=== PATIENT | male | born 1960 | race Caucasian/White ===

== ENCOUNTER → 2020-03-20 08:06 | Outpatient (CLI) | payer OTHER, SELFPAY ==
[2020-03-18 08:47] VITALS: BMI 35.3
--- NOTE | 2020-03-20 08:21 | RAD_ITS ---
STUDY: X-RAY - LEFT TIBIA AND FIBULA REASON FOR EXAM: Male, 59 years old. BRUISING AND SWELLING ON DISTAL LATERAL LEFT LEG TECHNIQUE: 2 view(s) of the tibia and fibula were obtained. COMPARISON: None. FINDINGS: Normal visualized tibia. Normal visualized fibula. There is no demonstrated destructive osseous lesion. Probable soft tissue wound along the lateral lower leg. Correlate with clinical exam. RAD/Tibia & Fibula 2 Views IMPRESSION: Normal x-ray examination of the tibia and fibula. Electronically Signed: Sandip Merritt MD at 17:21 EDT , Service support ,
[2020-03-20 09:13] LABS: Hematocrit 44.7 % (40-54); Hemoglobin 14.4 g/dL (13.0-16.5); Mean Corp Hgb Conc 32.2 g/dL (32-36); Mean Corpuscular Hgb 29.6 pg (27.0-32.0); Mean Corpuscular Volume 91.8 fL (80-94); Mean Platelet Vol. 10.3 fl (6.2-12.0); Platelet Count 247 K/mm3 (150-450); RBC Distribution Width CV 15.1 % (11.6-14.6); RBC Distribution Width SD 49.8 fl (35.1-43.9); Red Blood Count 4.87 M/mm3 (4.6-6.2)
[2020-03-20 09:40] LABS: ALB/GLOB Ratio 1.2 RATIO (0.9-2.4); AST(SGOT) 14 U/L (15-37); Alanine Aminotransfer ALT/SGPT 31 U/L (16-61); Albumin, Serum 4.1 g/dL (3.2-5.0); Alkaline Phosphatase 57 U/L (45-117); Anion Gap 9 (5-15); BUN 20 mg/dL (7-18); BUN/Creat Ratio 26.1 RATIO (10-20); Calcium,Total 9.1 mg/dL (8.5-10.1); Chloride 104 mmol/L (98-107); Creatinine, Serum 0.76 mg/dL (0.70-1.30); EST Glomerular Filtration Rate 110 mL/min (>60); Est Glom Filt Rate - Afr Amer 133 mL/min (>60); Globulin 3.5 g/dL (2.2-4.2); Glucose 127 mg/dL (74-106); Potassium 4.1 mmol/L (3.5-5.1); Prealbumin 29.2 mg/dL (20.0-40.0); Protein, Total 7.6 g/dL (6.4-8.2); Sodium Level 137 mmol/L (136-145)
== END ==
PROVIDERS: PCP Family Medicine; Referring Provider Surgery; Visit Provider Surgery
DX: R60.9 Edema, unspecified (principal)
CPT/HCPCS: 36415; 73590; 80053; 84134; 85027

== ENCOUNTER 2020-04-01 08:30 | Outpatient (RCR) | payer OTHER, SELFPAY ==
[2020-03-18 08:47] VITALS: BP 140/76; PULSE 80; RESP 16; TEMP 36.7; BMI 35.3
--- NOTE | 2020-03-18 13:19 | HP.PCM_ITS ---
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 Current Visit: Yes Code(s): I87.093 - Postthrombotic syndrome with other complications of bilateral lower extremity (7) Hyperpigmentation of skin Status: Chronic Current Visit: Yes Code(s): L81.9 - Disorder of pigmentation, unspecified (8) Lipodermatosclerosis of both lower extremities Status: Chronic Current Visit: Yes Code(s): I83.11 - Varicose veins of right lower extremity with inflammation; I83.12 - Varicose veins of left lower extremity with inflammation (9) Diallo phlebectatica Status: Chronic Current Visit: Yes (10) Wound of left leg Status: Chronic Current Visit: Yes Qualifiers: Encounter type: initial encounter Qualified Code(s): S81.802A - Unspecified open wound, left lower leg, initial encounter Code(s): S81.802A - Unspecified open wound, left lower leg, initial encounter (11) Necrosis Status: Chronic Current Visit: Yes Code(s): I96 - Gangrene, not elsewhere classified (12) Obesity (BMI 35.0-39.9 without comorbidity) Status: Chronic Current Visit: No Code(s): E66.9 - Obesity, unspecified (13) Personal history of thrombophlebitis Status: Chronic Current Visit: Yes Code(s): Z86.72 - Personal history of thrombophlebitis History of Present Illness Date of Service: 03/18/20 Chief Complaint: Open wound of the left lateral calf, status-post incision and drainage of abscess History of Wound: This is a 59-year-old male who was admitted to [facility] approximately 1 month ago with a large abscess on the left lateral calf. On February 11, 2020, he underwent incision and drainage of the abscess. He spent approximately 5 days in the hospital, and was subsequently discharged on Augmentin. The patient claims to sleep on a flat mattress at night. However, he suffers from chronic swelling and edema in both lower extremities. Additionally, he has a history of superficial thrombophlebitis in the left lower extremity, and has undergone a prior left lower extremity vein stripping procedure in the remote past. Patient has developed chronic skin changes in his lower extremities, which include hyperpigmentation and lipodermatosclerosis in the gaiter areas bilaterally. Patient is also noted to have diallo phlebectatica at ankle level bilaterally. The patient claims to be relatively active. Current management includes the use of a wet-to-dry gauze packing daily. It is noted that patient underwent a venous duplex examination during his hospitalization recently, that was negative for any evidence of thrombosis, but indicated valvular incompetence of the deep and superficial venous systems bilaterally. 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 The patient is morbidly obese. He also suffers from hyperlipidemia. Surgical History: - - Patient has previously undergone a left lower extremity vein stripping procedure in the remote past. Home Medications: Ambulatory Orders Medication Instructions Recorded Augmentin 875-125 Tablet 875 mg PO BID 03/18/20 Rosuvastatin Calcium [Crestor] 20 mg PO DAILY 03/18/20 - Family History Paternal - - Patient's father at the age of 72 with a history of cerebrovascular accident and venous disease. Patient's mother at the age of 90, of old age. 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 He uses tobacco products rarely. He consumes alcoholic beverages rarely. He is . Lives: Spouse/ Significant Other Smoking Status: Light Smoker (<10/day) Tobacco Use: Cigarettes Alcohol: Rare Drugs: None Review of Systems Constitutional: Denies: Chills, Fever, Weight Change Eyes: Denies: Pain, Vision Change HEENT: Denies: Difficulty Hearing, Difficulty Swallowing, Sinus Congestion Cardiovascular: Denies: Chest Pain, Palpitations Respiratory: Denies: Cough, Shortness of Breath Gastrointestinal: Denies: Diarrhea, Nausea, Vomiting Genitourinary: Denies: Dysuria, Hematuria Endocrine: Denies: Heat/ Cold Intolerance, Polydipsia, Polyuria Hematologic/ Lymphatic: Denies: Easy Bruising, Easy Bleeding - Physical Exam Vital Signs Temp Pulse Resp BP 98.0 F 80 16 140/76 H 03/18/20 08:47 03/18/20 08:47 03/18/20 08:47 03/18/20 08:47 General: Alert, Oriented x3, Cooperative, No apparent distress, Well developed, Well nourished, - - The patient is morbidly obese HEENT: Atraumatic, PERRLA, EOMI, Normocephalic Oral: Moist Mucosa Neck: No JVD Lungs: Clear to auscultation, Normal air movement, No rhonchi, No wheeze, No rales Cardiovascular: Regular Rhythm, Normal S1, Normal S2 Abdomen: Soft, Non Tender, Non-Distended, Obese Extremities: No clubbing, No cyanosis, No Calf Tenderness, - - Moderate bilateral swelling and edema is noted in the lower extremities. Chronic changes are noted in the lower extremities as well. The skin changes include hyperpigmentation and lipodermatosclerosis in the gaiter areas bilaterally. Diallo phlebectatica is noted at ankle level bilaterally. There is a large open wound noted on the left lateral supramalleolar area. Upon initial inspection, there was noted to be a large amount of frankly nonviable necrotic tissue. Wound dimensions are documented elsewhere. There is no sign of infection or cellulitis. There is noted to be an area of tunneling as well, measurements of which are documented elsewhere. Wound Measurements and Assessment WC - Nurse 1 - General Ulcer Measurement Start: 03/18/20 08:47 Freq: Status: Active Protocol: Activity Type Activity Date Activity User E-Sign Co-Sign Detail Recorded Client Recorded Date Recorded By Document 03/18/20 08:47 [place] [id number] 03/18/20 09:04 [place] 03/18/20 08:47 Wound Center Nurse 1 [Ulcer Assessment] #1 Lateral LLE -Combined with other wound No -Current Size (cm) - Length 5 -Current Size (cm) - Width 5.5 -Current Size (cm) - Depth 0.8 -Total Square Cm 27.5 -Date of Last Picture (Recall this 03/18/20 field) -Photo Taken Yes -Tunneling Yes -Tunneling Position (O'clock) 1 -Tunneling Distance (cm) 3.5 -Circular Undermining No -Classification - Thickness Full Thickness with Exposed Support Structure -Exudate Amt Large -Exudate Type Serosanguineous -Wound Margin Thickened & Rolled Under -Granulation Amt Small (1-33%) -Granulation Quality Loda,Red -Slough/Fibrin Yes -Necrosis Amt Large (67-100%) -Texture (Lois-wound Skin Appearance) Induration -Moisture (Lois-wound Skin Appearance No Abnormality ) -Color (Lois-wound Skin Appearance) Hemosiderin Staining -Temperature (Lois-wound Skin Hot Appearance) -Tenderness on Palpation (Lois-wound Yes Skin Appearance) -Ulcer Cleansing Rinsed/ Irrigated with Saline -Foul Odor after Cleansing No -Anesthetic Used 4% Lidocaine Solution [Edema Assessment] -Left Calf (cm) 45 -Point of measurement (cm from the 35 medial instep) -Left Ankle (cm) 30 -Point of Measurement (cm from the 15 medial instep) WC - Nurse 2 - General Ulcer CM Notes Start: 03/18/20 08:47 Freq: Status: Active Protocol: Activity Type Activity Date Activity User E-Sign Co-Sign Detail Recorded Client Recorded Date Recorded By Document 03/18/20 09:14 DV [id number] 03/18/20 09:31 DV 03/18/20 09:14 Wound Center Nurse 2 [Procedure/Treatment] #1 Lateral LLE -Time 09:15 -Correct Patient Yes -Correct Side, Site, Position Yes -Correct Procedure Yes -Procedure Performed Yes -Type of Procedure Debridement -Clinical Debridement Subcutaneous -Post Debridement Size (cm) - Length 6.0 -Post Debridement Size (cm) - Width 5.5 -Post Debridement Size (cm) - Depth 0.4 -Total Square Cm 33.00 -Wound/Ulcer Outcome Not Healed -Ulcer Cleansing Rinsed/ Irrigated with Saline -Foul Odor after Cleansing No -Bioengineered Tissue No -Bleeding Controlled with Pressure -Offloading No -Treatment Response Procedure Tolerated Well [See Physician Procedure note for Specifics] Pain Scale: 0-10 Numeric [Pain] -Is Patient Pain Free? Yes Musculoskeletal: No Muscle Wasting Neurological: Cranial nerves II-XII grossly intact, Neuro grossly intact Psych/Mental Status: Normal Affect, Appropriate, Alert and oriented to time, place, person, mood and affect Debridement Note Post-Debridement Measurements/Treatment WC - Nurse 2 - General Ulcer CM Notes Start: 03/18/20 08:47 Freq: Status: Active Protocol: Activity Type Activity Date Activity User E-Sign Co-Sign Detail Recorded Client Recorded Date Recorded By Document 03/18/20 09:14 DV [id number] 03/18/20 09:31 DV 03/18/20 09:14 Wound Center Nurse 2 #1 Lateral LLE -Time 09:15 -Correct Patient Yes -Correct Side, Site, Position Yes -Correct Procedure Yes -Procedure Performed Yes -Type of Procedure Debridement -Clinical Debridement Subcutaneous -Post Debridement Size (cm) - Length 6.0 -Post Debridement Size (cm) - Width 5.5 -Post Debridement Size (cm) - Depth 0.4 -Total Square Cm 33.00 -Wound/Ulcer Outcome Not Healed -Ulcer Cleansing Rinsed/ Irrigated with Saline -Foul Odor after Cleansing No -Bioengineered Tissue No -Bleeding Controlled with Pressure -Offloading No -Treatment Response Procedure Tolerated Well Pain Scale: 0-10 Numeric Is Patient Pain Free? Yes Laterality: Left - Lateral supramalleolar area Anesthesia Used: 5% Lidocaine Gel Depth: Down to and including healthy tissue, in the subcutaneous layer Percentage of wound debrided: 100 Instrument Used: 5mm curette Tissue Removed: Frankly necrotic and nonviable tissue Severity: Fat Layer Exposed Amount of bleeding with debridement: Mild Bleeding Controlled with: Compression and gauze Patient tolerated procedure well Assessment/Plan Active Problems Leg swelling (Chronic) Leg edema (Chronic) Abscess of left leg (Chronic) Surgical wound present (Chronic) Chronic venous insufficiency (Chronic) 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 He was hospitalized for approximately 5 days, and underwent incision and drainage of an abscess. He presents now for definitive management. At the time of his initial presentation, patient is noted to have a large amount of frankly necrotic and nonviable tissue present at the site of his former abscess, with some tunneling as well. The patient also suffers from longstanding swelling and edema of his lower extremities, and is known to have a history of superficial thrombophlebitis in the left lower extremity previously. Physical findings suggest longstanding chronic venous insufficiency.. Plan: The patient has been advised to implement conservative treatment measures. These are to include leg elevation. He is to continue sleeping on a flat mattress at night. His legs are to be elevated to heart level, or higher, even during daytime hours. This is to be implemented as much as possible. The patient has been advised to refrain from prolonged, idle standing and sitting. Activity has been encouraged. Implementation of the calf and foot muscle pumps has been explained. Weight loss is also been recommended. We are to continue compression by means of Tayo wraps to both lower extremities, though enhanced compression will be implemented following performance of the patient's no ninvasive lower extremity arterial study. The bulk of the nonviable and necrotic tissue has been removed from the patient's wound by means of excisional debridement today. We are to implement the use of collagenase Santyl topically, which will be applied on a daily basis. The patient has been instructed in the appropriate means of application. 1/4 inch Nu Gauze will be used to pack the area of tunneling daily basis. We are to arrange for the patient to undergo a battery of diagnostic studies, including a CBC, comprehensive metabolic profile, and a serum prealbumin. An x-ray of the involved area will also be obtained. The patient will also be scheduled for a venous duplex examination and a noninvasive lower extremity arterial study. Patient is to return in 1 week for reassessment. Patient smokes rarely, but has been advised to refrain from his smoking habit. Influenza vaccine was not administered today. Patient stands 5 feet 10 inches tall. He weighs 246 pounds. His BMI is 35.3, which places him in a class II obesity category. Weight loss has been recommended, in collaboration with the patient's primary care physician has been advised.
--- NOTE | 2020-03-19 15:50 | WC ---
No precert need per [facility] insurance Call Ref# [id number]
[2020-03-25 08:09] VITALS: BP 142/80; PULSE 90; RESP 20; TEMP 36.8; BMI 35.3
--- NOTE | 2020-03-25 08:43 | PCM.WC.HP ---
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 Current Visit: Yes Code(s): I87.093 - Postthrombotic syndrome with other complications of bilateral lower extremity (7) Hyperpigmentation of skin Status: Chronic Current Visit: Yes Code(s): L81.9 - Disorder of pigmentation, unspecified (8) Lipodermatosclerosis of both lower extremities Status: Chronic Current Visit: Yes Code(s): I83.11 - Varicose veins of right lower extremity with inflammation; I83.12 - Varicose veins of left lower extremity with inflammation (9) Diallo phlebectatica Status: Chronic Current Visit: Yes (10) Wound of left leg Status: Chronic Current Visit: Yes Qualifiers: Encounter type: initial encounter Qualified Code(s): S81.802A - Unspecified open wound, left lower leg, initial encounter Code(s): S81.802A - Unspecified open wound, left lower leg, initial encounter (11) Necrosis Status: Chronic Current Visit: Yes Code(s): I96 - Gangrene, not elsewhere classified (12) Obesity (BMI 35.0-39.9 without comorbidity) Status: Chronic Current Visit: No Code(s): E66.9 - Obesity, unspecified (13) Personal history of thrombophlebitis Status: Chronic Current Visit: Yes Code(s): Z86.72 - Personal history of thrombophlebitis History of Present Illness Date of Service: 03/25/20 Chief Complaint: Open wound of the left lateral calf, status-post incision and drainage of abscess History of Wound: This is a 59-year-old male who was admitted to [facility] approximately 1 month ago with a large abscess on the left lateral calf. On February 11, 2020, he underwent incision and drainage of the abscess. He spent approximately 5 days in the hospital, and was subsequently discharged on Augmentin. The patient claims to sleep on a flat mattress at night. However, he suffers from chronic swelling and edema in both lower extremities. Additionally, he has a history of superficial thrombophlebitis in the left lower extremity, and has undergone a prior left lower extremity vein stripping procedure in the remote past. Patient has developed chronic skin changes in his lower extremities, which include hyperpigmentation and lipodermatosclerosis in the gaiter areas bilaterally. Patient is also noted to have diallo phlebectatica at ankle level bilaterally. The patient claims to be relatively active. Current management includes the use of a wet-to-dry gauze packing daily. It is noted that patient underwent a venous duplex examination during his hospitalization recently, that was negative for any evidence of thrombosis, but indicated valvular incompetence of the deep and superficial venous systems bilaterally. 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 Home Medications: Ambulatory Orders Medication Instructions Recorded Augmentin 875-125 Tablet 875 mg PO BID 03/18/20 Rosuvastatin Calcium [Crestor] 20 mg PO DAILY 03/18/20 - Family History Paternal - - Patient's father at the age of 72 with a history of cerebrovascular accident and venous disease. Patient's mother at the age of 90, of old age. Lives: Spouse/ Significant Other Smoking Status: Light Smoker (<10/day) Tobacco Use: Cigarettes Alcohol: Rare Drugs: None Review of Systems Constitutional: Denies: Chills, Fever, Weight Change Eyes: Denies: Pain, Vision Change HEENT: Denies: Difficulty Hearing, Difficulty Swallowing, Sinus Congestion Cardiovascular: Denies: Chest Pain, Palpitations Respiratory: Denies: Cough, Shortness of Breath Gastrointestinal: Denies: Diarrhea, Nausea, Vomiting Genitourinary: Denies: Dysuria, Hematuria Endocrine: Denies: Heat/ Cold Intolerance, Polydipsia, Polyuria Hematologic/ Lymphatic: Denies: Easy Bruising, Easy Bleeding - Physical Exam Vital Signs Temp Pulse Resp BP 98.3 F 90 20 H 142/80 H 03/25/20 08:09 03/25/20 08:09 03/25/20 08:09 03/25/20 08:09 General: Alert, Oriented x3, Cooperative, No apparent distress, Well developed, Well nourished HEENT: Atraumatic, PERRLA, EOMI, Normocephalic Oral: Moist Mucosa Neck: No JVD Lungs: Normal air movement Abdomen: Non-Distended Extremities: No clubbing, No cyanosis, No Calf Tenderness, - - Only minimal swelling and edema are noted in the patient's lower extremities. The wound on the left lateral calf persists. There is a moderate amount of bioburden and nonviable tissue. However, it appears improved over that at his initial visit 1 week ago. Tunneling is noted at the superior edge. There is no sign of infection or cellulitis. Dimensions are documented elsewhere. Skin: No rashes Wound Measurements and Assessment WC - Nurse 1 - General Ulcer Measurement Start: 03/18/20 08:47 Freq: Status: Active Protocol: Activity Type Activity Date Activity User E-Sign Co-Sign Detail Recorded Client Recorded Date Recorded By Document 03/25/20 08:09 HENRY [id number] 03/25/20 08:20 DL 03/25/20 08:09 Wound Center Nurse 1 [Ulcer Assessment] #1 Lateral LLE -Current Size (cm) - Length 5 -Current Size (cm) - Width 5.5 -Current Size (cm) - Depth 0.5 -Total Square Cm 27.5 -Photo Taken No -Tunneling Position (O'clock) 1 -Tunneling Distance (cm) 2.8 -Exudate Amt Small -Exudate Type Serosanguineous -Wound Margin Thickened & Rolled Under -Granulation Amt Medium (34-66%) -Granulation Quality Red -Necrosis Amt Medium (34-66%) -Necrotic Tissue Type Adherent Slough -Structure Exposed N/A -Texture (Lois-wound Skin Appearance) Scarring -Moisture (Lois-wound Skin Appearance No Abnormality ) -Color (Lois-wound Skin Appearance) Hemosiderin Staining -Temperature (Lois-wound Skin No Abnormality Appearance) (Pt Warm) -Tenderness on Palpation (Lois-wound No Skin Appearance) -Ulcer Cleansing Wound Cleanser -Foul Odor after Cleansing No -Anesthetic Used 4% Lidocaine Solution,5% Lidocaine Gel [Edema Assessment] -Left Calf (cm) 45.5 -Left Ankle (cm) 27.3 Musculoskeletal: No Muscle Wasting Neurological: Cranial nerves II-XII grossly intact, Neuro grossly intact Psych/Mental Status: Normal Affect, Appropriate, Alert and oriented to time, place, person, mood and affect Debridement Note Post-Debridement Measurements/Treatment WC - Nurse 2 - General Ulcer CM Notes Start: 03/18/20 08:47 Freq: Status: Active Protocol: Activity Type Activity Date Activity User E-Sign Co-Sign Detail Recorded Client Recorded Date Recorded By Document 03/18/20 09:14 DV [id number] 03/18/20 09:31 DV 03/18/20 09:14 Wound Center Nurse 2 #1 Lateral LLE -Time 09:15 -Correct Patient Yes -Correct Side, Site, Position Yes -Correct Procedure Yes -Procedure Performed Yes -Type of Procedure Debridement -Clinical Debridement Subcutaneous -Post Debridement Size (cm) - Length 6.0 -Post Debridement Size (cm) - Width 5.5 -Post Debridement Size (cm) - Depth 0.4 -Total Square Cm 33.00 -Wound/Ulcer Outcome Not Healed -Ulcer Cleansing Rinsed/ Irrigated with Saline -Foul Odor after Cleansing No -Bioengineered Tissue No -Bleeding Controlled with Pressure -Offloading No -Treatment Response Procedure Tolerated Well Pain Scale: 0-10 Numeric Is Patient Pain Free? Yes Laterality: Left - Lateral calf Type of Debridement: Excisional debridement Anesthesia Used: 5% Lidocaine Gel Depth: Down to and including healthy tissue, in the subcutaneous layer Percentage of wound debrided: 100 Instrument Used: 5mm curette, Forceps, - - Scissors Tissue Removed: Bioburden and nonviable tissue Severity: Fat Layer Exposed Amount of bleeding with debridement: Mild Bleeding Controlled with: Compression and gauze Patient tolerated procedure well Assessment/Plan Active Problems Leg swelling (Chronic) Leg edema (Chronic) Abscess of left leg (Chronic) Surgical wound present (Chronic) Chronic venous insufficiency (Chronic) 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 He was hospitalized for approximately 5 days, and underwent incision and drainage of an abscess. He presented here for definitive management. At the time of his initial presentation, patient was noted to have a large amount of frankly necrotic and nonviable tissue present at the site of his former abscess, with some tunneling as well. The patient also suffers from longstanding swelling and edema of his lower extremities, and is known to have a history of superficial thrombophlebitis in the left lower extremity previously. Physical findings suggest longstanding chronic venous insufficiency. The patient has undergone a battery of diagnostic testing. An x-ray of the left tibia/fibula shows soft tissue changes, but no other abnormalities. Laboratory results from 03/20/2020 are as follows: White blood count 6.0, hemoglobin 14.4, hematocrit 44.7, platelets 247,000, sodium 137, potassium 4.1, chloride 104, BUN 20, creatinine 0.76, glucose 127, calcium 9.1, total bilirubin 0.60, AST 14, ALT 31, alkaline phosphatase 57, total protein 7.6, albumin 4.1, prealbumin 29.2. Plan: The patient has been advised to continue conservative treatment measures. These are to include leg elevation. He is to continue sleeping on a flat mattress at night. His legs are to be elevated to heart level, or higher, even during daytime hours. This is to be implemented as much as possible. The patient has been advised to refrain from prolonged, idle standing and sitting. Activity has been encouraged. Implementation of the calf and foot muscle pumps has been explained. Weight loss is also been recommended. We are to continue compression by means of Tayo wraps to both lower extremities, though enhanced compression will be implemented following performance of the patient's noninvasive lower extremity arterial study. The bulk of the nonviable and necrotic tissue has been removed from the patient's wound by means of excisional debridement today. We are to continue the use of collagenase Santyl topically, which will be applied on a daily basis. The patient has been instructed in the appropriate means of application. 1/4 inch Nu Gauze will be used to pack the area of tunneling daily basis. The patient has been scheduled for a venous duplex examination and a noninvasive lower extremity arterial study. Patient is to return in 1 week for reassessment. Patient smokes rarely, but has been advised to refrain from his smoking habit. Influenza vaccine was not administered today. Patient stands 5 feet 10 inches tall. He weighs 246 pounds. His BMI is 35.3, which places him in a class II obesity category. Weight loss has been recommended, in collaboration with the patient's primary care physician has been advised.
--- NOTE | 2020-03-31 09:00 | VDLE_ITS ---
Reason For Study: swelling, pain RIGHT LEFT CFV is compressible, spontaneous, phasic, CFV is compressible, spontaneous, phasic, competent and demonstrates normal competent, and demonstrates normal augmentation. augmentation. FV is compressible, spontaneous, phasic, FV is compressible, spontaneous, phasic, competent and demonstrates normal competent and demonstrates normal augmentation. augmentation. POP V is compressible, spontaneous, phasic, POP V is compressible, spontaneous, phasic, competent and demonstrates normal competent and demonstrates normal augmentation. augmentation. T/P Trunk is compressible. T/P Trunk is compressible. PTV is compressible. PTV is compressible. RT PerV is compressible. LT PerV is compressible. SFJ is INCOMPETENT and measures 0.74 x 0.89 SFJ is INCOMPETENT and measures 1.38 x 1.40 cm. cm. GSV proximal thigh measures 0.50 x 0.52 cm. GSV proximal thigh measures 0.95 x 0.97 cm. GSV at knee measures 0.55 x 0.55 cm. GSV at knee measures 0.88 x 0.88 cm. GSV INCOMPETENT throughout for greater than GSV INCOMPETENT throughout for greater than 0.5 seconds. 0.5 seconds. SSV proximal calf is competent and measures SSV at junction is competent and measures 0.37 x 0.37 cm. 0.41 x 0.40 cm. Proximal calf varocosities are compressible. Proximal calf varocosities are compressible. Procedure Exam performed in department. The exam was diagnostic. A preliminary report was called and/or faxed to . Interpretation Summary Deep veins of the lower extremities are bilaterally patent and compressible segmentally. There is no evidence of deep vein thrombosis on either side. Valvular competence appears intact within the proximal deep venous systems bilaterally. The great saphenous veins appear bilaterally patent and compressible segmentally. Sapheno-femoral junctions are bilaterally incompetent . Segmental valvular incompetence is noted within the great saphenous veins bilaterally. Small saphenous veins are patent and competent bilaterally. Compressible varicosities are noted in the proximal calves bilaterally. Ordering Physician: Juan Alberto Muñoz Referring Physician: Tal Felix Performed By: Lucy Foley, DEDRA, RVT
--- NOTE | 2020-03-31 09:01 | ART_ITS ---
Reason For Study: PAIN/SWELLING Procedure A bilateral lower extremity continuous wave Doppler with analog waveform analysis and ankle brachial indexes. Left Segmental Pressures Left brachial= 140mmHg. Left dorsalis pedis artery = 178mmHg. Left posterior tibial artery = 172mmHg. The left dorsalis pedis waveforms are biphasic. The left posterior tibial artery waveforms are triphasic. Right Segmental Pressures Right brachial= 140mmHg. Right dorsalis pedis artery = 178mmHg. Right posterior tibial artery = 183mmHg. Right digit = 113 mmHg. The right dorsalis pedis waveforms are triphasic. The right posterior tibial artery waveforms are triphasic. Indices The right resting ankle brachial index is 1.31. The right ankle brachial index by the dorsalis pedis is 1.27. The right ankle brachial index by the posterior tibial artery is 1.31. ABIs were done at calf level. The left resting ankle brachial index is 1.27. The left ankle brachial index by the dorsalis pedis is 1.22. The left ankle brachial index by the posterior tibial artery is 1.27. ABIs were done at calf level due to LLE wound at ankle level. Interpretation Summary Triphasic Doppler waveforms are noted at ankle level on the right. Triphasic and biphasic Doppler waveforms are noted at ankle level on the left. Pulse-volume recordings appear satisfactory at calf and digital levels bilaterally. Resting ankle-brachial indices were not determined due to the presence of a wound. Calf-brachial indices and digital-brachial indices are normal bilaterally. There is no evidence of significant arterial occlusive disease in the lower extremities bilaterally. Ordering Physician: Juan Alberto Muñoz Referring Physician: Juan Alberto Muñoz Performed By: Lucy Foley RVT, RDCS
[2020-04-01 08:21] VITALS: TEMP 36.7; BMI 35.3
--- NOTE | 2020-04-01 08:52 | HP.PCM_ITS ---
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 Current Visit: Yes Code(s): I87.093 - Postthrombotic syndrome with other complications of bilateral lower extremity (7) Hyperpigmentation of skin Status: Chronic Current Visit: Yes Code(s): L81.9 - Disorder of pigmentation, unspecified (8) Lipodermatosclerosis of both lower extremities Status: Chronic Current Visit: Yes Code(s): I83.11 - Varicose veins of right lower extremity with inflammation; I83.12 - Varicose veins of left lower extremity with inflammation (9) Diallo phlebectatica Status: Chronic Current Visit: Yes (10) Wound of left leg Status: Chronic Current Visit: Yes Qualifiers: Encounter type: initial encounter Qualified Code(s): S81.802A - Unspecified open wound, left lower leg, initial encounter Code(s): S81.802A - Unspecified open wound, left lower leg, initial encounter (11) Necrosis Status: Chronic Current Visit: Yes Code(s): I96 - Gangrene, not elsewhere classified (12) Obesity (BMI 35.0-39.9 without comorbidity) Status: Chronic Current Visit: No Code(s): E66.9 - Obesity, unspecified (13) Personal history of thrombophlebitis Status: Chronic Current Visit: Yes Code(s): Z86.72 - Personal history of thrombophlebitis History of Present Illness Date of Service: 04/01/20 Chief Complaint: Open wound of the left lateral calf, status-post incision and drainage of abscess History of Wound: This is a 59-year-old male who was admitted to [facility] approximately 1 month ago with a large abscess on the left lateral calf. On February 11, 2020, he underwent incision and drainage of the abscess. He spent approximately 5 days in the hospital, and was subsequently discharged on Augmentin. The patient claims to sleep on a flat mattress at night. However, he suffers from chronic swelling and edema in both lower extremities. Additionally, he has a history of superficial thrombophlebitis in the left lower extremity, and has undergone a prior left lower extremity vein stripping procedure in the remote past. Patient has developed chronic skin changes in his lower extremities, which include hyperpigmentation and lipodermatosclerosis in the gaiter areas bilaterally. Patient is also noted to have diallo phlebectatica at ankle level bilaterally. The patient claims to be relatively active. Current management includes the use of a wet-to-dry gauze packing daily. It is noted that patient underwent a venous duplex examination during his hospitalization recently, that was negative for any evidence of thrombosis, but indicated valvular incompetence of the deep and superficial venous systems bilaterally. 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 Home Medications: Ambulatory Orders Medication Instructions Recorded Augmentin 875-125 Tablet 875 mg PO BID 03/18/20 Rosuvastatin Calcium [Crestor] 20 mg PO DAILY 03/18/20 - Family History Paternal - - Patient's father at the age of 72 with a history of cerebrovascular accident and venous disease. Patient's mother at the age of 90, of old age. Lives: Spouse/ Significant Other Smoking Status: Light Smoker (<10/day) Tobacco Use: Cigarettes Alcohol: Rare Drugs: None Review of Systems Constitutional: Denies: Chills, Fever, Weight Change Eyes: Denies: Pain, Vision Change HEENT: Denies: Difficulty Hearing, Difficulty Swallowing, Sinus Congestion Cardiovascular: Denies: Chest Pain, Palpitations Respiratory: Denies: Cough, Shortness of Breath Gastrointestinal: Denies: Diarrhea, Nausea, Vomiting Genitourinary: Denies: Dysuria, Hematuria Endocrine: Denies: Heat/ Cold Intolerance, Polydipsia, Polyuria Hematologic/ Lymphatic: Denies: Easy Bruising, Easy Bleeding - Physical Exam Vital Signs Temp Pulse Resp BP 98.0 F 90 20 H 142/80 H 04/01/20 08:21 03/25/20 08:09 03/25/20 08:09 03/25/20 08:09 General: Alert, Oriented x3, Cooperative, No apparent distress, Well developed, Well nourished HEENT: Atraumatic, PERRLA, EOMI, Normocephalic Oral: Moist Mucosa Neck: No JVD Lungs: Normal air movement Abdomen: Non-Distended, Obese Extremities: No clubbing, No cyanosis, No Calf Tenderness, - - Moderate swelling and edema persist in the patient's lower extremities bilaterally. The surgical wound persists on the left lateral calf. There is no sign of infection or cellulitis. There is a moderate amount of bioburden and nonviable tissue. Dimensions are documented elsewhere. Tunneling persists at the superior pole. In general, there appears to be slight improvement, with less nonviable tissue present within the wound bed. Skin: No rashes Wound Measurements and Assessment WC - Nurse 1 - General Ulcer Measurement Start: 03/18/20 08:47 Freq: Status: Active Protocol: Activity Type Activity Date Activity User E-Sign Co-Sign Detail Recorded Client Recorded Date Recorded By Document 04/01/20 08:21 DV [id number] 04/01/20 08:26 DV 04/01/20 08:21 Wound Center Nurse 1 [Ulcer Assessment] #1 Lateral LLE -Combined with other wound No -Current Size (cm) - Length 5.1 -Current Size (cm) - Width 5.0 -Current Size (cm) - Depth 1.1 -Total Square Cm 25.50 -Photo Taken No -Epithelialization None Present -Tunneling Yes -Tunneling Position (O'clock) 1 -Tunneling Distance (cm) 2.6 -Undermining/Tunneling No -Circular Undermining No -Classification - Thickness Full Thickness without Exposed Support Structure -Exudate Amt Large -Exudate Type Serosanguineous -Wound Margin Indistinct, Non -Visible -Granulation Amt Small (1-33%) -Granulation Quality Pale,[place] -Slough/Fibrin Yes -Necrosis Amt Medium (34-66%) -Necrotic Tissue Type Adherent Slough -Structure Exposed None/Limited to Skin Breakdown -Texture (Lois-wound Skin Appearance) Assessed, Localized Edema -Moisture (Lois-wound Skin Appearance Assessed, ) Weeping -Color (Lois-wound Skin Appearance) Assessed -Tenderness on Palpation (Lois-wound Yes Skin Appearance) -Ulcer Cleansing Rinsed/ Irrigated with Saline -Foul Odor after Cleansing No -Anesthetic Used 4% Lidocaine Solution [Edema Assessment] -Lower Limb Edema Present No WC - Nurse 2 - General Ulcer CM Notes Start: 03/18/20 08:47 Freq: Status: Active Protocol: Activity Type Activity Date Activity User E-Sign Co-Sign Detail Recorded Client Recorded Date Recorded By Document 04/01/20 08:45 DV [id number] 04/01/20 08:50 DV 04/01/20 08:45 Wound Center Nurse 2 [Procedure/Treatment] #1 Lateral LLE -Time 08:46 -Correct Patient Yes -Correct Side, Site, Position Yes -Correct Procedure Yes -Procedure Performed Yes -Type of Procedure Debridement -Clinical Debridement Subcutaneous -Post Debridement Size (cm) - Length 5.3 -Post Debridement Size (cm) - Width 5.0 -Post Debridement Size (cm) - Depth 1.2 -Total Square Cm 26.50 -Wound/Ulcer Outcome Healed- Epithelialized -Ulcer Cleansing Rinsed/ Irrigated with Saline -Foul Odor after Cleansing No -Bioengineered Tissue No -Bleeding Controlled with Pressure -Offloading No -Treatment Response Procedure Tolerated Well [See Physician Procedure note for Specifics] Pain Scale: 0-10 Numeric [Pain] -Is Patient Pain Free? Yes Musculoskeletal: No Muscle Wasting Neurological: Cranial nerves II-XII grossly intact, Neuro grossly intact Psych/Mental Status: Normal Affect, Appropriate, Alert and oriented to time, place, person, mood and affect Debridement Note Post-Debridement Measurements/Treatment WC - Nurse 2 - General Ulcer CM Notes Start: 03/18/20 08:47 Freq: Status: Active Protocol: Activity Type Activity Date Activity User E-Sign Co-Sign Detail Recorded Client Recorded Date Recorded By Document 03/18/20 09:14 DV [id number] 03/18/20 09:31 DV Document 03/25/20 08:41 DV [id number] 03/25/20 08:43 DV Document 04/01/20 08:45 DV [id number] 04/01/20 08:50 DV 03/18/20 03/25/20 04/01/20 09:14 08:41 08:45 Wound Center Nurse 2 #1 Lateral LLE -Time 09:15 08:42 08:46 -Correct Patient Yes Yes Yes -Correct Side, Site, Position Yes Yes Yes -Correct Procedure Yes Yes Yes -Procedure Performed Yes Yes Yes -Type of Procedure Debridement Debridement Debridement -Clinical Debridement Subcutaneous Subcutaneous Subcutaneous -Post Debridement Size (cm) - Length 6.0 5.4 5.3 -Post Debridement Size (cm) - Width 5.5 5.0 5.0 -Post Debridement Size (cm) - Depth 0.4 1.4 1.2 -Total Square Cm 33.00 27.00 26.50 -Wound/Ulcer Outcome Not Healed Not Healed Healed- Epithelialized -Ulcer Cleansing Rinsed/ Rinsed/ Rinsed/ Irrigated with Irrigated with Irrigated with Saline Saline Saline -Foul Odor after Cleansing No No No -Bioengineered Tissue No No No -Bleeding Controlled with Pressure Pressure Pressure -Offloading No No No -Treatment Response Procedure Procedure Procedure Tolerated Well Tolerated Well Tolerated Well Pain Scale: 0-10 Numeric Is Patient Pain Free? Yes Yes Yes Laterality: Left - Lateral calf Type of Debridement: Excisional debridement Anesthesia Used: 5% Lidocaine Gel Depth: Down to and including healthy tissue, in the subcutaneous layer Percentage of wound debrided: 100 Instrument Used: 5mm curette Tissue Removed: Bioburden and nonviable tissue Severity: Fat Layer Exposed Amount of bleeding with debridement: Mild Bleeding Controlled with: Compression and gauze Patient tolerated procedure well Assessment/Plan Active Problems Leg swelling (Chronic) Leg edema (Chronic) Abscess of left leg (Chronic) Surgical wound present (Chronic) Chronic venous insufficiency (Chronic) 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 He was hospitalized for approximately 5 days, and underwent incision and drainage of the abscess. He presented here for definitive management. At the time of his initial presentation, patient was noted to have a large amount of frankly necrotic and nonviable tissue present at the site of his former abscess, with some tunneling as well. The patient also suffers from longstanding swelling and edema of his lower extremities, and is known to have a history of superficial thrombophlebitis in the left lower extremity previously. Physical findings suggest longstanding chronic venous insufficiency. The patient has undergone a battery of diagnostic testing. An x-ray of the left tibia/fibula shows soft tissue changes, but no other abnormalities. Laboratory results from 03/20/2020 are as follows: White blood count 6.0, hemoglobin 14.4, hematocrit 44.7, platelets 247,000, sodium 137, potassium 4.1, chloride 104, BUN 20, creatinine 0.76, glucose 127, calcium 9.1, total bilirubin 0.60, AST 14, ALT 31, alkaline phosphatase 57, total protein 7.6, albumin 4.1, prealbumin 29.2. Recently, a noninvasive lower extremity arterial study revealed no evidence of significant arterial occlusive disease in the lower extremities. A venous duplex examination revealed incompetence of the great saphenous veins bilaterally. Plan: The patient has been advised to continue conservative treatment measures. These are to include leg elevation. He is to continue sleeping on a flat mattress at night. His legs are to be elevated to heart level, or higher, even during daytime hours. This is to be implemented as much as possible. The patient has been advised to refrain from prolonged, idle standing and sitting. Activity has been encouraged. Implementation of the calf and foot muscle pumps has been explained. Weight loss is also been recommended. We are to continue compression by means of SurePress wraps to both lower extremities. The bulk of the nonviable and necrotic tissue has been removed from the patient's wound by means of excisional debridements. We are to continue the use of collagenase Santyl topically, which will be applied on a daily basis. The patient has been instructed in the appropriate means of application. 1/4 inch Nu Gauze will be used to pack the area of tunneling on a daily basis. The patient is to return in 1 week for reassessment. We will consider transitioning to the use of negative pressure wound therapy in the near future, perhaps next week, depending upon the patient's perceived progress at his next visit. Patient smokes rarely, but has been advised to refrain from his smoking habit. Influenza vaccine was not administered today. Patient stands 5 feet 10 inches tall. He weighs 246 pounds. His BMI is 35.3, which places him in a class II obesity category. Weight loss has been recommended, in collaboration with the patient's primary care physician has been advised.
[2020-04-01 12:28] VITALS: BMI 35.3
== END 2020-04-01 23:59 ==
LOC: WC 08:30
PROVIDERS: PCP Family Medicine; Referring Provider Surgery; Visit Provider Surgery
DX: I83.12 Varicose veins of left lower extremity with inflammation (principal); I83.11 Varicose veins of right lower extremity with inflammation; M79.89 Other specified soft tissue disorders; R60.0 Localized edema; L02.416 Cutaneous abscess of left lower limb; T14.8XXA Other injury of unspecified body region, initial encounter; Y83.8 Other surgical procedures as the cause of abnormal reaction of the patient, or of later complication, without mention of misadventure at the time of the procedure; E66.01 Morbid (severe) obesity due to excess calories; Z68.35 Body mass index [BMI] 35.0-35.9, adult; E78.5 Hyperlipidemia, unspecified; Z79.899 Other long term (current) drug therapy; F17.210 Nicotine dependence, cigarettes, uncomplicated; I96 Gangrene, not elsewhere classified
CPT/HCPCS: 11042; 11045; 93922; 93970; 99203; G0463

== ENCOUNTER 2020-04-29 08:00 | Outpatient (RCR) | payer OTHER, SELFPAY ==
[2020-04-02 00:36] VITALS: BP 142/80; PULSE 90; RESP 20; TEMP 36.7
--- NOTE | 2020-04-03 11:52 | WC ---
There is notification from [facility] that the use [facility] will be covered by the patients insurance. Insurance contact is Giovani and Ref# [id number]
[2020-04-08 08:28] VITALS: BP 145/86; PULSE 91; RESP 16; TEMP 36.4; BMI 35.3
--- NOTE | 2020-04-08 08:50 | PCM.WC.HP ---
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 Current Visit: Yes Code(s): I87.093 - Postthrombotic syndrome with other complications of bilateral lower extremity (7) Hyperpigmentation of skin Status: Chronic Current Visit: Yes Code(s): L81.9 - Disorder of pigmentation, unspecified (8) Lipodermatosclerosis of both lower extremities Status: Chronic Current Visit: Yes Code(s): I83.11 - Varicose veins of right lower extremity with inflammation; I83.12 - Varicose veins of left lower extremity with inflammation (9) Diallo phlebectatica Status: Chronic Current Visit: Yes (10) Wound of left leg Status: Chronic Current Visit: Yes Qualifiers: Encounter type: subsequent encounter Qualified Code(s): S81.802D - Unspecified open wound, left lower leg, subsequent encounter Code(s): S81.802A - Unspecified open wound, left lower leg, initial encounter (11) Necrosis Status: Chronic Current Visit: No Code(s): I96 - Gangrene, not elsewhere classified (12) Obesity (BMI 35.0-39.9 without comorbidity) Status: Chronic Current Visit: No Code(s): E66.9 - Obesity, unspecified (13) Personal history of thrombophlebitis Status: Chronic Current Visit: No Code(s): Z86.72 - Personal history of thrombophlebitis History of Present Illness Date of Service: 04/08/20 Chief Complaint: Open wound of the left lateral calf, status-post incision and drainage of abscess History of Wound: This is a 59-year-old male who was admitted to [facility] approximately 1 month ago with a large abscess on the left lateral calf. On February 11, 2020, he underwent incision and drainage of the abscess. He spent approximately 5 days in the hospital, and was subsequently discharged on Augmentin. The patient claims to sleep on a flat mattress at night. However, he suffers from chronic swelling and edema in both lower extremities. Additionally, he has a history of superficial thrombophlebitis in the left lower extremity, and has undergone a prior left lower extremity vein stripping procedure in the remote past. Patient has developed chronic skin changes in his lower extremities, which include hyperpigmentation and lipodermatosclerosis in the gaiter areas bilaterally. Patient is also noted to have diallo phlebectatica at ankle level bilaterally. The patient claims to be relatively active. Current management includes the use of a wet-to-dry gauze packing daily. It is noted that patient underwent a venous duplex examination during his hospitalization recently, that was negative for any evidence of thrombosis, but indicated valvular incompetence of the deep and superficial venous systems bilaterally. 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 Home Medications: Ambulatory Orders Medication Instructions Recorded Augmentin 875-125 Tablet 875 mg PO BID 03/18/20 Rosuvastatin Calcium [Crestor] 20 mg PO DAILY 03/18/20 - Family History Paternal - - Patient's father at the age of 72 with a history of cerebrovascular accident and venous disease. Patient's mother at the age of 90, of old age. Smoking Status: Light Smoker (<10/day) Tobacco Use: Cigarettes Review of Systems Constitutional: Denies: Chills, Fever, Weight Change Eyes: Denies: Pain, Vision Change HEENT: Denies: Difficulty Hearing, Difficulty Swallowing, Sinus Congestion Cardiovascular: Denies: Chest Pain, Palpitations Respiratory: Denies: Cough, Shortness of Breath Gastrointestinal: Denies: Diarrhea, Nausea, Vomiting Genitourinary: Denies: Dysuria, Hematuria Endocrine: Denies: Heat/ Cold Intolerance, Polydipsia, Polyuria Hematologic/ Lymphatic: Denies: Easy Bruising, Easy Bleeding - Physical Exam Vital Signs Temp Pulse Resp BP 97.5 F L 91 16 145/86 H 04/08/20 08:28 04/08/20 08:28 04/08/20 08:28 04/08/20 08:28 General: Alert, Oriented x3, Cooperative, No apparent distress, Well developed, Well nourished HEENT: Atraumatic, PERRLA, EOMI, Normocephalic Oral: Moist Mucosa Neck: No JVD Lungs: Normal air movement Abdomen: Non-Distended Extremities: No clubbing, No cyanosis, No Calf Tenderness, - - Mild swelling and edema persist in the left lower extremity, though continuing to improve. Chronic skin changes are noted bilaterally, namely hyperpigmentation and lipodermatosclerosis in the gaiter areas. Scattered varicosities are also noted. The ulceration on the left lateral calf persists. There is a moderate amount of bioburden. The base of the wound is generally pink and healthy in appearance, and the wound appears to be reasonably well vascularized. There is no sign of infection or cellulitis. Dimensions are documented elsewhere. The undermined area superiorly appears to be diminishing in size. Skin: No rashes Wound Measurements and Assessment WC - Nurse 1 - General Ulcer Measurement Start: 04/08/20 08:27 Freq: Status: Active Protocol: Activity Type Activity Date Activity User E-Sign Co-Sign Detail Recorded Client Recorded Date Recorded By Document 04/08/20 08:28 MW [id number] 04/08/20 08:38 MW 04/08/20 08:28 Wound Center Nurse 1 [Ulcer Assessment] #1 Lateral LLE -Combined with other wound No -Current Size (cm) - Length 5.4 -Current Size (cm) - Width 4.5 -Current Size (cm) - Depth 0.4 -Total Square Cm 24.30 -Date of Last Picture (Recall this 04/08/20 field) -Photo Taken Yes -Epithelialization None Present -Tunneling Yes -Tunneling Position (O'clock) 12 -Tunneling Distance (cm) 1.5 -Undermining/Tunneling No -Circular Undermining No -Exudate Amt Medium -Exudate Type Serosanguineous -Wound Margin Distinct, Outline Attached -Granulation Amt Medium (34-66%) -Granulation Quality [place] -Slough/Fibrin Yes -Necrosis Amt Medium (34-66%) -Necrotic Tissue Type Adherent Slough -Structure Exposed N/A -Texture (Lois-wound Skin Appearance) Assessed, Localized Edema ,Scarring -Moisture (Lois-wound Skin Appearance No Abnormality, ) Assessed -Color (Lois-wound Skin Appearance) Assessed, Hemosiderin Staining -Temperature (Lois-wound Skin No Abnormality Appearance) (Pt Warm) -Tenderness on Palpation (Lois-wound Yes Skin Appearance) -Ulcer Cleansing soap and water -Foul Odor after Cleansing No -Anesthetic Used 4% Lidocaine Solution [Edema Assessment] -Lower Limb Edema Present Yes -Left Calf (cm) 45.4 -Left Ankle (cm) 28.0 WC - Nurse 2 - General Ulcer CM Notes Start: 04/08/20 08:27 Freq: Status: Active Protocol: Activity Type Activity Date Activity User E-Sign Co-Sign Detail Recorded Client Recorded Date Recorded By Document 04/08/20 08:44 DV [id number] 04/08/20 08:47 DV 04/08/20 08:44 Wound Center Nurse 2 [Procedure/Treatment] #1 Lateral LLE -Time 08:45 -Correct Patient Yes -Correct Side, Site, Position Yes -Correct Procedure Yes -Procedure Performed Yes -Type of Procedure Debridement -Clinical Debridement Subcutaneous -Post Debridement Size (cm) - Length 5.0 -Post Debridement Size (cm) - Width 4.8 -Post Debridement Size (cm) - Depth 1.0 -Total Square Cm 24.00 -Wound/Ulcer Outcome Not Healed -Ulcer Cleansing Rinsed/ Irrigated with Saline -Foul Odor after Cleansing No -Bioengineered Tissue No -Bleeding Controlled with Pressure -Offloading No -Treatment Response Procedure Tolerated Well [See Physician Procedure note for Specifics] Pain Scale: 0-10 Numeric [Pain] -Is Patient Pain Free? Yes Musculoskeletal: No Muscle Wasting Neurological: Cranial nerves II-XII grossly intact, Neuro grossly intact Psych/Mental Status: Normal Affect, Appropriate, Alert and oriented to time, place, person, mood and affect Debridement Note Post-Debridement Measurements/Treatment WC - Nurse 2 - General Ulcer CM Notes Start: 04/08/20 08:27 Freq: Status: Active Protocol: Activity Type Activity Date Activity User E-Sign Co-Sign Detail Recorded Client Recorded Date Recorded By Document 04/08/20 08:44 DV [id number] 04/08/20 08:47 DV 04/08/20 08:44 Wound Center Nurse 2 #1 Lateral LLE -Time 08:45 -Correct Patient Yes -Correct Side, Site, Position Yes -Correct Procedure Yes -Procedure Performed Yes -Type of Procedure Debridement -Clinical Debridement Subcutaneous -Post Debridement Size (cm) - Length 5.0 -Post Debridement Size (cm) - Width 4.8 -Post Debridement Size (cm) - Depth 1.0 -Total Square Cm 24.00 -Wound/Ulcer Outcome Not Healed -Ulcer Cleansing Rinsed/ Irrigated with Saline -Foul Odor after Cleansing No -Bioengineered Tissue No -Bleeding Controlled with Pressure -Offloading No -Treatment Response Procedure Tolerated Well Pain Scale: 0-10 Numeric Is Patient Pain Free? 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 He was hospitalized for approximately 5 days, and underwent incision and drainage of the abscess. He presented here for definitive management. At the time of his initial presentation, patient was noted to have a large amount of frankly necrotic and nonviable tissue present at the site of his former abscess, with some tunneling as well. The patient also suffers from longstanding swelling and edema of his lower extremities, and is known to have a history of superficial thrombophlebitis in the left lower extremity previously. Physical findings suggest longstanding chronic venous insufficiency. The patient has undergone a battery of diagnostic testing. An x-ray of the left tibia/fibula shows soft tissue changes, but no other abnormalities. Laboratory results from 03/20/2020 are as follows: White blood count 6.0, hemoglobin 14.4, hematocrit 44.7, platelets 247,000, sodium 137, potassium 4.1, chloride 104, BUN 20, creatinine 0.76, glucose 127, calcium 9.1, total bilirubin 0.60, AST 14, ALT 31, alkaline phosphatase 57, total protein 7.6, albumin 4.1, prealbumin 29.2. Recently, a noninvasive lower extremity arterial study revealed no evidence of significant arterial occlusive disease in the lower extremities. A venous duplex examination revealed incompetence of the great saphenous veins bilaterally. Plan: The patient has been advised to continue conservative treatment measures. These are to include leg elevation. He is to continue sleeping on a flat mattress at night. His legs are to be elevated to heart level, or higher, even during daytime hours. This is to be implemented as much as possible. The patient has been advised to refrain from prolonged, idle standing and sitting. Activity has been encouraged. Implementation of the calf and foot muscle pumps has been explained. Weight loss is also been recommended. We are to continue compression by means of SurePress wraps to both lower extremities. The bulk of the nonviable and necrotic tissue has been removed from the patient's wound by means of excisional and enzymatic debridements. We are to continue the use of collagenase Santyl topically, which will be applied on a daily basis. The patient has been instructed in the appropriate means of application. 1/4 inch Nu Gauze will be used to pack the area of tunneling on a daily basis. This tunneled/undermined area superiorly appears to be diminishing in size. The patient is to return in 1 week for reassessment. We will consider transitioning to the use of negative pressure wound therapy in the near future, perhaps next week, depending upon the patient's perceived progress at his next visit. Patient smokes rarely, but has been advised to refrain from his smoking habit. Influenza vaccine was not administered today. Patient stands 5 feet 10 inches tall. He weighs 246 pounds. His BMI is 35.3, which places him in a class II obesity category. Weight loss has been recommended, in collaboration with the patient's primary care physician has been advised.
[2020-04-11 14:16] VITALS: BP 145/86; PULSE 91; RESP 18; TEMP 36.6; BMI 35.3
--- NOTE | 2020-04-14 09:59 | WC ---
Spoke to the patient and he informed me that the suction canister was full. I informed the patient to remove the SnapVac and to apply a wet to dry dressing till his appointment on 04/15/20. I also asked the patient to bring in the canister to make sure he was seeing fluid in the chamber and that it had not gone red due to a leak, even though the patient stated he had tried to push the plunger down. Patient was agreeable to coming in twice a week if needed to address the drainage.
[2020-04-15 08:06] VITALS: BP 145/88; PULSE 93; RESP 18; TEMP 36.8; BMI 35.3
--- NOTE | 2020-04-15 08:58 | HP.PCM_ITS ---
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 Current Visit: Yes Code(s): I87.093 - Postthrombotic syndrome with other complications of bilateral lower extremity (7) Hyperpigmentation of skin Status: Chronic Current Visit: Yes Code(s): L81.9 - Disorder of pigmentation, unspecified (8) Lipodermatosclerosis of both lower extremities Status: Chronic Current Visit: Yes Code(s): I83.11 - Varicose veins of right lower extremity with inflammation; I83.12 - Varicose veins of left lower extremity with inflammation (9) Diallo phlebectatica Status: Chronic Current Visit: Yes (10) Wound of left leg Status: Chronic Current Visit: Yes Qualifiers: Encounter type: subsequent encounter Qualified Code(s): S81.802D - Unspecified open wound, left lower leg, subsequent encounter Code(s): S81.802A - Unspecified open wound, left lower leg, initial encounter (11) Necrosis Status: Chronic Current Visit: No Code(s): I96 - Gangrene, not elsewhere classified (12) Obesity (BMI 35.0-39.9 without comorbidity) Status: Chronic Current Visit: No Code(s): E66.9 - Obesity, unspecified (13) Personal history of thrombophlebitis Status: Chronic Current Visit: No Code(s): Z86.72 - Personal history of thrombophlebitis History of Present Illness Date of Service: 04/15/20 Chief Complaint: Open wound of the left lateral calf, status-post incision and drainage of abscess History of Wound: This is a 59-year-old male who was admitted to [facility] approximately 1 month ago with a large abscess on the left lateral calf. On February 11, 2020, he underwent incision and drainage of the abscess. He spent approximately 5 days in the hospital, and was subsequently discharged on Augmentin. The patient claims to sleep on a flat mattress at night. However, he suffers from chronic swelling and edema in both lower extremities. Additionally, he has a history of superficial thrombophlebitis in the left lower extremity, and has undergone a prior left lower extremity vein stripping procedure in the remote past. Patient has developed chronic skin changes in his lower extremities, which include hyperpigmentation and lipodermatosclerosis in the gaiter areas bilaterally. Patient is also noted to have diallo phlebectatica at ankle level bilaterally. The patient claims to be relatively active. Current management includes the use of a wet-to-dry gauze packing daily. It is noted that patient underwent a venous duplex examination during his hospitalization recently, that was negative for any evidence of thrombosis, but indicated valvular incompetence of the deep and superficial venous systems bilaterally. 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 Home Medications: Ambulatory Orders Medication Instructions Recorded Augmentin 875-125 Tablet 875 mg PO BID 03/18/20 Rosuvastatin Calcium [Crestor] 20 mg PO DAILY 03/18/20 - Family History Paternal - - Patient's father at the age of 72 with a history of cerebrovascular accident and venous disease. Patient's mother at the age of 90, of old age. Smoking Status: Light Smoker (<10/day) Tobacco Use: Cigarettes Review of Systems Constitutional: Denies: Chills, Fever, Weight Change Eyes: Denies: Pain, Vision Change HEENT: Denies: Difficulty Hearing, Difficulty Swallowing, Sinus Congestion Cardiovascular: Denies: Chest Pain, Palpitations Respiratory: Denies: Cough, Shortness of Breath Gastrointestinal: Denies: Diarrhea, Nausea, Vomiting Genitourinary: Denies: Dysuria, Hematuria Endocrine: Denies: Heat/ Cold Intolerance, Polydipsia, Polyuria Hematologic/ Lymphatic: Denies: Easy Bruising, Easy Bleeding - Physical Exam Vital Signs Temp Pulse Resp BP 98.2 F 93 18 145/88 H 04/15/20 08:06 04/15/20 08:06 04/15/20 08:06 04/15/20 08:06 General: Alert, Oriented x3, Cooperative, No apparent distress, Well developed, Well nourished HEENT: Atraumatic, PERRLA, EOMI, Normocephalic Oral: Moist Mucosa Neck: No JVD Lungs: Normal air movement Abdomen: Non-Distended Extremities: No clubbing, No cyanosis, No Calf Tenderness, - - Mild swelling and edema persists in the left lower extremity. The wound on the left lateral calf persists. There is no sign of infection or cellulitis. Dimensions are documented elsewhere. The base of the wound is generally pink and healthy in appearance, with a moderate amount of bioburden. There is a slight amount of undermining posteriorly and superiorly. Once again, chronic changes are noted in the left lower extremity, namely lipodermatosclerosis and hyperpigmentation. Skin: No rashes Wound Measurements and Assessment WC - Nurse 1 - General Ulcer Measurement Start: 04/08/20 08:27 Freq: Status: Active Protocol: Activity Type Activity Date Activity User E-Sign Co-Sign Detail Recorded Client Recorded Date Recorded By Document 04/15/20 08:06 [place] [id number] 04/15/20 08:20 [place] 04/15/20 08:06 Wound Center Nurse 1 [Ulcer Assessment] #1 Lateral LLE -Combined with other wound No -Current Size (cm) - Length 5.0 -Current Size (cm) - Width 4.4 -Current Size (cm) - Depth 0.7 -Total Square Cm 22.00 -Tunneling Yes -Tunneling Position (O'clock) 1 -Tunneling Distance (cm) 1.0 -Exudate Amt Large -Exudate Type Serosanguineous -Granulation Amt Large (67-100%) -Granulation Quality [place],Red -Slough/Fibrin Yes -Necrosis Amt Small (1-33%) -Necrotic Tissue Type Adherent Slough -Texture (Lois-wound Skin Appearance) No Abnormality -Moisture (Lois-wound Skin Appearance No Abnormality ) -Color (Lois-wound Skin Appearance) No Abnormality -Temperature (Lois-wound Skin No Abnormality Appearance) (Pt Warm) -Ulcer Cleansing Rinsed/ Irrigated with Saline -Foul Odor after Cleansing No -Anesthetic Used 4% Lidocaine Solution [Edema Assessment] -Left Calf (cm) 44.5 -Point of measurement (cm from the 34 medial instep) -Left Ankle (cm) 28.5 -Point of Measurement (cm from the 16 medial instep) WC - Nurse 2 - General Ulcer CM Notes Start: 04/08/20 08:27 Freq: Status: Active Protocol: Activity Type Activity Date Activity User E-Sign Co-Sign Detail Recorded Client Recorded Date Recorded By Document 04/15/20 08:55 DV [id number] 04/15/20 08:58 DV 04/15/20 08:55 Wound Center Nurse 2 [Procedure/Treatment] #1 Lateral LLE -Time 08:56 -Correct Patient Yes -Correct Side, Site, Position Yes -Correct Procedure Yes -Procedure Performed Yes -Type of Procedure Debridement -Clinical Debridement Subcutaneous -Post Debridement Size (cm) - Length 4.6 -Post Debridement Size (cm) - Width 4.0 -Post Debridement Size (cm) - Depth 0.4 -Total Square Cm 18.40 -Wound/Ulcer Outcome Not Healed -Ulcer Cleansing Rinsed/ Irrigated with Saline -Foul Odor after Cleansing No -Bioengineered Tissue No -Bleeding Controlled with Pressure -Offloading No -Treatment Response Procedure Tolerated Well [See Physician Procedure note for Specifics] Pain Scale: 0-10 Numeric [Pain] -Is Patient Pain Free? Yes Musculoskeletal: No Muscle Wasting Neurological: Cranial nerves II-XII grossly intact, Neuro grossly intact Psych/Mental Status: Normal Affect, Appropriate, Alert and oriented to time, place, person, mood and affect Debridement Note Post-Debridement Measurements/Treatment WC - Nurse 2 - General Ulcer CM Notes Start: 04/08/20 08:27 Freq: Status: Active Protocol: Activity Type Activity Date Activity User E-Sign Co-Sign Detail Recorded Client Recorded Date Recorded By Document 04/08/20 08:44 DV [id number] 04/08/20 08:47 DV Document 04/15/20 08:55 DV [id number] 04/15/20 08:58 DV 04/08/20 04/15/20 08:44 08:55 Wound Center Nurse 2 #1 Lateral LLE -Time 08:45 08:56 -Correct Patient Yes Yes -Correct Side, Site, Position Yes Yes -Correct Procedure Yes Yes -Procedure Performed Yes Yes -Type of Procedure Debridement Debridement -Clinical Debridement Subcutaneous Subcutaneous -Post Debridement Size (cm) - Length 5.0 4.6 -Post Debridement Size (cm) - Width 4.8 4.0 -Post Debridement Size (cm) - Depth 1.0 0.4 -Total Square Cm 24.00 18.40 -Wound/Ulcer Outcome Not Healed Not Healed -Ulcer Cleansing Rinsed/ Rinsed/ Irrigated with Irrigated with Saline Saline -Foul Odor after Cleansing No No -Bioengineered Tissue No No -Bleeding Controlled with Pressure Pressure -Offloading No No -Treatment Response Procedure Procedure Tolerated Well Tolerated Well Pain Scale: 0-10 Numeric Is Patient Pain Free? Yes Yes Laterality: Left - Lateral calf Type of Debridement: Excisional debridement Anesthesia Used: 5% Lidocaine Gel Depth: Down to and including healthy tissue, in the subcutaneous layer Percentage of wound debrided: 100 Instrument Used: 5mm curette Tissue Removed: Bioburden and nonviable tissue Severity: Fat Layer Exposed Amount of bleeding with debridement: Mild Bleeding Controlled with: Compression and gauze Patient tolerated procedure well Assessment/Plan Active Problems Leg swelling (Chronic) Leg edema (Chronic) Abscess of left leg (Chronic) Surgical wound present (Chronic) Chronic venous insufficiency (Chronic) 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 He was hospitalized for approximately 5 days, and underwent incision and drainage of the abscess. He presented here for definitive management. At the time of his initial presentation, patient was noted to have a large amount of frankly necrotic and nonviable tissue present at the site of his former abscess, with some tunneling as well. The patient also suffers from longstanding swelling and edema of his lower extremities, and is known to have a history of superficial thrombophlebitis in the left lower extremity previously. Physical findings suggest longstanding chronic venous insufficiency. The patient has undergone a battery of diagnostic testing. An x-ray of the left tibia/fibula shows soft tissue changes, but no other abnormalities. Laboratory results from 03/20/2020 are as follows: White blood count 6.0, hemoglobin 14.4, hematocrit 44.7, platelets 247,000, sodium 137, potassium 4.1, chloride 104, BUN 20, creatinine 0.76, glucose 127, calcium 9.1, total bilirubin 0.60, AST 14, ALT 31, alkaline phosphatase 57, total protein 7.6, albumin 4.1, prealbumin 29.2. Recently, a noninvasive lower extremity a rterial study revealed no evidence of significant arterial occlusive disease in the lower extremities. A venous duplex examination revealed incompetence of the great saphenous veins bilaterally. Plan: The patient has been advised to continue conservative treatment measures. These are to include leg elevation. He is to continue sleeping on a flat mattress at night. His legs are to be elevated to heart level, or higher, even during daytime hours. This is to be implemented as much as possible. The patient has been advised to refrain from prolonged, idle standing and sitting. Activity has been encouraged. Implementation of the calf and foot muscle pumps has been explained. Weight loss is also been recommended. We are to continue compression by means of SurePress wraps to both lower extremities. The bulk of the nonviable and necrotic tissue has been removed from the patient's wound by means of excisional and enzymatic debridements. We have initiated the use of a wound VAC, which the patient appears to be tolerating well in the short time that it has been implemented. We are to continue the use of the wound VAC. We are to arrange for twice weekly visits for the wound VAC change. The patient is to return in 1 week for reassessment. Patient smokes rarely, but has been advised to refrain from his smoking habit. Influenza vaccine was not administer ed today. Patient stands 5 feet 10 inches tall. He weighs 246 pounds. His BMI is 35.3, which places him in a class II obesity category. Weight loss has been recommended, in collaboration with the patient's primary care physician has been advised.
[2020-04-18 08:02] VITALS: BP 154/84; PULSE 104; RESP 16; TEMP 36.9; BMI 35.3
[2020-04-22 08:02] VITALS: BP 128/86; PULSE 103; RESP 18; TEMP 36.2; BMI 35.3
[2020-04-22 08:13] VITALS: BMI 35.3
--- NOTE | 2020-04-22 09:00 | HP.PCM_ITS ---
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 Current Visit: Yes Code(s): I87.093 - Postthrombotic syndrome with other complications of bilateral lower extremity (7) Hyperpigmentation of skin Status: Chronic Current Visit: Yes Code(s): L81.9 - Disorder of pigmentation, unspecified (8) Lipodermatosclerosis of both lower extremities Status: Chronic Current Visit: Yes Code(s): I83.11 - Varicose veins of right lower extremity with inflammation; I83.12 - Varicose veins of left lower extremity with inflammation (9) Diallo phlebectatica Status: Chronic Current Visit: Yes (10) Wound of left leg Status: Chronic Current Visit: Yes Qualifiers: Encounter type: subsequent encounter Qualified Code(s): S81.802D - Unspecified open wound, left lower leg, subsequent encounter Code(s): S81.802A - Unspecified open wound, left lower leg, initial encounter (11) Necrosis Status: Chronic Current Visit: No Code(s): I96 - Gangrene, not elsewhere classified (12) Obesity (BMI 35.0-39.9 without comorbidity) Status: Chronic Current Visit: No Code(s): E66.9 - Obesity, unspecified (13) Personal history of thrombophlebitis Status: Chronic Current Visit: No Code(s): Z86.72 - Personal history of thrombophlebitis History of Present Illness Date of Service: 04/22/20 Chief Complaint: Open wound of the left lateral calf, status-post incision and drainage of abscess History of Wound: This is a 59-year-old male who was admitted to [facility] approximately 1 month ago with a large abscess on the left lateral calf. On February 11, 2020, he underwent incision and drainage of the abscess. He spent approximately 5 days in the hospital, and was subsequently discharged on Augmentin. The patient claims to sleep on a flat mattress at night. However, he suffers from chronic swelling and edema in both lower extremities. Additionally, he has a history of superficial thrombophlebitis in the left lower extremity, and has undergone a prior left lower extremity vein stripping procedure in the remote past. Patient has developed chronic skin changes in his lower extremities, which include hyperpigmentation and lipodermatosclerosis in the gaiter areas bilaterally. Patient is also noted to have diallo phlebectatica at ankle level bilaterally. The patient claims to be relatively active. Current management includes the use of a wet-to-dry gauze packing daily. It is noted that patient underwent a venous duplex examination during his hospitalization recently, that was negative for any evidence of thrombosis, but indicated valvular incompetence of the deep and superficial venous systems bilaterally. 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 Home Medications: Ambulatory Orders Medication Instructions Recorded Augmentin 875-125 Tablet 875 mg PO BID 03/18/20 Rosuvastatin Calcium [Crestor] 20 mg PO DAILY 03/18/20 - Family History Paternal - - Patient's father at the age of 72 with a history of cerebrovascular accident and venous disease. Patient's mother at the age of 90, of old age. Smoking Status: Light Smoker (<10/day) Tobacco Use: Cigarettes Review of Systems Constitutional: Denies: Chills, Fever, Weight Change Eyes: Denies: Pain, Vision Change HEENT: Denies: Difficulty Hearing, Difficulty Swallowing, Sinus Congestion Cardiovascular: Denies: Chest Pain, Palpitations Respiratory: Denies: Cough, Shortness of Breath Gastrointestinal: Denies: Diarrhea, Nausea, Vomiting Genitourinary: Denies: Dysuria, Hematuria Endocrine: Denies: Heat/ Cold Intolerance, Polydipsia, Polyuria Hematologic/ Lymphatic: Denies: Easy Bruising, Easy Bleeding - Physical Exam Vital Signs Temp Pulse Resp BP 97.2 F L 103 H 18 128/86 H 04/22/20 08:02 04/22/20 08:02 04/22/20 08:02 04/22/20 08:02 General: Alert, Oriented x3, Cooperative, No apparent distress, Well developed, Well nourished HEENT: Atraumatic, PERRLA, EOMI, Normocephalic Oral: Moist Mucosa Neck: No JVD Lungs: Normal air movement Abdomen: Non-Distended Extremities: No clubbing, No cyanosis, No edema, No Calf Tenderness, - - The wound on the left lateral calf persists. It appears to be improving. It is slightly smaller in size. There is a small amount of bioburden. In general, however, there appears to be active granulation tissue, and evidence of ongoing healing. There remains a small amount of undermining, particularly posteriorly and superiorly. There is odor from the drainage contained within the wound VAC, but only minor odor emanating from the wound itself. There is no sign of infection or cellulitis. Dimensions are documented elsewhere. Skin: No rashes Wound Measurements and Assessment WC - Nurse 1 - General Ulcer Measurement Start: 04/08/20 08:27 Freq: Status: Active Protocol: Activity Type Activity Date Activity User E-Sign Co-Sign Detail Recorded Client Recorded Date Recorded By Document 04/22/20 08:02 PL [id number] 04/22/20 08:10 PL Document 04/22/20 08:13 PL [id number] 04/22/20 08:14 PL 04/22/20 04/22/20 08:02 08:13 Wound Center Nurse 1 [Ulcer Assessment] #1 Lateral LLE -Combined with other wound No -Current Size (cm) - Length 4.5 -Current Size (cm) - Width 4.0 -Current Size (cm) - Depth 0.7 -Total Square Cm 18.00 -Undermining/Tunneling Yes -Undermining/Tunneling Starts (O' 12 clock) -Undermining/Tunneling Ends (O'clock) 1 -Maximum Distance (cm) 0.7 -Undermining/Tunneling Starts #2 (O' 2 clock) -Undermining/Tunneling Ends #2 (O' 3 clock) -Maximum Distance #2 (cm) 0.7 -Exudate Amt Large -Exudate Type Yellow/Green -Wound Margin Thickened & Rolled Under -Granulation Amt Large (67-100%) -Granulation Quality [place],Red -Slough/Fibrin Yes -Necrosis Amt Small (1-33%) -Necrotic Tissue Type Adherent Slough -Texture (Lois-wound Skin Appearance) No Abnormality -Moisture (Lois-wound Skin Appearance No Abnormality ) -Color (Lois-wound Skin Appearance) No Abnormality -Temperature (Lois-wound Skin No Abnormality Appearance) (Pt Warm) -Ulcer Cleansing Rinsed/ Irrigated with Saline -Foul Odor after Cleansing No -Anesthetic Used 4% Lidocaine Solution [Edema Assessment] -Left Calf (cm) 41 -Point of measurement (cm from the 33 medial instep) -Left Ankle (cm) 30 -Point of Measurement (cm from the 14 medial instep) WC - Nurse 2 - General Ulcer CM Notes Start: 04/08/20 08:27 Freq: Status: Active Protocol: Activity Type Activity Date Activity User E-Sign Co-Sign Detail Recorded Client Recorded Date Recorded By Document 04/22/20 08:45 DV [id number] 04/22/20 08:48 DV 04/22/20 08:45 Wound Center Nurse 2 [Procedure/Treatment] #1 Lateral LLE -Time 08:46 -Correct Patient Yes -Correct Side, Site, Position Yes -Correct Procedure Yes -Procedure Performed Yes -Type of Procedure Debridement -Clinical Debridement Subcutaneous -Post Debridement Size (cm) - Length 5.0 -Post Debridement Size (cm) - Width 4.7 -Post Debridement Size (cm) - Depth 0.3 -Total Square Cm 23.50 -Wound/Ulcer Outcome Not Healed -Ulcer Cleansing Rinsed/ Irrigated with Saline -Foul Odor after Cleansing No -Bioengineered Tissue No -Bleeding Controlled with Pressure -Offloading No -Treatment Response Procedure Tolerated Well [See Physician Procedure note for Specifics] Pain Scale: 0-10 Numeric [Pain] -Is Patient Pain Free? Yes Musculoskeletal: No Muscle Wasting Neurological: Cranial nerves II-XII grossly intact, Neuro grossly intact Psych/Mental Status: Normal Affect, Appropriate, Alert and oriented to time, place, person, mood and affect Debridement Note Post-Debridement Measurements/Treatment WC - Nurse 2 - General Ulcer CM Notes Start: 04/08/20 08:27 Freq: Status: Active Protocol: Activity Type Activity Date Activity User E-Sign Co-Sign Detail Recorded Client Recorded Date Recorded By Document 04/08/20 08:44 DV [id number] 04/08/20 08:47 DV Document 04/15/20 08:55 DV [id number] 04/15/20 08:58 DV Document 04/22/20 08:45 DV [id number] 04/22/20 08:48 DV 04/08/20 04/15/20 04/22/20 08:44 08:55 08:45 Wound Center Nurse 2 #1 Lateral LLE -Time 08:45 08:56 08:46 -Correct Patient Yes Yes Yes -Correct Side, Site, Position Yes Yes Yes -Correct Procedure Yes Yes Yes -Procedure Performed Yes Yes Yes -Type of Procedure Debridement Debridement Debridement -Clinical Debridement Subcutaneous Subcutaneous Subcutaneous -Post Debridement Size (cm) - Length 5.0 4.6 5.0 -Post Debridement Size (cm) - Width 4.8 4.0 4.7 -Post Debridement Size (cm) - Depth 1.0 0.4 0.3 -Total Square Cm 24.00 18.40 23.50 -Wound/Ulcer Outcome Not Healed Not Healed Not Healed -Ulcer Cleansing Rinsed/ Rinsed/ Rinsed/ Irrigated with Irrigated with Irrigated with Saline Saline Saline -Foul Odor after Cleansing No No No -Bioengineered Tissue No No No -Bleeding Controlled with Pressure Pressure Pressure -Offloading No No No -Treatment Response Procedure Procedure Procedure Tolerated Well Tolerated Well Tolerated Well Pain Scale: 0-10 Numeric Is Patient Pain Free? Yes Yes Yes Laterality: Left - Lateral calf Type of Debridement: Excisional debridement Anesthesia Used: 5% Lidocaine Gel Depth: Down to and including healthy tissue, in the subcutaneous layer Percentage of wound debrided: 100 Instrument Used: 5mm curette Tissue Removed: Bioburden and nonviable tissue Severity: Fat Layer Exposed Amount of bleeding with debridement: Mild Bleeding Controlled with: Compression and gauze Patient tolerated procedure well Assessment/Plan Active Problems Leg swelling (Chronic) Leg edema (Chronic) Abscess of left leg (Chronic) Surgical wound present (Chronic) Chronic venous insufficiency (Chronic) 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 He was hospitalized for approximately 5 days, and underwent incision and drainage of the abscess. He presented here for definitive management. At the time of his initial presentation, patient was noted to have a large amount of frankly necrotic and nonviable tissue present at the site of his former abscess, with some tunneling as well. The patient also suffers from longstanding swelling and edema of his lower extremities, and is known to have a history of superficial thrombophlebitis in the left lower extremity previously. Physical findings suggest longstanding chronic venous insufficiency. The patient has undergone a battery of diagnostic testing. An x-ray of the left tibia/fibula shows soft tissue changes, but no other abnormalities. Laboratory results from 03/20/2020 are as follows: White blood count 6.0, hemoglobin 14.4, hematocrit 44.7, platelets 247,000, sodium 137, potassium 4.1, chloride 104, BUN 20, creatinine 0.76, glucose 127, calcium 9.1, total bilirubin 0.60, AST 14, ALT 31, alkaline phosphatase 57, total protein 7.6, albumin 4.1, prealbumin 29.2. Recently, a noninvasive lower extremity arterial study revealed no evidence of significant arterial occlusive disease in the lower extremities. A venous duplex examination revealed incompetence of the great saphenous veins bilaterally. Plan: The patient has been advised to continue conservative treatment measures. These are to include leg elevation. He is to continue sleeping on a flat mattress at night. His legs are to be elevated to heart level, or higher, even during daytime hours. This is to be implemented as much as possible. The patient has been advised to refrain from prolonged, idle standing and sitting. Activity has been encouraged. Implementation of the calf and foot muscle pumps has been explained. Weight loss is also been recommended. We are to continue compression by means of SurePress wraps to both lower extremities. The bulk of the nonviable and necrotic tissue has been removed from the patient's wound by means of excisional and enzymatic debridements. We have initiated the use of a wound VAC, which the patient appears to be tolerating well in the short time that it has been implemented. We are to continue the use of the wound VAC. The patient is to return in 1 week for reassessment. Patient smokes rarely, but has been advised to refrain from his smoking habit. Influenza vaccine was not administered today. Patient stands 5 feet 10 inches tall. He weighs 246 pounds. His BMI is 35.3, which places him in a class II obesity category. Weight loss has been recommended, in collaboration with the patient's primary care physician has been advised.
[2020-04-29 08:03] VITALS: BP 147/83; PULSE 92; RESP 16; TEMP 36.3; BMI 35.3
--- NOTE | 2020-04-29 08:33 | HP.PCM_ITS ---
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 Current Visit: Yes Code(s): I87.093 - Postthrombotic syndrome with other complications of bilateral lower extremity (7) Hyperpigmentation of skin Status: Chronic Current Visit: Yes Code(s): L81.9 - Disorder of pigmentation, unspecified (8) Lipodermatosclerosis of both lower extremities Status: Chronic Current Visit: Yes Code(s): I83.11 - Varicose veins of right lower extremity with inflammation; I83.12 - Varicose veins of left lower extremity with inflammation (9) Diallo phlebectatica Status: Chronic Current Visit: Yes (10) Wound of left leg Status: Chronic Current Visit: Yes Qualifiers: Encounter type: subsequent encounter Qualified Code(s): S81.802D - Unspecified open wound, left lower leg, subsequent encounter Code(s): S81.802A - Unspecified open wound, left lower leg, initial encounter (11) Necrosis Status: Chronic Current Visit: No Code(s): I96 - Gangrene, not elsewhere classified (12) Obesity (BMI 35.0-39.9 without comorbidity) Status: Chronic Current Visit: No Code(s): E66.9 - Obesity, unspecified (13) Personal history of thrombophlebitis Status: Chronic Current Visit: No Code(s): Z86.72 - Personal history of thrombophlebitis History of Present Illness Date of Service: 04/29/20 Chief Complaint: Open wound of the left lateral calf, status-post incision and drainage of abscess History of Wound: This is a 59-year-old male who was admitted to [facility] approximately 1 month ago with a large abscess on the left lateral calf. On February 11, 2020, he underwent incision and drainage of the abscess. He spent approximately 5 days in the hospital, and was subsequently discharged on Augmentin. The patient claims to sleep on a flat mattress at night. However, he suffers from chronic swelling and edema in both lower extremities. Additionally, he has a history of superficial thrombophlebitis in the left lower extremity, and has undergone a prior left lower extremity vein stripping procedure in the remote past. Patient has developed chronic skin changes in his lower extremities, which include hyperpigmentation and lipodermatosclerosis in the gaiter areas bilaterally. Patient is also noted to have diallo phlebectatica at ankle level bilaterally. The patient claims to be relatively active. Current management includes the use of a wet-to-dry gauze packing daily. It is noted that patient underwent a venous duplex examination during his hospitalization recently, that was negative for any evidence of thrombosis, but indicated valvular incompetence of the deep and superficial venous systems bilaterally. 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 Home Medications: Ambulatory Orders Medication Instructions Recorded Augmentin 875-125 Tablet 875 mg PO BID 03/18/20 Rosuvastatin Calcium [Crestor] 20 mg PO DAILY 03/18/20 - Family History Paternal - - Patient's father at the age of 72 with a history of cerebrovascular accident and venous disease. Patient's mother at the age of 90, of old age. Smoking Status: Light Smoker (<10/day) Tobacco Use: Cigarettes Review of Systems Constitutional: Denies: Chills, Fever, Weight Change Eyes: Denies: Pain, Vision Change HEENT: Denies: Difficulty Hearing, Difficulty Swallowing, Sinus Congestion Cardiovascular: Denies: Chest Pain, Palpitations Respiratory: Denies: Cough, Shortness of Breath Gastrointestinal: Denies: Diarrhea, Nausea, Vomiting Genitourinary: Denies: Dysuria, Hematuria Endocrine: Denies: Heat/ Cold Intolerance, Polydipsia, Polyuria Hematologic/ Lymphatic: Denies: Easy Bruising, Easy Bleeding - Physical Exam Vital Signs Temp Pulse Resp BP 97.4 F L 92 16 147/83 H 04/29/20 08:03 04/29/20 08:03 04/29/20 08:03 04/29/20 08:03 General: Alert, Oriented x3, Cooperative, No apparent distress, Well developed, Well nourished HEENT: Atraumatic, PERRLA, EOMI, Normocephalic Oral: Moist Mucosa Neck: No JVD Lungs: Normal air movement Abdomen: Non-Distended Extremities: No clubbing, No cyanosis, No Calf Tenderness, - - Slight swelling and edema is noted in the lower extremities bilaterally. There are also chronic skin changes, mainly hyperpigmentation and mild lipodermatosclerosis in the gaiter areas. The wound on the left lateral calf persists, but appears significantly improved. There is less depth. There is evidence of progressive healing. The base of the wound is generally pink and healthy in appearance, with active granulation tissue. Undermining persists posteriorly. There is no sign of infection or cellulitis. There is a mild amount of bioburden. Wound dimensions are documented elsewhere. Skin: No rashes Wound Measurements and Assessment WC - Nurse 1 - General Ulcer Measurement Start: 04/08/20 08:27 Freq: Status: Active Protocol: Activity Type Activity Date Activity User E-Sign Co-Sign Detail Recorded Client Recorded Date Recorded By Document 04/29/20 08:03 [facility] [id number] 04/29/20 08:15 [facility] 04/29/20 08:03 Wound Center Nurse 1 [Ulcer Assessment] #1 Lateral LLE -Combined with other wound No -Current Size (cm) - Length 4.5 -Current Size (cm) - Width 4.1 -Current Size (cm) - Depth 0.8 -Total Square Cm 18.45 -Photo Taken No -Epithelialization None Present -Tunneling No -Undermining/Tunneling Yes -Undermining/Tunneling Starts (O' 2 clock) -Undermining/Tunneling Ends (O'clock) 4 -Maximum Distance (cm) 2.1 -Circular Undermining No -Exudate Amt Large -Exudate Type Serosanguineous -Wound Margin Thickened & Rolled Under -Granulation Amt Large (67-100%) -Granulation Quality Red -Slough/Fibrin Yes -Necrosis Amt Small (1-33%) -Necrotic Tissue Type Adherent Slough -Texture (Lios-wound Skin Appearance) Assessed, Scarring -Moisture (Lois-wound Skin Appearance Assessed,Dry/ ) Scaly -Color (Lois-wound Skin Appearance) Assessed -Temperature (Lois-wound Skin No Abnormality Appearance) (Pt Warm) -Tenderness on Palpation (Lois-wound No Skin Appearance) -Ulcer Cleansing soapy water -Foul Odor after Cleansing Yes -Anesthetic Used 4% Lidocaine Solution [Edema Assessment] -Lower Limb Edema Present Yes -Left Calf (cm) 44.2 -Left Ankle (cm) 26.6 WC - Nurse 2 - General Ulcer CM Notes Start: 04/08/20 08:27 Freq: Status: Active Protocol: Activity Type Activity Date Activity User E-Sign Co-Sign Detail Recorded Client Recorded Date Recorded By Document 04/29/20 08:27 DV [id number] 04/29/20 08:30 DV 04/29/20 08:27 Wound Center Nurse 2 [Procedure/Treatment] #1 Lateral LLE -Time 08:28 -Correct Patient Yes -Correct Side, Site, Position Yes -Correct Procedure Yes -Procedure Performed Yes -Type of Procedure Debridement -Clinical Debridement Subcutaneous -Post Debridement Size (cm) - Length 5.0 -Post Debridement Size (cm) - Width 4.2 -Post Debridement Size (cm) - Depth 1.5 -Total Square (cm) 21.00 -Wound/Ulcer Outcome Not Healed -Ulcer Cleansing Rinsed/ Irrigated with Saline -Foul Odor after Cleansing No -Bioengineered Tissue No -Bleeding Controlled with Pressure -Offloading No -Treatment Response Procedure Tolerated Well [See Physician Procedure note for Specifics] Pain Scale: 0-10 Numeric [Pain] -Is Patient Pain Free? Yes Musculoskeletal: No Muscle Wasting Neurological: Cranial nerves II-XII grossly intact, Neuro grossly intact Psych/Mental Status: Normal Affect, Appropriate, Alert and oriented to time, place, person, mood and affect Debridement Note Post-Debridement Measurements/Treatment - Nurse 2 - General Ulcer CM Notes Start: 04/08/20 08:27 Freq: Status: Active Protocol: Activity Type Activity Date Activity User E-Sign Co-Sign Detail Recorded Client Recorded Date Recorded By Document 04/08/20 08:44 DV [id number] 04/08/20 08:47 DV Document 04/15/20 08:55 DV [id number] 04/15/20 08:58 DV Document 04/22/20 08:45 DV [id number] 04/22/20 08:48 DV Document 04/29/20 08:27 DV [id number] 04/29/20 08:30 DV 04/08/20 04/15/20 04/22/20 08:44 08:55 08:45 Wound Center Nurse 2 #1 Lateral LLE -Time 08:45 08:56 08:46 -Correct Patient Yes Yes Yes -Correct Side, Site, Position Yes Yes Yes -Correct Procedure Yes Yes Yes -Procedure Performed Yes Yes Yes -Type of Procedure Debridement Debridement Debridement -Clinical Debridement Subcutaneous Subcutaneous Subcutaneous -Post Debridement Size (cm) - Length 5.0 4.6 5.0 -Post Debridement Size (cm) - Width 4.8 4.0 4.7 -Post Debridement Size (cm) - Depth 1.0 0.4 0.3 -Total Square (cm) 24.00 18.40 23.50 -Wound/Ulcer Outcome Not Healed Not Healed Not Healed -Ulcer Cleansing Rinsed/ Rinsed/ Rinsed/ Irrigated with Irrigated with Irrigated with Saline Saline Saline -Foul Odor after Cleansing No No No -Bioengineered Tissue No No No -Bleeding Controlled with Pressure Pressure Pressure -Offloading No No No -Treatment Response Procedure Procedure Procedure Tolerated Well Tolerated Well Tolerated Well Pain Scale: 0-10 Numeric Is Patient Pain Free? Yes Yes Yes 04/29/20 08:27 Wound Center Nurse 2 #1 Lateral LLE -Time 08:28 -Correct Patient Yes -Correct Side, Site, Position Yes -Correct Procedure Yes -Procedure Performed Yes -Type of Procedure Debridement -Clinical Debridement Subcutaneous -Post Debridement Size (cm) - Length 5.0 -Post Debridement Size (cm) - Width 4.2 -Post Debridement Size (cm) - Depth 1.5 -Total Square (cm) 21.00 -Wound/Ulcer Outcome Not Healed -Ulcer Cleansing Rinsed/ Irrigated with Saline -Foul Odor after Cleansing No -Bioengineered Tissue No -Bleeding Controlled with Pressure -Offloading No -Treatment Response Procedure Tolerated Well Pain Scale: 0-10 Numeric Is Patient Pain Free? Yes Laterality: Left - Lateral calf Type of Debridement: Excisional debridement Anesthesia Used: 5% Lidocaine Gel Depth: Down to and including healthy tissue, in the subcutaneous layer Percentage of wound debrided: 100 Instrument Used: 5mm curette Tissue Removed: Bioburden Severity: Fat Layer Exposed Amount of bleeding with debridement: Mild Bleeding Controlled with: Compression and gauze Patient tolerated procedure well Assessment/Plan Active Problems Leg swelling (Chronic) Leg edema (Chronic) Abscess of left leg (Chronic) Surgical wound present (Chronic) Chronic venous insufficiency (Chronic) 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 He was hospitalized for approximately 5 days, and underwent incision and drainage of the abscess. He presented here for definitive management. At the time of his initial presentation, patient was noted to have a large amount of frankly necrotic and nonviable tissue present at the site of his former abscess, with some tunneling as well. The patient also suffers from longstanding swelling and edema of his lower extremities, and is known to have a history of superficial thrombophlebitis in the left lower extremity previously. Physical findings suggest longstanding chronic venous insufficiency. The patient has undergone a battery of diagnostic testing. An x-ray of the left tibia/fibula shows soft tissue changes, but no other abnormalities. Laboratory results from 03/20/2020 are as follows: White blood count 6.0, hemoglobin 14.4, hematocrit 44.7, platelets 247,000, sodium 137, potassium 4.1, chloride 104, BUN 20, creatinine 0.76, glucose 127, calcium 9.1, total bilirubin 0.60, AST 14, ALT 31, alkaline phosphatase 57, total protein 7.6, albumin 4.1, prealbumin 29.2. Recently, a noninvasive lower extremity arterial study revealed no evidence of significant arterial occlusive disease in the lower extremities. A venous duplex examination revealed incompetence of the great saphenous veins bilaterally. At this juncture, the patient appears to be progressing well, with a progressive decrease in the size and depth of his wound. Undermining posteriorly persists, and may be problematic in terms of ultimate wound healing. Plan: The patient has been advised to continue conservative treatment measures. These are to include leg elevation. He is to continue sleeping on a flat mattress at night. His legs are to be elevated to heart level, or higher, even during daytime hours. This is to be implemented as much as possible. The patient has been advised to refrain from prolonged, idle standing and sitting. Activity has been encouraged. Implementation of the calf and foot muscle pumps has been explained. Weight loss is also been recommended. We are to continue compression by means of SurePress wraps to both lower extremities. The bulk of the nonviable and necrotic tissue has been removed from the patient's wound by means of excisional and enzymatic debridements. We have initiated the use of a wound VAC, which the patient appears to be tolerating well. We are to continue the use of the wound VAC. The patient is unable to appear next week for his routine visit, as he will shortly be returning to his employment. Therefore, a nurse visit will be scheduled for 1 week from today. The patient will return for his routine physician assessment in 2 weeks. 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 Once again, we have reinforced the need for compression, elevation, avoidance of prolonged, idle sitting, etc. Patient smokes rarely, but has been advised to refrain from his smoking habit. Influenza vaccine was not administered today. Patient stands 5 feet 10 inches tall. He weighs 246 pounds. His BMI is 35.3, which places him in a class II obesity category. Weight loss has been recommended, in collaboration with the patient's primary care physician has been advised.
== END 2020-05-02 23:59 ==
LOC: WC 08:00
PROVIDERS: PCP Family Medicine; Referring Provider Surgery; Visit Provider Surgery
DX: M79.89 Other specified soft tissue disorders (principal); R60.0 Localized edema; L02.416 Cutaneous abscess of left lower limb; I87.093 Postthrombotic syndrome with other complications of bilateral lower extremity; L81.9 Disorder of pigmentation, unspecified; I83.11 Varicose veins of right lower extremity with inflammation; I83.12 Varicose veins of left lower extremity with inflammation; S81.802D Unspecified open wound, left lower leg, subsequent encounter; E66.9 Obesity, unspecified; Z86.72 Personal history of thrombophlebitis; Z68.35 Body mass index [BMI] 35.0-35.9, adult; F17.210 Nicotine dependence, cigarettes, uncomplicated; Z98.890 Other specified postprocedural states
CPT/HCPCS: 11042; 11045; 97605; 97607

== ENCOUNTER 2020-05-27 08:15 | Outpatient (RCR) | payer OTHER, SELFPAY ==
[2020-05-03 00:34] VITALS: BP 147/83; PULSE 92; RESP 16; TEMP 36.3
[2020-05-06 13:59] VITALS: BP 150/87; PULSE 99; RESP 20; TEMP 36.1; BMI 35.3
--- NOTE | 2020-05-06 14:33 | HP.PCM_ITS ---
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 Current Visit: Yes Code(s): I87.093 - Postthrombotic syndrome with other complications of bilateral lower extremity (7) Hyperpigmentation of skin Status: Chronic Current Visit: Yes Code(s): L81.9 - Disorder of pigmentation, unspecified (8) Lipodermatosclerosis of both lower extremities Status: Chronic Current Visit: Yes Code(s): I83.11 - Varicose veins of right lower extremity with inflammation; I83.12 - Varicose veins of left lower extremity with inflammation (9) Diallo phlebectatica Status: Chronic Current Visit: Yes (10) Wound of left leg Status: Chronic Current Visit: Yes Qualifiers: Encounter type: subsequent encounter Code(s): S81.802A - Unspecified open wound, left lower leg, initial encounter (11) Necrosis Status: Chronic Current Visit: Yes Code(s): I96 - Gangrene, not elsewhere classified (12) Obesity (BMI 35.0-39.9 without comorbidity) Status: Chronic Current Visit: No Code(s): E66.9 - Obesity, unspecified (13) Personal history of thrombophlebitis Status: Chronic Current Visit: No Code(s): Z86.72 - Personal history of thrombophlebitis History of Present Illness Date of Service: 05/06/20 Chief Complaint: Open wound of the left lateral calf, status-post incision and drainage of abscess History of Wound: This is a 59-year-old male who was admitted to [facility] approximately 1 month prior to presentation with a large abscess on the left lateral calf. On February 11, 2020, he underwent incision and drainage of the abscess. He spent approximately 5 days in the hospital, and was subsequently discharged on Augmentin. The patient claims to sleep on a flat ma ttress at night. However, he suffers from chronic swelling and edema in both lower extremities. Additionally, he has a history of superficial thrombophlebitis in the left lower extremity, and has undergone a prior left lower extremity vein stripping procedure in the remote past. Patient has developed chronic skin changes in his lower extremities, which include hyperpigmentation and lipodermatosclerosis in the gaiter areas bilaterally. Patient is also noted to have diallo phlebectatica at ankle level bilaterally. The patient claims to be relatively active. Management the time of presentation included the use of a wet-to-dry gauze packing daily. It is noted that patient underwent a venous duplex examination during his hospitalization recently, that was negative for any evidence of thrombosis, but indicated valvular incompetence of the deep and superficial venous systems bilaterally. 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 Home Medications: Ambulatory Orders Medication Instructions Recorded Augmentin 875-125 Tablet 875 mg PO BID 03/18/20 Rosuvastatin Calcium [Crestor] 20 mg PO DAILY 03/18/20 - Family History Paternal - - Patient's father at the age of 72 with a history of cerebrovascular accident and venous disease. Patient's mother at the age of 90, of old age. Smoking Status: Light Smoker (<10/day) Tobacco Use: Cigarettes Review of Systems Constitutional: Denies: Chills, Fever, Weight Change Eyes: Denies: Pain, Vision Change HEENT: Denies: Difficulty Hearing, Difficulty Swallowing, Sinus Congestion Cardiovascular: Denies: Chest Pain, Palpitations Respiratory: Denies: Cough, Shortness of Breath Gastrointestinal: Denies: Diarrhea, Nausea, Vomiting Genitourinary: Denies: Dysuria, Hematuria Endocrine: Denies: Heat/ Cold Intolerance, Polydipsia, Polyuria Hematologic/ Lymphatic: Denies: Easy Bruising, Easy Bleeding - Physical Exam Vital Signs Temp Pulse Resp BP 96.9 F L 99 20 H 150/87 H 05/06/20 13:59 05/06/20 13:59 05/06/20 13:59 05/06/20 13:59 General: Alert, Oriented x3, Cooperative, No apparent distress, Well developed, Well nourished HEENT: Atraumatic, PERRLA, EOMI, Normocephalic Oral: Moist Mucosa Neck: No JVD Lungs: Normal air movement Abdomen: Non-Distended Extremities: No clubbing, No cyanosis, No Calf Tenderness, - - Only slight swelling and edema is noted in the left lower extremity. Chronic skin changes of hyperpigmentation and lipodermatosclerosis are noted in the gaiter area. Ulceration on the left lateral calf persists. It is decreasing in depth. Dimensions are also decreasing, and are documented elsewhere. There is undermining posteriorly. There is no sign of infection or cellulitis. There is some disagreeable odor, though thought to be emanating from the drainage canister, rather than the wound itself. There is a small excoriation posterior to the ulceration itself, likely due to the negative pressure dressing. Wound Measurements and Assessment WC - Nurse 1 - General Ulcer Measurement Start: 05/06/20 13:59 Freq: Status: Active Protocol: Activity Type Activity Date Activity User E-Sign Co-Sign Detail Recorded Client Recorded Date Recorded By Document 05/06/20 13:59 DL [id number] 05/06/20 14:10 DL 05/06/20 13:59 Wound Center Nurse 1 [Ulcer Assessment] #1 Lateral LLE -Current Size (cm) - Length 4.4 -Current Size (cm) - Width 4 -Current Size (cm) - Depth 0.5 -Total Square Cm 17.6 -Undermining/Tunneling Starts (O' 2 clock) -Undermining/Tunneling Ends (O'clock) 4 -Maximum Distance (cm) 2 -Exudate Amt Large -Exudate Type Serosanguineous -Wound Margin Distinct, Outline Attached -Granulation Amt Large (67-100%) -Granulation Quality Red -Necrosis Amt Small (1-33%) -Necrotic Tissue Type Adherent Slough -Structure Exposed N/A -Texture (Lois-wound Skin Appearance) Scarring -Moisture (Lois-wound Skin Appearance No Abnormality ) -Color (Lois-wound Skin Appearance) Hemosiderin Staining -Temperature (Lois-wound Skin No Abnormality Appearance) (Pt Warm) -Tenderness on Palpation (Lois-wound No Skin Appearance) -Ulcer Cleansing Wound Cleanser -Anesthetic Used 4% Lidocaine Solution [Edema Assessment] -Left Calf (cm) 49.7 -Left Ankle (cm) 27.8 Musculoskeletal: No Muscle Wasting Neurological: Cranial nerves II-XII grossly intact, Neuro grossly intact Psych/Mental Status: Normal Affect, Appropriate, Alert and oriented to time, place, person, mood and affect Debridement Note Laterality: Left - Lateral calf Type of Debridement: Excisional debridement Anesthesia Used: 5% Lidocaine Gel Depth: Down to and including healthy tissue, in the subcutaneous layer Percentage of wound debrided: 100 Instrument Used: 5mm curette Tissue Removed: Bioburden Severity: Fat Layer Exposed Amount of bleeding with debridement: Mild Bleeding Controlled with: Compression and gauze Patient tolerated procedure well Assessment/Plan Active Problems Leg swelling (Chronic) Leg edema (Chronic) Abscess of left leg (Chronic) Surgical wound present (Chronic) Chronic venous insufficiency (Chronic) 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 He was hospitalized for approximately 5 days, and underwent incision and drainage of the abscess. He presented here for definitive management. At the time of his initial presentation, patient was noted to have a large amount of frankly necrotic and nonviable tissue present at the site of his former abscess, with some tunneling as well. The patient also suffers from longstanding swelling and edema of his lower extremities, and is known to have a history of superficial thrombophlebitis in the left lower extremity previously. Physical findings suggest longstanding chronic venous insufficiency. The patient has undergone a battery of diagnostic testing. An x-ray of the left tibia/fibula shows soft tissue changes, but no other abnormalities. Laboratory results from 03/20/2020 are as follows: White blood count 6.0, hemoglobin 14.4, hematocrit 44.7, platelets 247,000, sodium 137, potassium 4.1, chloride 104, BUN 20, creatinine 0.76, glucose 127, calcium 9.1, total bilirubin 0.60, AST 14, ALT 31, alkaline phosphatase 57, total protein 7.6, albumin 4.1, prealbumin 29.2. Recently, a noninvasive lower extremity arterial study revealed no evidence of significant arterial occlusive disease in the lower extremities. A venous duplex examination revealed incompetence of the great saphenous veins bilaterally. At this juncture, the patient appears to be progressing well, with a progressive decrease in the size and depth of his wound. Undermining posteriorly persists, and may be problematic in terms of ultimate wound healing. Plan: The patient has been advised to continue conservative treatment measures. These are to include leg elevation. He is to continue sleeping on a flat mattress at night. His legs are to be elevated to heart level, or higher, even during daytime hours. This is to be implemented as much as possible. The patient has been advised to refrain from prolonged, idle standing and sitting. Activity has been encouraged. Implementation of the calf and foot muscle pumps has been explained. Weight loss is also been recommended. We are to continue compression by means of SurePress wraps to both lower extremities. The bulk of the nonviable and necrotic tissue has been removed from the patient's wound by means of excisional and enzymatic debridements. We have initiated the use of a wound VAC, which the patient appears to be tolerating well. We are to continue the use of the wound VAC. The patient will return for his routine physician assessment in 1 week, though will reappear for a change of his negative pressure wound therapy device later this week. 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 Once again, we have reinforced the need for compression, elevation, avoidance of prolonged, idle sitting, etc. Patient smokes rarely, but has been advised to refrain from his smoking habit. Influenza vaccine was not administered today. Patient stands 5 feet 10 inches tall. He weighs 246 pounds. His BMI is 35.3, which places him in a class II obesity category. Weight loss has been recommended, in collaboration with the patient's primary care physician has been advised.
[2020-05-09 14:56] VITALS: BP 155/88; PULSE 95; RESP 18; TEMP 36.2; BMI 35.3
[2020-05-13 08:08] VITALS: BP 146/96; PULSE 96; RESP 20; TEMP 36.9; BMI 35.3
--- NOTE | 2020-05-13 08:29 | PCM.WC.HP ---
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 Current Visit: Yes Code(s): I87.093 - Postthrombotic syndrome with other complications of bilateral lower extremity (7) Hyperpigmentation of skin Status: Chronic Current Visit: Yes Code(s): L81.9 - Disorder of pigmentation, unspecified (8) Lipodermatosclerosis of both lower extremities Status: Chronic Current Visit: Yes Code(s): I83.11 - Varicose veins of right lower extremity with inflammation; I83.12 - Varicose veins of left lower extremity with inflammation (9) Diallo phlebectatica Status: Chronic Current Visit: Yes (10) Wound of left leg Status: Chronic Current Visit: Yes Qualifiers: Encounter type: subsequent encounter Code(s): S81.802A - Unspecified open wound, left lower leg, initial encounter (11) Necrosis Status: Chronic Current Visit: Yes Code(s): I96 - Gangrene, not elsewhere classified (12) Obesity (BMI 35.0-39.9 without comorbidity) Status: Chronic Current Visit: No Code(s): E66.9 - Obesity, unspecified (13) Personal history of thrombophlebitis Status: Chronic Current Visit: No Code(s): Z86.72 - Personal history of thrombophlebitis History of Present Illness Date of Service: 05/13/20 Chief Complaint: Open wound of the left lateral calf, status-post incision and drainage of abscess History of Wound: This is a 59-year-old male who was admitted to [facility] approximately 1 month prior to presentation with a large abscess on the left lateral calf. On February 11, 2020, he underwent incision and drainage of the abscess. He spent approximately 5 days in the hospital, and was subsequently discharged on Augmentin. The patient claims to sleep on a flat mattress at night. However, he suffers from chronic swelling and edema in both lower extremities. Additionally, he has a history of superficial thrombophlebitis in the left lower extremity, and has undergone a prior left lower extremity vein stripping procedure in the remote past. Patient has developed chronic skin changes in his lower extremities, which include hyperpigmentation and lipodermatosclerosis in the gaiter areas bilaterally. Patient is also noted to have diallo phlebectatica at ankle level bilaterally. The patient claims to be relatively active. Management the time of presentation included the use of a wet-to-dry gauze packing daily. It is noted that patient underwent a venous duplex examination during his hospitalization recently, that was negative for any evidence of thrombosis, but indicated valvular incompetence of the deep and superficial venous systems bilaterally. 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 Home Medications: Ambulatory Orders Medication Instructions Recorded Augmentin 875-125 Tablet 875 mg PO BID 03/18/20 Rosuvastatin Calcium [Crestor] 20 mg PO DAILY 03/18/20 - Family History Paternal - - Patient's father at the age of 72 with a history of cerebrovascular accident and venous disease. Patient's mother at the age of 90, of old age. Smoking Status: Light Smoker (<10/day) Tobacco Use: Cigarettes Review of Systems Constitutional: Denies: Chills, Fever, Weight Change Eyes: Denies: Pain, Vision Change HEENT: Denies: Difficulty Hearing, Difficulty Swallowing, Sinus Congestion Cardiovascular: Denies: Chest Pain, Palpitations Respiratory: Denies: Cough, Shortness of Breath Gastrointestinal: Denies: Diarrhea, Nausea, Vomiting Genitourinary: Denies: Dysuria, Hematuria Endocrine: Denies: Heat/ Cold Intolerance, Polydipsia, Polyuria Hematologic/ Lymphatic: Denies: Easy Bruising, Easy Bleeding - Physical Exam Vital Signs Temp Pulse Resp BP 98.4 F 96 20 H 146/96 H 05/13/20 08:08 05/13/20 08:08 05/13/20 08:08 05/13/20 08:08 General: Alert, Oriented x3, Cooperative, No apparent distress, Well developed, Well nourished HEENT: Atraumatic, PERRLA, EOMI, Normocephalic Oral: Moist Mucosa Neck: No JVD Lungs: Normal air movement Abdomen: Non-Distended Extremities: No clubbing, No cyanosis, No Calf Tenderness, - - Mild swelling and edema is noted in the patient's lower extremities bilaterally. The wound on the left lateral calf persists, though it appears smaller in size. Dimensions are documented elsewhere. The base of the wound is pink and healthy in appearance, with active granulation tissue. There is no sign of infection or cellulitis. There is a moderate amount of bioburden. Undermining persists posteriorly. Skin: No rashes Wound Measurements and Assessment WC - Nurse 1 - General Ulcer Measurement Start: 05/06/20 13:59 Freq: Status: Active Protocol: Activity Type Activity Date Activity User E-Sign Co-Sign Detail Recorded Client Recorded Date Recorded By Document 05/13/20 08:08 HENRY [id number] 05/13/20 08:18 DL 05/13/20 08:08 Wound Center Nurse 1 [Ulcer Assessment] #1 Lateral LLE -Current Size (cm) - Length 4 -Current Size (cm) - Width 3.3 -Current Size (cm) - Depth 0.2 -Total Square Cm 13.2 -Photo Taken No -Undermining/Tunneling Starts (O' 2 clock) -Undermining/Tunneling Ends (O'clock) 4 -Maximum Distance (cm) 1.1 -Exudate Amt Medium -Exudate Type Serosanguineous -Wound Margin Thickened & Rolled Under -Granulation Amt Large (67-100%) -Granulation Quality Red -Necrosis Amt Small (1-33%) -Necrotic Tissue Type Adherent Slough -Structure Exposed N/A -Texture (Lois-wound Skin Appearance) Localized Edema ,Scarring,Rash -Moisture (Lois-wound Skin Appearance No Abnormality ) -Color (Lois-wound Skin Appearance) Hemosiderin Staining -Temperature (Lois-wound Skin No Abnormality Appearance) (Pt Warm) -Tenderness on Palpation (Lois-wound No Skin Appearance) -Ulcer Cleansing Wound Cleanser -Foul Odor after Cleansing Yes -Anesthetic Used 4% Lidocaine Solution [Edema Assessment] -Left Calf (cm) 42 -Left Ankle (cm) 26.8 - Nurse 2 - General Ulcer CM Notes Start: 05/06/20 13:59 Freq: Status: Active Protocol: Activity Type Activity Date Activity User E-Sign Co-Sign Detail Recorded Client Recorded Date Recorded By Document 05/13/20 08:26 PL [id number] 05/13/20 08:29 PL 05/13/20 08:26 Wound Center Nurse 2 [Procedure/Treatment] #1 Lateral LLE -Time 08:23 -Correct Patient Yes -Correct Side, Site, Position Yes -Correct Procedure Yes -Procedure Performed Yes -Type of Procedure Debridement -Clinical Debridement Subcutaneous -Post Debridement Size (cm) - Length 4 -Post Debridement Size (cm) - Width 3 -Post Debridement Size (cm) - Depth 0.9 -Total Square (cm) 12 -Wound/Ulcer Outcome Not Healed -Ulcer Cleansing Rinsed/ Irrigated with Saline -Foul Odor after Cleansing No -Treatment Response Procedure Tolerated Well [See Physician Procedure note for Specifics] Pain Scale: 0-10 Numeric [Pain] -Is Patient Pain Free? Yes Musculoskeletal: No Muscle Wasting Neurological: Cranial nerves II-XII grossly intact, Neuro grossly intact Psych/Mental Status: Normal Affect, Appropriate, Alert and oriented to time, place, person, mood and affect Debridement Note Post-Debridement Measurements/Treatment - Nurse 2 - General Ulcer CM Notes Start: 05/06/20 13:59 Freq: Status: Active Protocol: Activity Type Activity Date Activity User E-Sign Co-Sign Detail Recorded Client Recorded Date Recorded By Document 05/09/20 14:56 PL [id number] 05/09/20 14:59 PL Document 05/13/20 08:26 PL [id number] 05/13/20 08:29 PL 05/09/20 05/13/20 14:56 08:26 Pain Scale: 0-10 Numeric Is Patient Pain Free? Yes Yes Wound Center Nurse 2 #1 Lateral LLE -Time 08:23 -Correct Patient Yes -Correct Side, Site, Position Yes -Correct Procedure Yes -Procedure Performed Yes -Type of Procedure Debridement -Clinical Debridement Subcutaneous -Post Debridement Size (cm) - Length 4 -Post Debridement Size (cm) - Width 3 -Post Debridement Size (cm) - Depth 0.9 -Total Square (cm) 12 -Wound/Ulcer Outcome Not Healed -Ulcer Cleansing Rinsed/ Irrigated with Saline -Foul Odor after Cleansing No -Treatment Response Procedure Tolerated Well Laterality: Left - Lateral calf Type of Debridement: Excisional debridement Anesthesia Used: 5% Lidocaine Gel Depth: Down to and including healthy tissue, in the subcutaneous layer Percentage of wound debrided: 100 Instrument Used: 5mm curette Tissue Removed: Bioburden Severity: Fat Layer Exposed Amount of bleeding with debridement: Mild Bleeding Controlled with: Compression and gauze Patient tolerated procedure well Assessment/Plan Active Problems Leg swelling (Chronic) Leg edema (Chronic) Abscess of left leg (Chronic) Surgical wound present (Chronic) Chronic venous insufficiency (Chronic) 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 He was hospitalized for approximately 5 days, and underwent incision and drainage of the abscess. He presented here for definitive management. At the time of his initial presentation, patient was noted to have a large amount of frankly necrotic and nonviable tissue present at the site of his former abscess, with some tunneling as well. The patient also suffers from longstanding swelling and edema of his lower extremities, and is known to have a history of superficial thrombophlebitis in the left lower extremity previously. Physical findings suggest longstanding chronic venous insufficiency. The patient has undergone a battery of diagnostic testing. An x-ray of the left tibia/fibula shows soft tissue changes, but no other abnormalities. Laboratory results from 03/20/2020 are as follows: White blood count 6.0, hemoglobin 14.4, hematocrit 44.7, platelets 247,000, sodium 137, potassium 4.1, chloride 104, BUN 20, creatinine 0.76, glucose 127, calcium 9.1, total bilirubin 0.60, AST 14, ALT 31, alkaline phosphatase 57, total protein 7.6, albumin 4.1, prealbumin 29.2. Recently, a noninvasive lower extremity arterial study revealed no evidence of significant arterial occlusive disease in the lower extremities. A venous duplex examination revealed incompetence of the great saphenous veins bilaterally. At this juncture, the patient appears to be progressing well, with a progressive decrease in the size and depth of his wound. Undermining posteriorly persists, and may be problematic in terms of ultimate wound healing. Plan: The patient has been advised to continue conservative treatment measures. These are to include leg elevation. He is to continue sleeping on a flat mattress at night. His legs are to be elevated to heart level, or higher, even during daytime hours. This is to be implemented as much as possible. The patient has been advised to refrain from prolonged, idle standing and sitting. Activity has been encouraged. Implementation of the calf and foot muscle pumps has been explained. Weight loss is also been recommended. We are to continue compression by means of SurePress wraps to both lower extremities. The bulk of the nonviable and necrotic tissue has been removed from the patient's wound by means of excisional and enzymatic debridements. We have initiated the use of a Snap VAC, which the patient appears to be tolerating well. We are to continue the use of the Snap VAC. The patient will return for his routine physician assessment in 1 week, though will reappear for a change of his negative pressure wound therapy device later this week. 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 Once again, we have reinforced the need for compression, elevation, avoidance of prolonged, idle sitting, etc. Patient smokes rarely, but has been advised to refrain from his smoking habit. Influenza vaccine was not administered today. Patient stands 5 feet 10 inches tall. He weighs 246 pounds. His BMI is 35.3, which places him in a class II obesity category. Weight loss has been recommended, in collaboration with the patient's primary care physician has been advised.
[2020-05-16 08:14] VITALS: BP 150/71; PULSE 91; RESP 18; TEMP 36.3; BMI 35.3
[2020-05-20 08:23] VITALS: BP 152/80; PULSE 86; RESP 18; TEMP 36.6; BMI 35.3
--- NOTE | 2020-05-20 09:06 | HP.PCM_ITS ---
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 Current Visit: Yes Code(s): I87.093 - Postthrombotic syndrome with other complications of bilateral lower extremity (7) Hyperpigmentation of skin Status: Chronic Current Visit: Yes Code(s): L81.9 - Disorder of pigmentation, unspecified (8) Lipodermatosclerosis of both lower extremities Status: Chronic Current Visit: Yes Code(s): I83.11 - Varicose veins of right lower extremity with inflammation; I83.12 - Varicose veins of left lower extremity with inflammation (9) Diallo phlebectatica Status: Chronic Current Visit: Yes (10) Wound of left leg Status: Chronic Current Visit: Yes Qualifiers: Encounter type: subsequent encounter Code(s): S81.802A - Unspecified open wound, left lower leg, initial encounter (11) Necrosis Status: Chronic Current Visit: Yes Code(s): I96 - Gangrene, not elsewhere classified (12) Obesity (BMI 35.0-39.9 without comorbidity) Status: Chronic Current Visit: No Code(s): E66.9 - Obesity, unspecified (13) Personal history of thrombophlebitis Status: Chronic Current Visit: No Code(s): Z86.72 - Personal history of thrombophlebitis History of Present Illness Date of Service: 05/20/20 Chief Complaint: Open wound of the left lateral calf, status-post incision and drainage of abscess History of Wound: This is a 59-year-old male who was admitted to [facility] approximately 1 month prior to presentation with a large abscess on the left lateral calf. On February 11, 2020, he underwent incision and drainage of the abscess. He spent approximately 5 days in the hospital, and was subsequently discharged on Augmentin. The patient claims to sleep on a flat ma ttress at night. However, he suffers from chronic swelling and edema in both lower extremities. Additionally, he has a history of superficial thrombophlebitis in the left lower extremity, and has undergone a prior left lower extremity vein stripping procedure in the remote past. Patient has developed chronic skin changes in his lower extremities, which include hyperpigmentation and lipodermatosclerosis in the gaiter areas bilaterally. Patient is also noted to have diallo phlebectatica at ankle level bilaterally. The patient claims to be relatively active. Management the time of presentation included the use of a wet-to-dry gauze packing daily. It is noted that patient underwent a venous duplex examination during his hospitalization recently, that was negative for any evidence of thrombosis, but indicated valvular incompetence of the deep and superficial venous systems bilaterally. 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 Home Medications: Ambulatory Orders Medication Instructions Recorded Augmentin 875-125 Tablet 875 mg PO BID 03/18/20 Rosuvastatin Calcium [Crestor] 20 mg PO DAILY 03/18/20 - Family History Paternal - - Patient's father at the age of 72 with a history of cerebrovascular accident and venous disease. Patient's mother at the age of 90, of old age. Smoking Status: Light Smoker (<10/day) Tobacco Use: Cigarettes Review of Systems Constitutional: Denies: Chills, Fever, Weight Change Eyes: Denies: Pain, Vision Change HEENT: Denies: Difficulty Hearing, Difficulty Swallowing, Sinus Congestion Cardiovascular: Denies: Chest Pain, Palpitations Respiratory: Denies: Cough, Shortness of Breath Gastrointestinal: Denies: Diarrhea, Nausea, Vomiting Genitourinary: Denies: Dysuria, Hematuria Endocrine: Denies: Heat/ Cold Intolerance, Polydipsia, Polyuria Hematologic/ Lymphatic: Denies: Easy Bruising, Easy Bleeding - Physical Exam Vital Signs Temp Pulse Resp BP 97.8 F 86 18 152/80 H 05/20/20 08:23 05/20/20 08:23 05/20/20 08:23 05/20/20 08:23 General: Alert, Oriented x3, Cooperative, No apparent distress, Well developed, Well nourished HEENT: Atraumatic, PERRLA, EOMI, Normocephalic Oral: Moist Mucosa Neck: No JVD Lungs: Normal air movement Abdomen: Non-Distended Extremities: No clubbing, No cyanosis, No Calf Tenderness, - - Minimal swelling and edema are noted in the patient's left lower extremity. The open wound on the left lateral calf persists. However, it appears to be smaller in size. Dimensions are documented elsewhere. There is no sign of infection or cellulitis. The base of the wound demonstrates active, healthy granulation tissue. There is a moderate amount of bioburden. Unlike recent prior visits, there is no odor. There is a small amount of undermining posteriorly. This has been chronic in nature. Skin: No rashes Wound Measurements and Assessment WC - Nurse 1 - General Ulcer Measurement Start: 05/06/20 13:59 Freq: Status: Active Protocol: Activity Type Activity Date Activity User E-Sign Co-Sign Detail Recorded Client Recorded Date Recorded By Document 05/20/20 08:23 [place] [id number] 05/20/20 08:31 PL 05/20/20 08:23 Wound Center Nurse 1 [Ulcer Assessment] #1 Lateral LLE -Combined with other wound No -Current Size (cm) - Length 3.7 -Current Size (cm) - Width 3.5 -Current Size (cm) - Depth 0.4 -Total Square Cm 12.95 -Photo Taken No -Epithelialization None Present -Tunneling Yes -Tunneling Position (O'clock) 3 -Tunneling Distance (cm) 0.9 -Exudate Amt Medium -Exudate Type Serosanguineous -Granulation Amt Large (67-100%) -Granulation Quality [place] -Slough/Fibrin Yes -Necrosis Amt Small (1-33%) -Necrotic Tissue Type Adherent Slough -Texture (Lois-wound Skin Appearance) No Abnormality -Moisture (Lois-wound Skin Appearance No Abnormality ) -Color (Lois-wound Skin Appearance) No Abnormality -Temperature (Lois-wound Skin No Abnormality Appearance) (Pt Warm) -Ulcer Cleansing Rinsed/ Irrigated with Saline -Foul Odor after Cleansing No -Anesthetic Used 4% Lidocaine Solution - Nurse 2 - General Ulcer CM Notes Start: 05/19/20 10:59 Freq: Status: Active Protocol: Activity Type Activity Date Activity User E-Sign Co-Sign Detail Recorded Client Recorded Date Recorded By Document 05/20/20 08:46 PL [id number] 05/20/20 08:52 PL 05/20/20 08:46 Wound Center Nurse 2 [Procedure/Treatment] -Time 08:46 -Correct Patient Yes -Correct Side, Site, Position Yes -Correct Procedure Yes -Procedure Performed Yes -Type of Procedure Debridement -Clinical Debridement Subcutaneous -Tissue Removed Subcutaneous -Post Debridement (cm) - Length 4 -Post Debridement (cm) - Width 3.5 -Post Debridement (cm) - Depth 0.2 -Total Square (Post) (cm) 14.0 -Area of Debridement (cm) - Length 7 -Area of Debridement (cm) - Width 3.5 -Total Square (Area) (cm) 24.5 -Tunneling No -Undermining/Tunneling No -Circular Undermining No -Wound/Ulcer Outcome Not Healed -Bioengineered Tissue No -Debridement - Subq, 1st 20sq cm Yes -Debridement, SubQ, ea addt'l 20sq cm 1 or part thereof [See Physician Procedure note for Specifics] Pain Scale: 0-10 Numeric [Pain] -Is Patient Pain Free? Yes Musculoskeletal: No Muscle Wasting Neurological: Cranial nerves II-XII grossly intact, Neuro grossly intact Psych/Mental Status: Normal Affect, Appropriate, Alert and oriented to time, place, person, mood and affect Debridement Note Post-Debridement Measurements/Treatment - Nurse 2 - General Ulcer CM Notes Start: 05/19/20 10:59 Freq: Status: Active Protocol: Activity Type Activity Date Activity User E-Sign Co-Sign Detail Recorded Client Recorded Date Recorded By Document 05/20/20 08:46 PL [id number] 05/20/20 08:52 PL 05/20/20 08:46 Wound Center Nurse 2 #1 Lateral LLE -Time 08:46 -Correct Patient Yes -Correct Side, Site, Position Yes -Correct Procedure Yes -Procedure Performed Yes -Type of Procedure Debridement -Clinical Debridement Subcutaneous -Tissue Removed Subcutaneous -Post Debridement (cm) - Length 4 -Post Debridement (cm) - Width 3.5 -Post Debridement (cm) - Depth 0.2 -Total Square (Post) (cm) 14.0 -Area of Debridement (cm) - Length 7 -Area of Debridement (cm) - Width 3.5 -Total Square (Area) (cm) 24.5 -Tunneling No -Undermining/Tunneling No -Circular Undermining No -Wound/Ulcer Outcome Not Healed -Bioengineered Tissue No -Debridement - Subq, 1st 20sq cm Yes -Debridement, SubQ, ea addt'l 20sq cm 1 or part thereof Pain Scale: 0-10 Numeric Is Patient Pain Free? Yes Laterality: Left - Lateral calf Type of Debridement: Excisional debridement Anesthesia Used: 5% Lidocaine Gel Depth: Down to and including healthy tissue, in the subcutaneous layer Percentage of wound debrided: 100 Instrument Used: 5mm curette Tissue Removed: Bioburden Severity: Fat Layer Exposed Amount of bleeding with debridement: Mild Bleeding Controlled with: Compression and gauze Patient tolerated procedure well Assessment/Plan Active Problems Leg swelling (Chronic) Leg edema (Chronic) Abscess of left leg (Chronic) Surgical wound present (Chronic) Chronic venous insufficiency (Chronic) 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 He was hospitalized for approximately 5 days, and underwent incision and drainage of the abscess. He presented here for definitive management. At the time of his initial presentation, patient was noted to have a large amount of frankly necrotic and nonviable tissue present at the site of his former abscess, with some tunneling as well. The patient also suffers from longstanding swelling and edema of his lower extremities, and is known to have a history of superficial thrombophlebitis in the left lower extremity previously. Physical findings suggest longstanding chronic venous insufficiency. The patient has undergone a battery of diagnostic testing. An x-ray of the left tibia/fibula shows soft tissue changes, but no other abnormalities. Laboratory results from 03/20/2020 are as follows: White blood count 6.0, hemoglobin 14.4, hematocrit 44.7, platelets 247,000, sodium 137, potassium 4.1, chloride 104, BUN 20, creatinine 0.76, glucose 127, calcium 9.1, total bilirubin 0.60, AST 14, ALT 31, alkaline phosphatase 57, total protein 7.6, albumin 4.1, prealbumin 29.2. Recently, a noninvasive lower extremity arterial study revealed no evidence of significant arterial occlusive disease in the lower extremities. A venous duplex examination revealed incompetence of the great saphenous veins bilaterally. At this juncture, the patient appears to be progressing well, with a progressive decrease in the size and depth of his wound. Undermining posteriorly persists, and may be problematic in terms of ultimate wound healing. Plan: The patient has been advised to continue conservative treatment measures. These are to include leg elevation. He is to continue sleeping on a flat mattress at night. His legs are to be elevated to heart level, or higher, even during daytime hours. This is to be implemented as much as possible. The patient has been advised to refrain from prolonged, idle standing and sitting. Activity has been encouraged. Implementation of the calf and foot muscle pumps has been explained. Weight loss is also been recommended. We are to continue compression by means of SurePress wraps to both lower extremities. The bulk of the nonviable and necrotic tissue has been removed from the patient's wound by means of excisional and enzymatic debridements. We have initiated the use of a Snap VAC, which the patient appears to be tolerating well. We are to continue the use of the Snap VAC. The patient will return for his routine physician assessment in 1 week, though will reappear for a change of his negative pressure wound therapy device later this week. 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 Once again, we have reinforced the need for compression, elevation, avoidance of prolonged, idle sitting, etc. Patient smokes rarely, but has been advised to refrain from his smoking habit. Influenza vaccine was not administered today. Patient stands 5 feet 10 inches tall. He weighs 246 pounds. His BMI is 35.3, which places him in a class II obesity category. Weight loss has been recommended, in collaboration with the patient's primary care physician has been advised.
[2020-05-23 07:46] VITALS: BP 150/82; PULSE 85; RESP 18; TEMP 36.4; BMI 35.3
[2020-05-27 08:14] VITALS: BP 131/83; PULSE 114; RESP 18; TEMP 36.4; BMI 35.3
--- NOTE | 2020-05-27 08:48 | HP.PCM_ITS ---
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 Current Visit: Yes Code(s): I87.093 - Postthrombotic syndrome with other complications of bilateral lower extremity (7) Hyperpigmentation of skin Status: Chronic Current Visit: Yes Code(s): L81.9 - Disorder of pigmentation, unspecified (8) Lipodermatosclerosis of both lower extremities Status: Chronic Current Visit: Yes Code(s): I83.11 - Varicose veins of right lower extremity with inflammation; I83.12 - Varicose veins of left lower extremity with inflammation (9) Diallo phlebectatica Status: Chronic Current Visit: Yes (10) Wound of left leg Status: Chronic Current Visit: Yes Qualifiers: Encounter type: subsequent encounter Code(s): S81.802A - Unspecified open wound, left lower leg, initial encounter (11) Necrosis Status: Chronic Current Visit: Yes Code(s): I96 - Gangrene, not elsewhere classified (12) Obesity (BMI 35.0-39.9 without comorbidity) Status: Chronic Current Visit: No Code(s): E66.9 - Obesity, unspecified (13) Personal history of thrombophlebitis Status: Chronic Current Visit: No Code(s): Z86.72 - Personal history of thrombophlebitis History of Present Illness Date of Service: 05/27/20 Chief Complaint: Open wound of the left lateral calf, status-post incision and drainage of abscess History of Wound: This is a 59-year-old male who was admitted to [facility] approximately 1 month prior to presentation with a large abscess on the left lateral calf. On February 11, 2020, he underwent incision and drainage of the abscess. He spent approximately 5 days in the hospital, and was subsequently discharged on Augmentin. The patient claims to sleep on a flat ma ttress at night. However, he suffers from chronic swelling and edema in both lower extremities. Additionally, he has a history of superficial thrombophlebitis in the left lower extremity, and has undergone a prior left lower extremity vein stripping procedure in the remote past. Patient has developed chronic skin changes in his lower extremities, which include hyperpigmentation and lipodermatosclerosis in the gaiter areas bilaterally. Patient is also noted to have diallo phlebectatica at ankle level bilaterally. The patient claims to be relatively active. Management the time of presentation included the use of a wet-to-dry gauze packing daily. It is noted that patient underwent a venous duplex examination during his hospitalization recently, that was negative for any evidence of thrombosis, but indicated valvular incompetence of the deep and superficial venous systems bilaterally. 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 Home Medications: Ambulatory Orders Medication Instructions Recorded Augmentin 875-125 Tablet 875 mg PO BID 03/18/20 Rosuvastatin Calcium [Crestor] 20 mg PO DAILY 03/18/20 - Family History Paternal - - Patient's father at the age of 72 with a history of cerebrovascular accident and venous disease. Patient's mother at the age of 90, of old age. Smoking Status: Light Smoker (<10/day) Tobacco Use: Cigarettes Review of Systems Constitutional: Denies: Chills, Fever, Weight Change Eyes: Denies: Pain, Vision Change HEENT: Denies: Difficulty Hearing, Difficulty Swallowing, Sinus Congestion Cardiovascular: Denies: Chest Pain, Palpitations Respiratory: Denies: Cough, Shortness of Breath Gastrointestinal: Denies: Diarrhea, Nausea, Vomiting Genitourinary: Denies: Dysuria, Hematuria Endocrine: Denies: Heat/ Cold Intolerance, Polydipsia, Polyuria Hematologic/ Lymphatic: Denies: Easy Bruising, Easy Bleeding - Physical Exam Vital Signs Temp Pulse Resp BP 97.6 F L 114 H 18 131/83 H 05/27/20 08:14 05/27/20 08:14 05/27/20 08:14 05/27/20 08:14 General: Alert, Oriented x3, Cooperative, No apparent distress, Well developed, Well nourished HEENT: Atraumatic, PERRLA, EOMI, Normocephalic Oral: Moist Mucosa Neck: No JVD Lungs: Normal air movement Abdomen: Non-Distended Extremities: No clubbing, No cyanosis, No Calf Tenderness, - - Slight swelling and edema noted in the patient's left lower extremity. Chronic skin changes persist, namely hyperpigmentation and lipodermatosclerosis. There are some large varicosities on the left anterior tibial surface. The wound on the left lateral calf persists. It is smaller in size. Dimensions are documented elsewhere. There is no sign of infection or cellulitis. There is a moderate amount of bioburden. A small amount of undermining persists posteriorly, though this appears to be diminishing slightly over time. Skin: No rashes Wound Measurements and Assessment WC - Nurse 1 - General Ulcer Measurement Start: 05/06/20 13:59 Freq: Status: Active Protocol: Activity Type Activity Date Activity User E-Sign Co-Sign Detail Recorded Client Recorded Date Recorded By Document 05/27/20 08:14 [place] [id number] 05/27/20 08:21 PL 05/27/20 08:14 Wound Center Nurse 1 [Ulcer Assessment] #1 Lateral LLE -Combined with other wound No -Current Size (cm) - Length 3.5 -Current Size (cm) - Width 3 -Current Size (cm) - Depth 0.3 -Total Square Cm 10.5 -Photo Taken No -Epithelialization None Present -Tunneling Yes -Tunneling Position (O'clock) 3 -Tunneling Distance (cm) 0.4 -Undermining/Tunneling No -Circular Undermining No -Exudate Amt Large -Exudate Type Serosanguineous -Granulation Amt Large (67-100%) -Granulation Quality [place],Red -Slough/Fibrin Yes -Necrosis Amt Small (1-33%) -Necrotic Tissue Type Adherent Slough -Texture (Lois-wound Skin Appearance) No Abnormality -Moisture (Lois-wound Skin Appearance No Abnormality ) -Color (Lois-wound Skin Appearance) No Abnormality -Temperature (Lois-wound Skin No Abnormality Appearance) (Pt Warm) -Foul Odor after Cleansing No -Anesthetic Used 4% Lidocaine Solution - Nurse 2 - General Ulcer CM Notes Start: 05/19/20 10:59 Freq: Status: Active Protocol: Activity Type Activity Date Activity User E-Sign Co-Sign Detail Recorded Client Recorded Date Recorded By Document 05/27/20 08:43 PL [id number] 05/27/20 08:48 PL 05/27/20 08:43 Wound Center Nurse 2 [Procedure/Treatment] -Time 08:44 -Correct Patient Yes -Correct Side, Site, Position Yes -Correct Procedure Yes -Procedure Performed Yes -Type of Procedure Debridement -Clinical Debridement Subcutaneous -Tissue Removed Subcutaneous -Post Debridement (cm) - Length 3.5 -Post Debridement (cm) - Width 3 -Post Debridement (cm) - Depth 0.3 -Total Square (Post) (cm) 10.5 -Area of Debridement (cm) - Length 3.5 -Area of Debridement (cm) - Width 3 -Total Square (Area) (cm) 10.5 -Wound/Ulcer Outcome Not Healed -Ulcer Cleansing Rinsed/ Irrigated with Saline -Foul Odor after Cleansing No -Bioengineered Tissue No -Debridement - Subq, 1st 20sq cm Yes [See Physician Procedure note for Specifics] Pain Scale: 0-10 Numeric [Pain] -Is Patient Pain Free? Yes Musculoskeletal: No Muscle Wasting Neurological: Cranial nerves II-XII grossly intact, Neuro grossly intact Psych/Mental Status: Normal Affect, Appropriate, Alert and oriented to time, place, person, mood and affect Debridement Note Post-Debridement Measurements/Treatment - Nurse 2 - General Ulcer CM Notes Start: 05/19/20 10:59 Freq: Status: Active Protocol: Activity Type Activity Date Activity User E-Sign Co-Sign Detail Recorded Client Recorded Date Recorded By Document 05/20/20 08:46 PL [id number] 05/20/20 08:52 PL Document 05/23/20 07:46 PL [id number] 05/23/20 07:49 PL Document 05/27/20 08:43 PL [id number] 05/27/20 08:48 PL 05/20/20 05/23/20 05/27/20 08:46 07:46 08:43 Wound Center Nurse 2 #1 Lateral LLE -Time 08:46 08:44 -Correct Patient Yes Yes -Correct Side, Site, Position Yes Yes -Correct Procedure Yes Yes -Procedure Performed Yes Yes -Type of Procedure Debridement Debridement -Clinical Debridement Subcutaneous Subcutaneous -Tissue Removed Subcutaneous Subcutaneous -Post Debridement (cm) - Length 4 3.5 -Post Debridement (cm) - Width 3.5 3 -Post Debridement (cm) - Depth 0.2 0.3 -Total Square (Post) (cm) 14.0 10.5 -Area of Debridement (cm) - Length 7 3.5 -Area of Debridement (cm) - Width 3.5 3 -Total Square (Area) (cm) 24.5 10.5 -Tunneling No -Undermining/Tunneling No -Circular Undermining No -Wound/Ulcer Outcome Not Healed Not Healed -Ulcer Cleansing Rinsed/ Irrigated with Saline -Foul Odor after Cleansing No -Bioengineered Tissue No No -Debridement - Subq, 1st 20sq cm Yes Yes -Debridement, SubQ, ea addt'l 20sq cm 1 or part thereof Pain Scale: 0-10 Numeric Is Patient Pain Free? Yes Yes Yes WC - Nurse 3 - General Ulcer D/C NN Start: 05/19/20 23:24 Freq: Status: Active Protocol: Activity Type Activity Date Activity User E-Sign Co-Sign Detail Recorded Client Recorded Date Recorded By Document 05/20/20 09:12 PL [id number] 05/20/20 09:14 PL Document 05/23/20 07:46 PL [id number] 05/23/20 07:49 PL 05/20/20 05/23/20 09:12 07:46 Wound Care Nurse 3 #1 Lateral LLE -Ulcer Cleansing Rinsed/ Soap and water Irrigated with Saline -Foul Odor after Cleansing No No -Negative Pressure Wound Therapy Continue Continue -Setting (mmHg) 125 125 -Negative Pressure is Continuous -Primary Dressing Covered/Secured with Dry Gauze -NPWT Application Charge ($) NPWT </= 50 sq NPWT </= 50 sq cm (disp) cm (disp) -Surepress 1 Pain Scale: 0-10 Numeric Is Patient Pain Free? Yes Yes WC - Visit Discharge Discharge Condition Stable Stable Ambulatory Status Ambulatory Ambulatory Transportation Private Auto Clinical Summary of Care Provided Yes Laterality: Left - Lateral calf Type of Debridement: Excisional debridement Anesthesia Used: 5% Lidocaine Gel Depth: Down to and including healthy tissue, in the subcutaneous layer Percentage of wound debrided: 100 Instrument Used: 5mm curette Tissue Removed: Bioburden Severity: Fat Layer Exposed Amount of bleeding with debridement: Mild Bleeding Controlled with: Compression and gauze Patient tolerated procedure well Assessment/Plan Active Problems Leg swelling (Chronic) Leg edema (Chronic) Abscess of left leg (Chronic) Surgical wound present (Chronic) Chronic venous insufficiency (Chronic) 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 He was hospitalized for approximately 5 days, and underwent incision and drainage of the abscess. He presented here for definitive management. At the time of his initial presentation, patient was noted to have a large amount of frankly necrotic and nonviable tissue present at the site of his former abscess, with some tunneling as well. The patient also suffers from longstanding swelling and edema of his lower extremities, and is known to have a history of superficial thrombophlebitis in the left lower extremity previously. Physical findings suggest longstanding chronic venous insufficiency. The patient has undergone a battery of diagnostic testing. An x-ray of the left tibia/fibula shows soft tissue changes, but no other abnormalities. Laboratory results from 03/20/2020 are as follows: White blood count 6.0, hemoglobin 14.4, hematocrit 44.7, platelets 247,000, sodium 137, potassium 4.1, chloride 104, BUN 20, creatinine 0.76, glucose 127, calcium 9.1, total bilirubin 0.60, AST 14, ALT 31, alkaline phosphatase 57, total protein 7.6, albumin 4.1, prealbumin 29.2. Recently, a noninvasive lower extremity arterial study revealed no evidence of significant arterial occlusive disease in the lower extremities. A venous duplex examination revealed incompetence of the great saphenous veins bilaterally. At this juncture, the patient appears to be progressing well, with a progressive decrease in the size and depth of his wound. Undermining posteriorly persists, and may be problematic in terms of ultimate wound healing. This issue has been discussed with the patient re peatedly. Plan: The patient has been advised to continue conservative treatment measures. These are to include leg elevation. He is to continue sleeping on a flat mattress at night. His legs are to be elevated to heart level, or higher, even during daytime hours. This is to be implemented as much as possible. The patient has been advised to refrain from prolonged, idle standing and sitting. Activity has been encouraged. Implementation of the calf and foot muscle pumps has been explained. Weight loss is also been recommended. We are to continue compression by means of SurePress wraps to both lower extremities. The bulk of the nonviable and necrotic tissue has been removed from the patient's wound by means of excisional and enzymatic debridements. We have initiated the use of a Snap VAC, which the patient appears to be tolerating well. We are to continue the use of the Snap VAC. The patient will return for his routine physician assessment in 1 week, though will reappear for a change of his negative pressure wound therapy device later this week. 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 Once again, we have reinforced the need for compression, elevation, avoidance of prolonged idle sitting, etc. Patient smokes rarely, but has been advised to refrain from his smoking habit. Influenza vaccine was not administered today. Patient stands 5 feet 10 inches tall. He weighs 246 p ounds. His BMI is 35.3, which places him in a class II obesity category. Weight loss has been recommended, in collaboration with the patient's primary care physician has been advised.
== END 2020-06-02 23:59 ==
LOC: WC 08:15
PROVIDERS: PCP Family Medicine; Referring Provider Surgery; Visit Provider Surgery
DX: L02.416 Cutaneous abscess of left lower limb (principal); T14.8XXA Other injury of unspecified body region, initial encounter; Y83.8 Other surgical procedures as the cause of abnormal reaction of the patient, or of later complication, without mention of misadventure at the time of the procedure; M79.89 Other specified soft tissue disorders; R60.0 Localized edema; I83.11 Varicose veins of right lower extremity with inflammation; E66.9 Obesity, unspecified; Z86.72 Personal history of thrombophlebitis; I83.222 Varicose veins of left lower extremity with both ulcer of calf and inflammation; L97.222 Non-pressure chronic ulcer of left calf with fat layer exposed; F17.210 Nicotine dependence, cigarettes, uncomplicated; Z68.35 Body mass index [BMI] 35.0-35.9, adult
CPT/HCPCS: 11042; 11045; 97605; 97607

== ENCOUNTER 2020-07-01 08:15 | Outpatient (RCR) | payer OTHER, SELFPAY ==
[2020-06-03 00:37] VITALS: BP 131/83; PULSE 114; RESP 18; TEMP 36.4
[2020-06-03 08:12] VITALS: BP 120/69; PULSE 94; RESP 18; TEMP 36.6; BMI 35.3
--- NOTE | 2020-06-03 08:38 | PCM.WC.HP ---
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 Current Visit: Yes Code(s): I87.093 - Postthrombotic syndrome with other complications of bilateral lower extremity (7) Hyperpigmentation of skin Status: Chronic Current Visit: Yes Code(s): L81.9 - Disorder of pigmentation, unspecified (8) Lipodermatosclerosis of both lower extremities Status: Chronic Current Visit: Yes Code(s): I83.11 - Varicose veins of right lower extremity with inflammation; I83.12 - Varicose veins of left lower extremity with inflammation (9) Diallo phlebectatica Status: Chronic Current Visit: Yes (10) Wound of left leg Status: Chronic Current Visit: Yes Qualifiers: Encounter type: subsequent encounter Code(s): S81.802A - Unspecified open wound, left lower leg, initial encounter (11) Necrosis Status: Chronic Current Visit: Yes Code(s): I96 - Gangrene, not elsewhere classified (12) Obesity (BMI 35.0-39.9 without comorbidity) Status: Chronic Current Visit: Yes Code(s): E66.9 - Obesity, unspecified (13) Personal history of thrombophlebitis Status: Chronic Current Visit: Yes Code(s): Z86.72 - Personal history of thrombophlebitis History of Present Illness Date of Service: 06/03/20 Chief Complaint: Open wound of the left lateral calf, status-post incision and drainage of abscess History of Wound: This is a 59-year-old male who was admitted to [facility] approximately 1 month prior to presentation with a large abscess on the left lateral calf. On February 11, 2020, he underwent incision and drainage of the abscess. He spent approximately 5 days in the hospital, and was subsequently discharged on Augmentin. The patient claims to sleep on a flat mattress at night. However, he suffers from chronic swelling and edema in both lower extremities. Additionally, he has a history of superficial thrombophlebitis in the left lower extremity, and has undergone a prior left lower extremity vein stripping procedure in the remote past. Patient has developed chronic skin changes in his lower extremities, which include hyperpigmentation and lipodermatosclerosis in the gaiter areas bilaterally. Patient is also noted to have diallo phlebectatica at ankle level bilaterally. The patient claims to be relatively active. Management the time of presentation included the use of a wet-to-dry gauze packing daily. It is noted that patient underwent a venous duplex examination during his hospitalization recently, that was negative for any evidence of thrombosis, but indicated valvular incompetence of the deep and superficial venous systems bilaterally. 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 Home Medications: Ambulatory Orders Medication Instructions Recorded Augmentin 875-125 Tablet 875 mg PO BID 03/18/20 Rosuvastatin Calcium [Crestor] 20 mg PO DAILY 03/18/20 - Family History Paternal - - Patient's father at the age of 72 with a history of cerebrovascular accident and venous disease. Patient's mother at the age of 90, of old age. Smoking Status: Light Smoker (<10/day) Tobacco Use: Cigarettes Review of Systems Constitutional: Denies: Chills, Fever, Weight Change Eyes: Denies: Pain, Vision Change HEENT: Denies: Difficulty Hearing, Difficulty Swallowing, Sinus Congestion Cardiovascular: Denies: Chest Pain, Palpitations Respiratory: Denies: Cough, Shortness of Breath Gastrointestinal: Denies: Diarrhea, Nausea, Vomiting Genitourinary: Denies: Dysuria, Hematuria Endocrine: Denies: Heat/ Cold Intolerance, Polydipsia, Polyuria Hematologic/ Lymphatic: Denies: Easy Bruising, Easy Bleeding - Physical Exam Vital Signs Temp Pulse Resp BP 97.8 F 94 18 120/69 06/03/20 08:12 06/03/20 08:12 06/03/20 08:12 06/03/20 08:12 General: Alert, Oriented x3, Cooperative, No apparent distress, Well developed, Well nourished HEENT: Atraumatic, PERRLA, EOMI, Normocephalic Oral: Moist Mucosa Neck: No JVD Lungs: Normal air movement Abdomen: Non-Distended Extremities: No clubbing, No cyanosis, No Calf Tenderness, - - Mild swelling and edema persist in the patient's left lower extremity. Chronic venous changes are also present. These include hyperpigmentation and lipodermatosclerosis in the mid calf and gaiter area. There are multiple large varicose veins as well. The surgical wound on the left lateral calf persists. It is smaller in size. There has been improvement. There is a small amount of bioburden. There is no sign of infection or cellulitis. A small amount of undermining persists posteriorly. Skin: No rashes Wound Measurements and Assessment WC - Nurse 1 - General Ulcer Measurement Start: 06/03/20 08:12 Freq: Status: Active Protocol: Activity Type Activity Date Activity User E-Sign Co-Sign Detail Recorded Client Recorded Date Recorded By Document 06/03/20 08:12 PL [id number] 06/03/20 08:21 PL 06/03/20 08:12 Wound Center Nurse 1 [Ulcer Assessment] #1 Lateral LLE -Combined with other wound No -Current Size (cm) - Length 3 -Current Size (cm) - Width 3 -Current Size (cm) - Depth 0.3 -Total Square Cm 9 -Photo Taken No -Tunneling Yes -Tunneling Position (O'clock) 3 -Tunneling Distance (cm) 0.3 -Undermining/Tunneling No -Exudate Amt Medium -Exudate Type Serosanguineous -Granulation Amt Large (67-100%) -Granulation Quality [place] -Slough/Fibrin Yes -Necrosis Amt Small (1-33%) -Texture (Lois-wound Skin Appearance) No Abnormality -Moisture (Lois-wound Skin Appearance No Abnormality ) -Color (Lois-wound Skin Appearance) No Abnormality -Temperature (Lois-wound Skin No Abnormality Appearance) (Pt Warm) -Ulcer Cleansing Rinsed/ Irrigated with Saline -Foul Odor after Cleansing No -Anesthetic Used 4% Lidocaine Solution WC - Nurse 2 - General Ulcer CM Notes Start: 06/03/20 08:12 Freq: Status: Active Protocol: Activity Type Activity Date Activity User E-Sign Co-Sign Detail Recorded Client Recorded Date Recorded By Document 06/03/20 08:29 PL [id number] 06/03/20 08:35 PL 06/03/20 08:29 Wound Center Nurse 2 [Procedure/Treatment] -Time 08:30 -Correct Patient Yes -Correct Side, Site, Position Yes -Correct Procedure Yes -Procedure Performed Yes -Type of Procedure Debridement -Clinical Debridement Subcutaneous -Tissue Removed Subcutaneous -Post Debridement (cm) - Length 3 -Post Debridement (cm) - Width 3 -Post Debridement (cm) - Depth 0.3 -Total Square (Post) (cm) 9 -Area of Debridement (cm) - Length 3 -Area of Debridement (cm) - Width 3 -Total Square (Area) (cm) 9 -Tunneling No -Wound/Ulcer Outcome Not Healed -Ulcer Cleansing Rinsed/ Irrigated with Saline -Foul Odor after Cleansing No -Bioengineered Tissue No -Debridement - Subq, 1st 20sq cm Yes [See Physician Procedure note for Specifics] Pain Scale: 0-10 Numeric [Pain] -Is Patient Pain Free? Yes Musculoskeletal: No Muscle Wasting Neurological: Cranial nerves II-XII grossly intact, Neuro grossly intact Psych/Mental Status: Normal Affect, Appropriate, Alert and oriented to time, place, person, mood and affect Debridement Note Post-Debridement Measurements/Treatment - Nurse 2 - General Ulcer CM Notes Start: 06/03/20 08:12 Freq: Status: Active Protocol: Activity Type Activity Date Activity User E-Sign Co-Sign Detail Recorded Client Recorded Date Recorded By Document 06/03/20 08:29 PL [id number] 06/03/20 08:35 PL 06/03/20 08:29 Wound Center Nurse 2 #1 Lateral LLE -Time 08:30 -Correct Patient Yes -Correct Side, Site, Position Yes -Correct Procedure Yes -Procedure Performed Yes -Type of Procedure Debridement -Clinical Debridement Subcutaneous -Tissue Removed Subcutaneous -Post Debridement (cm) - Length 3 -Post Debridement (cm) - Width 3 -Post Debridement (cm) - Depth 0.3 -Total Square (Post) (cm) 9 -Area of Debridement (cm) - Length 3 -Area of Debridement (cm) - Width 3 -Total Square (Area) (cm) 9 -Tunneling No -Wound/Ulcer Outcome Not Healed -Ulcer Cleansing Rinsed/ Irrigated with Saline -Foul Odor after Cleansing No -Bioengineered Tissue No -Debridement - Subq, 1st 20sq cm Yes Pain Scale: 0-10 Numeric Is Patient Pain Free? Yes Laterality: Left - Lateral calf Type of Debridement: Excisional debridement Anesthesia Used: 5% Lidocaine Gel Depth: Down to and including healthy tissue, in the subcutaneous layer Percentage of wound debrided: 100 Instrument Used: 5mm curette Severity: Fat Layer Exposed Amount of bleeding with debridement: Mild Bleeding Controlled with: Compression and gauze Patient tolerated procedure well Slight undermining persists posteriorly. Otherwise, the wound margins are well beveled over approximately 80 to 85% of the patient's wound. 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 He was hospitalized for approximately 5 days, and underwent incision and drainage of the abscess. He presented here for definitive management. At the time of his initial presentation, patient was noted to have a large amount of frankly necrotic and nonviable tissue present at the site of his former abscess, with some tunneling as well. The patient also suffers from longstanding swelling and edema of his lower extremities, and is known to have a history of superficial thrombophlebitis in the left lower extremity previously. Physical findings suggest longstanding chronic venous insufficiency. The patient has undergone a battery of diagnostic testing. An x-ray of the left tibia/fibula shows soft tissue changes, but no other abnormalities. Laboratory results from 03/20/2020 are as follows: White blood count 6.0, hemoglobin 14.4, hematocrit 44.7, platelets 247,000, sodium 137, potassium 4.1, chloride 104, BUN 20, creatinine 0.76, glucose 127, calcium 9.1, total bilirubin 0.60, AST 14, ALT 31, alkaline phosphatase 57, total protein 7.6, albumin 4.1, prealbumin 29.2. Recently, a noninvasive lower extremity arterial study revealed no evidence of significant arterial occlusive disease in the lower extremities. A venous duplex examination revealed incompetence of the great saphenous veins bilaterally. At this juncture, the patient appears to be progressing well, with a progressive decrease in the size and depth of his wound. Undermining posteriorly persists, and may be problematic in terms of ultimate wound healing. This issue has been discussed with the patient repeatedly. Plan: The patient has been advised to continue conservative treatment measures. These are to include leg elevation. He is to continue sleeping on a flat mattress at night. His legs are to be elevated to heart level, or higher, even during daytime hours. This is to be implemented as much as possible. The patient has been advised to refrain from prolonged, idle standing and sitting. Activity has been encouraged. Implementation of the calf and foot muscle pumps has been explained. Weight loss is also been recommended. We are to continue compression by means of SurePress wraps to both lower extremities. The bulk of the nonviable and necrotic tissue has been removed from the patient's wound by means of excisional and enzymatic debridements. We have initiated the use of a Snap VAC, which the patient appears to be tolerating well. We are to continue the use of the Snap VAC. The patient will return for his routine physician assessment in 1 week, though will reappear for a change of his negative pressure wound therapy device later this week. 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 Once again, we have reinforced the need for compression, elevation, avoidance of prolonged idle sitting, etc. We will continue to monitor the patient's wound serially, and to assess the patient's progress. We have discussed the options with regard to the undermining on the posterior aspect of the patient's wound. Ultimately, the patient may require surgical unroofing of the area, as the undermined area has continued to persist, with only minimal improvement. This issue has been discussed with the patient in detail, and decisions in this regard will be forthcoming within the next several weeks. Patient smokes rarely, but has been advised to refrain from his smoking habit. Influenza vaccine was not administered today. Patient stands 5 feet 10 inches tall. He weighs 246 pounds. His BMI is 35.3, which places him in a class II obesity category. Weight loss has been recommended, in collaboration with the patient's primary care physician has been advised.
[2020-06-10 08:04] VITALS: BP 148/88; PULSE 91; RESP 16; TEMP 36.3; BMI 35.3
--- NOTE | 2020-06-10 08:40 | PCM.WC.HP ---
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 Current Visit: Yes Code(s): I87.093 - Postthrombotic syndrome with other complications of bilateral lower extremity (7) Hyperpigmentation of skin Status: Chronic Current Visit: Yes Code(s): L81.9 - Disorder of pigmentation, unspecified (8) Lipodermatosclerosis of both lower extremities Status: Chronic Current Visit: Yes Code(s): I83.11 - Varicose veins of right lower extremity with inflammation; I83.12 - Varicose veins of left lower extremity with inflammation (9) Diallo phlebectatica Status: Chronic Current Visit: Yes (10) Wound of left leg Status: Chronic Current Visit: Yes Qualifiers: Encounter type: subsequent encounter Code(s): S81.802A - Unspecified open wound, left lower leg, initial encounter (11) Necrosis Status: Chronic Current Visit: Yes Code(s): I96 - Gangrene, not elsewhere classified (12) Obesity (BMI 35.0-39.9 without comorbidity) Status: Chronic Current Visit: Yes Code(s): E66.9 - Obesity, unspecified (13) Personal history of thrombophlebitis Status: Chronic Current Visit: Yes Code(s): Z86.72 - Personal history of thrombophlebitis History of Present Illness Date of Service: 06/10/20 Chief Complaint: Open wound of the left lateral calf, status-post incision and drainage of abscess History of Wound: This is a 59-year-old male who was admitted to [facility] approximately 1 month prior to presentation with a large abscess on the left lateral calf. On February 11, 2020, he underwent incision and drainage of the abscess. He spent approximately 5 days in the hospital, and was subsequently discharged on Augmentin. The patient claims to sleep on a flat mattress at night. However, he suffers from chronic swelling and edema in both lower extremities. Additionally, he has a history of superficial thrombophlebitis in the left lower extremity, and has undergone a prior left lower extremity vein stripping procedure in the remote past. Patient has developed chronic skin changes in his lower extremities, which include hyperpigmentation and lipodermatosclerosis in the gaiter areas bilaterally. Patient is also noted to have diallo phlebectatica at ankle level bilaterally. The patient claims to be relatively active. Management the time of presentation included the use of a wet-to-dry gauze packing daily. It is noted that patient underwent a venous duplex examination during his hospitalization recently, that was negative for any evidence of thrombosis, but indicated valvular incompetence of the deep and superficial venous systems bilaterally. 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 Home Medications: Ambulatory Orders Medication Instructions Recorded Augmentin 875-125 Tablet 875 mg PO BID 03/18/20 Rosuvastatin Calcium [Crestor] 20 mg PO DAILY 03/18/20 - Family History Paternal - - Patient's father at the age of 72 with a history of cerebrovascular accident and venous disease. Patient's mother at the age of 90, of old age. Smoking Status: Light Smoker (<10/day) Tobacco Use: Cigarettes Review of Systems Constitutional: Denies: Chills, Fever, Weight Change Eyes: Denies: Pain, Vision Change HEENT: Denies: Difficulty Hearing, Difficulty Swallowing, Sinus Congestion Cardiovascular: Denies: Chest Pain, Palpitations Respiratory: Denies: Cough, Shortness of Breath Gastrointestinal: Denies: Diarrhea, Nausea, Vomiting Genitourinary: Denies: Dysuria, Hematuria Endocrine: Denies: Heat/ Cold Intolerance, Polydipsia, Polyuria Hematologic/ Lymphatic: Denies: Easy Bruising, Easy Bleeding - Physical Exam Vital Signs Temp Pulse Resp BP 97.3 F L 91 16 148/88 H 06/10/20 08:04 06/10/20 08:04 06/10/20 08:04 06/10/20 08:04 General: Alert, Oriented x3, Cooperative, No apparent distress, Well developed, Well nourished HEENT: Atraumatic, PERRLA, EOMI, Normocephalic Oral: Moist Mucosa Neck: No JVD Lungs: Normal air movement Abdomen: Non-Distended Extremities: No clubbing, No cyanosis, No Calf Tenderness, - - No significant swelling or edema are noted in the patient's left lower extremity. The wound on the left lateral calf persists. It remains approximately the same dimensions as previously noted 1 week ago. The base of the wound is generally pink and healthy in appearance, with a moderate amount of bioburden. Slight undermining is noted posteriorly, though appearing to have diminished. There is no sign of infection or cellulitis. Slight excoriation from the negative pressure wound dressing is noted medially. Wound Measurements and Assessment WC - Nurse 1 - General Ulcer Measurement Start: 06/03/20 08:12 Freq: Status: Active Protocol: Activity Type Activity Date Activity User E-Sign Co-Sign Detail Recorded Client Recorded Date Recorded By Document 06/10/20 08:04 [email or web address] [id number] 06/10/20 08:06 MELISSA 06/10/20 08:04 Wound Center Nurse 1 [Ulcer Assessment] #1 Lateral LLE -Combined with other wound No -Current Size (cm) - Length 3.4 -Current Size (cm) - Width 3.5 -Current Size (cm) - Depth 0.6 -Total Square Cm 11.90 -Photo Taken No -Epithelialization None Present -Tunneling No -Undermining/Tunneling No -Circular Undermining No -Exudate Amt Medium -Exudate Type Serosanguineous -Wound Margin Flat & Intact -Granulation Amt Large (67-100%) -Granulation Quality Red -Slough/Fibrin Yes -Necrosis Amt Small (1-33%) -Necrotic Tissue Type Adherent Slough -Structure Exposed N/A -Texture (Lois-wound Skin Appearance) Assessed, Localized Edema -Moisture (Lois-wound Skin Appearance Assessed,Dry/ ) Scaly -Color (Lois-wound Skin Appearance) Assessed -Temperature (Lois-wound Skin No Abnormality Appearance) (Pt Warm) -Tenderness on Palpation (Lois-wound No Skin Appearance) -Ulcer Cleansing Wound Cleanser -Foul Odor after Cleansing No -Anesthetic Used 4% Lidocaine Solution [Edema Assessment] -Lower Limb Edema Present Yes -Left Calf (cm) 42.2 -Left Ankle (cm) 26.3 Musculoskeletal: No Muscle Wasting Neurological: Cranial nerves II-XII grossly intact, Neuro grossly intact Psych/Mental Status: Normal Affect, Appropriate, Alert and oriented to time, place, person, mood and affect Debridement Note Post-Debridement Measurements/Treatment WC - Nurse 2 - General Ulcer CM Notes Start: 06/03/20 08:12 Freq: Status: Active Protocol: Activity Type Activity Date Activity User E-Sign Co-Sign Detail Recorded Client Recorded Date Recorded By Document 06/03/20 08:29 [address] [id number] 06/03/20 08:35 PL 06/03/20 08:29 Wound Center Nurse 2 #1 Lateral LLE -Time 08:30 -Correct Patient Yes -Correct Side, Site, Position Yes -Correct Procedure Yes -Procedure Performed Yes -Type of Procedure Debridement -Clinical Debridement Subcutaneous -Tissue Removed Subcutaneous -Post Debridement (cm) - Length 3 -Post Debridement (cm) - Width 3 -Post Debridement (cm) - Depth 0.3 -Total Square (Post) (cm) 9 -Area of Debridement (cm) - Length 3 -Area of Debridement (cm) - Width 3 -Total Square (Area) (cm) 9 -Tunneling No -Wound/Ulcer Outcome Not Healed -Ulcer Cleansing Rinsed/ Irrigated with Saline -Foul Odor after Cleansing No -Bioengineered Tissue No -Debridement - Subq, 1st 20sq cm Yes Pain Scale: 0-10 Numeric Is Patient Pain Free? Yes WC - Nurse 3 - General Ulcer D/C NN Start: 06/03/20 08:12 Freq: Status: Active Protocol: Activity Type Activity Date Activity User E-Sign Co-Sign Detail Recorded Client Recorded Date Recorded By Document 09/01/20 08:52 PL [id number] 06/03/20 08:55 PL 06/03/20 08:52 Wound Care Nurse 3 #1 Lateral LLE -Ulcer Cleansing Rinsed/ Irrigated with Saline -Foul Odor after Cleansing No -Negative Pressure Wound Therapy Continue -Setting (mmHg) 125 -Negative Pressure is Continuous -NPWT Application Charge ($) NPWT </= 50 sq cm (disp) Left -Compression Wrap Surepress ($) Pain Scale: 0-10 Numeric Is Patient Pain Free? Yes WC - Visit Discharge Discharge Condition Stable Ambulatory Status Ambulatory Clinical Summary of Care Provided Yes Laterality: Left - Lateral calf Type of Debridement: Excisional debridement Anesthesia Used: 5% Lidocaine Gel Depth: Down to and including healthy tissue, in the subcutaneous layer Percentage of wound debrided: 100 Instrument Used: 5mm curette Tissue Removed: Bioburden Severity: Fat Layer Exposed Amount of bleeding with debridement: Mild Bleeding Controlled with: Compression and gauze Patient tolerated procedure well Assessment/Plan Active Problems Leg swelling (Chronic) Leg edema (Chronic) Abscess of left leg (Chronic) Surgical wound present (Chronic) Chronic venous insufficiency (Chronic) 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 He was hospitalized for approximately 5 days, and underwent incision and drainage of the abscess. He presented here for definitive management. At the time of his initial presentation, patient was noted to have a large amount of frankly necrotic and nonviable tissue present at the site of his former abscess, with some tunneling as well. The patient also suffers from longstanding swelling and edema of his lower extremities, and is known to have a history of superficial thrombophlebitis in the left lower extremity previously. Physical findings suggest longstanding chronic venous insufficiency. The patient has undergone a battery of diagnostic testing. An x-ray of the left tibia/fibula shows soft tissue changes, but no other abnormalities. Laboratory results from 03/20/2020 are as follows: White blood count 6.0, hemoglobin 14.4, hematocrit 44.7, platelets 247,000, sodium 137, potassium 4.1, chloride 104, BUN 20, creatinine 0.76, glucose 127, calcium 9.1, total bilirubin 0.60, AST 14, ALT 31, alkaline phosphatase 57, total protein 7.6, albumin 4.1, prealbumin 29.2. Recently, a noninvasive lower extremity arterial study revealed no evidence of significant arterial occlusive disease in the lower extremities. A venous duplex examination revealed incompetence of the great saphenous veins bilaterally. At this juncture, the patient appears to be progressing well, with a progressive decrease in the size and depth of his wound. Undermining posteriorly persists, and may be problematic in terms of ultimate wound healing. This issue has been discussed with the patient repeatedly. Plan: The patient has been advised to continue conservative treatment measures. These are to include leg elevation. He is to continue sleeping on a flat mattress at night. His legs are to be elevated to heart level, or higher, even during daytime hours. This is to be implemented as much as possible. The patient has been advised to refrain from prolonged, idle standing and sitting. Activity has been encouraged. Implementation of the calf and foot muscle pumps has been explained. Weight loss is also been recommended. We are to continue compression by means of SurePress wraps to both lower extremities. The nonviable and necrotic tissue has been removed from the patient's wound by means of excisional and enzymatic debridements. We have initiated the use of a Snap VAC, which the patient appears to be tolerating well. We are to continue the use of the Snap VAC. The patient will return for his routine physician assessment in 1 week, though will reappear for a change of his negative pressure wound therapy device later this week. 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 Once again, we have reinforced the need for compression, elevation, avoidance of prolonged idle sitting, etc. We will continue to monitor the patient's wound serially, and to assess the patient's progress. We have discussed the options with regard to the undermining on the posterior aspect of the patient's wound. Ultimately, the patient may require surgical unroofing of the area, as the undermined area has continued to persist. However, the undermining appears to be diminishing, and will be monitored serially. This issue has been discussed with the patient in detail, and decisions in this regard will be forthcoming within the next several weeks. Patient smokes rarely, but has been advised to refrain from his smoking habit. Influenza vaccine was not administered today. Patient stands 5 feet 10 inches tall. He weighs 246 pounds. His BMI is 35.3, which places him in a class II obesity category. Weight loss has been recommended, in collaboration with the patient's primary care physician has been advised.
[2020-06-17 08:06] VITALS: BP 156/91; PULSE 103; RESP 20; TEMP 36.6; BMI 35.3
--- NOTE | 2020-06-17 08:24 | HP.PCM_ITS ---
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 Current Visit: Yes Code(s): I87.093 - Postthrombotic syndrome with other complications of bilateral lower extremity (7) Hyperpigmentation of skin Status: Chronic Current Visit: Yes Code(s): L81.9 - Disorder of pigmentation, unspecified (8) Lipodermatosclerosis of both lower extremities Status: Chronic Current Visit: Yes Code(s): I83.11 - Varicose veins of right lower extremity with inflammation; I83.12 - Varicose veins of left lower extremity with inflammation (9) Diallo phlebectatica Status: Chronic Current Visit: Yes (10) Wound of left leg Status: Chronic Current Visit: Yes Qualifiers: Encounter type: subsequent encounter Code(s): S81.802A - Unspecified open wound, left lower leg, initial encounter (11) Necrosis Status: Chronic Current Visit: Yes Code(s): I96 - Gangrene, not elsewhere classified (12) Obesity (BMI 35.0-39.9 without comorbidity) Status: Chronic Current Visit: Yes Code(s): E66.9 - Obesity, unspecified (13) Personal history of thrombophlebitis Status: Chronic Current Visit: Yes Code(s): Z86.72 - Personal history of thrombophlebitis History of Present Illness Date of Service: 06/17/20 Chief Complaint: Open wound of the left lateral calf, status-post incision and drainage of abscess History of Wound: This is a 59-year-old male who was admitted to [facility] approximately 1 month prior to presentation with a large abscess on the left lateral calf. On February 11, 2020, he underwent incision and drainage of the abscess. He spent approximately 5 days in the hospital, and was subsequently discharged on Augmentin. The patient claims to sleep on a flat mattress at night. However, he suffers from chronic swelling and edema in both lower extremities. Additionally, he has a history of superficial thrombophlebitis in the left lower extremity, and has undergone a prior left lower extremity vein stripping procedure in the remote past. Patient has developed chronic skin changes in his lower extremities, which include hyperpigmentation and lipodermatosclerosis in the gaiter areas bilaterally. Patient is also noted to have dialol phlebectatica at ankle level bilaterally. The patient claims to be relatively active. Management the time of presentation included the use of a wet-to-dry gauze packing daily. It is noted that patient underwent a venous duplex examination during his hospitalization recently, that was negative for any evidence of thrombosis, but indicated valvular incompetence of the deep and superficial venous systems bilaterally. 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 Home Medications: Ambulatory Orders Medication Instructions Recorded Augmentin 875-125 Tablet 875 mg PO BID 03/18/20 Rosuvastatin Calcium [Crestor] 20 mg PO DAILY 03/18/20 - Family History Paternal - - Patient's father at the age of 72 with a history of cerebrovascular accident and venous disease. Patient's mother at the age of 90, of old age. Smoking Status: Light Smoker (<10/day) Tobacco Use: Cigarettes Review of Systems Constitutional: Denies: Chills, Fever, Weight Change Eyes: Denies: Pain, Vision Change HEENT: Denies: Difficulty Hearing, Difficulty Swallowing, Sinus Congestion Cardiovascular: Denies: Chest Pain, Palpitations Respiratory: Denies: Cough, Shortness of Breath Gastrointestinal: Denies: Diarrhea, Nausea, Vomiting Genitourinary: Denies: Dysuria, Hematuria Endocrine: Denies: Heat/ Cold Intolerance, Polydipsia, Polyuria Hematologic/ Lymphatic: Denies: Easy Bruising, Easy Bleeding - Physical Exam Vital Signs Temp Pulse Resp BP 97.8 F 103 H 20 H 156/91 H 06/17/20 08:06 06/17/20 08:06 06/17/20 08:06 06/17/20 08:06 General: Alert, Oriented x3, Cooperative, No apparent distress, Well developed, Well nourished HEENT: Atraumatic, PERRLA, EOMI, Normocephalic Oral: Moist Mucosa Neck: No JVD Lungs: Normal air movement Abdomen: Non-Distended Extremities: No clubbing, No cyanosis, No Calf Tenderness, - - Only minor swelling and edema noted in the patient's left lower extremity. The wound on the left lateral calf persists, but appears to be smaller in size. Dimensions are documented elsewhere. There is no sign of infection or cellulitis. There remains a very small amount of undermining posteriorly. The flap overlying the undermined area is excoriated, likely due to irritation from the negative pressure wound therapy drapes. There is a mild amount of bioburden. Skin: No rashes Wound Measurements and Assessment WC - Nurse 1 - General Ulcer Measurement Start: 06/03/20 08:12 Freq: Status: Active Protocol: Activity Type Activity Date Activity User E-Sign Co-Sign Detail Recorded Client Recorded Date Recorded By Document 06/17/20 08:06 [id number] 06/17/20 08:13 DL 06/17/20 08:06 Wound Center Nurse 1 [Ulcer Assessment] #1 Lateral LLE -Current Size (cm) - Length 3 -Current Size (cm) - Width 2.6 -Current Size (cm) - Depth 0.3 -Total Square Cm 7.8 -Photo Taken No -Exudate Amt Medium -Exudate Type Serosanguineous -Wound Margin Thickened & Rolled Under -Granulation Amt Large (67-100%) -Granulation Quality Red -Necrosis Amt Small (1-33%) -Necrotic Tissue Type Adherent Slough -Texture (Lois-wound Skin Appearance) Scarring -Moisture (Lois-wound Skin Appearance No Abnormality ) -Color (Lois-wound Skin Appearance) Hemosiderin Staining -Temperature (Lois-wound Skin No Abnormality Appearance) (Pt Warm) -Tenderness on Palpation (Lois-wound No Skin Appearance) -Ulcer Cleansing Wound Cleanser -Foul Odor after Cleansing No -Anesthetic Used 4% Lidocaine Solution [Edema Assessment] -Left Calf (cm) 44.8 -Left Ankle (cm) 27.7 Musculoskeletal: No Muscle Wasting Neurological: Cranial nerves II-XII grossly intact, Neuro grossly intact Psych/Mental Status: Normal Affect, Appropriate, Alert and oriented to time, place, person, mood and affect Debridement Note Post-Debridement Measurements/Treatment WC - Nurse 2 - General Ulcer CM Notes Start: 06/03/20 08:12 Freq: Status: Active Protocol: Activity Type Activity Date Activity User E-Sign Co-Sign Detail Recorded Client Recorded Date Recorded By Document 06/03/20 08:29 PL [id number] 06/03/20 08:35 PL Document 06/10/20 11:21 PL [id number] 06/10/20 11:24 PL 06/03/20 06/10/20 08:29 11:21 Wound Center Nurse 2 #1 Lateral LLE -Time 08:30 08:33 -Correct Patient Yes Yes -Correct Side, Site, Position Yes Yes -Correct Procedure Yes Yes -Procedure Performed Yes Yes -Type of Procedure Debridement Debridement -Clinical Debridement Subcutaneous Subcutaneous -Tissue Removed Subcutaneous Subcutaneous -Post Debridement (cm) - Length 3 3.2 -Post Debridement (cm) - Width 3 3 -Post Debridement (cm) - Depth 0.3 0.2 -Total Square (Post) (cm) 9 9.6 -Area of Debridement (cm) - Length 3 3.2 -Area of Debridement (cm) - Width 3 3 -Total Square (Area) (cm) 9 9.6 -Tunneling No No -Undermining/Tunneling No -Circular Undermining No -Wound/Ulcer Outcome Not Healed Not Healed -Ulcer Cleansing Rinsed/ Rinsed/ Irrigated with Irrigated with Saline Saline -Foul Odor after Cleansing No No -Bioengineered Tissue No No -Debridement - Subq, 1st 20sq cm Yes No Pain Scale: 0-10 Numeric Is Patient Pain Free? Yes Yes KISHA - Nurse 3 - General Ulcer D/C NN Start: 09/01/20 08:12 Freq: Status: Active Protocol: Activity Type Activity Date Activity User E-Sign Co-Sign Detail Recorded Client Recorded Date Recorded By Document 06/03/20 08:52 PL [id number] 06/03/20 08:55 PL Document 06/10/20 11:21 PL [id number] 06/10/20 11:24 PL 06/03/20 06/10/20 08:52 11:21 Wound Care Nurse 3 #1 Lateral LLE -Ulcer Cleansing Rinsed/ Rinsed/ Irrigated with Irrigated with Saline Saline -Foul Odor after Cleansing No No -Negative Pressure Wound Therapy Continue Continue -Setting (mmHg) 125 125 -Negative Pressure is Continuous Continuous -NPWT Application Charge ($) NPWT </= 50 sq NPWT </= 50 sq cm (disp) cm (disp) Left -Compression Wrap Surepress ($) Surepress ($) Pain Scale: 0-10 Numeric Is Patient Pain Free? Yes Yes WC - Visit Discharge Discharge Condition Stable Stable Ambulatory Status Ambulatory Ambulatory Transportation Private Auto Clinical Summary of Care Provided Yes Yes Laterality: Left - Lateral calf Type of Debridement: Excisional debridement Anesthesia Used: 5% Lidocaine Gel Depth: Down to and including healthy tissue, in the subcutaneous layer Percentage of wound debrided: 100 Instrument Used: 5mm curette Tissue Removed: Bioburden Severity: Fat Layer Exposed Amount of bleeding with debridement: Mild Bleeding Controlled with: Compression and gauze Patient tolerated procedure well Assessment/Plan Active Problems Leg swelling (Chronic) Leg edema (Chronic) Abscess of left leg (Chronic) Surgical wound present (Chronic) Chronic venous insufficiency (Chronic) 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 He was hospitalized for approximately 5 days, and underwent incision and drainage of the abscess. He presented here for definitive management. At the time of his initial presentation, the patient was noted to have a large amount of frankly necrotic and nonviable tissue present at the site of his former abscess, with some tunneling as well. The patient also suffers from longstanding swelling and edema of his lower extremities, and is known to have a history of superficial thrombophlebitis in the left lower extremity previously. Physical findings suggest longstanding chronic venous insufficiency. The patient has undergone a battery of diagnostic testing. An x-ray of the left tibia/fibula shows soft tissue changes, but no other abnormalities. Laboratory results from 03/20/2020 are as follows: White blood count 6.0, hemoglobin 14.4, hematocrit 44.7, platelets 247,000, sodium 137, potassium 4.1, chloride 104, BUN 20, creatinine 0.76, glucose 127, calcium 9.1, total bilirubin 0.60, AST 14, ALT 31, alkaline phosphatase 57, total protein 7.6, albumin 4.1, prealbumin 29.2. Recently, a noninvasive lower extremity arterial study revealed no evidence of significant arterial occlusive disease in the lower extremities. A venous duplex examination revealed incompetence of the great saphenous veins bilaterally. At this juncture, the patient appears to be progressing well, with a progressive decrease in the size and depth of his wound. Undermining posteriorly persists, and may be problematic in terms of ultimate wound healing. This issue has been discussed with the patient repeatedly. Plan: The patient has been advised to continue conservative treatment measures. These are to include leg elevation. He is to continue sleeping on a flat mattress at night. His legs are to be elevated to heart level, or higher, even during daytime hours. This is to be implemented as much as possible. The patient has been advised to refrain from prolonged, idle standing and sitting. Activity has been encouraged. Implementation of the calf and foot muscle pumps has been explained. Weight loss is also been recommended. We are to continue compression by means of SurePress wraps to both lower extremities. The nonviable and necrotic tissue has been removed from the patient's wound by means of excisional and enzymatic debridements. We have initiated the use of a Snap VAC. However, we are to take a short hiatus from the negative pressure wound therapy, given the excoriation adjacent to the wound margins posteriorly, likely due to the adhesive drapes. We are to transition to the use of Promogran topically. This will be packed within the undermined area as well, which appears to be diminishing in size. The patient will return for his routine physician assessment in 1 week. 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 Once again, we have reinforced the need for compression, elevation , avoidance of prolonged idle sitting, etc. We will continue to monitor the patient's wound serially, and to assess the patient's progress. We have discussed the options with regard to the undermining on the posterior aspect of the patient's wound. Ultimately, the patient may require surgical unroofing of the area, as the undermined area has continued to persist. However, the undermining appears to be diminishing, and will be monitored serially. This issue has been discussed with the patient in detail, and decisions in this regard will be forthcoming within the next several weeks. Patient smokes rarely, but has been advised to refrain from his smoking habit. Influenza vaccine was not administered today. Patient stands 5 feet 10 inches tall. He weighs 246 pounds. His BMI is 35.3, which places him in a class II obesity category. Weight loss has been recommended, in collaboration with the patient's primary care physician has been advised.
[2020-06-24 08:22] VITALS: BP 145/81; PULSE 99; RESP 18; TEMP 36.6; BMI 35.3
--- NOTE | 2020-06-24 08:44 | HP.PCM_ITS ---
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 Current Visit: Yes Code(s): I87.093 - Postthrombotic syndrome with other complications of bilateral lower extremity (7) Hyperpigmentation of skin Status: Chronic Current Visit: Yes Code(s): L81.9 - Disorder of pigmentation, unspecified (8) Lipodermatosclerosis of both lower extremities Status: Chronic Current Visit: Yes Code(s): I83.11 - Varicose veins of right lower extremity with inflammation; I83.12 - Varicose veins of left lower extremity with inflammation (9) Diallo phlebectatica Status: Chronic Current Visit: Yes (10) Wound of left leg Status: Chronic Current Visit: Yes Qualifiers: Encounter type: subsequent encounter Code(s): S81.802A - Unspecified open wound, left lower leg, initial encounter (11) Necrosis Status: Chronic Current Visit: Yes Code(s): I96 - Gangrene, not elsewhere classified (12) Obesity (BMI 35.0-39.9 without comorbidity) Status: Chronic Current Visit: Yes Code(s): E66.9 - Obesity, unspecified (13) Personal history of thrombophlebitis Status: Chronic Current Visit: Yes Code(s): Z86.72 - Personal history of thrombophlebitis History of Present Illness Date of Service: 06/24/20 Chief Complaint: Open wound of the left lateral calf, status-post incision and drainage of abscess History of Wound: This is a 59-year-old male who was admitted to [facility] approximately 1 month prior to presentation with a large abscess on the left lateral calf. On February 11, 2020, he underwent incision and drainage of the abscess. He spent approximately 5 days in the hospital, and was subsequently discharged on Augmentin. The patient claims to sleep on a flat mattress at night. However, he suffers from chronic swelling and edema in both lower extremities. Additionally, he has a history of superficial thrombophlebitis in the left lower extremity, and has undergone a prior left lower extremity vein stripping procedure in the remote past. Patient has developed chronic skin changes in his lower extremities, which include hyperpigmentation and lipodermatosclerosis in the gaiter areas bilaterally. Patient is also noted to have diallo phlebectatica at ankle level bilaterally. The patient claims to be relatively active. Management the time of presentation included the use of a wet-to-dry gauze packing daily. It is noted that patient underwent a venous duplex examination during his hospitalization recently, that was negative for any evidence of thrombosis, but indicated valvular incompetence of the deep and superficial venous systems bilaterally. 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 Home Medications: Ambulatory Orders Medication Instructions Recorded Augmentin 875-125 Tablet 875 mg PO BID 03/18/20 Rosuvastatin Calcium [Crestor] 20 mg PO DAILY 03/18/20 - Family History Paternal - - Patient's father at the age of 72 with a history of cerebrovascular accident and venous disease. Patient's mother at the age of 90, of old age. Smoking Status: Light Smoker (<10/day) Tobacco Use: Cigarettes Review of Systems Constitutional: Denies: Chills, Fever, Weight Change Eyes: Denies: Pain, Vision Change HEENT: Denies: Difficulty Hearing, Difficulty Swallowing, Sinus Congestion Cardiovascular: Denies: Chest Pain, Palpitations Respiratory: Denies: Cough, Shortness of Breath Gastrointestinal: Denies: Diarrhea, Nausea, Vomiting Genitourinary: Denies: Dysuria, Hematuria Endocrine: Denies: Heat/ Cold Intolerance, Polydipsia, Polyuria Hematologic/ Lymphatic: Denies: Easy Bruising, Easy Bleeding - Physical Exam Vital Signs Temp Pulse Resp BP 97.8 F 99 18 145/81 H 06/24/20 08:22 06/24/20 08:22 06/24/20 08:22 06/24/20 08:22 General: Alert, Oriented x3, Cooperative, No apparent distress, Well developed, Well nourished HEENT: Atraumatic, PERRLA, EOMI, Normocephalic Oral: Moist Mucosa Neck: No JVD Lungs: Normal air movement Abdomen: Non-Distended Extremities: No clubbing, No cyanosis, No Calf Tenderness, - - Only minimal swelling and edema is noted in the patient's left lower extremity. The wound on the left lateral calf persists, but appears significantly smaller in size. There is certain improvement. Furthermore, the undermining posteriorly appears to be nearly resolved. The base of the wound is generally pink and healthy in appearance. There is a mild amount of bioburden. Most significantly, however, there is a significant amount of irritation and excoriation circumferentially about the calf, at the level of the ulceration. This is suggestive of a possible reaction to the dressings, or possibly a dermatomycosis. Wound Measurements and Assessment WC - Nurse 1 - General Ulcer Measurement Start: 06/03/20 08:12 Freq: Status: Active Protocol: Activity Type Activity Date Activity User E-Sign Co-Sign Detail Recorded Client Recorded Date Recorded By Document 06/24/20 08:22 [id number] 06/24/20 08:29 DL 06/24/20 08:22 Wound Center Nurse 1 [Ulcer Assessment] #1 Lateral LLE -Current Size (cm) - Length 2.8 -Current Size (cm) - Width 2.5 -Current Size (cm) - Depth 0.2 -Total Square Cm 7.00 -Photo Taken No -Exudate Amt Small -Exudate Type Serosanguineous -Wound Margin Thickened & Rolled Under -Granulation Amt Medium (34-66%) -Granulation Quality [place],Red -Necrosis Amt Medium (34-66%) -Necrotic Tissue Type Adherent Slough -Structure Exposed N/A -Texture (Lois-wound Skin Appearance) Excoriation, Scarring -Moisture (Lois-wound Skin Appearance Dry/Scaly ) -Color (Lois-wound Skin Appearance) Hemosiderin Staining -Temperature (Lois-wound Skin No Abnormality Appearance) (Pt Warm) -Tenderness on Palpation (Lois-wound No Skin Appearance) -Ulcer Cleansing Wound Cleanser -Foul Odor after Cleansing No -Anesthetic Used 4% Lidocaine Solution [Edema Assessment] -Left Calf (cm) 42 -Left Ankle (cm) 26 Musculoskeletal: No Muscle Wasting Neurological: Cranial nerves II-XII grossly intact, Neuro grossly intact Psych/Mental Status: Normal Affect, Appropriate, Alert and oriented to time, place, person, mood and affect Debridement Note Post-Debridement Measurements/Treatment WC - Nurse 2 - General Ulcer CM Notes Start: 06/03/20 08:12 Freq: Status: Active Protocol: Activity Type Activity Date Activity User E-Sign Co-Sign Detail Recorded Client Recorded Date Recorded By Document 06/03/20 08:29 PL [id number] 06/03/20 08:35 PL Document 06/10/20 11:21 PL [id number] 06/10/20 11:24 PL Document 06/17/20 16:55 PL [id number] 06/17/20 16:56 PL 06/03/20 06/10/20 06/17/20 08:29 11:21 16:55 Wound Center Nurse 2 #1 Lateral LLE -Time 08:30 08:33 08:19 -Correct Patient Yes Yes Yes -Correct Side, Site, Position Yes Yes Yes -Correct Procedure Yes Yes Yes -Procedure Performed Yes Yes Yes -Type of Procedure Debridement Debridement Debridement -Clinical Debridement Subcutaneous Subcutaneous Subcutaneous -Tissue Removed Subcutaneous Subcutaneous Subcutaneous -Post Debridement (cm) - Length 3 3.2 3 -Post Debridement (cm) - Width 3 3 2.7 -Post Debridement (cm) - Depth 0.3 0.2 0.3 -Total Square (Post) (cm) 9 9.6 8.1 -Area of Debridement (cm) - Length 3 3.2 3 -Area of Debridement (cm) - Width 3 3 2.7 -Total Square (Area) (cm) 9 9.6 8.1 -Tunneling No No No -Undermining/Tunneling No No -Circular Undermining No No -Wound/Ulcer Outcome Not Healed Not Healed Not Healed -Ulcer Cleansing Rinsed/ Rinsed/ Rinsed/ Irrigated with Irrigated with Irrigated with Saline Saline Saline -Foul Odor after Cleansing No No No -Bioengineered Tissue No No No -Debridement - Subq, 1st 20sq cm Yes No Yes Pain Scale: 0-10 Numeric Is Patient Pain Free? Yes Yes Yes WC - Nurse 3 - General Ulcer D/C NN Start: 06/03/20 08:12 Freq: Status: Active Protocol: Activity Type Activity Date Activity User E-Sign Co-Sign Detail Recorded Client Recorded Date Recorded By Document 06/03/20 08:52 PL [id number] 06/03/20 08:55 PL Document 06/10/20 11:21 PL [id number] 06/10/20 11:24 PL Document 06/17/20 08:35 MW [id number] 06/17/20 08:36 MW 06/03/20 06/10/20 06/17/20 08:52 11:21 08:35 Wound Care Nurse 3 #1 Lateral LLE -Ulcer Cleansing Rinsed/ Rinsed/ Rinsed/ Irrigated with Irrigated with Irrigated with Saline Saline Saline -Foul Odor after Cleansing No No No -Negative Pressure Wound Therapy Continue Continue N/A -Setting (mmHg) 125 125 -Negative Pressure is Continuous Continuous -Primary Dressing Applied Promogran -Primary Dressing Covered/Secured with Dry Gauze & Roll Gauze -Other Covering abd -NPWT Application Charge ($) NPWT </= 50 sq NPWT </= 50 sq cm (disp) cm (disp) -Promogran 1 Left -Lotion applied to leg before No compression wrap -Compression Wrap Surepress ($) Surepress ($) Surepress ($) Treatment Response Procedure Tolerated Well Pain Scale: 0-10 Numeric Is Patient Pain Free? Yes Yes Yes Teaching: Wound Center Dressing Your Wound -Person Taught Patient -Teaching Method Discussion, Demonstration -Response to teaching Verbalize understanding WC - Visit Discharge Discharge Condition Stable Stable Stable Ambulatory Status Ambulatory Ambulatory Ambulatory Transportation Private Auto Private Auto Accompanied by self Medication Reconcilliation completed & No provided to patient/care provider Clinical Summary of Care Provided Yes Yes Yes Laterality: Left - Lateral calf Type of Debridement: Excisional debridement Anesthesia Used: 5% Lidocaine Gel Depth: Down to and including healthy tissue, in the subcutaneous layer Percentage of wound debrided: 100 Instrument Used: 5mm curette Tissue Removed: Bioburden Severity: Fat Layer Exposed Amount of bleeding with debridement: Mild Bleeding Controlled with: Compression and gauze Patient tolerated procedure well Assessment/Plan Active Problems Leg swelling (Chronic) Leg edema (Chronic) Abscess of left leg (Chronic) Surgical wound present (Chronic) Chronic venous insufficiency (Chronic) 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 He was hospitalized for approximately 5 days, and underwent incision and drainage of the abscess. He presented here for definitive management. At the time of his initial presentation, the patient was noted to have a large amount of frankly necrotic and nonviable tissue present at the site of his former abscess, with some tunneling as well. The patient also suffers from longstanding swelling and edema of his lower extremities, and is known to have a history of superficial thrombophlebitis in the left lower extremity previously. Physical findings suggest longstanding chronic venous insufficiency. The patient has undergone a battery of diagnostic testing. An x-ray of the left tibia/fibula shows soft tissue changes, but no other abnormalities. Laboratory results from 03/20/2020 are as follows: White blood count 6.0, hemoglobin 14.4, hematocrit 44.7, platelets 247,000, sodium 137, potassium 4.1, chloride 104, BUN 20, creatinine 0.76, glucose 127, calcium 9.1, total bilirubin 0.60, AST 14, ALT 31, alkaline phosphatase 57, total protein 7.6, albumin 4.1, prealbumin 29.2. Recently, a noninvasive lower extremity arterial study revealed no evidence of significant arterial occlusive disease in the lower extremities. A venous duplex examination revealed incompetence of the great saphenous veins bilaterally. At this juncture, the patient appears to be progressing well, with a progressive decrease in the size and depth of his wound. Undermining posteriorly is nearly resolved. Plan: The patient has been advised to continue conservative treatment measures. These are to include leg elevation. He is to continue sleeping on a flat mattress at night. His legs are to be elevated to heart level, or higher, even during daytime hours. This is to be implemented as much as possible. The patient has been advised to refrain from prolonged, idle standing and sitting. Activity has been encouraged. Implementation of the calf and foot muscle pumps has been explained. Weight loss is also been recommended. We are to continue compression by means of SurePress wraps to both lower extremities. The nonviable and necrotic tissue has been removed from the patient's wound by means of excisional and enzymatic debridements. We have initiated the use of a Snap VAC. However, we are to take a short hiatus from the negative pressure wound therapy, given the excoriation adjacent to the wound margins. We are to continue the use of Promogran topically for at least 1 more week. A prescription is to be provided for Lotrisone cream 1% to be used topically on the skin which is reddened and excoriated at the level of the wound on the left calf. The patient will return for his routine physician assessment in 1 week. Once again, we have reinforced the need for compression, elevation, avoidance of prolonged idle sitting, etc. We will continue to monitor the patient's wound serially, and to assess the patient's progress. Patient smokes rarely, but has been advised to refrain from his smoking habit. Influenza vaccine was not administered today. Patient stands 5 feet 10 inches tall. He weighs 246 pounds. His BMI is 35.3, which places him in a class II obesity category. Weight loss has been recommended, in collaboration with the patient's primary care physician has been advised.
[2020-07-01 08:24] VITALS: BP 152/97; PULSE 87; RESP 18; TEMP 36.5; BMI 35.3
--- NOTE | 2020-07-01 09:12 | PCM.WC.HP ---
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 Current Visit: Yes Code(s): I87.093 - Postthrombotic syndrome with other complications of bilateral lower extremity (7) Hyperpigmentation of skin Status: Chronic Current Visit: Yes Code(s): L81.9 - Disorder of pigmentation, unspecified (8) Lipodermatosclerosis of both lower extremities Status: Chronic Current Visit: Yes Code(s): I83.11 - Varicose veins of right lower extremity with inflammation; I83.12 - Varicose veins of left lower extremity with inflammation (9) Diallo phlebectatica Status: Chronic Current Visit: Yes (10) Wound of left leg Status: Chronic Current Visit: Yes Qualifiers: Encounter type: subsequent encounter Code(s): S81.802A - Unspecified open wound, left lower leg, initial encounter (11) Necrosis Status: Chronic Current Visit: Yes Code(s): I96 - Gangrene, not elsewhere classified (12) Obesity (BMI 35.0-39.9 without comorbidity) Status: Chronic Current Visit: Yes Code(s): E66.9 - Obesity, unspecified (13) Personal history of thrombophlebitis Status: Chronic Current Visit: Yes Code(s): Z86.72 - Personal history of thrombophlebitis History of Present Illness Date of Service: 07/01/20 Chief Complaint: Open wound of the left lateral calf, status-post incision and drainage of abscess History of Wound: This is a 60-year-old male who was admitted to [facility] approximately 1 month prior to presentation with a large abscess on the left lateral calf. On February 11, 2020, he underwent incision and drainage of the abscess. He spent approximately 5 days in the hospital, and was subsequently discharged on Augmentin. The patient claims to sleep on a flat mattress at night. However, he suffers from chronic swelling and edema in both lower extremities. Additionally, he has a history of superficial thrombophlebitis in the left lower extremity, and has undergone a prior left lower extremity vein stripping procedure in the remote past. Patient has developed chronic skin changes in his lower extremities, which include hyperpigmentation and lipodermatosclerosis in the gaiter areas bilaterally. Patient is also noted to have diallo phlebectatica at ankle level bilaterally. The patient claims to be relatively active. Management the time of presentation included the use of a wet-to-dry gauze packing daily. It is noted that patient underwent a venous duplex examination during his hospitalization recently, that was negative for any evidence of thrombosis, but indicated valvular incompetence of the deep and superficial venous systems bilaterally. 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 Home Medications: Ambulatory Orders Medication Instructions Recorded Augmentin 875-125 Tablet 875 mg PO BID 03/18/20 Rosuvastatin Calcium [Crestor] 20 mg PO DAILY 03/18/20 - Family History Paternal - - Patient's father at the age of 72 with a history of cerebrovascular accident and venous disease. Patient's mother at the age of 90, of old age. Smoking Status: Light Smoker (<10/day) Tobacco Use: Cigarettes Review of Systems Constitutional: Denies: Chills, Fever, Weight Change Eyes: Denies: Pain, Vision Change HEENT: Denies: Difficulty Hearing, Difficulty Swallowing, Sinus Congestion Cardiovascular: Denies: Chest Pain, Palpitations Respiratory: Denies: Cough, Shortness of Breath Gastrointestinal: Denies: Diarrhea, Nausea, Vomiting Genitourinary: Denies: Dysuria, Hematuria Endocrine: Denies: Heat/ Cold Intolerance, Polydipsia, Polyuria Hematologic/ Lymphatic: Denies: Easy Bruising, Easy Bleeding - Physical Exam Vital Signs Temp Pulse Resp BP 97.7 F L 87 18 152/97 H 07/01/20 08:24 07/01/20 08:24 07/01/20 08:24 07/01/20 08:24 General: Alert, Oriented x3, Cooperative, No apparent distress, Well developed, Well nourished HEENT: Atraumatic, PERRLA, EOMI, Normocephalic Oral: Moist Mucosa Neck: No JVD Lungs: Normal air movement Abdomen: Non-Distended Extremities: No clubbing, No cyanosis, No edema, No Calf Tenderness, - - There is no significant swelling or edema in the patient's left lower extremity. The left lateral calf wound persists, but is smaller in size. There continues to be weekly improvement. There is no significant undermining. The undermining previously noted appears to have resolved. Dimensions are documented elsewhere. There is no sign of infection or cellulitis. There is a small amount of bioburden. The periwound skin irritation, noted last week, appears to have resolved, as result of the use of Lotrisone cream 1% topically. Skin: No rashes Wound Measurements and Assessment WC - Nurse 1 - General Ulcer Measurement Start: 06/03/20 08:12 Freq: Status: Active Protocol: Activity Type Activity Date Activity User E-Sign Co-Sign Detail Recorded Client Recorded Date Recorded By Document 07/01/20 08:24 PL [id number] 07/01/20 08:28 PL 07/01/20 08:24 Wound Center Nurse 1 [Ulcer Assessment] #1 Lateral LLE -Combined with other wound No -Current Size (cm) - Length 2.8 -Current Size (cm) - Width 2.3 -Current Size (cm) - Depth 0.2 -Total Square Cm 6.44 -Photo Taken No -Epithelialization None Present -Tunneling No -Undermining/Tunneling No -Circular Undermining No -Exudate Amt Medium -Exudate Type Serosanguineous -Granulation Amt Large (67-100%) -Granulation Quality [place],Red -Slough/Fibrin Yes -Necrosis Amt Small (1-33%) -Necrotic Tissue Type Adherent Slough -Texture (Lois-wound Skin Appearance) No Abnormality -Moisture (Lois-wound Skin Appearance No Abnormality ) -Color (Lois-wound Skin Appearance) No Abnormality -Temperature (Lois-wound Skin No Abnormality Appearance) (Pt Warm) -Ulcer Cleansing Rinsed/ Irrigated with Saline -Foul Odor after Cleansing No -Anesthetic Used 4% Lidocaine Solution Musculoskeletal: No Muscle Wasting Neurological: Cranial nerves II-XII grossly intact, Neuro grossly intact Psych/Mental Status: Normal Affect, Appropriate, Alert and oriented to time, place, person, mood and affect Debridement Note Post-Debridement Measurements/Treatment WC - Nurse 2 - General Ulcer CM Notes Start: 06/03/20 08:12 Freq: Status: Active Protocol: Activity Type Activity Date Activity User E-Sign Co-Sign Detail Recorded Client Recorded Date Recorded By Document 06/03/20 08:29 PL [id number] 06/03/20 08:35 PL Document 06/10/20 11:21 PL [id number] 06/10/20 11:24 PL Document 06/17/20 16:55 PL [id number] 06/17/20 16:56 PL Document 06/24/20 12:36 PL [id number] 06/24/20 12:38 PL 06/03/20 06/10/20 06/17/20 08:29 11:21 16:55 Wound Center Nurse 2 #1 Lateral LLE -Time 08:30 08:33 08:19 -Correct Patient Yes Yes Yes -Correct Side, Site, Position Yes Yes Yes -Correct Procedure Yes Yes Yes -Procedure Performed Yes Yes Yes -Type of Procedure Debridement Debridement Debridement -Clinical Debridement Subcutaneous Subcutaneous Subcutaneous -Tissue Removed Subcutaneous Subcutaneous Subcutaneous -Post Debridement (cm) - Length 3 3.2 3 -Post Debridement (cm) - Width 3 3 2.7 -Post Debridement (cm) - Depth 0.3 0.2 0.3 -Total Square (Post) (cm) 9 9.6 8.1 -Area of Debridement (cm) - Length 3 3.2 3 -Area of Debridement (cm) - Width 3 3 2.7 -Total Square (Area) (cm) 9 9.6 8.1 -Tunneling No No No -Undermining/Tunneling No No -Circular Undermining No No -Wound/Ulcer Outcome Not Healed Not Healed Not Healed -Ulcer Cleansing Rinsed/ Rinsed/ Rinsed/ Irrigated with Irrigated with Irrigated with Saline Saline Saline -Foul Odor after Cleansing No No No -Bioengineered Tissue No No No -Debridement - Subq, 1st 20sq cm Yes No Yes Pain Scale: 0-10 Numeric Is Patient Pain Free? Yes Yes Yes 06/24/20 12:36 Wound Center Nurse 2 #1 Lateral LLE -Time 08:35 -Correct Patient Yes -Correct Side, Site, Position Yes -Correct Procedure Yes -Procedure Performed Yes -Type of Procedure Debridement -Clinical Debridement Subcutaneous -Tissue Removed Subcutaneous -Post Debridement (cm) - Length 2.9 -Post Debridement (cm) - Width 2.5 -Post Debridement (cm) - Depth 0.2 -Total Square (Post) (cm) 7.25 -Area of Debridement (cm) - Length 2.9 -Area of Debridement (cm) - Width 2.5 -Total Square (Area) (cm) 7.25 -Tunneling No -Undermining/Tunneling No -Circular Undermining No -Wound/Ulcer Outcome Not Healed -Ulcer Cleansing Rinsed/ Irrigated with Saline -Foul Odor after Cleansing No -Bioengineered Tissue No -Debridement - Subq, 1st 20sq cm Yes Pain Scale: 0-10 Numeric Is Patient Pain Free? Yes - Nurse 3 - General Ulcer D/C NN Start: 06/03/20 08:12 Freq: Status: Active Protocol: Activity Type Activity Date Activity User E-Sign Co-Sign Detail Recorded Client Recorded Date Recorded By Document 06/03/20 08:52 PL [id number] 06/03/20 08:55 PL Document 06/10/20 11:21 PL [id number] 06/10/20 11:24 PL Document 06/17/20 08:35 MW [id number] 06/17/20 08:36 MW Document 06/24/20 09:01 DL [id number] 06/24/20 09:02 DL 06/03/20 06/10/20 06/17/20 08:52 11:21 08:35 Wound Care Nurse 3 #1 Lateral LLE -Ulcer Cleansing Rinsed/ Rinsed/ Rinsed/ Irrigated with Irrigated with Irrigated with Saline Saline Saline -Foul Odor after Cleansing No No No -Negative Pressure Wound Therapy Continue Continue N/A -Setting (mmHg) 125 125 -Negative Pressure is Continuous Continuous -Primary Dressing Applied Promogran -Primary Dressing Covered/Secured with Dry Gauze & Roll Gauze -Other Covering abd -NPWT Application Charge ($) NPWT </= 50 sq NPWT </= 50 sq cm (disp) cm (disp) -Promogran 1 Left -Lotion applied to leg before No compression wrap -Compression Wrap Surepress ($) Surepress ($) Surepress ($) Treatment Response Procedure Tolerated Well Pain Scale: 0-10 Numeric Is Patient Pain Free? Yes Yes Yes Teaching: Wound Center Dressing Your Wound -Person Taught Patient -Teaching Method Discussion, Demonstration -Response to teaching Verbalize understanding WC - Visit Discharge Discharge Condition Stable Stable Stable Ambulatory Status Ambulatory Ambulatory Ambulatory Transportation Private Auto Private Auto Accompanied by self Medication Reconcilliation completed & No provided to patient/care provider Clinical Summary of Care Provided Yes Yes Yes 06/24/20 09:01 Wound Care Nurse 3 #1 Lateral LLE -Ulcer Cleansing Rinsed/ Irrigated with Saline -Foul Odor after Cleansing No -Negative Pressure Wound Therapy -Setting (mmHg) -Negative Pressure is -Primary Dressing Applied Promogran -Primary Dressing Covered/Secured with Dry Gauze, Secured with Tape -Other Covering -NPWT Application Charge ($) -Promogran 1 Left -Lotion applied to leg before compression wrap -Compression Wrap Surepress ($) Treatment Response Procedure Tolerated Well Pain Scale: 0-10 Numeric Is Patient Pain Free? Yes Teaching: Wound Center Dressing Your Wound -Person Taught -Teaching Method -Response to teaching WC - Visit Discharge Discharge Condition Stable Ambulatory Status Ambulatory Transportation Private Auto Accompanied by Medication Reconcilliation completed & provided to patient/care provider Clinical Summary of Care Provided Laterality: Left - Lateral calf Type of Debridement: Excisional debridement Anesthesia Used: 5% Lidocaine Gel Depth: Down to and including healthy tissue, in the subcutaneous layer Percentage of wound debrided: 100 Instrument Used: 5mm curette Tissue Removed: Bioburden Severity: Fat Layer Exposed Amount of bleeding with debridement: Mild Bleeding Controlled with: Compression and gauze Patient tolerated procedure well Assessment/Plan Active Problems Leg swelling (Chronic) Leg edema (Chronic) Abscess of left leg (Chronic) Surgical wound present (Chronic) Chronic venous insufficiency (Chronic) 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 He was hospitalized for approximately 5 days, and underwent incision and drainage of the abscess. He presented here for definitive management. At the time of his initial presentation, the patient was noted to have a large amount of frankly necrotic and nonviable tissue present at the site of his former abscess, with some tunneling as well. The patient also suffers from longstanding swelling and edema of his lower extremities, and is known to have a history of superficial thrombophlebitis in the left lower extremity previously. Physical findings suggest longstanding chronic venous insufficiency. The patient has undergone a battery of diagnostic testing. An x-ray of the left tibia/fibula shows soft tissue changes, but no other abnormalities. Laboratory results from 03/20/2020 are as follows: White blood count 6.0, hemoglobin 14.4, hematocrit 44.7, platelets 247,000, sodium 137, potassium 4.1, chloride 104, BUN 20, creatinine 0.76, glucose 127, calcium 9.1, total bilirubin 0.60, AST 14, ALT 31, alkaline phosphatase 57, total protein 7.6, albumin 4.1, prealbumin 29.2. Recently, a noninvasive lower extremity arterial study revealed no evidence of significant arterial occlusive disease in the lower extremities. A venous duplex examination revealed incompetence of the great saphenous veins bilaterally. At this juncture, the patient appears to be progressing well, with a progressive decrease in the size and depth of his wound. Undermining posteriorly is resolved. Plan: The patient has been advised to continue conservative treatment measures. These are to include leg elevation. He is to continue sleeping on a flat mattress at night. His legs are to be elevated to heart level, or higher, even during daytime hours. This is to be implemented as much as possible. The patient has been advised to refrain from prolonged, idle standing and sitting. Activity has been encouraged. Implementation of the calf and foot muscle pumps has been explained. Weight loss is also been recommended. We are to continue compression by means of SurePress wraps to both lower extremities. The nonviable and necrotic tissue has been removed from the patient's wound by means of excisional and enzymatic debridements. We initiated the use of a Snap VAC, but have been using Promogran topically on a daily basis recently. The patient has continued to do well. We are to continue with the use of Promogran for now. We are to seek approval for the use of a skin substitute. We will seek preauthorization with the patient's insurance company. The patient is to return in 1 week for reassessment. It appears as though the Lotrisone cream 1%, prescribed last week, has resulted in resolution of the periwound skin irritation which had been noted. The patient will return for his routine physician assessment in 1 week. Once again, we have reinforced the need for compression, elevation, avoidance of prolonged idle sitting, etc. We will continue to monitor the patient's wound serially, and to assess the patient's progress. Patient smokes rarely, but has been advised to refrain from his smoking habit. Influenza vaccine was not administered today. Patient stands 5 feet 10 inches tall. He weighs 246 pounds. His BMI is 35.3, which places him in a class II obesity category. Weight loss has been recommended, in collaboration with the patient's primary care physician has been advised.
[2020-07-01 09:14] VITALS: RESP 16
== END 2020-07-02 23:59 ==
LOC: WC 08:15
PROVIDERS: PCP Family Medicine; Referring Provider Surgery; Visit Provider Surgery
DX: I83.222 Varicose veins of left lower extremity with both ulcer of calf and inflammation (principal); L02.416 Cutaneous abscess of left lower limb; T14.8XXA Other injury of unspecified body region, initial encounter; Y83.8 Other surgical procedures as the cause of abnormal reaction of the patient, or of later complication, without mention of misadventure at the time of the procedure; R60.0 Localized edema; M79.89 Other specified soft tissue disorders; L97.222 Non-pressure chronic ulcer of left calf with fat layer exposed; I83.11 Varicose veins of right lower extremity with inflammation; E66.9 Obesity, unspecified; Z86.72 Personal history of thrombophlebitis; F17.210 Nicotine dependence, cigarettes, uncomplicated; Z68.35 Body mass index [BMI] 35.0-35.9, adult
CPT/HCPCS: 11042; 97607

== ENCOUNTER 2020-07-29 08:00 | Outpatient (RCR) | payer OTHER, SELFPAY ==
[2020-07-03 00:32] VITALS: BP 152/97; PULSE 87; RESP 16; TEMP 36.5
[2020-07-08 08:10] VITALS: BP 143/72; PULSE 93; RESP 18; TEMP 36.4; BMI 35.3
--- NOTE | 2020-07-08 08:16 | HP.PCM_ITS ---
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 Current Visit: Yes Code(s): I87.093 - Postthrombotic syndrome with other complications of bilateral lower extremity (7) Hyperpigmentation of skin Status: Chronic Current Visit: Yes Code(s): L81.9 - Disorder of pigmentation, unspecified (8) Lipodermatosclerosis of both lower extremities Status: Chronic Current Visit: Yes Code(s): I83.11 - Varicose veins of right lower extremity with inflammation; I83.12 - Varicose veins of left lower extremity with inflammation (9) Diallo phlebectatica Status: Chronic Current Visit: Yes (10) Wound of left leg Status: Chronic Current Visit: Yes Qualifiers: Encounter type: subsequent encounter Code(s): S81.802A - Unspecified open wound, left lower leg, initial encounter (11) Necrosis Status: Chronic Current Visit: No Code(s): I96 - Gangrene, not elsewhere classified (12) Obesity (BMI 35.0-39.9 without comorbidity) Status: Chronic Current Visit: No Code(s): E66.9 - Obesity, unspecified (13) Personal history of thrombophlebitis Status: Chronic Current Visit: No Code(s): Z86.72 - Personal history of thrombophlebitis History of Present Illness Date of Service: 07/08/20 Chief Complaint: Open wound of the left lateral calf, status-post incision and drainage of abscess History of Wound: This is a 60-year-old male who was admitted to [facility] approximately 1 month prior to presentation with a large abscess on the left lateral calf. On February 11, 2020, he underwent incision and drainage of the abscess. He spent approximately 5 days in the hospital, and was subsequently discharged on Augmentin. The patient claims to sleep on a flat mat tress at night. However, he suffers from chronic swelling and edema in both lower extremities. Additionally, he has a history of superficial thrombophlebitis in the left lower extremity, and has undergone a prior left lower extremity vein stripping procedure in the remote past. Patient has developed chronic skin changes in his lower extremities, which include hyperpigmentation and lipodermatosclerosis in the gaiter areas bilaterally. Patient is also noted to have diallo phlebectatica at ankle level bilaterally. The patient claims to be relatively active. Management the time of presentation included the use of a wet-to-dry gauze packing daily. It is noted that patient underwent a venous duplex examination during his hospitalization recently, that was negative for any evidence of thrombosis, but indicated valvular incompetence of the deep and superficial venous systems bilaterally. 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 Home Medications: Ambulatory Orders Medication Instructions Recorded Augmentin 875-125 Tablet 875 mg PO BID 03/18/20 Rosuvastatin Calcium [Crestor] 20 mg PO DAILY 03/18/20 - Family History Paternal - - Patient's father at the age of 72 with a history of cerebrovascular accident and venous disease. Patient's mother at the age of 90, of old age. Smoking Status: Light Smoker (<10/day) Tobacco Use: Cigarettes Review of Systems Constitutional: Denies: Chills, Fever, Weight Change Eyes: Denies: Pain, Vision Change HEENT: Denies: Difficulty Hearing, Difficulty Swallowing, Sinus Congestion Cardiovascular: Denies: Chest Pain, Palpitations Respiratory: Denies: Cough, Shortness of Breath Gastrointestinal: Denies: Diarrhea, Nausea, Vomiting Genitourinary: Denies: Dysuria, Hematuria Endocrine: Denies: Heat/ Cold Intolerance, Polydipsia, Polyuria Hematologic/ Lymphatic: Denies: Easy Bruising, Easy Bleeding - Physical Exam Vital Signs Temp Pulse Resp BP 97.6 F L 93 18 143/72 H 07/08/20 08:10 07/08/20 08:10 07/08/20 08:10 07/08/20 08:10 General: Alert, Oriented x3, Cooperative, No apparent distress, Well developed, Well nourished HEENT: Atraumatic, PERRLA, EOMI, Normocephalic Oral: Moist Mucosa Neck: No JVD Lungs: Normal air movement Abdomen: Non-Distended Extremities: No clubbing, No cyanosis, No Calf Tenderness, - - Slight swelling and edema are noted in the patient's left lower extremity. Chronic hyperpigmentation is noted. The wound on the left lateral calf persists. It is smaller in size. Dimensions are documented elsewhere. There is no sign of infection or cellulitis. The base of the wound is generally pink and healthy in appearance, with a small amount of bioburden. Skin: No rashes Wound Measurements and Assessment WC - Nurse 1 - General Ulcer Measurement Start: 07/08/20 08:09 Freq: Status: Active Protocol: Activity Type Activity Date Activity User E-Sign Co-Sign Detail Recorded Client Recorded Date Recorded By Document 07/08/20 08:10 PL [id number] 07/08/20 08:14 PL 07/08/20 08:10 Wound Center Nurse 1 [Ulcer Assessment] #1 Lateral LLE -Combined with other wound No -Current Size (cm) - Length 2 -Current Size (cm) - Width 2 -Current Size (cm) - Depth 0.2 -Total Square Cm 4 -Photo Taken No -Epithelialization None Present -Tunneling No -Undermining/Tunneling No -Circular Undermining No -Exudate Amt Medium -Exudate Type Serosanguineous -Granulation Amt Large (67-100%) -Granulation Quality [place] -Slough/Fibrin Yes -Necrosis Amt Small (1-33%) -Necrotic Tissue Type Adherent Slough -Texture (Lois-wound Skin Appearance) No Abnormality -Moisture (Lois-wound Skin Appearance No Abnormality ) -Color (Lois-wound Skin Appearance) No Abnormality -Temperature (Lois-wound Skin No Abnormality Appearance) (Pt Warm) WC - Nurse 2 - General Ulcer CM Notes Start: 07/08/20 08:09 Freq: Status: Active Protocol: Activity Type Activity Date Activity User E-Sign Co-Sign Detail Recorded Client Recorded Date Recorded By Document 07/08/20 08:14 PL [id number] 07/08/20 08:15 PL 07/08/20 08:14 Wound Center Nurse 2 [Procedure/Treatment] -Time 08:09 -Correct Patient Yes -Correct Side, Site, Position Yes -Correct Procedure Yes -Procedure Performed Yes -Type of Procedure Debridement -Clinical Debridement Subcutaneous -Tissue Removed Subcutaneous -Post Debridement (cm) - Length 2.1 -Post Debridement (cm) - Width 2.1 -Post Debridement (cm) - Depth 0.2 -Total Square (Post) (cm) 4.41 -Area of Debridement (cm) - Length 2.1 -Area of Debridement (cm) - Width 2.1 -Total Square (Area) (cm) 4.41 -Tunneling No -Undermining/Tunneling No -Circular Undermining No -Wound/Ulcer Outcome Not Healed -Ulcer Cleansing Rinsed/ Irrigated with Saline -Foul Odor after Cleansing No -Bioengineered Tissue No -Debridement - Subq, 1st 20sq cm Yes [See Physician Procedure note for Specifics] Pain Scale: 0-10 Numeric [Pain] -Is Patient Pain Free? Yes Musculoskeletal: No Muscle Wasting Neurological: Cranial nerves II-XII grossly intact, Neuro grossly intact Psych/Mental Status: Normal Affect, Appropriate, Alert and oriented to time, place, person, mood and affect Debridement Note Post-Debridement Measurements/Treatment WC - Nurse 2 - General Ulcer CM Notes Start: 07/08/20 08:09 Freq: Status: Active Protocol: Activity Type Activity Date Activity User E-Sign Co-Sign Detail Recorded Client Recorded Date Recorded By Document 07/08/20 08:14 PL [id number] 07/08/20 08:15 PL 07/08/20 08:14 Wound Center Nurse 2 #1 Lateral LLE -Time 08:09 -Correct Patient Yes -Correct Side, Site, Position Yes -Correct Procedure Yes -Procedure Performed Yes -Type of Procedure Debridement -Clinical Debridement Subcutaneous -Tissue Removed Subcutaneous -Post Debridement (cm) - Length 2.1 -Post Debridement (cm) - Width 2.1 -Post Debridement (cm) - Depth 0.2 -Total Square (Post) (cm) 4.41 -Area of Debridement (cm) - Length 2.1 -Area of Debridement (cm) - Width 2.1 -Total Square (Area) (cm) 4.41 -Tunneling No -Undermining/Tunneling No -Circular Undermining No -Wound/Ulcer Outcome Not Healed -Ulcer Cleansing Rinsed/ Irrigated with Saline -Foul Odor after Cleansing No -Bioengineered Tissue No -Debridement - Subq, 1st 20sq cm Yes Pain Scale: 0-10 Numeric Is Patient Pain Free? Yes Laterality: Left - Lateral calf Type of Debridement: Excisional debridement Anesthesia Used: 5% Lidocaine Gel Depth: Down to and including healthy tissue, in the subcutaneous layer Percentage of wound debrided: 100 Instrument Used: 7mm curette Tissue Removed: Bioburden Severity: Fat Layer Exposed Amount of bleeding with debridement: Mild Bleeding Controlled with: Compression and gauze Patient tolerated procedure well Assessment/Plan Active Problems Leg swelling (Chronic) Leg edema (Chronic) Abscess of left leg (Chronic) Surgical wound present (Chronic) Chronic venous insufficiency (Chronic) 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 He was hospitalized for approximately 5 days, and underwent incision and drainage of the abscess. He presented here for definitive management. At the time of his initial presentation, the patient was noted to have a large amount of frankly necrotic and nonviable tissue present at the site of his former abscess, with some tunneling as well. The patient also suffers from longstanding swelling and edema of his lower extremities, and is known to have a history of superficial thrombophlebitis in the left lower extremity previously. Physical findings suggest longstanding chronic venous insufficiency. The patient has undergone a battery of diagnostic testing. An x-ray of the left tibia/fibula shows soft tissue changes, but no other abnormalities. Laboratory results from 03/20/2020 are as follows: White blood count 6.0, hemoglobin 14.4, hematocrit 44.7, platelets 247,000, sodium 137, potassium 4.1, chloride 104, BUN 20, creatinine 0.76, glucose 127, calcium 9.1, total bilirubin 0.60, AST 14, ALT 31, alkaline phosphatase 57, total protein 7.6, albumin 4.1, prealbumin 29.2. Recently, a noninvasive lower extremity arterial study revealed no evidence of significant arterial occlusive disease in the lower extremities. A venous duplex examination revealed incompetence of the great saphenous veins bilaterally. At this juncture, the patient appears to be progressing well, with a progressive decrease in the size and depth of his wound. Undermining posteriorly is resolved. Plan: The patient has been advised to continue conservative treatment measures. These are to include leg elevation. He is to continue sleeping on a flat mattress at night. His legs are to be elevated to heart level, or higher, even during daytime hours. This is to be implemented as much as possible. The patient has been advised to refrain from prolonged, idle standing and sitting. Activity has been encouraged. Implementation of the calf and foot muscle pumps has been explained. Weight loss is also been recommended. We are to continue compression by means of SurePress wraps to both lower extremities. The nonviable and necrotic tissue has been removed from the patient's wound by means of excisional and enzymatic debridements. We initiated the use of a Snap VAC, but have been using Promogran topically on a daily basis recently. The patient has continued to do well. We are to continue with the use of Promogran for now. We are to seek approval for the use of a skin substitute. We will seek preauthorization with the patient's insurance company. The patient is to return in 1 week for reassessment. It appears as though the Lotrisone cream 1%, prescribed last week, has resulted in resolution of the periwound skin irritation which had been noted. The patient will return for his routine physician assessment in 1 week. Once again, we have reinforced the need for compression, elevation, avoidance of prolonged idle sitting, etc. We will co alfredo to monitor the patient's wound serially, and to assess the patient's progress. Patient smokes rarely, but has been advised to refrain from his smoking habit. Influenza vaccine was not administered today. Patient stands 5 feet 10 inches tall. He weighs 246 pounds. His BMI is 35.3, which places him in a class II obesity category. Weight loss has been recommended, in collaboration with the patient's primary care physician has been advised.
[2020-07-15 07:51] VITALS: BP 139/81; PULSE 97; RESP 18; TEMP 36.2; BMI 35.3
--- NOTE | 2020-07-15 08:17 | PCM.WC.HP ---
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 Code(s): I87.093 - Postthrombotic syndrome with other complications of bilateral lower extremity (7) Hyperpigmentation of skin Status: Chronic Code(s): L81.9 - Disorder of pigmentation, unspecified (8) Lipodermatosclerosis of both lower extremities Status: Chronic Code(s): I83.11 - Varicose veins of right lower extremity with inflammation; I83.12 - Varicose veins of left lower extremity with inflammation (9) Diallo phlebectatica Status: Chronic (10) Wound of left leg Status: Chronic Qualifiers: Encounter type: subsequent encounter Code(s): S81.802A - Unspecified open wound, left lower leg, initial encounter (11) Necrosis Status: Chronic Code(s): I96 - Gangrene, not elsewhere classified (12) Obesity (BMI 35.0-39.9 without comorbidity) Status: Chronic Code(s): E66.9 - Obesity, unspecified (13) Personal history of thrombophlebitis Status: Chronic Code(s): Z86.72 - Personal history of thrombophlebitis History of Present Illness Date of Service: 07/15/20 Chief Complaint: Open wound of the left lateral calf, status-post incision and drainage of abscess History of Wound: This is a 60-year-old male who was admitted to [facility] approximately 1 month prior to presentation with a large abscess on the left lateral calf. On February 11, 2020, he underwent incision and drainage of the abscess. He spent approximately 5 days in the hospital, and was subsequently discharged on Augmentin. The patient claims to sleep on a flat mattress at night. However, he suffers from chronic swelling and edema in both lower extremities. Additionally, he has a history of superficial thrombophlebitis in the left lower extremity, and has undergone a prior left lower extremity vein stripping procedure in the remote past. Patient has developed chronic skin changes in his lower extremities, which include hyperpigmentation and lipodermatosclerosis in the gaiter areas bilaterally. Patient is also noted to have diallo phlebectatica at ankle level bilaterally. The patient claims to be relatively active. Management the time of presentation included the use of a wet-to-dry gauze packing daily. It is noted that patient underwent a venous duplex examination during his hospitalization recently, that was negative for any evidence of thrombosis, but indicated valvular incompetence of the deep and superficial venous systems bilaterally. 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 Home Medications: Ambulatory Orders Medication Instructions Recorded Augmentin 875-125 Tablet 875 mg PO BID 03/18/20 Rosuvastatin Calcium [Crestor] 20 mg PO DAILY 03/18/20 - Family History Paternal - - Patient's father at the age of 72 with a history of cerebrovascular accident and venous disease. Patient's mother at the age of 90, of old age. Smoking Status: Light Smoker (<10/day) Tobacco Use: Cigarettes Review of Systems Constitutional: Denies: Chills, Fever, Weight Change Eyes: Denies: Pain, Vision Change HEENT: Denies: Difficulty Hearing, Difficulty Swallowing, Sinus Congestion Cardiovascular: Denies: Chest Pain, Palpitations Respiratory: Denies: Cough, Shortness of Breath Gastrointestinal: Denies: Diarrhea, Nausea, Vomiting Genitourinary: Denies: Dysuria, Hematuria Endocrine: Denies: Heat/ Cold Intolerance, Polydipsia, Polyuria Hematologic/ Lymphatic: Denies: Easy Bruising, Easy Bleeding - Physical Exam Vital Signs Temp Pulse Resp BP 97.1 F L 97 18 139/81 H 07/15/20 07:51 07/15/20 07:51 07/15/20 07:51 07/15/20 07:51 General: Alert, Oriented x3, Cooperative, No apparent distress, Well developed, Well nourished HEENT: Atraumatic, PERRLA, EOMI, Normocephalic Oral: Moist Mucosa Neck: No JVD Lungs: Normal air movement Abdomen: Non-Distended Extremities: No clubbing, No cyanosis, No edema, No Calf Tenderness, - - There is no significant swelling or edema in the patient's left lower extremity. Chronic changes of hemosiderin staining and lipodermatosclerosis persist in the gaiter area of the left lower extremity. There are also noted to be some prominent large varicose veins. The wound on the left lateral c Wound Measurements and Assessment WC - Nurse 1 - General Ulcer Measurement Start: 07/08/20 08:09 Freq: Status: Active Protocol: Activity Type Activity Date Activity User E-Sign Co-Sign Detail Recorded Client Recorded Date Recorded By Document 07/15/20 07:51 PL [id number] 07/15/20 08:00 PL 07/15/20 07:51 Wound Center Nurse 1 [Ulcer Assessment] #1 Lateral LLE -Combined with other wound No -Current Size (cm) - Length 1.0 -Current Size (cm) - Width 0.8 -Current Size (cm) - Depth 0.1 -Total Square Cm 0.80 -Photo Taken No -Epithelialization None Present -Tunneling No -Undermining/Tunneling No -Exudate Amt Medium -Exudate Type Serosanguineous -Granulation Amt Large (67-100%) -Granulation Quality Tri[place]Lakes -Slough/Fibrin No -Necrosis Amt Small (1-33%) -Necrotic Tissue Type Adherent Slough -Texture (Lois-wound Skin Appearance) No Abnormality -Moisture (Lois-wound Skin Appearance No Abnormality ) -Color (Lois-wound Skin Appearance) No Abnormality -Temperature (Lois-wound Skin No Abnormality Appearance) (Pt Warm) -Ulcer Cleansing Rinsed/ Irrigated with Saline -Foul Odor after Cleansing No -Anesthetic Used 5% Lidocaine Gel [Edema Assessment] -Right Calf (cm) 42 -Point of measurement (cm from the 34 medial instep) -Right Ankle (cm) 26 -Point of Measurement (cm from the 12 medial instep) WC - Nurse 2 - General Ulcer CM Notes Start: 07/08/20 08:09 Freq: Status: Active Protocol: Activity Type Activity Date Activity User E-Sign Co-Sign Detail Recorded Client Recorded Date Recorded By Document 07/15/20 08:15 PL [id number] 07/15/20 08:16 PL 07/15/20 08:15 Wound Center Nurse 2 [Procedure/Treatment] #1 Lateral LLE -Time 08:10 -Correct Patient Yes -Correct Side, Site, Position Yes -Correct Procedure Yes -Procedure Performed Yes -Type of Procedure Debridement -Clinical Debridement Subcutaneous -Tissue Removed Subcutaneous -Post Debridement (cm) - Length 1 -Post Debridement (cm) - Width 0.5 -Post Debridement (cm) - Depth 0.1 -Total Square (Post) (cm) 0.5 -Area of Debridement (cm) - Length 1 -Area of Debridement (cm) - Width 0.5 -Total Square (Area) (cm) 0.5 -Tunneling No -Undermining/Tunneling No -Circular Undermining No -Wound/Ulcer Outcome Not Healed -Bioengineered Tissue No -Debridement - Subq, 1st 20sq cm Yes [See Physician Procedure note for Specifics] Pain Scale: 0-10 Numeric [Pain] -Is Patient Pain Free? Yes Debridement Note Post-Debridement Measurements/Treatment WC - Nurse 2 - General Ulcer CM Notes Start: 07/08/20 08:09 Freq: Status: Active Protocol: Activity Type Activity Date Activity User E-Sign Co-Sign Detail Recorded Client Recorded Date Recorded By Document 07/08/20 08:14 PL [id number] 07/08/20 08:15 PL Document 07/15/20 08:15 PL [id number] 07/15/20 08:16 PL 07/08/20 07/15/20 08:14 08:15 Wound Center Nurse 2 #1 Lateral LLE -Time 08:09 08:10 -Correct Patient Yes Yes -Correct Side, Site, Position Yes Yes -Correct Procedure Yes Yes -Procedure Performed Yes Yes -Type of Procedure Debridement Debridement -Clinical Debridement Subcutaneous Subcutaneous -Tissue Removed Subcutaneous Subcutaneous -Post Debridement (cm) - Length 2.1 1 -Post Debridement (cm) - Width 2.1 0.5 -Post Debridement (cm) - Depth 0.2 0.1 -Total Square (Post) (cm) 4.41 0.5 -Area of Debridement (cm) - Length 2.1 1 -Area of Debridement (cm) - Width 2.1 0.5 -Total Square (Area) (cm) 4.41 0.5 -Tunneling No No -Undermining/Tunneling No No -Circular Undermining No No -Wound/Ulcer Outcome Not Healed Not Healed -Ulcer Cleansing Rinsed/ Irrigated with Saline -Foul Odor after Cleansing No -Bioengineered Tissue No No -Debridement - Subq, 1st 20sq cm Yes Yes Pain Scale: 0-10 Numeric Is Patient Pain Free? Yes Yes - Nurse 3 - General Ulcer D/C NN Start: 07/08/20 08:09 Freq: Status: Active Protocol: Activity Type Activity Date Activity User E-Sign Co-Sign Detail Recorded Client Recorded Date Recorded By Document 07/08/20 16:48 PL [id number] 07/08/20 16:58 PL 07/08/20 16:48 Wound Care Nurse 3 #1 Lateral LLE -Ulcer Cleansing Rinsed/ Irrigated with Saline -Foul Odor after Cleansing No -Primary Dressing Applied Promogran -Primary Dressing Covered/Secured with Dry Gauze, Secured with Tape -Promogran 1 Left -Compression Wrap Surepress ($) Pain Scale: 0-10 Numeric Is Patient Pain Free? Yes WC - Visit Discharge Discharge Condition Stable Ambulatory Status Ambulatory Transportation Private Auto Clinical Summary of Care Provided Yes Assessment/Plan Assessment: This is a 60-year-old male who presented elsewhere initially with a large abscess on the left lateral calf. He was hospitalized for approximately 5 days, and underwent incision and drainage of the abscess. He presented here for definitive management. At the time of his initial presentation, the patient was noted to have a large amount of frankly necrotic and nonviable tissue present at the site of his former abscess, with some tunneling as well. The patient also suffers from longstanding swelling and edema of his lower extremities, and is known to have a history of superficial thrombophlebitis in the left lower extremity previously. Physical findings suggest longstanding chronic venous insufficiency. The patient has undergone a battery of diagnostic testing. An x-ray of the left tibia/fibula shows soft tissue changes, but no other abnormalities. Laboratory results from 03/20/2020 are as follows: White blood count 6.0, hemoglobin 14.4, hematocrit 44.7, platelets 247,000, sodium 137, potassium 4.1, chloride 104, BUN 20, creatinine 0.76, glucose 127, calcium 9.1, total bilirubin 0.60, AST 14, ALT 31, alkaline phosphatase 57, total protein 7.6, albumin 4.1, prealbumin 29.2. Recently, a noninvasive lower extremity arterial study revealed no evidence of significant arterial occlusive disease in the lower extremities. A venous duplex examination revealed incompetence of the great saphenous veins bilaterally. At this juncture, the patient appears to be progressing well, with a progressive decrease in the size and depth of his wound. Undermining posteriorly is resolved. Plan: The patient has been advised to continue conservative treatment measures. These are to include leg elevation. He is to continue sleeping on a flat mattress at night. His legs are to be elevated to heart level, or higher, even during daytime hours. This is to be implemented as much as possible. The patient has been advised to refrain from prolonged, idle standing and sitting. Activity has been encouraged. Implementation of the calf and foot muscle pumps has been explained. Weight loss is also been recommended. We are to continue compression by means of SurePress wraps to both lower extremities. The nonviable and necrotic tissue has been removed from the patient's wound by means of excisional and enzymatic debridements. We initiated the use of a Snap VAC, but have been using Promogran topically on a daily basis recently. The patient has continued to do well. We are to continue with the use of Promogran for now. We are to seek approval for the use of a skin substitute. We will seek preauthorization with the patient's insurance company. The patient is to return in 1 week for reassessment. It appears as though the Lotrisone cream 1%, prescribed last week, has resulted in resolution of the periwound skin irritation which had been noted. The patient will return for his routine physician assessment in 1 week. Once again, we have reinforced the need for compression, elevation, avoidance of prolonged idle sitting, etc. We will continue to monitor the patient's wound serially, and to assess the patient's progress. Patient smokes rarely, but has been advised to refrain from his smoking habit. Influenza vaccine was not administered today. Patient stands 5 feet 10 inches tall. He weighs 246 pounds. His BMI is 35.3, which places him in a class II obesity category. Weight loss has been recommended, in collaboration with the patient's primary care physician has been advised.
[2020-07-15 08:23] VITALS: BP 141/77; PULSE 90
--- NOTE | 2020-07-15 08:28 | HP.PCM_ITS ---
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 Code(s): I87.093 - Postthrombotic syndrome with other complications of bilateral lower extremity (7) Hyperpigmentation of skin Status: Chronic Code(s): L81.9 - Disorder of pigmentation, unspecified (8) Lipodermatosclerosis of both lower extremities Status: Chronic Code(s): I83.11 - Varicose veins of right lower extremity with inflammation; I83.12 - Varicose veins of left lower extremity with inflammation (9) Diallo phlebectatica Status: Chronic (10) Wound of left leg Status: Chronic Qualifiers: Encounter type: subsequent encounter Code(s): S81.802A - Unspecified open wound, left lower leg, initial encounter (11) Necrosis Status: Chronic Code(s): I96 - Gangrene, not elsewhere classified (12) Obesity (BMI 35.0-39.9 without comorbidity) Status: Chronic Code(s): E66.9 - Obesity, unspecified (13) Personal history of thrombophlebitis Status: Chronic Code(s): Z86.72 - Personal history of thrombophlebitis History of Present Illness Date of Service: 07/15/20 Chief Complaint: Open wound of the left lateral calf, status-post incision and drainage of abscess History of Wound: This is a 60-year-old male who was admitted to [facility] approximately 1 month prior to presentation with a large abscess on the left lateral calf. On February 11, 2020, he underwent incision and drainage of the abscess. He spent approximately 5 days in the hospital, and was subsequently discharged on Augmentin. The patient claims to sleep on a flat mattress at night. However, he suffers from chronic swelling and edema in both lower extremities. Additionally, he has a history of superficial thrombophlebitis in the left lower extremity, and has undergone a prior left lower extremity vein stripping procedure in the remote past. Patient has developed chronic skin changes in his lower extremities, which include hyperpigmentation and lipodermatosclerosis in the gaiter areas bilaterally. Patient is also noted to have diallo phlebectatica at ankle level bilaterally. The patient claims to be relatively active. Management the time of presentation included the use of a wet-to-dry gauze packing daily. It is noted that patient underwent a venous duplex examination during his hospitalization recently, that was negative for any evidence of thrombosis, but indicated valvular incompetence of the deep and superficial venous systems bilaterally. 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 Home Medications: Ambulatory Orders Medication Instructions Recorded Augmentin 875-125 Tablet 875 mg PO BID 03/18/20 Rosuvastatin Calcium [Crestor] 20 mg PO DAILY 03/18/20 - Family History Paternal - - Patient's father at the age of 72 with a history of cerebrovascular accident and venous disease. Patient's mother at the age of 90, of old age. Smoking Status: Light Smoker (<10/day) Tobacco Use: Cigarettes Review of Systems Constitutional: Denies: Chills, Fever, Weight Change Eyes: Denies: Pain, Vision Change HEENT: Denies: Difficulty Hearing, Difficulty Swallowing, Sinus Congestion Cardiovascular: Denies: Chest Pain, Palpitations Respiratory: Denies: Cough, Shortness of Breath Gastrointestinal: Denies: Diarrhea, Nausea, Vomiting Genitourinary: Denies: Dysuria, Hematuria Endocrine: Denies: Heat/ Cold Intolerance, Polydipsia, Polyuria Hematologic/ Lymphatic: Denies: Easy Bruising, Easy Bleeding - Physical Exam Vital Signs Temp Pulse Resp BP 97.1 F L 90 18 141/77 H 07/15/20 07:51 07/15/20 08:23 07/15/20 07:51 07/15/20 08:23 General: Alert, Oriented x3, Cooperative, No apparent distress, Well developed, Well nourished HEENT: Atraumatic, PERRLA, EOMI, Normocephalic Oral: Moist Mucosa Neck: No JVD Lungs: Normal air movement Abdomen: Non-Distended Extremities: No clubbing, No cyanosis, No edema, No Calf Tenderness, - - There is no significant swelling or edema in the patient's left lower extremity. Chronic venous changes persist, including hyperpigmentation and lipodermatosclerosis in the left gaiter area. There are also some prominent large varicosities. The wound on the left lateral calf persists, but is smal Wound Measurements and Assessment WC - Nurse 1 - General Ulcer Measurement Start: 07/08/20 08:09 Freq: Status: Active Protocol: Activity Type Activity Date Activity User E-Sign Co-Sign Detail Recorded Client Recorded Date Recorded By Document 07/15/20 07:51 PL [id number] 07/15/20 08:00 PL 07/15/20 07:51 Wound Center Nurse 1 [Ulcer Assessment] #1 Lateral LLE -Combined with other wound No -Current Size (cm) - Length 1.0 -Current Size (cm) - Width 0.8 -Current Size (cm) - Depth 0.1 -Total Square Cm 0.80 -Photo Taken No -Epithelialization None Present -Tunneling No -Undermining/Tunneling No -Exudate Amt Medium -Exudate Type Serosanguineous -Granulation Amt Large (67-100%) -Granulation Quality [place] -Slough/Fibrin No -Necrosis Amt Small (1-33%) -Necrotic Tissue Type Adherent Slough -Texture (Lois-wound Skin Appearance) No Abnormality -Moisture (Lois-wound Skin Appearance No Abnormality ) -Color (Lois-wound Skin Appearance) No Abnormality -Temperature (Lois-wound Skin No Abnormality Appearance) (Pt Warm) -Ulcer Cleansing Rinsed/ Irrigated with Saline -Foul Odor after Cleansing No -Anesthetic Used 5% Lidocaine Gel [Edema Assessment] -Right Calf (cm) 42 -Point of measurement (cm from the 34 medial instep) -Right Ankle (cm) 26 -Point of Measurement (cm from the 12 medial instep) WC - Nurse 2 - General Ulcer CM Notes Start: 07/08/20 08:09 Freq: Status: Active Protocol: Activity Type Activity Date Activity User E-Sign Co-Sign Detail Recorded Client Recorded Date Recorded By Document 07/15/20 08:15 PL [id number] 07/15/20 08:16 PL 07/15/20 08:15 Wound Center Nurse 2 [Procedure/Treatment] #1 Lateral LLE -Time 08:10 -Correct Patient Yes -Correct Side, Site, Position Yes -Correct Procedure Yes -Procedure Performed Yes -Type of Procedure Debridement -Clinical Debridement Subcutaneous -Tissue Removed Subcutaneous -Post Debridement (cm) - Length 1 -Post Debridement (cm) - Width 0.5 -Post Debridement (cm) - Depth 0.1 -Total Square (Post) (cm) 0.5 -Area of Debridement (cm) - Length 1 -Area of Debridement (cm) - Width 0.5 -Total Square (Area) (cm) 0.5 -Tunneling No -Undermining/Tunneling No -Circular Undermining No -Wound/Ulcer Outcome Not Healed -Bioengineered Tissue No -Debridement - Subq, 1st 20sq cm Yes [See Physician Procedure note for Specifics] Pain Scale: 0-10 Numeric [Pain] -Is Patient Pain Free? Yes KISHA - Nurse 3 - General Ulcer D/C NN Start: 07/08/20 08:09 Freq: Status: Active Protocol: Activity Type Activity Date Activity User E-Sign Co-Sign Detail Recorded Client Recorded Date Recorded By Document 07/15/20 08:23 DL [id number] 07/15/20 08:24 DL 07/15/20 08:23 Wound Care Nurse 3 [Wound Dressing] #1 Lateral LLE -Ulcer Cleansing Rinsed/ Irrigated with Saline -Foul Odor after Cleansing No -Other Dressing promogran -Primary Dressing Covered/Secured Dry Gauze, with Secured with Tape -Other Covering surepress [Compression Applied] Left -Compression Wrap Surepress ($) [Post Procedure Tolerated] -Treatment Response Procedure Tolerated Well Vital Signs [Pulse] -Pulse Rate (60-100) 90 -Pulse Location Monitor [Blood Pressure] -Blood Pressure (90/60-120/80) 141/77 H -Blood Pressure Mean (mm Hg) 98 -Source Monitor Pain Scale: 0-10 Numeric [Pain] -Is Patient Pain Free? Yes WC - Visit Discharge [Visit Discharge Information] -Discharge Condition Stable -Ambulatory Status Ambulatory -Transportation Private Auto Debridement Note Post-Debridement Measurements/Treatment WC - Nurse 2 - General Ulcer CM Notes Start: 07/08/20 08:09 Freq: Status: Active Protocol: Activity Type Activity Date Activity User E-Sign Co-Sign Detail Recorded Client Recorded Date Recorded By Document 07/08/20 08:14 PL [id number] 07/08/20 08:15 PL Document 07/15/20 08:15 PL [id number] 07/15/20 08:16 PL 07/08/20 07/15/20 08:14 08:15 Wound Center Nurse 2 #1 Lateral LLE -Time 08:09 08:10 -Correct Patient Yes Yes -Correct Side, Site, Position Yes Yes -Correct Procedure Yes Yes -Procedure Performed Yes Yes -Type of Procedure Debridement Debridement -Clinical Debridement Subcutaneous Subcutaneous -Tissue Removed Subcutaneous Subcutaneous -Post Debridement (cm) - Length 2.1 1 -Post Debridement (cm) - Width 2.1 0.5 -Post Debridement (cm) - Depth 0.2 0.1 -Total Square (Post) (cm) 4.41 0.5 -Area of Debridement (cm) - Length 2.1 1 -Area of Debridement (cm) - Width 2.1 0.5 -Total Square (Area) (cm) 4.41 0.5 -Tunneling No No -Undermining/Tunneling No No -Circular Undermining No No -Wound/Ulcer Outcome Not Healed Not Healed -Ulcer Cleansing Rinsed/ Irrigated with Saline -Foul Odor after Cleansing No -Bioengineered Tissue No No -Debridement - Subq, 1st 20sq cm Yes Yes Pain Scale: 0-10 Numeric Is Patient Pain Free? Yes Yes - Nurse 3 - General Ulcer D/C NN Start: 07/08/20 08:09 Freq: Status: Active Protocol: Activity Type Activity Date Activity User E-Sign Co-Sign Detail Recorded Client Recorded Date Recorded By Document 07/08/20 16:48 PL [id number] 07/08/20 16:58 PL Document 07/15/20 08:23 DL [id number] 07/15/20 08:24 DL 07/08/20 07/15/20 16:48 08:23 Wound Care Nurse 3 #1 Lateral LLE -Ulcer Cleansing Rinsed/ Rinsed/ Irrigated with Irrigated with Saline Saline -Foul Odor after Cleansing No No -Primary Dressing Applied Promogran -Other Dressing promogran -Primary Dressing Covered/Secured with Dry Gauze, Dry Gauze, Secured with Secured with Tape Tape -Other Covering surepress -Promogran 1 Left -Compression Wrap Surepress ($) Surepress ($) Treatment Response Procedure Tolerated Well Vital Signs Pulse Rate (60-100) 90 Pulse Location Monitor Blood Pressure (90/60-120/80) 141/77 H Blood Pressure Mean (mm Hg) 98 Source Monitor Pain Scale: 0-10 Numeric Is Patient Pain Free? Yes Yes WC - Visit Discharge Discharge Condition Stable Stable Ambulatory Status Ambulatory Ambulatory Transportation Private Auto Private Auto Clinical Summary of Care Provided Yes Assessment/Plan Active Problems Leg swelling (Chronic) Leg edema (Chronic) Abscess of left leg (Chronic) Surgical wound present (Chronic) Chronic venous insufficiency (Chronic) 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 He was hospitalized for approximately 5 days, and underwent incision and drainage of the abscess. He presented here for definitive management. At the time of his initial presentation, the patient was noted to have a large amount of frankly necrotic and nonviable tissue present at the site of his former abscess, with some tunneling as well. The patient also suffers from longstanding swelling and edema of his lower extremities, and is known to have a history of superficial thrombophlebitis in the left lower extremity previously. Physical findings suggest longstanding chronic venous insufficiency. The patient has undergone a battery of diagnostic testing. An x-ray of the left tibia/fibula shows soft tissue changes, but no other abnormalities. Laboratory results from 03/20/2020 are as follows: White blood count 6.0, hemoglobin 14.4, hematocrit 44.7, platelets 247,000, sodium 137, potassium 4.1, chloride 104, BUN 20, creatinine 0.76, glucose 127, calcium 9.1, total bilirubin 0.60, AST 14, ALT 31, alkaline phosphatase 57, total protein 7.6, albumin 4.1, prealbumin 29.2. Recently, a noninvasive lower extremity arterial study revealed no evidence of significant arterial occlusive disease in the lower extremities. A venous duplex examination revealed incompetence of the great saphenous veins bilaterally. At this juncture, the patient appears to be progressing well, with a progressive decrease in the size and depth of his wound. Undermining posteriorly is resolved. Plan: The patient has been advised to continue conservative treatment measures. These are to include leg elevation. He is to continue sleeping on a flat mattress at night. His legs are to be elevated to heart level, or higher, even during daytime hours. This is to be implemented as much as possible. The patient has been advised to refrain from prolonged, idle standing and sitting. Activity has been encouraged. Implementation of the calf and foot muscle pumps has been explained. Weight loss is also been recommended. We are to continue compression by means of SurePress wraps to both lower extremities. The nonviable and necrotic tissue has been removed from the patient's wound by means of excisional and enzymatic debridements. We initiated the use of a Snap VAC, but have been using Promogran topically on a daily basis recently. The patient has continued to do well. We are to continue with the use of Promogran for now. We are to seek approval for the use of a skin substitute. We will seek preauthorization with the patient's insurance company. The patient is to return in 1 week for reassessment. It appears as though the Lotrisone cream 1%, prescribed last week, has resulted in resolution of the periwound skin irritation which had been noted. The patient will return for his routine physician assessment in 1 week. Once again, we have reinforced the need for compression, elevation, avoidance of prolonged idle sitting, etc. We will cont inue to monitor the patient's wound serially, and to assess the patient's progress. Patient smokes rarely, but has been advised to refrain from his smoking habit. Influenza vaccine was not administered today. Patient stands 5 feet 10 inches tall. He weighs 246 pounds. His BMI is 35.3, which places him in a class II obesity category. Weight loss has been recommended, in collaboration with the patient's primary care physician has been advised.
--- NOTE | 2020-07-15 10:50 | PCM.WC.HP ---
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 Code(s): I87.093 - Postthrombotic syndrome with other complications of bilateral lower extremity (7) Hyperpigmentation of skin Status: Chronic Code(s): L81.9 - Disorder of pigmentation, unspecified (8) Lipodermatosclerosis of both lower extremities Status: Chronic Code(s): I83.11 - Varicose veins of right lower extremity with inflammation; I83.12 - Varicose veins of left lower extremity with inflammation (9) Diallo phlebectatica Status: Chronic (10) Wound of left leg Status: Chronic Qualifiers: Encounter type: subsequent encounter Code(s): S81.802A - Unspecified open wound, left lower leg, initial encounter (11) Necrosis Status: Chronic Code(s): I96 - Gangrene, not elsewhere classified (12) Obesity (BMI 35.0-39.9 without comorbidity) Status: Chronic Code(s): E66.9 - Obesity, unspecified (13) Personal history of thrombophlebitis Status: Chronic Code(s): Z86.72 - Personal history of thrombophlebitis History of Present Illness Date of Service: 07/15/20 Chief Complaint: Open wound of the left lateral calf, status-post incision and drainage of abscess History of Wound: This is a 60-year-old male who was admitted to [facility] approximately 1 month prior to presentation with a large abscess on the left lateral calf. On February 11, 2020, he underwent incision and drainage of the abscess. He spent approximately 5 days in the hospital, and was subsequently discharged on Augmentin. The patient claims to sleep on a flat mattress at night. However, he suffers from chronic swelling and edema in both lower extremities. Additionally, he has a history of superficial thrombophlebitis in the left lower extremity, and has undergone a prior left lower extremity vein stripping procedure in the remote past. Patient has developed chronic skin changes in his lower extremities, which include hyperpigmentation and lipodermatosclerosis in the gaiter areas bilaterally. Patient is also noted to have diallo phlebectatica at ankle level bilaterally. The patient claims to be relatively active. Management the time of presentation included the use of a wet-to-dry gauze packing daily. It is noted that patient underwent a venous duplex examination during his hospitalization recently, that was negative for any evidence of thrombosis, but indicated valvular incompetence of the deep and superficial venous systems bilaterally. 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 Home Medications: Ambulatory Orders Medication Instructions Recorded Augmentin 875-125 Tablet 875 mg PO BID 03/18/20 Rosuvastatin Calcium [Crestor] 20 mg PO DAILY 03/18/20 - Family History Paternal - - Patient's father at the age of 72 with a history of cerebrovascular accident and venous disease. Patient's mother at the age of 90, of old age. Smoking Status: Light Smoker (<10/day) Tobacco Use: Cigarettes Review of Systems Constitutional: Denies: Chills, Fever, Weight Change Eyes: Denies: Pain, Vision Change HEENT: Denies: Difficulty Hearing, Difficulty Swallowing, Sinus Congestion Cardiovascular: Denies: Chest Pain, Palpitations Respiratory: Denies: Cough, Shortness of Breath Gastrointestinal: Denies: Diarrhea, Nausea, Vomiting Genitourinary: Denies: Dysuria, Hematuria Endocrine: Denies: Heat/ Cold Intolerance, Polydipsia, Polyuria Hematologic/ Lymphatic: Denies: Easy Bruising, Easy Bleeding - Physical Exam Vital Signs Temp Pulse Resp BP 97.1 F L 90 18 141/77 H 07/15/20 07:51 07/15/20 08:23 07/15/20 07:51 07/15/20 08:23 General: Alert, Oriented x3, Cooperative, No apparent distress, Well developed, Well nourished HEENT: Atraumatic, PERRLA, EOMI, Normocephalic Oral: Moist Mucosa Neck: No JVD Lungs: Normal air movement Abdomen: Non-Distended Extremities: No clubbing, No cyanosis, No edema, No Calf Tenderness, - - There is no significant swelling or edema noted in the patient's left lower extremity. The wound on the left lateral calf persists, but is significantly smaller in size. Dimensions are documented elsewhere. There is a small amount of bioburden. The base of the wound is generally pink and healthy Skin: No rashes Wound Measurements and Assessment WC - Nurse 1 - General Ulcer Measurement Start: 07/08/20 08:09 Freq: Status: Active Protocol: Activity Type Activity Date Activity User E-Sign Co-Sign Detail Recorded Client Recorded Date Recorded By Document 07/15/20 07:51 PL [id number] 07/15/20 08:00 PL 07/15/20 07:51 Wound Center Nurse 1 [Ulcer Assessment] #1 Lateral LLE -Combined with other wound No -Current Size (cm) - Length 1.0 -Current Size (cm) - Width 0.8 -Current Size (cm) - Depth 0.1 -Total Square Cm 0.80 -Photo Taken No -Epithelialization None Present -Tunneling No -Undermining/Tunneling No -Exudate Amt Medium -Exudate Type Serosanguineous -Granulation Amt Large (67-100%) -Granulation Quality Malone -Slough/Fibrin No -Necrosis Amt Small (1-33%) -Necrotic Tissue Type Adherent Slough -Texture (Lois-wound Skin Appearance) No Abnormality -Moisture (Lois-wound Skin Appearance No Abnormality ) -Color (Lois-wound Skin Appearance) No Abnormality -Temperature (Lois-wound Skin No Abnormality Appearance) (Pt Warm) -Ulcer Cleansing Rinsed/ Irrigated with Saline -Foul Odor after Cleansing No -Anesthetic Used 5% Lidocaine Gel [Edema Assessment] -Right Calf (cm) 42 -Point of measurement (cm from the 34 medial instep) -Right Ankle (cm) 26 -Point of Measurement (cm from the 12 medial instep) WC - Nurse 2 - General Ulcer CM Notes Start: 07/08/20 08:09 Freq: Status: Active Protocol: Activity Type Activity Date Activity User E-Sign Co-Sign Detail Recorded Client Recorded Date Recorded By Document 07/15/20 08:15 PL [id number] 07/15/20 08:16 PL 07/15/20 08:15 Wound Center Nurse 2 [Procedure/Treatment] #1 Lateral LLE -Time 08:10 -Correct Patient Yes -Correct Side, Site, Position Yes -Correct Procedure Yes -Procedure Performed Yes -Type of Procedure Debridement -Clinical Debridement Subcutaneous -Tissue Removed Subcutaneous -Post Debridement (cm) - Length 1 -Post Debridement (cm) - Width 0.5 -Post Debridement (cm) - Depth 0.1 -Total Square (Post) (cm) 0.5 -Area of Debridement (cm) - Length 1 -Area of Debridement (cm) - Width 0.5 -Total Square (Area) (cm) 0.5 -Tunneling No -Undermining/Tunneling No -Circular Undermining No -Wound/Ulcer Outcome Not Healed -Bioengineered Tissue No -Debridement - Subq, 1st 20sq cm Yes [See Physician Procedure note for Specifics] Pain Scale: 0-10 Numeric [Pain] -Is Patient Pain Free? Yes KISHA - Nurse 3 - General Ulcer D/C NN Start: 07/08/20 08:09 Freq: Status: Active Protocol: Activity Type Activity Date Activity User E-Sign Co-Sign Detail Recorded Client Recorded Date Recorded By Document 07/15/20 08:23 DL [id number] 07/15/20 08:24 DL 07/15/20 08:23 Wound Care Nurse 3 [Wound Dressing] #1 Lateral LLE -Ulcer Cleansing Rinsed/ Irrigated with Saline -Foul Odor after Cleansing No -Other Dressing promogran -Primary Dressing Covered/Secured Dry Gauze, with Secured with Tape -Other Covering surepress [Compression Applied] Left -Compression Wrap Surepress ($) [Post Procedure Tolerated] -Treatment Response Procedure Tolerated Well Vital Signs [Pulse] -Pulse Rate (60-100) 90 -Pulse Location Monitor [Blood Pressure] -Blood Pressure (90/60-120/80) 141/77 H -Blood Pressure Mean (mm Hg) 98 -Source Monitor Pain Scale: 0-10 Numeric [Pain] -Is Patient Pain Free? Yes WC - Visit Discharge [Visit Discharge Information] -Discharge Condition Stable -Ambulatory Status Ambulatory -Transportation Private Auto Musculoskeletal: No Muscle Wasting Neurological: Cranial nerves II-XII grossly intact, Neuro grossly intact Psych/Mental Status: Normal Affect, Appropriate, Alert and oriented to time, place, person, mood and affect Debridement Note Post-Debridement Measurements/Treatment WC - Nurse 2 - General Ulcer CM Notes Start: 07/08/20 08:09 Freq: Status: Active Protocol: Activity Type Activity Date Activity User E-Sign Co-Sign Detail Recorded Client Recorded Date Recorded By Document 07/08/20 08:14 PL [id number] 07/08/20 08:15 PL Document 07/15/20 08:15 PL [id number] 07/15/20 08:16 PL 07/08/20 07/15/20 08:14 08:15 Wound Center Nurse 2 #1 Lateral LLE -Time 08:09 08:10 -Correct Patient Yes Yes -Correct Side, Site, Position Yes Yes -Correct Procedure Yes Yes -Procedure Performed Yes Yes -Type of Procedure Debridement Debridement -Clinical Debridement Subcutaneous Subcutaneous -Tissue Removed Subcutaneous Subcutaneous -Post Debridement (cm) - Length 2.1 1 -Post Debridement (cm) - Width 2.1 0.5 -Post Debridement (cm) - Depth 0.2 0.1 -Total Square (Post) (cm) 4.41 0.5 -Area of Debridement (cm) - Length 2.1 1 -Area of Debridement (cm) - Width 2.1 0.5 -Total Square (Area) (cm) 4.41 0.5 -Tunneling No No -Undermining/Tunneling No No -Circular Undermining No No -Wound/Ulcer Outcome Not Healed Not Healed -Ulcer Cleansing Rinsed/ Irrigated with Saline -Foul Odor after Cleansing No -Bioengineered Tissue No No -Debridement - Subq, 1st 20sq cm Yes Yes Pain Scale: 0-10 Numeric Is Patient Pain Free? Yes Yes - Nurse 3 - General Ulcer D/C NN Start: 07/08/20 08:09 Freq: Status: Active Protocol: Activity Type Activity Date Activity User E-Sign Co-Sign Detail Recorded Client Recorded Date Recorded By Document 07/08/20 16:48 PL [id number] 07/08/20 16:58 PL Document 07/15/20 08:23 DL [id number] 07/15/20 08:24 DL 07/08/20 07/15/20 16:48 08:23 Wound Care Nurse 3 #1 Lateral LLE -Ulcer Cleansing Rinsed/ Rinsed/ Irrigated with Irrigated with Saline Saline -Foul Odor after Cleansing No No -Primary Dressing Applied Promogran -Other Dressing promogran -Primary Dressing Covered/Secured with Dry Gauze, Dry Gauze, Secured with Secured with Tape Tape -Other Covering surepress -Promogran 1 Left -Compression Wrap Surepress ($) Surepress ($) Treatment Response Procedure Tolerated Well Vital Signs Pulse Rate (60-100) 90 Pulse Location Monitor Blood Pressure (90/60-120/80) 141/77 H Blood Pressure Mean (mm Hg) 98 Source Monitor Pain Scale: 0-10 Numeric Is Patient Pain Free? Yes Yes WC - Visit Discharge Discharge Condition Stable Stable Ambulatory Status Ambulatory Ambulatory Transportation Private Auto Private Auto Clinical Summary of Care Provided Yes Laterality: Left - Lateral calf Type of Debridement: Excisional debridement Anesthesia Used: 5% Lidocaine Gel Depth: Down to and including healthy tissue, in the subcutaneous layer Percentage of wound debrided: 100 Instrument Used: 5mm curette Tissue Removed: Bioburden Severity: Fat Layer Exposed Amount of bleeding with debridement: Mild Bleeding Controlled with: Compression and gauze Patient tolerated procedure well Assessment/Plan Active Problems Leg swelling (Chronic) Leg edema (Chronic) Abscess of left leg (Chronic) Surgical wound present (Chronic) Chronic venous insufficiency (Chronic) 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 He was hospitalized for approximately 5 days, and underwent incision and drainage of the abscess. He presented here for definitive management. At the time of his initial presentation, the patient was noted to have a large amount of frankly necrotic and nonviable tissue present at the site of his former abscess, with some tunneling as well. The patient also suffers from longstanding swelling and edema of his lower extremities, and is known to have a history of superficial thrombophlebitis in the left lower extremity previously. Physical findings suggest longstanding chronic venous insufficiency. The patient has undergone a battery of diagnostic testing. An x-ray of the left tibia/fibula shows soft tissue changes, but no other abnormalities. Laboratory results from 03/20/2020 are as follows: White blood count 6.0, hemoglobin 14.4, hematocrit 44.7, platelets 247,000, sodium 137, potassium 4.1, chloride 104, BUN 20, creatinine 0.76, glucose 127, calcium 9.1, total bilirubin 0.60, AST 14, ALT 31, alkaline phosphatase 57, total protein 7.6, albumin 4.1, prealbumin 29.2. Recently, a noninvasive lower extremity arterial study revealed no evidence of significant arterial occlusive disease in the lower extremities. A venous duplex examination revealed incompetence of the great saphenous veins bilaterally. At this juncture, the patient appears to be progressing well, with a progressive decrease in the size and depth of his wound. Undermining posteriorly is resolved. Plan: The patient has been advised to continue conservative treatment measures. These are to include leg elevation. He is to continue sleeping on a flat mattress at night. His legs are to be elevated to heart level, or higher, even during daytime hours. This is to be implemented as much as possible. The patient has been advised to refrain from prolonged, idle standing and sitting. Activity has been encouraged. Implementation of the calf and foot muscle pumps has been explained. Weight loss is also been recommended. We are to continue compression by means of SurePress wraps to both lower extremities. The nonviable and necrotic tissue has been removed from the patient's wound by means of excisional and enzymatic debridements. We initiated the use of a Snap VAC, but have been using Promogran topically on a daily basis recently. The patient has continued to do well. We are to continue with the use of Promogran for now. The patient is to return in 1 week for reassessment. Once again, we have reinforced the need for compression, elevation, avoidance of prolonged idle sitting, etc. We will continue to monitor the patient's wound serially, and to assess the patient's progress. Patient smokes rarely, but has been advised to refrain from his smoking habit. Influenza vaccine was not administered today. Patient stands 5 feet 10 inches tall. He weighs 246 pounds. His BMI is 35.3, which places him in a class II obesity category. Weight loss has been recommended, in collaboration with the patient's primary care physician has been advised. Sections of this document may be incomplete due to character limits recently imposed by [employer]. As a result, there may be incomplete sentences, inadequate documentation, fragmented words, etc.
[2020-07-22 07:53] VITALS: BP 142/75; PULSE 95; RESP 18; TEMP 36.6; BMI 35.3
--- NOTE | 2020-07-22 08:11 | PCM.WC.HP ---
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 Code(s): I87.093 - Postthrombotic syndrome with other complications of bilateral lower extremity (7) Hyperpigmentation of skin Status: Chronic Code(s): L81.9 - Disorder of pigmentation, unspecified (8) Lipodermatosclerosis of both lower extremities Status: Chronic Code(s): I83.11 - Varicose veins of right lower extremity with inflammation; I83.12 - Varicose veins of left lower extremity with inflammation (9) Diallo phlebectatica Status: Chronic (10) Wound of left leg Status: Chronic Qualifiers: Encounter type: subsequent encounter Code(s): S81.802A - Unspecified open wound, left lower leg, initial encounter (11) Necrosis Status: Chronic Code(s): I96 - Gangrene, not elsewhere classified (12) Obesity (BMI 35.0-39.9 without comorbidity) Status: Chronic Code(s): E66.9 - Obesity, unspecified (13) Personal history of thrombophlebitis Status: Chronic Code(s): Z86.72 - Personal history of thrombophlebitis History of Present Illness Date of Service: 07/22/20 Chief Complaint: Open wound of the left lateral calf, status-post incision and drainage of abscess History of Wound: This is a 60-year-old male who was admitted to [facility] approximately 1 month prior to presentation with a large abscess on the left lateral calf. On February 11, 2020, he underwent incision and drainage of the abscess. He spent approximately 5 days in the hospital, and was subsequently discharged on Augmentin. The patient claims to sleep on a flat mattress at night. However, he suffers from chronic swelling and edema in both lower extremities. Additionally, he has a history of superficial thrombophlebitis in the left lower extremity, and has undergone a prior left lower extremity vein stripping procedure in the remote past. Patient has developed chronic skin changes in his lower extremities, which include hyperpigmentation and lipodermatosclerosis in the gaiter areas bilaterally. Patient is also noted to have diallo phlebectatica at ankle level bilaterally. The patient claims to be relatively active. Management the time of presentation included the use of a wet-to-dry gauze packing daily. It is noted that patient underwent a venous duplex examination during his hospitalization recently, that was negative for any evidence of thrombosis, but indicated valvular incompetence of the deep and superficial venous systems bilaterally. 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 Home Medications: Ambulatory Orders Medication Instructions Recorded Augmentin 875-125 Tablet 875 mg PO BID 03/18/20 Rosuvastatin Calcium [Crestor] 20 mg PO DAILY 03/18/20 - Family History Paternal - - Patient's father at the age of 72 with a history of cerebrovascular accident and venous disease. Patient's mother at the age of 90, of old age. Smoking Status: Light Smoker (<10/day) Tobacco Use: Cigarettes Review of Systems Constitutional: Denies: Chills, Fever, Weight Change Eyes: Denies: Pain, Vision Change HEENT: Denies: Difficulty Hearing, Difficulty Swallowing, Sinus Congestion Cardiovascular: Denies: Chest Pain, Palpitations Respiratory: Denies: Cough, Shortness of Breath Gastrointestinal: Denies: Diarrhea, Nausea, Vomiting Genitourinary: Denies: Dysuria, Hematuria Endocrine: Denies: Heat/ Cold Intolerance, Polydipsia, Polyuria Hematologic/ Lymphatic: Denies: Easy Bruising, Easy Bleeding - Physical Exam Vital Signs Temp Pulse Resp BP 97.8 F 95 18 142/75 H 07/22/20 07:53 07/22/20 07:53 07/22/20 07:53 07/22/20 07:53 General: Alert, Oriented x3, Cooperative, No apparent distress, Well developed, Well nourished HEENT: Atraumatic, PERRLA, EOMI, Normocephalic Oral: Moist Mucosa Neck: No JVD Lungs: Normal air movement Abdomen: Non-Distended, Obese Extremities: No clubbing, No cyanosis, No edema, No Calf Tenderness Addt'l Extremities Findings: The wound on the left lateral calf persists. It is visually smaller in size, and measures smaller as well. Dimensions are documented elsewhere. There is no sign of infection or cellulitis. There is a small amount of bioburden. There is no undermining. Skin: No rashes Wound Measurements and Assessment WC - Nurse 1 - General Ulcer Measurement Start: 07/08/20 08:09 Freq: Status: Active Protocol: Activity Type Activity Date Activity User E-Sign Co-Sign Detail Recorded Client Recorded Date Recorded By Document 07/22/20 07:53 PL [id number] 07/22/20 08:01 PL 07/22/20 07:53 Wound Center Nurse 1 [Ulcer Assessment] #1 Lateral LLE -Combined with other wound No -Current Size (cm) - Length 1.5 -Current Size (cm) - Width 1.5 -Current Size (cm) - Depth 0.2 -Total Square Cm 2.25 -Photo Taken No -Epithelialization None Present -Tunneling No -Undermining/Tunneling No -Circular Undermining No -Exudate Amt Medium -Exudate Type Serosanguineous -Granulation Amt Medium (34-66%) -Granulation Quality [place] -Slough/Fibrin Yes -Necrosis Amt Medium (34-66%) -Necrotic Tissue Type Adherent Slough -Texture (Lois-wound Skin Appearance) No Abnormality -Moisture (Lois-wound Skin Appearance No Abnormality ) -Color (Lois-wound Skin Appearance) No Abnormality -Temperature (Lois-wound Skin No Abnormality Appearance) (Pt Warm) -Tenderness on Palpation (Lois-wound No Skin Appearance) -Ulcer Cleansing Rinsed/ Irrigated with Saline -Foul Odor after Cleansing No -Anesthetic Used 5% Lidocaine Gel [Edema Assessment] -Left Calf (cm) 38 -Point of measurement (cm from the 30 medial instep) -Left Ankle (cm) 27 -Point of Measurement (cm from the 17 medial instep) Musculoskeletal: No Muscle Wasting Neurological: Cranial nerves II-XII grossly intact, Neuro grossly intact Psych/Mental Status: Normal Affect, Appropriate, Alert and oriented to time, place, person, mood and affect Debridement Note Post-Debridement Measurements/Treatment WC - Nurse 2 - General Ulcer CM Notes Start: 07/08/20 08:09 Freq: Status: Active Protocol: Activity Type Activity Date Activity User E-Sign Co-Sign Detail Recorded Client Recorded Date Recorded By Document 07/08/20 08:14 PL [id number] 07/08/20 08:15 PL Document 07/15/20 08:15 PL [id number] 07/15/20 08:16 PL 07/08/20 07/15/20 08:14 08:15 Wound Center Nurse 2 #1 Lateral LLE -Time 08:09 08:10 -Correct Patient Yes Yes -Correct Side, Site, Position Yes Yes -Correct Procedure Yes Yes -Procedure Performed Yes Yes -Type of Procedure Debridement Debridement -Clinical Debridement Subcutaneous Subcutaneous -Tissue Removed Subcutaneous Subcutaneous -Post Debridement (cm) - Length 2.1 1 -Post Debridement (cm) - Width 2.1 0.5 -Post Debridement (cm) - Depth 0.2 0.1 -Total Square (Post) (cm) 4.41 0.5 -Area of Debridement (cm) - Length 2.1 1 -Area of Debridement (cm) - Width 2.1 0.5 -Total Square (Area) (cm) 4.41 0.5 -Tunneling No No -Undermining/Tunneling No No -Circular Undermining No No -Wound/Ulcer Outcome Not Healed Not Healed -Ulcer Cleansing Rinsed/ Irrigated with Saline -Foul Odor after Cleansing No -Bioengineered Tissue No No -Debridement - Subq, 1st 20sq cm Yes Yes Pain Scale: 0-10 Numeric Is Patient Pain Free? Yes Yes KISHA - Nurse 3 - General Ulcer D/C NN Start: 07/08/20 08:09 Freq: Status: Active Protocol: Activity Type Activity Date Activity User E-Sign Co-Sign Detail Recorded Client Recorded Date Recorded By Document 07/08/20 16:48 PL [id number] 07/08/20 16:58 PL Document 07/15/20 08:23 DL [id number] 07/15/20 08:24 DL 07/08/20 07/15/20 16:48 08:23 Wound Care Nurse 3 #1 Lateral LLE -Ulcer Cleansing Rinsed/ Rinsed/ Irrigated with Irrigated with Saline Saline -Foul Odor after Cleansing No No -Primary Dressing Applied Promogran -Other Dressing promogran -Primary Dressing Covered/Secured with Dry Gauze, Dry Gauze, Secured with Secured with Tape Tape -Other Covering surepress -Promogran 1 Left -Compression Wrap Surepress ($) Surepress ($) Treatment Response Procedure Tolerated Well Vital Signs Pulse Rate (60-100) 90 Pulse Location Monitor Blood Pressure (90/60-120/80) 141/77 H Blood Pressure Mean (mm Hg) 98 Source Monitor Pain Scale: 0-10 Numeric Is Patient Pain Free? Yes Yes WC - Visit Discharge Discharge Condition Stable Stable Ambulatory Status Ambulatory Ambulatory Transportation Private Auto Private Auto Clinical Summary of Care Provided Yes Laterality: Left - Lateral calf Type of Debridement: Excisional debridement Anesthesia Used: 5% Lidocaine Gel Depth: Down to and including healthy tissue, in the subcutaneous layer Percentage of wound debrided: 100 Instrument Used: 5mm curette Tissue Removed: Bioburden Severity: Fat Layer Exposed Amount of bleeding with debridement: Mild Bleeding Controlled with: Compression and gauze Patient tolerated procedure well Assessment/Plan Active Problems Leg swelling (Chronic) Leg edema (Chronic) Abscess of left leg (Chronic) Surgical wound present (Chronic) Chronic venous insufficiency (Chronic) 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 He was hospitalized for approximately 5 days, and underwent incision and drainage of the abscess. He presented here for definitive management. At the time of his initial presentation, the patient was noted to have a large amount of frankly necrotic and nonviable tissue present at the site of his former abscess, with some tunneling as well. The patient also suffers from longstanding swelling and edema of his lower extremities, and is known to have a history of superficial thrombophlebitis in the left lower extremity previously. Physical findings suggest longstanding chronic venous insufficiency. The patient has undergone a battery of diagnostic testing. An x-ray of the left tibia/fibula shows soft tissue changes, but no other abnormalities. Laboratory results from 03/20/2020 are as follows: White blood count 6.0, hemoglobin 14.4, hematocrit 44.7, platelets 247,000, sodium 137, potassium 4.1, chloride 104, BUN 20, creatinine 0.76, glucose 127, calcium 9.1, total bilirubin 0.60, AST 14, ALT 31, alkaline phosphatase 57, total protein 7.6, albumin 4.1, prealbumin 29.2. Recently, a noninvasive lower extremity arterial study revealed no evidence of significant arterial occlusive disease in the lower extremities. A venous duplex examination revealed incompetence of the great saphenous veins bilaterally. At this juncture, the patient appears to be progressing well, with a progressive decrease in the size and depth of his wound. Undermining posteriorly is resolved. Plan: The patient has been advised to continue conservative treatment measures. These are to include leg elevation. He is to continue sleeping on a flat mattress at night. His legs are to be elevated to heart level, or higher, even during daytime hours. This is to be implemented as much as possible. The patient has been advised to refrain from prolonged, idle standing and sitting. Activity has been encouraged. Implementation of the calf and foot muscle pumps has been explained. Weight loss is also been recommended. We are to continue compression by means of SurePress wraps to both lower extremities. The nonviable and necrotic tissue has been removed from the patient's wound by means of excisional and enzymatic debridements. We initiated the use of a Snap VAC, but have been using Promogran topically on a daily basis recently. The patient has continued to do well. We are to continue with the use of Promogran for now. The patient is to return in 1 week for reassessment. Once again, we have reinforced the need for compression, elevation, avoidance of prolonged idle sitting, etc. We will continue to monitor the patient's wound serially, and to assess the patient's progress. Patient smokes rarely, but has been advised to refrain from his smoking habit. Influenza vaccine was not administered today. Patient stands 5 feet 10 inches tall. He weighs 246 pounds. His BMI is 35.3, which places him in a class II obesity category. Weight loss has been recommended, in collaboration with the patient's primary care physician has been advised.
[2020-07-22 08:19] VITALS: BP 150/74; PULSE 88
[2020-07-29 08:01] VITALS: BP 147/87; PULSE 99; RESP 17; TEMP 36.3; BMI 35.3
--- NOTE | 2020-07-29 08:23 | PCM.WC.HP ---
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 Code(s): I87.093 - Postthrombotic syndrome with other complications of bilateral lower extremity (7) Hyperpigmentation of skin Status: Chronic Code(s): L81.9 - Disorder of pigmentation, unspecified (8) Lipodermatosclerosis of both lower extremities Status: Chronic Code(s): I83.11 - Varicose veins of right lower extremity with inflammation; I83.12 - Varicose veins of left lower extremity with inflammation (9) Diallo phlebectatica Status: Chronic (10) Wound of left leg Status: Chronic Qualifiers: Encounter type: subsequent encounter Code(s): S81.802A - Unspecified open wound, left lower leg, initial encounter (11) Necrosis Status: Chronic Code(s): I96 - Gangrene, not elsewhere classified (12) Obesity (BMI 35.0-39.9 without comorbidity) Status: Chronic Code(s): E66.9 - Obesity, unspecified (13) Personal history of thrombophlebitis Status: Chronic Code(s): Z86.72 - Personal history of thrombophlebitis History of Present Illness Date of Service: 07/29/20 Chief Complaint: Open wound of the left lateral calf, status-post incision and drainage of abscess History of Wound: This is a 60-year-old male who was admitted to [facility] approximately 1 month prior to presentation with a large abscess on the left lateral calf. On February 11, 2020, he underwent incision and drainage of the abscess. He spent approximately 5 days in the hospital, and was subsequently discharged on Augmentin. The patient claims to sleep on a flat mattress at night. However, he suffers from chronic swelling and edema in both lower extremities. Additionally, he has a history of superficial thrombophlebitis in the left lower extremity, and has undergone a prior left lower extremity vein stripping procedure in the remote past. Patient has developed chronic skin changes in his lower extremities, which include hyperpigmentation and lipodermatosclerosis in the gaiter areas bilaterally. Patient is also noted to have diallo phlebectatica at ankle level bilaterally. The patient claims to be relatively active. Management the time of presentation included the use of a wet-to-dry gauze packing daily. It is noted that patient underwent a venous duplex examination during his hospitalization recently, that was negative for any evidence of thrombosis, but indicated valvular incompetence of the deep and superficial venous systems bilaterally. 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 Home Medications: Ambulatory Orders Medication Instructions Recorded Augmentin 875-125 Tablet 875 mg PO BID 03/18/20 Rosuvastatin Calcium [Crestor] 20 mg PO DAILY 03/18/20 - Family History Paternal - - Patient's father at the age of 72 with a history of cerebrovascular accident and venous disease. Patient's mother at the age of 90, of old age. Smoking Status: Light Smoker (<10/day) Tobacco Use: Cigarettes Review of Systems Constitutional: Denies: Chills, Fever, Weight Change Eyes: Denies: Pain, Vision Change HEENT: Denies: Difficulty Hearing, Difficulty Swallowing, Sinus Congestion Cardiovascular: Denies: Chest Pain, Palpitations Respiratory: Denies: Cough, Shortness of Breath Gastrointestinal: Denies: Diarrhea, Nausea, Vomiting Genitourinary: Denies: Dysuria, Hematuria Endocrine: Denies: Heat/ Cold Intolerance, Polydipsia, Polyuria Hematologic/ Lymphatic: Denies: Easy Bruising, Easy Bleeding - Physical Exam Vital Signs Temp Pulse Resp BP 97.3 F L 99 17 147/87 H 07/29/20 08:01 07/29/20 08:01 07/29/20 08:01 07/29/20 08:01 General: Alert, Oriented x3, Cooperative, No apparent distress, Well developed, Well nourished HEENT: Atraumatic, PERRLA, EOMI, Normocephalic Oral: Moist Mucosa Neck: No JVD Lungs: Normal air movement Abdomen: Non-Distended Extremities: No clubbing, No cyanosis, No Calf Tenderness, - - Very slight swelling and edema are noted in the patient's lower extremities. Scattered large varicosities are noted in the left lower extremity. Hemosiderin staining and lipodermatosclerosis are noted in the gaiter areas bilaterally. Addt'l Wound Findings: The wound on the patient's left lateral calf persists. However, it is significantly smaller in size. It is visually smaller. Additionally, dimensions confirm the decrease in size. The base of the wound is pink and healthy in appearance, with a small amount of bioburden. There is no sign of infection or cellulitis. Wound margins are well beveled. Skin: No rashes Wound Measurements and Assessment WC - Nurse 1 - General Ulcer Measurement Start: 07/08/20 08:09 Freq: Status: Active Protocol: Activity Type Activity Date Activity User E-Sign Co-Sign Detail Recorded Client Recorded Date Recorded By Document 07/29/20 08:01 OR [id number] 07/29/20 08:09 MS 07/29/20 08:01 Wound Center Nurse 1 [Ulcer Assessment] #1 Lateral LLE -Current Size (cm) - Length 1 -Current Size (cm) - Width 0.5 -Current Size (cm) - Depth 0.1 -Total Square Cm 0.5 -Exudate Amt Medium -Wound Margin Distinct, Outline Attached -Granulation Amt Large (67-100%) -Slough/Fibrin Yes -Necrosis Amt Small (1-33%) -Necrotic Tissue Type Adherent Slough -Temperature (Lois-wound Skin No Abnormality Appearance) (Pt Warm) -Tenderness on Palpation (Lois-wound No Skin Appearance) -Ulcer Cleansing Rinsed/ Irrigated with Saline -Foul Odor after Cleansing No -Anesthetic Used 5% Lidocaine Gel [Edema Assessment] -Left Calf (cm) 40 -Point of measurement (cm from the 32 medial instep) -Left Ankle (cm) 27 -Point of Measurement (cm from the 17 medial instep) Musculoskeletal: No Muscle Wasting Neurological: Cranial nerves II-XII grossly intact, Neuro grossly intact Psych/Mental Status: Normal Affect, Appropriate, Alert and oriented to time, place, person, mood and affect Debridement Note Post-Debridement Measurements/Treatment WC - Nurse 2 - General Ulcer CM Notes Start: 07/08/20 08:09 Freq: Status: Active Protocol: Activity Type Activity Date Activity User E-Sign Co-Sign Detail Recorded Client Recorded Date Recorded By Document 07/08/20 08:14 PL [id number] 07/08/20 08:15 PL Document 07/15/20 08:15 PL [id number] 07/15/20 08:16 PL Document 07/22/20 12:49 PL [id number] 07/22/20 12:55 PL 07/08/20 07/15/20 07/22/20 08:14 08:15 12:49 Wound Center Nurse 2 #1 Lateral LLE -Time 08:09 08:10 08:07 -Correct Patient Yes Yes Yes -Correct Side, Site, Position Yes Yes Yes -Correct Procedure Yes Yes Yes -Procedure Performed Yes Yes Yes -Type of Procedure Debridement Debridement Debridement -Clinical Debridement Subcutaneous Subcutaneous Subcutaneous -Tissue Removed Subcutaneous Subcutaneous Subcutaneous -Post Debridement (cm) - Length 2.1 1 1.5 -Post Debridement (cm) - Width 2.1 0.5 1.5 -Post Debridement (cm) - Depth 0.2 0.1 0.2 -Total Square (Post) (cm) 4.41 0.5 2.25 -Area of Debridement (cm) - Length 2.1 1 1.5 -Area of Debridement (cm) - Width 2.1 0.5 1.5 -Total Square (Area) (cm) 4.41 0.5 2.25 -Tunneling No No No -Undermining/Tunneling No No No -Circular Undermining No No No -Wound/Ulcer Outcome Not Healed Not Healed Not Healed -Ulcer Cleansing Rinsed/ Rinsed/ Irrigated with Irrigated with Saline Saline -Foul Odor after Cleansing No No -Bioengineered Tissue No No No -Debridement - Subq, 1st 20sq cm Yes Yes Yes Pain Scale: 0-10 Numeric Is Patient Pain Free? Yes Yes Yes WC - Nurse 3 - General Ulcer D/C NN Start: 07/08/20 08:09 Freq: Status: Active Protocol: Activity Type Activity Date Activity User E-Sign Co-Sign Detail Recorded Client Recorded Date Recorded By Document 07/08/20 16:48 PL [id number] 07/08/20 16:58 PL Document 07/15/20 08:23 DL [id number] 07/15/20 08:24 DL Document 07/22/20 08:19 DL [id number] 07/22/20 08:20 DL 07/08/20 07/15/20 07/22/20 16:48 08:23 08:19 Wound Care Nurse 3 #1 Lateral LLE -Ulcer Cleansing Rinsed/ Rinsed/ Rinsed/ Irrigated with Irrigated with Irrigated with Saline Saline Saline -Foul Odor after Cleansing No No No -Primary Dressing Applied Promogran -Other Dressing promogran promogran -Primary Dressing Covered/Secured with Dry Gauze, Dry Gauze, Dry Gauze, Secured with Secured with Secured with Tape Tape Tape -Other Covering surepress -Promogran 1 Left -Compression Wrap Surepress ($) Surepress ($) Surepress ($) Treatment Response Procedure Tolerated Well Vital Signs Pulse Rate (60-100) 90 88 Pulse Location Monitor Blood Pressure (90/60-120/80) 141/77 H 150/74 H Blood Pressure Mean (mm Hg) 98 99 Source Monitor Pain Scale: 0-10 Numeric Is Patient Pain Free? Yes Yes Yes WC - Visit Discharge Discharge Condition Stable Stable Stable Ambulatory Status Ambulatory Ambulatory Ambulatory Transportation Private Auto Private Auto Private Auto Clinical Summary of Care Provided Yes Laterality: Left - Lateral calf Type of Debridement: Excisional debridement Anesthesia Used: 5% Lidocaine Gel Depth: Down to and including healthy tissue, in the subcutaneous layer Percentage of wound debrided: 100 Instrument Used: 5mm curette Tissue Removed: Bioburden Severity: Fat Layer Exposed Amount of bleeding with debridement: Mild Bleeding Controlled with: Compression and gauze Patient tolerated procedure well Assessment/Plan Active Problems Leg swelling (Chronic) Leg edema (Chronic) Abscess of left leg (Chronic) Surgical wound present (Chronic) Chronic venous insufficiency (Chronic) 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 He was hospitalized for approximately 5 days, and underwent incision and drainage of the abscess. He presented here for definitive management. At the time of his initial presentation, the patient was noted to have a large amount of frankly necrotic and nonviable tissue present at the site of his former abscess, with some tunneling as well. The patient also suffers from longstanding swelling and edema of his lower extremities, and is known to have a history of superficial thrombophlebitis in the left lower extremity previously. Physical findings suggest longstanding chronic venous insufficiency. The patient has undergone a battery of diagnostic testing. An x-ray of the left tibia/fibula shows soft tissue changes, but no other abnormalities. Laboratory results from 03/20/2020 are as follows: White blood count 6.0, hemoglobin 14.4, hematocrit 44.7, platelets 247,000, sodium 137, potassium 4.1, chloride 104, BUN 20, creatinine 0.76, glucose 127, calcium 9.1, total bilirubin 0.60, AST 14, ALT 31, alkaline phosphatase 57, total protein 7.6, albumin 4.1, prealbumin 29.2. Recently, a noninvasive lower extremity arterial study revealed no evidence of significant arterial occlusive disease in the lower extremities. A venous duplex examination revealed incompetence of the great saphenous veins bilaterally. At this juncture, the patient appears to be progressing well, with a progressive decrease in the size and depth of his wound. Undermining posteriorly is resolved. Plan: The patient has been advised to continue conservative treatment measures. These are to include leg elevation. He is to continue sleeping on a flat mattress at night. His legs are to be elevated to heart level, or higher, even during daytime hours. This is to be implemented as much as possible. The patient has been advised to refrain from prolonged, idle standing and sitting. Activity has been encouraged. Implementation of the calf and foot muscle pumps has been explained. Weight loss is also been recommended. We are to continue compression by means of SurePress wraps to both lower extremities. The nonviable and necrotic tissue has been removed from the patient's wound by means of excisional and enzymatic debridements. We initiated the use of a Snap VAC, but have been using Promogran topically on a daily basis recently. The patient has continued to do well. We are to continue with the use of Promogran for now. The patient is to return in 1 week for reassessment. Once again, we have reinforced the need for compression, elevation, avoidance of prolonged idle sitting, etc. We will continue to monitor the patient's wound serially, and to assess the patient's progress. Patient smokes rarely, but has been advised to refrain from his smoking habit. Influenza vaccine was not administered today. Patient stands 5 feet 10 inches tall. He weighs 246 pounds. His BMI is 35.3, which places him in a class II obesity category. Weight loss has been recommended, in collaboration with the patient's primary care physician has been advised.
[2020-07-29 08:32] VITALS: BP 152/79; PULSE 87
== END 2020-08-02 23:59 ==
LOC: WC 08:00
PROVIDERS: PCP Family Medicine; Referring Provider Surgery; Visit Provider Surgery
DX: R60.0 Localized edema (principal); Z86.72 Personal history of thrombophlebitis; E66.9 Obesity, unspecified; I96 Gangrene, not elsewhere classified; Z68.35 Body mass index [BMI] 35.0-35.9, adult; I83.11 Varicose veins of right lower extremity with inflammation; I83.12 Varicose veins of left lower extremity with inflammation; L81.9 Disorder of pigmentation, unspecified; I87.093 Postthrombotic syndrome with other complications of bilateral lower extremity; L02.416 Cutaneous abscess of left lower limb; M79.89 Other specified soft tissue disorders; F17.210 Nicotine dependence, cigarettes, uncomplicated
CPT/HCPCS: 11042

== ENCOUNTER 2020-08-26 07:45 | Outpatient (RCR) | payer OTHER, SELFPAY ==
[2020-08-03 00:20] VITALS: BP 152/79; PULSE 87; RESP 17; TEMP 36.3
[2020-08-05 08:08] VITALS: BP 133/84; PULSE 90; RESP 18; TEMP 36.3; BMI 35.3
--- NOTE | 2020-08-05 08:19 | HP.PCM_ITS ---
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 Code(s): I87.093 - Postthrombotic syndrome with other complications of bilateral lower extremity (7) Hyperpigmentation of skin Status: Chronic Code(s): L81.9 - Disorder of pigmentation, unspecified (8) Lipodermatosclerosis of both lower extremities Status: Chronic Code(s): I83.11 - Varicose veins of right lower extremity with inflammation; I83.12 - Varicose veins of left lower extremity with inflammation (9) Diallo phlebectatica Status: Chronic (10) Wound of left leg Status: Chronic Qualifiers: Encounter type: subsequent encounter Code(s): S81.802A - Unspecified open wound, left lower leg, initial encounter (11) Necrosis Status: Chronic Code(s): I96 - Gangrene, not elsewhere classified (12) Obesity (BMI 35.0-39.9 without comorbidity) Status: Chronic Code(s): E66.9 - Obesity, unspecified (13) Personal history of thrombophlebitis Status: Chronic Code(s): Z86.72 - Personal history of thrombophlebitis History of Present Illness Date of Service: 08/05/20 Chief Complaint: Open wound of the left lateral calf, status-post incision and drainage of abscess History of Wound: This is a 60-year-old male who was admitted to [facility] approximately 1 month prior to presentation with a large abscess on the left lateral calf. On February 11, 2020, he underwent incision and drainage of the abscess. He spent approximately 5 days in the hospital, and was subsequently discharged on Augmentin. The patient claims to sleep on a flat mattress at night. However, he suffers from chronic swelling and edema in both lower extremities. Additionally, he has a history of superficial thrombophlebitis in the left lower extremity, and has undergone a prior left lower extremity vein stripping procedure in the remote past. Patient has developed chronic skin changes in his lower extremities, which include hyperpigmentation and lipodermatosclerosis in the gaiter areas bilaterally. Patient is also noted to have diallo phlebectatica at ankle level bilaterally. The patient claims to be relatively active. Management the time of presentation included the use of a wet-to-dry gauze packing daily. It is noted that patient underwent a venous duplex examination during his hospitalization recently, that was negative for any evidence of thrombosis, but indicated valvular incompetence of the deep and superficial venous systems bilaterally. 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 Home Medications: Ambulatory Orders Medication Instructions Recorded Augmentin 875-125 Tablet 875 mg PO BID 03/18/20 Rosuvastatin Calcium [Crestor] 20 mg PO DAILY 03/18/20 - Family History Paternal - - Patient's father at the age of 72 with a history of cerebrovascular accident and venous disease. Patient's mother at the age of 90, of old age. Smoking Status: Light Smoker (<10/day) Tobacco Use: Cigarettes Review of Systems Constitutional: Denies: Chills, Fever, Weight Change Eyes: Denies: Pain, Vision Change HEENT: Denies: Difficulty Hearing, Difficulty Swallowing, Sinus Congestion Cardiovascular: Denies: Chest Pain, Palpitations Respiratory: Denies: Cough, Shortness of Breath Gastrointestinal: Denies: Diarrhea, Nausea, Vomiting Genitourinary: Denies: Dysuria, Hematuria Endocrine: Denies: Heat/ Cold Intolerance, Polydipsia, Polyuria Hematologic/ Lymphatic: Denies: Easy Bruising, Easy Bleeding - Physical Exam Vital Signs Temp Pulse Resp BP 97.4 F L 90 18 133/84 H 08/05/20 08:08 08/05/20 08:08 08/05/20 08:08 08/05/20 08:08 General: Alert, Oriented x3, Cooperative, No apparent distress, Well developed, Well nourished HEENT: Atraumatic, PERRLA, EOMI, Normocephalic Oral: Moist Mucosa Neck: No JVD Lungs: Normal air movement Abdomen: Non-Distended Extremities: No clubbing, No cyanosis, No Calf Tenderness, - - Slight swelling and edema are noted in the patient's left lower extremity. Chronic venous changes are noted in the left lower extremity, namely hyperpigmentation and lipodermatosclerosis. Scattered large varicosities are noted in the left lower extremity below the knee. Addt'l Wound Findings: The ulceration on the left lateral calf persists, though appears smaller in size. Dimensions are documented elsewhere. There is no sign of infection or cellulitis. The base of the ulceration is generally pink and healthy in appearance, with a small amount of bioburden. Wound Measurements and Assessment WC - Nurse 1 - General Ulcer Measurement Start: 08/05/20 08:08 Freq: Status: Active Protocol: Activity Type Activity Date Activity User E-Sign Co-Sign Detail Recorded Client Recorded Date Recorded By Document 08/05/20 08:08 DL [id number] 08/05/20 08:10 DL 08/05/20 08:08 Wound Center Nurse 1 [Ulcer Assessment] #1 Lateral LLE -Current Size (cm) - Length 1.3 -Current Size (cm) - Width 1.8 -Current Size (cm) - Depth 0.1 -Total Square Cm 2.34 -Photo Taken No -Classification - Thickness Full Thickness without Exposed Support Structure -Exudate Amt Small -Exudate Type Serosanguineous -Wound Margin Distinct, Outline Attached -Granulation Amt Large (67-100%) -Granulation Quality Red -Necrosis Amt Small (1-33%) -Necrotic Tissue Type Adherent Slough -Structure Exposed N/A -Texture (Lois-wound Skin Appearance) Scarring -Moisture (Lois-wound Skin Appearance No Abnormality ) -Color (Lois-wound Skin Appearance) No Abnormality -Temperature (Lois-wound Skin No Abnormality Appearance) (Pt Warm) -Tenderness on Palpation (Lois-wound No Skin Appearance) -Ulcer Cleansing Wound Cleanser -Foul Odor after Cleansing No -Anesthetic Used 4% Lidocaine Solution [Edema Assessment] -Left Calf (cm) 40 -Left Ankle (cm) 26.6 Musculoskeletal: No Muscle Wasting Neurological: Cranial nerves II-XII grossly intact, Neuro grossly intact Psych/Mental Status: Normal Affect, Appropriate, Alert and oriented to time, place, person, mood and affect Debridement Note Laterality: Left - Lateral calf Type of Debridement: Excisional debridement Anesthesia Used: 5% Lidocaine Gel Depth: Down to and including healthy tissue, in the subcutaneous layer Percentage of wound debrided: 100 Instrument Used: 5mm curette Tissue Removed: Bioburden Severity: Fat Layer Exposed Amount of bleeding with debridement: Mild Bleeding Controlled with: Compression and gauze Patient tolerated procedure well Assessment/Plan Assessment: This is a 60-year-old male who presented elsewhere initially with a large abscess on the left lateral calf. He was hospitalized for approximately 5 days, and underwent incision and drainage of the abscess. He presented here for definitive management. At the time of his initial presentation, the patient was noted to have a large amount of frankly necrotic and nonviable tissue present at the site of his former abscess, with some tunneling as well. The patient also suffers from longstanding swelling and edema of his lower extremities, and is known to have a history of superficial thrombophlebitis in the left lower extremity previously. Physical findings suggest longstanding chronic venous insufficiency. The patient has undergone a battery of diagnostic testing. An x-ray of the left tibia/fibula shows soft tissue changes, but no other abnormalities. Laboratory results from 03/20/2020 are as follows: White blood count 6.0, hemoglobin 14.4, hematocrit 44.7, platelets 247,000, sodium 137, potassium 4.1, chloride 104, BUN 20, creatinine 0.76, glucose 127, calcium 9.1, total bilirubin 0.60, AST 14, ALT 31, alkaline phosphatase 57, total protein 7.6, albumin 4.1, prealbumin 29.2. Recently, a noninvasive lower extremity arterial study revealed no evidence of significant arterial occlusive disease in the lower extremities. A venous duplex examination revealed incompetence of the great saphenous veins bilaterally. At this juncture, the patient appears to be progressing well, with a progressive decrease in the size and depth of his wound. Undermining posteriorly is resolved. Plan: The patient has been advised to continue conservative treatment measures. These are to include leg elevation. He is to continue sleeping on a flat mattress at night. His legs are to be elevated to heart level, or higher, even during daytime hours. This is to be implemented as much as possible. The patient has been advised to refrain from prolonged, idle standing and sitting. Activity has been encouraged. Implementation of the calf and foot muscle pumps has been explained. Weight loss is also been recommended. We are to continue compression by means of SurePress wraps to both lower extremities. However, the patient is to be provided with a prescription for knee-high graduated compression stockings of 20 to 30 mmHg compression, which he is to obtain within the next week. The nonviable and necrotic tissue has been removed from the patient's wound by means of excisional and enzymatic debridements. We initiated the use of a Snap VAC, but have been using Promogran topically on a daily basis recently. The patient has continued to do well. We are to continue with the use of Promogran for now. The patient is to return in 1 week for reassessment. Once again, we have reinforced the need for compression, elevation, avoidance of prolonged idle sitting, etc. We will continue to monitor the patient's wound serially, and to assess the patient's progress. Patient smokes rarely, but has been advised to refrain from his smoking habit. Influenza vaccine was not administered today. Patient stands 5 feet 10 inches tall. He weighs 246 pounds. His BMI is 35.3, which places him in a class II obesity category. Weight loss has been recommended, in collaboration with the patient's primary care physician has been advised.
[2020-08-12 07:52] VITALS: BP 157/77; PULSE 89; RESP 18; TEMP 36.2; BMI 35.3
--- NOTE | 2020-08-12 08:18 | HP.PCM_ITS ---
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 Code(s): I87.093 - Postthrombotic syndrome with other complications of bilateral lower extremity (7) Hyperpigmentation of skin Status: Chronic Code(s): L81.9 - Disorder of pigmentation, unspecified (8) Lipodermatosclerosis of both lower extremities Status: Chronic Code(s): I83.11 - Varicose veins of right lower extremity with inflammation; I83.12 - Varicose veins of left lower extremity with inflammation (9) Diallo phlebectatica Status: Chronic (10) Wound of left leg Status: Chronic Qualifiers: Encounter type: subsequent encounter Code(s): S81.802A - Unspecified open wound, left lower leg, initial encounter (11) Necrosis Status: Chronic Code(s): I96 - Gangrene, not elsewhere classified (12) Obesity (BMI 35.0-39.9 without comorbidity) Status: Chronic Code(s): E66.9 - Obesity, unspecified (13) Personal history of thrombophlebitis Status: Chronic Code(s): Z86.72 - Personal history of thrombophlebitis History of Present Illness Date of Service: 08/12/20 Chief Complaint: Open wound of the left lateral calf, status-post incision and drainage of abscess History of Wound: This is a 60-year-old male who was admitted to [facility] approximately 1 month prior to presentation with a large abscess on the left lateral calf. On February 11, 2020, he underwent incision and drainage of the abscess. He spent approximately 5 days in the hospital, and was subsequently discharged on Augmentin. The patient claims to sleep on a flat mattress at night. However, he suffers from chronic swelling and edema in both lower extremities. Additionally, he has a history of superficial thrombophlebitis in the left lower extremity, and has undergone a prior left lower extremity vein stripping procedure in the remote past. Patient has developed chronic skin changes in his lower extremities, which include hyperpigmentation and lipodermatosclerosis in the gaiter areas bilaterally. Patient is also noted to have diallo phlebectatica at ankle level bilaterally. The patient claims to be relatively active. Management the time of presentation included the use of a wet-to-dry gauze packing daily. It is noted that patient underwent a venous duplex examination during his hospitalization recently, that was negative for any evidence of thrombosis, but indicated valvular incompetence of the deep and superficial venous systems bilaterally. 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 Home Medications: Ambulatory Orders Medication Instructions Recorded Augmentin 875-125 Tablet 875 mg PO BID 03/18/20 Rosuvastatin Calcium [Crestor] 20 mg PO DAILY 03/18/20 - Family History Paternal - - Patient's father at the age of 72 with a history of cerebrovascular accident and venous disease. Patient's mother at the age of 90, of old age. Smoking Status: Light Smoker (<10/day) Tobacco Use: Cigarettes Review of Systems Constitutional: Denies: Chills, Fever, Weight Change Eyes: Denies: Pain, Vision Change HEENT: Denies: Difficulty Hearing, Difficulty Swallowing, Sinus Congestion Cardiovascular: Denies: Chest Pain, Palpitations Respiratory: Denies: Cough, Shortness of Breath Gastrointestinal: Denies: Diarrhea, Nausea, Vomiting Genitourinary: Denies: Dysuria, Hematuria Endocrine: Denies: Heat/ Cold Intolerance, Polydipsia, Polyuria Hematologic/ Lymphatic: Denies: Easy Bruising, Easy Bleeding - Physical Exam Vital Signs Temp Pulse Resp BP 97.1 F L 89 18 157/77 H 08/12/20 07:52 08/12/20 07:52 08/12/20 07:52 08/12/20 07:52 General: Alert, Oriented x3, Cooperative, No apparent distress, Well developed, Well nourished HEENT: Atraumatic, PERRLA, EOMI, Normocephalic Oral: Moist Mucosa Neck: No JVD Lungs: Normal air movement Abdomen: Non-Distended Extremities: No clubbing, No cyanosis, No Calf Tenderness, - - Minimal swelling and edema are noted in the patient's left lower extremity. Chronic venous changes persist in the left lower extremity, namely hyperpigmentation and lipodermatosclerosis in the gaiter area. Addt'l Wound Findings: The wound on the left lateral calf persists. It appears to be smaller in size. Dimensions are documented elsewhere. There is no sign of infection or cellulitis. There is a small amount of bioburden. Peripheral epithelialization appears to be progressing. Skin: No rashes Wound Measurements and Assessment WC - Nurse 1 - General Ulcer Measurement Start: 08/05/20 08:08 Freq: Status: Active Protocol: Activity Type Activity Date Activity User E-Sign Co-Sign Detail Recorded Client Recorded Date Recorded By Document 08/12/20 07:52 PL [id number] 08/12/20 07:59 PL 08/12/20 07:52 Wound Center Nurse 1 [Ulcer Assessment] #1 Lateral LLE -Combined with other wound No -Current Size (cm) - Length 1.5 -Current Size (cm) - Width 2.0 -Current Size (cm) - Depth 0.1 -Total Square Cm 3.00 -Photo Taken No -Epithelialization None Present -Tunneling No -Undermining/Tunneling No -Circular Undermining No -Exudate Amt Medium -Exudate Type Serosanguineous -Granulation Amt Medium (34-66%) -Granulation Quality [place] -Slough/Fibrin Yes -Necrosis Amt Medium (34-66%) -Necrotic Tissue Type Adherent Slough -Texture (Lois-wound Skin Appearance) No Abnormality -Moisture (Lois-wound Skin Appearance No Abnormality ) -Color (Lois-wound Skin Appearance) No Abnormality -Temperature (Lois-wound Skin No Abnormality Appearance) (Pt Warm) -Tenderness on Palpation (Lois-wound No Skin Appearance) -Ulcer Cleansing Rinsed/ Irrigated with Saline -Foul Odor after Cleansing No -Anesthetic Used 5% Lidocaine Gel Musculoskeletal: No Muscle Wasting Neurological: Cranial nerves II-XII grossly intact, Neuro grossly intact Psych/Mental Status: Normal Affect, Appropriate, Alert and oriented to time, place, person, mood and affect Debridement Note Post-Debridement Measurements/Treatment WC - Nurse 2 - General Ulcer CM Notes Start: 08/05/20 08:08 Freq: Status: Active Protocol: Activity Type Activity Date Activity User E-Sign Co-Sign Detail Recorded Client Recorded Date Recorded By Document 08/05/20 14:40 PL [email or web address] 08/05/20 14:41 PL 08/05/20 14:40 Wound Center Nurse 2 #1 Lateral LLE -Time 08:12 -Correct Patient Yes -Correct Side, Site, Position Yes -Correct Procedure Yes -Procedure Performed Yes -Type of Procedure Debridement -Clinical Debridement Subcutaneous -Tissue Removed Subcutaneous -Post Debridement (cm) - Length 1.3 -Post Debridement (cm) - Width 1.8 -Post Debridement (cm) - Depth 0.1 -Total Square (Post) (cm) 2.34 -Area of Debridement (cm) - Length 1.3 -Area of Debridement (cm) - Width 1.8 -Total Square (Area) (cm) 2.34 -Tunneling No -Undermining/Tunneling No -Circular Undermining No -Wound/Ulcer Outcome Not Healed -Ulcer Cleansing Rinsed/ Irrigated with Saline -Foul Odor after Cleansing No -Bioengineered Tissue No -Treatment Response Procedure Tolerated Well -Debridement - Subq, 1st 20sq cm Yes Pain Scale: 0-10 Numeric Is Patient Pain Free? Yes WC - Nurse 3 - General Ulcer D/C NN Start: 08/05/20 08:08 Freq: Status: Active Protocol: Activity Type Activity Date Activity User E-Sign Co-Sign Detail Recorded Client Recorded Date Recorded By Document 08/05/20 08:27 DL [id number] 08/05/20 08:28 DL 08/05/20 08:27 Wound Care Nurse 3 #1 Lateral LLE -Ulcer Cleansing Rinsed/ Irrigated with Saline -Foul Odor after Cleansing No -Primary Dressing Applied Promogran -Primary Dressing Covered/Secured with Secured with Tape -Promogran 1 Treatment Response Procedure Tolerated Well Pain Scale: 0-10 Numeric Is Patient Pain Free? Yes WC - Visit Discharge Discharge Condition Stable Ambulatory Status Ambulatory Transportation Private Auto Laterality: Left - Lateral calf Type of Debridement: Excisional debridement Anesthesia Used: 5% Lidocaine Gel Depth: Down to and including healthy tissue, in the subcutaneous layer Percentage of wound debrided: 100 Instrument Used: 5mm curette Tissue Removed: Bioburden Severity: Fat Layer Exposed Amount of bleeding with debridement: Mild Bleeding Controlled with: Compression and gauze Patient tolerated procedure well Assessment/Plan Active Problems Leg swelling (Chronic) Leg edema (Chronic) Abscess of left leg (Chronic) Surgical wound present (Chronic) Chronic venous insufficiency (Chronic) 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 He was hospitalized for approximately 5 days, and underwent incision and drainage of the abscess. He presented here for definitive management. At the time of his initial presentation, the patient was noted to have a large amount of frankly necrotic and nonviable tissue present at the site of his former abscess, with some tunneling as well. The patient also suffers from longstanding swelling and edema of his lower extremities, and is known to have a history of superficial thrombophlebitis in the left lower extremity previously. Physical findings suggest longstanding chronic venous insufficiency. The patient has undergone a battery of diagnostic testing. An x-ray of the left tibia/fibula shows soft tissue changes, but no other abnorm alities. Laboratory results from 03/20/2020 are as follows: White blood count 6.0, hemoglobin 14.4, hematocrit 44.7, platelets 247,000, sodium 137, potassium 4.1, chloride 104, BUN 20, creatinine 0.76, glucose 127, calcium 9.1, total bilirubin 0.60, AST 14, ALT 31, alkaline phosphatase 57, total protein 7.6, albumin 4.1, prealbumin 29.2. Recently, a noninvasive lower extremity arterial study revealed no evidence of significant arterial occlusive disease in the lower extremities. A venous duplex examination revealed incompetence of the great saphenous veins bilaterally. At this juncture, the patient appears to be progressing well, with a progressive decrease in the size and depth of his wound. Undermining posteriorly is resolved. Plan: The patient has been advised to continue conservative treatment measures. These are to include leg elevation. He is to continue sleeping on a flat mattress at night. His legs are to be elevated to heart level, or higher, even during daytime hours. This is to be implemented as much as possible. The patient has been advised to refrain from prolonged, idle standing and sitting. Activity has been encouraged. Implementation of the calf and foot muscle pumps has been explained. Weight loss is also been recommended. We are to continue compression by means of SurePress wraps to both lower extremities. The patient has previously been provided with a prescription for knee-high graduated compression stockings of 20 to 30 mmHg compression, but has not yet filled the prescription to obtain the compression stockings. He has been urged to do so within the next week. The nonviable and necrotic tissue has been removed from the patient's wound by means of excisional and enzymatic debridements. We initiated the use of a Snap VAC, but have been using Promogran topically on a daily basis recently. The patient has continued to do well. We are to continue with the use of Promogran for now. The patient is to return in 1 week for reassessment. Once again, we have reinforced the need for compression, elevation, avoidance of prolonged idle sitting, etc. We will continue to monitor the patient's wound serially, and to assess the patient's progress. Patient smokes rarely, but has been advised to refrain from his smoking habit. Influenza vaccine was not administered today. Patient stands 5 feet 10 inches tall. He weighs 246 pounds. His BMI is 35.3, which places him in a class II obesity category. Weight loss has been recommended, in collaboration with the patient's primary care physician has been advised.
[2020-08-19 07:51] VITALS: BP 145/79; PULSE 103; TEMP 35.9; BMI 35.3
--- NOTE | 2020-08-19 08:24 | PCM.WC.HP ---
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 Code(s): I87.093 - Postthrombotic syndrome with other complications of bilateral lower extremity (7) Hyperpigmentation of skin Status: Chronic Code(s): L81.9 - Disorder of pigmentation, unspecified (8) Lipodermatosclerosis of both lower extremities Status: Chronic Code(s): I83.11 - Varicose veins of right lower extremity with inflammation; I83.12 - Varicose veins of left lower extremity with inflammation (9) Diallo phlebectatica Status: Chronic (10) Wound of left leg Status: Chronic Qualifiers: Encounter type: subsequent encounter Code(s): S81.802A - Unspecified open wound, left lower leg, initial encounter (11) Necrosis Status: Chronic Code(s): I96 - Gangrene, not elsewhere classified (12) Obesity (BMI 35.0-39.9 without comorbidity) Status: Chronic Code(s): E66.9 - Obesity, unspecified (13) Personal history of thrombophlebitis Status: Chronic Code(s): Z86.72 - Personal history of thrombophlebitis History of Present Illness Date of Service: 08/19/20 Chief Complaint: Open wound of the left lateral calf, status-post incision and drainage of abscess History of Wound: This is a 60-year-old male who was admitted to [facility] approximately 1 month prior to presentation with a large abscess on the left lateral calf. On February 11, 2020, he underwent incision and drainage of the abscess. He spent approximately 5 days in the hospital, and was subsequently discharged on Augmentin. The patient claims to sleep on a flat mattress at night. However, he suffers from chronic swelling and edema in both lower extremities. Additionally, he has a history of superficial thrombophlebitis in the left lower extremity, and has undergone a prior left lower extremity vein stripping procedure in the remote past. Patient has developed chronic skin changes in his lower extremities, which include hyperpigmentation and lipodermatosclerosis in the gaiter areas bilaterally. Patient is also noted to have diallo phlebectatica at ankle level bilaterally. The patient claims to be relatively active. Management the time of presentation included the use of a wet-to-dry gauze packing daily. It is noted that patient underwent a venous duplex examination during his hospitalization recently, that was negative for any evidence of thrombosis, but indicated valvular incompetence of the deep and superficial venous systems bilaterally. 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 Home Medications: Ambulatory Orders Medication Instructions Recorded Augmentin 875-125 Tablet 875 mg PO BID 03/18/20 Rosuvastatin Calcium [Crestor] 20 mg PO DAILY 03/18/20 - Family History Paternal - - Patient's father at the age of 72 with a history of cerebrovascular accident and venous disease. Patient's mother at the age of 90, of old age. Smoking Status: Light Smoker (<10/day) Tobacco Use: Cigarettes Review of Systems Constitutional: Denies: Chills, Fever, Weight Change Eyes: Denies: Pain, Vision Change HEENT: Denies: Difficulty Hearing, Difficulty Swallowing, Sinus Congestion Cardiovascular: Denies: Chest Pain, Palpitations Respiratory: Denies: Cough, Shortness of Breath Gastrointestinal: Denies: Diarrhea, Nausea, Vomiting Genitourinary: Denies: Dysuria, Hematuria Endocrine: Denies: Heat/ Cold Intolerance, Polydipsia, Polyuria Hematologic/ Lymphatic: Denies: Easy Bruising, Easy Bleeding - Physical Exam Vital Signs Temp Pulse Resp BP 96.7 F L 103 H 18 145/79 H 08/19/20 07:51 08/19/20 07:51 08/12/20 07:52 08/19/20 07:51 General: Alert, Oriented x3, Cooperative, No apparent distress, Well developed, Well nourished HEENT: Atraumatic, PERRLA, EOMI, Normocephalic Oral: Moist Mucosa Neck: No JVD Lungs: Normal air movement Abdomen: Non-Distended Extremities: No clubbing, No cyanosis, No Calf Tenderness, - - Minimal swelling and edema is noted in the left lower extremity. Chronic hyperpigmentation is noted. Scattered large varicosities are also noted. These are all chronic changes. Addt'l Wound Findings: Ulceration on the left lateral calf persists. It is smaller in size. Dimensions are documented elsewhere. There is no sign of infection or cellulitis. There is a small amount of bioburden. Skin: No rashes Wound Measurements and Assessment WC - Nurse 1 - General Ulcer Measurement Start: 08/05/20 08:08 Freq: Status: Active Protocol: Activity Type Activity Date Activity User E-Sign Co-Sign Detail Recorded Client Recorded Date Recorded By Document 08/19/20 07:51 MAYTE [id number] 08/19/20 08:00 MAYTE 08/19/20 07:51 Wound Center Nurse 1 [Ulcer Assessment] #1 Lateral LLE -Combined with other wound No -Current Size (cm) - Length 1.4 -Current Size (cm) - Width 1.5 -Current Size (cm) - Depth 0.1 -Total Square Cm 2.10 -Photo Taken No -Tunneling No -Undermining/Tunneling No -Circular Undermining No -Exudate Amt Small -Exudate Type Serosanguineous -Wound Margin Distinct, Outline Attached -Granulation Amt Small (1-33%) -Granulation Quality Red -Necrosis Amt Small (1-33%) -Necrotic Tissue Type Adherent Slough -Texture (Lois-wound Skin Appearance) Assessed,Rash -Moisture (Lois-wound Skin Appearance No Abnormality ) -Color (Lois-wound Skin Appearance) No Abnormality -Temperature (Lois-wound Skin No Abnormality Appearance) (Pt Warm) -Tenderness on Palpation (Lois-wound No Skin Appearance) -Ulcer Cleansing Rinsed/ Irrigated with Saline -Foul Odor after Cleansing No -Anesthetic Used 5% Lidocaine Gel [Edema Assessment] -Left Calf (cm) 42.5 -Point of Measurement (cm from the 26.5 medial instep) Musculoskeletal: No Muscle Wasting Neurological: Cranial nerves II-XII grossly intact, Neuro grossly intact Psych/Mental Status: Normal Affect, Appropriate, Alert and oriented to time, place, person, mood and affect Debridement Note Post-Debridement Measurements/Treatment WC - Nurse 2 - General Ulcer CM Notes Start: 08/05/20 08:08 Freq: Status: Active Protocol: Activity Type Activity Date Activity User E-Sign Co-Sign Detail Recorded Client Recorded Date Recorded By Document 08/05/20 14:40 PL [id number] 08/05/20 14:41 PL Document 08/12/20 09:36 PL [id number] 08/12/20 09:38 PL 08/05/20 08/12/20 14:40 09:36 Wound Center Nurse 2 #1 Lateral LLE -Time 08:12 08:14 -Correct Patient Yes Yes -Correct Side, Site, Position Yes Yes -Correct Procedure Yes Yes -Procedure Performed Yes Yes -Type of Procedure Debridement Debridement -Clinical Debridement Subcutaneous Subcutaneous -Tissue Removed Subcutaneous Subcutaneous -Post Debridement (cm) - Length 1.3 1.5 -Post Debridement (cm) - Width 1.8 2.0 -Post Debridement (cm) - Depth 0.1 0.1 -Total Square (Post) (cm) 2.34 3.00 -Area of Debridement (cm) - Length 1.3 1.5 -Area of Debridement (cm) - Width 1.8 2.0 -Total Square (Area) (cm) 2.34 3.00 -Tunneling No No -Undermining/Tunneling No No -Circular Undermining No No -Wound/Ulcer Outcome Not Healed Not Healed -Ulcer Cleansing Rinsed/ Rinsed/ Irrigated with Irrigated with Saline Saline -Foul Odor after Cleansing No No -Bioengineered Tissue No No -Treatment Response Procedure Tolerated Well -Debridement - Subq, 1st 20sq cm Yes Yes Pain Scale: 0-10 Numeric Is Patient Pain Free? Yes Yes KISHA - Nurse 3 - General Ulcer D/C NN Start: 08/05/20 08:08 Freq: Status: Active Protocol: Activity Type Activity Date Activity User E-Sign Co-Sign Detail Recorded Client Recorded Date Recorded By Document 08/05/20 08:27 DL [id number] 08/05/20 08:28 DL Document 08/12/20 09:36 PL [id number] 08/12/20 09:38 PL 08/05/20 08/12/20 08:27 09:36 Wound Care Nurse 3 #1 Lateral LLE -Ulcer Cleansing Rinsed/ Rinsed/ Irrigated with Irrigated with Saline Saline -Foul Odor after Cleansing No No -Primary Dressing Applied Promogran Promogran -Primary Dressing Covered/Secured with Secured with Dry Gauze, Tape Secured with Tape -Promogran 1 1 Left -Compression Wrap Surepress ($) Treatment Response Procedure Tolerated Well Pain Scale: 0-10 Numeric Is Patient Pain Free? Yes Yes WC - Visit Discharge Discharge Condition Stable Stable Ambulatory Status Ambulatory Ambulatory Transportation Private Auto Private Auto Clinical Summary of Care Provided Yes Laterality: Left - Lateral calf Type of Debridement: Excisional debridement Anesthesia Used: 5% Lidocaine Gel Depth: Down to and including healthy tissue, in the subcutaneous layer Percentage of wound debrided: 100 Instrument Used: 5mm curette Tissue Removed: Bioburden Severity: Fat Layer Exposed Amount of bleeding with debridement: Mild Bleeding Controlled with: Compression and gauze Patient tolerated procedure well Assessment/Plan Active Problems Leg swelling (Chronic) Leg edema (Chronic) Abscess of left leg (Chronic) Surgical wound present (Chronic) Chronic venous insufficiency (Chronic) 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 He was hospitalized for approximately 5 days, and underwent incision and drainage of the abscess. He presented here for definitive management. At the time of his initial presentation, the patient was noted to have a large amount of frankly necrotic and nonviable tissue present at the site of his former abscess, with some tunneling as well. The patient also suffers from longstanding swelling and edema of his lower extremities, and is known to have a history of superficial thrombophlebitis in the left lower extremity previously. Physical findings suggest longstanding chronic venous insufficiency. The patient has undergone a battery of diagnostic testing. An x-ray of the left tibia/fibula shows soft tissue changes, but no other abnormalities. Laboratory results from 03/20/2020 are as follows: White blood count 6.0, hemoglobin 14.4, hematocrit 44.7, platelets 247,000, sodium 137, potassium 4.1, chloride 104, BUN 20, creatinine 0.76, glucose 127, calcium 9.1, total bilirubin 0.60, AST 14, ALT 31, alkaline phosphatase 57, total protein 7.6, albumin 4.1, prealbumin 29.2. Recently, a noninvasive lower extremity arterial study revealed no evidence of significant arterial occlusive disease in the lower extremities. A venous duplex examination revealed incompetence of the great saphenous veins bilaterally. At this juncture, the patient appears to be progressing well, with a progressive decrease in the size and depth of his wound. Undermining posteriorly is resolved. Plan: The patient has been advised to continue conservative treatment measures. These are to include leg elevation. He is to continue sleeping on a flat mattress at night. His legs are to be elevated to heart level, or higher, even during daytime hours. This is to be implemented as much as possible. The patient has been advised to refrain from prolonged, idle standing and sitting. Activity has been encouraged. Implementation of the calf and foot muscle pumps has been explained. Weight loss is also been recommended. We are to continue compression by means of SurePress wraps to both lower extremities. The patient has previously been provided with a prescription for knee-high graduated compression stockings of 20 to 30 mmHg compression, but has not yet filled the prescription to obtain the compression stockings. He has been urged to do so within the next week. The nonviable and necrotic tissue has been removed from the patient's wound by means of excisional and enzymatic debridements. We initiated the use of a Snap VAC, but have been using Promogran topically on a daily basis recently. The patient has continued to do well. We are to continue with the use of Promogran for now. The patient is to return in 1 week for reassessment. Once again, we have reinforced the need for compression, elevation, avoidance of prolonged idle sitting, etc. We will continue to monitor the patient's wound serially, and to assess the patient's progress. Patient smokes rarely, but has been advised to refrain from his smoking habit. Influenza vaccine was not administered today. Patient stands 5 feet 10 inches tall. He weighs 246 pounds. His BMI is 35.3, which places him in a class II obesity category. Weight loss has been recommended, in collaboration with the patient's primary care physician has been advised.
[2020-08-26 07:56] VITALS: BP 112/74; PULSE 92; RESP 16; TEMP 36.3; BMI 35.3
--- NOTE | 2020-08-26 08:10 | HP.PCM_ITS ---
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 Code(s): I87.093 - Postthrombotic syndrome with other complications of bilateral lower extremity (7) Hyperpigmentation of skin Status: Chronic Code(s): L81.9 - Disorder of pigmentation, unspecified (8) Lipodermatosclerosis of both lower extremities Status: Chronic Code(s): I83.11 - Varicose veins of right lower extremity with inflammation; I83.12 - Varicose veins of left lower extremity with inflammation (9) Diallo phlebectatica Status: Chronic (10) Wound of left leg Status: Chronic Qualifiers: Encounter type: subsequent encounter Code(s): S81.802A - Unspecified open wound, left lower leg, initial encounter (11) Necrosis Status: Chronic Code(s): I96 - Gangrene, not elsewhere classified (12) Obesity (BMI 35.0-39.9 without comorbidity) Status: Chronic Code(s): E66.9 - Obesity, unspecified (13) Personal history of thrombophlebitis Status: Chronic Code(s): Z86.72 - Personal history of thrombophlebitis History of Present Illness Date of Service: 08/26/20 Chief Complaint: Open wound of the left lateral calf, status-post incision and drainage of abscess History of Wound: This is a 60-year-old male who was admitted to [facility] approximately 1 month prior to presentation with a large abscess on the left lateral calf. On February 11, 2020, he underwent incision and drainage of the abscess. He spent approximately 5 days in the hospital, and was subsequently discharged on Augmentin. The patient claims to sleep on a flat mattress at night. However, he suffers from chronic swelling and edema in both lower extremities. Additionally, he has a history of superficial thrombophlebitis in the left lower extremity, and has undergone a prior left lower extremity vein stripping procedure in the remote past. Patient has developed chronic skin changes in his lower extremities, which include hyperpigmentation and lipodermatosclerosis in the gaiter areas bilaterally. Patient is also noted to have diallo phlebectatica at ankle level bilaterally. The patient claims to be relatively active. Management the time of presentation included the use of a wet-to-dry gauze packing daily. It is noted that patient underwent a venous duplex examination during his hospitalization recently, that was negative for any evidence of thrombosis, but indicated valvular incompetence of the deep and superficial venous systems bilaterally. 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 Home Medications: Ambulatory Orders Medication Instructions Recorded Augmentin 875-125 Tablet 875 mg PO BID 03/18/20 Rosuvastatin Calcium [Crestor] 20 mg PO DAILY 03/18/20 - Family History Paternal - - Patient's father at the age of 72 with a history of cerebrovascular accident and venous disease. Patient's mother at the age of 90, of old age. Smoking Status: Light Smoker (<10/day) Tobacco Use: Cigarettes Review of Systems Constitutional: Denies: Chills, Fever, Weight Change Eyes: Denies: Pain, Vision Change HEENT: Denies: Difficulty Hearing, Difficulty Swallowing, Sinus Congestion Cardiovascular: Denies: Chest Pain, Palpitations Respiratory: Denies: Cough, Shortness of Breath Gastrointestinal: Denies: Diarrhea, Nausea, Vomiting Genitourinary: Denies: Dysuria, Hematuria Endocrine: Denies: Heat/ Cold Intolerance, Polydipsia, Polyuria Hematologic/ Lymphatic: Denies: Easy Bruising, Easy Bleeding - Physical Exam Vital Signs Temp Pulse Resp BP 97.4 F L 92 16 112/74 08/26/20 07:56 08/26/20 07:56 08/26/20 07:56 08/26/20 07:56 General: Alert, Oriented x3, Cooperative, No apparent distress, Well developed, Well nourished HEENT: Atraumatic, PERRLA, EOMI, Normocephalic Oral: Moist Mucosa Neck: No JVD Lungs: Normal air movement Abdomen: Non-Distended Extremities: No clubbing, No cyanosis, No Calf Tenderness, - - Mild swelling and edema are noted in the patient's left lower extremity. Chronic venous changes are also noted, namely hyperpigmentation. Multiple large varicose veins are noted diffusely. Addt'l Wound Findings: The ulceration on the left lateral calf persists. It is smaller in size. There is evidence of peripheral epithelialization. Dimensions are documented elsewhere. There is no sign of infection or cellulitis. There is a small amount of bioburden. The base of the ulceration is generally pink and healthy in appearance. Skin: No rashes Wound Measurements and Assessment WC - Nurse 1 - General Ulcer Measurement Start: 08/05/20 08:08 Freq: Status: Active Protocol: Activity Type Activity Date Activity User E-Sign Co-Sign Detail Recorded Client Recorded Date Recorded By Document 08/26/20 07:56 [id number] 08/26/20 07:58 MELISSA 08/26/20 07:56 Wound Center Nurse 1 [Ulcer Assessment] #1 Lateral LLE -Combined with other wound No -Current Size (cm) - Length 0.9 -Current Size (cm) - Width 1.1 -Current Size (cm) - Depth 0.2 -Total Square Cm 0.99 -Photo Taken No -Epithelialization Small 1-33% -Tunneling No -Undermining/Tunneling No -Circular Undermining No -Exudate Amt Small -Exudate Type Serosanguineous -Wound Margin Flat & Intact -Granulation Amt Medium (34-66%) -Granulation Quality Red -Slough/Fibrin Yes -Necrosis Amt Medium (34-66%) -Necrotic Tissue Type Adherent Slough -Structure Exposed N/A -Texture (Lois-wound Skin Appearance) Assessed, Localized Edema -Moisture (Lois-wound Skin Appearance Assessed,Dry/ ) Scaly -Color (Lois-wound Skin Appearance) Assessed, Hemosiderin Staining -Temperature (Lois-wound Skin No Abnormality Appearance) (Pt Warm) -Tenderness on Palpation (Lois-wound No Skin Appearance) -Ulcer Cleansing Rinsed/ Irrigated with Saline -Foul Odor after Cleansing No -Anesthetic Used 4% Lidocaine Solution [Edema Assessment] -Lower Limb Edema Present Yes -Left Calf (cm) 41.5 -Left Ankle (cm) 25.5 Musculoskeletal: No Muscle Wasting Neurological: Cranial nerves II-XII grossly intact, Neuro grossly intact Psych/Mental Status: Normal Affect, Appropriate, Alert and oriented to time, place, person, mood and affect Debridement Note Post-Debridement Measurements/Treatment WC - Nurse 2 - General Ulcer CM Notes Start: 08/05/20 08:08 Freq: Status: Active Protocol: Activity Type Activity Date Activity User E-Sign Co-Sign Detail Recorded Client Recorded Date Recorded By Document 08/05/20 14:40 PL [id number] 08/05/20 14:41 PL Document 08/12/20 09:36 PL [id number] 08/12/20 09:38 PL Document 08/19/20 12:11 PL [id number] 08/19/20 12:12 PL 08/05/20 08/12/20 08/19/20 14:40 09:36 12:11 Wound Center Nurse 2 #1 Lateral LLE -Time 08:12 08:14 08:18 -Correct Patient Yes Yes Yes -Correct Side, Site, Position Yes Yes Yes -Correct Procedure Yes Yes Yes -Procedure Performed Yes Yes Yes -Type of Procedure Debridement Debridement Debridement -Clinical Debridement Subcutaneous Subcutaneous Subcutaneous -Tissue Removed Subcutaneous Subcutaneous Subcutaneous -Post Debridement (cm) - Length 1.3 1.5 1.4 -Post Debridement (cm) - Width 1.8 2.0 1.5 -Post Debridement (cm) - Depth 0.1 0.1 0.1 -Total Square (Post) (cm) 2.34 3.00 2.10 -Area of Debridement (cm) - Length 1.3 1.5 1.4 -Area of Debridement (cm) - Width 1.8 2.0 1.5 -Total Square (Area) (cm) 2.34 3.00 2.10 -Tunneling No No No -Undermining/Tunneling No No No -Circular Undermining No No No -Wound/Ulcer Outcome Not Healed Not Healed Not Healed -Ulcer Cleansing Rinsed/ Rinsed/ Rinsed/ Irrigated with Irrigated with Irrigated with Saline Saline Saline -Foul Odor after Cleansing No No No -Bioengineered Tissue No No No -Bleeding Controlled with Pressure -Treatment Response Procedure Procedure Tolerated Well Tolerated Well -Debridement - Subq, 1st 20sq cm Yes Yes Yes Pain Scale: 0-10 Numeric Is Patient Pain Free? Yes Yes Yes - Nurse 3 - General Ulcer D/C NN Start: 08/05/20 08:08 Freq: Status: Active Protocol: Activity Type Activity Date Activity User E-Sign Co-Sign Detail Recorded Client Recorded Date Recorded By Document 08/05/20 08:27 DL [id number] 08/05/20 08:28 DL Document 08/12/20 09:36 PL [id number] 08/12/20 09:38 PL Document 08/19/20 08:29 DL [id number] 08/19/20 08:29 DL 08/05/20 08/12/20 08/19/20 08:27 09:36 08:29 Wound Care Nurse 3 #1 Lateral LLE -Ulcer Cleansing Rinsed/ Rinsed/ Rinsed/ Irrigated with Irrigated with Irrigated with Saline Saline Saline -Foul Odor after Cleansing No No No -Primary Dressing Applied Promogran Promogran -Other Dressing promoran -Primary Dressing Covered/Secured with Secured with Dry Gauze, Dry Gauze, Tape Secured with Secured with Tape Tape -Other Covering surepress -Promogran 1 1 Left -Compression Wrap Surepress ($) Treatment Response Procedure Tolerated Well Pain Scale: 0-10 Numeric Is Patient Pain Free? Yes Yes - Visit Discharge Discharge Condition Stable Stable Stable Ambulatory Status Ambulatory Ambulatory Ambulatory Transportation Private Auto Private Auto Private Auto Clinical Summary of Care Provided Yes Laterality: Left - Lateral calf Type of Debridement: Excisional debridement Anesthesia Used: 5% Lidocaine Gel Depth: Down to and including healthy tissue, in the subcutaneous layer Percentage of wound debrided: 100 Instrument Used: 5mm curette Tissue Removed: Bioburden Severity: Fat Layer Exposed Amount of bleeding with debridement: Mild Bleeding Controlled with: Compression and gauze Patient tolerated procedure well Assessment/Plan Active Problems Leg swelling (Chronic) Leg edema (Chronic) Abscess of left leg (Chronic) Surgical wound present (Chronic) Chronic venous insufficiency (Chronic) 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 He was hospitalized for approximately 5 days, and underwent incision and drainage of the abscess. He presented here for definitive management. At the time of his initial presentation, the patient was noted to have a large amount of frankly necrotic and nonviable tissue present at the site of his former abscess, with some tunneling as well. The patient also suffers from longstanding swelling and edema of his lower extremities, and is known to have a history of superficial thrombophlebitis in the left lower extremity previously. Physical findings suggest longstanding chronic venous insufficiency. The patient has undergone a battery of diagnostic testing. An x-ray of the left tibia/fibula shows soft tissue changes, but no other abnormalities. Laboratory results from 03/20/2020 are as follows: White blood count 6.0, hemoglobin 14.4, hematocrit 44.7, platelets 247,000, sodium 137, potassium 4.1, chloride 104, BUN 20, creatinine 0.76, glucose 127, calcium 9.1, total bilirubin 0.60, AST 14, ALT 31, alkaline phosphatase 57, total protein 7.6, albumin 4.1, prealbumin 29.2. Recently, a noninvasive lower extremity arterial study revealed no evidence of significant arterial occlusive disease in the lower extremities. A venous duplex examination revealed incompetence of the great saphenous veins bilaterally. At this juncture, the patient appears to be progressing well, with a progressive decrease in the size and depth of his wound. Undermining posteriorly is resolved. Plan: The patient has been advised to continue conservative treatment measures. These are to include leg elevation. He is to continue sleeping on a flat mattress at night. His legs are to be elevated to heart level, or higher, even during daytime hours. This is to be implemented as much as possible. The patient has been advised to refrain from prolonged, idle standing and sitting. Activity has been encouraged. Implementation of the calf and foot muscle pumps has been explained. Weight loss is also been recommended. We are to continue compression by means of SurePress wraps to both lower extremities. The patient has previously been provided with a prescription for knee-high graduated compression stockings of 20 to 30 mmHg compression, but has not yet filled the prescription to obtain the compression stockings. For 2 weeks, the patient has failed to obtain the prescribed graduated compression stockings. He has been urged to do so within the next week. The nonviable and necrotic tissue has been removed from the patient's wound by means of excisional and enzymatic debridements. We initiated the use of a Snap VAC, but have been using Promogran topically on a daily basis recently. The patient has continued to do well. We are to continue with the use of Promogran for now. The patient is to return in 1 week for reassessment. Once again, we have reinforced the need for compression, elevation, avoidance of prolonged idle sitting, etc. We will continue to monitor the patient's wound serially, and to assess the patient's progress. Patient smokes rarely, but has been advised to refrain from his smoking habit. Influenza vaccine was not administered today. Patient stands 5 feet 10 inches tall. He weighs 246 pounds. His BMI is 35.3, which places him in a class II obesity category. Weight loss has been recommended, in collaboration with the patient's primary care physician has been advised.
== END 2020-09-01 23:59 ==
LOC: WC 07:45
PROVIDERS: PCP Family Medicine; Referring Provider Surgery; Visit Provider Surgery
DX: L02.416 Cutaneous abscess of left lower limb (principal); I87.093 Postthrombotic syndrome with other complications of bilateral lower extremity; L81.9 Disorder of pigmentation, unspecified; I83.11 Varicose veins of right lower extremity with inflammation; I83.12 Varicose veins of left lower extremity with inflammation; E66.9 Obesity, unspecified; I96 Gangrene, not elsewhere classified; Z86.72 Personal history of thrombophlebitis; F17.210 Nicotine dependence, cigarettes, uncomplicated; Z68.35 Body mass index [BMI] 35.0-35.9, adult; M79.89 Other specified soft tissue disorders; R60.0 Localized edema
CPT/HCPCS: 11042

== ENCOUNTER 2020-09-23 07:45 | Outpatient (RCR) | payer OTHER, SELFPAY ==
[2020-09-02 00:21] VITALS: BP 112/74; PULSE 92; RESP 16; TEMP 36.3
[2020-09-02 07:54] VITALS: BP 140/74; PULSE 98; RESP 16; TEMP 35.6; BMI 35.3
--- NOTE | 2020-09-02 08:06 | PCM.WC.HP ---
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 Code(s): I87.093 - Postthrombotic syndrome with other complications of bilateral lower extremity (7) Hyperpigmentation of skin Status: Chronic Code(s): L81.9 - Disorder of pigmentation, unspecified (8) Lipodermatosclerosis of both lower extremities Status: Chronic Code(s): I83.11 - Varicose veins of right lower extremity with inflammation; I83.12 - Varicose veins of left lower extremity with inflammation (9) Diallo phlebectatica Status: Chronic (10) Wound of left leg Status: Chronic Qualifiers: Code(s): S81.802A - Unspecified open wound, left lower leg, initial encounter (11) Necrosis Status: Chronic Code(s): I96 - Gangrene, not elsewhere classified (12) Obesity (BMI 35.0-39.9 without comorbidity) Status: Chronic Code(s): E66.9 - Obesity, unspecified (13) Personal history of thrombophlebitis Status: Chronic Code(s): Z86.72 - Personal history of thrombophlebitis History of Present Illness Date of Service: 09/02/20 Chief Complaint: Open wound of the left lateral calf, status-post incision and drainage of abscess History of Wound: This is a 60-year-old male who was admitted to [facility] approximately 1 month prior to presentation with a large abscess on the left lateral calf. On February 11, 2020, he underwent incision and drainage of the abscess. He spent approximately 5 days in the hospital, and was subsequently discharged on Augmentin. The patient claims to sleep on a flat mattress at night. However, he suffers from chronic swelling and edema in both lower extremities. Additionally, he has a history of superficial thrombophlebitis in the left lower extremity, and has undergone a prior left lower extremity vein stripping procedure in the remote past. Patient has developed chronic skin changes in his lower extremities, which include hyperpigmentation and lipodermatosclerosis in the gaiter areas bilaterally. Patient is also noted to have diallo phlebectatica at ankle level bilaterally. The patient claims to be relatively active. Management the time of presentation included the use of a wet-to-dry gauze packing daily. It is noted that patient underwent a venous duplex examination during his hospitalization recently, that was negative for any evidence of thrombosis, but indicated valvular incompetence of the deep and superficial venous systems bilaterally. 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 Home Medications: Ambulatory Orders Medication Instructions Recorded Augmentin 875-125 Tablet 875 mg PO BID 03/18/20 Rosuvastatin Calcium [Crestor] 20 mg PO DAILY 03/18/20 - Family History Paternal - - Patient's father at the age of 72 with a history of cerebrovascular accident and venous disease. Patient's mother at the age of 90, of old age. Smoking Status: Light Smoker (<10/day) Tobacco Use: Cigarettes Review of Systems Constitutional: Denies: Chills, Fever, Weight Change Eyes: Denies: Pain, Vision Change HEENT: Denies: Difficulty Hearing, Difficulty Swallowing, Sinus Congestion Cardiovascular: Denies: Chest Pain, Palpitations Respiratory: Denies: Cough, Shortness of Breath Gastrointestinal: Denies: Diarrhea, Nausea, Vomiting Genitourinary: Denies: Dysuria, Hematuria Endocrine: Denies: Heat/ Cold Intolerance, Polydipsia, Polyuria Hematologic/ Lymphatic: Denies: Easy Bruising, Easy Bleeding - Physical Exam Vital Signs Temp Pulse Resp BP 96.0 F L 98 16 140/74 H 09/02/20 07:54 09/02/20 07:54 09/02/20 07:54 09/02/20 07:54 General: Alert, Oriented x3, Cooperative, No apparent distress, Well developed, Well nourished HEENT: Atraumatic, PERRLA, EOMI, Normocephalic Oral: Moist Mucosa Neck: No JVD Lungs: Normal air movement Abdomen: Non-Distended Extremities: No clubbing, No cyanosis, No Calf Tenderness, - - Minimal swelling and edema are noted in the patient's left lower extremity. Chronic hyperpigmentation is noted in the gaiter area. The wound on the left lateral calf persists. It is slightly smaller in size. There is a small amount of bioburden. There is no sign of infection or cellulitis. Addt'l Wound Findings: Wound dimensions are documented elsewhere. Skin: No rashes Wound Measurements and Assessment WC - Nurse 1 - General Ulcer Measurement Start: 09/02/20 07:54 Freq: Status: Active Protocol: Activity Type Activity Date Activity User E-Sign Co-Sign Detail Recorded Client Recorded Date Recorded By Document 09/02/20 07:54 [id number] 09/02/20 07:56 MELISSA 09/02/20 07:54 Wound Center Nurse 1 [Ulcer Assessment] #1 Lateral LLE -Combined with other wound No -Current Size (cm) - Length 0.9 -Current Size (cm) - Width 1.4 -Current Size (cm) - Depth 0.1 -Total Square Cm 1.26 -Photo Taken No -Epithelialization Small 1-33% -Tunneling No -Undermining/Tunneling No -Circular Undermining No -Exudate Amt Small -Exudate Type Serosanguineous -Wound Margin Flat & Intact -Granulation Amt Medium (34-66%) -Granulation Quality Red -Slough/Fibrin Yes -Necrosis Amt Small (1-33%) -Necrotic Tissue Type Adherent Slough -Structure Exposed N/A -Texture (Lois-wound Skin Appearance) Assessed, Localized Edema -Moisture (Lois-wound Skin Appearance Assessed,Dry/ ) Scaly -Color (Lois-wound Skin Appearance) Assessed, Hemosiderin Staining -Temperature (Lois-wound Skin No Abnormality Appearance) (Pt Warm) -Tenderness on Palpation (Lois-wound No Skin Appearance) -Ulcer Cleansing Rinsed/ Irrigated with Saline -Foul Odor after Cleansing No -Anesthetic Used 4% Lidocaine Solution [Edema Assessment] -Lower Limb Edema Present Yes -Left Calf (cm) 41.7 -Left Ankle (cm) 25.2 Musculoskeletal: No Muscle Wasting Neurological: Cranial nerves II-XII grossly intact, Neuro grossly intact Psych/Mental Status: Normal Affect, Appropriate, Alert and oriented to time, place, person, mood and affect Debridement Note Laterality: Left - Lateral calf Type of Debridement: Excisional debridement Anesthesia Used: 5% Lidocaine Gel Depth: Down to and including healthy tissue, in the subcutaneous layer Percentage of wound debrided: 100 Instrument Used: 5mm curette Tissue Removed: Bioburden Severity: Fat Layer Exposed Amount of bleeding with debridement: Mild Bleeding Controlled with: Compression and gauze Patient tolerated procedure well Assessment/Plan Assessment: This is a 60-year-old male who presented elsewhere initially with a large abscess on the left lateral calf. He was hospitalized for approximately 5 days, and underwent incision and drainage of the abscess. He presented here for definitive management. At the time of his initial presentation, the patient was noted to have a large amount of frankly necrotic and nonviable tissue present at the site of his former abscess, with some tunneling as well. The patient also suffers from longstanding swelling and edema of his lower extremities, and is known to have a history of superficial thrombophlebitis in the left lower extremity previously. Physical findings suggest longstanding chronic venous insufficiency. The patient has undergone a battery of diagnostic testing. An x-ray of the left tibia/fibula shows soft tissue changes, but no other abnormalities. Laboratory results from 03/20/2020 are as follows: White blood count 6.0, hemoglobin 14.4, hematocrit 44.7, platelets 247,000, sodium 137, potassium 4.1, chloride 104, BUN 20, creatinine 0.76, glucose 127, calcium 9.1, total bilirubin 0.60, AST 14, ALT 31, alkaline phosphatase 57, total protein 7.6, albumin 4.1, prealbumin 29.2. Recently, a noninvasive lower extremity arterial study revealed no evidence of significant arterial occlusive disease in the lower extremities. A venous duplex examination revealed incompetence of the great saphenous veins bilaterally. At this juncture, the patient appears to be progressing well, with a progressive decrease in the size and depth of his wound. Undermining posteriorly is resolved. Plan: The patient has been advised to continue conservative treatment measures. These are to include leg elevation. He is to continue sleeping on a flat mattress at night. His legs are to be elevated to heart level, or higher, even during daytime hours. This is to be implemented as much as possible. The patient has been advised to refrain from prolonged, idle standing and sitting. Activity has been encouraged. Implementation of the calf and foot muscle pumps has been explained. Weight loss is also been recommended. We are to continue compression by means of SurePress wraps to both lower extremities. The patient has previously been provided with a prescription for knee-high graduated compression stockings of 20 to 30 mmHg compression, and has recently obtained the stockings, and wearing daily. The nonviable and necrotic tissue has been removed from the patient's wound by means of excisional and enzymatic debridements. We initiated the use of a Snap VAC, but have been using Promogran topically on a daily basis recently. The patient has continued to do well. We are to continue with the use of Promogran for now. The patient is to return in 1 week for reassessment. Once again, we have reinforced the need for compression, elevation, avoidance of prolonged idle sitting, etc. We will continue to monitor the patient's wound serially, and to assess the patient's progress. Patient smokes rarely, but has been advised to refrain from his smoking habit. Influenza vaccine was not administered today. Patient stands 5 feet 10 inches tall. He weighs 246 pounds. His BMI is 35.3, which places him in a class II obesity category. Weight loss has been recommended, in collaboration with the patient's primary care physician has been advised.
[2020-09-10 13:35] VITALS: BP 149/77; PULSE 89; TEMP 36.4; BMI 35.3
[2020-09-10 14:05] VITALS: BP 145/77
--- NOTE | 2020-09-10 14:30 | PCM.WC.HP ---
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 Code(s): I87.093 - Postthrombotic syndrome with other complications of bilateral lower extremity (7) Hyperpigmentation of skin Status: Chronic Code(s): L81.9 - Disorder of pigmentation, unspecified (8) Lipodermatosclerosis of both lower extremities Status: Chronic Code(s): I83.11 - Varicose veins of right lower extremity with inflammation; I83.12 - Varicose veins of left lower extremity with inflammation (9) Diallo phlebectatica Status: Chronic (10) Wound of left leg Status: Chronic Qualifiers: Code(s): S81.802A - Unspecified open wound, left lower leg, initial encounter (11) Necrosis Status: Chronic Code(s): I96 - Gangrene, not elsewhere classified (12) Obesity (BMI 35.0-39.9 without comorbidity) Status: Chronic Code(s): E66.9 - Obesity, unspecified (13) Personal history of thrombophlebitis Status: Chronic Code(s): Z86.72 - Personal history of thrombophlebitis History of Present Illness Date of Service: 09/10/20 Chief Complaint: Open wound of the left lateral calf, status-post incision and drainage of abscess History of Wound: This is a 60-year-old male who was admitted to [facility] approximately 1 month prior to presentation with a large abscess on the left lateral calf. On February 11, 2020, he underwent incision and drainage of the abscess. He spent approximately 5 days in the hospital, and was subsequently discharged on Augmentin. The patient claims to sleep on a flat mattress at night. However, he suffers from chronic swelling and edema in both lower extremities. Additionally, he has a history of superficial thrombophlebitis in the left lower extremity, and has undergone a prior left lower extremity vein stripping procedure in the remote past. Patient has developed chronic skin changes in his lower extremities, which include hyperpigmentation and lipodermatosclerosis in the gaiter areas bilaterally. Patient is also noted to have diallo phlebectatica at ankle level bilaterally. The patient claims to be relatively active. Management the time of presentation included the use of a wet-to-dry gauze packing daily. It is noted that patient underwent a venous duplex examination during his hospitalization recently, that was negative for any evidence of thrombosis, but indicated valvular incompetence of the deep and superficial venous systems bilaterally. 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 Home Medications: Ambulatory Orders Medication Instructions Recorded Augmentin 875-125 Tablet 875 mg PO BID 03/18/20 Rosuvastatin Calcium [Crestor] 20 mg PO DAILY 03/18/20 - Family History Paternal - - Patient's father at the age of 72 with a history of cerebrovascular accident and venous disease. Patient's mother at the age of 90, of old age. Smoking Status: Light Smoker (<10/day) Tobacco Use: Cigarettes Review of Systems Constitutional: Denies: Chills, Fever, Weight Change Eyes: Denies: Pain, Vision Change HEENT: Denies: Difficulty Hearing, Difficulty Swallowing, Sinus Congestion Cardiovascular: Denies: Chest Pain, Palpitations Respiratory: Denies: Cough, Shortness of Breath Gastrointestinal: Denies: Diarrhea, Nausea, Vomiting Genitourinary: Denies: Dysuria, Hematuria Endocrine: Denies: Heat/ Cold Intolerance, Polydipsia, Polyuria Hematologic/ Lymphatic: Denies: Easy Bruising, Easy Bleeding - Physical Exam Vital Signs Temp Pulse Resp BP 97.5 F L 89 16 145/77 H 09/10/20 13:35 09/10/20 13:35 09/02/20 07:54 09/10/20 14:05 General: Alert, Oriented x3, Cooperative, No apparent distress, Well developed, Well nourished HEENT: Atraumatic, PERRLA, EOMI, Normocephalic Oral: Moist Mucosa Neck: No JVD Lungs: Normal air movement Abdomen: Non-Distended Extremities: No clubbing, No cyanosis, No Calf Tenderness, - - Mild swelling and edema persist in the patient's left lower extremity. Chronic hyperpigmentation persists as well. Addt'l Wound Findings: The wound on the left lateral calf persists. It is much smaller in size. Dimensions are documented elsewhere. There is a small amount of bioburden. There is no sign of infection or cellulitis. Wound Measurements and Assessment WC - Nurse 1 - General Ulcer Measurement Start: 09/02/20 07:54 Freq: Status: Active Protocol: Activity Type Activity Date Activity User E-Sign Co-Sign Detail Recorded Client Recorded Date Recorded By Document 09/10/20 13:35 MAYTE [id number] 09/10/20 13:41 KR 09/10/20 13:35 Wound Center Nurse 1 [Ulcer Assessment] #1 Lateral LLE -Current Size (cm) - Length 1.9 -Current Size (cm) - Width 1 -Current Size (cm) - Depth 0.1 -Total Square Cm 1.9 -Exudate Amt Small -Exudate Type Serosanguineous -Wound Margin Distinct, Outline Attached -Granulation Amt Small (1-33%) -Granulation Quality Red -Necrosis Amt Medium (34-66%) -Necrotic Tissue Type Adherent Slough -Texture (Lois-wound Skin Appearance) Assessed, Scarring -Moisture (Lois-wound Skin Appearance No Abnormality, ) Assessed -Color (Losi-wound Skin Appearance) No Abnormality, Assessed -Temperature (Lois-wound Skin No Abnormality Appearance) (Pt Warm) -Tenderness on Palpation (Lois-wound No Skin Appearance) -Ulcer Cleansing soapy water -Foul Odor after Cleansing No -Anesthetic Used 4% Lidocaine Solution [Edema Assessment] -Left Calf (cm) 44.7 -Left Ankle (cm) 27.8 WC - Nurse 3 - General Ulcer D/C NN Start: 09/02/20 07:54 Freq: Status: Active Protocol: Activity Type Activity Date Activity User E-Sign Co-Sign Detail Recorded Client Recorded Date Recorded By Document 09/10/20 14:05 MAYTE [id number] 09/10/20 14:06 MAYTE 09/10/20 14:05 Wound Care Nurse 3 [Wound Dressing] #1 Lateral LLE -Ulcer Cleansing Rinsed/ Irrigated with Saline -Primary Dressing Applied Promogran -Primary Dressing Covered/Secured Dry Gauze,Dry with Gauze & Roll Gauze,Secured with Tape -Promogran 1 [Compression Applied] Left -Stockings Yes [Post Procedure Tolerated] -Treatment Response Procedure Tolerated Well Vital Signs [Blood Pressure] -Blood Pressure (90/60-120/80) 145/77 H -Blood Pressure Mean (mm Hg) 99 -Source Monitor -Position Semi-Fowlers -Blood Pressure Location Left Arm Pain Scale: 0-10 Numeric [Pain] -Is Patient Pain Free? Yes Teaching: Wound Center [Wound Center Education] (Items with an * have Printed Materials Available- Please identify what is given to patient under the Teaching materials given to patient and caregiver Section. Control Swelling with Leg Elevation -Person Taught Patient -Teaching Method Discussion -Response to teaching Verbalize understanding - Visit Discharge [Visit Discharge Information] -Discharge Condition Stable -Ambulatory Status Ambulatory -Transportation Private Auto -Medication Reconcilliation completed No & provided to patient/care provider -Clinical Summary of Care Provided Yes Musculoskeletal: No Muscle Wasting Neurological: Cranial nerves II-XII grossly intact, Neuro grossly intact Psych/Mental Status: Normal Affect, Appropriate, Alert and oriented to time, place, person, mood and affect Debridement Note Post-Debridement Measurements/Treatment - Nurse 2 - General Ulcer CM Notes Start: 09/02/20 07:54 Freq: Status: Active Protocol: Activity Type Activity Date Activity User E-Sign Co-Sign Detail Recorded Client Recorded Date Recorded By Document 09/02/20 10:19 [place] [id number] 09/02/20 10:20 [place] 09/02/20 10:19 Wound Center Nurse 2 #1 Lateral LLE -Time 08:00 -Correct Patient Yes -Correct Side, Site, Position Yes -Correct Procedure Yes -Procedure Performed Yes -Type of Procedure Debridement -Clinical Debridement Subcutaneous -Tissue Removed Subcutaneous -Post Debridement (cm) - Length 0.9 -Post Debridement (cm) - Width 1.4 -Post Debridement (cm) - Depth 0.1 -Total Square (Post) (cm) 1.26 -Area of Debridement (cm) - Length 0.9 -Area of Debridement (cm) - Width 1.4 -Total Square (Area) (cm) 1.26 -Tunneling No -Undermining/Tunneling No -Circular Undermining No -Wound/Ulcer Outcome Not Healed -Ulcer Cleansing Rinsed/ Irrigated with Saline -Foul Odor after Cleansing No -Bioengineered Tissue No -Debridement - Subq, 1st 20sq cm Yes Pain Scale: 0-10 Numeric Is Patient Pain Free? Yes - Nurse 3 - General Ulcer D/C NN Start: 09/02/20 07:54 Freq: Status: Active Protocol: Activity Type Activity Date Activity User E-Sign Co-Sign Detail Recorded Client Recorded Date Recorded By Document 09/02/20 08:13 [id number] 09/02/20 08:16 Document 09/10/20 14:05 KR [id number] 09/10/20 14:06 09/02/20 09/10/20 08:13 14:05 Wound Care Nurse 3 #1 Lateral LLE -Ulcer Cleansing Rinsed/ Rinsed/ Irrigated with Irrigated with Saline Saline -Foul Odor after Cleansing No -Primary Dressing Applied Promogran Promogran -Primary Dressing Covered/Secured with Dry Gauze, Dry Gauze,Dry Secured with Gauze & Roll Tape Gauze,Secured with Tape -Promogran 1 1 Left -Stockings Yes Yes Treatment Response Procedure Tolerated Well Vital Signs Blood Pressure (90/60-120/80) 145/77 H Blood Pressure Mean (mm Hg) 99 Source Monitor Position Semi-Fowlers Blood Pressure Location Left Arm Pain Scale: 0-10 Numeric Is Patient Pain Free? Yes Yes Teaching: Wound Center Control Swelling with Leg Elevation -Person Taught Patient -Teaching Method Discussion -Response to teaching Verbalize understanding - Visit Discharge Discharge Condition Stable Stable Ambulatory Status Ambulatory Ambulatory Transportation Private Auto Private Auto Medication Reconcilliation completed & Yes No provided to patient/care provider Clinical Summary of Care Provided Yes Yes Laterality: Left - Lateral calf Type of Debridement: Excisional debridement Anesthesia Used: 5% Lidocaine Gel Depth: Down to and including healthy tissue, in the subcutaneous layer Percentage of wound debrided: 100 Instrument Used: 5mm curette Tissue Removed: Bioburden Severity: Fat Layer Exposed Amount of bleeding with debridement: Mild Bleeding Controlled with: Compression and gauze Patient tolerated procedure well Assessment/Plan Active Problems Leg swelling (Chronic) Leg edema (Chronic) Abscess of left leg (Chronic) Surgical wound present (Chronic) Chronic venous insufficiency (Chronic) 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 He was hospitalized for approximately 5 days, and underwent incision and drainage of the abscess. He presented here for definitive management. At the time of his initial presentation, the patient was noted to have a large amount of frankly necrotic and nonviable tissue present at the site of his former abscess, with some tunneling as well. The patient also suffers from longstanding swelling and edema of his lower extremities, and is known to have a history of superficial thrombophlebitis in the left lower extremity previously. Physical findings suggest longstanding chronic venous insufficiency. The patient has undergone a battery of diagnostic testing. An x-ray of the left tibia/fibula shows soft tissue changes, but no other abnormalities. Laboratory results from 03/20/2020 are as follows: White blood count 6.0, hemoglobin 14.4, hematocrit 44.7, platelets 247,000, sodium 137, potassium 4.1, chloride 104, BUN 20, creatinine 0.76, glucose 127, calcium 9.1, total bilirubin 0.60, AST 14, ALT 31, alkaline phosphatase 57, total protein 7.6, albumin 4.1, prealbumin 29.2. Recently, a noninvasive lower extremity arterial study revealed no evidence of significant arterial occlusive disease in the lower extremities. A venous duplex examination revealed incompetence of the great saphenous veins bilaterally. At this juncture, the patient appears to be progressing well, with a progressive decrease in the size and depth of his wound. Undermining posteriorly is resolved. Plan: The patient has been advised to continue conservative treatment measures. These are to include leg elevation. He is to continue sleeping on a flat mattress at night. His legs are to be elevated to heart level, or higher, even during daytime hours. This is to be implemented as much as possible. The patient has been advised to refrain from prolonged, idle standing and sitting. Activity has been encouraged. Implementation of the calf and foot muscle pumps has been explained. Weight loss is also been recommended. We are to continue compression by means of SurePress wraps to both lower extremities. The patient has previously been provided with a prescription for knee-high graduated compression stockings of 20 to 30 mmHg compression, and has recently obtained the stockings, and wearing daily. The nonviable and necrotic tissue has been removed from the patient's wound by means of excisional and enzymatic debridements. We initiated the use of a Snap VAC, but have been using Promogran topically on a daily basis recently. The patient has continued to do well. We are to continue with the use of Promogran for now. The patient is to return in 1 week for reassessment. Once again, we have reinforced the need for compression, elevation, avoidance of prolonged idle sitting, etc. We will continue to monitor the patient's wound serially, and to assess the patient's progress. Patient smokes rarely, but has been advised to refrain from his smoking habit. Influenza vaccine was not administered today. Patient stands 5 feet 10 inches tall. He weighs 246 pounds. His BMI is 35.3, which places him in a class II obesity category. Weight loss has been recommended, in collaboration with the patient's primary care physician has been advised.
[2020-09-16 07:54] VITALS: BP 153/79; PULSE 85; RESP 16; TEMP 36.1; BMI 35.3
--- NOTE | 2020-09-16 08:25 | PCM.WC.HP ---
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 Code(s): I87.093 - Postthrombotic syndrome with other complications of bilateral lower extremity (7) Hyperpigmentation of skin Status: Chronic Code(s): L81.9 - Disorder of pigmentation, unspecified (8) Lipodermatosclerosis of both lower extremities Status: Chronic Code(s): I83.11 - Varicose veins of right lower extremity with inflammation; I83.12 - Varicose veins of left lower extremity with inflammation (9) Diallo phlebectatica Status: Chronic (10) Wound of left leg Status: Chronic Qualifiers: Code(s): S81.802A - Unspecified open wound, left lower leg, initial encounter (11) Necrosis Status: Chronic Code(s): I96 - Gangrene, not elsewhere classified (12) Obesity (BMI 35.0-39.9 without comorbidity) Status: Chronic Code(s): E66.9 - Obesity, unspecified (13) Personal history of thrombophlebitis Status: Chronic Code(s): Z86.72 - Personal history of thrombophlebitis History of Present Illness Date of Service: 09/16/20 Chief Complaint: Open wound of the left lateral calf, status-post incision and drainage of abscess History of Wound: This is a 60-year-old male who was admitted to [facility] approximately 1 month prior to presentation with a large abscess on the left lateral calf. On February 11, 2020, he underwent incision and drainage of the abscess. He spent approximately 5 days in the hospital, and was subsequently discharged on Augmentin. The patient claims to sleep on a flat mattress at night. However, he suffers from chronic swelling and edema in both lower extremities. Additionally, he has a history of superficial thrombophlebitis in the left lower extremity, and has undergone a prior left lower extremity vein stripping procedure in the remote past. Patient has developed chronic skin changes in his lower extremities, which include hyperpigmentation and lipodermatosclerosis in the gaiter areas bilaterally. Patient is also noted to have diallo phlebectatica at ankle level bilaterally. The patient claims to be relatively active. Management the time of presentation included the use of a wet-to-dry gauze packing daily. It is noted that patient underwent a venous duplex examination during his hospitalization recently, that was negative for any evidence of thrombosis, but indicated valvular incompetence of the deep and superficial venous systems bilaterally. 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 Home Medications: Ambulatory Orders Medication Instructions Recorded Augmentin 875-125 Tablet 875 mg PO BID 03/18/20 Rosuvastatin Calcium [Crestor] 20 mg PO DAILY 03/18/20 - Family History Paternal - - Patient's father at the age of 72 with a history of cerebrovascular accident and venous disease. Patient's mother at the age of 90, of old age. Smoking Status: Light Smoker (<10/day) Tobacco Use: Cigarettes Review of Systems Constitutional: Denies: Chills, Fever, Weight Change Eyes: Denies: Pain, Vision Change HEENT: Denies: Difficulty Hearing, Difficulty Swallowing, Sinus Congestion Cardiovascular: Denies: Chest Pain, Palpitations Respiratory: Denies: Cough, Shortness of Breath Gastrointestinal: Denies: Diarrhea, Nausea, Vomiting Genitourinary: Denies: Dysuria, Hematuria Endocrine: Denies: Heat/ Cold Intolerance, Polydipsia, Polyuria Hematologic/ Lymphatic: Denies: Easy Bruising, Easy Bleeding - Physical Exam Vital Signs Temp Pulse Resp BP 96.9 F L 85 16 153/79 H 09/16/20 07:54 09/16/20 07:54 09/16/20 07:54 09/16/20 07:54 General: Alert, Oriented x3, Cooperative, No apparent distress, Well developed, Well nourished HEENT: Atraumatic, PERRLA, EOMI, Normocephalic Oral: Moist Mucosa Neck: No JVD Lungs: Normal air movement Abdomen: Non-Distended Extremities: No clubbing, No cyanosis, No Calf Tenderness, - - Mild swelling and edema persist in the patient's left lower extremity. Chronic venous changes also persist, namely hyperpigmentation and lipodermatosclerosis in the gaiter area. Addt'l Wound Findings: The patient's wound persists on the distal left lateral calf. It appears to be smaller in size. Dimensions are documented elsewhere. There is no sign of infection or cellulitis. There is a small amount of bioburden. The base of the wound is generally pink and healthy in appearance. Wound Measurements and Assessment WC - Nurse 1 - General Ulcer Measurement Start: 09/02/20 07:54 Freq: Status: Active Protocol: Activity Type Activity Date Activity User E-Sign Co-Sign Detail Recorded Client Recorded Date Recorded By Document 09/16/20 07:54 [facility] [id number] 09/16/20 07:56 [facility] 09/16/20 07:54 Wound Center Nurse 1 [Ulcer Assessment] #1 Lateral LLE -Combined with other wound No -Current Size (cm) - Length 1.5 -Current Size (cm) - Width 1.6 -Current Size (cm) - Depth 0.1 -Total Square Cm 2.40 -Photo Taken No -Epithelialization Small 1-33% -Tunneling No -Undermining/Tunneling No -Circular Undermining No -Exudate Amt Small -Exudate Type Serosanguineous -Wound Margin Distinct, Outline Attached -Granulation Amt Large (67-100%) -Granulation Quality Red -Slough/Fibrin Yes -Necrosis Amt Small (1-33%) -Necrotic Tissue Type Adherent Slough -Texture (Lois-wound Skin Appearance) Assessed, Scarring -Moisture (Lois-wound Skin Appearance Assessed,Dry/ ) Scaly -Color (Lois-wound Skin Appearance) Assessed, Hemosiderin Staining -Temperature (Lois-wound Skin No Abnormality Appearance) (Pt Warm) -Tenderness on Palpation (Lois-wound No Skin Appearance) -Ulcer Cleansing Rinsed/ Irrigated with Saline -Foul Odor after Cleansing No -Anesthetic Used 4% Lidocaine Solution WC - Nurse 3 - General Ulcer D/C NN Start: 09/02/20 07:54 Freq: Status: Active Protocol: Activity Type Activity Date Activity User E-Sign Co-Sign Detail Recorded Client Recorded Date Recorded By Document 09/16/20 08:17 MW [id number] 09/16/20 08:18 MW 09/16/20 08:17 Wound Care Nurse 3 [Wound Dressing] -Ulcer Cleansing Rinsed/ Irrigated with Saline -Foul Odor after Cleansing No -Negative Pressure Wound Therapy N/A -Primary Dressing Applied Promogran -Primary Dressing Covered/Secured Dry Gauze, with Secured with Tape -Promogran 1 [Compression Applied] Left -Lotion applied to leg before No compression wrap -Stockings Yes [Post Procedure Tolerated] -Treatment Response Procedure Tolerated Well Pain Scale: 0-10 Numeric [Pain] -Is Patient Pain Free? Yes Teaching: Wound Center [Wound Center Education] (Items with an * have Printed Materials Available- Please identify what is given to patient under the Teaching materials given to patient and caregiver Section. Dressing Your Wound -Person Taught Patient -Teaching Method Discussion, Demonstration -Response to teaching Verbalize understanding WC - Visit Discharge [Visit Discharge Information] -Discharge Condition Stable -Ambulatory Status Ambulatory -Transportation Private Auto -Accompanied by self -Medication Reconcilliation completed No & provided to patient/care provider -Clinical Summary of Care Provided Yes Musculoskeletal: No Muscle Wasting Neurological: Cranial nerves II-XII grossly intact, Neuro grossly intact Psych/Mental Status: Normal Affect, Appropriate, Alert and oriented to time, place, person, mood and affect Debridement Note Post-Debridement Measurements/Treatment WC - Nurse 2 - General Ulcer CM Notes Start: 09/02/20 07:54 Freq: Status: Active Protocol: Activity Type Activity Date Activity User E-Sign Co-Sign Detail Recorded Client Recorded Date Recorded By Document 09/02/20 10:19 PL [id number] 09/02/20 10:20 PL Document 09/10/20 14:32 PL [id number] 09/10/20 14:39 PL 09/02/20 09/10/20 10:19 14:32 Wound Center Nurse 2 #1 Lateral LLE -Time 08:00 13:51 -Correct Patient Yes Yes -Correct Side, Site, Position Yes Yes -Correct Procedure Yes Yes -Procedure Performed Yes Yes -Type of Procedure Debridement Debridement -Clinical Debridement Subcutaneous Subcutaneous -Tissue Removed Subcutaneous Subcutaneous -Post Debridement (cm) - Length 0.9 1.9 -Post Debridement (cm) - Width 1.4 1 -Post Debridement (cm) - Depth 0.1 0.1 -Total Square (Post) (cm) 1.26 1.9 -Area of Debridement (cm) - Length 0.9 1.9 -Area of Debridement (cm) - Width 1.4 1 -Total Square (Area) (cm) 1.26 1.9 -Tunneling No No -Undermining/Tunneling No No -Circular Undermining No No -Wound/Ulcer Outcome Not Healed Not Healed -Ulcer Cleansing Rinsed/ Rinsed/ Irrigated with Irrigated with Saline Saline -Foul Odor after Cleansing No No -Bioengineered Tissue No No -Debridement - Subq, 1st 20sq cm Yes Yes Pain Scale: 0-10 Numeric Is Patient Pain Free? Yes Yes WC - Nurse 3 - General Ulcer D/C NN Start: 09/02/20 07:54 Freq: Status: Active Protocol: Activity Type Activity Date Activity User E-Sign Co-Sign Detail Recorded Client Recorded Date Recorded By Document 09/02/20 08:13 JF [id number] 09/02/20 08:16 JF Document 09/10/20 14:05 KR [id number] 09/10/20 14:06 KR Document 09/16/20 08:17 MW [id number] 09/16/20 08:18 MW 09/02/20 09/10/20 09/16/20 08:13 14:05 08:17 Wound Care Nurse 3 #1 Lateral LLE -Ulcer Cleansing Rinsed/ Rinsed/ Rinsed/ Irrigated with Irrigated with Irrigated with Saline Saline Saline -Foul Odor after Cleansing No No -Negative Pressure Wound Therapy N/A -Primary Dressing Applied Promogran Promogran Promogran -Primary Dressing Covered/Secured with Dry Gauze, Dry Gauze,Dry Dry Gauze, Secured with Gauze & Roll Secured with Tape Gauze,Secured Tape with Tape -Promogran 1 1 1 Left -Lotion applied to leg before No compression wrap -Stockings Yes Yes Yes Treatment Response Procedure Procedure Tolerated Well Tolerated Well Vital Signs Blood Pressure (90/60-120/80) 145/77 H Blood Pressure Mean (mm Hg) 99 Source Monitor Position Semi-Fowlers Blood Pressure Location Left Arm Pain Scale: 0-10 Numeric Is Patient Pain Free? Yes Yes Yes Teaching: Wound Center Control Swelling with Leg Elevation -Person Taught Patient -Teaching Method Discussion -Response to teaching Verbalize understanding Dressing Your Wound -Person Taught Patient -Teaching Method Discussion, Demonstration -Response to teaching Verbalize understanding WC - Visit Discharge Discharge Condition Stable Stable Stable Ambulatory Status Ambulatory Ambulatory Ambulatory Transportation Private Auto Private Auto Private Auto Accompanied by self Medication Reconcilliation completed & Yes No No provided to patient/care provider Clinical Summary of Care Provided Yes Yes Yes Laterality: Left - Lateral calf Type of Debridement: Excisional debridement Anesthesia Used: 5% Lidocaine Gel Depth: Down to and including healthy tissue, in the subcutaneous layer Percentage of wound debrided: 100 Instrument Used: 7mm curette Tissue Removed: Bioburden Severity: Fat Layer Exposed Amount of bleeding with debridement: Mild Bleeding Controlled with: Compression and gauze Patient tolerated procedure well Assessment/Plan Active Problems Leg swelling (Chronic) Leg edema (Chronic) Abscess of left leg (Chronic) Surgical wound present (Chronic) Chronic venous insufficiency (Chronic) 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 He was hospitalized for approximately 5 days, and underwent incision and drainage of the abscess. He presented here for definitive management. At the time of his initial presentation, the patient was noted to have a large amount of frankly necrotic and nonviable tissue present at the site of his former abscess, with some tunneling as well. The patient also suffers from longstanding swelling and edema of his lower extremities, and is known to have a history of superficial thrombophlebitis in the left lower extremity previously. Physical findings suggest longstanding chronic venous insufficiency. The patient has undergone a battery of diagnostic testing. An x-ray of the left tibia/fibula shows soft tissue changes, but no other abnormalities. Laboratory results from 03/20/2020 are as follows: White blood count 6.0, hemoglobin 14.4, hematocrit 44.7, platelets 247,000, sodium 137, potassium 4.1, chloride 104, BUN 20, creatinine 0.76, glucose 127, calcium 9.1, total bilirubin 0.60, AST 14, ALT 31, alkaline phosphatase 57, total protein 7.6, albumin 4.1, prealbumin 29.2. Recently, a noninvasive lower extremity arterial study revealed no evidence of significant arterial occlusive disease in the lower extremities. A venous duplex examination revealed incompetence of the great saphenous veins bilaterally. At this juncture, the patient appears to be progressing well, with a progressive decrease in the size and depth of his wound. Undermining posteriorly is resolved. Plan: The patient has been advised to continue conservative treatment measures. These are to include leg elevation. He is to continue sleeping on a flat mattress at night. His legs are to be elevated to heart level, or higher, even during daytime hours. This is to be implemented as much as possible. The patient has been advised to refrain from prolonged, idle standing and sitting. Activity has been encouraged. Implementation of the calf and foot muscle pumps has been explained. Weight loss is also been recommended. The patient has obtained graduated compression stockings of 20 to 30 mmHg compression, and has been wearing daily. The nonviable and necrotic tissue has been removed from the patient's wound by means of excisional and enzymatic debridements. We initiated the use of a Snap VAC, but have been using Promogran topically on a daily basis recently. The patient has continued to do well. We are to continue with the use of Promogran for now. The patient is to return in 1 week for reassessment. Once again, we have reinforced the need for compression, elevation, avoidance of prolonged idle sitting, etc. We will continue to monitor the patient's wound serially, and to assess the patient's progress. Patient smokes rarely, but has been advised to refrain from his smoking habit. Influenza vaccine was not administered today. Patient stands 5 feet 10 inches tall. He weighs 246 pounds. His BMI is 35.3, which places him in a class II obesity category. Weight loss has been recommended, and collaboration with the patient's primary care physician has been advised.
[2020-09-23 08:00] VITALS: BP 155/77; PULSE 78; TEMP 36.2; BMI 35.3
--- NOTE | 2020-09-23 08:17 | HP.PCM_ITS ---
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 Code(s): I87.093 - Postthrombotic syndrome with other complications of bilateral lower extremity (7) Hyperpigmentation of skin Status: Chronic Code(s): L81.9 - Disorder of pigmentation, unspecified (8) Lipodermatosclerosis of both lower extremities Status: Chronic Code(s): I83.11 - Varicose veins of right lower extremity with inflammation; I83.12 - Varicose veins of left lower extremity with inflammation (9) Diallo phlebectatica Status: Chronic (10) Wound of left leg Status: Chronic Qualifiers: Code(s): S81.802A - Unspecified open wound, left lower leg, initial encounter (11) Necrosis Status: Chronic Code(s): I96 - Gangrene, not elsewhere classified (12) Obesity (BMI 35.0-39.9 without comorbidity) Status: Chronic Code(s): E66.9 - Obesity, unspecified (13) Personal history of thrombophlebitis Status: Chronic Code(s): Z86.72 - Personal history of thrombophlebitis History of Present Illness Date of Service: 09/23/20 Chief Complaint: Open wound of the left lateral calf, status-post incision and drainage of abscess History of Wound: This is a 60-year-old male who was admitted to [facility] approximately 1 month prior to presentation with a large abscess on the left lateral calf. On February 11, 2020, he underwent incision and drainage of the abscess. He spent approximately 5 days in the hospital, and was subsequently discharged on Augmentin. The patient claims to sleep on a flat mattress at night. However, he suffers from chronic swelling and edema in both lower extremities. Additionally, he has a history of superficial thrombophlebitis in the left lower extremity, and has undergone a prior left lower extremity vein stripping procedure in the remote past. Patient has developed chronic skin changes in his lower extremities, which include hyperpigmentation and lipodermatosclerosis in the gaiter areas bilaterally. Patient is also noted to have diallo phlebectatica at ankle level bilaterally. The patient claims to be relatively active. Management the time of presentation included the use of a wet-to-dry gauze packing daily. It is noted that patient underwent a venous duplex examination during his hospitalization recently, that was negative for any evidence of thrombosis, but indicated valvular incompetence of the deep and superficial venous systems bilaterally. 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 Home Medications: Ambulatory Orders Medication Instructions Recorded Augmentin 875-125 Tablet 875 mg PO BID 03/18/20 Rosuvastatin Calcium [Crestor] 20 mg PO DAILY 03/18/20 - Family History Paternal - - Patient's father at the age of 72 with a history of cerebrovascular accident and venous disease. Patient's mother at the age of 90, of old age. Smoking Status: Light Smoker (<10/day) Tobacco Use: Cigarettes Review of Systems Constitutional: Denies: Chills, Fever, Weight Change Eyes: Denies: Pain, Vision Change HEENT: Denies: Difficulty Hearing, Difficulty Swallowing, Sinus Congestion Cardiovascular: Denies: Chest Pain, Palpitations Respiratory: Denies: Cough, Shortness of Breath Gastrointestinal: Denies: Diarrhea, Nausea, Vomiting Genitourinary: Denies: Dysuria, Hematuria Endocrine: Denies: Heat/ Cold Intolerance, Polydipsia, Polyuria Hematologic/ Lymphatic: Denies: Easy Bruising, Easy Bleeding - Physical Exam Vital Signs Temp Pulse Resp BP 97.2 F L 78 16 155/77 H 09/23/20 08:00 09/23/20 08:00 09/16/20 07:54 09/23/20 08:00 General: Alert, Oriented x3, Cooperative, No apparent distress, Well developed, Well nourished HEENT: Atraumatic, PERRLA, EOMI, Normocephalic Oral: Moist Mucosa Neck: No JVD Lungs: Normal air movement Abdomen: Non-Distended Extremities: No clubbing, No cyanosis, No Calf Tenderness, - - Only slight swelling and edema are noted in the patient's left lower extremity. Chronic hyperpigmentation and lipodermatosclerosis are noted in the left gaiter area. Addt'l Wound Findings: The wound on the left lateral calf persists. It is little changed in size or a ppearance. Dimensions are documented elsewhere. There is no sign of infection or cellulitis. There is a small amount of bioburden. The base of the wound is generally pink and healthy in appearance. Skin: No rashes Wound Measurements and Assessment WC - Nurse 1 - General Ulcer Measurement Start: 09/02/20 07:54 Freq: Status: Active Protocol: Activity Type Activity Date Activity User E-Sign Co-Sign Detail Recorded Client Recorded Date Recorded By Document 09/23/20 08:00 MAYTE [id number] 09/23/20 08:02 MAYTE 09/23/20 08:00 Wound Center Nurse 1 [Ulcer Assessment] #1 Lateral LLE -Current Size (cm) - Length 1.5 -Current Size (cm) - Width 2 -Current Size (cm) - Depth 0.4 -Total Square Cm 3.0 -Exudate Amt Small -Exudate Type Serosanguineous -Wound Margin Distinct, Outline Attached -Granulation Amt Small (1-33%) -Granulation Quality [place] -Necrosis Amt Medium (34-66%) -Necrotic Tissue Type Adherent Slough -Texture (Lois-wound Skin Appearance) Assessed, Scarring -Moisture (Lois-wound Skin Appearance No Abnormality, ) Assessed -Color (Lois-wound Skin Appearance) No Abnormality, Assessed -Temperature (Lois-wound Skin No Abnormality Appearance) (Pt Warm) -Tenderness on Palpation (Lois-wound No Skin Appearance) -Ulcer Cleansing Rinsed/ Irrigated with Saline -Foul Odor after Cleansing No -Anesthetic Used 5% Lidocaine Gel Musculoskeletal: No Muscle Wasting Neurological: Cranial nerves II-XII grossly intact, Neuro grossly intact Psych/Mental Status: Normal Affect, Appropriate, Alert and oriented to time, place, person, mood and affect Debridement Note Post-Debridement Measurements/Treatment WC - Nurse 2 - General Ulcer CM Notes Start: 09/02/20 07:54 Freq: Status: Active Protocol: Activity Type Activity Date Activity User E-Sign Co-Sign Detail Recorded Client Recorded Date Recorded By Document 09/02/20 10:19 PL [id number] 09/02/20 10:20 PL Document 09/10/20 14:32 PL [id number] 09/10/20 14:39 PL Document 09/16/20 08:32 PL [id number] 09/16/20 08:33 PL 09/02/20 09/10/20 09/16/20 10:19 14:32 08:32 Wound Center Nurse 2 #1 Lateral LLE -Time 08:00 13:51 08:07 -Correct Patient Yes Yes Yes -Correct Side, Site, Position Yes Yes Yes -Correct Procedure Yes Yes Yes -Procedure Performed Yes Yes Yes -Type of Procedure Debridement Debridement Debridement -Clinical Debridement Subcutaneous Subcutaneous Subcutaneous -Tissue Removed Subcutaneous Subcutaneous Subcutaneous -Post Debridement (cm) - Length 0.9 1.9 1.5 -Post Debridement (cm) - Width 1.4 1 0.9 -Post Debridement (cm) - Depth 0.1 0.1 0.1 -Total Square (Post) (cm) 1.26 1.9 1.35 -Area of Debridement (cm) - Length 0.9 1.9 1.5 -Area of Debridement (cm) - Width 1.4 1 0.9 -Total Square (Area) (cm) 1.26 1.9 1.35 -Tunneling No No No -Undermining/Tunneling No No No -Circular Undermining No No No -Wound/Ulcer Outcome Not Healed Not Healed Not Healed -Ulcer Cleansing Rinsed/ Rinsed/ Rinsed/ Irrigated with Irrigated with Irrigated with Saline Saline Saline -Foul Odor after Cleansing No No No -Bioengineered Tissue No No No -Debridement - Subq, 1st 20sq cm Yes Yes Yes Pain Scale: 0-10 Numeric Is Patient Pain Free? Yes Yes Yes - Nurse 3 - General Ulcer D/C NN Start: 09/02/20 07:54 Freq: Status: Active Protocol: Activity Type Activity Date Activity User E-Sign Co-Sign Detail Recorded Client Recorded Date Recorded By Document 09/02/20 08:13 JF [id number] 09/02/20 08:16 JF Document 09/10/20 14:05 KR [id number] 09/10/20 14:06 KR Document 09/16/20 08:17 MW [id number] 09/16/20 08:18 MW 09/02/20 09/10/20 09/16/20 08:13 14:05 08:17 Wound Care Nurse 3 #1 Lateral LLE -Ulcer Cleansing Rinsed/ Rinsed/ Rinsed/ Irrigated with Irrigated with Irrigated with Saline Saline Saline -Foul Odor after Cleansing No No -Negative Pressure Wound Therapy N/A -Primary Dressing Applied Promogran Promogran Promogran -Primary Dressing Covered/Secured with Dry Gauze, Dry Gauze,Dry Dry Gauze, Secured with Gauze & Roll Secured with Tape Gauze,Secured Tape with Tape -Promogran 1 1 1 Left -Lotion applied to leg before No compression wrap -Stockings Yes Yes Yes Treatment Response Procedure Procedure Tolerated Well Tolerated Well Vital Signs Blood Pressure (90/60-120/80) 145/77 H Blood Pressure Mean (mm Hg) 99 Source Monitor Position Semi-Fowlers Blood Pressure Location Left Arm Pain Scale: 0-10 Numeric Is Patient Pain Free? Yes Yes Yes Teaching: Wound Center Control Swelling with Leg Elevation -Person Taught Patient -Teaching Method Discussion -Response to teaching Verbalize understanding Dressing Your Wound -Person Taught Patient -Teaching Method Discussion, Demonstration -Response to teaching Verbalize understanding WC - Visit Discharge Discharge Condition Stable Stable Stable Ambulatory Status Ambulatory Ambulatory Ambulatory Transportation Private Auto Private Auto Private Auto Accompanied by self Medication Reconcilliation completed & Yes No No provided to patient/care provider Clinical Summary of Care Provided Yes Yes Yes Laterality: Left - Lateral calf Type of Debridement: Excisional debridement Anesthesia Used: 5% Lidocaine Gel Depth: Down to and including healthy tissue, in the subcutaneous layer Percentage of wound debrided: 100 Instrument Used: 5mm curette Tissue Removed: Bioburden Severity: Fat Layer Exposed Amount of bleeding with debridement: Mild Bleeding Controlled with: Compression and gauze Patient tolerated procedure well Assessment/Plan Active Problems Leg swelling (Chronic) Leg edema (Chronic) Abscess of left leg (Chronic) Surgical wound present (Chronic) Chronic venous insufficiency (Chronic) 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 He was hospitalized for approximately 5 days, and underwent incision and drainage of the abscess. He presented here for definitive management. At the time of his initial presentation, the patient was noted to have a large amount of frankly necrotic and nonviable tissue present at the site of his former abscess, with some tunneling as well. The patient also suffers from longstanding swelling and edema of his lower extremities, and is known to have a history of superficial thrombophlebitis in the left lower extremity previously. Physical findings suggest longstanding chronic venous insufficiency. The patient has undergone a battery of diagnostic testing. An x-ray of the left tibia/fibula shows soft tissue changes, but no other abnormalities. Laboratory results from 03/20/2020 are as follows: White blood count 6.0, hemoglobin 14.4, hematocrit 44.7, platelets 247,000, sodium 137, potassium 4.1, chloride 104, BUN 20, creatinine 0.76, glucose 127, calcium 9.1, total bilirubin 0.60, AST 14, ALT 31, alkaline phosphatase 57, total protein 7.6, albumin 4.1, prealbumin 29.2. Recently, a noninvasive lower extremity arterial study revealed no evidence of significant arterial occlusive disease in the lower extremities. A venous duplex examination revealed incompetence of the great saphenous veins bilaterally. At this juncture, the patient appears to be progressing well, though little change has been noted in his left lateral calf wound in the last several weeks. Previously, there had been progressive decrease in the size and depth of his wound. Undermining posteriorly is resolved. Plan: The patient has been advised to continue conservative treatment measures. These are to include leg elevation. He is to continue sleeping on a flat mattress at night. His legs are to be elevated to heart level, or higher, even during daytime hours. This is to be implemented as much as possible. The patient has been advised to refrain from prolonged, idle standing and sitting. Activity has been encouraged. Implementation of the calf and foot muscle pumps has been explained. Weight loss is also been recommended. The patient has obtained graduated compression stockings of 20 to 30 mmHg compression, and has been wearing daily. The nonviable and necrotic tissue has been removed from the patient's wound by means of excisional and enzymatic debridements. We initiated the use of a Snap VAC, but have been using Promogran topically on a daily basis recently. The patient has continued to do well, though the progress of healing appears to have recently slowed. We are to continue with the use of Promogran for now. However, we are to seek approval for the use of a skin graft substitute such as EpiFix. The patient is to return in 1 week for reassessment. Once again, we have reinforced the need for compression, elevation, avoidance of prolonged idle sitting, etc. We will continue to monitor the patient's wound serially, and to assess the patient's progress. Patient smokes rarely, but has been advised to refrain from his smoking habit. Influenza vaccine was not administered today. Patient stands 5 feet 10 inches tall. He weighs 246 pounds. His BMI is 35.3, which places him in a class II obesity category. Weight loss has been recommended, and collaboration with the patient's primary care physician has been advised.
== END 2020-10-02 23:59 ==
LOC: WC 07:45
PROVIDERS: PCP Family Medicine; Referring Provider Surgery; Visit Provider Surgery
DX: L02.416 Cutaneous abscess of left lower limb (principal); Z86.72 Personal history of thrombophlebitis; I83.11 Varicose veins of right lower extremity with inflammation; I83.12 Varicose veins of left lower extremity with inflammation; M79.89 Other specified soft tissue disorders; R60.0 Localized edema; T14.8XXA Other injury of unspecified body region, initial encounter; E66.9 Obesity, unspecified; F17.210 Nicotine dependence, cigarettes, uncomplicated; Z68.35 Body mass index [BMI] 35.0-35.9, adult; I96 Gangrene, not elsewhere classified
CPT/HCPCS: 11042

== ENCOUNTER 2020-10-21 07:45 | Outpatient (RCR) | payer OTHER, SELFPAY ==
[2020-10-03 00:19] VITALS: BP 155/77; PULSE 78; RESP 16; TEMP 36.2
[2020-10-07 07:51] VITALS: BP 151/82; PULSE 89; RESP 18; TEMP 35.9; BMI 35.3
--- NOTE | 2020-10-07 08:21 | HP.PCM_ITS ---
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 Code(s): I87.093 - Postthrombotic syndrome with other complications of bilateral lower extremity (7) Hyperpigmentation of skin Status: Chronic Code(s): L81.9 - Disorder of pigmentation, unspecified (8) Lipodermatosclerosis of both lower extremities Status: Chronic Code(s): I83.11 - Varicose veins of right lower extremity with inflammation; I83.12 - Varicose veins of left lower extremity with inflammation (9) Diallo phlebectatica Status: Chronic (10) Wound of left leg Status: Chronic Qualifiers: Code(s): S81.802A - Unspecified open wound, left lower leg, initial encounter (11) Necrosis Status: Chronic Code(s): I96 - Gangrene, not elsewhere classified (12) Obesity (BMI 35.0-39.9 without comorbidity) Status: Chronic Code(s): E66.9 - Obesity, unspecified (13) Personal history of thrombophlebitis Status: Chronic Code(s): Z86.72 - Personal history of thrombophlebitis History of Present Illness Date of Service: 10/07/20 Chief Complaint: Open wound of the left lateral calf, status-post incision and drainage of abscess History of Wound: This is a 60-year-old male who was admitted to [place] approximately 1 month prior to presentation with a large abscess on the left lateral calf. On February 11, 2020, he underwent incision and drainage of the abscess. He spent approximately 5 days in the hospital, and was subsequently discharged on Augmentin. The patient claims to sleep on a flat mattress at night. However, he suffers from chronic swelling and edema in both lower extremities. Additionally, he has a history of superficial thrombophlebitis in the left lower extremity, and has undergone a prior left lower extremity vein stripping procedure in the remote past. Patient has developed chronic skin changes in his lower extremities, which include hyperpigmentation and lipodermatosclerosis in the gaiter areas bilaterally. Patient is also noted to have diallo phlebectatica at ankle level bilaterally. The patient claims to be relatively active. Management the time of presentation included the use of a wet-to-dry gauze packing daily. It is noted that patient underwent a venous duplex examination during his hospitalization recently, that was negative for any evidence of thrombosis, but indicated valvular incompetence of the deep and superficial venous systems bilaterally. 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 Home Medications: Ambulatory Orders Medication Instructions Recorded Augmentin 875-125 Tablet 875 mg PO BID 03/18/20 Rosuvastatin Calcium [Crestor] 20 mg PO DAILY 03/18/20 - Family History Paternal - - Patient's father at the age of 72 with a history of cerebrovascular accident and venous disease. Patient's mother at the age of 90, of old age. Smoking Status: Light Smoker (<10/day) Tobacco Use: Cigarettes Review of Systems Constitutional: Denies: Chills, Fever, Weight Change Eyes: Denies: Pain, Vision Change HEENT: Denies: Difficulty Hearing, Difficulty Swallowing, Sinus Congestion Cardiovascular: Denies: Chest Pain, Palpitations Respiratory: Denies: Cough, Shortness of Breath Gastrointestinal: Denies: Diarrhea, Nausea, Vomiting Genitourinary: Denies: Dysuria, Hematuria Endocrine: Denies: Heat/ Cold Intolerance, Polydipsia, Polyuria Hematologic/ Lymphatic: Denies: Easy Bruising, Easy Bleeding - Physical Exam Vital Signs Temp Pulse Resp BP 96.7 F L 89 18 151/82 H 10/07/20 07:51 10/07/20 07:51 10/07/20 07:51 10/07/20 07:51 General: Alert, Oriented x3, Cooperative, No apparent distress, Well developed, Well nourished HEENT: Atraumatic, PERRLA, EOMI, Normocephalic Oral: Moist Mucosa Neck: No JVD Lungs: Normal air movement Abdomen: Non-Distended Extremities: No clubbing, No cyanosis, No Calf Tenderness, - - Slight swelling and edema are noted in the patient's left lower extremity. Scattered large vari cosities are also noted. Chronic skin changes are noted, namely lipodermatosclerosis and hyperpigmentation, which have been previously documented. Addt'l Wound Findings: The wound on the left lateral calf persists. It is little changed in size or appearance. Dimensions are documented elsewhere. There is a small amount of bioburden. The base of the wound is generally pink and healthy in appearance, with a small area of hypertrophic granulation tissue. Because of the relative lack of progress in healing over the last several weeks, swab cultures have been obtained, for both aerobic and anaerobic bacterial growth. Wound Measurements and Assessment WC - Nurse 1 - General Ulcer Measurement Start: 10/07/20 07:51 Freq: Status: Active Protocol: Activity Type Activity Date Activity User E-Sign Co-Sign Detail Recorded Client Recorded Date Recorded By Document 10/07/20 07:51 PL [id number] 10/07/20 07:56 PL 10/07/20 07:51 Wound Center Nurse 1 [Ulcer Assessment] #1 Lateral LLE -Combined with other wound No -Current Size (cm) - Length 1.5 -Current Size (cm) - Width 1.0 -Current Size (cm) - Depth 0.2 -Total Square Cm 1.50 -Photo Taken No -Tunneling No -Undermining/Tunneling No -Circular Undermining No -Exudate Amt Medium -Exudate Type Serosanguineous -Granulation Amt Medium (34-66%) -Granulation Quality [place],Red -Necrosis Amt Medium (34-66%) -Necrotic Tissue Type Adherent Slough -Texture (Lois-wound Skin Appearance) No Abnormality -Moisture (Lois-wound Skin Appearance No Abnormality ) -Color (Lois-wound Skin Appearance) No Abnormality -Temperature (Lois-wound Skin No Abnormality Appearance) (Pt Warm) -Ulcer Cleansing Rinsed/ Irrigated with Saline -Foul Odor after Cleansing No -Anesthetic Used 5% Lidocaine Gel Musculoskeletal: No Muscle Wasting Neurological: Cranial nerves II-XII grossly intact, Neuro grossly intact Psych/Mental Status: Normal Affect, Appropriate, Alert and oriented to time, place, person, mood and affect Debridement Note Laterality: Left - Lateral calf Type of Debridement: Excisional debridement Anesthesia Used: 5% Lidocaine Gel Depth: Down to and including healthy tissue, in the subcutaneous layer Percentage of wound debrided: 100 Instrument Used: 5mm curette Tissue Removed: Bioburden Severity: Fat Layer Exposed Amount of bleeding with debridement: Mild Bleeding Controlled with: Compression and gauze Patient tolerated procedure well Swab cultures have been obtained for aerobic and anaerobic bacterial growth. Assessment/Plan Assessment: This is a 60-year-old male who presented elsewhere initially with a large abscess on the left lateral calf. He was hospitalized for approximately 5 days, and underwent incision and drainage of the abscess. He presented here for definitive management. At the time of his initial presentation, the patient was noted to have a large amount of frankly necrotic and nonviable tissue present at the site of his former abscess, with some tunneling as well. The patient also suffers from longstanding swelling and edema of his lower extremities, and is known to have a history of superficial thrombophlebitis in the left lower extremity previously. Physical findings suggest longstanding chronic venous insufficiency. The patient has undergone a battery of diagnostic testing. An x-ray of the left tibia/fibula shows soft tissue changes, but no other abnormalities. Laboratory results from 03/20/2020 are as follows: White blood count 6.0, hemoglobin 14.4, hematocrit 44.7, platelets 247,000, sodium 137, potassium 4.1, chloride 104, BUN 20, creatinine 0.76, glucose 127, calcium 9.1, total bilirubin 0.60, AST 14, ALT 31, alkaline phosphatase 57, total protein 7.6, albumin 4.1, prealbumin 29.2. Recently, a noninvasive lower extremity arterial study revealed no evidence of significant arterial occlusive disease in the lower extremities. A venous duplex examination revealed incompetence of the great saphenous veins bilaterally. At this juncture, the patient appears to be progressing well, though little change has been noted in his left lateral calf wound in the last several weeks. Previously, there had been progressive decrease in the size and depth of his wound. Undermining posteriorly is resolved. Plan: The patient has been advised to continue conservative treatment measures. These are to include leg elevation. He is to continue sleeping on a flat mattress at night. His legs are to be elevated to heart level, or higher, even during daytime hours. This is to be implemented as much as possible. The patient has been advised to refrain from prolonged, idle standing and sitting. Activity has been encouraged. Implementation of the calf and foot muscle pumps has been explained. Weight loss is also been recommended. The patient has obtained graduated compression stockings of 20 to 30 mmHg compression, and has been wearing daily. The nonviable and necrotic tissue has been removed from the patient's wound by means of excisional and enzymatic debridements. We initiated the use of a Snap VAC, but have been using Promogran topically on a daily basis recently. The patient has continued to do well, though the progress of healing appears to have recently slowed. We are to continue with the use of Promogran for now. Approval for the use of EpiFix was sought, but denied by the patient's insurance company. The patient is to return in 1 week for reassessment. Once again, we have reinforced the need for compression, elevation, avoidance of p rolonged idle sitting, etc. We will continue to monitor the patient's wound serially, and to assess the patient's progress. We will also await the results of his wound cultures, which have been obtained today. Patient smokes rarely, but has been advised to refrain from his smoking habit. Influenza vaccine was not administered today. Patient stands 5 feet 10 inches tall. He weighs 246 pounds. His BMI is 35.3, which places him in a class II obesity category. Weight loss has been recommended, and collaboration with the patient's primary care physician has been advised. Total time: 25 minutes.
--- NOTE | 2020-10-10 12:07 | WC ---
Prescription called in to [facility] for Augmentin 875 1 tab po BID x !0 days Dispense 20 no refills.
[2020-10-14 07:56] VITALS: BP 140/73; PULSE 89; TEMP 36.1; BMI 35.3
--- NOTE | 2020-10-14 08:17 | HP.PCM_ITS ---
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 Code(s): I87.093 - Postthrombotic syndrome with other complications of bilateral lower extremity (7) Hyperpigmentation of skin Status: Chronic Code(s): L81.9 - Disorder of pigmentation, unspecified (8) Lipodermatosclerosis of both lower extremities Status: Chronic Code(s): I83.11 - Varicose veins of right lower extremity with inflammation; I83.12 - Varicose veins of left lower extremity with inflammation (9) Diallo phlebectatica Status: Chronic (10) Wound of left leg Status: Chronic Qualifiers: Code(s): S81.802A - Unspecified open wound, left lower leg, initial encounter (11) Necrosis Status: Chronic Code(s): I96 - Gangrene, not elsewhere classified (12) Obesity (BMI 35.0-39.9 without comorbidity) Status: Chronic Code(s): E66.9 - Obesity, unspecified (13) Personal history of thrombophlebitis Status: Chronic Code(s): Z86.72 - Personal history of thrombophlebitis History of Present Illness Date of Service: 10/14/20 Chief Complaint: Open wound of the left lateral calf, status-post incision and drainage of abscess History of Wound: This is a 60-year-old male who was admitted to [facility] [place] approximately 1 month prior to presentation with a large abscess on the left lateral calf. On February 11, 2020, he underwent incision and drainage of the abscess. He spent approximately 5 days in the hospital, and was subsequently discharged on Augmentin. The patient claims to sleep on a flat mattress at night. However, he suffers from chronic swelling and edema in both lower extremities. Additionally, he has a history of superficial thrombophlebitis in the left lower extremity, and has undergone a prior left lower extremity vein stripping procedure in the remote past. Patient has developed chronic skin changes in his lower extremities, which include hyperpigmentation and lipodermatosclerosis in the gaiter areas bilaterally. Patient is also noted to have diallo phlebectatica at ankle level bilaterally. The patient claims to be relatively active. Management the time of presentation included the use of a wet-to-dry gauze packing daily. It is noted that patient underwent a venous duplex examination during his hospitalization recently, that was negative for any evidence of thrombosis, but indicated valvular incompetence of the deep and superficial venous systems bilaterally. 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 Home Medications: Ambulatory Orders Medication Instructions Recorded Augmentin 875-125 Tablet 875 mg PO BID 03/18/20 Rosuvastatin Calcium [Crestor] 20 mg PO DAILY 03/18/20 - Family History Paternal - - Patient's father at the age of 72 with a history of cerebrovascular accident and venous disease. Patient's mother at the age of 90, of old age. Smoking Status: Light Smoker (<10/day) Tobacco Use: Cigarettes Review of Systems Constitutional: Denies: Chills, Fever, Weight Change Eyes: Denies: Pain, Vision Change HEENT: Denies: Difficulty Hearing, Difficulty Swallowing, Sinus Congestion Cardiovascular: Denies: Chest Pain, Palpitations Respiratory: Denies: Cough, Shortness of Breath Gastrointestinal: Denies: Diarrhea, Nausea, Vomiting Genitourinary: Denies: Dysuria, Hematuria Endocrine: Denies: Heat/ Cold Intolerance, Polydipsia, Polyuria Hematologic/ Lymphatic: Denies: Easy Bruising, Easy Bleeding - Physical Exam Vital Signs Temp Pulse Resp BP 96.9 F L 89 18 140/73 H 10/14/20 07:56 10/14/20 07:56 10/07/20 07:51 10/14/20 07:56 General: Alert, Oriented x3, Cooperative, No apparent distress, Well developed, Well nourished HEENT: Atraumatic, PERRLA, EOMI, Normocephalic Oral: Moist Mucosa Neck: No JVD Lungs: Normal air movement Abdomen: Non-Distended Extremities: No clubbing, No cyanosis, No edema, No Calf Tenderness, - - Mild hyperpigmentation and lipodermatosclerosis are noted in the distal left lower extremity, involving the gaiter area. Numerous large varicosities are also noted. Addt'l Wound Findings: The wound on the left lateral calf persists. It is generally pink and healthy in appearance. There is a moderate amount of bioburden. Dimensions are documented elsewhere. Wound Measurements and Assessment WC - Nurse 1 - General Ulcer Measurement Start: 10/07/20 07:51 Freq: Status: Active Protocol: Activity Type Activity Date Activity User E-Sign Co-Sign Detail Recorded Client Recorded Date Recorded By Document 10/14/20 07:56 MAYTE [id number] 10/14/20 08:01 MAYTE 10/14/20 07:56 Wound Center Nurse 1 [Ulcer Assessment] #1 Lateral LLE -Current Size (cm) - Length 2 -Current Size (cm) - Width 0.7 -Current Size (cm) - Depth 0.2 -Total Square Cm 1.4 -Exudate Amt Small -Exudate Type Serosanguineous -Wound Margin Distinct, Outline Attached -Granulation Amt Medium (34-66%) -Granulation Quality Red -Necrosis Amt None Present (0 %) -Texture (Lois-wound Skin Appearance) Assessed, Scarring -Moisture (Lois-wound Skin Appearance No Abnormality, ) Assessed -Color (Lois-wound Skin Appearance) No Abnormality, Assessed -Temperature (Lois-wound Skin No Abnormality Appearance) (Pt Warm) -Tenderness on Palpation (Lois-wound No Skin Appearance) -Ulcer Cleansing Rinsed/ Irrigated with Saline -Foul Odor after Cleansing No -Anesthetic Used 4% Lidocaine Solution WC - Nurse 2 - General Ulcer CM Notes Start: 10/07/20 07:51 Freq: Status: Active Protocol: Activity Type Activity Date Activity User E-Sign Co-Sign Detail Recorded Client Recorded Date Recorded By Document 10/14/20 08:12 MW [id number] 10/14/20 08:15 MW 10/14/20 08:12 Wound Center Nurse 2 [Procedure/Treatment] -Time 08:12 -Correct Patient Yes -Correct Side, Site, Position Yes -Correct Procedure Yes -Procedure Performed Yes -Type of Procedure Debridement -Clinical Debridement Subcutaneous -Tissue Removed Subcutaneous -Post Debridement (cm) - Length 2.0 -Post Debridement (cm) - Width 2.0 -Post Debridement (cm) - Depth 0.2 -Total Square (Post) (cm) 4.00 -Area of Debridement (cm) - Length 2.0 -Area of Debridement (cm) - Width 2.0 -Total Square (Area) (cm) 4.00 -Tunneling No -Undermining/Tunneling No -Circular Undermining No -Wound/Ulcer Outcome Not Healed -Ulcer Cleansing Rinsed/ Irrigated with Saline -Foul Odor after Cleansing No -Bioengineered Tissue No -Bleeding Controlled with Pressure -Offloading No -Debridement - Subq, 1st 20sq cm Yes [See Physician Procedure note for Specifics] Pain Scale: 0-10 Numeric [Pain] -Is Patient Pain Free? Yes Musculoskeletal: No Muscle Wasting Neurological: Cranial nerves II-XII grossly intact, Neuro grossly intact Psych/Mental Status: Normal Affect, Appropriate, Alert and oriented to time, place, person, mood and affect Debridement Note Post-Debridement Measurements/Treatment WC - Nurse 2 - General Ulcer CM Notes Start: 10/07/20 07:51 Freq: Status: Active Protocol: Activity Type Activity Date Activity User E-Sign Co-Sign Detail Recorded Client Recorded Date Recorded By Document 10/07/20 09:08 PL [id number] 10/07/20 09:08 PL Document 10/14/20 08:12 MW [id number] 10/14/20 08:15 MW 10/07/20 10/14/20 09:08 08:12 Wound Center Nurse 2 #1 Lateral LLE -Time 08:10 08:12 -Correct Patient Yes Yes -Correct Side, Site, Position Yes Yes -Correct Procedure Yes Yes -Procedure Performed Yes Yes -Type of Procedure Debridement Debridement -Clinical Debridement Subcutaneous Subcutaneous -Tissue Removed Subcutaneous Subcutaneous -Post Debridement (cm) - Length 1.5 2.0 -Post Debridement (cm) - Width 1 2.0 -Post Debridement (cm) - Depth 0.2 0.2 -Total Square (Post) (cm) 1.5 4.00 -Area of Debridement (cm) - Length 1.5 2.0 -Area of Debridement (cm) - Width 1 2.0 -Total Square (Area) (cm) 1.5 4.00 -Tunneling No No -Undermining/Tunneling No No -Circular Undermining No No -Wound/Ulcer Outcome Not Healed Not Healed -Ulcer Cleansing Rinsed/ Rinsed/ Irrigated with Irrigated with Saline Saline -Foul Odor after Cleansing No No -Bioengineered Tissue No No -Bleeding Controlled with Pressure -Offloading No -Debridement - Subq, 1st 20sq cm Yes Yes Pain Scale: 0-10 Numeric Is Patient Pain Free? Yes Yes - Nurse 3 - General Ulcer D/C NN Start: 10/07/20 07:51 Freq: Status: Active Protocol: Activity Type Activity Date Activity User E-Sign Co-Sign Detail Recorded Client Recorded Date Recorded By Document 10/07/20 08:22 [facility] [id number] 10/07/20 08:23 [facility] 10/07/20 08:22 Wound Care Nurse 3 #1 Lateral LLE -Ulcer Cleansing Rinsed/ Irrigated with Saline -Foul Odor after Cleansing No -Primary Dressing Applied Other -Other Dressing promogran -Primary Dressing Covered/Secured with Dry Gauze, Secured with Tape Left -Other pts own stocking applied Treatment Response Procedure Tolerated Well Pain Scale: 0-10 Numeric Is Patient Pain Free? Yes - Visit Discharge Discharge Condition Stable Ambulatory Status Ambulatory Transportation Private Auto Laterality: Left - Lateral calf Type of Debridement: Excisional debridement Anesthesia Used: 5% Lidocaine Gel Depth: Down to and including healthy tissue, in the subcutaneous layer Percentage of wound debrided: 100 Instrument Used: 5mm curette Tissue Removed: Bioburden Severity: Fat Layer Exposed Amount of bleeding with debridement: Mild Bleeding Controlled with: Compression and gauze Patient tolerated procedure well Assessment/Plan Active Problems Leg swelling (Chronic) Leg edema (Chronic) Abscess of left leg (Chronic) Surgical wound present (Chronic) Chronic venous insufficiency (Chronic) 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 He was hospitalized for approximately 5 days, and underwent incision and drainage of the abscess. He presented here for definitive management. At the time of his initial presentation, the patient was noted to have a large amount of frankly necrotic and nonviable tissue present at the site of his former abscess, with some tunneling as well. The patient also suffers from longstanding swelling and edema of his lower extremities, and is known to have a history of superficial thrombophlebitis in the left lower extremity previously. Physical findings suggest longstanding chronic venous insufficiency. The patient has undergone a battery of diagnostic testing. An x-ray of the left tibia/fibula shows soft tissue changes, but no other abnormalities. Laboratory results from 03/20/2020 are as follows: White blood count 6.0, hemoglobin 14.4, hematocrit 44.7, platelets 247,000, sodium 137, potassium 4.1, chloride 104, BUN 20, creatinine 0.76, glucose 127, calcium 9.1, total bilirubin 0.60, AST 14, ALT 31, alkaline phosphatase 57, total protein 7.6, albumin 4.1, prealbumin 29.2. Recently, a noninvasive lower extremity arterial study revealed no evidence of significant arterial occlusive disease in the lower extremities. A venous duplex examination revealed incompetence of the great saphenous veins bilaterally. At this juncture, the patient appears to be progressing well, though little change has been noted in his left lateral calf wound in the last several weeks. Previously, there had been progressive decrease in the size and depth of his wound. Undermining posteriorly is resolved. Wound cultures obtained last week were positive for Staph aureus and strep species. Patient has been placed on Augmentin 875 mg p.o. twice daily for a total of 10 days, and he is currently in the midst of this regimen. Plan: The patient has been advised to continue conservative treatment measures. These are to include leg elevation. He is to continue sleeping on a flat mattress at night. His legs are to be elevated to heart level, or higher, even during daytime hours. This is to be implemented as much as possible. The patient has been advised to refrain from prolonged, idle standing and sitting. Activity has been encouraged. Implementation of the calf and foot muscle pumps has been explained. Weight loss is also been recommended. The patient has obtained graduated compression stockings of 20 to 30 mmHg compression, and has been wearing daily. The nonviable and necrotic tissue has been removed from the patient's wound by means of excisional and enzymatic debridements. We initiated the use of a Snap VAC, but have been using Promogran topically on a daily basis recently. The patient has continued to do well, though the progress of healing appears to have recently slowed. We are to continue with the use of Promogran for now. Approval for the use of EpiFix was sought, but denied by the patient's insurance company. The patient is to return in 1 week for reassessment. Once again, we have reinforced the need for compression, elevation, avoidance of prolonged idle sitting, etc. We will continue to monitor the patient's wound serially, and to assess the patient's progress. The patient's wound cultures were positive for Staph aureus and strep species, and the patient is now taking Augmentin 875 mg p.o. twice daily for a total of 10 days. Patient smokes rarely, but has been advised to refrain from his smoking habit. Influenza vaccine was not administered today. Patient stands 5 feet 10 inches tall. He weighs 246 pounds. His BMI is 35.3, which places him in a class II obesity category. Weight loss has been recommended, and collaboration with the patient's primary care physician has been advised. Total time: 25 minutes.
[2020-10-21 07:52] VITALS: BP 137/72; PULSE 80; TEMP 36.3; BMI 35.3
--- NOTE | 2020-10-21 08:17 | PCM.WC.HP ---
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 Code(s): I87.093 - Postthrombotic syndrome with other complications of bilateral lower extremity (7) Hyperpigmentation of skin Status: Chronic Code(s): L81.9 - Disorder of pigmentation, unspecified (8) Lipodermatosclerosis of both lower extremities Status: Chronic Code(s): I83.11 - Varicose veins of right lower extremity with inflammation; I83.12 - Varicose veins of left lower extremity with inflammation (9) Diallo phlebectatica Status: Chronic (10) Wound of left leg Status: Chronic Qualifiers: Code(s): S81.802A - Unspecified open wound, left lower leg, initial encounter (11) Necrosis Status: Chronic Code(s): I96 - Gangrene, not elsewhere classified (12) Obesity (BMI 35.0-39.9 without comorbidity) Status: Chronic Code(s): E66.9 - Obesity, unspecified (13) Personal history of thrombophlebitis Status: Chronic Code(s): Z86.72 - Personal history of thrombophlebitis History of Present Illness Date of Service: 10/21/20 Chief Complaint: Open wound of the left lateral calf, status-post incision and drainage of abscess History of Wound: This is a 60-year-old male who was admitted to [facility] approximately 1 month prior to presentation with a large abscess on the left lateral calf. On February 11, 2020, he underwent incision and drainage of the abscess. He spent approximately 5 days in the hospital, and was subsequently discharged on Augmentin. The patient claims to sleep on a flat mattress at night. However, he suffers from chronic swelling and edema in both lower extremities. Additionally, he has a history of superficial thrombophlebitis in the left lower extremity, and has undergone a prior left lower extremity vein stripping procedure in the remote past. Patient has developed chronic skin changes in his lower extremities, which include hyperpigmentation and lipodermatosclerosis in the gaiter areas bilaterally. Patient is also noted to have diallo phlebectatica at ankle level bilaterally. The patient claims to be relatively active. Management the time of presentation included the use of a wet-to-dry gauze packing daily. It is noted that patient underwent a venous duplex examination during his hospitalization recently, that was negative for any evidence of thrombosis, but indicated valvular incompetence of the deep and superficial venous systems bilaterally. 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 Home Medications: Ambulatory Orders Medication Instructions Recorded Augmentin 875-125 Tablet 875 mg PO BID 03/18/20 Rosuvastatin Calcium [Crestor] 20 mg PO DAILY 03/18/20 - Family History Paternal - - Patient's father at the age of 72 with a history of cerebrovascular accident and venous disease. Patient's mother at the age of 90, of old age. Smoking Status: Light Smoker (<10/day) Tobacco Use: Cigarettes Review of Systems Constitutional: Denies: Chills, Fever, Weight Change Eyes: Denies: Pain, Vision Change HEENT: Denies: Difficulty Hearing, Difficulty Swallowing, Sinus Congestion Cardiovascular: Denies: Chest Pain, Palpitations Respiratory: Denies: Cough, Shortness of Breath Gastrointestinal: Denies: Diarrhea, Nausea, Vomiting Genitourinary: Denies: Dysuria, Hematuria Endocrine: Denies: Heat/ Cold Intolerance, Polydipsia, Polyuria Hematologic/ Lymphatic: Denies: Easy Bruising, Easy Bleeding - Physical Exam Vital Signs Temp Pulse Resp BP 97.3 F L 80 18 137/72 H 10/21/20 07:52 10/21/20 07:52 10/07/20 07:51 10/21/20 07:52 General: Alert, Oriented x3, Cooperative, No apparent distress, Well developed, Well nourished HEENT: Atraumatic, PERRLA, EOMI, Normocephalic Oral: Moist Mucosa Neck: No JVD Lungs: Normal air movement Abdomen: Non-Distended Extremities: No clubbing, No cyanosis, No edema, No Calf Tenderness, - - Chronic skin changes are noted in the left lower extremity, namely hyperpigmentation and lipodermatosclerosis in the gaiter area. There are multiple large varicosities noted. Addt'l Wound Findings: The ulceration on the left lateral calf persists. Dimensions are documented elsewhere. There is no sign of infection or cellulitis. There is a moderate amount of bioburden. The base of the ulceration is generally pink and healthy in appearance. However, there has been little change in the size of this ulceration in recent weeks. Skin: No rashes Wound Measurements and Assessment WC - Nurse 1 - General Ulcer Measurement Start: 10/07/20 07:51 Freq: Status: Active Protocol: Activity Type Activity Date Activity User E-Sign Co-Sign Detail Recorded Client Recorded Date Recorded By Document 10/21/20 07:52 MAYTE [id number] 10/21/20 07:54 MAYTE 10/21/20 07:52 Wound Center Nurse 1 [Ulcer Assessment] #1 Lateral LLE -Current Size (cm) - Length 1.8 -Current Size (cm) - Width 1.9 -Current Size (cm) - Depth 0.2 -Total Square Cm 3.42 -Exudate Amt Small -Exudate Type Serosanguineous -Wound Margin Distinct, Outline Attached -Granulation Amt Medium (34-66%) -Granulation Quality Red -Necrosis Amt Medium (34-66%) -Necrotic Tissue Type Adherent Slough -Texture (Lois-wound Skin Appearance) Assessed, Scarring -Moisture (Lois-wound Skin Appearance No Abnormality, ) Assessed -Color (Lois-wound Skin Appearance) Assessed, Hemosiderin Staining -Temperature (Lois-wound Skin No Abnormality Appearance) (Pt Warm) -Tenderness on Palpation (Lois-wound No Skin Appearance) -Ulcer Cleansing Rinsed/ Irrigated with Saline -Foul Odor after Cleansing No -Anesthetic Used 4% Lidocaine Solution [Edema Assessment] -Left Calf (cm) 44.3 -Left Ankle (cm) 24.7 Musculoskeletal: No Muscle Wasting Neurological: Cranial nerves II-XII grossly intact, Neuro grossly intact Psych/Mental Status: Normal Affect, Appropriate, Alert and oriented to time, place, person, mood and affect Debridement Note Post-Debridement Measurements/Treatment WC - Nurse 2 - General Ulcer CM Notes Start: 10/07/20 07:51 Freq: Status: Active Protocol: Activity Type Activity Date Activity User E-Sign Co-Sign Detail Recorded Client Recorded Date Recorded By Document 10/07/20 09:08 PL [id number] 10/07/20 09:08 PL Document 10/14/20 08:12 MW [id number] 10/14/20 08:15 MW 10/07/20 10/14/20 09:08 08:12 Wound Center Nurse 2 #1 Lateral LLE -Time 08:10 08:12 -Correct Patient Yes Yes -Correct Side, Site, Position Yes Yes -Correct Procedure Yes Yes -Procedure Performed Yes Yes -Type of Procedure Debridement Debridement -Clinical Debridement Subcutaneous Subcutaneous -Tissue Removed Subcutaneous Subcutaneous -Post Debridement (cm) - Length 1.5 2.0 -Post Debridement (cm) - Width 1 2.0 -Post Debridement (cm) - Depth 0.2 0.2 -Total Square (Post) (cm) 1.5 4.00 -Area of Debridement (cm) - Length 1.5 2.0 -Area of Debridement (cm) - Width 1 2.0 -Total Square (Area) (cm) 1.5 4.00 -Tunneling No No -Undermining/Tunneling No No -Circular Undermining No No -Wound/Ulcer Outcome Not Healed Not Healed -Ulcer Cleansing Rinsed/ Rinsed/ Irrigated with Irrigated with Saline Saline -Foul Odor after Cleansing No No -Bioengineered Tissue No No -Bleeding Controlled with Pressure -Offloading No -Debridement - Subq, 1st 20sq cm Yes Yes Pain Scale: 0-10 Numeric Is Patient Pain Free? Yes Yes KISHA - Nurse 3 - General Ulcer D/C NN Start: 10/07/20 07:51 Freq: Status: Active Protocol: Activity Type Activity Date Activity User E-Sign Co-Sign Detail Recorded Client Recorded Date Recorded By Document 10/07/20 08:22 [facility] [id number] 10/07/20 08:23 [facility] Document 10/14/20 08:20 MW [id number] 10/14/20 08:21 MW 10/07/20 10/14/20 08:22 08:20 Wound Care Nurse 3 #1 Lateral LLE -Ulcer Cleansing Rinsed/ Rinsed/ Irrigated with Irrigated with Saline Saline -Foul Odor after Cleansing No No -Negative Pressure Wound Therapy N/A -Primary Dressing Applied Other -Other Dressing promogran PROMOGRAN -Primary Dressing Covered/Secured with Dry Gauze, Dry Gauze, Secured with Secured with Tape Tape Left -Other pts own stocking applied Treatment Response Procedure Procedure Tolerated Well Tolerated Well Pain Scale: 0-10 Numeric Is Patient Pain Free? Yes Yes Teaching: Wound Center Dressing Your Wound -Person Taught Patient -Teaching Method Discussion, Demonstration -Response to teaching Verbalize understanding WC - Visit Discharge Discharge Condition Stable Stable Ambulatory Status Ambulatory Ambulatory Transportation Private Auto Private Auto Accompanied by SELF Medication Reconcilliation completed & No provided to patient/care provider Clinical Summary of Care Provided Yes Laterality: Left - Lateral calf Type of Debridement: Excisional debridement Anesthesia Used: 5% Lidocaine Gel Depth: Down to and including healthy tissue, in the subcutaneous layer Percentage of wound debrided: 100 Instrument Used: 5mm curette Tissue Removed: Bioburden Severity: Fat Layer Exposed Amount of bleeding with debridement: Mild Bleeding Controlled with: Compression and gauze Patient tolerated procedure well Assessment/Plan Active Problems Leg swelling (Chronic) Leg edema (Chronic) Abscess of left leg (Chronic) Surgical wound present (Chronic) Chronic venous insufficiency (Chronic) 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 He was hospitalized for approximately 5 days, and underwent incision and drainage of the abscess. He presented here for definitive management. At the time of his initial presentation, the patient was noted to have a large amount of frankly necrotic and nonviable tissue present at the site of his former abscess, with some tunneling as well. The patient also suffers from longstanding swelling and edema of his lower extremities, and is known to have a history of superficial thrombophlebitis in the left lower extremity previously. Physical findings suggest longstanding chronic venous insufficiency. The patient has undergone a battery of diagnostic testing. An x-ray of the left tibia/fibula shows soft tissue changes, but no other abnormalities. Laboratory results from 03/20/2020 are as follows: White blood count 6.0, hemoglobin 14.4, hematocrit 44.7, platelets 247,000, sodium 137, potassium 4.1, chloride 104, BUN 20, creatinine 0.76, glucose 127, calcium 9.1, total bilirubin 0.60, AST 14, ALT 31, alkaline phosphatase 57, total protein 7.6, albumin 4.1, prealbumin 29.2. Recently, a noninvasive lower extremity arterial study revealed no evidence of significant arterial occlusive disease in the lower extremities. A venous duplex examination revealed incompetence of the great saphenous veins bilaterally. At this juncture, the patient appears to be progressing well, though little change has been noted in his left lateral calf wound in the last several weeks. Previously, there had been progressive decrease in the size and depth of his wound. Undermining posteriorly is resolved. Wound cultures obtained last week were positive for Staph aureus and strep species. Patient has been placed on Augmentin 875 mg p.o. twice daily for a total of 10 days, and he is currently in the midst of this regimen. Plan: The patient has been advised to continue conservative treatment measures. These are to include leg elevation. He is to continue sleeping on a flat mattress at night. His legs are to be elevated to heart level, or higher, even during daytime hours. This is to be implemented as much as possible. The patient has been advised to refrain from prolonged, idle standing and sitting. Activity has been encouraged. Implementation of the calf and foot muscle pumps has been explained. Weight loss is also been recommended. The patient has obtained graduated compression stockings of 20 to 30 mmHg compression, and has been wearing daily. The nonviable and necrotic tissue has been removed from the patient's wound by means of excisional and enzymatic debridements. We initiated the use of a Snap VAC, but have been using Promogran topically on a daily basis recently. The patient has continued to do well, though the progress of healing appears to have recently slowed. We are to transition from the use of Promogran to the application of MediHoney topically on a daily basis. Approval for the use of EpiFix was sought, but denied by the patient's insurance company. The patient is to return in 1 week for reassessment. Once again, we have reinforced the need for compression, elevation, avoidance of prolonged idle sitting, etc. We will continue to monitor the patient's wound serially, and to assess the patient's progress. The patient's wound cultures were positive for Staph aureus and strep species, and the patient has now completed a course of Augmentin 875 mg p.o. twice daily for a total of 10 days. Patient smokes rarely, but has been advised to refrain from his smoking habit. Influenza vaccine was not administered today. Patient stands 5 feet 10 inches tall. He weighs 246 pounds. His BMI is 35.3, which places him in a class II obesity category. Weight loss has been recommended, and collaboration with the patient's primary care physician has been advised. Total time: 22 minutes.
== END 2020-11-02 23:59 ==
LOC: WC 07:45
PROVIDERS: PCP Family Medicine; Referring Provider Surgery; Visit Provider Surgery
DX: L02.416 Cutaneous abscess of left lower limb (principal); R60.0 Localized edema; M79.89 Other specified soft tissue disorders; I83.11 Varicose veins of right lower extremity with inflammation; I83.12 Varicose veins of left lower extremity with inflammation; E66.9 Obesity, unspecified; Z68.35 Body mass index [BMI] 35.0-35.9, adult; Z86.72 Personal history of thrombophlebitis; I96 Gangrene, not elsewhere classified; F17.210 Nicotine dependence, cigarettes, uncomplicated
CPT/HCPCS: 11042; 87070; 87075; 87077; 87186; 87205

== ENCOUNTER 2020-11-28 07:45 | Outpatient (RCR) | payer OTHER, SELFPAY ==
[2020-11-03 00:20] VITALS: BP 137/72; PULSE 80; RESP 18; TEMP 36.3
[2020-11-04 07:46] VITALS: BP 138/71; PULSE 88; RESP 18; TEMP 36.4; BMI 35.3
--- NOTE | 2020-11-04 08:23 | HP.PCM_ITS ---
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 Code(s): I87.093 - Postthrombotic syndrome with other complications of bilateral lower extremity (7) Hyperpigmentation of skin Status: Chronic Code(s): L81.9 - Disorder of pigmentation, unspecified (8) Lipodermatosclerosis of both lower extremities Status: Chronic Code(s): I83.11 - Varicose veins of right lower extremity with inflammation; I83.12 - Varicose veins of left lower extremity with inflammation (9) Diallo phlebectatica Status: Chronic (10) Wound of left leg Status: Chronic Qualifiers: Code(s): S81.802A - Unspecified open wound, left lower leg, initial encounter (11) Necrosis Status: Chronic Code(s): I96 - Gangrene, not elsewhere classified (12) Obesity (BMI 35.0-39.9 without comorbidity) Status: Chronic Code(s): E66.9 - Obesity, unspecified (13) Personal history of thrombophlebitis Status: Chronic Code(s): Z86.72 - Personal history of thrombophlebitis History of Present Illness Date of Service: 11/04/20 Chief Complaint: Open wound of the left lateral calf, status-post incision and drainage of abscess History of Wound: This is a 60-year-old male who was admitted to [facility] approximately 1 month prior to presentation with a large abscess on the left lateral calf. On February 11, 2020, he underwent incision and drainage of the abscess. He spent approximately 5 days in the hospital, and was subsequently discharged on Augmentin. The patient claims to sleep on a flat mattress at night. However, he suffers from chronic swelling and edema in both lower extremities. Additionally, he has a history of superficial thrombophlebitis in the left lower extremity, and has undergone a prior left lower extremity vein stripping procedure in the remote past. Patient has developed chronic skin changes in his lower extremities, which include hyperpigmentation and lipodermatosclerosis in the gaiter areas bilaterally. Patient is also noted to have diallo phlebectatica at ankle level bilaterally. The patient claims to be relatively active. Management the time of presentation included the use of a wet-to-dry gauze packing daily. It is noted that patient underwent a venous duplex examination during his hospitalization recently, that was negative for any evidence of thrombosis, but indicated valvular incompetence of the deep and superficial venous systems bilaterally. 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 Home Medications: Ambulatory Orders Medication Instructions Recorded Augmentin 875-125 Tablet 875 mg PO BID 03/18/20 Rosuvastatin Calcium [Crestor] 20 mg PO DAILY 03/18/20 - Family History Paternal - - Patient's father at the age of 72 with a history of cerebrovascular accident and venous disease. Patient's mother at the age of 90, of old age. Smoking Status: Light Smoker (<10/day) Tobacco Use: Cigarettes Review of Systems Constitutional: Denies: Chills, Fever, Weight Change Eyes: Denies: Pain, Vision Change HEENT: Denies: Difficulty Hearing, Difficulty Swallowing, Sinus Congestion Cardiovascular: Denies: Chest Pain, Palpitations Respiratory: Denies: Cough, Shortness of Breath Gastrointestinal: Denies: Diarrhea, Nausea, Vomiting Genitourinary: Denies: Dysuria, Hematuria Endocrine: Denies: Heat/ Cold Intolerance, Polydipsia, Polyuria Hematologic/ Lymphatic: Denies: Easy Bruising, Easy Bleeding - Physical Exam Vital Signs Temp Pulse Resp BP 97.6 F L 88 18 138/71 H 11/04/20 07:46 11/04/20 07:46 11/04/20 07:46 11/04/20 07:46 General: Alert, Oriented x3, Cooperative, No apparent distress, Well developed, Well nourished HEENT: Atraumatic, PERRLA, EOMI, Normocephalic Oral: Moist Mucosa Neck: No JVD Lungs: Normal air movement Abdomen: Non-Distended Extremities: No clubbing, No cyanosis, No edema, No Calf Tenderness, - - Chronic skin changes persist in the patient's left lower extremity. These include hyp erpigmentation and lipodermatosclerosis in the gaiter area. There is no significant swelling. There are multiple scattered large varicosities. Addt'l Wound Findings: The wound persists on the left lateral calf. There is a moderate amount of bioburden. There is no sign of infection or cellulitis. Dimensions are documented elsewhere. The base of the wound is generally pink and healthy in appearance. Skin: No rashes Wound Measurements and Assessment WC - Nurse 1 - General Ulcer Measurement Start: 11/04/20 07:46 Freq: Status: Active Protocol: Activity Type Activity Date Activity User E-Sign Co-Sign Detail Recorded Client Recorded Date Recorded By Document 11/04/20 07:46 PL [id number] 11/04/20 07:50 PL 11/04/20 07:46 Wound Center Nurse 1 [Ulcer Assessment] #1 Lateral LLE -Combined with other wound No -Current Size (cm) - Length 2.5 -Current Size (cm) - Width 2.5 -Current Size (cm) - Depth 0.1 -Total Square Cm 6.25 -Photo Taken No -Epithelialization None Present -Tunneling No -Undermining/Tunneling No -Circular Undermining No -Exudate Amt Medium -Exudate Type Serosanguineous -Granulation Amt Medium (34-66%) -Granulation Quality [place] -Slough/Fibrin No -Necrosis Amt Medium (34-66%) -Necrotic Tissue Type Adherent Slough -Texture (Lois-wound Skin Appearance) No Abnormality -Moisture (Lois-wound Skin Appearance No Abnormality ) -Color (Lois-wound Skin Appearance) No Abnormality -Temperature (Lois-wound Skin No Abnormality Appearance) (Pt Warm) -Ulcer Cleansing Rinsed/ Irrigated with Saline -Foul Odor after Cleansing No -Anesthetic Used 5% Lidocaine Gel Musculoskeletal: No Muscle Wasting Neurological: Cranial nerves II-XII grossly intact, Neuro grossly intact Psych/Mental Status: Normal Affect, Appropriate, Alert and oriented to time, place, person, mood and affect Debridement Note Laterality: Left - Lateral calf Type of Debridement: Excisional debridement Anesthesia Used: 5% Lidocaine Gel Depth: Down to and including healthy tissue, in the subcutaneous layer Percentage of wound debrided: 100 Instrument Used: 5mm curette Tissue Removed: Bioburden Severity: Fat Layer Exposed Amount of bleeding with debridement: Mild Bleeding Controlled with: Compression and gauze Patient tolerated procedure well Assessment/Plan Assessment: This is a 60-year-old male who presented elsewhere initially with a large abscess on the left lateral calf. He was hospitalized for approximately 5 days, and underwent incision and drainage of the abscess. He presented here for definitive management. At the time of his initial presentation, the patient was noted to have a large amount of frankly necrotic and nonviable tissue present at the site of his former abscess, with some tunneling as well. The patient also suffers from longstanding swelling and edema of his lower extremities, and is known to have a history of superficial thrombophlebitis in the left lower extremity previously. Physical findings suggest longstanding chronic venous insufficiency. The patient has undergone a battery of diagnostic testing. An x-ray of the left tibia/fibula shows soft tissue changes, but no other abnormalities. Laboratory results from 03/20/2020 are as follows: White blood count 6.0, hemoglobin 14.4, hematocrit 44.7, platelets 247,000, sodium 137, potassium 4.1, chloride 104, BUN 20, creatinine 0.76, glucose 127, calcium 9.1, total bilirubin 0.60, AST 14, ALT 31, alkaline phosphatase 57, total protein 7.6, albumin 4.1, prealbumin 29.2. Recently, a noninvasive lower extremity arterial study revealed no evidence of significant arterial occlusive disease in the lower extremities. A venous duplex examination revealed incompetence of the great saphenous veins bilaterally. At this juncture, the patient appears to be progressing well, though little change has been noted in his left lateral calf wound in the last several weeks. Previously, there had been progressive decrease in the size and depth of his wound. Undermining posteriorly is resolved. Wound cultures obtained last week were positive for Staph aureus and strep species. Patient was placed on Augmentin 875 mg p.o. twice daily for a total of 10 days, which has now been completed. Plan: The patient has been advised to continue conservative treatment measures. These are to include leg elevation. He is to continue sleeping on a flat mattress at night. His legs are to be elevated to heart level, or higher, even during daytime hours. This is to be implemented as much as possible. The patient has been advised to refrain from prolonged, idle standing and sitting. Activity has been encouraged. Implementation of the calf and foot muscle pumps has been explained. Weight loss is also been recommended. The patient has obtained graduated compression stockings of 20 to 30 mmHg compression, and has been wearing daily. The nonviable and necrotic tissue has been removed from the patient's wound by means of excisional and enzymatic debridements. We initiated the use of a Snap VAC, then transitioned to the use of Promogran. We are currently using MediHoney topically on a daily basis. Approval for the use of EpiFix and PuraPly was sought, but denied by the patient's insurance company. The patient is to return in 1 week for reassessment. Once again, we have reinforced the need for compression, elevation, avoidance of prolonged idle sitting, etc. We will continue to monitor the patient's wound serially, and to assess the patient's progress. The patient's wound cultures were positive for Staph aureus and strep species, and the patient has now completed a course of Augmentin 875 mg p.o. twice daily for a total of 10 days. We are to seek preauthorization for the use of TheraSkin. Patient smokes rarely, but has been advised to refrain from his smoking habit. Influenza vaccine was not administered today. Patient stands 5 feet 10 inches tall. He weighs 246 pounds. His BMI is 35.3, which places him in a class II obesity category. Weight loss has been recommended, and collaboration with the patient's primary care physician has been advised. Total time: 24 minutes.
[2020-11-25 07:44] VITALS: BP 148/70; PULSE 88; RESP 18; TEMP 36.4; BMI 35.3
--- NOTE | 2020-11-25 08:28 | HP.PCM_ITS ---
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 Code(s): I87.093 - Postthrombotic syndrome with other complications of bilateral lower extremity (7) Hyperpigmentation of skin Status: Chronic Code(s): L81.9 - Disorder of pigmentation, unspecified (8) Lipodermatosclerosis of both lower extremities Status: Chronic Code(s): I83.11 - Varicose veins of right lower extremity with inflammation; I83.12 - Varicose veins of left lower extremity with inflammation (9) Diallo phlebectatica Status: Chronic (10) Wound of left leg Status: Chronic Qualifiers: Code(s): S81.802A - Unspecified open wound, left lower leg, initial encounter (11) Necrosis Status: Chronic Code(s): I96 - Gangrene, not elsewhere classified (12) Obesity (BMI 35.0-39.9 without comorbidity) Status: Chronic Code(s): E66.9 - Obesity, unspecified (13) Personal history of thrombophlebitis Status: Chronic Code(s): Z86.72 - Personal history of thrombophlebitis History of Present Illness Date of Service: 11/25/20 Chief Complaint: Open wound of the left lateral calf, status-post incision and drainage of abscess History of Wound: This is a 60-year-old male who was admitted to [facility] approximately 1 month prior to presentation with a large abscess on the left lateral calf. On February 11, 2020, he underwent incision and drainage of the abscess. He spent approximately 5 days in the hospital, and was subsequently discharged on Augmentin. The patient claims to sleep on a flat mattress at night. However, he suffers from chronic swelling and edema in both lower extremities. Additionally, he has a history of superficial thrombophlebitis in the left lower extremity, and has undergone a prior left lower extremity vein stripping procedure in the remote past. Patient has developed chronic skin changes in his lower extremities, which include hyperpigmentation and lipodermatosclerosis in the gaiter areas bilaterally. Patient is also noted to have diallo phlebectatica at ankle level bilaterally. The patient claims to be relatively active. Management the time of presentation included the use of a wet-to-dry gauze packing daily. It is noted that patient underwent a venous duplex examination during his hospitalization recently, that was negative for any evidence of thrombosis, but indicated valvular incompetence of the deep and superficial venous systems bilaterally. 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 Home Medications: Ambulatory Orders Medication Instructions Recorded Augmentin 875-125 Tablet 875 mg PO BID 03/18/20 Rosuvastatin Calcium [Crestor] 20 mg PO DAILY 03/18/20 - Family History Paternal - - Patient's father at the age of 72 with a history of cerebrovascular accident and venous disease. Patient's mother at the age of 90, of old age. Smoking Status: Light Smoker (<10/day) Tobacco Use: Cigarettes Review of Systems Constitutional: Denies: Chills, Fever, Weight Change Eyes: Denies: Pain, Vision Change HEENT: Denies: Difficulty Hearing, Difficulty Swallowing, Sinus Congestion Cardiovascular: Denies: Chest Pain, Palpitations Respiratory: Denies: Cough, Shortness of Breath Gastrointestinal: Denies: Diarrhea, Nausea, Vomiting Genitourinary: Denies: Dysuria, Hematuria Endocrine: Denies: Heat/ Cold Intolerance, Polydipsia, Polyuria Hematologic/ Lymphatic: Denies: Easy Bruising, Easy Bleeding - Physical Exam Vital Signs Temp Pulse Resp BP 97.5 F L 88 18 148/70 H 11/25/20 07:44 11/25/20 07:44 11/25/20 07:44 11/25/20 07:44 General: Alert, Oriented x3, Cooperative, No apparent distress, Well developed, Well nourished HEENT: Atraumatic, PERRLA, EOMI, Normocephalic Oral: Moist Mucosa Neck: No JVD Lungs: Normal air movement Abdomen: Non-Distended Extremities: No clubbing, No cyanosis, No Calf Tenderness, - - Mild scaly dermatitis is noted in the left gaiter area. This is associated with hyperpigmentation. There is also slight swelling and edema. Multiple varicosities are noted in the distal left lower extremity, some of which are relatively large in size. Addt'l Wound Findings: The wound on the left distal lateral calf persists. It is relatively unchanged in size or appearance. Wound margins are not well beveled. There is a moderate amount of bioburden. There is no sign of infection or cellulitis. Dimensions are documented elsewhere. Skin: No rashes Wound Measurements and Assessment WC - Nurse 1 - General Ulcer Measurement Start: 11/04/20 07:46 Freq: Status: Active Protocol: Activity Type Activity Date Activity User E-Sign Co-Sign Detail Recorded Client Recorded Date Recorded By Document 11/25/20 07:44 PL [id number] 11/25/20 07:52 PL 11/25/20 07:44 Wound Center Nurse 1 [Ulcer Assessment] #1 Lateral LLE -Combined with other wound No -Current Size (cm) - Length 1.9 -Current Size (cm) - Width 1.9 -Current Size (cm) - Depth 0.2 -Total Square Cm 3.61 -Photo Taken No -Epithelialization None Present -Tunneling No -Undermining/Tunneling No -Circular Undermining No -Exudate Amt Medium -Exudate Type Serosanguineous -Granulation Amt Small (1-33%) -Granulation Quality [place] -Necrosis Amt Large (67-100%) -Necrotic Tissue Type Adherent Slough -Texture (Lois-wound Skin Appearance) No Abnormality -Moisture (Lois-wound Skin Appearance No Abnormality ) -Color (Lois-wound Skin Appearance) No Abnormality -Temperature (Lois-wound Skin No Abnormality Appearance) (Pt Warm) -Ulcer Cleansing Rinsed/ Irrigated with Saline -Foul Odor after Cleansing No -Anesthetic Used 5% Lidocaine Gel WC - Nurse 2 - General Ulcer CM Notes Start: 11/04/20 07:46 Freq: Status: Active Protocol: Activity Type Activity Date Activity User E-Sign Co-Sign Detail Recorded Client Recorded Date Recorded By Document 11/25/20 08:26 PL [id number] 11/25/20 08:27 PL 11/25/20 08:26 Wound Center Nurse 2 [Procedure/Treatment] -Time 08:14 -Correct Patient Yes -Correct Side, Site, Position Yes -Correct Procedure Yes -Procedure Performed Yes -Type of Procedure Debridement -Clinical Debridement Subcutaneous -Tissue Removed Subcutaneous -Post Debridement (cm) - Length 1.9 -Post Debridement (cm) - Width 1.9 -Post Debridement (cm) - Depth 0.2 -Total Square (Post) (cm) 3.61 -Area of Debridement (cm) - Length 1.9 -Area of Debridement (cm) - Width 1.9 -Total Square (Area) (cm) 3.61 -Tunneling No -Undermining/Tunneling No -Circular Undermining No -Wound/Ulcer Outcome Not Healed -Ulcer Cleansing Rinsed/ Irrigated with Saline -Foul Odor after Cleansing No -Bioengineered Tissue No -Debridement - Subq, 1st 20sq cm Yes [See Physician Procedure note for Specifics] Pain Scale: 0-10 Numeric [Pain] -Is Patient Pain Free? Yes Musculoskeletal: No Muscle Wasting Neurological: Cranial nerves II-XII grossly intact, Neuro grossly intact Psych/Mental Status: Normal Affect, Appropriate, Alert and oriented to time, place, person, mood and affect Debridement Note Post-Debridement Measurements/Treatment WC - Nurse 2 - General Ulcer CM Notes Start: 11/04/20 07:46 Freq: Status: Active Protocol: Activity Type Activity Date Activity User E-Sign Co-Sign Detail Recorded Client Recorded Date Recorded By Document 11/04/20 09:22 PL [id number] 11/04/20 09:23 PL Document 11/25/20 08:26 PL [id number] 11/25/20 08:27 PL 11/04/20 11/25/20 09:22 08:26 Wound Center Nurse 2 #1 Lateral LLE -Time 08:20 08:14 -Correct Patient Yes Yes -Correct Side, Site, Position Yes Yes -Correct Procedure Yes Yes -Procedure Performed Yes Yes -Type of Procedure Debridement Debridement -Clinical Debridement Subcutaneous Subcutaneous -Tissue Removed Subcutaneous Subcutaneous -Post Debridement (cm) - Length 2.5 1.9 -Post Debridement (cm) - Width 2.5 1.9 -Post Debridement (cm) - Depth 0.1 0.2 -Total Square (Post) (cm) 6.25 3.61 -Area of Debridement (cm) - Length 2.5 1.9 -Area of Debridement (cm) - Width 2.5 1.9 -Total Square (Area) (cm) 6.25 3.61 -Tunneling No No -Undermining/Tunneling No No -Circular Undermining No No -Wound/Ulcer Outcome Not Healed Not Healed -Ulcer Cleansing Rinsed/ Rinsed/ Irrigated with Irrigated with Saline Saline -Foul Odor after Cleansing No No -Bioengineered Tissue No No -Bleeding Controlled with Pressure -Treatment Response Procedure Tolerated Well -Debridement - Subq, 1st 20sq cm Yes Yes Pain Scale: 0-10 Numeric Is Patient Pain Free? Yes Yes - Nurse 3 - General Ulcer D/C NN Start: 11/04/20 07:46 Freq: Status: Active Protocol: Activity Type Activity Date Activity User E-Sign Co-Sign Detail Recorded Client Recorded Date Recorded By Document 11/04/20 08:28 DL [id number] 11/04/20 08:30 DL 11/04/20 08:28 Wound Care Nurse 3 #1 Lateral LLE -Ulcer Cleansing Rinsed/ Irrigated with Saline -Foul Odor after Cleansing No -Other Dressing Medihoney -Primary Dressing Covered/Secured with Dry Gauze, Secured with Tape Left -Other Pts stocking Treatment Response Procedure Tolerated Well WC - Visit Discharge Discharge Condition Stable Ambulatory Status Ambulatory Transportation Private Auto Laterality: Left - Lateral calf Type of Debridement: Excisional debridement Anesthesia Used: 5% Lidocaine Gel Depth: Down to and including healthy tissue, in the subcutaneous layer Percentage of wound debrided: 100 Instrument Used: 5mm curette Tissue Removed: Bioburden Severity: Fat Layer Exposed Amount of bleeding with debridement: Mild Bleeding Controlled with: Compression and gauze Patient tolerated procedure well Assessment/Plan Active Problems Leg swelling (Chronic) Leg edema (Chronic) Abscess of left leg (Chronic) Surgical wound present (Chronic) Chronic venous insufficiency (Chronic) 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 He was hospitalized for approximately 5 days, and underwent incision and drainage of the abscess. He presented here for definitive management. At the time of his initial presentation, the patient was noted to have a large amount of frankly necrotic and nonviable tissue present at the site of his former abscess, with some tunneling as well. The patient also suffers from longstanding swelling and edema of his lower extre mities, and is known to have a history of superficial thrombophlebitis in the left lower extremity previously. Physical findings suggest longstanding chronic venous insufficiency. The patient has undergone a battery of diagnostic testing. An x-ray of the left tibia/fibula shows soft tissue changes, but no other abnormalities. Laboratory results from 03/20/2020 are as follows: White blood count 6.0, hemoglobin 14.4, hematocrit 44.7, platelets 247,000, sodium 137, potassium 4.1, chloride 104, BUN 20, creatinine 0.76, glucose 127, calcium 9.1, total bilirubin 0.60, AST 14, ALT 31, alkaline phosphatase 57, total protein 7.6, albumin 4.1, prealbumin 29.2. Recently, a noninvasive lower extremity arterial study revealed no evidence of significant arterial occlusive disease in the lower extremities. A venous duplex examination revealed incompetence of the great saphenous veins bilaterally. At this juncture, the patient appears to be progressing well, though little change has been noted in his left lateral calf wound in the last several weeks. Previously, there had been progressive decrease in the size and depth of his wound. Undermining posteriorly is resolved. Wound cultures obtained last week were positive for Staph aureus and strep species. Patient was placed on Augmentin 875 mg p.o. twice daily for a total of 10 days, which has now been completed. Plan: The patient has been advised to continue conservative treatment measures. These are to include leg elevation. He is to continue sleeping on a flat mattress at night. His legs are to be elevated to heart level, or higher, even during daytime hours. This is to be implemented as much as possible. The patient has been advised to refrain from prolonged, idle standing and sitting. Activity has been encouraged. Implementation of the calf and foot muscle pumps has been explained. Weight loss is also been recommended. The patient has obtained graduated compression stockings of 20 to 30 mmHg compression, and has been wearing daily. However, the patient's recent lack of progress elicits concern relative to his compliance with recommended measures. While the patient's willing compliance may be adequate, he does work long hours each day at the local [employer], which results in long hours of lower extremity dependency, thus enhancing venous hypertension. We are to transition to the use of a 3M, 2 layer compression wrap to the left lower extremity, which will be applied twice weekly. We are to use moisturizing skin lotion to the scaly dermatitic intact skin, and Promogran applied topically to the wound with each compression wrap change. Approval for the use of EpiFix and PuraPly was sought, but denied by the patient's insurance company. The patient is to return in 1 week for reassessment. Once again, we have reinforced the need for compression, elevation, avoidance of prolonged idle sitting, etc. We will continue to monitor the patient's wound serially, and to assess the patient's progress. The patient's wound cultures were positive for Staph aureus and strep species, and the patient has completed a course of Augmentin 875 mg p.o. twice daily for a total of 10 days. Patient smokes rarely, but has been advised to refrain from his smoking habit. Influenza vaccine was not administered today. Patient stands 5 feet 10 inches tall. He weighs 246 pounds. His BMI is 35.3, which places him in a class II obesity category. Weight loss has been recommended, and collaboration with the patient's primary care physician has been advised. Total time: 26 minutes.
[2020-11-28 08:00] VITALS: BP 145/72; PULSE 90; RESP 18; TEMP 36.6; BMI 35.3
== END 2020-11-30 23:59 ==
LOC: WC 07:45
PROVIDERS: PCP Family Medicine; Referring Provider Surgery; Visit Provider Surgery
DX: L02.416 Cutaneous abscess of left lower limb (principal); R60.0 Localized edema; I83.222 Varicose veins of left lower extremity with both ulcer of calf and inflammation; L97.222 Non-pressure chronic ulcer of left calf with fat layer exposed; I83.11 Varicose veins of right lower extremity with inflammation; E66.9 Obesity, unspecified; F17.210 Nicotine dependence, cigarettes, uncomplicated; Z79.899 Other long term (current) drug therapy; Z68.35 Body mass index [BMI] 35.0-35.9, adult
CPT/HCPCS: 11042; 29581

== ENCOUNTER 2020-12-30 07:45 | Outpatient (RCR) | payer OTHER, SELFPAY ==
[2020-11-25 07:44] VITALS: BMI 35.3
[2020-12-01 00:19] VITALS: BP 148/70; PULSE 88; RESP 18; TEMP 36.4
[2020-12-02 07:44] VITALS: BP 157/78; PULSE 87; RESP 18; TEMP 36.6; BMI 35.3
--- NOTE | 2020-12-02 08:20 | PCM.WC.HP ---
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 Code(s): I87.093 - Postthrombotic syndrome with other complications of bilateral lower extremity (7) Hyperpigmentation of skin Status: Chronic Code(s): L81.9 - Disorder of pigmentation, unspecified (8) Lipodermatosclerosis of both lower extremities Status: Chronic Code(s): I83.11 - Varicose veins of right lower extremity with inflammation; I83.12 - Varicose veins of left lower extremity with inflammation (9) Diallo phlebectatica Status: Chronic (10) Wound of left leg Status: Chronic Qualifiers: Code(s): S81.802A - Unspecified open wound, left lower leg, initial encounter (11) Necrosis Status: Chronic Code(s): I96 - Gangrene, not elsewhere classified (12) Obesity (BMI 35.0-39.9 without comorbidity) Status: Chronic Code(s): E66.9 - Obesity, unspecified (13) Personal history of thrombophlebitis Status: Chronic Code(s): Z86.72 - Personal history of thrombophlebitis (14) Tobacco abuse Status: Chronic Code(s): Z72.0 - Tobacco use (15) Tobacco abuse counseling Status: Chronic Code(s): Z71.6 - Tobacco abuse counseling History of Present Illness Date of Service: 12/02/20 Chief Complaint: Open wound of the left lateral calf, status-post incision and drainage of abscess History of Wound: This is a 60-year-old male who was admitted to [facility] approximately 1 month prior to presentation with a large abscess on the left lateral calf. On February 11, 2020, he underwent incision and drainage of the abscess. He spent approximately 5 days in the hospital, and was subsequently discharged on Augmentin. The patient claims to sleep on a flat mattress at night. However, he suffers from chronic swelling and edema in both lower extremities. Additionally, he has a history of superficial thrombophlebitis in the left lower extremity, and has undergone a prior left lower extremity vein stripping procedure in the remote past. Patient has developed chronic skin changes in his lower extremities, which include hyperpigmentation and lipodermatosclerosis in the gaiter areas bilaterally. Patient is also noted to have diallo phlebectatica at ankle level bilaterally. The patient claims to be relatively active. Management the time of presentation included the use of a wet-to-dry gauze packing daily. It is noted that patient underwent a venous duplex examination during his hospitalization recently, that was negative for any evidence of thrombosis, but indicated valvular incompetence of the deep and superficial venous systems bilaterally. Past Medical History Past Medical History: Chronic Problems Leg swelling (Chronic) Leg edema (Chronic) Abscess of left leg (Chronic) Surgical wound present (Chronic) Chronic venous insufficiency (Chronic) Post-phlebitic dermatosis of both lower extremities (Chronic) Hyperpigmentation of skin (Chronic) Lipodermatosclerosis of both lower extremities (Chronic) Diallo phlebectatica (Chronic) Wound of left leg (Chronic) Necrosis (Chronic) Obesity (BMI 35.0-39.9 without comorbidity) (Chronic) Personal history of thrombophlebitis (Chronic) Tobacco abuse (Chronic) Tobacco abuse counseling (Chronic) Surgical History: - - Patient has previously undergone a left lower extremity vein stripping procedure in the remote past. Home Medications: Ambulatory Orders Medication Instructions Recorded Augmentin 875-125 Tablet 875 mg PO BID 03/18/20 Rosuvastatin Calcium [Crestor] 20 mg PO DAILY 03/18/20 - Family History Paternal - - Patient's father at the age of 72 with a history of cerebrovascular accident and venous disease. Patient's mother at the age of 90, of old age. Smoking Status: Light Smoker (<10/day) Tobacco Use: Cigarettes Review of Systems Constitutional: Denies: Chills, Fever, Weight Change Eyes: Denies: Pain, Vision Change HEENT: Denies: Difficulty Hearing, Difficulty Swallowing, Sinus Congestion Cardiovascular: Denies: Chest Pain, Palpitations Respiratory: Denies: Cough, Shortness of Breath Gastrointestinal: Denies: Diarrhea, Nausea, Vomiting Genitourinary: Denies: Dysuria, Hematuria Endocrine: Denies: Heat/ Cold Intolerance, Polydipsia, Polyuria Hematologic/ Lymphatic: Denies: Easy Bruising, Easy Bleeding - Physical Exam Vital Signs Temp Pulse Resp BP 97.8 F 87 18 157/78 H 12/02/20 07:44 12/02/20 07:44 12/02/20 07:44 12/02/20 07:44 General: Alert, Oriented x3, Cooperative, No apparent distress, Well developed, Well nourished HEENT: Atraumatic, PERRLA, EOMI, Normocephalic Oral: Moist Mucosa Neck: No JVD Lungs: Normal air movement Abdomen: Non-Distended, Obese Extremities: No clubbing, No cyanosis, No Calf Tenderness, - - Chronic venous changes persist in the patient's left lower extremity. Large bulging varicose veins are noted. Hyperpigmentation is noted in the gaiter area. A diffuse superficial scaly dermatitis is also noted. Addt'l Wound Findings: The wound persists on the patient's left lateral calf. It is little changed in size or appearance. There is a moderate amount of bioburden. There is no sign of infection or cellulitis. Dimensions are documented elsewhere. Wound Measurements and Assessment WC - Nurse 1 - General Ulcer Measurement Start: 12/02/20 07:44 Freq: Status: Active Protocol: Activity Type Activity Date Activity User E-Sign Co-Sign Detail Recorded Client Recorded Date Recorded By Document 12/02/20 07:44 PL [id number] 12/02/20 07:52 PL 12/02/20 07:44 Wound Center Nurse 1 [Ulcer Assessment] #1 Lateral LLE -Combined with other wound No -Current Size (cm) - Length 2.0 -Current Size (cm) - Width 1.8 -Current Size (cm) - Depth 0.2 -Total Square Cm 3.60 -Photo Taken No -Epithelialization None Present -Tunneling No -Undermining/Tunneling No -Circular Undermining No -Exudate Amt Medium -Exudate Type Serosanguineous -Granulation Amt Medium (34-66%) -Granulation Quality [place] -Slough/Fibrin Yes -Necrosis Amt Medium (34-66%) -Necrotic Tissue Type Adherent Slough -Texture (Lois-wound Skin Appearance) No Abnormality -Moisture (Lois-wound Skin Appearance Dry/Scaly ) -Color (Lois-wound Skin Appearance) No Abnormality -Temperature (Lois-wound Skin No Abnormality Appearance) (Pt Warm) -Ulcer Cleansing Rinsed/ Irrigated with Saline -Foul Odor after Cleansing No -Anesthetic Used 5% Lidocaine Gel Musculoskeletal: No Muscle Wasting Neurological: Cranial nerves II-XII grossly intact, Neuro grossly intact Psych/Mental Status: Normal Affect, Appropriate, Alert and oriented to time, place, person, mood and affect Debridement Note Laterality: Left - Lateral calf Type of Debridement: Excisional debridement Anesthesia Used: 5% Lidocaine Gel Depth: Down to and including healthy tissue, in the subcutaneous layer Percentage of wound debrided: 100 Instrument Used: 5mm curette Tissue Removed: Bioburden Severity: Fat Layer Exposed Amount of bleeding with debridement: Mild Bleeding Controlled with: Compression and gauze Patient tolerated procedure well Assessment/Plan Active Problems Leg swelling (Chronic) Leg edema (Chronic) Abscess of left leg (Chronic) Surgical wound present (Chronic) Chronic venous insufficiency (Chronic) 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 He was hospitalized for approximately 5 days, and underwent incision and drainage of the abscess. He presented here for definitive management. At the time of his initial presentation, the patient was noted to have a large amount of frankly necrotic and nonviable tissue present at the site of his former abscess, with some tunneling as well. The patient also suffers from longstanding swelling and edema of his lower extremities, and is known to have a history of superficial thrombophlebitis in the left lower extremity previously. Physical findings suggest longstanding chronic venous insufficiency. The patient has undergone a battery of diagnostic testing. An x-ray of the left tibia/fibula shows soft tissue changes, but no other abnormalities. Laboratory results from 03/20/2020 are as follows: White blood count 6.0, hemoglobin 14.4, hematocrit 44.7, platelets 247,000, sodium 137, potassium 4.1, chloride 104, BUN 20, creatinine 0.76, glucose 127, calcium 9.1, total bilirubin 0.60, AST 14, ALT 31, alkaline phosphatase 57, total protein 7.6, albumin 4.1, prealbumin 29.2. Recently, a noninvasive lower extremity arterial study revealed no evidence of significant arterial occlusive disease in the lower extremities. A venous duplex examination revealed incompetence of the great saphenous veins bilaterally. At this juncture, the patient appears to be progressing well, though little change has been noted in his left lateral calf wound in the last several weeks. Previously, there had been progressive decrease in the size and depth of his wound. Undermining posteriorly is resolved. Prior wound cultures were positive for Staph aureus and strep species. Patient was placed on Augmentin 875 mg p.o. twice daily for a total of 10 days, which has now been completed. Plan: The patient has been advised to continue conservative treatment measures. These are to include leg elevation. He is to continue sleeping on a flat mattress at night. His legs are to be elevated to heart level, or higher, even during daytime hours. This is to be implemented as much as possible. The patient has been advised to refrain from prolonged, idle standing and sitting. Activity has been encouraged. Implementation of the calf and foot muscle pumps has been explained. Weight loss is also been recommended. The patient has obtained graduated compression stockings of 20 to 30 mmHg compression. A short trial of 3M 2 layer compression wraps has been completed, and we are to return to the use of graduated compression stockings on a daily basis. There was no significant improvement using compression wraps. We are also to return to the use of Promogran topically on a daily basis. While the patient's willing compliance may be adequate, he does work long hours each day at the local [employer], which results in long hours of lower extremity dependency, thus enhancing venous hypertension. 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 There is continued concern as to the patient's occupation and the demands for prolonged idle sitting, which is thought to be a contributing factor to the patient's lack of progress. This has been discussed with the patient repeatedly. The patient is to use moisturizing skin lotion to the scaly dermatitic intact skin, and Promogran applied topically to the wound daily. Approval for the use of EpiFix and PuraPly was sought, but denied by the patient's insurance company. The patient is to return in 1 week for reassessment. Once again, we have reinforced the need for compression, elevation, avoidance of prolonged idle sitting, etc. We will continue to monitor the patient's wound serially, and to assess the patient's progress. The patient's wound cultures were positive for Staph aureus and strep species, and the patient has completed a course of Augmentin 875 mg p.o. twice daily for a total of 10 days. We will also seek preauthorization for the use of negative pressure wound therapy, using a Snap VAC. Patient smokes approximately 1/2 pack of cigarettes per day, and has been advised to refrain from his smoking habit. Influenza vaccine was not administered today. Patient stands 5 feet 10 inches tall. He weighs 246 pounds. His BMI is 35.3, which places him in a class II obesity category. Weight loss has been recommended, and collaboration with the patient's primary care physician has been advised. Total time: 28 minutes.
[2020-12-09 07:44] VITALS: BP 156/81; PULSE 81; RESP 16; TEMP 35.2; BMI 35.3
--- NOTE | 2020-12-09 08:22 | HP.PCM_ITS ---
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 Code(s): I87.093 - Postthrombotic syndrome with other complications of bilateral lower extremity (7) Hyperpigmentation of skin Status: Chronic Code(s): L81.9 - Disorder of pigmentation, unspecified (8) Lipodermatosclerosis of both lower extremities Status: Chronic Code(s): I83.11 - Varicose veins of right lower extremity with inflammation; I83.12 - Varicose veins of left lower extremity with inflammation (9) Diallo phlebectatica Status: Chronic (10) Wound of left leg Status: Chronic Qualifiers: Code(s): S81.802A - Unspecified open wound, left lower leg, initial encounter (11) Necrosis Status: Chronic Code(s): I96 - Gangrene, not elsewhere classified (12) Obesity (BMI 35.0-39.9 without comorbidity) Status: Chronic Code(s): E66.9 - Obesity, unspecified (13) Personal history of thrombophlebitis Status: Chronic Code(s): Z86.72 - Personal history of thrombophlebitis (14) Tobacco abuse Status: Chronic Code(s): Z72.0 - Tobacco use (15) Tobacco abuse counseling Status: Chronic Code(s): Z71.6 - Tobacco abuse counseling History of Present Illness Date of Service: 12/09/20 Chief Complaint: Open wound of the left lateral calf, status-post incision and d rainage of abscess History of Wound: This is a 60-year-old male who was admitted to [facility] approximately 1 month prior to presentation with a large abscess on the left lateral calf. On February 11, 2020, he underwent incision and drainage of the abscess. He spent approximately 5 days in the hospital, and was subsequently discharged on Augmentin. The patient claims to sleep on a flat mattress at night. However, he suffers from chronic swelling and edema in both lower extremities. Additionally, he has a history of superficial thrombophlebitis in the left lower extremity, and has undergone a prior left lower extremity vein stripping procedure in the remote past. Patient has developed chronic skin changes in his lower extremities, which include hype rpigmentation and lipodermatosclerosis in the gaiter areas bilaterally. Patient is also noted to have diallo phlebectatica at ankle level bilaterally. The patient claims to be relatively active. Management the time of presentation included the use of a wet-to-dry gauze packing daily. It is noted that patient underwent a venous duplex examination during his hospitalization recently, that was negative for any evidence of thrombosis, but indicated valvular incompetence of the deep and superficial venous systems bilaterally. Past Medical History Past Medical History: Chronic Problems Leg swelling (Chronic) Leg edema (Chronic) Abscess of left leg (Chronic) Surgical wound present (Chronic) Chronic venous insufficiency (Chronic) Post-phlebitic dermatosis of both lower extremities (Chronic) Hyperpigmentation of skin (Chronic) Lipodermatosclerosis of both lower extremities (Chronic) Diallo phlebectatica (Chronic) Wound of left leg (Chronic) Necrosis (Chronic) Obesity (BMI 35.0-39.9 without comorbidity) (Chronic) Personal history of thrombophlebitis (Chronic) Tobacco abuse (Chronic) Tobacco abuse counseling (Chronic) Surgical History: - - Patient has previously undergone a left lower extremity vein stripping procedure in the remote past. Home Medications: Ambulatory Orders Medication Instructions Recorded Augmentin 875-125 Tablet 875 mg PO BID 03/18/20 Rosuvastatin Calcium [Crestor] 20 mg PO DAILY 03/18/20 - Family History Paternal - - Patient's father at the age of 72 with a history of cerebrovascular accident and venous disease. Patient's mother at the age of 90, of old age. Smoking Status: Light Smoker (<10/day) Tobacco Use: Cigarettes Review of Systems Constitutional: Denies: Chills, Fever, Weight Change Eyes: Denies: Pain, Vision Change HEENT: Denies: Difficulty Hearing, Difficulty Swallowing, Sinus Congestion Cardiovascular: Denies: Chest Pain, Palpitations Respiratory: Denies: Cough, Shortness of Breath Gastrointestinal: Denies: Diarrhea, Nausea, Vomiting Genitourinary: Denies: Dysuria, Hematuria Endocrine: Denies: Heat/ Cold Intolerance, Polydipsia, Polyuria Hematologic/ Lymphatic: Denies: Easy Bruising, Easy Bleeding - Physical Exam Vital Signs Temp Pulse Resp BP 95.4 F L 81 16 156/81 H 12/09/20 07:44 12/09/20 07:44 12/09/20 07:44 12/09/20 07:44 General: Alert, Oriented x3, Cooperative, No apparent distress, Well developed, Well nourished HEENT: Atraumatic, PERRLA, EOMI, Normocephalic Oral: Moist Mucosa Neck: No JVD Lungs: Normal air movement Abdomen: Non-Distended Extremities: No clubbing, No cyanosis, No Calf Tenderness, - - Slight swelling and edema noted in the patient's left lower extremity. Mild hyperpigmentation is noted in the left gaiter area. Multiple large varicosities are noted diffusely. Addt'l Wound Findings: The wound on the left lateral calf persists. It is little changed in size or appearance. There is no sign of infection or cellulitis. Dimensions are documented elsewhere. There is a small amount of bioburden. Skin: No rashes Wound Measurements and Assessment WC - Nurse 1 - General Ulcer Measurement Start: 12/02/20 07:44 Freq: Status: Active Protocol: Activity Type Activity Date Activity User E-Sign Co-Sign Detail Recorded Client Recorded Date Recorded By Document 12/09/20 07:44 MW [id number] 12/09/20 07:49 MW 12/09/20 07:44 Wound Center Nurse 1 [Ulcer Assessment] #1 Lateral LLE -Combined with other wound No -Current Size (cm) - Length 1.9 -Current Size (cm) - Width 1.8 -Current Size (cm) - Depth 0.2 -Total Square Cm 3.42 -Photo Taken No -Epithelialization None Present -Tunneling No -Undermining/Tunneling No -Circular Undermining No -Exudate Amt Small -Exudate Type Serosanguineous -Wound Margin Flat & Intact -Granulation Amt Medium (34-66%) -Granulation Quality [place] -Slough/Fibrin Yes -Necrosis Amt Medium (34-66%) -Necrotic Tissue Type Adherent Slough -Structure Exposed N/A -Texture (Lois-wound Skin Appearance) Assessed, Excoriation, Localized Edema ,Scarring -Moisture (Lois-wound Skin Appearance Assessed,Dry/ ) Scaly -Color (Lois-wound Skin Appearance) Assessed, Hemosiderin Staining -Temperature (Lois-wound Skin No Abnormality Appearance) (Pt Warm) -Tenderness on Palpation (Lois-wound Yes Skin Appearance) -Ulcer Cleansing Rinsed/ Irrigated with Saline -Foul Odor after Cleansing No -Anesthetic Used 4% Lidocaine Solution [Edema Assessment] -Lower Limb Edema Present Yes -Left Calf (cm) 43.0 -Left Ankle (cm) 25.0 Musculoskeletal: No Muscle Wasting Neurological: Cranial nerves II-XII grossly intact, Neuro grossly intact Psych/Mental Status: Normal Affect, Appropriate, Alert and oriented to time, place, person, mood and affect Debridement Note Post-Debridement Measurements/Treatment WC - Nurse 2 - General Ulcer CM Notes Start: 12/02/20 07:44 Freq: Status: Active Protocol: Activity Type Activity Date Activity User E-Sign Co-Sign Detail Recorded Client Recorded Date Recorded By Document 12/02/20 13:36 PL [id number] 12/02/20 13:38 PL 12/02/20 13:36 Wound Center Nurse 2 #1 Lateral LLE -Time 08:09 -Correct Patient Yes -Correct Side, Site, Position Yes -Correct Procedure Yes -Procedure Performed Yes -Type of Procedure Debridement -Clinical Debridement Subcutaneous -Tissue Removed Subcutaneous -Post Debridement (cm) - Length 2 -Post Debridement (cm) - Width 1.8 -Post Debridement (cm) - Depth 0.2 -Total Square (Post) (cm) 3.6 -Area of Debridement (cm) - Length 2.0 -Area of Debridement (cm) - Width 1.8 -Total Square (Area) (cm) 3.60 -Tunneling No -Undermining/Tunneling No -Circular Undermining No -Wound/Ulcer Outcome Not Healed -Ulcer Cleansing Rinsed/ Irrigated with Saline -Foul Odor after Cleansing No -Bioengineered Tissue No -Debridement - Subq, 1st 20sq cm Yes Pain Scale: 0-10 Numeric Is Patient Pain Free? Yes WC - Nurse 3 - General Ulcer D/C NN Start: 12/02/20 07:44 Freq: Status: Active Protocol: Activity Type Activity Date Activity User E-Sign Co-Sign Detail Recorded Client Recorded Date Recorded By Document 12/02/20 13:36 PL [id number] 12/02/20 13:38 PL 12/02/20 13:36 Is Patient Pain Free? Yes Wound Care Nurse 3 #1 Lateral LLE -Ulcer Cleansing Rinsed/ Irrigated with Saline -Foul Odor after Cleansing No -Other Dressing Promogran -Primary Dressing Covered/Secured with Dry Gauze, Secured with Tape WC - Visit Discharge Discharge Condition Stable Ambulatory Status Ambulatory Transportation Private Auto Laterality: Left - Lateral calf Type of Debridement: Excisional debridement Anesthesia Used: 5% Lidocaine Gel Depth: Down to and including healthy tissue, in the subcutaneous layer Percentage of wound debrided: 100 Instrument Used: 5mm curette Tissue Removed: Bioburden Severity: Fat Layer Exposed Amount of bleeding with debridement: Mild Bleeding Controlled with: Compression and gauze Patient tolerated procedure well Assessment/Plan Active Problems Leg swelling (Chronic) Leg edema (Chronic) Abscess of left leg (Chronic) Surgical wound present (Chronic) Chronic venous insufficiency (Chronic) Post-phlebitic dermatosis of both lower extremities (Chronic) Hyperpigmentation of skin (Chronic) Lipodermatosclerosis of both lower extremities (Chronic) Diallo phlebectatica (Chronic) Wound of left leg (Chronic) Necrosis (Chronic) Obesity (BMI 35.0-39.9 without comorbidity) (Chronic) Personal history of thrombophlebitis (Chronic) Tobacco abuse (Chronic) Tobacco abuse counseling (Chronic) Assessment: This is a 60-year-old male who presented elsewhere initially with a large abscess on the left lateral calf. He was hospitalized for approximately 5 days, and underwent incision and drainage of the abscess. He presented here for definitive management. At the time of his initial presentation, the patient was noted to have a large amount of frankly necrotic and nonviable tissue present at the site of his former abscess, with some tunneling as well. The patient also suffers from longstanding swelling and edema of his lower extremities, and is known to have a history of superficial thrombophlebitis in the left lower extremity previously. Physical findings suggest longstanding chronic venous insufficiency. The patient has undergone a battery of diagnostic testing. An x-ray of the left tibia/fibula shows soft tissue changes, but no other abnormalities. Laboratory results from 03/20/2020 are as follows: White blood count 6.0, hemoglobin 14.4, hematocrit 44.7, platelets 247,000, sodium 137, potassium 4.1, chloride 104, BUN 20, creatinine 0.76, glucose 127, calcium 9.1, total bilirubin 0.60, AST 14, ALT 31, alkaline phosphatase 57, total protein 7.6, albumin 4.1, prealbumin 29.2. Recently, a noninvasive lower extremity arterial study revealed no evidence of significant arterial occlusive disease in the lower extremities. A venous duplex examination revealed incompetence of the great saphenous veins bilaterally. At this juncture, the patient appears to be progressing well, though little change has been noted in his left lateral calf wound in the last several weeks. Previously, there had been progressive decrease in the size and depth of his wound. Undermining posteriorly is resolved. Prior wound cultures were positive for Staph aureus and strep species. Patient was placed on Augmentin 875 mg p.o. twice daily for a total of 10 days, which has now been completed. Plan: The patient has been advised to continue conservative treatment measures. These are to include leg elevation. He is to continue sleeping on a flat mattress at night. His legs are to be elevated to heart level, or higher, even during daytime hours. This is to be implemented as much as possible. The patient has been advised to refrain from prolonged, idle standing and sitting. Activity has been encouraged. Implementation of the calf and foot muscle pumps has been explained. Weight loss is also been recommended. The patient has obtained graduated compression stockings of 20 to 30 mmHg compression. While the patient's willing compliance may be adequate, he does work long hours each day at the local [employer], which results in long hours of lower extremity de pendency, thus enhancing venous hypertension. There is continued concern as to the patient's occupation and the demands for prolonged idle sitting, which is thought to be a contributing factor to the patient's lack of progress. This has been discussed with the patient repeatedly. We have obtained approval for the use of the Snap VAC for implementation of negative pressure wound therapy. This will be applied today. Patient is to use a SurePress compression wrap, which he will apply on a daily basis, with instructions to avoid placing the tubing under the compression wrap itself. In this way, we will avoid pressure phenomenon. We are to apply Promogran topically to the wound on the left lateral calf with each weekly visit. Approval for the use of EpiFix and PuraPly was sought, but denied by the patient's insurance company. The patient is to return in 1 week for reassessment. Once again, we have reinforced the need for compression, elevation, avoidance of prolonged idle sitting, etc. We will continue to monitor the patient's wound serially, and to assess the patient's progress. The patient's wound cultures were positive for Staph aureus and strep species, and the patient has completed a course of Augmentin 875 mg p.o. twice daily for a total of 10 days. Patient smokes approximately 1/2 pack of cigarettes per day, and has been advised to refrain from his smoking habit. Influenza vaccine was not administered today. Patient stands 5 feet 10 inches tall. He weighs 246 pounds. His BMI is 35.3, which places him in a class II obesity category. Weight loss has been recommended, and collaboration with the patient's primary care physician has been advised. Total time: 28 minutes.
[2020-12-16 07:44] VITALS: BP 131/83; TEMP 28.3; BMI 35.3
--- NOTE | 2020-12-16 08:11 | HP.PCM_ITS ---
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 Code(s): I87.093 - Postthrombotic syndrome with other complications of bilateral lower extremity (7) Hyperpigmentation of skin Status: Chronic Code(s): L81.9 - Disorder of pigmentation, unspecified (8) Lipodermatosclerosis of both lower extremities Status: Chronic Code(s): I83.11 - Varicose veins of right lower extremity with inflammation; I83.12 - Varicose veins of left lower extremity with inflammation (9) Diallo phlebectatica Status: Chronic (10) Wound of left leg Status: Chronic Qualifiers: Code(s): S81.802A - Unspecified open wound, left lower leg, initial encounter (11) Necrosis Status: Chronic Code(s): I96 - Gangrene, not elsewhere classified (12) Obesity (BMI 35.0-39.9 without comorbidity) Status: Chronic Code(s): E66.9 - Obesity, unspecified (13) Personal history of thrombophlebitis Status: Chronic Code(s): Z86.72 - Personal history of thrombophlebitis (14) Tobacco abuse Status: Chronic Code(s): Z72.0 - Tobacco use (15) Tobacco abuse counseling Status: Chronic Code(s): Z71.6 - Tobacco abuse counseling History of Present Illness Date of Service: 12/16/20 Chief Complaint: Open wound of the left lateral calf, status-post incision and d rainage of abscess History of Wound: This is a 60-year-old male who was admitted to [facility] approximately 1 month prior to presentation with a large abscess on the left lateral calf. On February 11, 2020, he underwent incision and drainage of the abscess. He spent approximately 5 days in the hospital, and was subsequently discharged on Augmentin. The patient claims to sleep on a flat mattress at night. However, he suffers from chronic swelling and edema in both lower extremities. Additionally, he has a history of superficial thrombophlebitis in the left lower extremity, and has undergone a prior left lower extremity vein stripping procedure in the remote past. Patient has developed chronic skin changes in his lower extremities, which include hype rpigmentation and lipodermatosclerosis in the gaiter areas bilaterally. Patient is also noted to have diallo phlebectatica at ankle level bilaterally. The patient claims to be relatively active. Management the time of presentation included the use of a wet-to-dry gauze packing daily. It is noted that patient underwent a venous duplex examination during his hospitalization recently, that was negative for any evidence of thrombosis, but indicated valvular incompetence of the deep and superficial venous systems bilaterally. Past Medical History Past Medical History: Chronic Problems Leg swelling (Chronic) Leg edema (Chronic) Abscess of left leg (Chronic) Surgical wound present (Chronic) Chronic venous insufficiency (Chronic) Post-phlebitic dermatosis of both lower extremities (Chronic) Hyperpigmentation of skin (Chronic) Lipodermatosclerosis of both lower extremities (Chronic) Diallo phlebectatica (Chronic) Wound of left leg (Chronic) Necrosis (Chronic) Obesity (BMI 35.0-39.9 without comorbidity) (Chronic) Personal history of thrombophlebitis (Chronic) Tobacco abuse (Chronic) Tobacco abuse counseling (Chronic) Surgical History: - - Patient has previously undergone a left lower extremity vein stripping procedure in the remote past. Home Medications: Ambulatory Orders Medication Instructions Recorded Augmentin 875-125 Tablet 875 mg PO BID 03/18/20 Rosuvastatin Calcium [Crestor] 20 mg PO DAILY 03/18/20 - Family History Paternal - - Patient's father at the age of 72 with a history of cerebrovascular accident and venous disease. Patient's mother at the age of 90, of old age. Smoking Status: Light Smoker (<10/day) Tobacco Use: Cigarettes Review of Systems Constitutional: Denies: Chills, Fever, Weight Change Eyes: Denies: Pain, Vision Change HEENT: Denies: Difficulty Hearing, Difficulty Swallowing, Sinus Congestion Cardiovascular: Denies: Chest Pain, Palpitations Respiratory: Denies: Cough, Shortness of Breath Gastrointestinal: Denies: Diarrhea, Nausea, Vomiting Genitourinary: Denies: Dysuria, Hematuria Endocrine: Denies: Heat/ Cold Intolerance, Polydipsia, Polyuria Hematologic/ Lymphatic: Denies: Easy Bruising, Easy Bleeding - Physical Exam Vital Signs Temp Pulse Resp BP 83 F L 81 16 131/83 H 12/16/20 07:44 12/09/20 07:44 12/09/20 07:44 12/16/20 07:44 General: Alert, Oriented x3, Cooperative, No apparent distress, Well developed, Well nourished HEENT: Atraumatic, PERRLA, EOMI, Normocephalic Oral: Moist Mucosa Neck: No JVD Lungs: Normal air movement Abdomen: Non-Distended Extremities: No clubbing, No cyanosis, No Calf Tenderness, - - Slight swelling and edema persist in the left lower extremity. There are chronic skin changes, namely lipodermatosclerosis and hyperpigmentation in the gaiter area. There are multiple large varicosities. Addt'l Wound Findings: The wound on the left lateral calf persists. It is smaller in size. Dimensions are documented elsewhere. There is a small amount of bioburden. There is no sign of infection or cellulitis. It appears to be more superficial, and wound margins appear to be increasingly more beveled. The base of the wound is generally pink and healthy in appearance. Skin: No rashes Wound Measurements and Assessment WC - Nurse 1 - General Ulcer Measurement Start: 12/02/20 07:44 Freq: Status: Active Protocol: Activity Type Activity Date Activity User E-Sign Co-Sign Detail Recorded Client Recorded Date Recorded By Document 12/16/20 07:44 KR [id number] 12/16/20 07:48 KR 12/16/20 07:44 Wound Center Nurse 1 [Ulcer Assessment] #1 Lateral LLE -Current Size (cm) - Length 1.5 -Current Size (cm) - Width 1 -Current Size (cm) - Depth 0.1 -Total Square Cm 1.5 -Exudate Amt Medium -Exudate Type Serosanguineous -Wound Margin Distinct, Outline Attached -Granulation Amt Medium (34-66%) -Granulation Quality Red -Necrosis Amt Medium (34-66%) -Necrotic Tissue Type Adherent Slough -Texture (Lois-wound Skin Appearance) Assessed, Scarring -Moisture (Lois-wound Skin Appearance No Abnormality, ) Assessed -Color (Lois-wound Skin Appearance) No Abnormality, Assessed -Temperature (Lois-wound Skin No Abnormality Appearance) (Pt Warm) -Tenderness on Palpation (Lois-wound No Skin Appearance) -Ulcer Cleansing Rinsed/ Irrigated with Saline -Foul Odor after Cleansing No -Anesthetic Used 4% Lidocaine Solution Musculoskeletal: No Muscle Wasting Neurological: Cranial nerves II-XII grossly intact, Neuro grossly intact Psych/Mental Status: Normal Affect, Appropriate, Alert and oriented to time, place, person, mood and affect Debridement Note Post-Debridement Measurements/Treatment WC - Nurse 2 - General Ulcer CM Notes Start: 12/02/20 07:44 Freq: Status: Active Protocol: Activity Type Activity Date Activity User E-Sign Co-Sign Detail Recorded Client Recorded Date Recorded By Document 12/02/20 13:36 PL [id number] 12/02/20 13:38 PL Document 12/09/20 08:49 PL [id number] 12/09/20 08:51 PL 12/02/20 12/09/20 13:36 08:49 Wound Center Nurse 2 #1 Lateral LLE -Time 08:09 08:10 -Correct Patient Yes Yes -Correct Side, Site, Position Yes Yes -Correct Procedure Yes Yes -Procedure Performed Yes Yes -Type of Procedure Debridement Debridement -Clinical Debridement Subcutaneous Subcutaneous -Tissue Removed Subcutaneous Subcutaneous -Post Debridement (cm) - Length 2 1.9 -Post Debridement (cm) - Width 1.8 1.8 -Post Debridement (cm) - Depth 0.2 0.2 -Total Square (Post) (cm) 3.6 3.42 -Area of Debridement (cm) - Length 2.0 1.9 -Area of Debridement (cm) - Width 1.8 1.8 -Total Square (Area) (cm) 3.60 3.42 -Tunneling No No -Undermining/Tunneling No No -Circular Undermining No No -Wound/Ulcer Outcome Not Healed Not Healed -Ulcer Cleansing Rinsed/ Rinsed/ Irrigated with Irrigated with Saline Saline -Foul Odor after Cleansing No No -Bioengineered Tissue No No -Bleeding Controlled with Pressure -Treatment Response Procedure Tolerated Well -Debridement - Subq, 1st 20sq cm Yes Yes Pain Scale: 0-10 Numeric Is Patient Pain Free? Yes Yes - Nurse 3 - General Ulcer D/C NN Start: 12/02/20 07:44 Freq: Status: Active Protocol: Activity Type Activity Date Activity User E-Sign Co-Sign Detail Recorded Client Recorded Date Recorded By Document 12/02/20 13:36 PL [id number] 12/02/20 13:38 PL Document 12/09/20 08:49 PL [id number] 12/09/20 08:51 PL 12/02/20 12/09/20 13:36 08:49 Pain Scale: 0-10 Numeric Is Patient Pain Free? Yes Yes Wound Care Nurse 3 #1 Lateral LLE -Ulcer Cleansing Rinsed/ Rinsed/ Irrigated with Irrigated with Saline Saline -Foul Odor after Cleansing No No -Negative Pressure Wound Therapy Start -Setting (mmHg) 125 -Negative Pressure is Continuous -Other Dressing Promogran Promogran -Primary Dressing Covered/Secured with Dry Gauze, Secured with Tape -NPWT Application Charge ($) NPWT </= 50 sq cm (disp) Left -Compression Wrap Surepress ($) WC - Visit Discharge Discharge Condition Stable Stable Ambulatory Status Ambulatory Ambulatory Transportation Private Auto Private Auto Clinical Summary of Care Provided Yes Laterality: Left - Lateral calf Type of Debridement: Excisional debridement Anesthesia Used: 5% Lidocaine Gel Depth: Down to and including healthy tissue, in the subcutaneous layer Percentage of wound debrided: 100 Instrument Used: 5mm curette Tissue Removed: Bioburden Severity: Fat Layer Exposed Amount of bleeding with debridement: Mild Bleeding Controlled with: Compression and gauze Patient tolerated procedure well Assessment/Plan Active Problems Leg swelling (Chronic) Leg edema (Chronic) Abscess of left leg (Chronic) Surgical wound present (Chronic) Chronic venous insufficiency (Chronic) Post-phlebitic dermatosis of both lower extremities (Chronic) Hyperpigmentation of skin (Chronic) Lipodermatosclerosis of both lower extremities (Chronic) Diallo phlebectatica (Chronic) Wound of left leg (Chronic) Necrosis (Chronic) Obesity (BMI 35.0-39.9 without comorbidity) (Chronic) Personal history of thrombophlebitis (Chronic) Tobacco abuse (Chronic) Tobacco abuse counseling (Chronic) Assessment: This is a 60-year-old male who presented elsewhere initially with a large abscess on the left lateral calf. He was hospitalized for approximately 5 days, and underwent incision and drainage of the abscess. He presented here for definitive management. At the time of his initial presentation, the patient was noted to have a large amount of frankly necrotic and nonviable tissue present at the site of his former abscess, with some tunneling as well. The patient also suffers from longstanding swelling and edema of his lower extremities, and is known to have a history of superficial thrombophlebitis in the left lower extremity previously. Physical findings suggest longstanding chronic venous insufficiency. The patient has undergone a battery of diagnostic testing. An x-ray of the left tibia/fibula shows soft tissue changes, but no other abnormalities. Laboratory results from 03/20/2020 are as follows: White blood count 6.0, hemoglobin 14.4, hematocrit 44.7, platelets 247,000, sodium 137, potassium 4.1, chloride 104, BUN 20, creatinine 0.76, glucose 127, calcium 9.1, total bilirubin 0.60, AST 14, ALT 31, alkaline phosphatase 57, total protein 7.6, albumin 4.1, prealbumin 29.2. Recently, a noninvasive lower extremity arterial study revealed no evidence of significant arterial occlusive disease in the lower extremities. A venous duplex examination revealed incompetence of the great saphenous veins bilaterally. At this juncture, the patient appears to be progressing well, though little change has been noted in his left lateral calf wound in the last several weeks. Previously, there had been progressive decrease in the size and depth of his wound. Undermining posteriorly is resolved. Prior wound cultures were positive for Staph aureus and strep species. Patient was placed on Augmentin 875 mg p.o. twice daily for a total of 10 days, which has now been completed. Plan: The patient has been advised to continue conservative treatment measures. These are to include leg elevation. He is to continue sleeping on a flat mattress at night. His legs are to be elevated to heart level, or higher, even during daytime hours. This is to be implemented as much as possible. The patient has been advised to refrain from prolonged, idle standing and sitting. Activity has been encouraged. Implementation of the calf and foot muscle pumps has been explained. Weight loss is also been recommended. The patient has obtained graduated compression stockings of 20 to 30 mmHg compression. While the patient's willing compliance may be adequate, he does work long hours each day at the local [employer], which results in long hours of lower extremity dependency, thus enhancing venous hypertension. There is continued concern as to the patient's occupation and the demands for prolonged idle sitting, which is thought to be a contributing factor to the patient's lack of progress. This has been discussed with the patient repeatedly. We have recently obtained approval for the use of the Snap VAC for implementation of negative pressure wound therapy. This was implemented last week, and will be continued. The patient is to use a SurePress compression wrap, which he will apply on a daily basis, with instructions to avoid placing the tubing under the compression wrap itself. In this way, we will avoid pressure phenomenon. We are to apply Promogran topically to the wound on the left lateral calf with each weekly visit. Approval for the use of EpiFix and PuraPly was sought, but denied by the patient's insurance company. The patient is to return in 1 week for reassessment. Once again, we have reinforced the need for compression, elevation, avoidance of prolonged idle sitting, etc. We will continue to monitor the patient's wound serially, and to assess the patient's progress. The patient's wound cultures were positive for Staph aureus and strep species, and the patient has completed a course of Augmentin 875 mg p.o. twice daily for a total of 10 days. Patient smokes approximately 1/2 pack of cigarettes per day, and has been advised to refrain from his smoking habit. Influenza vaccine was not administered today. Patient stands 5 feet 10 inches tall. He weighs 246 pounds. His BMI is 35.3, which places him in a class II obesity category. Weight loss has been recommended, and collaboration with the patient's primary care physician has been advised. Total time: 28 minutes.
[2020-12-23 07:47] VITALS: BP 172/83; PULSE 91; RESP 18; TEMP 36.6; BMI 35.3
--- NOTE | 2020-12-23 08:17 | HP.PCM_ITS ---
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 Code(s): I87.093 - Postthrombotic syndrome with other complications of bilateral lower extremity (7) Hyperpigmentation of skin Status: Chronic Code(s): L81.9 - Disorder of pigmentation, unspecified (8) Lipodermatosclerosis of both lower extremities Status: Chronic Code(s): I83.11 - Varicose veins of right lower extremity with inflammation; I83.12 - Varicose veins of left lower extremity with inflammation (9) Diallo phlebectatica Status: Chronic (10) Wound of left leg Status: Chronic Qualifiers: Code(s): S81.802A - Unspecified open wound, left lower leg, initial encounter (11) Necrosis Status: Chronic Code(s): I96 - Gangrene, not elsewhere classified (12) Obesity (BMI 35.0-39.9 without comorbidity) Status: Chronic Code(s): E66.9 - Obesity, unspecified (13) Personal history of thrombophlebitis Status: Chronic Code(s): Z86.72 - Personal history of thrombophlebitis (14) Tobacco abuse Status: Chronic Code(s): Z72.0 - Tobacco use (15) Tobacco abuse counseling Status: Chronic Code(s): Z71.6 - Tobacco abuse counseling History of Present Illness Date of Service: 12/23/20 Chief Complaint: Open wound of the left lateral calf, status-post incision and d rainage of abscess History of Wound: This is a 60-year-old male who was admitted to [facility] approximately 1 month prior to presentation with a large abscess on the left lateral calf. On February 11, 2020, he underwent incision and drainage of the abscess. He spent approximately 5 days in the hospital, and was subsequently discharged on Augmentin. The patient claims to sleep on a flat mattress at night. However, he suffers from chronic swelling and edema in both lower extremities. Additionally, he has a history of superficial thrombophlebitis in the left lower extremity, and has undergone a prior left lower extremity vein stripping procedure in the remote past. Patient has developed chronic skin changes in his lower extremities, which include hype rpigmentation and lipodermatosclerosis in the gaiter areas bilaterally. Patient is also noted to have diallo phlebectatica at ankle level bilaterally. The patient claims to be relatively active. Management the time of presentation included the use of a wet-to-dry gauze packing daily. It is noted that patient underwent a venous duplex examination during his hospitalization recently, that was negative for any evidence of thrombosis, but indicated valvular incompetence of the deep and superficial venous systems bilaterally. Past Medical History Past Medical History: Chronic Problems Leg swelling (Chronic) Leg edema (Chronic) Abscess of left leg (Chronic) Surgical wound present (Chronic) Chronic venous insufficiency (Chronic) Post-phlebitic dermatosis of both lower extremities (Chronic) Hyperpigmentation of skin (Chronic) Lipodermatosclerosis of both lower extremities (Chronic) Diallo phlebectatica (Chronic) Wound of left leg (Chronic) Necrosis (Chronic) Obesity (BMI 35.0-39.9 without comorbidity) (Chronic) Personal history of thrombophlebitis (Chronic) Tobacco abuse (Chronic) Tobacco abuse counseling (Chronic) Surgical History: - - Patient has previously undergone a left lower extremity vein stripping procedure in the remote past. Home Medications: Ambulatory Orders Medication Instructions Recorded Augmentin 875-125 Tablet 875 mg PO BID 03/18/20 Rosuvastatin Calcium [Crestor] 20 mg PO DAILY 03/18/20 - Family History Paternal - - Patient's father at the age of 72 with a history of cerebrovascular accident and venous disease. Patient's mother at the age of 90, of old age. Smoking Status: Light Smoker (<10/day) Tobacco Use: Cigarettes Review of Systems Constitutional: Denies: Chills, Fever, Weight Change Eyes: Denies: Pain, Vision Change HEENT: Denies: Difficulty Hearing, Difficulty Swallowing, Sinus Congestion Cardiovascular: Denies: Chest Pain, Palpitations Respiratory: Denies: Cough, Shortness of Breath Gastrointestinal: Denies: Diarrhea, Nausea, Vomiting Genitourinary: Denies: Dysuria, Hematuria Endocrine: Denies: Heat/ Cold Intolerance, Polydipsia, Polyuria Hematologic/ Lymphatic: Denies: Easy Bruising, Easy Bleeding - Physical Exam Vital Signs Temp Pulse Resp BP 97.8 F 91 18 172/83 H 12/23/20 07:47 12/23/20 07:47 12/23/20 07:47 12/23/20 07:47 General: Alert, Oriented x3, Cooperative, No apparent distress, Well developed, Well nourished HEENT: Atraumatic, PERRLA, EOMI, Normocephalic Oral: Moist Mucosa Neck: No JVD Lungs: Normal air movement Abdomen: Non-Distended Extremities: No clubbing, No cyanosis, No Calf Tenderness, - - Slight swelling and edema noted in the left lower extremity. Chronic hyperpigmentation is also noted. There are scattered large varicosities. Addt'l Wound Findings: The wound persists on the left lateral calf. It is little changed in size. Dimensions are documented elsewhere. There is no sign of infection or cellul itis. There is a small amount of bioburden. The base of the wound is generally pink and healthy in appearance. Wound Measurements and Assessment WC - Nurse 1 - General Ulcer Measurement Start: 12/02/20 07:44 Freq: Status: Active Protocol: Activity Type Activity Date Activity User E-Sign Co-Sign Detail Recorded Client Recorded Date Recorded By Document 12/23/20 07:47 PL [id number] 12/23/20 07:53 PL 12/23/20 07:47 Wound Center Nurse 1 [Ulcer Assessment] #1 Lateral LLE -Current Size (cm) - Length 2.2 -Current Size (cm) - Width 1.5 -Current Size (cm) - Depth 0.1 -Total Square Cm 3.30 -Photo Taken No -Epithelialization None Present -Tunneling No -Undermining/Tunneling No -Circular Undermining No -Exudate Amt Medium -Exudate Type Serosanguineous -Granulation Amt Medium (34-66%) -Granulation Quality [place] -Slough/Fibrin Yes -Necrosis Amt Medium (34-66%) -Necrotic Tissue Type Adherent Slough -Texture (Lois-wound Skin Appearance) No Abnormality -Moisture (Lois-wound Skin Appearance No Abnormality ) -Color (Lois-wound Skin Appearance) No Abnormality -Temperature (Lois-wound Skin No Abnormality Appearance) (Pt Warm) -Ulcer Cleansing Soap and water -Foul Odor after Cleansing No -Anesthetic Used 5% Lidocaine Gel Musculoskeletal: No Muscle Wasting Neurological: Cranial nerves II-XII grossly intact, Neuro grossly intact Psych/Mental Status: Normal Affect, Appropriate, Alert and oriented to time, place, person, mood and affect Debridement Note Post-Debridement Measurements/Treatment WC - Nurse 2 - General Ulcer CM Notes Start: 12/02/20 07:44 Freq: Status: Active Protocol: Activity Type Activity Date Activity User E-Sign Co-Sign Detail Recorded Client Recorded Date Recorded By Document 12/02/20 13:36 PL [id number] 12/02/20 13:38 PL Document 12/09/20 08:49 PL [id number] 12/09/20 08:51 PL Document 12/16/20 13:56 PL [id number] 12/16/20 13:57 PL 12/02/20 12/09/20 12/16/20 13:36 08:49 13:56 Wound Center Nurse 2 #1 Lateral LLE -Time 08:09 08:10 08:06 -Correct Patient Yes Yes Yes -Correct Side, Site, Position Yes Yes Yes -Correct Procedure Yes Yes Yes -Procedure Performed Yes Yes Yes -Type of Procedure Debridement Debridement Debridement -Clinical Debridement Subcutaneous Subcutaneous Subcutaneous -Tissue Removed Subcutaneous Subcutaneous Subcutaneous -Post Debridement (cm) - Length 2 1.9 1.5 -Post Debridement (cm) - Width 1.8 1.8 1.0 -Post Debridement (cm) - Depth 0.2 0.2 0.1 -Total Square (Post) (cm) 3.6 3.42 1.50 -Area of Debridement (cm) - Length 2.0 1.9 1.5 -Area of Debridement (cm) - Width 1.8 1.8 1.0 -Total Square (Area) (cm) 3.60 3.42 1.50 -Tunneling No No No -Undermining/Tunneling No No No -Circular Undermining No No No -Wound/Ulcer Outcome Not Healed Not Healed Not Healed -Ulcer Cleansing Rinsed/ Rinsed/ Rinsed/ Irrigated with Irrigated with Irrigated with Saline Saline Saline -Foul Odor after Cleansing No No No -Bioengineered Tissue No No No -Bleeding Controlled with Pressure Pressure -Treatment Response Procedure Procedure Tolerated Well Tolerated Well -Debridement - Subq, 1st 20sq cm Yes Yes Yes Pain Scale: 0-10 Numeric Is Patient Pain Free? Yes Yes Yes - Nurse 3 - General Ulcer D/C NN Start: 12/02/20 07:44 Freq: Status: Active Protocol: Activity Type Activity Date Activity User E-Sign Co-Sign Detail Recorded Client Recorded Date Recorded By Document 12/02/20 13:36 PL [id number] 12/02/20 13:38 PL Document 12/09/20 08:49 PL [id number] 12/09/20 08:51 PL Document 12/16/20 08:37 KR [id number] 12/16/20 08:42 KR 12/02/20 12/09/20 12/16/20 13:36 08:49 08:37 Pain Scale: 0-10 Numeric Is Patient Pain Free? Yes Yes Yes Wound Care Nurse 3 #1 Lateral LLE -Ulcer Cleansing Rinsed/ Rinsed/ Rinsed/ Irrigated with Irrigated with Irrigated with Saline Saline Saline -Foul Odor after Cleansing No No -Negative Pressure Wound Therapy Start Continue -Setting (mmHg) 125 125 -Negative Pressure is Continuous Continuous -Primary Dressing Applied Promogran -Other Dressing Promogran Promogran -Primary Dressing Covered/Secured with Dry Gauze, Secured with Tape -NPWT Application Charge ($) NPWT </= 50 sq NPWT </= 50 sq cm (disp) cm (disp) -Promogran 1 Left -Compression Wrap Surepress ($) WC - Visit Discharge Discharge Condition Stable Stable Stable Ambulatory Status Ambulatory Ambulatory Ambulatory Transportation Private Auto Private Auto Private Auto Clinical Summary of Care Provided Yes Laterality: Left - Lateral calf Type of Debridement: Excisional debridement Anesthesia Used: 5% Lidocaine Gel Depth: Down to and including healthy tissue, in the subcutaneous layer Percentage of wound debrided: 100 Instrument Used: 5mm curette Tissue Removed: Bioburden Severity: Fat Layer Exposed Amount of bleeding with debridement: Mild Bleeding Controlled with: Compression and gauze Patient tolerated procedure well Assessment/Plan Active Problems Leg swelling (Chronic) Leg edema (Chronic) Abscess of left leg (Chronic) Surgical wound present (Chronic) Chronic venous insufficiency (Chronic) Post-phlebitic dermatosis of both lower extremities (Chronic) Hyperpigmentation of skin (Chronic) Lipodermatosclerosis of both lower extremities (Chronic) Diallo phlebectatica (Chronic) Wound of left leg (Chronic) Necrosis (Chronic) Obesity (BMI 35.0-39.9 without comorbidity) (Chronic) Personal history of thrombophlebitis (Chronic) Tobacco abuse (Chronic) Tobacco abuse counseling (Chronic) Assessment: This is a 60-year-old male who presented elsewhere initially with a large abscess on the left lateral calf. He was hospitalized for approximately 5 days, and underwent incision and drainage of the abscess. He presented here for definitive management. At the time of his initial presentation, the patient was noted to have a large amount of frankly necrotic and nonviable tissue present at the site of his former abscess, with some tunneling as well. The patient also suffers from longstanding swelling and edema of his lower extremities, and is known to have a history of superficial thrombophlebitis in the left lower extremity previously. Physical findings suggest longstanding chronic venous insufficiency. The patient has undergone a battery of diagnostic testing. An x-ray of the left tibia/fibula shows soft tissue changes, but no other abnormalities. Laboratory results from 03/20/2020 are as follows: White blood count 6.0, hemoglobin 14.4, hematocrit 44.7, platelets 247,000, sodium 137, potassium 4.1, chloride 104, BUN 20, creatinine 0.76, glucose 127, calcium 9.1, total bilirubin 0.60, AST 14, ALT 31, alkaline phosphatase 57, total protein 7.6, albumin 4.1, prealbumin 29.2. Recently, a noninvasive lower extremity arterial study revealed no evidence of significant arterial occlusive disease in the lower extremities. A venous duplex examination revealed incompetence of the great saphenous veins bilaterally. At this juncture, the patient appears to be progressing well, though little change has been noted in his left lateral calf wound in the last several weeks. Previously, there had been progressive decrease in the size and depth of his wound. Undermining posteriorly is resolved. Prior wound cultures were positive for Staph aureus and strep species. Patient was placed on Augmentin 875 mg p.o. twice daily for a total of 10 days, which has been completed. Plan: The patient has been advised to continue conservative treatment measures. These are to include leg elevation. He is to continue sleeping on a flat mattress at night. His legs are to be elevated to heart level, or higher, even during daytime hours. This is to be implemented as much as possible. The patient has been advised to refrain from prolonged, idle standing and sitting. Activity has been encouraged. Implementation of the calf and foot muscle pumps has been explained. Weight loss is also been recommended. The patient has obtained graduated compression stockings of 20 to 30 mmHg compression. While the patient's willing compliance may be adequate, he does work long hours each day at the local [employer], which results in long hours of lower extremity dependency, thus enhancing venous hypertension. There is continued concern as to the patient's occupation and the demands for prolonged idle sitting, which is thought to be a contributing factor to the patient's lack of progress. This has been discussed with the patient repeatedly. We have recently obtained approval for the use of the Snap VAC for implementation of negative pressure wound therapy. This was implemented recently, and will be continued. The patient is to use a SurePress compression wrap, which he will apply on a daily basis, with instructions to avoid placing the tubing under the compression wrap itself. In this way, we will avoid pressure phenomenon. We are to continue Promogran topically to the wound on the left lateral calf with each weekly visit. Approval for the use of EpiFix and PuraPly was sought, but denied by the patient's insurance company. The patient is to return in 1 week for reassessment. Once again, we have reinforced the need for compression, elevation, avoidance of prolonged idle sitting, etc. We will continue to monitor the patient's wound serially, and to assess the patient's progress. The patient's wound cultures were positive for Staph aureus and strep species, and the patient has completed a course of Augmentin 875 mg p.o. twice daily for a total of 10 days. Patient smokes approximately 1/2 pack of cigarettes per day, and has been advised to refrain from his smoking habit. Influenza vaccine was not administered today. Patient stands 5 feet 10 inches tall. He weighs 246 pounds. His BMI is 35.3, which places him in a class II obesity category. Weight loss has been recommended, and collaboration with the patient's primary care physician has been advised. Total time: 28 minutes.
[2020-12-30 07:51] VITALS: BP 171/79; PULSE 73; RESP 18; TEMP 36.6; BMI 35.3
--- NOTE | 2020-12-30 08:23 | PCM.WC.HP ---
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 Code(s): I87.093 - Postthrombotic syndrome with other complications of bilateral lower extremity (7) Hyperpigmentation of skin Status: Chronic Code(s): L81.9 - Disorder of pigmentation, unspecified (8) Lipodermatosclerosis of both lower extremities Status: Chronic Code(s): I83.11 - Varicose veins of right lower extremity with inflammation; I83.12 - Varicose veins of left lower extremity with inflammation (9) Diallo phlebectatica Status: Chronic (10) Wound of left leg Status: Chronic Qualifiers: Code(s): S81.802A - Unspecified open wound, left lower leg, initial encounter (11) Necrosis Status: Chronic Code(s): I96 - Gangrene, not elsewhere classified (12) Obesity (BMI 35.0-39.9 without comorbidity) Status: Chronic Code(s): E66.9 - Obesity, unspecified (13) Personal history of thrombophlebitis Status: Chronic Code(s): Z86.72 - Personal history of thrombophlebitis (14) Tobacco abuse Status: Chronic Code(s): Z72.0 - Tobacco use (15) Tobacco abuse counseling Status: Chronic Code(s): Z71.6 - Tobacco abuse counseling History of Present Illness Date of Service: 12/30/20 Chief Complaint: Open wound of the left lateral calf, status-post incision and drainage of abscess History of Wound: This is a 60-year-old male who was admitted to [facility] approximately 1 month prior to presentation with a large abscess on the left lateral calf. On February 11, 2020, he underwent incision and drainage of the abscess. He spent approximately 5 days in the hospital, and was subsequently discharged on Augmentin. The patient claims to sleep on a flat mattress at night. However, he suffers from chronic swelling and edema in both lower extremities. Additionally, he has a history of superficial thrombophlebitis in the left lower extremity, and has undergone a prior left lower extremity vein stripping procedure in the remote past. Patient has developed chronic skin changes in his lower extremities, which include hyperpigmentation and lipodermatosclerosis in the gaiter areas bilaterally. Patient is also noted to have diallo phlebectatica at ankle level bilaterally. The patient claims to be relatively active. Management the time of presentation included the use of a wet-to-dry gauze packing daily. It is noted that patient underwent a venous duplex examination during his hospitalization recently, that was negative for any evidence of thrombosis, but indicated valvular incompetence of the deep and superficial venous systems bilaterally. Past Medical History Past Medical History: Chronic Problems Leg swelling (Chronic) Leg edema (Chronic) Abscess of left leg (Chronic) Surgical wound present (Chronic) Chronic venous insufficiency (Chronic) Post-phlebitic dermatosis of both lower extremities (Chronic) Hyperpigmentation of skin (Chronic) Lipodermatosclerosis of both lower extremities (Chronic) Diallo phlebectatica (Chronic) Wound of left leg (Chronic) Necrosis (Chronic) Obesity (BMI 35.0-39.9 without comorbidity) (Chronic) Personal history of thrombophlebitis (Chronic) Tobacco abuse (Chronic) Tobacco abuse counseling (Chronic) Surgical History: - - Patient has previously undergone a left lower extremity vein stripping procedure in the remote past. Home Medications: Ambulatory Orders Medication Instructions Recorded Augmentin 875-125 Tablet 875 mg PO BID 03/18/20 Rosuvastatin Calcium [Crestor] 20 mg PO DAILY 03/18/20 - Family History Paternal - - Patient's father at the age of 72 with a history of cerebrovascular accident and venous disease. Patient's mother at the age of 90, of old age. Smoking Status: Light Smoker (<10/day) Tobacco Use: Cigarettes Review of Systems Constitutional: Denies: Chills, Fever, Weight Change Eyes: Denies: Pain, Vision Change HEENT: Denies: Difficulty Hearing, Difficulty Swallowing, Sinus Congestion Cardiovascular: Denies: Chest Pain, Palpitations Respiratory: Denies: Cough, Shortness of Breath Gastrointestinal: Denies: Diarrhea, Nausea, Vomiting Genitourinary: Denies: Dysuria, Hematuria Endocrine: Denies: Heat/ Cold Intolerance, Polydipsia, Polyuria Hematologic/ Lymphatic: Denies: Easy Bruising, Easy Bleeding - Physical Exam Vital Signs Temp Pulse Resp BP 97.8 F 73 18 171/79 H 12/30/20 07:51 12/30/20 07:51 12/30/20 07:51 12/30/20 07:51 General: Alert, Oriented x3, Cooperative, No apparent distress, Well developed, Well nourished HEENT: Atraumatic, PERRLA, EOMI, Normocephalic Oral: Moist Mucosa Neck: No JVD Lungs: Normal air movement Abdomen: Non-Distended Extremities: No clubbing, No cyanosis, No Calf Tenderness, - - Slight swelling is noted in the left lower extremity. Chronic skin changes are noted, namely hyperpigmentation and lipodermatosclerosis in the left lower extremity. Multiple large varicosities are also noted. Addt'l Wound Findings: The wound on the left lateral calf persists. It is little changed in size. Dimensions are documented elsewhere. There is no sign of infection or cellulitis. The base of the wound is generally pink and healthy in appearance, with a moderate amount of bioburden. Wound margins appear to be increasingly more beveled. Wound Measurements and Assessment WC - Nurse 1 - General Ulcer Measurement Start: 12/02/20 07:44 Freq: Status: Active Protocol: Activity Type Activity Date Activity User E-Sign Co-Sign Detail Recorded Client Recorded Date Recorded By Document 12/30/20 07:51 PL [id number] 12/30/20 07:54 PL 12/30/20 07:51 Wound Center Nurse 1 [Ulcer Assessment] #1 Lateral LLE -Combined with other wound No -Current Size (cm) - Length 2.7 -Current Size (cm) - Width 2.1 -Current Size (cm) - Depth 0.2 -Total Square Cm 5.67 -Photo Taken No -Epithelialization None Present -Granulation Amt Medium (34-66%) -Granulation Quality Pale,[place] -Slough/Fibrin Yes -Necrosis Amt Medium (34-66%) -Necrotic Tissue Type Adherent Slough -Texture (Lois-wound Skin Appearance) No Abnormality -Moisture (Lois-wound Skin Appearance No Abnormality ) -Color (Lois-wound Skin Appearance) No Abnormality -Temperature (Lois-wound Skin No Abnormality Appearance) (Pt Warm) -Tenderness on Palpation (Lois-wound No Skin Appearance) -Ulcer Cleansing Rinsed/ Irrigated with Saline -Foul Odor after Cleansing No -Anesthetic Used 4% Lidocaine Solution Musculoskeletal: No Muscle Wasting Neurological: Cranial nerves II-XII grossly intact, Neuro grossly intact Psych/Mental Status: Normal Affect, Appropriate, Alert and oriented to time, place, person, mood and affect Debridement Note Post-Debridement Measurements/Treatment WC - Nurse 2 - General Ulcer CM Notes Start: 12/02/20 07:44 Freq: Status: Active Protocol: Activity Type Activity Date Activity User E-Sign Co-Sign Detail Recorded Client Recorded Date Recorded By Document 12/02/20 13:36 PL [id number] 12/02/20 13:38 PL Document 12/09/20 08:49 PL [id number] 12/09/20 08:51 PL Document 12/16/20 13:56 PL [id number] 12/16/20 13:57 PL Document 12/23/20 09:31 PL [id number] 12/23/20 09:32 PL 12/02/20 12/09/20 12/16/20 13:36 08:49 13:56 Wound Center Nurse 2 #1 Lateral LLE -Time 08:09 08:10 08:06 -Correct Patient Yes Yes Yes -Correct Side, Site, Position Yes Yes Yes -Correct Procedure Yes Yes Yes -Procedure Performed Yes Yes Yes -Type of Procedure Debridement Debridement Debridement -Clinical Debridement Subcutaneous Subcutaneous Subcutaneous -Tissue Removed Subcutaneous Subcutaneous Subcutaneous -Post Debridement (cm) - Length 2 1.9 1.5 -Post Debridement (cm) - Width 1.8 1.8 1.0 -Post Debridement (cm) - Depth 0.2 0.2 0.1 -Total Square (Post) (cm) 3.6 3.42 1.50 -Area of Debridement (cm) - Length 2.0 1.9 1.5 -Area of Debridement (cm) - Width 1.8 1.8 1.0 -Total Square (Area) (cm) 3.60 3.42 1.50 -Tunneling No No No -Undermining/Tunneling No No No -Circular Undermining No No No -Wound/Ulcer Outcome Not Healed Not Healed Not Healed -Ulcer Cleansing Rinsed/ Rinsed/ Rinsed/ Irrigated with Irrigated with Irrigated with Saline Saline Saline -Foul Odor after Cleansing No No No -Bioengineered Tissue No No No -Bleeding Controlled with Pressure Pressure -Treatment Response Procedure Procedure Tolerated Well Tolerated Well -Debridement - Subq, 1st 20sq cm Yes Yes Yes Pain Scale: 0-10 Numeric Is Patient Pain Free? Yes Yes Yes 12/23/20 09:31 Wound Center Nurse 2 #1 Lateral LLE -Time 08:05 -Correct Patient Yes -Correct Side, Site, Position Yes -Correct Procedure Yes -Procedure Performed Yes -Type of Procedure Debridement -Clinical Debridement Subcutaneous -Tissue Removed Subcutaneous -Post Debridement (cm) - Length 1.0 -Post Debridement (cm) - Width 1.5 -Post Debridement (cm) - Depth 0.1 -Total Square (Post) (cm) 1.50 -Area of Debridement (cm) - Length 1.0 -Area of Debridement (cm) - Width 1.5 -Total Square (Area) (cm) 1.50 -Tunneling No -Undermining/Tunneling No -Circular Undermining No -Wound/Ulcer Outcome Not Healed -Ulcer Cleansing Rinsed/ Irrigated with Saline -Foul Odor after Cleansing No -Bioengineered Tissue No -Bleeding Controlled with -Treatment Response -Debridement - Subq, 1st 20sq cm Yes Pain Scale: 0-10 Numeric Is Patient Pain Free? Yes - Nurse 3 - General Ulcer D/C NN Start: 12/02/20 07:44 Freq: Status: Active Protocol: Activity Type Activity Date Activity User E-Sign Co-Sign Detail Recorded Client Recorded Date Recorded By Document 12/02/20 13:36 PL [id number] 12/02/20 13:38 PL Document 12/09/20 08:49 PL [id number] 12/09/20 08:51 PL Document 12/16/20 08:37 KR [id number] 12/16/20 08:42 KR Document 12/23/20 08:23 BMF [id number] 12/23/20 08:25 BMF 12/02/20 12/09/20 12/16/20 13:36 08:49 08:37 Pain Scale: 0-10 Numeric Is Patient Pain Free? Yes Yes Yes Wound Care Nurse 3 #1 Lateral LLE -Ulcer Cleansing Rinsed/ Rinsed/ Rinsed/ Irrigated with Irrigated with Irrigated with Saline Saline Saline -Foul Odor after Cleansing No No -Negative Pressure Wound Therapy Start Continue -Setting (mmHg) 125 125 -Negative Pressure is Continuous Continuous -Primary Dressing Applied Promogran -Other Dressing Promogran Promogran -Primary Dressing Covered/Secured with Dry Gauze, Secured with Tape -NPWT Application Charge ($) NPWT </= 50 sq NPWT </= 50 sq cm (disp) cm (disp) -Promogran 1 Left -Compression Wrap Surepress ($) Treatment Response WC - Visit Discharge Discharge Condition Stable Stable Stable Ambulatory Status Ambulatory Ambulatory Ambulatory Transportation Private [employer] Auto Clinical Summary of Care Provided Yes 12/23/20 08:23 Pain Scale: 0-10 Numeric Is Patient Pain Free? Yes Wound Care Nurse 3 #1 Lateral LLE -Ulcer Cleansing Rinsed/ Irrigated with Saline -Foul Odor after Cleansing No -Negative Pressure Wound Therapy Continue -Setting (mmHg) 125 -Negative Pressure is Continuous -Primary Dressing Applied -Other Dressing len geronimo rn -Primary Dressing Covered/Secured with -NPWT Application Charge ($) NPWT </= 50 sq cm (disp) -Promogran Left -Compression Wrap Surepress ($) Treatment Response Procedure Tolerated Well WC - Visit Discharge Discharge Condition Stable Ambulatory Status Ambulatory Transportation Private [employer] Clinical Summary of Care Provided Laterality: Left - Lateral calf Type of Debridement: Excisional debridement Anesthesia Used: 5% Lidocaine Gel Depth: Down to and including healthy tissue, in the subcutaneous layer Percentage of wound debrided: 100 Instrument Used: 5mm curette Tissue Removed: Bioburden Severity: Fat Layer Exposed Amount of bleeding with debridement: Mild Bleeding Controlled with: Compression and gauze Patient tolerated procedure well Assessment/Plan Active Problems Leg swelling (Chronic) Leg edema (Chronic) Abscess of left leg (Chronic) Surgical wound present (Chronic) Chronic venous insufficiency (Chronic) Post-phlebitic dermatosis of both lower extremities (Chronic) Hyperpigmentation of skin (Chronic) Lipodermatosclerosis of both lower extremities (Chronic) Diallo phlebectatica (Chronic) Wound of left leg (Chronic) Necrosis (Chronic) Obesity (BMI 35.0-39.9 without comorbidity) (Chronic) Personal history of thrombophlebitis (Chronic) Tobacco abuse (Chronic) Tobacco abuse counseling (Chronic) Assessment: This is a 60-year-old male who presented elsewhere initially with a large abscess on the left lateral calf. He was hospitalized for approximately 5 days, and underwent incision and drainage of the abscess. He presented here for definitive management. At the time of his initial presentation, the patient was noted to have a large amount of frankly necrotic and nonviable tissue present at the site of his former abscess, with some tunneling as well. The patient also suffers from longstanding swelling and edema of his lower extremities, and is known to have a history of superficial thrombophlebitis in the left lower extremity previously. Physical findings suggest longstanding chronic venous insufficiency. The patient has undergone a battery of diagnostic testing. An x-ray of the left tibia/fibula shows soft tissue changes, but no other abnormalities. Laboratory results from 03/20/2020 are as follows: White blood count 6.0, hemoglobin 14.4, hematocrit 44.7, platelets 247,000, sodium 137, potassium 4.1, chloride 104, BUN 20, creatinine 0.76, glucose 127, calcium 9.1, total bilirubin 0.60, AST 14, ALT 31, alkaline phosphatase 57, total protein 7.6, albumin 4.1, prealbumin 29.2. Recently, a noninvasive lower extremity arterial study revealed no evidence of significant arterial occlusive disease in the lower extremities. A venous duplex examination revealed incompetence of the great saphenous veins bilaterally. At this juncture, the patient appears to be progressing well, though little change has been noted in his left lateral calf wound in the last several weeks. Previously, there had been progressive decrease in the size and depth of his wound. Undermining posteriorly is resolved. Prior wound cultures were positive for Staph aureus and strep species. Patient was placed on Augmentin 875 mg p.o. twice daily for a total of 10 days, which has been completed. Plan: The patient has been advised to continue conservative treatment measures. These are to include leg elevation. He is to continue sleeping on a flat mattress at night. His legs are to be elevated to heart level, or higher, even during daytime hours. This is to be implemented as much as possible. The patient has been advised to refrain from prolonged, idle standing and sitting. Activity has been encouraged. Implementation of the calf and foot muscle pumps has been explained. Weight loss is also been recommended. The patient has obtained graduated compression stockings of 20 to 30 mmHg compression. While the patient's willing compliance may be adequate, he does work long hours each day at the local [employer], which results in long hours of lower extremity dependency, thus enhancing venous hypertension. There is continued concern as to the patient's occupation and the demands for prolonged idle sitting, which is thought to be a contributing factor to the patient's lack of progress. This has been discussed with the patient repeatedly. We have recently obtained approval for the use of the Snap VAC for implementation of negative pressure wound therapy. This was implemented recently, and will be continued. The patient is to use a SurePress compression wrap, which he will apply on a daily basis, with instructions to avoid placing the tubing under the compression wrap itself. In this way, we will avoid pressure phenomenon. We are to utilize Siena topically to the wound on the left lateral calf with each weekly visit. Approval for the use of EpiFix and PuraPly was sought, but denied by the patient's insurance company. The patient is to return in 1 week for reassessment. Once again, we have reinforced the need for compression, elevation, avoidance of prolonged idle sitting, etc. We will continue to monitor the patient's wound serially, and to assess the patient's progress. The patient's wound cultures were positive for Staph aureus and strep species, and the patient has completed a course of Augmentin 875 mg p.o. twice daily for a total of 10 days. Patient smokes approximately 1/2 pack of cigarettes per day, and has been advised to refrain from his smoking habit. Influenza vaccine was not administered today. Patient stands 5 feet 10 inches tall. He weighs 246 pounds. His BMI is 35.3, which places him in a class II obesity category. Weight loss has been recommended, and collaboration with the patient's primary care physician has been advised. Total time: 24 minutes.
== END 2020-12-31 23:59 ==
LOC: WC 07:45
PROVIDERS: PCP Family Medicine; Referring Provider Surgery; Visit Provider Surgery
DX: I83.222 Varicose veins of left lower extremity with both ulcer of calf and inflammation (principal); I83.11 Varicose veins of right lower extremity with inflammation; R60.0 Localized edema; L97.222 Non-pressure chronic ulcer of left calf with fat layer exposed; E66.9 Obesity, unspecified; M79.89 Other specified soft tissue disorders; F17.210 Nicotine dependence, cigarettes, uncomplicated; Z68.35 Body mass index [BMI] 35.0-35.9, adult; Z79.899 Other long term (current) drug therapy
CPT/HCPCS: 11042; 97605; 97607

== ENCOUNTER 2021-01-27 07:45 | Outpatient (RCR) | payer OTHER, SELFPAY ==
[2021-01-01 00:30] VITALS: BP 171/79; PULSE 73; RESP 18; TEMP 36.6
[2021-01-06 07:38] VITALS: BP 145/87; PULSE 89; RESP 18; TEMP 36.4; BMI 35.3
--- NOTE | 2021-01-06 08:50 | HP.PCM_ITS ---
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 Code(s): I87.093 - Postthrombotic syndrome with other complications of bilateral lower extremity (7) Hyperpigmentation of skin Status: Chronic Code(s): L81.9 - Disorder of pigmentation, unspecified (8) Lipodermatosclerosis of both lower extremities Status: Chronic Code(s): I83.11 - Varicose veins of right lower extremity with inflammation; I83.12 - Varicose veins of left lower extremity with inflammation (9) Diallo phlebectatica Status: Chronic (10) Wound of left leg Status: Chronic Qualifiers: Code(s): S81.802A - Unspecified open wound, left lower leg, initial encounter (11) Necrosis Status: Chronic Code(s): I96 - Gangrene, not elsewhere classified (12) Obesity (BMI 35.0-39.9 without comorbidity) Status: Chronic Code(s): E66.9 - Obesity, unspecified (13) Personal history of thrombophlebitis Status: Chronic Code(s): Z86.72 - Personal history of thrombophlebitis (14) Tobacco abuse Status: Chronic Code(s): Z72.0 - Tobacco use (15) Tobacco abuse counseling Status: Chronic Code(s): Z71.6 - Tobacco abuse counseling History of Present Illness Date of Service: 01/06/21 Chief Complaint: Open wound of the left lateral calf, status-post incision and d rainage of abscess History of Wound: This is a 60-year-old male who was admitted to [facility] approximately 1 month prior to presentation with a large abscess on the left lateral calf. On February 11, 2020, he underwent incision and drainage of the abscess. He spent approximately 5 days in the hospital, and was subsequently discharged on Augmentin. The patient claims to sleep on a flat mattress at night. However, he suffers from chronic swelling and edema in both lower extremities. Additionally, he has a history of superficial thrombophlebitis in the left lower extremity, and has undergone a prior left lower extremity vein stripping procedure in the remote past. Patient has developed chronic skin changes in his lower extremities, which include hype rpigmentation and lipodermatosclerosis in the gaiter areas bilaterally. Patient is also noted to have diallo phlebectatica at ankle level bilaterally. The patient claims to be relatively active. Management the time of presentation included the use of a wet-to-dry gauze packing daily. It is noted that patient underwent a venous duplex examination during his hospitalization recently, that was negative for any evidence of thrombosis, but indicated valvular incompetence of the deep and superficial venous systems bilaterally. Past Medical History Past Medical History: Chronic Problems Leg swelling (Chronic) Leg edema (Chronic) Abscess of left leg (Chronic) Surgical wound present (Chronic) Chronic venous insufficiency (Chronic) Post-phlebitic dermatosis of both lower extremities (Chronic) Hyperpigmentation of skin (Chronic) Lipodermatosclerosis of both lower extremities (Chronic) Diallo phlebectatica (Chronic) Wound of left leg (Chronic) Necrosis (Chronic) Obesity (BMI 35.0-39.9 without comorbidity) (Chronic) Personal history of thrombophlebitis (Chronic) Tobacco abuse (Chronic) Tobacco abuse counseling (Chronic) Surgical History: - - Patient has previously undergone a left lower extremity vein stripping procedure in the remote past. Home Medications: Ambulatory Orders Medication Instructions Recorded Augmentin 875-125 Tablet 875 mg PO BID 03/18/20 Rosuvastatin Calcium [Crestor] 20 mg PO DAILY 03/18/20 - Family History Paternal - - Patient's father at the age of 72 with a history of cerebrovascular accident and venous disease. Patient's mother at the age of 90, of old age. Smoking Status: Light Smoker (<10/day) Tobacco Use: Cigarettes Review of Systems Constitutional: Denies: Chills, Fever, Weight Change Eyes: Denies: Pain, Vision Change HEENT: Denies: Difficulty Hearing, Difficulty Swallowing, Sinus Congestion Cardiovascular: Denies: Chest Pain, Palpitations Respiratory: Denies: Cough, Shortness of Breath Gastrointestinal: Denies: Diarrhea, Nausea, Vomiting Genitourinary: Denies: Dysuria, Hematuria Endocrine: Denies: Heat/ Cold Intolerance, Polydipsia, Polyuria Hematologic/ Lymphatic: Denies: Easy Bruising, Easy Bleeding - Physical Exam Vital Signs Temp Pulse Resp BP 97.6 F L 89 18 145/87 H 01/06/21 07:38 01/06/21 07:38 01/06/21 07:38 01/06/21 07:38 General: Alert, Oriented x3, Cooperative, No apparent distress, Well developed, Well nourished HEENT: Atraumatic, PERRLA, EOMI, Normocephalic Oral: Moist Mucosa Neck: No JVD Lungs: Normal air movement Abdomen: Non-Distended Extremities: No clubbing, No cyanosis, No Calf Tenderness, - - Chronic skin changes are noted in the left lower extremity. These include hyperpigmentation and lipodermatosclerosis. Multiple large, distended varicose veins are also noted in the left lower extremity. Addt'l Wound Findings: The wound on the left lateral calf persists. It is little changed in size or appearance. The periwound skin appears to be somewhat edematous. The wound has been cultured by swab today, for both aerobic and anaerobic bacterial growth. There is a moderate amount of bioburden. Wound Measurements and Assessment WC - Nurse 1 - General Ulcer Measurement Start: 01/06/21 07:38 Freq: Status: Active Protocol: Activity Type Activity Date Activity User E-Sign Co-Sign Detail Recorded Client Recorded Date Recorded By Document 01/06/21 07:38 PL [id number] 01/06/21 07:48 PL 01/06/21 07:38 Wound Center Nurse 1 [Ulcer Assessment] #1 Lateral LLE -Current Size (cm) - Length 2.7 -Current Size (cm) - Width 2.2 -Current Size (cm) - Depth 0.3 -Total Square Cm 5.94 -Photo Taken No -Epithelialization Small 1-33% -Tunneling No -Undermining/Tunneling No -Circular Undermining No -Exudate Amt Medium -Exudate Type Serosanguineous -Granulation Amt Medium (34-66%) -Granulation Quality [place],Red -Slough/Fibrin Yes -Necrosis Amt Medium (34-66%) -Ulcer Cleansing Soap and water -Foul Odor after Cleansing No -Anesthetic Used 4% Lidocaine Solution Musculoskeletal: No Muscle Wasting Neurological: Cranial nerves II-XII grossly intact, Neuro grossly intact Psych/Mental Status: Normal Affect, Appropriate, Alert and oriented to time, place, person, mood and affect Debridement Note Laterality: Left - Lateral calf Type of Debridement: Excisional debridement Anesthesia Used: 5% Lidocaine Gel Depth: Down to and including healthy tissue, in the subcutaneous layer Percentage of wound debrided: 100 Instrument Used: 5mm curette Tissue Removed: Bioburden Severity: Fat Layer Exposed Amount of bleeding with debridement: Mild Bleeding Controlled with: Compression and gauze Patient tolerated procedure well Swab cultures have been obtained today for both aerobic and anaerobic bacterial growth. Assessment/Plan Assessment: This is a 60-year-old male who presented elsewhere initially with a large abscess on the left lateral calf. He was hospitalized for approximately 5 days, and underwent incision and drainage of the abscess. He presented here for definitive management. At the time of his initial presentation, the patient was noted to have a large amount of frankly necrotic and nonviable tissue present at the site of his former abscess, with some tunneling as well. The patient also suffers from longstanding swelling and edema of his lower extremities, and is known to have a history of superficial thrombophlebitis in the left lower extremity previously. Physical findings suggest longstanding chronic venous insufficiency. The patient has undergone a battery of diagnostic testing. An x-ray of the left tibia/fibula shows soft tissue changes, but no other abnormalities. Laboratory results from 03/20/2020 are as follows: White blood count 6.0, hemoglobin 14.4, hematocrit 44.7, platelets 247,000, sodium 137, potassium 4.1, chloride 104, BUN 20, creatinine 0.76, glucose 127, calcium 9.1, total bilirubin 0.60, AST 14, ALT 31, alkaline phosphatase 57, total protein 7.6, albumin 4.1, prealbumin 29.2. Recently, a noninvasive lower extremity arterial study revealed no evidence of significant arterial occlusive disease in the lower extremities. A venous duplex examination revealed incompetence of the great saphenous veins bilaterally. At this juncture, the patient appears to be progressing well, though little change has been noted in his left lateral calf wound in the last several weeks. Previously, there had been progressive decrease in the size and depth of his wound. Undermining posteriorly is resolved. Prior wound cultures were positive for Staph aureus and strep species. The patient was placed on Augmentin 875 mg p.o. twice daily for a total of 10 days, which has been completed. Plan: The patient has been advised to continue conservative treatment measures. These are to include leg elevation. He is to continue sleeping on a flat mattress at night. His legs are to be elevated to heart level, or higher, even during daytime hours. This is to be implemented as much as possible. The patient has been advised to refrain from prolonged, idle standing and sitting. Activity has been encouraged. Implementation of the calf and foot muscle pumps has been explained. Weight loss is also been recommended. The patient has obtained graduated compression stockings of 20 to 30 mmHg compression. While the patient's willing compliance may be adequate, he does work long hours each day at the local [employer], which results in long hours of lower extremity dependency, thus enhancing venous hypertension. There is continued concern as to the patient's occupation and the demands for prolonged idle sitting, which is thought to be a contributing factor to the patient's lack of progress. This has been discussed with the patient repeatedly. He admits to often working up to 82 hours/week. In his own words, the patient admits that his work schedule is excessive. We have recently obtained approval for the use of the Snap VAC for implementation of negative pressure wound therapy. This was implemented recently, and will be continued. The patient is to use a SurePress compression wrap, which he will apply on a daily basis, with instructions to avoid placing the tubing under the compression wrap itself. In this way, we will avoid pressure phenomenon. We are to continue [place] topically to the wound on the left lateral calf with each weekly visit. Approval for the use of EpiFix and PuraPly was sought, but denied by the patient's insurance company. The patient is to return in 1-2 weeks for reassessment. Once again, we have reinforced the need for compression, elevation, avoidance of prolonged idle sitting, etc. We will continue to monitor the patient's wound serially, and to assess the patient's progress. The patient's wound cultures were positive for Staph aureus and strep species, and the patient has completed a course of Augmentin 875 mg p.o. twice daily for a total of 10 days. We have repeated the cultures of the patient's wound, and will await results. Additionally, due to the persisting swelling, edema, and lymphedema in the patient's left lower extremity, as well as venous hypertension, we are to seek preauthorization for the use of pneumatic mechanical compression pumps to the lower extremities. It is felt that this measure will help lyse the swelling in the soft tissues of the distal left lower extremity, and will enhance the progression of healing. Patient smokes approximately 1/2 pack of cigarettes per day, and has been advised to refrain from his smoking habit. Influenza vaccine was not administered today. Patient stands 5 feet 10 inches tall. He weighs 246 pounds. His BMI is 35.3, which places him in a class II obesity category. W eight loss has been recommended, and collaboration with the patient's primary care physician has been advised. Total time: 24 minutes.
--- NOTE | 2021-01-08 13:17 | WC ---
Prescription for Levofloxacin 750mg PO QD X 10days ) refills was called into [facility]. Pt was notified and instruct on how to take the medication. Pt verbalized understanding
--- NOTE | 2021-01-12 11:41 | WC ---
Prescription for Clindamycin 450mg PO TID X 7days Disp 21 was called in [facility]. PT was notified and instructed on taking the medication and advised to take medication with Yogurt or a Probiotic. Pt verbalized understanding
[2021-01-13 08:19] VITALS: BP 143/85; PULSE 85; RESP 18; TEMP 36.3; BMI 35.3
[2021-01-20 07:51] VITALS: BP 139/82; PULSE 87; RESP 18; TEMP 36.6; BMI 35.3
--- NOTE | 2021-01-20 08:16 | HP.PCM_ITS ---
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 Code(s): I87.093 - Postthrombotic syndrome with other complications of bilateral lower extremity (7) Hyperpigmentation of skin Status: Chronic Code(s): L81.9 - Disorder of pigmentation, unspecified (8) Lipodermatosclerosis of both lower extremities Status: Chronic Code(s): I83.11 - Varicose veins of right lower extremity with inflammation; I83.12 - Varicose veins of left lower extremity with inflammation (9) Diallo phlebectatica Status: Chronic (10) Wound of left leg Status: Chronic Qualifiers: Code(s): S81.802A - Unspecified open wound, left lower leg, initial encounter (11) Necrosis Status: Chronic Code(s): I96 - Gangrene, not elsewhere classified (12) Obesity (BMI 35.0-39.9 without comorbidity) Status: Chronic Code(s): E66.9 - Obesity, unspecified (13) Personal history of thrombophlebitis Status: Chronic Code(s): Z86.72 - Personal history of thrombophlebitis (14) Tobacco abuse Status: Chronic Code(s): Z72.0 - Tobacco use (15) Tobacco abuse counseling Status: Chronic Code(s): Z71.6 - Tobacco abuse counseling (16) Lymphedema of left leg Status: Chronic Code(s): I89.0 - Lymphedema, not elsewhere classified History of Present Illness Date of Service: 01/20/21 Chief Complaint: Open wound of the left lateral calf, status-post incision and drainage of abscess History of Wound: This is a 60-year-old male who was admitted to [facility] approximately 1 month prior to presentation with a large abscess on the left lateral calf. On February 11, 2020, he underwent incision and drainage of the abscess. He spent approximately 5 days in the hospital, and was subsequently discharged on Augmentin. The patient claims to sleep on a flat mattress at night. However, he suffers from chronic swelling and edema in both lower extremities. Additionally, he has a history of superficial thrombophlebitis in the left lower extremity, and has undergone a prior left lower extremity vein stripping procedure in the remote past. Patient has developed chronic skin changes in his lower extremities, which include hyperpigmentation and lipodermatosclerosis in the gaiter areas bilaterally. Patient is also noted to have diallo phlebectatica at ankle level bilaterally. The patient claims to be relatively active. Management the time of presentation included the use of a wet-to-dry gauze packing daily. It is noted that patient underwent a venous duplex examination during his hospitalization recently, that was negative for any evidence of thrombosis, but indicated valvular incompetence of the deep and superficial venous systems bilaterally. Past Medical History Past Medical History: Chronic Problems Leg swelling (Chronic) Leg edema (Chronic) Abscess of left leg (Chronic) Surgical wound present (Chronic) Chronic venous insufficiency (Chronic) Post-phlebitic dermatosis of both lower extremities (Chronic) Hyperpigmentation of skin (Chronic) Lipodermatosclerosis of both lower extremities (Chronic) Diallo phlebectatica (Chronic) Wound of left leg (Chronic) Necrosis (Chronic) Obesity (BMI 35.0-39.9 without comorbidity) (Chronic) Personal history of thrombophlebitis (Chronic) Tobacco abuse (Chronic) Tobacco abuse counseling (Chronic) Lymphedema of left leg (Chronic) Surgical History: - - Patient has previously undergone a left lower extremity vein stripping procedure in the remote past. Home Medications: Ambulatory Orders Medication Instructions Recorded Augmentin 875-125 Tablet 875 mg PO BID 03/18/20 Rosuvastatin Calcium [Crestor] 20 mg PO DAILY 03/18/20 - Family History Paternal - - Patient's father at the age of 72 with a history of cerebrovascular accident and venous disease. Patient's mother at the age of 90, of old age. Smoking Status: Light Smoker (<10/day) Tobacco Use: Cigarettes Review of Systems Constitutional: Denies: Chills, Fever, Weight Change Eyes: Denies: Pain, Vision Change HEENT: Denies: Difficulty Hearing, Difficulty Swallowing, Sinus Congestion Cardiovascular: Denies: Chest Pain, Palpitations Respiratory: Denies: Cough, Shortness of Breath Gastrointestinal: Denies: Diarrhea, Nausea, Vomiting Genitourinary: Denies: Dysuria, Hematuria Endocrine: Denies: Heat/ Cold Intolerance, Polydipsia, Polyuria Hematologic/ Lymphatic: Denies: Easy Bruising, Easy Bleeding - Physical Exam Vital Signs Temp Pulse Resp BP 97.8 F 87 18 139/82 H 01/20/21 07:51 01/20/21 07:51 01/20/21 07:51 01/20/21 07:51 General: Alert, Oriented x3, Cooperative, No apparent distress, Well developed, Well nourished HEENT: Atraumatic, PERRLA, EOMI, Normocephalic Oral: Moist Mucosa Neck: No JVD Lungs: Normal air movement Abdomen: Non-Distended Extremities: No clubbing, No cyanosis, No Calf Tenderness, - - Chronic skin changes persist in the patient's left lower extremity. These include lipodermatosclerosis and hyperpigmentation. There are multiple large varicosities. Addt'l Wound Findings: The wound on the left lateral calf persists. However, it is smaller in size. Dimensions are documented elsewhere. There is no sign of infection or cellulitis. There is a moderate amount of bioburden. The base of the wound is generally pink and healthy in appearance. Wound Measurements and Assessment WC - Nurse 1 - General Ulcer Measurement Start: 01/06/21 07:38 Freq: Status: Active Protocol: Activity Type Activity Date Activity User E-Sign Co-Sign Detail Recorded Client Recorded Date Recorded By Document 01/20/21 07:51 PL [id number] 01/20/21 07:53 PL 01/20/21 07:51 Wound Center Nurse 1 [Ulcer Assessment] #1 Lateral LLE -Combined with other wound No -Current Size (cm) - Length 2.0 -Current Size (cm) - Width 2.0 -Current Size (cm) - Depth 0.2 -Total Square Cm 4.00 -Photo Taken No -Epithelialization Small 1-33% -Tunneling No -Undermining/Tunneling No -Circular Undermining No -Exudate Amt Medium -Exudate Type Serosanguineous -Granulation Amt Large (67-100%) -Granulation Quality [place] -Slough/Fibrin Yes -Necrosis Amt None Present (0 %) -Necrotic Tissue Type Adherent Slough Musculoskeletal: No Muscle Wasting Neurological: Cranial nerves II-XII grossly intact, Neuro grossly intact Psych/Mental Status: Normal Affect, Appropriate, Alert and oriented to time, place, person, mood and affect Debridement Note Post-Debridement Measurements/Treatment WC - Nurse 2 - General Ulcer CM Notes Start: 01/06/21 07:38 Freq: Status: Active Protocol: Activity Type Activity Date Activity User E-Sign Co-Sign Detail Recorded Client Recorded Date Recorded By Document 01/06/21 09:30 PL [id number] 01/06/21 09:32 PL 01/06/21 09:30 Wound Center Nurse 2 #1 Lateral LLE -Time 08:07 -Correct Patient Yes -Correct Side, Site, Position Yes -Correct Procedure Yes -Procedure Performed Yes -Type of Procedure Debridement -Clinical Debridement Subcutaneous -Tissue Removed Subcutaneous -Post Debridement (cm) - Length 2.7 -Post Debridement (cm) - Width 2.2 -Post Debridement (cm) - Depth 0.2 -Total Square (Post) (cm) 5.94 -Area of Debridement (cm) - Length 2.7 -Area of Debridement (cm) - Width 2.2 -Total Square (Area) (cm) 5.94 -Tunneling No -Undermining/Tunneling No -Circular Undermining No -Wound/Ulcer Outcome Not Healed -Ulcer Cleansing Rinsed/ Irrigated with Saline -Foul Odor after Cleansing No -Bioengineered Tissue No -Debridement - Subq, 1st 20sq cm Yes Pain Scale: 0-10 Numeric Is Patient Pain Free? Yes - Nurse 3 - General Ulcer D/C NN Start: 01/06/21 07:38 Freq: Status: Active Protocol: Activity Type Activity Date Activity User E-Sign Co-Sign Detail Recorded Client Recorded Date Recorded By Document 01/06/21 09:30 PL [id number] 01/06/21 09:32 PL Document 01/13/21 08:19 PL [id number] 01/13/21 08:23 PL 01/06/21 01/13/21 09:30 08:19 Pain Scale: 0-10 Numeric Is Patient Pain Free? Yes Yes Wound Care Nurse 3 #1 Lateral LLE -Ulcer Cleansing Rinsed/ Soap and Water Irrigated with Saline -Foul Odor after Cleansing No No -Negative Pressure Wound Therapy Continue Continue -Setting (mmHg) 125 125 -Negative Pressure is Continuous Continuous -Other Dressing Siena -NPWT Application Charge ($) NPWT </= 50 sq NPWT </= 50 sq cm (disp) cm (disp) Left -Compression Wrap Surepress ($) Surepress ($) Vital Signs Temperature (97.8 F-99.1 F) 97.4 F L Temperature Source Temporal Pulse Rate (60-100) 85 Respiratory Rate (12-18) 18 Blood Pressure (90/60-120/80) 143/85 H Blood Pressure Mean (mm Hg) 104 WC - Visit Discharge Discharge Condition Stable Stable Ambulatory Status Ambulatory Ambulatory Transportation Private Auto Medication Reconcilliation completed & No provided to patient/care provider Clinical Summary of Care Provided No Laterality: Left - Lateral calf Type of Debridement: Excisional debridement Anesthesia Used: 5% Lidocaine Gel Depth: Down to and including healthy tissue, in the subcutaneous layer Percentage of wound debrided: 100 Instrument Used: 5mm curette Tissue Removed: Bioburden Severity: Fat Layer Exposed Amount of bleeding with debridement: Mild Bleeding Controlled with: Compression and gauze Patient tolerated procedure well Assessment/Plan Active Problems Leg swelling (Chronic) Leg edema (Chronic) Abscess of left leg (Chronic) Surgical wound present (Chronic) Chronic venous insufficiency (Chronic) Post-phlebitic dermatosis of both lower extremities (Chronic) Hyperpigmentation of skin (Chronic) Lipodermatosclerosis of both lower extremities (Chronic) Diallo phlebectatica (Chronic) Wound of left leg (Chronic) Necrosis (Chronic) Obesity (BMI 35.0-39.9 without comorbidity) (Chronic) Personal history of thrombophlebitis (Chronic) Tobacco abuse (Chronic) Tobacco abuse counseling (Chronic) Assessment: This is a 60-year-old male who presented elsewhere initially with a large abscess on the left lateral calf. He was hospitalized for approximately 5 days, and underwent incision and drainage of the abscess. He presented here for definitive management. At the time of his initial presentation, the patient was noted to have a large amount of frankly necrotic and nonviable tissue present at the site of his former abscess, with some tunneling as well. The patient also suffers from longstanding swelling, edema, and lymphedema of his lower extremities, and is known to have a history of superficial thrombophlebitis in the left lower extremity previously. Physical findings suggest longstanding chronic venous insufficiency. The patient has undergone a battery of diagnostic testing. An x-ray of the left tibia/fibula shows soft tissue changes, but no other abnormalities. Laboratory results from 03/20/2020 are as follows: White blood count 6.0, hemoglobin 14.4, hematocrit 44.7, platelets 247,000, sodium 137, potassium 4.1, chloride 104, BUN 20, creatinine 0.76, glucose 127, calcium 9.1, total bilirubin 0.60, AST 14, ALT 31, alkaline phosphatase 57, total protein 7.6, albumin 4.1, prealbumin 29.2. Recently, a noninvasive lower extremity arterial study revealed no evidence of significant arterial occlusive disease in the lower extremities. A venous duplex examination revealed incompetence of the great saphenous veins bilaterally. At this juncture, the patient appears to be progressing well, though little change has been noted in his left lateral calf wound in the last several weeks. Previously, there had been progressive decrease in the size and depth of his wound. Undermining posteriorly is resolved. Recent wound cultures were positive for Staph aureus, and the patient was placed on Levaquin 750 mg daily for 10 days. Anaerobic cocci were also isolated, and the patient was placed on clindamycin 450 mg 3 times daily for 7 days. It appears as though the patient has responded in satisfactory fashion, and his wound bed looks much improved, and the wound has decreased in size significantly. Plan: The patient has been advised to continue conservative treatment measures. These are to include leg elevation. He is to continue sleeping on a flat mattress at night. His legs are to be elevated to heart level, or higher, even during daytime hours. This is to be implemented as much as possible. The patient has been advised to refrain from prolonged, idle standing and sitting. Activity has been encouraged. Implementation of the calf and foot muscle pumps has been explained. Weight loss is also been recommended. The patient has obtained graduated compression stockings of 20 to 30 mmHg compression. While the patient's willing compliance may be adequate, he does work long hours each day at the local [employer], which results in long hours of lower extremity dependency, thus enhancing venous hypertension. There is continued concern as to the patient's occupation and the demands for prolonged idle sitting, which is thought to be a contributing factor to the patient's lack of progress. This has been discussed with the patient repeatedly. He admits to often working up to 82 hours/week. In his own words, the patient admits that his work schedule is excessive. We have recently obtained approval for the use of the Snap VAC for implementation of negative pressure wound therapy. This was implemented recently, and will be continued. The patient is to use a SurePress compression wrap, which he will apply on a daily basis, with instructions to avoid placing the tubing under the compression wrap itself. In this way, we will avoid pressure phenomenon. We are to continue Siena topically to the wound on the left lateral calf with each weekly visit. Approval for the use of EpiFix and PuraPly was sought, but denied by the patient's insurance company. The patient is to return in 1-2 weeks for reassessment. Once again, we have reinforced the need for compression, elevation, avoidance of prolonged idle sitting, etc. We will continue to monitor the patient's wound serially, and to assess the patient's progress. The patient's wound cultures were positive for Staph aureus and strep species, and the patient has completed a course of Augmentin 875 mg p.o. twice daily for a total of 10 days. Additionally, due to the persisting swelling, edema, and lymphedema in the patient's left lower extremity, as well as venous hypertension, we are to seek preauthorization for the use of pneumatic mechanical compression pumps to the lower extremities. It is felt that this measure will help lyse the swelling in the soft tissues of the distal left lower extremity, and will enhance the progression of healing. Patient smokes approximately 1/2 pack of cigarettes per day, and has been advised to refrain from his smoking habit. Influenza vaccine was not administered today. Patient stands 5 feet 10 inches tall. He weighs 246 pounds. His BMI is 35.3, which places him in a class II obesity category. Weight loss has been recommended, and collaboration with the patient's primary care physician has been advised. Total time: 28 minutes.
[2021-01-27 17:00] VITALS: BP 135/80; PULSE 85; RESP 18; TEMP 36.4; BMI 35.3
== END 2021-01-30 23:59 ==
LOC: WC 07:45
PROVIDERS: PCP Family Medicine; Referring Provider Surgery; Visit Provider Surgery
DX: I83.222 Varicose veins of left lower extremity with both ulcer of calf and inflammation (principal); I83.11 Varicose veins of right lower extremity with inflammation; R60.0 Localized edema; M79.89 Other specified soft tissue disorders; L02.416 Cutaneous abscess of left lower limb; L97.222 Non-pressure chronic ulcer of left calf with fat layer exposed; E66.9 Obesity, unspecified; Z79.899 Other long term (current) drug therapy; F17.210 Nicotine dependence, cigarettes, uncomplicated; Z68.35 Body mass index [BMI] 35.0-35.9, adult
CPT/HCPCS: 11042; 87070; 87075; 87077; 87186; 87205; 97607

== ENCOUNTER 2021-02-24 07:45 | Outpatient (RCR) | payer OTHER, SELFPAY ==
[2021-01-31 00:31] VITALS: BP 135/80; PULSE 85; RESP 18; TEMP 36.4
[2021-02-03 07:48] VITALS: BP 164/79; PULSE 69; RESP 16; BMI 35.3
--- NOTE | 2021-02-03 12:05 | HP.PCM_ITS ---
History of Present Illness Date of Service: 02/03/21 Chief Complaint: Open wound of the left lateral calf, status-post incision and drainage of abscess History of Wound: This is a 60-year-old male who was admitted to [facility] approximately 1 month prior to presentation with a large a bscess on the left lateral calf. On February 11, 2020, he underwent incision and drainage of the abscess. He spent approximately 5 days in the hospital, and was subsequently discharged on Augmentin. The patient claims to sleep on a flat mattress at night. However, he suffers from chronic swelling and edema in both lower extremities. Additionally, he has a history of superficial thrombophlebitis in the left lower extremity, and has undergone a prior left lower extremity vein stripping procedure in the remote past. Patient has developed chronic skin changes in his lower extremities, which include hyperpigmentation and lipodermatosclerosis in the gaiter areas bilaterally. 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 The patient claims to be relatively active. Management the time of presentation included the use of a wet-to-dry gauze packing daily. It is noted that patient underwent a venous duplex examination during his hospitalization recently, that was negative for any evidence of thrombosis, but indicated valvular incompetence of the deep and superficial venous systems bilaterally. [facility] Medical History (Updated 02/03/21 @ 12:[address] Juan Alberto Muñoz MD) Chronic venous insufficiency Postphlebitic syndrome with inflammation Home Medications Augmentin 875-125 Tablet 875 mg PO BID 03/18/20 [History Last Taken Unknown] rosuvastatin 20 mg PO DAILY 03/18/20 [History Last Taken Unknown] Social History Smoking Status: Light Smoker (<10/day) Vital Signs Vital Signs Vital Signs: 02/03/21 07:48 Pulse Rate 69 Respiratory Rate 16 Blood Pressure 164/79 H Blood Pressure Mean 107 Blood Pressure Source Monitor Blood Pressure Position Sitting Blood Pressure Location Right Arm Oxygen Delivery Method Room Air Physical Exam Const alert, oriented x3, no apparent distress and well nourished General Appearance: cooperative and well developed Orientation / Consciousness: oriented to person, oriented to place and oriented to time Nutritional Appearance: obese HEENT normocephalic, external ears normal and moist oral mucous membranes Head and Scalp: atraumatic Nose: nares normal External Ear: external ears normal Eyes PERRL and EOMs intact bilaterally General Eye: normal appearance of both eyes Sclera: sclera normal Neck supple and no JVD General: trachea midline Resp normal respiratory effort and no use of accessory muscles Effort and Inspection: able to speak in complete sentences GI Palpation: soft Extremity no calf tenderness Extremity Narrative: Slight swelling and edema are noted in the patient's left lower extremity. Chronic skin changes are also noted in the left lower extremity, namely hyperpigmentation and lipodermatosclerosis. Multiple large, bulging varicose veins are also noted. The wound on the left lateral calf persists, though is smaller in size. Dimensions are documented elsewhere. The base of the wound is generally pink and healthy in appearance. There is a small amount of bioburden. There is no sign of infection or cellulitis. General Extremity: Negative for clubbing or cyanosis Skin Wound Narrative: As noted above. Neuro oriented x3, CN's II-XII intact bilaterally, moves all extremities and no sensory deficits noted Psych mental status grossly normal and thought process normal Appearance: grossly normal and appropriate Speech: normal speech Thought Process: normal thought process Debridement Note Debridement Note Post-Debridement Measurements and Additional Note: Post-Debridement Measurements/Treatment WC - Nurse 2 - General Ulcer CM Notes Start: 02/03/21 07:48 Freq: Status: Active Protocol: Activity Type Activity Date Activity User E-Sign Co-Sign Detail Recorded Client Recorded Date Recorded By Document 02/03/21 08:26 PL [id number] 02/03/21 08:27 PL 02/03/21 08:26 Wound Center Nurse 2 #1 Lateral LLE -Time 08:10 -Correct Patient Yes -Correct Side, Site, Position Yes -Correct Procedure Yes -Procedure Performed Yes -Type of Procedure Debridement -Clinical Debridement Subcutaneous -Tissue Removed Subcutaneous -Post Debridement (cm) - Length 1.8 -Post Debridement (cm) - Width 1.5 -Post Debridement (cm) - Depth 0.2 -Total Square (Post) (cm) 2.70 -Area of Debridement (cm) - Length 1.8 -Area of Debridement (cm) - Width 1.5 -Total Square (Area) (cm) 2.70 -Tunneling No -Undermining/Tunneling No -Circular Undermining No -Wound/Ulcer Outcome Not Healed -Ulcer Cleansing Rinsed/ Irrigated with Saline -Foul Odor after Cleansing No -Bioengineered Tissue No -Debridement - Subq, 1st 20sq cm Yes Pain Scale: 0-10 Numeric Is Patient Pain Free? Yes - Nurse 3 - General Ulcer D/C NN Start: 02/03/21 07:48 Freq: Status: Active Protocol: Activity Type Activity Date Activity User E-Sign Co-Sign Detail Recorded Client Recorded Date Recorded By Document 02/03/21 08:21 MS [id number] 02/03/21 08:23 MS 02/03/21 08:21 Wound Care Nurse 3 #1 Lateral LLE -Ulcer Cleansing Rinsed/ Irrigated with Saline -Foul Odor after Cleansing No -Negative Pressure is Continuous -Other Dressing cecile -NPWT Application Charge ($) NPWT </= 50 sq cm (disp) WC - Visit Discharge Discharge Condition Stable Ambulatory Status Ambulatory Medication Reconcilliation completed & No provided to patient/care provider Clinical Summary of Care Provided Yes Wound debrided: Left lateral calf Laterality: Left Type of Debridement: Excisional debridement Anesthesia Used: 5% Lidocaine Gel Depth: in the subcutaneous layer Percentage of wound debrided: 100 Instrument Used: 5mm curette Tissue Removed: Bioburden and nonviable tissue Severity: Fat Layer Exposed Amount of bleeding with debridement: Mild Bleeding Controlled with: Compression and gauze Patient tolerated procedure: Patient tolerated procedure well Assessment & Plan Assessment/Plan (1) Chronic venous insufficiency: Status: Chronic Code(s): I87.2 - Venous insufficiency (chronic) (peripheral) (2) Postphlebitic syndrome with inflammation: Status: Acute Code(s): I87.029 - Postthrombotic syndrome with inflammation of unspecified lower extremity (3) Leg swelling: Status: Chronic Code(s): M79.89 - Other specified soft tissue disorders (4) Leg edema: Status: Chronic Code(s): R60.0 - Localized edema (5) Abscess of left leg: Status: Chronic Code(s): L02.416 - Cutaneous abscess of left lower limb (6) Surgical wound present: Status: Chronic Code(s): T14.8XXA - Other injury of unspecified body region, initial encounter (7) Chronic venous insufficiency: Status: Chronic Code(s): I87.2 - Venous insufficiency (chronic) (peripheral) (8) Post-phlebitic dermatosis of both lower extremities: Status: Chronic Code(s): I87.093 - Postthrombotic syndrome with other complications of bilateral lower extremity (9) Hyperpigmentation of skin: Status: Chronic Code(s): L81.9 - Disorder of pigmentation, unspecified (10) Lipodermatosclerosis of both lower extremities: Status: Chronic Code(s): I83.11 - Varicose veins of right lower extremity with inflammation; I83.12 - Varicose veins of left lower extremity with inflammation (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 (12) Wound of left leg: Status: Chronic Code(s): S81.802A - Unspecified open wound, left lower leg, initial encounter (13) Obesity (BMI 35.0-39.9 without comorbidity): Status: Chronic Code(s): E66.9 - Obesity, unspecified (14) Personal history of thrombophlebitis: Status: Chronic Code(s): Z86.72 - Personal history of thrombophlebitis (15) Tobacco abuse: Status: Chronic Code(s): Z72.0 - Tobacco use (16) Tobacco abuse counseling: Status: Chronic Code(s): Z71.6 - Tobacco abuse counseling (17) 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 These are to include leg elevation. He is to continue sleeping on a flat mattress at night. His legs are to be elevated to heart level, or higher, even during daytime hours. This is to be implemented as much as possible. The patient has been advised to refrain from prolonged, idle standing and sitting. Activity has been encouraged. Implementation of the calf and foot muscle pumps has been explained. Weight loss is also been recommended. The patient has obtained graduated compression stockings of 20 to 30 mmHg compression. While the patient's willing compliance may be adequate, he does work long hours each day at the local [employer], which results in long hours of lower extremity dependency, thus enhancing venous hypertension. There is continued concern as to the patient's occupation and the demands for prolonged idle sitting, which is thought to be a contributing factor to the patient's lack of progress. This has been discussed with the patient repeatedly. He admits to often working up to 82 hours/week. In his own words, the patient admits that his work schedule is excessive. We have recently obtained approval for the use of the Snap VAC for implementation of negative pressure wound therapy. This was implemented recently, and will be continued. The patient is to use a SurePress compression wrap, which he will apply on a daily basis, with instructions to avoid placing the tubing under the compression wrap itself. In this way, we will avoid pressure phenomenon. We are to continue Cecile topically to the wound on the left lateral calf with each weekly visit. Approval for the use of EpiFix and PuraPly was sought, but denied by the patient's insurance company. The patient is to return in 1 week for reassessment. Once again, we have reinforced the need for compression, elevation, avoidance of prolonged idle sitting, etc. We will continue to monitor the patient's wound serially, and to assess the patient's progress. The patient's wound cultures were positive for Staph aureus and strep species, and the patient has completed a course of Augmentin 875 mg p.o. twice daily for a total of 10 days. Additionally, due to the persisting swelling, edema, and lymphedema in the patient's left lower extremity, as well as venous hypertension, we requested preauthorization for the use of pneumatic mechanical compression pumps to the lower extremities. This has been improved, and receipt of the pumps is awaited. It is felt that this measure will help minimize the swelling in the soft tissues of the distal left lower extremity, and will enhance the progression of healing. Patient smokes approximately 1/2 pack of cigarettes per day, and has been advised to refrain from his smoking habit. Influenza vaccine was not administered today. Patient stands 5 feet 10 inches tall. He weighs 246 pounds. His BMI is 35.3, which places him in a class II obesity category. Weight loss has been recommended, and collaboration with the patient's primary care physician has been advised. The recent implementation of a new electronic medical record system may result in errors, omissions, or inaccuracies in this document. Total time: 29 minutes.
[2021-02-10 07:54] VITALS: BP 150/85; PULSE 80; RESP 18; TEMP 36.6; BMI 35.3
--- NOTE | 2021-02-10 08:18 | HP.PCM_ITS ---
History of Present Illness Date of Service: 02/10/21 Chief Complaint: Open wound of the left lateral calf, status-post incision and drainage of abscess History of Wound: This is a 60-year-old male who was admitted to [facility] approximately 1 month prior to presentation with a large a bscess on the left lateral calf. On February 11, 2020, he underwent incision and drainage of the abscess. He spent approximately 5 days in the hospital, and was subsequently discharged on Augmentin. The patient claims to sleep on a flat mattress at night. However, he suffers from chronic swelling and edema in both lower extremities. Additionally, he has a history of superficial thrombophlebitis in the left lower extremity, and has undergone a prior left lower extremity vein stripping procedure in the remote past. Patient has developed chronic skin changes in his lower extremities, which include hyperpigmentation and lipodermatosclerosis in the gaiter areas bilaterally. 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 The patient claims to be relatively active. Management the time of presentation included the use of a wet-to-dry gauze packing daily. It is noted that patient underwent a venous duplex examination during his hospitalization recently, that was negative for any evidence of thrombosis, but indicated valvular incompetence of the deep and superficial venous systems bilaterally. [facility] Medical History (Updated 02/03/21 @ 12:[address] Juan Alberto Muñoz MD) Chronic venous insufficiency Postphlebitic syndrome with inflammation Home Medications Augmentin 875-125 Tablet 875 mg PO BID 03/18/20 [History Last Taken Unknown] rosuvastatin 20 mg PO DAILY 03/18/20 [History Last Taken Unknown] Social History Smoking Status: Light Smoker (<10/day) ROS Constitutional Constitutional: Denies anorexia, change in weight, chills, fever(s), malaise or night sweats Eyes Eyes: Denies change in vision, double vision or eye pain ENT HEENT: Denies dysphagia, epistaxis, headache(s), hearing loss, sinus pain, sinus pressure or sore throat Cardiovascular Cardiovascular: Denies chest pain or palpitations Respiratory/Chest Respiratory/Chest: Denies pain on inspiration, shortness of breath at rest or wheezing Gastrointestinal Gastrointestinal: Denies abdominal pain, hematemesis, hematochezia or nausea Genitourinary Genitourinary: Denies dysuria or hematuria Musculoskeletal Musculoskeletal: Reports loss of height Neurologic Neurologic: Denies headache(s), loss of vision or seizures Endocrine Endocrinology: Denies polyuria Vital Signs Vital Signs Vital Signs: 02/10/21 07:54 Temperature 97.8 F Temperature Source Temporal Pulse Rate 80 Respiratory Rate 18 Blood Pressure 150/85 H Blood Pressure Mean 106 Physical Exam Const alert, oriented x3, no apparent distress and well nourished General Appearance: cooperative and well developed HEENT normocephalic, EAC's normal and moist oral mucous membranes Head and Scalp: atraumatic Eyes PERRL and EOMs intact bilaterally Neck supple and no JVD General: trachea midline Resp normal respiratory effort and no use of accessory muscles Effort and Inspection: able to speak in complete sentences GI non-distended Palpation: soft Extremity full ROM and no calf tenderness Extremity Narrative: Mild swelling and edema noted in the patient's left lower extremity. Chronic hyperpigmentation and lipodermatosclerosis are also noted in the left lower extremity gaiter area. The wound on the left lateral calf persists. It is little changed in size. Dimensions are documented elsewhere. There is no sign of infection or cellulitis. There is a moderate amount of bioburden. General Extremity: Negative for clubbing or cyanosis Skin Wound Narrative: As above. The wound persists on the left lateral calf. There is no sign of infection or cellulitis. Dimensions are documented elsewhere. Neuro oriented x3, CN's II-XII intact bilaterally and moves all extremities Psych Appearance: grossly normal, appropriate and well kempt Attitude: calm Activity / Motor Behavior: appropriate eye contact Speech: normal speech Thought Content: normal thought content Memory / Cognition: memory grossly intact Debridement Note Debridement Note Post-Debridement Measurements and Additional Note: Post-Debridement Measurements/Treatment KISHA - Nurse 1 - General Ulcer Assessment Start: 02/03/21 07:48 Freq: Status: Active Protocol: DIGNA Activity Type Activity Date Activity User E-Sign Co-Sign Detail Recorded Client Recorded Date Recorded By Document 02/03/21 07:48 BMF [id number] 02/03/21 07:51 BMF Document 02/10/21 07:54 PL [id number] 02/10/21 08:00 PL 02/03/21 02/10/21 07:48 07:54 - Today's Visit Information Type of service Follow-up Visit Follow-up Visit (Physician/SUBCONTRACTS MANAGER (Physician/SUBCONTRACTS MANAGER ) ) Arrival Mode Ambulatory Ambulatory Transfer Assistance None None Patient Identification Verified (Name & Yes Yes ) Patient Requires Transmission-Based No Precautions Safety Precautions NA Height and Weight Body Mass Index (BMI) 35.3 35.3 BMI Classification Obese Obese Temperature (97.8 F-99.1 F) 97.8 F Temperature Source Temporal Vital Signs Pulse Rate (60-100) 69 80 Pulse Location Monitor Respiratory Rate (12-18) 16 18 Respiratory rate source Observation Oxygen Delivery Method Room Air Blood Pressure (90/60-120/80) 164/79 H 150/85 H Blood Pressure Mean 107 106 Source Monitor Position Sitting Blood Pressure Location Right Arm History Since Last Visit- (Skip if this is Patient's initial visit) Have you changed medications since your No No last visit? Any new allergies or adverse reactions No No Had a fall/change in ADL's that may No No increase risk of falls Signs or symptoms of abuse and/or No No neglect since last visit Have you been in the hospital since your No No last visit? Has dressing in place as prescribed Yes Yes Has compression in place as prescribed Yes Yes Has offloadiing in place as prescribed N/A N/A Experienced any changes in pain level or No No management Left Footwear Regular Shoe Right Footwear Regular Shoe Pain Scale: 0-10 Numeric Is Patient Pain Free? Yes Yes - Nurse 1 - General Ulcer Measurement Start: 02/03/21 07:48 Freq: Status: Active Protocol: Activity Type Activity Date Activity User E-Sign Co-Sign Detail Recorded Client Recorded Date Recorded By Document 02/03/21 07:48 [facility] [id number] 02/03/21 07:51 [facility] Document 02/10/21 07:54 PL [id number] 02/10/21 08:00 PL 02/03/21 02/10/21 07:48 07:54 Wound Center Nurse 1 #1 Lateral LLE -Combined with other wound No No -Current Size (cm) - Length 1.8 2.0 -Current Size (cm) - Width 1.5 2.0 -Current Size (cm) - Depth 0.3 0.2 -Total Square Cm 2.70 4.00 -Photo Taken No No -Epithelialization None Present None Present -Tunneling No No -Undermining/Tunneling No No -Circular Undermining No No -Exudate Amt Medium Medium -Exudate Type Serosanguineous Serosanguineous -Wound Margin Distinct, Outline Attached -Granulation Amt Large (67-100%) Large (67-100%) -Granulation Quality [place] -Slough/Fibrin Yes Yes -Necrosis Amt Small (1-33%) Small (1-33%) -Necrotic Tissue Type Adherent Slough Adherent Slough -Texture (Lois-wound Skin Appearance) Assessed, Scarring -Moisture (Lois-wound Skin Appearance) Assessed, Dry/Scaly Maceration -Color (Lois-wound Skin Appearance) Assessed, No Abnormality Mottled -Temperature (Lois-wound Skin No Abnormality No Abnormality Appearance) (Pt Warm) (Pt Warm) -Tenderness on Palpation (Lois-wound Yes No Skin Appearance) -Ulcer Cleansing soapy water Soap and water -Foul Odor after Cleansing No No -Anesthetic Used 5% Lidocaine 5% Lidocaine Gel Gel Lower Limb Edema Present Yes Left Calf (cm) 43 Left Ankle (cm) 25.6 WC - Nurse 2 - General Ulcer CM Notes Start: 02/03/21 07:48 Freq: Status: Active Protocol: Activity Type Activity Date Activity User E-Sign Co-Sign Detail Recorded Client Recorded Date Recorded By Document 02/03/21 08:26 [place] [id number] 02/03/21 08:27 [place] 02/03/21 08:26 Wound Center Nurse 2 -Time 08:10 -Correct Patient Yes -Correct Side, Site, Position Yes -Correct Procedure Yes -Procedure Performed Yes -Type of Procedure Debridement -Clinical Debridement Subcutaneous -Tissue Removed Subcutaneous -Post Debridement (cm) - Length 1.8 -Post Debridement (cm) - Width 1.5 -Post Debridement (cm) - Depth 0.2 -Total Square (Post) (cm) 2.70 -Area of Debridement (cm) - Length 1.8 -Area of Debridement (cm) - Width 1.5 -Total Square (Area) (cm) 2.70 -Tunneling No -Undermining/Tunneling No -Circular Undermining No -Wound/Ulcer Outcome Not Healed -Ulcer Cleansing Rinsed/ Irrigated with Saline -Foul Odor after Cleansing No -Bioengineered Tissue No -Debridement - Subq, 1st 20sq cm Yes Pain Scale: 0-10 Numeric Is Patient Pain Free? Yes WC - Nurse 3 - General Ulcer D/C NN Start: 02/03/21 07:48 Freq: Status: Active Protocol: Activity Type Activity Date Activity User E-Sign Co-Sign Detail Recorded Client Recorded Date Recorded By Document 02/03/21 08:21 MS [id number] 02/03/21 08:23 MS 02/03/21 08:21 Wound Care Nurse 3 #1 Lateral LLE -Ulcer Cleansing Rinsed/ Irrigated with Saline -Foul Odor after Cleansing No -Negative Pressure is Continuous -Other Dressing cecile -NPWT Application Charge ($) NPWT </= 50 sq cm (disp) WC - Visit Discharge Discharge Condition Stable Ambulatory Status Ambulatory Medication Reconcilliation completed & No provided to patient/care provider Clinical Summary of Care Provided Yes Wound debrided: Lateral calf Laterality: Left Type of Debridement: Excisional debridement Anesthesia Used: 5% Lidocaine Gel Depth: Down to and including healthy tissue and in the subcutaneous layer Percentage of wound debrided: 100 Instrument Used: 5mm curette Tissue Removed: Bioburden Severity: Fat Layer Exposed Amount of bleeding with debridement: Mild Bleeding Controlled with: Compression and gauze Patient tolerated procedure: Patient tolerated procedure well Assessment & Plan Assessment/Plan (1) 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: (2) Chronic venous insufficiency: (3) Postphlebitic syndrome with inflammation: (4) Leg swelling: (5) Leg edema: (6) Abscess of left leg: (7) Surgical wound present: (8) Chronic venous insufficiency: (9) Post-phlebitic dermatosis of both lower extremities: (10) Hyperpigmentation of skin: (11) Lipodermatosclerosis of both lower extremities: (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 These are to include leg elevation. He is to continue sleeping on a flat mattress at night. His legs are to be elevated to heart level, or higher, even during daytime hours. This is to be implemented as much as possible. The patient has been advised to refrain from prolonged, idle standing and sitting. Activity has been encouraged. Implementation of the calf and foot muscle pumps has been explained. Weight loss is also been recommended. The patient has obtained graduated compression stockings of 20 to 30 mmHg compression. While the patient's willing compliance may be adequate, he does work long hours each day at the local [employer], which results in long hours of lower extremity dependency, thus enhancing venous hypertension. There is continued concern as to the patient's occupation and the demands for prolonged idle sitting, which is thought to be a contributing factor to the patient's lack of progress. He is currently working more than 50 hours/week, 10 hours/day. This has been discussed with the patient repeatedly. He admits to often working up to 82 hours/week. In his own words, the patient admits that his work schedule is excessive. We have obtained approval for the use of the Snap VAC for implementation of negative pressure wound therapy. This was implemented recently, and will be continued. The patient is to use a SurePress compression wrap, which he will apply on a daily basis, with instructions to avoid placing the tubing under the compression wrap itself. In this way, we will avoid pressure phenomenon. We are to continue Cecile topically to the wound on the left lateral calf with each weekly visit. We will also add collagen powder topically as well. Approval for the use of EpiFix and PuraPly were sought, but denied by the patient's insurance company. The patient is not eligible for any skin graft substitutes, based upon his insurance plan. The patient is to return in 1 week for reassessment. Once again, we have reinforced the need for compression, elevation, avoidance of prolonged idle sitting, etc. We will continue to monitor the patient's wound serially, and to assess the patient's progress. The patient's wound cultures were positive for Staph aureus and strep species, and the patient has completed a course of Augmentin 875 mg p.o. twice daily for a total of 10 days. Additionally, due to the persisting swelling, edema, and lymphedema in the patient's left lower extremity, as well as venous hypertension, we requested preauthorization for the use of pneumatic mechanical compression pumps to the lower extremities. This has been approved, and receipt of the pumps is awaited. It is felt that this measure will help minimize the swelling in the soft tissues of the distal left lower extremity, and will enhance the progression of healing. Patient smokes approximately 1/2 pack of cigarettes per day, and has been advised to refrain from his smoking habit. Influenza vaccine was not administered today. Patient stands 5 feet 10 inches tall. He weighs 246 pounds. His BMI is 35.3, which places him in a class II obesity category. Weight loss has been recommended, and collaboration with the patient's primary care physician has been advised. The recent implementation of a new electronic medical record system may result in errors, omissions, or inaccuracies in this document. Total time: 28 minutes.
[2021-02-17 07:50] VITALS: BP 165/83; PULSE 83; RESP 18; TEMP 36; BMI 35.3
--- NOTE | 2021-02-17 08:11 | HP.PCM_ITS ---
History of Present Illness Date of Service: 02/17/21 Chief Complaint: Open wound of the left lateral calf, status-post incision and drainage of abscess History of Wound: This is a 60-year-old male who was admitted to [facility] approximately 1 month prior to presentation with a large a bscess on the left lateral calf. On February 11, 2020, he underwent incision and drainage of the abscess. He spent approximately 5 days in the hospital, and was subsequently discharged on Augmentin. The patient claims to sleep on a flat mattress at night. However, he suffers from chronic swelling and edema in both lower extremities. Additionally, he has a history of superficial thrombophlebitis in the left lower extremity, and has undergone a prior left lower extremity vein stripping procedure in the remote past. Patient has developed chronic skin changes in his lower extremities, which include hyperpigmentation and lipodermatosclerosis in the gaiter areas bilaterally. 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 The patient claims to be relatively active. Management the time of presentation included the use of a wet-to-dry gauze packing daily. It is noted that patient underwent a venous duplex examination during his hospitalization recently, that was negative for any evidence of thrombosis, but indicated valvular incompetence of the deep and superficial venous systems bilaterally. [facility] Medical History (Updated 02/03/21 @ 12:[address] Juan Alberto Muñoz MD) Chronic venous insufficiency Postphlebitic syndrome with inflammation Home Medications Augmentin 875-125 Tablet 875 mg PO BID 03/18/20 [History Last Taken Unknown] rosuvastatin 20 mg PO DAILY 03/18/20 [History Last Taken Unknown] Social History Smoking Status: Light Smoker (<10/day) Vital Signs Vital Signs Vital Signs: 02/17/21 07:50 Temperature 96.8 F L Temperature Source Temporal Pulse Rate 83 Respiratory Rate 18 Blood Pressure 165/83 H Blood Pressure Mean 110 Physical Exam Const alert, oriented x3, no apparent distress and well nourished General Appearance: cooperative, comfortable, well kempt and well developed Orientation / Consciousness: awake, oriented to person, oriented to place and oriented to time HEENT normocephalic, EAC's normal and moist oral mucous membranes Head and Scalp: normal to inspection, normocephalic and atraumatic External Ear: external ears normal Eyes PERRL and EOMs intact bilaterally General Eye: normal appearance of both eyes Neck General: trachea midline Resp normal respiratory effort and no use of accessory muscles Effort and Inspection: able to speak in complete sentences GI normal to inspection, nondistended, normoactive bowel sounds Extremity full ROM and no calf tenderness Extremity Narrative: Slight swelling and edema are noted in the patient's left lower extremity. There are numerous prominent, bulging varicosities. Hyperpigmentation and lipodermatosclerosis are noted in the gaiter area. General Extremity: Negative for clubbing or cyanosis Skin Wound Narrative: The wound persists on the left lateral calf. There is a small amount of bioburden. There is no sign of infection or cellulitis. The base the wound is generally pink and healthy in appearance. The wound has decreased in size. Dimensions are documented elsewhere. Neuro oriented x3, CN's II-XII intact bilaterally, moves all extremities and no focal motor deficits Psych Appearance: grossly normal, appropriate and well kempt Attitude: calm and engaged Speech: normal speech Thought Process: normal thought process Attention / Concentration: attention grossly intact and concentration grossly i ntact Debridement Note Debridement Note Post-Debridement Measurements and Additional Note: Post-Debridement Truong urements/Treatment - Nurse 1 - General Ulcer Assessment Start: 02/03/21 07:48 Freq: Status: Active Protocol: .JAMEL Activity Type Activity Date Activity User E-Sign Co-Sign Detail Recorded Client Recorded Date Recorded By Document 02/03/21 07:48 [facility] [id number] 02/03/21 07:51 [facility] Document 02/10/21 07:54 [id number] 02/10/21 08:00 Document 02/17/21 07:50 [id number] 02/17/21 07:53 PL 02/03/21 02/10/21 02/17/21 07:48 07:54 07:50 - Today's Visit Information Type of service Follow-up Visit Follow-up Visit Follow-up Visit (Physician/[employer]OR (Physician/[employer] SUPERVISOR (Physician/[employer] SUPERVISOR ) ) ) Arrival Mode Ambulatory Ambulatory Ambulatory Transfer Assistance None None None Patient Identification Verified (Name & Yes Yes Yes ) Patient Requires Transmission-Based No No Precautions Safety Precautions NA NA Height and Weight Body Mass Index (BMI) 35.3 35.3 35.3 BMI Classification Obese Obese Obese Temperature (97.8 F-99.1 F) 97.8 F 96.8 F L Temperature Source Temporal Temporal Vital Signs Pulse Rate (60-100) 69 80 83 Pulse Location Monitor Respiratory Rate (12-18) 16 18 18 Respiratory rate source Observation Oxygen Delivery Method Room Air Blood Pressure (90/60-120/80) 164/79 H 150/85 H 165/83 H Blood Pressure Mean 107 106 110 Source Monitor Position Sitting Blood Pressure Location Right Arm History Since Last Visit- (Skip if this is Patient's initial visit) Have you changed medications since your No No No last visit? Any new allergies or adverse reactions No No No Had a fall/change in ADL's that may No No No increase risk of falls Signs or symptoms of abuse and/or No No No neglect since last visit Have you been in the hospital since your No No No last visit? Has dressing in place as prescribed Yes Yes Yes Has compression in place as prescribed Yes Yes Yes Has offloadiing in place as prescribed N/A N/A N/A Experienced any changes in pain level or No No No management Left Footwear Regular Shoe Right Footwear Regular Shoe Pain Scale: 0-10 Numeric Is Patient Pain Free? Yes Yes Yes WC - Nurse 1 - General Ulcer Measurement Start: 02/03/21 07:48 Freq: Status: Active Protocol: Activity Type Activity Date Activity User E-Sign Co-Sign Detail Recorded Client Recorded Date Recorded By Document 02/03/21 07:48 [facility] [id number] 02/03/21 07:51 [facility] Document 02/10/21 07:54 [id number] 02/10/21 08:00 PL Document 02/17/21 07:50 [id number] 02/17/21 07:53 PL 02/03/21 02/10/21 02/17/21 07:48 07:54 07:50 Wound Center Nurse 1 #1 Lateral LLE -Combined with other wound No No No -Current Size (cm) - Length 1.8 2.0 2.1 -Current Size (cm) - Width 1.5 2.0 1.9 -Current Size (cm) - Depth 0.3 0.2 0.2 -Total Square Cm 2.70 4.00 3.99 -Photo Taken No No No -Epithelialization None Present None Present None Present -Tunneling No No No -Undermining/Tunneling No No No -Circular Undermining No No No -Exudate Amt Medium Medium Medium -Exudate Type Serosanguineous Serosanguineous Serosanguineous -Wound Margin Distinct, Outline Attached -Granulation Amt Large (67-100%) Large (67-100%) Large (67-100%) -Granulation Quality Red Tichigan Tichigan -Slough/Fibrin Yes Yes Yes -Necrosis Amt Small (1-33%) Small (1-33%) Small (1-33%) -Necrotic Tissue Type Adherent Slough Adherent Slough -Texture (Lois-wound Skin Appearance) Assessed, No Abnormality Scarring -Moisture (Lois-wound Skin Appearance) Assessed, Dry/Scaly No Abnormality Maceration -Color (Lois-wound Skin Appearance) Assessed, No Abnormality No Abnormality Mottled -Temperature (Lois-wound Skin No Abnormality No Abnormality No Abnormality Appearance) (Pt Warm) (Pt Warm) (Pt Warm) -Tenderness on Palpation (Lois-wound Yes No Skin Appearance) -Ulcer Cleansing soapy water Soap and water soap and water -Foul Odor after Cleansing No No -Anesthetic Used 5% Lidocaine 5% Lidocaine 4% Lidocaine Gel Gel Solution Lower Limb Edema Present Yes Left Calf (cm) 43 Left Ankle (cm) 25.6 WC - Nurse 2 - General Ulcer CM Notes Start: 02/03/21 07:48 Freq: Status: Active Protocol: Activity Type Activity Date Activity User E-Sign Co-Sign Detail Recorded Client Recorded Date Recorded By Document 02/03/21 08:26 PL [id number] 02/03/21 08:27 PL Document 02/10/21 12:28 PL [id number] 02/10/21 12:30 PL 02/03/21 02/10/21 08:26 12:28 Wound Center Nurse 2 #1 Lateral LLE -Time 08:10 08:10 -Correct Patient Yes Yes -Correct Side, Site, Position Yes Yes -Correct Procedure Yes Yes -Procedure Performed Yes Yes -Type of Procedure Debridement Debridement -Clinical Debridement Subcutaneous Subcutaneous -Tissue Removed Subcutaneous Subcutaneous -Post Debridement (cm) - Length 1.8 2.0 -Post Debridement (cm) - Width 1.5 2.0 -Post Debridement (cm) - Depth 0.2 0.2 -Total Square (Post) (cm) 2.70 4.00 -Area of Debridement (cm) - Length 1.8 2.0 -Area of Debridement (cm) - Width 1.5 2.0 -Total Square (Area) (cm) 2.70 4.00 -Tunneling No No -Undermining/Tunneling No No -Circular Undermining No No -Wound/Ulcer Outcome Not Healed Not Healed -Ulcer Cleansing Rinsed/ Rinsed/ Irrigated with Irrigated with Saline Saline -Foul Odor after Cleansing No No -Bioengineered Tissue No No -Debridement - Subq, 1st 20sq cm Yes Yes Pain Scale: 0-10 Numeric Is Patient Pain Free? Yes Yes - Nurse 3 - General Ulcer D/C NN Start: 02/03/21 07:48 Freq: Status: Active Protocol: Activity Type Activity Date Activity User E-Sign Co-Sign Detail Recorded Client Recorded Date Recorded By Document 02/03/21 08:21 MS [id number] 02/03/21 08:23 MS Document 02/10/21 12:30 PL [id number] 02/10/21 12:30 PL 02/03/21 02/10/21 08:21 12:30 Wound Care Nurse 3 #1 Lateral LLE -Ulcer Cleansing Rinsed/ Rinsed/ Irrigated with Irrigated with Saline Saline -Foul Odor after Cleansing No No -Negative Pressure Wound Therapy Continue -Setting (mmHg) 125 -Negative Pressure is Continuous Continuous -Other Dressing cecile Cecile -NPWT Application Charge ($) NPWT </= 50 sq NPWT </= 50 sq cm (disp) cm (disp) Left -Compression Wrap Surepress ($) Pain Scale: 0-10 Numeric Is Patient Pain Free? Yes WC - Visit Discharge Discharge Condition Stable Ambulatory Status Ambulatory Medication Reconcilliation completed & No provided to patient/care provider Clinical Summary of Care Provided Yes Wound debrided: Left lateral calf Laterality: Left Type of Debridement: Excisional debridement Anesthesia Used: 5% Lidocaine Gel Depth: Down to and including healthy tissue and in the subcutaneous layer Percentage of wound debrided: 100 Instrument Used: 5mm curette Tissue Removed: Bioburden Severity: Fat Layer Exposed Amount of bleeding with debridement: Mild Bleeding Controlled with: Compression and gauze Patient tolerated procedure: Patient tolerated procedure well Assessment & Plan Assessment/Plan (1) 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: (2) Chronic venous insufficiency: (3) Postphlebitic syndrome with inflammation: (4) Leg swelling: (5) Leg edema: (6) Abscess of left leg: (7) Surgical wound present: (8) Chronic venous insufficiency: (9) Post-phlebitic dermatosis of both lower extremities: (10) Hyperpigmentation of skin: (11) Lipodermatosclerosis of both lower extremities: (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 These are to include leg elevation. He is to continue sleeping on a flat mattress at night. His legs are to be elevated to heart level, or higher, even during daytime hours. This is to be implemented as much as possible. The patient has been advised to refrain from prolonged, idle standing and sitting. Activity has been encouraged. Implementation of the calf and foot muscle pumps has been explained. Weight loss is also been recommended. The patient has obtained graduated compression stockings of 20 to 30 mmHg compression. While the patient's willing compliance may be adequate, he does work long hours each day at the local [employer], which results in long hours of lower extremity dependency, thus enhancing venous hypertension. There is continued concern as to the patient's occupation and the demands for prolonged idle sitting, which is thought to be a contributing factor to the patient's lack of progress. He is currently working more than 50 hours/week, 10 hours/day. This has been discussed with the patient repeatedly. He admits to often working up to 82 huey rs/week. In his own words, the patient admits that his work schedule is excessive. We have obtained approval for the use of the Snap VAC for implementation of negative pressure wound therapy. This was implemented recently, and will be continued. The patient is to use a SurePress compression wrap, which he will apply on a daily basis, with instructions to avoid placing the tubing under the compression wrap itself. In this way, we will avoid pressure phenomenon. We are to continue Cecile topically to the wound on the left lateral calf with each weekly visit. We will also add collagen powder topically as well. Approval for the use of EpiFix and PuraPly were sought, but denied by the patient's insurance company. The patient is not eligible for any skin graft substitutes, based upon his insurance plan. The patient is to return in 1 week for reassessment. Once again, we have reinforced the need for compression, elevation, avoidance of prolonged idle sitting, etc. We will abundio nue to monitor the patient's wound serially, and to assess the patient's progress. The patient's wound cultures were positive for Staph aureus and strep species, and the patient has completed a course of Augmentin 875 mg p.o. twice daily for a total of 10 days. Additionally, due to the persisting swelling, edema, and lymphedema in the patient's left lower extremity, as well as venous hypertension, we requested preauthorization for the use of pneumatic mechanical compression pumps to the lower extremities. This has been approved, and receipt of the pumps is awaited. It is felt that this measure will help minimize the swelling in the soft tissues of the distal left lower extremity, and will enhance the progression of healing. Prior conservative treatments that have been tried include elevation, exercise, compression wraps, and patient education in lymphedema management. Despite these conservative treatments, the patient continues to present with lymphedema. I feel as though additional care in the form of long-term daily home compression pump therapy is warranted at this time in order to maintain proper management of this chronic condition. I am prescribing Lymphapress pneumatic compression pumps, with bilateral leg sleeves and appropriate number of expanders. This is a chronic condition and the device will be needed indefinitely. The prognosis is good with the use of this compression pump. Other modalities have failed. Therefore the patient appears to meet the medical criteria for the home medical equipment. Patient smokes approximately 1/2 pack of cigarettes per day, and has been advised to refrain from his smoking habit. Influenza vaccine was not administered today. Patient stands 5 feet 10 inches tall. He weighs 246 pounds. His BMI is 35.3, which places him in a class II obesity category. Weight loss has been recommended, and collaboration with the patient's primary care physician has been advised. The recent implementation of a new electronic medical record system may result in errors, omissions, or inaccuracies in this document. Total time: 29 minutes.
[2021-02-24 07:47] VITALS: BP 164/79; PULSE 89; RESP 18; TEMP 37; BMI 35.3
--- NOTE | 2021-02-24 08:26 | HP.PCM_ITS ---
History of Present Illness Date of Service: 02/24/21 Chief Complaint: Open wound of the left lateral calf, status-post incision and drainage of abscess History of Wound: This is a 60-year-old male who was admitted to [facility] approximately 1 month prior to presentation with a large a bscess on the left lateral calf. On February 11, 2020, he underwent incision and drainage of the abscess. He spent approximately 5 days in the hospital, and was subsequently discharged on Augmentin. The patient claims to sleep on a flat mattress at night. However, he suffers from chronic swelling and edema in both lower extremities. Additionally, he has a history of superficial thrombophlebitis in the left lower extremity, and has undergone a prior left lower extremity vein stripping procedure in the remote past. Patient has developed chronic skin changes in his lower extremities, which include hyperpigmentation and lipodermatosclerosis in the gaiter areas bilaterally. 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 The patient claims to be relatively active. Management the time of presentation included the use of a wet-to-dry gauze packing daily. It is noted that patient underwent a venous duplex examination during his hospitalization recently, that was negative for any evidence of thrombosis, but indicated valvular incompetence of the deep and superficial venous systems bilaterally. [facility] Medical History (Updated 02/03/21 @ 12:[address] Juan Alberto Muñoz MD) Chronic venous insufficiency Postphlebitic syndrome with inflammation Home Medications Augmentin 875-125 Tablet 875 mg PO BID 03/18/20 [History Last Taken Unknown] rosuvastatin 20 mg PO DAILY 03/18/20 [History Last Taken Unknown] Social History Smoking Status: Light Smoker (<10/day) Vital Signs Vital Signs Vital Signs: 02/24/21 07:47 Temperature 98.6 F Temperature Source Temporal Pulse Rate 89 Respiratory Rate 18 Blood Pressure 164/79 H Blood Pressure Mean 107 Weight Weight: 246 lb Body Mass Index (BMI) 35.3 Physical Exam Const alert, oriented x3, no apparent distress and well nourished General Appearance: cooperative, comfortable, well kempt and well developed Orientation / Consciousness: awake, oriented to person, oriented to place and oriented to time HEENT normocephalic Head and Scalp: normal to inspection, normocephalic and atraumatic External Ear: external ears normal Eyes PERRL and EOMs intact bilaterally Pupil: PERRL Neck General: trachea midline Resp normal respiratory effort and no use of accessory muscles Effort and Inspection: able to speak in complete sentences Extremity no calf tenderness Extremity Narrative: Mild swelling and edema noted in the patient's left lower extremity. Chronic hyperpigmentation is also noted in the left gaiter area. Prominent varicosities are also noted. General Extremity: Negative for clubbing or cyanosis Skin Wound Narrative: The wound on the left lateral calf persists. It is smaller in size. There is no sign of infection or cellulitis. There is a small amount of bioburden. The base of the wound is pink and healthy. Dimensions are documented elsewhere. Neuro oriented x3, CN's II-XII intact bilaterally and moves all extremities Psych Appearance: grossly normal, appropriate and well kempt Attitude: calm and engaged Activity / Motor Behavior: appropriate eye contact Speech: normal speech Thought Process: normal thought process Attention / Concentration: attention grossly intact Debridement Note Debridement Note Post-Debridement Measurements and Additional Note: Post-Debridement Measurements/Treatment - Nurse 1 - General Ulcer Assessment Start: 02/03/21 07:48 Freq: Status: Active Protocol: DIGNA Activity Type Activity Date Activity User E-Sign Co-Sign Detail Recorded Client Recorded Date Recorded By Document 02/03/21 07:[address] [facility] [id number] 02/03/21 07:[address] [facility] Document 02/10/21 07:54 PL [id number] 02/10/21 08:00 PL Document 02/17/21 07:50 PL [id number] 02/17/21 07:53 PL Document 02/24/21 07:47 PL [id number] 02/24/21 07:55 PL 02/03/21 02/10/21 02/17/21 07:48 07:54 07:50 - Today's Visit Information Type of service Follow-up Visit Follow-up Visit Follow-up Visit (Physician/VACUUM TECHNICIAN (Physician/VACUUM TECHNICIAN (Physician/VACUUM TECHNICIAN ) ) ) Arrival Mode Ambulatory Ambulatory Ambulatory Transfer Assistance None None None Patient Identification Verified (Name & Yes Yes Yes ) Patient Requires Transmission-Based No No Precautions Safety Precautions NA NA Height and Weight Body Mass Index (BMI) 35.3 35.3 35.3 BMI Classification Obese Obese Obese Temperature (97.8 F-99.1 F) 97.8 F 96.8 F L Temperature Source Temporal Temporal Vital Signs Pulse Rate (60-100) 69 80 83 Pulse Location Monitor Respiratory Rate (12-18) 16 18 18 Respiratory rate source Observation Oxygen Delivery Method Room Air Blood Pressure (90/60-120/80) 164/79 H 150/85 H 165/83 H Blood Pressure Mean 107 106 110 Source Monitor Position Sitting Blood Pressure Location Right Arm History Since Last Visit- (Skip if this is Patient's initial visit) Have you changed medications since your No No No last visit? Any new allergies or adverse reactions No No No Had a fall/change in ADL's that may No No No increase risk of falls Signs or symptoms of abuse and/or No No No neglect since last visit Have you been in the hospital since your No No No last visit? Has dressing in place as prescribed Yes Yes Yes Has compression in place as prescribed Yes Yes Yes Has offloadiing in place as prescribed N/A N/A N/A Experienced any changes in pain level or No No No management Left Footwear Regular Shoe Right Footwear Regular Shoe Pain Scale: 0-10 Numeric Is Patient Pain Free? Yes Yes Yes 02/24/21 07:47 WC - Today's Visit Information Type of service Follow-up Visit (Physician/VACUUM TECHNICIAN ) Arrival Mode Ambulatory Transfer Assistance None Patient Identification Verified (Name & Yes ) Patient Requires Transmission-Based No Precautions Safety Precautions NA Height and Weight Body Mass Index (BMI) 35.3 BMI Classification Obese Temperature (97.8 F-99.1 F) 98.6 F Temperature Source Temporal Vital Signs Pulse Rate (60-100) 89 Pulse Location Respiratory Rate (12-18) 18 Respiratory rate source Oxygen Delivery Method Blood Pressure (90/60-120/80) 164/79 H Blood Pressure Mean 107 Source Position Blood Pressure Location History Since Last Visit- (Skip if this is Patient's initial visit) Have you changed medications since your No last visit? Any new allergies or adverse reactions No Had a fall/change in ADL's that may No increase risk of falls Signs or symptoms of abuse and/or No neglect since last visit Have you been in the hospital since your No last visit? Has dressing in place as prescribed Yes Has compression in place as prescribed Yes Has offloadiing in place as prescribed N/A Experienced any changes in pain level or No management Left Footwear Right Footwear Pain Scale: 0-10 Numeric Is Patient Pain Free? Yes WC - Nurse 1 - General Ulcer Measurement Start: 02/03/21 07:48 Freq: Status: Active Protocol: Activity Type Activity Date Activity User E-Sign Co-Sign Detail Recorded Client Recorded Date Recorded By Document 02/03/21 07:48 [facility] [id number] 02/03/21 07:51 [facility] Document 02/10/21 07:54 PL [id number] 02/10/21 08:00 PL Document 02/17/21 07:50 PL [id number] 02/17/21 07:53 PL Document 02/24/21 07:47 PL [id number] 02/24/21 07:55 PL 02/03/21 02/10/21 02/17/21 07:48 07:54 07:50 Wound Center Nurse 1 #1 Lateral LLE -Combined with other wound No No No -Current Size (cm) - Length 1.8 2.0 2.1 -Current Size (cm) - Width 1.5 2.0 1.9 -Current Size (cm) - Depth 0.3 0.2 0.2 -Total Square Cm 2.70 4.00 3.99 -Photo Taken No No No -Epithelialization None Present None Present None Present -Tunneling No No No -Undermining/Tunneling No No No -Circular Undermining No No No -Exudate Amt Medium Medium Medium -Exudate Type Serosanguineous Serosanguineous Serosanguineous -Wound Margin Distinct, Outline Attached -Granulation Amt Large (67-100%) Large (67-100%) Large (67-100%) -Granulation Quality Red [place] -Slough/Fibrin Yes Yes Yes -Necrosis Amt Small (1-33%) Small (1-33%) Small (1-33%) -Necrotic Tissue Type Adherent Slough Adherent Slough -Texture (Lois-wound Skin Appearance) Assessed, No Abnormality Scarring -Moisture (Lois-wound Skin Appearance) Assessed, Dry/Scaly No Abnormality Maceration -Color (Lois-wound Skin Appearance) Assessed, No Abnormality No Abnormality Mottled -Temperature (Lois-wound Skin No Abnormality No Abnormality No Abnormality Appearance) (Pt Warm) (Pt Warm) (Pt Warm) -Tenderness on Palpation (Lois-wound Yes No Skin Appearance) -Ulcer Cleansing soapy water Soap and water soap and water -Foul Odor after Cleansing No No -Anesthetic Used 5% Lidocaine 5% Lidocaine 4% Lidocaine Gel Gel Solution Lower Limb Edema Present Yes Left Calf (cm) 43 Left Ankle (cm) 25.6 02/24/21 07:47 Wound Center Nurse 1 #1 Lateral LLE -Combined with other wound No -Current Size (cm) - Length 2.0 -Current Size (cm) - Width 1.8 -Current Size (cm) - Depth 0.2 -Total Square Cm 3.60 -Photo Taken No -Epithelialization None Present -Tunneling No -Undermining/Tunneling No -Circular Undermining No -Exudate Amt Medium -Exudate Type Serosanguineous -Wound Margin Thickened & Rolled Under -Granulation Amt Large (67-100%) -Granulation Quality [place],Red -Slough/Fibrin Yes -Necrosis Amt Small (1-33%) -Necrotic Tissue Type Adherent Slough -Texture (Lios-wound Skin Appearance) -Moisture (Lois-wound Skin Appearance) -Color (Lois-wound Skin Appearance) -Temperature (Lois-wound Skin Appearance) -Tenderness on Palpation (Lois-wound Skin Appearance) -Ulcer Cleansing sOAP AND WATER -Foul Odor after Cleansing No -Anesthetic Used 5% Lidocaine Gel Lower Limb Edema Present Left Calf (cm) Left Ankle (cm) WC - Nurse 2 - General Ulcer CM Notes Start: 02/03/21 07:48 Freq: Status: Active Protocol: Activity Type Activity Date Activity User E-Sign Co-Sign Detail Recorded Client Recorded Date Recorded By Document 02/03/21 08:26 PL [id number] 02/03/21 08:27 PL Document 02/10/21 12:28 PL [id number] 02/10/21 12:30 PL Document 02/17/21 12:18 PL [id number] 02/17/21 12:19 PL 02/03/21 02/10/21 02/17/21 08:26 12:28 12:18 Wound Center Nurse 2 #1 Lateral LLE -Time 08:10 08:10 08:05 -Correct Patient Yes Yes Yes -Correct Side, Site, Position Yes Yes Yes -Correct Procedure Yes Yes -Procedure Performed Yes Yes -Type of Procedure Debridement Debridement Debridement -Clinical Debridement Subcutaneous Subcutaneous Subcutaneous -Tissue Removed Subcutaneous Subcutaneous Subcutaneous -Post Debridement (cm) - Length 1.8 2.0 2.1 -Post Debridement (cm) - Width 1.5 2.0 1.9 -Post Debridement (cm) - Depth 0.2 0.2 0.2 -Total Square (Post) (cm) 2.70 4.00 3.99 -Area of Debridement (cm) - Length 1.8 2.0 2.1 -Area of Debridement (cm) - Width 1.5 2.0 1.9 -Total Square (Area) (cm) 2.70 4.00 3.99 -Tunneling No No No -Undermining/Tunneling No No No -Circular Undermining No No No -Wound/Ulcer Outcome Not Healed Not Healed Not Healed -Ulcer Cleansing Rinsed/ Rinsed/ Rinsed/ Irrigated with Irrigated with Irrigated with Saline Saline Saline -Foul Odor after Cleansing No No No -Bioengineered Tissue No No No -Debridement - Subq, 1st 20sq cm Yes Yes Yes Pain Scale: 0-10 Numeric Is Patient Pain Free? Yes Yes Yes WC - Nurse 3 - General Ulcer D/C NN Start: 02/03/21 07:48 Freq: Status: Active Protocol: Activity Type Activity Date Activity User E-Sign Co-Sign Detail Recorded Client Recorded Date Recorded By Document 02/03/21 08:21 MS [id number] 02/03/21 08:23 MS Document 02/10/21 12:30 PL [id number] 02/10/21 12:30 PL Document 02/17/21 08:28 MW [id number] 02/17/21 08:30 MW 02/03/21 02/10/21 02/17/21 08:21 12:30 08:28 Wound Care Nurse 3 #1 Lateral LLE -Ulcer Cleansing Rinsed/ Rinsed/ Rinsed/ Irrigated with Irrigated with Irrigated with Saline Saline Saline -Foul Odor after Cleansing No No No -Negative Pressure Wound Therapy Continue Continue -Setting (mmHg) 125 125 -Negative Pressure is Continuous Continuous Continuous -Primary Dressing Applied Promogran Cecile Matter -Other Dressing cecile Cecile blue foam -NPWT Application Charge ($) NPWT </= 50 sq NPWT </= 50 sq NPWT </= 50 sq cm (disp) cm (disp) cm (disp) -Promogran Cecile Matter 1 Left -Lotion applied to leg before No compression wrap -Compression Wrap Surepress ($) Surepress ($) Treatment Response Procedure Tolerated Well Pain Scale: 0-10 Numeric Is Patient Pain Free? Yes Yes Teaching: Wound Center Dressing Your Wound -Person Taught Patient -Teaching Method Discussion, Demonstration -Response to teaching Verbalize understanding WC - Visit Discharge Discharge Condition Stable Stable Ambulatory Status Ambulatory Ambulatory Transportation Private Auto Accompanied by self Medication Reconcilliation completed & No No provided to patient/care provider Clinical Summary of Care Provided Yes Yes Wound debrided: Left lateral calf Laterality: Left Type of Debridement: Excisional debridement Anesthesia Used: 5% Lidocaine Gel Depth: Down to and including healthy tissue Percentage of wound debrided: 100 Instrument Used: 5mm curette Tissue Removed: Bioburden Severity: Fat Layer Exposed Amount of bleeding with debridement: Mild Bleeding Controlled with: Compression and gauze Patient tolerated procedure: Patient tolerated procedure well Assessment/Plan Assessment/Plan (1) 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: CODE(S): I83.229 - Varicose veins of left lower extremity with both ulcer of unspecified site and inflammation; L97.929 - Non-pressure chronic ulcer of unspecified part of left lower leg with unspecified severity (2) Chronic venous insufficiency: CODE(S): I87.2 - Venous insufficiency (chronic) (peripheral) (3) Postphlebitic syndrome with inflammation: CODE(S): I87.029 - Postthrombotic syndrome with inflammation of unspecified lower extremity (4) Leg swelling: CODE(S): M79.89 - Other specified soft tissue disorders (5) Leg edema: CODE(S): R60.0 - Localized edema (6) Abscess of left leg: CODE(S): L02.416 - Cutaneous abscess of left lower limb (7) Surgical wound present: CODE(S): T14.8XXA - Other injury of unspecified body region, initial encounter (8) Chronic venous insufficiency: CODE(S): I87.2 - Venous insufficiency (chronic) (peripheral) (9) Post-phlebitic dermatosis of both lower extremities: CODE(S): I87.093 - Postthrombotic syndrome with other complications of bilateral lower extremity (10) Hyperpigmentation of skin: CODE(S): L81.9 - Disorder of pigmentation, unspecified (11) Lipodermatosclerosis of both lower extremities: CODE(S): I83.11 - Varicose veins of right lower extremity with inflammation; I83.12 - Varicose veins of left lower extremity with inflammation (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 These are to include leg elevation.? He is to continue sleeping on a flat mattress at night.? His legs are to be elevated to heart level, or higher, even during daytime hours.? This is to be implemented as much as possible.? The patient has been advised to refrain from prolonged, idle standing and sitting.? Activity has been encouraged.? Implementation of the calf and foot muscle pumps has been explained.? Weight loss is also been recommended.? The patient has obtained graduated compression stockings of 20 to 30 mmHg compression.? While the patient's willing compliance may be adequate, he does work long hours each day at the local [employer], which results in long hours of lower extremity dependency, thus enhancing venous hypertension.? There is continued concern as to the patient's occupation and the demands for prolonged idle sitting, which is thought to be a contributing factor to the patient's lack of progress.? He is currently working more than 50 hours/week, 10 hours/day.? This has been discussed with the patient repeatedly.? He admits to often working up to 82 hours/week.? In his own words, the patient admits that his work schedule is excessive.? We have obtained approval for the use of the [facility] for implementation of negative pressure wound therapy.? This was implemented recently, and will be continued.? The patient is to use a SurePress compression wrap, which he will apply on a daily basis, with instructions to avoid placing the tubing under the compression wrap itself.? In this way, we will avoid pressure phenomenon.? We are to continue Cecile topically to the wound on the left lateral calf with each weekly visit.? We will also add collagen powder topically as well.? Approval for the use of EpiFix and PuraPly were sought, but denied by the patient's insurance company.? ? The patient is not eligible for any skin graft substitutes, based upon his insurance plan.? The patient is to return in 1 week for reassessment.? Once again, we have reinforced the need for compression, elevation, avoidance of prolonged idle sitting, etc. We will continue to monitor the patient's wound serially, and to assess the patient's progress.? The patient's wound cultures were positive for Staph aureus and strep species, and the patient has completed a course of Augmentin 875 mg p.o. twice daily for a total of 10 days.? Additionally, due to the persisting swelling, edema, and lymphedema in the patient's left lower extremity, as well as venous hypertension, we requested preauthorization for the use of pneumatic mechanical compression pumps to the lower extremities.? This has been approved, and receipt of the pumps is awaited.? It is felt that this measure will help minimize the swelling in the soft tissues of the distal left lower extremity, and will enhance the progression of healing.? Prior conservative treatments that have been tried include elevation, exercise, compression wraps, and patient education in lymphedema management.? Despite these conservative treatments, the patient continues to present with lymphedema.? I feel as though additional care in the form of long-term daily home compression pump therapy is warranted at this time in order to maintain proper management of this chronic condition.? I am prescribing Lymphapress pneumatic compression pumps, with bilateral leg sleeves and appropriate number of expanders.? This is a chronic condition and the device will be needed indefinitely.? The prognosis is good with the use of this compression pump.? Other modalities have failed.? Therefore the patient appears to meet the medical criteria for the home medical equipment.? Patient smokes lucho roximately 1/2 pack of cigarettes per day, and has been advised to refrain from his smoking habit.? Influenza vaccine was not administered today.? Patient stands 5 feet 10 inches tall.? He weighs 246 pounds.? His BMI is 35.3, which places him in a class II obesity category.? Weight loss has been recommended, and collaboration with the patient's primary care physician has been advised.? The recent implementation of a new electronic medical record system may result in errors, omissions, or inaccuracies in this document.? Total time: 28 minutes.
== END 2021-03-02 23:59 ==
LOC: WC 07:45
PROVIDERS: PCP Family Medicine; Referring Provider Surgery; Visit Provider Surgery
DX: I83.222 Varicose veins of left lower extremity with both ulcer of calf and inflammation (principal); I83.11 Varicose veins of right lower extremity with inflammation; R60.0 Localized edema; L97.222 Non-pressure chronic ulcer of left calf with fat layer exposed; E66.9 Obesity, unspecified; M79.89 Other specified soft tissue disorders; F17.210 Nicotine dependence, cigarettes, uncomplicated; Z79.899 Other long term (current) drug therapy; Z68.35 Body mass index [BMI] 35.0-35.9, adult; I89.0 Lymphedema, not elsewhere classified
CPT/HCPCS: 11042; 97607

== ENCOUNTER 2021-03-31 07:45 | Outpatient (RCR) | payer OTHER, SELFPAY ==
[2021-03-03 00:20] VITALS: BP 164/79; PULSE 89; RESP 18; TEMP 37
[2021-03-03 07:47] VITALS: BP 137/98; PULSE 87; RESP 18; TEMP 36.4; BMI 35.3
--- NOTE | 2021-03-03 08:11 | HP.PCM_ITS ---
History of Present Illness Date of Service: 03/03/21 Chief Complaint: Open wound of the left lateral calf, status-post incision and drainage of abscess History of Wound: This is a 60-year-old male who was admitted to [facility] approximately 1 month prior to presentation with a large a bscess on the left lateral calf. On February 11, 2020, he underwent incision and drainage of the abscess. He spent approximately 5 days in the hospital, and was subsequently discharged on Augmentin. The patient claims to sleep on a flat mattress at night. However, he suffers from chronic swelling and edema in both lower extremities. Additionally, he has a history of superficial thrombophlebitis in the left lower extremity, and has undergone a prior left lower extremity vein stripping procedure in the remote past. Patient has developed chronic skin changes in his lower extremities, which include hyperpigmentation and lipodermatosclerosis in the gaiter areas bilaterally. 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 The patient claims to be relatively active. Management the time of presentation included the use of a wet-to-dry gauze packing daily. It is noted that patient underwent a venous duplex examination during his hospitalization recently, that was negative for any evidence of thrombosis, but indicated valvular incompetence of the deep and superficial venous systems bilaterally. [facility] Medical History (Updated 02/03/21 @ 12:[address] Juan Alberto Muñoz MD) Chronic venous insufficiency Postphlebitic syndrome with inflammation Home Medications Augmentin 875-125 Tablet 875 mg PO BID 03/18/20 [History Last Taken Unknown] rosuvastatin 20 mg PO DAILY 03/18/20 [History Last Taken Unknown] Social History Smoking Status: Light Smoker (<10/day) ROS Constitutional Constitutional: Denies anorexia, change in weight, chills, fever(s), malaise or night sweats Eyes Eyes: Denies change in vision, double vision or eye pain ENT HEENT: Denies dysphagia, epistaxis, headache(s), hearing loss, sinus pain, sinus pressure or sore throat Cardiovascular Cardiovascular: Denies chest pain or palpitations Respiratory/Chest Respiratory/Chest: Denies pain on inspiration, shortness of breath at rest or wheezing Gastrointestinal Gastrointestinal: Denies abdominal pain, hematemesis, hematochezia or nausea Genitourinary Genitourinary: Denies dysuria or hematuria Musculoskeletal Musculoskeletal: Reports loss of height Neurologic Neurologic: Denies headache(s), loss of vision or seizures Endocrine Endocrinology: Denies polyuria Vital Signs Vital Signs Vital Signs: 03/03/21 00:20 03/03/21 07:47 Temperature 98.6 F 97.6 F L Temperature Source Temporal Pulse Rate 89 87 Respiratory Rate 18 18 Blood Pressure 164/79 H 137/98 H Blood Pressure Mean 107 111 Blood Pressure Location Right Arm Weight Weight: 246 lb Body Mass Index (BMI) 35.3 Physical Exam Const alert, oriented x3, no apparent distress and well nourished General Appearance: cooperative and well developed HEENT normocephalic Head and Scalp: normal to inspection, normocephalic and atraumatic Eyes PERRL and EOMs intact bilaterally Neck General: trachea midline Resp normal respiratory effort and no use of accessory muscles Effort and Inspection: able to speak in complete sentences Extremity no calf tenderness Extremity Narrative: Slight swelling and edema are noted in the patient's left lower extremity. General Extremity: Negative for clubbing or cyanosis Skin Wound Narrative: The wound on the left lateral calf persists. It is smaller in size. Dimensions are documented elsewhere. There is no sign of infection or cellulitis. There is a moderate amount of bioburden. Neuro oriented x3, CN's II-XII intact bilaterally, moves all extremities and no focal motor deficits Psych Appearance: grossly normal and appropriate Attitude: calm and engaged Speech: normal speech Thought Process: normal thought process Debridement Note Debridement Note Post-Debridement Measurements and Additional Note: Post-Debridement Measurements/Treatment - Nurse 1 - General Ulcer Assessment Start: 03/03/21 07:44 Freq: Status: Active Protocol: [email or web address] Activity Type Activity Date Activity User E-Sign Co-Sign Detail Recorded Client Recorded Date Recorded By Document 03/03/21 07:47 [place] [id number] 03/03/21 07:51 PL 03/03/21 07:47 - Today's Visit Information Type of service Follow-up Visit (Physician/[facility] ) Arrival Mode Ambulatory Transfer Assistance None Patient Identification Verified (Name & Yes ) Patient Requires Transmission-Based No Precautions Safety Precautions NA Height and Weight Body Mass Index (BMI) 35.3 BMI Classification Obese Vital Signs Temperature (97.8 F-99.1 F) 97.6 F L Temperature Source Temporal Pulse Rate (60-100) 87 Respiratory Rate (12-18) 18 Blood Pressure (90/60-120/80) 137/98 H Blood Pressure Mean 111 History Since Last Visit- (Skip if this is Patient's initial visit) Have you changed medications since your No last visit? Any new allergies or adverse reactions No Had a fall/change in ADL's that may No increase risk of falls Signs or symptoms of abuse and/or No neglect since last visit Have you been in the hospital since your No last visit? Has compression in place as prescribed Yes Has offloadiing in place as prescribed N/A Experienced any changes in pain level or No management Pain Scale: 0-10 Numeric Is Patient Pain Free? Yes WC - Nurse 1 - General Ulcer Measurement Start: 03/03/21 07:44 Freq: Status: Active Protocol: Activity Type Activity Date Activity User E-Sign Co-Sign Detail Recorded Client Recorded Date Recorded By Document 03/03/21 07:47 PL [id number] 03/03/21 07:51 PL 03/03/21 07:47 Wound Center Nurse 1 #1 Lateral LLE -Combined with other wound No -Current Size (cm) - Length 1.8 -Current Size (cm) - Width 1.8 -Current Size (cm) - Depth 0.2 -Total Square Cm 3.24 -Photo Taken No -Epithelialization None Present -Tunneling No -Undermining/Tunneling No -Circular Undermining No -Exudate Amt Medium -Exudate Type Serosanguineous -Granulation Amt Large (67-100%) -Granulation Quality [place] -Slough/Fibrin Yes -Necrosis Amt Small (1-33%) -Necrotic Tissue Type Adherent Slough -Ulcer Cleansing Soap and Water -Anesthetic Used 5% Lidocaine Gel Wound debrided: Left lateral calf Laterality: Left Type of Debridement: Excisional debridement Anesthesia Used: 5% Lidocaine Gel Depth: Down to and including healthy tissue and in the subcutaneous layer Percentage of wound debrided: 100 Instrument Used: 5mm curette Tissue Removed: Bioburden Severity: Fat Layer Exposed Amount of bleeding with debridement: Mild Bleeding Controlled with: Compression and gauze Patient tolerated procedure: Patient tolerated procedure well Assessment/Plan Assessment/Plan (1) 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: CODE(S): I83.229 - Varicose veins of left lower extremity with both ulcer of unspecified site and inflammation; L97.929 - Non-pressure chronic ulcer of unspecified part of left lower leg with unspecified severity (2) Chronic venous insufficiency: CODE(S): I87.2 - Venous insufficiency (chronic) (peripheral) (3) Postphlebitic syndrome with inflammation: CODE(S): I87.029 - Postthrombotic syndrome with inflammation of unspecified lower extremity (4) Leg swelling: CODE(S): M79.89 - Other specified soft tissue disorders (5) Leg edema: CODE(S): R60.0 - Localized edema (6) Abscess of left leg: CODE(S): L02.416 - Cutaneous abscess of left lower limb (7) Surgical wound present: CODE(S): T14.8XXA - Other injury of unspecified body region, initial encounter (8) Chronic venous insufficiency: CODE(S): I87.2 - Venous insufficiency (chronic) (peripheral) (9) Post-phlebitic dermatosis of both lower extremities: CODE(S): I87.093 - Postthrombotic syndrome with other complications of bilateral lower extremity (10) Hyperpigmentation of skin: CODE(S): L81.9 - Disorder of pigmentation, unspecified (11) Lipodermatosclerosis of both lower extremities: CODE(S): I83.11 - Varicose veins of right lower extremity with inflammation; I83.12 - Varicose veins of left lower extremity with inflammation (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 These are to include leg elevation. He is to continue sleeping on a flat mattress at night. His legs are to be elevated to heart level, or higher, even during daytime hours. This is to be implemented as much as possible. The patient has been advised to refrain from prolonged, idle standing and sitting. Activity has been encouraged. Implementation of the calf and foot muscle pumps has been explained. Weight loss is also been recommended. The patient has obtained graduated compression stockings of 20 to 30 mmHg compression. While the patient's willing compliance may be adequate, he does work long hours each day at the local [employer], which results in long hours of lower extremity dependency, thus enhancing venous hypertension. There is continued concern as to the patient's occupation and the demands for prolonged idle sitting, which is thought to be a contributing factor to the patient's lack of progress. He is currently working more than 50 hours/week, 10 hours/day. This has been discussed with the patient repeatedly. He admits to often working up to 82 hours/week. In his own words, the patient admits that his work schedule is excessive. We have obtained approval for the use of the Snap VAC for implementation of negative pressure wound therapy. This was implemented recently, and will be continued. The patient is to use a SurePress compression wrap, which he will apply on a daily basis, with instructions to avoid placing the tubing under the compression wrap itself. In this way, we will avoid pressure phenomenon. We are to continue [place] topically to the wound on the left lateral calf with each weekly visit. We will also add collagen powder topically as well. Approval for the use of EpiFix and PuraPly were sought, but denied by the patient's insurance company. The patient is not eligible for any skin graft substitutes, based upon his insurance plan. The patient is to return in 1 week for reassessment. Once again, we have reinforced the need for compression, elevation, avoidance of prolonged idle sitting, etc. We will continue to monitor the patient's wound serially, and to assess the patient's progress. The patient's wound cultures were positive for Staph aureus and strep species, and the patient has completed a course of Augmentin 875 mg p.o. twice daily for a total of 10 days. Additionally, due to the persisting swelling, edema, and lymphedema in the patient's left lower extremity, as well as venous hypertension, we requested preauthorization for the use of pneumatic mechanical compression pumps to the lower extremities. This has been approved, and receipt of the pumps is awaited. It is felt that this measure will help minimize the swelling in the soft tissues of the distal left lower extremity, and will enhance the progression of healing. Prior conservative treatments that have been tried include elevation, exercise, compression wraps, and patient education in lymphedema management. Despite these conservative treatments, the patient continues to present with lymphedema. I feel as though additional care in the form of long-term daily home compression pump therapy is warranted at this time in order to maintain proper management of this chronic condition. I am prescribing Lymphapress pneumatic compression pumps, with bilateral leg sleeves and appropriate number of expanders. This is a chronic condition and the device will be needed indefinitely. The prognosis is good with the use of this compression pump. Other modalities have failed. Therefore the patient appears to meet the medical criteria for the home medical equipment. We will, once kendra hendricks, seek preauthorization for a skin graft substitute such as EpiFix. Patient smokes approximately 1/2 pack of cigarettes per day, and has been advised to refrain from his smoking habit. Influenza vaccine was not administered today. Patient stands 5 feet 10 inches tall. He weighs 246 pounds. His BMI is 35.3, which places him in a class II obesity category. Weight loss has been recommended, and collaboration with the patient's primary care physician has been advised. The recent implementation of a new electronic medical record system may result in errors, omissions, or inaccuracies in this document. Total time: 29 minutes.
[2021-03-10 07:33] VITALS: BP 145/77; PULSE 87; RESP 16; TEMP 36.6; BMI 35.3
[2021-03-17 07:49] VITALS: BP 148/78; PULSE 83; RESP 18; TEMP 36.6; BMI 35.3
--- NOTE | 2021-03-17 08:15 | HP.PCM_ITS ---
History of Present Illness Date of Service: 03/17/21 Chief Complaint: Open wound of the left lateral calf, status-post incision and drainage of abscess History of Wound: This is a 60-year-old male who was admitted to [facility] approximately 1 month prior to presentation with a large a bscess on the left lateral calf. On February 11, 2020, he underwent incision and drainage of the abscess. He spent approximately 5 days in the hospital, and was subsequently discharged on Augmentin. The patient claims to sleep on a flat mattress at night. However, he suffers from chronic swelling and edema in both lower extremities. Additionally, he has a history of superficial thrombophlebitis in the left lower extremity, and has undergone a prior left lower extremity vein stripping procedure in the remote past. Patient has developed chronic skin changes in his lower extremities, which include hyperpigmentation and lipodermatosclerosis in the gaiter areas bilaterally. 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 The patient claims to be relatively active. Management the time of presentation included the use of a wet-to-dry gauze packing daily. It is noted that patient underwent a venous duplex examination during his hospitalization recently, that was negative for any evidence of thrombosis, but indicated valvular incompetence of the deep and superficial venous systems bilaterally. [facility], [facility] Medical History (Updated 02/03/21 @ 12:[address] Juan Alberto Muñoz MD) Chronic venous insufficiency Postphlebitic syndrome with inflammation Home Medications Augmentin 875-125 Tablet 875 mg PO BID 03/18/20 [History Last Taken Unknown] rosuvastatin 20 mg PO DAILY 03/18/20 [History Last Taken Unknown] Social History Smoking Status: Light Smoker (<10/day) Vital Signs Vital Signs Vital Signs: 03/17/21 07:49 Temperature 97.8 F Temperature Source Temporal Pulse Rate 83 Respiratory Rate 18 Blood Pressure 148/78 H Blood Pressure Mean 101 Weight Weight: 246 lb Body Mass Index (BMI) 35.3 Physical Exam Const alert, oriented x3, no apparent distress and well nourished General Appearance: cooperative, comfortable and well developed Orientation / Consciousness: awake, oriented to person, oriented to place and oriented to time HEENT normocephalic Head and Scalp: normal to inspection, normocephalic and atraumatic Face and Sinus: normal facial exam Nose: external nose normal Eyes PERRL and EOMs intact bilaterally General Eye: normal appearance of both eyes Neck General: trachea midline Resp normal respiratory effort and no use of accessory muscles Effort and Inspection: able to speak in complete sentences Extremity no calf tenderness Extremity Narrative: Slight swelling edema are noted in the patient's left lower extremity. Prominent large varicosities are also noted. Chronic hyperpigmentation and lipodermatosclerosis are also noted in the gaiter area. General Extremity: Negative for clubbing or cyanosis Skin Wound Narrative: The wound on the left lateral calf persists. Dimensions are documented elsewhere. There is no sign of infection or cellulitis. There is a moderate amount of bioburden. There has been no significant change since the patient was last examined. Neuro oriented x3, CN's II-XII intact bilaterally, moves all extremities and no focal motor deficits Psych mental status grossly normal Appearance: grossly normal and appropriate Debridement Note Debridement Note Post-Debridement Measurements and Additional Note: Post-Debridement Measurements/Treatment - Nurse 1 - General Ulcer Assessment Start: 03/03/21 07:44 Freq: Status: Active Protocol: WC.LOWISIAHT Activity Type Activity Date Activity User E-Sign Co-Sign Detail Recorded Client Recorded Date Recorded By Document 03/03/21 07:47 [id number] 03/03/21 07:51 Document 03/10/21 07:33 [facility] [id number] 03/10/21 07:36 [facility] Document 03/17/21 07:49 [id number] 03/17/21 07:55 03/03/21 03/10/21 03/17/21 07:47 07:33 07:49 - Today's Visit Information Type of service Follow-up Visit Nurse-only Follow-up Visit (Physician/NITROGLYCERIN SUPERVISOR Visit (Physician/NITROGLYCERIN SUPERVISOR ) ) Arrival Mode Ambulatory Ambulatory Ambulatory Transfer Assistance None None None Patient Identification Verified (Name & Yes Yes Yes ) Patient Requires Transmission-Based No No No Precautions Safety Precautions NA NA Height and Weight Body Mass Index (BMI) 35.3 35.3 35.3 BMI Classification Obese Obese Obese Vital Signs Temperature (97.8 F-99.1 F) 97.6 F L 98 F 97.8 F Temperature Source Temporal Temporal Temporal Pulse Rate (60-100) 87 87 83 Pulse Location Monitor Respiratory Rate (12-18) 18 16 18 Respiratory rate source Observation Oxygen Delivery Method Room Air Blood Pressure (90/60-120/80) 137/98 H 145/77 H 148/78 H Blood Pressure Mean 111 99 101 Source Monitor Position Sitting Blood Pressure Location Left Arm History Since Last Visit- (Skip if this is Patient's initial visit) Have you changed medications since your No No No last visit? Any new allergies or adverse reactions No No No Had a fall/change in ADL's that may No No No increase risk of falls Signs or symptoms of abuse and/or No No No neglect since last visit Have you been in the hospital since your No No No last visit? Has dressing in place as prescribed Yes Yes Has compression in place as prescribed Yes Yes Yes Has offloadiing in place as prescribed N/A N/A N/A Experienced any changes in pain level or No No No management Left Footwear Regular Shoe Right Footwear Regular Shoe Pain Scale: 0-10 Numeric Is Patient Pain Free? Yes Yes Yes WC - Nurse 1 - General Ulcer Measurement Start: 03/03/21 07:44 Freq: Status: Active Protocol: Activity Type Activity Date Activity User E-Sign Co-Sign Detail Recorded Client Recorded Date Recorded By Document 03/03/21 07:47 PL [id number] 03/03/21 07:51 PL Document 03/17/21 07:49 PL [id number] 03/17/21 07:55 PL 03/03/21 03/17/21 07:47 07:49 Wound Center Nurse 1 #1 Lateral LLE -Combined with other wound No -Current Size (cm) - Length 1.8 2.0 -Current Size (cm) - Width 1.8 1.7 -Current Size (cm) - Depth 0.2 0.2 -Total Square Cm 3.24 3.40 -Photo Taken No -Epithelialization None Present None Present -Tunneling No No -Undermining/Tunneling No No -Circular Undermining No No -Exudate Amt Medium Medium -Exudate Type Serosanguineous Serosanguineous -Wound Margin Thickened & Rolled Under -Granulation Amt Large (67-100%) Large (67-100%) -Granulation Quality [place] -Slough/Fibrin Yes Yes -Necrosis Amt Small (1-33%) Small (1-33%) -Necrotic Tissue Type Adherent Slough Adherent Slough -Texture (Lois-wound Skin Appearance) No Abnormality -Moisture (Lois-wound Skin Appearance) Dry/Scaly -Color (Lois-wound Skin Appearance) No Abnormality -Temperature (Lois-wound Skin No Abnormality Appearance) (Pt Warm) -Tenderness on Palpation (Lois-wound No Skin Appearance) -Ulcer Cleansing Soap and Water Soap And Water -Anesthetic Used 5% Lidocaine 5% Lidocaine Gel Gel WC - Nurse 2 - General Ulcer CM Notes Start: 03/03/21 07:44 Freq: Status: Active Protocol: Activity Type Activity Date Activity User E-Sign Co-Sign Detail Recorded Client Recorded Date Recorded By Document 03/03/21 12:27 PL [id number] 03/03/21 12:30 PL 03/03/21 12:27 Wound Center Nurse 2 -Time 08:03 -Correct Patient Yes -Correct Side, Site, Position Yes -Correct Procedure Yes -Procedure Performed Yes -Type of Procedure Debridement -Clinical Debridement Subcutaneous -Tissue Removed Dermis -Post Debridement (cm) - Length 1.8 -Post Debridement (cm) - Width 1.8 -Post Debridement (cm) - Depth 0.2 -Total Square (Post) (cm) 3.24 -Area of Debridement (cm) - Length 1.8 -Area of Debridement (cm) - Width 1.8 -Total Square (Area) (cm) 3.24 -Tunneling No -Undermining/Tunneling No -Circular Undermining No -Wound/Ulcer Outcome Not Healed -Ulcer Cleansing Rinsed/ Irrigated with Saline -Foul Odor after Cleansing No -Bioengineered Tissue No -Topical Lidocaine (%) 5 -Bleeding Controlled with Pressure -Treatment Response Procedure Tolerated Well -Debridement - Subq, 1st 20sq cm Yes WC - Nurse 3 - General Ulcer D/C NN Start: 03/03/21 07:44 Freq: Status: Active Protocol: Activity Type Activity Date Activity User E-Sign Co-Sign Detail Recorded Client Recorded Date Recorded By Document 03/03/21 12:27 PL [id number] 03/03/21 12:30 PL Document 03/10/21 07:33 [facility] [id number] 03/10/21 07:36 BM 03/03/21 03/10/21 12:27 07:33 Pain Scale: 0-10 Numeric Is Patient Pain Free? Yes Teaching: Wound Center Control Swelling with Leg Elevation -Person Taught Patient -Teaching Method Discussion -Response to teaching Verbalize understanding, Reinforcement needed Wound Care Nurse 3 #1 Lateral LLE -Ulcer Cleansing Rinsed/ soap and water Irrigated with Saline -Foul Odor after Cleansing No No -Negative Pressure Wound Therapy Continue Continue -Setting (mmHg) 125 125 -Negative Pressure is Continuous Continuous -Other Dressing Collogen Powder , [place] -NPWT Application Charge ($) NPWT </= 50 sq NPWT </= 50 sq cm (disp) cm (disp) Left -Compression Wrap Surepress ($) Surepress ($) -Other chema wrap on top of surepress Treatment Response Procedure Tolerated Well Vital Signs Temperature (97.8 F-99.1 F) 98 F Temperature Source Temporal Pulse Rate (60-100) 87 Pulse Location Monitor Respiratory Rate (12-18) 16 Respiratory rate source Observation Oxygen Delivery Method Room Air Blood Pressure (90/60-120/80) 145/77 H Blood Pressure Mean 99 Source Monitor Position Sitting Blood Pressure Location Left Arm WC - Visit Discharge Discharge Condition Stable Stable Ambulatory Status Ambulatory Ambulatory Transportation Private Auto Private Auto Clinical Summary of Care Provided Yes Wound debrided: Left lateral calf Laterality: Left Type of Debridement: Excisional debridement Anesthesia Used: 5% Lidocaine Gel Depth: Down to and including healthy tissue and in the subcutaneous layer Percentage of wound debrided: 100 Instrument Used: 5mm curette Tissue Removed: Bioburden Severity: Fat Layer Exposed Amount of bleeding with debridement: Mild Bleeding Controlled with: Compression and gauze Patient tolerated procedure: Patient tolerated procedure well Assessment/Plan Assessment/Plan (1) 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: CODE(S): I83.229 - Varicose veins of left lower extremity with both ulcer of unspecified site and inflammation; L97.929 - Non-pressure chronic ulcer of unspecified part of left lower leg with unspecified severity (2) Chronic venous insufficiency: CODE(S): I87.2 - Venous insufficiency (chronic) (peripheral) (3) Postphlebitic syndrome with inflammation: CODE(S): I87.029 - Postthrombotic syndrome with inflammation of unspecified lower extremity (4) Leg swelling: CODE(S): M79.89 - Other specified soft tissue disorders (5) Leg edema: CODE(S): R60.0 - Localized edema (6) Abscess of left leg: CODE(S): L02.416 - Cutaneous abscess of left lower limb (7) Surgical wound present: CODE(S): T14.8XXA - Other injury of unspecified body region, initial encounter (8) Chronic venous insufficiency: CODE(S): I87.2 - Venous insufficiency (chronic) (peripheral) (9) Post-phlebitic dermatosis of both lower extremities: CODE(S): I87.093 - Postthrombotic syndrome with other complications of bilateral lower extremity (10) Hyperpigmentation of skin: CODE(S): L81.9 - Disorder of pigmentation, unspecified (11) Lipodermatosclerosis of both lower extremities: CODE(S): I83.11 - Varicose veins of right lower extremity with inflammation; I83.12 - Varicose veins of left lower extremity with inflammation (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 These are to include leg elevation. He is to continue sleeping on a flat mattress at night. His legs are to be elevated to heart level, or higher, even during daytime hours. This is to be implemented as much as possible. The patient has been advised to refrain from prolonged, idle standing and sitting. Activity has been encouraged. Implementation of the calf and foot muscle pumps has been explained. Weight loss is also been recommended. The patient has obtained graduated compression stockings of 20 to 30 mmHg compression. While the patient's willing compliance may be adequate, he does work long hours each day at the local [employer], which results in long hours of lower extremity dependency, thus enhancing venous hypertension. There is continued concern as to the patient's occupation and the demands for prolonged idle sitting, which is thought to be a contributing factor to the patient's lack of progress. He is currently working more than 50 hours/week, 10 hours/day. This has been discussed with the patient repeatedly. He admits to often working up to 82 hours/week. In his own words, the patient admits that his work schedule is excessive. We have obtained approval for the use of the Snap VAC for implementation of negative pressure wound therapy. This was implemented recently. However, we are to transition to the use of quarter-strength Dakin's solution, which will be used to moisten gauze, and applied topically on a daily basis. We are to determine whether this has any benefit over the next several weeks. The patient is to use a SurePress compression wrap, which he will apply on a daily basis. Approval for the use of EpiFix and PuraPly were sought, but denied by the patient's insurance company. The patient is not eligible for any skin graft substitutes, based upon his insurance plan. The patient is to return in 1 week for reassessment. Once again, we have reinforced the need for compression, elevation, avoidance of prolonged idle sitting, etc. We will contin ue to monitor the patient's wound serially, and to assess the patient's progress. The patient's wound cultures were positive for Staph aureus and strep species, and the patient has completed a course of Augmentin 875 mg p.o. twice daily for a total of 10 days. Additionally, due to the persisting swelling, edema, and lymphedema in the patient's left lower extremity, as well as venous hypertension, we requested preauthorization for the use of pneumatic mechanical compression pumps to the lower extremities. Prior conservative treatments that have been tried include elevation, exercise, compression wraps, and patient education in lymphedema management. Despite these conservative treatments, the patient continues to present with lymphedema. I feel as though additional care in the form of long-term daily home compression pump therapy is warranted at this time in order to maintain proper management of this chronic condition. I am prescribing Lymphapress pneumatic compression pumps, with bilateral leg sleeves and appropriate number of expanders. This is a chronic condition and the device will be needed indefinitely. The prognosis is good with the use of this compression pump. Other modalities have failed. Therefore the patient appears to meet the medical criteria for the home medical equipment. We will, once again, seek preauthorization for a skin graft substitute such as EpiFix. Patient smokes approximately 1/2 pack of cigarettes per day, and has been advised to refrain from his smoking habit. Influenza vaccine was not administered today. Patient stands 5 feet 10 inches tall. He weighs 246 pounds. His BMI is 35.3, which places him in a class II obesity category. Weight loss has been recommended, and collaboration with the patient's primary care physician has been advised. The recent implementation of a new electronic medical record system may result in errors, omissions, or inaccuracies in this document. Total time: 28 minutes.
[2021-03-24 07:47] VITALS: BP 153/76; PULSE 75; RESP 18; TEMP 36.6; BMI 35.3
--- NOTE | 2021-03-24 08:12 | PCM.WC.HP ---
History of Present Illness Date of Service: 03/24/21 Chief Complaint: Open wound of the left lateral calf, status-post incision and drainage of abscess History of Wound: This is a 60-year-old male who was admitted to [facility] approximately 1 month prior to presentation with a large abscess on the left lateral calf. On February 11, 2020, he underwent incision and drainage of the abscess. He spent approximately 5 days in the hospital, and was subsequently discharged on Augmentin. The patient claims to sleep on a flat mattress at night. However, he suffers from chronic swelling and edema in both lower extremities. Additionally, he has a history of superficial thrombophlebitis in the left lower extremity, and has undergone a prior left lower extremity vein stripping procedure in the remote past. Patient has developed chronic skin changes in his lower extremities, which include hyperpigmentation and lipodermatosclerosis in the gaiter areas bilaterally. 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 The patient claims to be relatively active. Management the time of presentation included the use of a wet-to-dry gauze packing daily. It is noted that patient underwent a venous duplex examination during his hospitalization recently, that was negative for any evidence of thrombosis, but indicated valvular incompetence of the deep and superficial venous systems bilaterally. [facility] Medical History (Updated 02/03/21 @ 12:[address] Juan Alberto Muñoz MD) Chronic venous insufficiency Postphlebitic syndrome with inflammation Home Medications Augmentin 875-125 Tablet 875 mg PO BID 03/18/20 [History Last Taken Unknown] rosuvastatin 20 mg PO DAILY 03/18/20 [History Last Taken Unknown] Social History Smoking Status: Light Smoker (<10/day) Vital Signs Vital Signs Vital Signs: 03/24/21 07:47 Temperature 97.8 F Temperature Source Temporal Pulse Rate 75 Respiratory Rate 18 Blood Pressure 153/76 H Blood Pressure Mean 101 Weight Weight: 246 lb Body Mass Index (BMI) 35.3 Physical Exam Const alert, oriented x3, no apparent distress and well nourished General Appearance: cooperative, comfortable and well developed Orientation / Consciousness: awake, oriented to person, oriented to place and oriented to time HEENT normocephalic Head and Scalp: normal to inspection, normocephalic and atraumatic Face and Sinus: normal facial exam Nose: external nose normal External Ear: external ears normal Eyes PERRL and EOMs intact bilaterally General Eye: normal appearance of both eyes Resp normal respiratory effort, normal air movement, no retractions and no use of accessory muscles Effort and Inspection: able to speak in complete sentences Extremity no calf tenderness Extremity Narrative: Slight swelling is noted in the patient's left lower extremity. Multiple large, bulging varicosities are also noted. Chronic hyperpigmentation is also present. General Extremity: Negative for clubbing or cyanosis Skin Wound Narrative: The wound on the left lateral calf persists. It is smaller in size. Dimensions are documented elsewhere. There is no sign of infection or cellulitis. There is a small amount of bioburden. The base of the wound is generally pink and healthy in appearance. Neuro oriented x3, CN's II-XII intact bilaterally, moves all extremities and no focal motor deficits Psych Appearance: grossly normal and appropriate Attitude: calm and engaged Activity / Motor Behavior: appropriate eye contact Speech: normal speech Mood & Affect: euthymic mood Thought Process: normal thought process Debridement Note Debridement Note Post-Debridement Measurements and Additional Note: Post-Debridement Measurements/Treatment - Nurse 1 - General Ulcer Assessment Start: 03/03/21 07:44 Freq: Status: Active Protocol: .JAMEL Activity Type Activity Date Activity User E-Sign Co-Sign Detail Recorded Client Recorded Date Recorded By Document 03/03/21 07:47 [id number] 03/03/21 07:51 Document 03/10/21 07:33 [facility] [id number] 03/10/21 07:36 [facility] Document 03/17/21 07:49 [id number] 03/17/21 07:55 PL Document 03/24/21 07:47 [id number] 03/24/21 07:51 PL 03/03/21 03/10/21 03/17/21 07:47 07:33 07:49 - Today's Visit Information Type of service Follow-up Visit Nurse-only Follow-up Visit (Physician/RISK PREVENTION ENGINEER Visit (Physician/RISK PREVENTION ENGINEER ) ) Arrival Mode Ambulatory Ambulatory Ambulatory Transfer Assistance None None None Patient Identification Verified (Name & Yes Yes Yes ) Patient Requires Transmission-Based No No No Precautions Safety Precautions NA NA Height and Weight Body Mass Index (BMI) 35.3 35.3 35.3 BMI Classification Obese Obese Obese Vital Signs Temperature (97.8 F-99.1 F) 97.6 F L 98 F 97.8 F Temperature Source Temporal Temporal Temporal Pulse Rate (60-100) 87 87 83 Pulse Location Monitor Respiratory Rate (12-18) 18 16 18 Respiratory rate source Observation Oxygen Delivery Method Room Air Blood Pressure (90/60-120/80) 137/98 H 145/77 H 148/78 H Blood Pressure Mean 111 99 101 Source Monitor Position Sitting Blood Pressure Location Left Arm History Since Last Visit- (Skip if this is Patient's initial visit) Have you changed medications since your No No No last visit? Any new allergies or adverse reactions No No No Had a fall/change in ADL's that may No No No increase risk of falls Signs or symptoms of abuse and/or No No No neglect since last visit Have you been in the hospital since your No No No last visit? Has dressing in place as prescribed Yes Yes Has compression in place as prescribed Yes Yes Yes Has offloadiing in place as prescribed N/A N/A N/A Experienced any changes in pain level or No No No management Left Footwear Regular Shoe Right Footwear Regular Shoe Pain Scale: 0-10 Numeric Is Patient Pain Free? Yes Yes Yes 03/24/21 07:47 WC - Today's Visit Information Type of service Follow-up Visit (Physician/RISK PREVENTION ENGINEER ) Arrival Mode Ambulatory Transfer Assistance None Patient Identification Verified (Name & Yes ) Patient Requires Transmission-Based Yes Precautions Safety Precautions NA Height and Weight Body Mass Index (BMI) 35.3 BMI Classification Obese Vital Signs Temperature (97.8 F-99.1 F) 97.8 F Temperature Source Temporal Pulse Rate (60-100) 75 Pulse Location Respiratory Rate (12-18) 18 Respiratory rate source Oxygen Delivery Method Blood Pressure (90/60-120/80) 153/76 H Blood Pressure Mean 101 Source Position Blood Pressure Location History Since Last Visit- (Skip if this is Patient's initial visit) Have you changed medications since your No last visit? Any new allergies or adverse reactions No Had a fall/change in ADL's that may No increase risk of falls Signs or symptoms of abuse and/or No neglect since last visit Have you been in the hospital since your No last visit? Has dressing in place as prescribed Yes Has compression in place as prescribed Yes Has offloadiing in place as prescribed N/A Experienced any changes in pain level or No management Left Footwear Right Footwear Pain Scale: 0-10 Numeric Is Patient Pain Free? WC - Nurse 1 - General Ulcer Measurement Start: 03/03/21 07:44 Freq: Status: Active Protocol: Activity Type Activity Date Activity User E-Sign Co-Sign Detail Recorded Client Recorded Date Recorded By Document 03/03/21 07:47 PL [id number] 03/03/21 07:51 PL Document 03/17/21 07:49 PL [id number] 03/17/21 07:55 PL Document 03/24/21 07:47 PL [id number] 03/24/21 07:51 PL 03/03/21 03/17/21 03/24/21 07:47 07:49 07:47 Wound Center Nurse 1 #1 Lateral LLE -Combined with other wound No No -Current Size (cm) - Length 1.8 2.0 1.6 -Current Size (cm) - Width 1.8 1.7 1.8 -Current Size (cm) - Depth 0.2 0.2 0.2 -Total Square Cm 3.24 3.40 2.88 -Photo Taken No No -Epithelialization None Present None Present None Present -Tunneling No No No -Undermining/Tunneling No No No -Circular Undermining No No No -Exudate Amt Medium Medium Medium -Exudate Type Serosanguineous Serosanguineous Serosanguineous -Wound Margin Thickened & Thickened & Rolled Under Rolled Under -Granulation Amt Large (67-100%) Large (67-100%) Large (67-100%) -Granulation Quality [place] -Slough/Fibrin Yes Yes Yes -Necrosis Amt Small (1-33%) Small (1-33%) Small (1-33%) -Necrotic Tissue Type Adherent Slough Adherent Slough Adherent Slough -Texture (Lois-wound Skin Appearance) No Abnormality No Abnormality -Moisture (Lois-wound Skin Appearance) Dry/Scaly No Abnormality -Color (Lois-wound Skin Appearance) No Abnormality No Abnormality -Temperature (Lois-wound Skin No Abnormality No Abnormality Appearance) (Pt Warm) (Pt Warm) -Tenderness on Palpation (Lois-wound No Skin Appearance) -Ulcer Cleansing Soap and Water Soap And Water Rinsed/ Irrigated with Saline -Foul Odor after Cleansing No -Anesthetic Used 5% Lidocaine 5% Lidocaine 5% Lidocaine Gel Gel Gel WC - Nurse 2 - General Ulcer CM Notes Start: 03/03/21 07:44 Freq: Status: Active Protocol: Activity Type Activity Date Activity User E-Sign Co-Sign Detail Recorded Client Recorded Date Recorded By Document 03/03/21 12:27 PL [id number] 03/03/21 12:30 PL 03/03/21 12:27 Wound Center Nurse 2 -Time 08:03 -Correct Patient Yes -Correct Side, Site, Position Yes -Correct Procedure Yes -Procedure Performed Yes -Type of Procedure Debridement -Clinical Debridement Subcutaneous -Tissue Removed Dermis -Post Debridement (cm) - Length 1.8 -Post Debridement (cm) - Width 1.8 -Post Debridement (cm) - Depth 0.2 -Total Square (Post) (cm) 3.24 -Area of Debridement (cm) - Length 1.8 -Area of Debridement (cm) - Width 1.8 -Total Square (Area) (cm) 3.24 -Tunneling No -Undermining/Tunneling No -Circular Undermining No -Wound/Ulcer Outcome Not Healed -Ulcer Cleansing Rinsed/ Irrigated with Saline -Foul Odor after Cleansing No -Bioengineered Tissue No -Topical Lidocaine (%) 5 -Bleeding Controlled with Pressure -Treatment Response Procedure Tolerated Well -Debridement - Subq, 1st 20sq cm Yes - Nurse 3 - General Ulcer D/C NN Start: 03/03/21 07:44 Freq: Status: Active Protocol: Activity Type Activity Date Activity User E-Sign Co-Sign Detail Recorded Client Recorded Date Recorded By Document 03/03/21 12:27 PL [id number] 03/03/21 12:30 PL Document 03/10/21 07:33 [facility] [id number] 03/10/21 07:36 [facility] Document 03/17/21 08:15 PL [id number] 03/18/21 06:55 PL 03/03/21 03/10/21 03/17/21 12:27 07:33 08:15 Pain Scale: 0-10 Numeric Is Patient Pain Free? Yes Yes Teaching: Wound Center Control Swelling with Leg Elevation -Person Taught Patient -Teaching Method Discussion -Response to teaching Verbalize understanding, Reinforcement needed Wound Care Nurse 3 #1 Lateral LLE -Ulcer Cleansing Rinsed/ soap and water Rinsed/ Irrigated with Irrigated with Saline Saline -Foul Odor after Cleansing No No No -Negative Pressure Wound Therapy Continue Continue -Setting (mmHg) 125 125 -Negative Pressure is Continuous Continuous -Other Dressing Collogen Powder , [place] -Primary Dressing Covered/Secured with Dry Gauze, Secured with Tape -NPWT Application Charge ($) NPWT </= 50 sq NPWT </= 50 sq cm (disp) cm (disp) Left -Compression Wrap Surepress ($) Surepress ($) Surepress ($) -Other chema wrap on top of surepress Treatment Response Procedure Tolerated Well Vital Signs Temperature (97.8 F-99.1 F) 98 F Temperature Source Temporal Pulse Rate (60-100) 87 Pulse Location Monitor Respiratory Rate (12-18) 16 Respiratory rate source Observation Oxygen Delivery Method Room Air Blood Pressure (90/60-120/80) 145/77 H Blood Pressure Mean 99 Source Monitor Position Sitting Blood Pressure Location Left Arm WC - Visit Discharge Discharge Condition Stable Stable Ambulatory Status Ambulatory Ambulatory Transportation Private Auto Private Auto Clinical Summary of Care Provided Yes Wound debrided: Left lateral calf Laterality: Left Type of Debridement: Excisional debridement Anesthesia Used: 5% Lidocaine Gel Depth: Down to and including healthy tissue and in the subcutaneous layer Percentage of wound debrided: 100 Instrument Used: 5mm curette Tissue Removed: Bioburden Severity: Fat Layer Exposed Amount of bleeding with debridement: Mild Bleeding Controlled with: Compression and gauze Patient tolerated procedure: Patient tolerated procedure well Assessment/Plan Assessment/Plan (1) 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: CODE(S): I83.229 - Varicose veins of left lower extremity with both ulcer of unspecified site and inflammation; L97.929 - Non-pressure chronic ulcer of unspecified part of left lower leg with unspecified severity (2) Chronic venous insufficiency: CODE(S): I87.2 - Venous insufficiency (chronic) (peripheral) (3) Postphlebitic syndrome with inflammation: CODE(S): I87.029 - Postthrombotic syndrome with inflammation of unspecified lower extremity (4) Leg swelling: CODE(S): M79.89 - Other specified soft tissue disorders (5) Leg edema: CODE(S): R60.0 - Localized edema (6) Abscess of left leg: CODE(S): L02.416 - Cutaneous abscess of left lower limb (7) Surgical wound present: CODE(S): T14.8XXA - Other injury of unspecified body region, initial encounter (8) Chronic venous insufficiency: CODE(S): I87.2 - Venous insufficiency (chronic) (peripheral) (9) Post-phlebitic dermatosis of both lower extremities: CODE(S): I87.093 - Postthrombotic syndrome with other complications of bilateral lower extremity (10) Hyperpigmentation of skin: CODE(S): L81.9 - Disorder of pigmentation, unspecified (11) Lipodermatosclerosis of both lower extremities: CODE(S): I83.11 - Varicose veins of right lower extremity with inflammation; I83.12 - Varicose veins of left lower extremity with inflammation (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 These are to include leg elevation. He is to continue sleeping on a flat mattress at night. His legs are to be elevated to heart level, or higher, even during daytime hours. This is to be implemented as much as possible. The patient has been advised to refrain from prolonged, idle standing and sitting. Activity has been encouraged. Implementation of the calf and foot muscle pumps has been explained. Weight loss is also been recommended. The patient has obtained graduated compression stockings of 20 to 30 mmHg compression. While the patient's willing compliance may be adequate, he does work long hours each day at the local [employer], which results in long hours of lower extremity dependency, thus enhancing venous hypertension. There is continued concern as to the patient's occupation and the demands for prolonged idle sitting, which is thought to be a contributing factor to the patient's lack of progress. He is currently working more than 50 hours/week, 10 hours/day. This has been discussed with the patient repeatedly. He admits to often working up to 82 hours/week. In his own words, the patient admits that his work schedule is excessive. We have obtained approval for the use of the Snap VAC for implementation of negative pressure wound therapy. This was implemented recently. However, we are to continue the use of quarter-strength Dakin's solution, which will be used to moisten gauze, and applied topically on a daily basis. We are to determine whether this has any benefit over the next several weeks. Thus far, it is proved to be of benefit. The patient is to use a SurePress compression wrap, which he will apply on a daily basis. Approval for the use of EpiFix and PuraPly were sought, but denied by the patient's insurance company several times. The patient is not eligible for any skin graft substitutes, based upon his insurance plan. The patient is to return in 1 week for reassessment. Once again, we have reinforced the need for compression, elevation, avoidance of prolonged idle sitting, etc. We will continue to monitor the patient's wound serially, and to assess the patient's progress. The patient's wound cultures were positive for Staph aureus and strep species, and the patient has completed a course of Augmentin 875 mg p.o. twice daily for a total of 10 days. Additionally, due to the persisting swelling, edema, and lymphedema in the patient's left lower extremity, as well as venous hypertension, we requested preauthorization for the use of pneumatic mechanical compression pumps to the lower extremities. Prior conservative treatments that have been tried include elevation, exercise, compression wraps, and patient education in lymphedema management. Despite these conservative treatments, the patient continues to present with lymphedema. I feel as though additional care in the form of long-term daily home compression pump therapy is warranted at this time in order to maintain proper management of this chronic condition. I am prescribing Lymphapress pneumatic compression pumps, with bilateral leg sleeves and appropriate number of expanders. This is a chronic condition and the device will be needed indefinitely. The prognosis is good with the use of this compression pump. Other modalities have failed. Therefore the patient appears to meet the medical criteria for the home medical equipment. Patient smokes approximately 1/2 pack of cigarettes per day, and has been advised to refrain from his smoking habit. Influenza vaccine was not administered today. Patient stands 5 feet 10 inches tall. He weighs 246 pounds. His BMI is 35.3, which places him in a class II obesity category. Weight loss has been recommended, and collaboration with the patient's primary care physician has been advised. The recent implementation of a new electronic medical record system may result in errors, omissions, or inaccuracies in this document. Total time: 27 minutes.
[2021-03-31 07:47] VITALS: BP 139/76; PULSE 78; RESP 18; TEMP 36.6; BMI 35.3
--- NOTE | 2021-03-31 08:08 | PCM.WC.HP ---
History of Present Illness Date of Service: 03/31/21 Chief Complaint: Open wound of the left lateral calf, status-post incision and drainage of abscess History of Wound: This is a 60-year-old male who was admitted to [facility] approximately 1 month prior to presentation with a large abscess on the left lateral calf. On February 11, 2020, he underwent incision and drainage of the abscess. He spent approximately 5 days in the hospital, and was subsequently discharged on Augmentin. The patient claims to sleep on a flat mattress at night. However, he suffers from chronic swelling and edema in both lower extremities. Additionally, he has a history of superficial thrombophlebitis in the left lower extremity, and has undergone a prior left lower extremity vein stripping procedure in the remote past. Patient has developed chronic skin changes in his lower extremities, which include hyperpigmentation and lipodermatosclerosis in the gaiter areas bilaterally. 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 The patient claims to be relatively active. Management the time of presentation included the use of a wet-to-dry gauze packing daily. It is noted that patient underwent a venous duplex examination during his hospitalization recently, that was negative for any evidence of thrombosis, but indicated valvular incompetence of the deep and superficial venous systems bilaterally. [facility] Medical History (Updated 03/31/21 @ 08:[address] Juan Alberto Muñoz MD) Chronic venous insufficiency Postphlebitic syndrome with inflammation Home Medications Augmentin 875-125 Tablet 875 mg PO BID 03/18/20 [History Last Taken Unknown] rosuvastatin 20 mg PO DAILY 03/18/20 [History Last Taken Unknown] Social History Smoking Status: Light Smoker (<10/day) Vital Signs Vital Signs Vital Signs: 03/31/21 07:47 Temperature 97.8 F Temperature Source Oral Pulse Rate 78 Respiratory Rate 18 Blood Pressure 139/76 H Blood Pressure Mean 97 Weight Weight: 246 lb Body Mass Index (BMI) 35.3 Physical Exam Const alert, oriented x3, no apparent distress and well nourished General Appearance: cooperative, comfortable and well developed Orientation / Consciousness: awake, oriented to person, oriented to place and oriented to time HEENT normocephalic Head and Scalp: normal to inspection, normocephalic and atraumatic External Ear: external ears normal Eyes PERRL and EOMs intact bilaterally General Eye: normal appearance of both eyes Resp normal respiratory effort, normal air movement, no retractions and no use of accessory muscles Effort and Inspection: able to speak in complete sentences Extremity no calf tenderness Extremity Narrative: Slight swelling and edema are noted in the patient's left lower extremity. Chronic hyperpigmentation is noted distally in the left lower extremity. Multiple large varicosities are also noted. General Extremity: Negative for clubbing or cyanosis Skin Wound Narrative: The wound persists on the patient's left lateral calf. It is smaller in size. Dimensions are documented elsewhere. There is no sign of infection or cellulitis. The base of the wound is pink and healthy in appearance, with a moderate amount of bioburden. Neuro oriented x3, CN's II-XII intact bilaterally, moves all extremities and no focal motor deficits Speech: speech normal Psych mental status grossly normal Appearance: grossly normal and appropriate Activity / Motor Behavior: appropriate eye contact Speech: normal speech Mood & Affect: euthymic mood Thought Process: normal thought process Debridement Note Debridement Note Post-Debridement Measurements and Additional Note: Post-Debridement Measurements/Treatment - Nurse 1 - General Ulcer Assessment Start: 03/03/21 07:44 Freq: Status: Active Protocol: DIGNA Activity Type Activity Date Activity User E-Sign Co-Sign Detail Recorded Client Recorded Date Recorded By Document 03/03/21 07:47 [id number] 03/03/21 07:51 Document 03/10/21 07:33 [facility] [id number] 03/10/21 07:36 [facility] Document 03/17/21 07:[address] PL [id number] 03/17/21 07:55 PL Document 03/24/21 07:47 [id number] 03/24/21 07:51 Document 03/31/21 07:47 PL [id number] 03/31/21 07:51 PL 03/03/21 03/10/21 03/17/21 07:47 07:33 07:49 - Today's Visit Information Type of service Follow-up Visit Nurse-only Follow-up Visit (Physician/COLLECTION CARD CLERK Visit (Physician/COLLECTION CARD CLERK ) ) Arrival Mode Ambulatory Ambulatory Ambulatory Transfer Assistance None None None Patient Identification Verified (Name & Yes Yes Yes ) Patient Requires Transmission-Based No No No Precautions Safety Precautions NA NA Height and Weight Body Mass Index (BMI) 35.3 35.3 35.3 BMI Classification Obese Obese Obese Vital Signs Temperature (97.8 F-99.1 F) 97.6 F L 98 F 97.8 F Temperature Source Temporal Temporal Temporal Pulse Rate (60-100) 87 87 83 Pulse Location Monitor Respiratory Rate (12-18) 18 16 18 Respiratory rate source Observation Oxygen Delivery Method Room Air Blood Pressure (90/60-120/80) 137/98 H 145/77 H 148/78 H Blood Pressure Mean 111 99 101 Source Monitor Position Sitting Blood Pressure Location Left Arm History Since Last Visit- (Skip if this is Patient's initial visit) Have you changed medications since your No No No last visit? Any new allergies or adverse reactions No No No Had a fall/change in ADL's that may No No No increase risk of falls Signs or symptoms of abuse and/or No No No neglect since last visit Have you been in the hospital since your No No No last visit? Has dressing in place as prescribed Yes Yes Has compression in place as prescribed Yes Yes Yes Has offloadiing in place as prescribed N/A N/A N/A Experienced any changes in pain level or No No No management Left Footwear Regular Shoe Right Footwear Regular Shoe Pain Scale: 0-10 Numeric Is Patient Pain Free? Yes Yes Yes 03/24/21 03/31/21 07:47 07:47 WC - Today's Visit Information Type of service Follow-up Visit Follow-up Visit (Physician/COLLECTION CARD CLERK (Physician/COLLECTION CARD CLERK ) ) Arrival Mode Ambulatory Ambulatory Transfer Assistance None None Patient Identification Verified (Name & Yes Yes ) Patient Requires Transmission-Based Yes No Precautions Safety Precautions NA NA Height and Weight Body Mass Index (BMI) 35.3 35.3 BMI Classification Obese Obese Vital Signs Temperature (97.8 F-99.1 F) 97.8 F 97.8 F Temperature Source Temporal Oral Pulse Rate (60-100) 75 78 Pulse Location Respiratory Rate (12-18) 18 18 Respiratory rate source Oxygen Delivery Method Blood Pressure (90/60-120/80) 153/76 H 139/76 H Blood Pressure Mean 101 97 Source Position Blood Pressure Location History Since Last Visit- (Skip if this is Patient's initial visit) Have you changed medications since your No No last visit? Any new allergies or adverse reactions No No Had a fall/change in ADL's that may No No increase risk of falls Signs or symptoms of abuse and/or No No neglect since last visit Have you been in the hospital since your No No last visit? Has dressing in place as prescribed Yes Yes Has compression in place as prescribed Yes Yes Has offloadiing in place as prescribed N/A N/A Experienced any changes in pain level or No No management Left Footwear Right Footwear Pain Scale: 0-10 Numeric Is Patient Pain Free? Yes WC - Nurse 1 - General Ulcer Measurement Start: 03/03/21 07:44 Freq: Status: Active Protocol: Activity Type Activity Date Activity User E-Sign Co-Sign Detail Recorded Client Recorded Date Recorded By Document 03/03/21 07:47 PL [id number] 03/03/21 07:51 PL Document 03/17/21 07:49 PL [id number] 03/17/21 07:55 PL Document 03/24/21 07:47 PL [id number] 03/24/21 07:51 PL Document 03/31/21 07:47 PL [id number] 03/31/21 07:51 PL 03/03/21 03/17/21 03/24/21 07:47 07:49 07:47 Wound Center Nurse 1 #1 Lateral LLE -Combined with other wound No No -Current Size (cm) - Length 1.8 2.0 1.6 -Current Size (cm) - Width 1.8 1.7 1.8 -Current Size (cm) - Depth 0.2 0.2 0.2 -Total Square Cm 3.24 3.40 2.88 -Photo Taken No No -Epithelialization None Present None Present None Present -Tunneling No No No -Undermining/Tunneling No No No -Circular Undermining No No No -Exudate Amt Medium Medium Medium -Exudate Type Serosanguineous Serosanguineous Serosanguineous -Wound Margin Thickened & Thickened & Rolled Under Rolled Under -Granulation Amt Large (67-100%) Large (67-100%) Large (67-100%) -Granulation Quality [place] -Slough/Fibrin Yes Yes Yes -Necrosis Amt Small (1-33%) Small (1-33%) Small (1-33%) -Necrotic Tissue Type Adherent Slough Adherent Slough Adherent Slough -Texture (Lois-wound Skin Appearance) No Abnormality No Abnormality -Moisture (Lois-wound Skin Appearance) Dry/Scaly No Abnormality -Color (Lois-wound Skin Appearance) No Abnormality No Abnormality -Temperature (Lois-wound Skin No Abnormality No Abnormality Appearance) (Pt Warm) (Pt Warm) -Tenderness on Palpation (Lois-wound No Skin Appearance) -Ulcer Cleansing Soap and Water Soap And Water Rinsed/ Irrigated with Saline -Foul Odor after Cleansing No -Anesthetic Used 5% Lidocaine 5% Lidocaine 5% Lidocaine Gel Gel Gel 03/31/21 07:47 Wound Center Nurse 1 #1 Lateral LLE -Combined with other wound No -Current Size (cm) - Length 1.4 -Current Size (cm) - Width 1.3 -Current Size (cm) - Depth 0.2 -Total Square Cm 1.82 -Photo Taken No -Epithelialization None Present -Tunneling No -Undermining/Tunneling No -Circular Undermining No -Exudate Amt Medium -Exudate Type Serosanguineous -Wound Margin Thickened & Rolled Under -Granulation Amt Large (67-100%) -Granulation Quality [place] -Slough/Fibrin Yes -Necrosis Amt Small (1-33%) -Necrotic Tissue Type Adherent Slough -Texture (Lois-wound Skin Appearance) No Abnormality -Moisture (Lois-wound Skin Appearance) Dry/Scaly -Color (Lois-wound Skin Appearance) No Abnormality -Temperature (Lois-wound Skin No Abnormality Appearance) (Pt Warm) -Tenderness on Palpation (Lois-wound No Skin Appearance) -Ulcer Cleansing Rinsed/ Irrigated with Saline -Foul Odor after Cleansing No -Anesthetic Used 5% Lidocaine Gel WC - Nurse 2 - General Ulcer CM Notes Start: 03/03/21 07:44 Freq: Status: Active Protocol: Activity Type Activity Date Activity User E-Sign Co-Sign Detail Recorded Client Recorded Date Recorded By Document 03/03/21 12:27 PL [id number] 03/03/21 12:30 PL Document 03/24/21 10:02 PL [id number] 03/24/21 10:03 PL 03/03/21 03/24/21 12:27 10:02 Wound Center Nurse 2 -Time 08:03 08:07 -Correct Patient Yes Yes -Correct Side, Site, Position Yes Yes -Correct Procedure Yes Yes -Procedure Performed Yes Yes -Type of Procedure Debridement Debridement -Clinical Debridement Subcutaneous Subcutaneous -Tissue Removed Dermis Subcutaneous -Post Debridement (cm) - Length 1.8 1.6 -Post Debridement (cm) - Width 1.8 1.8 -Post Debridement (cm) - Depth 0.2 0.2 -Total Square (Post) (cm) 3.24 2.88 -Area of Debridement (cm) - Length 1.8 1.6 -Area of Debridement (cm) - Width 1.8 1.8 -Total Square (Area) (cm) 3.24 2.88 -Tunneling No No -Undermining/Tunneling No No -Circular Undermining No No -Wound/Ulcer Outcome Not Healed Not Healed -Ulcer Cleansing Rinsed/ Rinsed/ Irrigated with Irrigated with Saline Saline -Foul Odor after Cleansing No No -Bioengineered Tissue No No -Topical Lidocaine (%) 5 -Bleeding Controlled with Pressure -Treatment Response Procedure Tolerated Well -Debridement - Subq, 1st 20sq cm Yes Yes Pain Scale: 0-10 Numeric Is Patient Pain Free? Yes - Nurse 3 - General Ulcer D/C NN Start: 03/03/21 07:44 Freq: Status: Active Protocol: Activity Type Activity Date Activity User E-Sign Co-Sign Detail Recorded Client Recorded Date Recorded By Document 03/03/21 12:27 [id number] 03/03/21 12:30 Document 03/10/21 07:33 [facility] [id number] 03/10/21 07:36 [facility] Document 03/17/21 08:15 PL [id number] 03/18/21 06:55 Document 03/24/21 10:03 [id number] 03/24/21 10:03 PL 03/03/21 03/10/21 03/17/21 12:27 07:33 08:15 Pain Scale: 0-10 Numeric Is Patient Pain Free? Yes Yes Teaching: Wound Center Control Swelling with Leg Elevation -Person Taught Patient -Teaching Method Discussion -Response to teaching Verbalize understanding, Reinforcement needed Wound Care Nurse 3 #1 Lateral LLE -Ulcer Cleansing Rinsed/ soap and water Rinsed/ Irrigated with Irrigated with Saline Saline -Foul Odor after Cleansing No No No -Negative Pressure Wound Therapy Continue Continue -Setting (mmHg) 125 125 -Negative Pressure is Continuous Continuous -Other Dressing Collogen Powder , [place] -Primary Dressing Covered/Secured with Dry Gauze, Secured with Tape -NPWT Application Charge ($) NPWT </= 50 sq NPWT </= 50 sq cm (disp) cm (disp) Left -Compression Wrap Surepress ($) Surepress ($) Surepress ($) -Other chema wrap on top of surepress Treatment Response Procedure Tolerated Well Vital Signs Temperature (97.8 F-99.1 F) 98 F Temperature Source Temporal Pulse Rate (60-100) 87 Pulse Location Monitor Respiratory Rate (12-18) 16 Respiratory rate source Observation Oxygen Delivery Method Room Air Blood Pressure (90/60-120/80) 145/77 H Blood Pressure Mean 99 Source Monitor Position Sitting Blood Pressure Location Left Arm WC - Visit Discharge Discharge Condition Stable Stable Ambulatory Status Ambulatory Ambulatory Transportation [facility] [facility] Clinical Summary of Care Provided Yes 03/24/21 10:03 Pain Scale: 0-10 Numeric Is Patient Pain Free? Yes Teaching: Wound Center Control Swelling with Leg Elevation -Person Taught -Teaching Method -Response to teaching Wound Care Nurse 3 #1 Lateral LLE -Ulcer Cleansing Rinsed/ Irrigated with Saline -Foul Odor after Cleansing No -Negative Pressure Wound Therapy -Setting (mmHg) -Negative Pressure is -Other Dressing Moist to dry -Primary Dressing Covered/Secured with Dry Gauze, Secured with Tape -NPWT Application Charge ($) Left -Compression Wrap Surepress ($) -Other Treatment Response Vital Signs Temperature (97.8 F-99.1 F) Temperature Source Pulse Rate (60-100) Pulse Location Respiratory Rate (12-18) Respiratory rate source Oxygen Delivery Method Blood Pressure (90/60-120/80) Blood Pressure Mean Source Position Blood Pressure Location WC - Visit Discharge Discharge Condition Stable Ambulatory Status Ambulatory Transportation [employer] Clinical Summary of Care Provided Yes Wound debrided: Left lateral calf Laterality: Left Type of Debridement: Excisional debridement Anesthesia Used: 5% Lidocaine Gel Depth: Down to and including healthy tissue and in the subcutaneous layer Percentage of wound debrided: 100 Instrument Used: 5mm curette Tissue Removed: Bioburden Severity: Fat Layer Exposed Amount of bleeding with debridement: Mild Bleeding Controlled with: Compression and gauze Patient tolerated procedure: Patient tolerated procedure well Assessment/Plan Assessment/Plan (1) 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: CODE(S): I83.229 - Varicose veins of left lower extremity with both ulcer of unspecified site and inflammation; L97.929 - Non-pressure chronic ulcer of unspecified part of left lower leg with unspecified severity (2) Chronic venous insufficiency: CODE(S): I87.2 - Venous insufficiency (chronic) (peripheral) (3) Postphlebitic syndrome with inflammation: CODE(S): I87.029 - Postthrombotic syndrome with inflammation of unspecified lower extremity (4) Leg swelling: CODE(S): M79.89 - Other specified soft tissue disorders (5) Leg edema: CODE(S): R60.0 - Localized edema (6) Abscess of left leg: CODE(S): L02.416 - Cutaneous abscess of left lower limb (7) Surgical wound present: CODE(S): T14.8XXA - Other injury of unspecified body region, initial encounter (8) Chronic venous insufficiency: CODE(S): I87.2 - Venous insufficiency (chronic) (peripheral) (9) Post-phlebitic dermatosis of both lower extremities: CODE(S): I87.093 - Postthrombotic syndrome with other complications of bilateral lower extremity (10) Hyperpigmentation of skin: CODE(S): L81.9 - Disorder of pigmentation, unspecified (11) Lipodermatosclerosis of both lower extremities: CODE(S): I83.11 - Varicose veins of right lower extremity with inflammation; I83.12 - Varicose veins of left lower extremity with inflammation (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: (13) Wound of left leg: CODE(S): S81.802A - Unspecified open wound, left lower leg, initial encounter QUALIFIERS: Encounter type: subsequent encounter Qualified Code(s): S81.802D - Unspecified open wound, left lower leg, subsequent encounter (14) Obesity (BMI 35.0-39.9 without comorbidity): CODE(S): E66.9 - Obesity, unspecified (15) Personal history of thrombophlebitis: CODE(S): Z86.72 - Personal history of thrombophlebitis (16) Tobacco abuse: CODE(S): Z72.0 - Tobacco use (17) Tobacco abuse counseling: CODE(S): Z71.6 - Tobacco abuse counseling (18) Lymphedema of left leg: CODE(S): I89.0 - Lymphedema, not elsewhere classified PLAN: The patient has been advised to continue conservative treatment measures. These are to include leg elevation. He is to continue sleeping on a flat mattress at night. His legs are to be elevated to heart level, or higher, even during daytime hours. This is to be implemented as much as possible. The patient has been advised to refrain from prolonged, idle standing and sitting. Activity has been encouraged. Implementation of the calf and foot muscle pumps has been explained. Weight loss is also been recommended. The patient has obtained graduated compression stockings of 20 to 30 mmHg compression. While the patient's willing compliance may be adequate, he does work long hours each day at the local [employer], which results in long hours of lower extremity dependency, thus enhancing venous hypertension. There is continued concern as to the patient's occupation and the demands for prolonged idle sitting, which is thought to be a contributing factor to the patient's lack of progress. He is currently working more than 50 hours/week, 10 hours/day. This has been discussed with the patient repeatedly. He admits to often working up to 82 hours/week. In his own words, the patient admits that his work schedule is excessive. We have obtained approval for the use of the Snap VAC for implementation of negative pressure wound therapy. This was implemented recently. However, we are to continue the use of quarter-strength Dakin's solution, which will be used to moisten gauze, and applied topically on a daily basis. Thus far, it is proved to be of benefit. The patient is to use a SurePress compression wrap, which he will apply on a daily basis. Approval for the use of EpiFix and PuraPly were sought, but denied by the patient's insurance company several times. The patient is not eligible for any skin graft substitutes, based upon his insurance plan. The patient is to return in 1 week for reassessment. Once again, we have reinforced the need for compression, elevation, avoidance of prolonged idle sitting, etc. We will continue to monitor the patient's wound serially, and to assess the patient's progress. The patient's wound cultures were positive for Staph aureus and strep species, and the patient has completed a course of Augmentin 875 mg p.o. twice daily for a total of 10 days. Additionally, due to the persisting swelling, edema, and lymphedema in the patient's left lower extremity, as well as venous hypertension, we requested preauthorization for the use of pneumatic mechanical compression pumps to the lower extremities. Prior conservative treatments that have been tried include elevation, exercise, compression wraps, and patient education in lymphedema management. Despite these conservative treatments, the patient continues to present with lymphedema. I feel as though additional care in the form of long-term daily home compression pump therapy is warranted at this time in order to maintain proper management of this chronic condition. I am prescribing Lymphapress pneumatic compression pumps, with bilateral leg sleeves and appropriate number of expanders. This is a chronic condition and the device will be needed indefinitely. The prognosis is good with the use of this compression pump. Other modalities have failed. Therefore the patient appears to meet the medical criteria for the home medical equipment. We continue to await receipt of these pumps. Patient smokes approximately 1/2 pack of cigarettes per day, and has been advised to refrain from his smoking habit. Influenza vaccine was not administered today. Patient stands 5 feet 10 inches tall. He weighs 246 pounds. His BMI is 35.3, which places him in a class II obesity category. Weight loss has been recommended, and collaboration with the patient's primary care physician has been advised. The recent implementation of a new electronic medical record system may result in errors, omissions, or inaccuracies in this document. Total time: 29 minutes.
== END 2021-04-01 23:59 ==
LOC: WC 07:45
PROVIDERS: PCP Family Medicine; Referring Provider Surgery; Visit Provider Surgery
DX: I83.222 Varicose veins of left lower extremity with both ulcer of calf and inflammation (principal); L97.222 Non-pressure chronic ulcer of left calf with fat layer exposed; R60.0 Localized edema; M79.89 Other specified soft tissue disorders; L02.416 Cutaneous abscess of left lower limb; E66.9 Obesity, unspecified; I89.0 Lymphedema, not elsewhere classified; Z68.35 Body mass index [BMI] 35.0-35.9, adult; F17.210 Nicotine dependence, cigarettes, uncomplicated; I83.11 Varicose veins of right lower extremity with inflammation
CPT/HCPCS: 11042; 97607

== ENCOUNTER 2021-04-21 08:00 | Outpatient (RCR) | payer OTHER, SELFPAY ==
[2021-04-02 00:17] VITALS: BP 139/76; PULSE 78; RESP 18; TEMP 36.6
[2021-04-07 07:54] VITALS: BP 143/73; PULSE 90; RESP 16; TEMP 36.6; BMI 35.3
--- NOTE | 2021-04-07 08:02 | HP.PCM_ITS ---
History of Present Illness Date of Service: 04/07/21 Chief Complaint: Open wound of the left lateral calf, status-post incision and drainage of abscess History of Wound: This is a 60-year-old male who was admitted to [facility] approximately 1 month prior to presentation with a large a bscess on the left lateral calf. On February 11, 2020, he underwent incision and drainage of the abscess. He spent approximately 5 days in the hospital, and was subsequently discharged on Augmentin. The patient claims to sleep on a flat mattress at night. However, he suffers from chronic swelling and edema in both lower extremities. Additionally, he has a history of superficial thrombophlebitis in the left lower extremity, and has undergone a prior left lower extremity vein stripping procedure in the remote past. Patient has developed chronic skin changes in his lower extremities, which include hyperpigmentation and lipodermatosclerosis in the gaiter areas bilaterally. 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 The patient claims to be relatively active. Management the time of presentation included the use of a wet-to-dry gauze packing daily. It is noted that patient underwent a venous duplex examination during his hospitalization recently, that was negative for any evidence of thrombosis, but indicated valvular incompetence of the deep and superficial venous systems bilaterally. [facility] Medical History (Updated 03/31/21 @ 08:[address] Juan Alberto Muñoz MD) Chronic venous insufficiency Postphlebitic syndrome with inflammation Home Medications Augmentin 875-125 Tablet 875 mg PO BID 03/18/20 [History Last Taken Unknown] rosuvastatin 20 mg PO DAILY 03/18/20 [History Last Taken Unknown] Social History Smoking Status: Light Smoker (<10/day) Vital Signs Vital Signs Vital Signs: 04/07/21 07:54 Temperature 97.8 F Temperature Source Temporal Pulse Rate 90 Respiratory Rate 16 Blood Pressure 143/73 H Blood Pressure Mean 96 Blood Pressure Source Monitor Blood Pressure Position Sitting Blood Pressure Location Left Arm Oxygen Delivery Method Room Air Weight Weight: 246 lb Body Mass Index (BMI) 35.3 Physical Exam Const alert, oriented x3, no apparent distress and well nourished General Appearance: cooperative, comfortable and well developed Orientation / Consciousness: awake, oriented to person, oriented to place and oriented to time HEENT normocephalic Head and Scalp: normal to inspection, normocephalic and atraumatic External Ear: external ears normal Eyes PERRL and EOMs intact bilaterally Resp normal respiratory effort, normal air movement, no retractions and no use of accessory muscles Effort and Inspection: able to speak in complete sentences Extremity no calf tenderness Extremity Narrative: Only very slight swelling is noted in the patient's left lower extremity. Chronic hyperpigmentation is noted in the gaiter area. Multiple large, bulging varicose veins are also noted. General Extremity: Negative for clubbing or cyanosis Skin Wound Narrative: The wound on the patient's left lateral calf persists. It is much smaller in size. Dimensions are documented elsewhere. There is no sign of infection or cellulitis. The base of the wound is pink and healthy. There is a small amount of bioburden. Neuro oriented x3, CN's II-XII intact bilaterally, moves all extremities and no focal motor deficits Sensorium / Orientation: awake, alert, oriented to person, oriented to place and oriented to time Psych Appearance: grossly normal and appropriate Activity / Motor Behavior: appropriate eye contact Speech: normal speech Mood & Affect: euthymic mood Thought Process: normal thought process Debridement Note Debridement Note Post-Debridement Measurements and Additional Note: Post-Debridement Measurements/Treatment - Nurse 1 - General Ulcer Assessment Start: 04/07/21 07:54 Freq: Status: Active Protocol: WC.LOWISIAHT Activity Type Activity Date Activity User E-Sign Co-Sign Detail Recorded Client Recorded Date Recorded By Document 04/07/21 07:54 MW [id number] 04/07/21 07:55 MW 04/07/21 07:54 - Today's Visit Information Type of service Follow-up Visit (Physician/GROUP SALES COORDINATOR ) Arrival Mode Ambulatory Transfer Assistance None Accompanied by self Patient Identification Verified (Name & Yes ) Patient Requires Transmission-Based No Precautions Safety Precautions NA Height and Weight Body Mass Index (BMI) 35.3 BMI Classification Obese Vital Signs Temperature (97.8 F-99.1 F) 97.8 F Temperature Source Temporal Pulse Rate (60-100) 90 Pulse Location Monitor Respiratory Rate (12-18) 16 Respiratory rate source Observation Oxygen Delivery Method Room Air Blood Pressure (90/60-120/80) 143/73 H Blood Pressure Mean 96 Source Monitor Position Sitting Blood Pressure Location Left Arm History Since Last Visit- (Skip if this is Patient's initial visit) Have you changed medications since your No last visit? Any new allergies or adverse reactions No Had a fall/change in ADL's that may No increase risk of falls Signs or symptoms of abuse and/or No neglect since last visit Have you been in the hospital since your No last visit? Has dressing in place as prescribed Yes Has compression in place as prescribed N/A Has offloadiing in place as prescribed N/A Experienced any changes in pain level or No management Left Footwear Regular Shoe Right Footwear Regular Shoe Pain Scale: 0-10 Numeric Is Patient Pain Free? Yes WC - Nurse 1 - General Ulcer Measurement Start: 04/07/21 07:54 Freq: Status: Active Protocol: Activity Type Activity Date Activity User E-Sign Co-Sign Detail Recorded Client Recorded Date Recorded By Document 04/07/21 07:54 MW [id number] 04/07/21 07:55 MW 04/07/21 07:54 Wound Center Nurse 1 #1 Lateral LLE -Combined with other wound No -Current Size (cm) - Length 1.1 -Current Size (cm) - Width 1.2 -Current Size (cm) - Depth 0.2 -Total Square Cm 1.32 -Photo Taken No -Epithelialization None Present -Tunneling No -Undermining/Tunneling No -Circular Undermining No -Exudate Amt Small -Exudate Type Serosanguineous -Wound Margin Distinct, Outline Attached -Granulation Amt Medium (34-66%) -Granulation Quality [place] -Slough/Fibrin Yes -Necrosis Amt Small (1-33%) -Necrotic Tissue Type Adherent Slough -Structure Exposed N/A -Texture (Lois-wound Skin Appearance) Assessed, Localized Edema ,Scarring -Moisture (Lois-wound Skin Appearance) No Abnormality, Assessed -Color (Lois-wound Skin Appearance) No Abnormality, Hemosiderin Staining -Temperature (Lois-wound Skin No Abnormality Appearance) (Pt Warm) -Tenderness on Palpation (Lois-wound Yes Skin Appearance) -Ulcer Cleansing Rinsed/ Irrigated with Saline -Foul Odor after Cleansing No -Anesthetic Used 5% Lidocaine Gel Lower Limb Edema Present No Wound debrided: Left lateral calf Laterality: Left Type of Debridement: Excisional debridement Anesthesia Used: 5% Lidocaine Gel Depth: Down to and including healthy tissue and in the subcutaneous layer Percentage of wound debrided: 100 Instrument Used: 5mm curette Tissue Removed: Bioburden Severity: Fat Layer Exposed Amount of bleeding with debridement: Mild Bleeding Controlled with: Compression and gauze Patient tolerated procedure: Patient tolerated procedure well Assessment/Plan Assessment/Plan (1) 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: CODE(S): I83.229 - Varicose veins of left lower extremity with both ulcer of unspecified site and inflammation; L97.929 - Non-pressure chronic ulcer of unspecified part of left lower leg with unspecified severity (2) Chronic venous insufficiency: CODE(S): I87.2 - Venous insufficiency (chronic) (peripheral) (3) Postphlebitic syndrome with inflammation: CODE(S): I87.029 - Postthrombotic syndrome with inflammation of unspecified lower extremity (4) Leg swelling: CODE(S): M79.89 - Other specified soft tissue disorders (5) Leg edema: CODE(S): R60.0 - Localized edema (6) Abscess of left leg: CODE(S): L02.416 - Cutaneous abscess of left lower limb (7) Surgical wound present: CODE(S): T14.8XXA - Other injury of unspecified body region, initial encounter (8) Chronic venous insufficiency: CODE(S): I87.2 - Venous insufficiency (chronic) (peripheral) (9) Post-phlebitic dermatosis of both lower extremities: CODE(S): I87.093 - Postthrombotic syndrome with other complications of bilateral lower extremity (10) Hyperpigmentation of skin: CODE(S): L81.9 - Disorder of pigmentation, unspecified (11) Lipodermatosclerosis of both lower extremities: CODE(S): I83.11 - Varicose veins of right lower extremity with inflammation; I83.12 - Varicose veins of left lower extremity with inflammation (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: (13) Wound of left leg: CODE(S): S81.802A - Unspecified open wound, left lower leg, initial enc ounter QUALIFIERS: Encounter type: subsequent encounter Qualified Code(s): S81.802D - Unspecified open wound, left lower leg, subsequent encounter (14) Obesity (BMI 35.0-39.9 without comorbidity): CODE(S): E66.9 - Obesity, unspecified (15) Personal history of thrombophlebitis: CODE(S): Z86.72 - Personal history of thrombophlebitis (16) Tobacco abuse: CODE(S): Z72.0 - Tobacco use (17) Tobacco abuse counseling: CODE(S): Z71.6 - Tobacco abuse counseling (18) Lymphedema of left leg: CODE(S): I89.0 - Lymphedema, not elsewhere classified PLAN: The patient has been advised to continue conservative treatment measures. These are to include leg elevation. He is to continue sleeping on a flat mattress at night. His legs are to be elevated to heart level, or higher, even during daytime hours. This is to be implemented as much as possible. The patient has been advised to refrain from prolonged, idle standing and sitting. Activity has been encouraged. Implementation of the calf and foot muscle pumps has been explained. Weight loss is also been recommended. The patient has obtained graduated compression stockings of 20 to 30 mmHg compression. While the patient's willing compliance may be adequate, he does work long hours each day at the local [employer], which results in long hours of lower extremity dependency, thus enhancing venous hypertension. There is continued concern as to the patient's occupation and the demands for prolonged idle sitting, which is thought to be a contributing factor to the patient's lack of progress. He is currently working more than 50 hours/week, 10 hours/day. This has been discussed with the patient repeatedly. He admits to often working up to 82 hours/week. In his own words, the patient admits that his work schedule is excessive. We have obtained approval for the use of the Snap VAC for implementation of negative pressure wound therapy. This was implemented recently. However, we are to continue the use of 0.25% Dakin's solution, which will be used to moisten gauze, and applied topically on a daily basis. Thus far, it is proved to be of benefit. The patient is to use a SurePress compression wrap, which he will apply on a daily basis. Approval for the use of EpiFix and PuraPly were sought, but denied by the patient's insurance company several times. The patient is not eligible for any skin graft substitutes, based upon his insurance plan. The patient is to return in 1 week for reassessment. Once again, we have reinforced the need for compression, elevation, avoidance of prolonged idle sitting, etc. We will continue to monitor the patient's wound serially, and to assess the patient's progress. The patient's wound cultures were positive for Staph aureus and strep species, and the patient has completed a course of Augmentin 875 mg p.o. twice daily for a total of 10 days. Additionally, due to the persisting swelling, edema, and lymphedema in the patient's left lower extremity, as well as venous hyper tension, we requested preauthorization for the use of pneumatic mechanical compression pumps to the lower extremities. Prior conservative treatments that have been tried include elevation, exercise, compression wraps, and patient education in lymphedema management. Despite these conservative treatments, the patient continues to present with lymphedema. I feel as though additional care in the form of long-term daily home compression pump therapy is warranted at this time in order to maintain proper management of this chronic condition. I am prescribing Lymphapress pneumatic compression pumps, with bilateral leg sleeves and appropriate number of expanders. This is a chronic condition and the device will be needed indefinitely. The prognosis is good with the use of this compression pump. Other modalities have failed. Therefore the patient appears to meet the medical criteria for the home medical equipment. We continue to await receipt of these pumps. Patient smokes approximately 1/2 pack of cigarettes per day, and has been advised to refrain from his smoking habit. Influenza vaccine was not administered today. Patient stands 5 feet 10 inches tall. He weighs 246 pounds. His BMI is 35.3, which places him in a class II obesity category. Weight loss has been recommended, and collaboration with the patient's primary care physician has been advised. The recent implementation of a new electronic medical record system may result in errors, omissions, or inaccuracies in this document. Total time: 28 minutes.
[2021-04-14 07:53] VITALS: BP 157/70; PULSE 73; RESP 18; TEMP 36.4; BMI 35.3
--- NOTE | 2021-04-14 08:31 | PCM.WC.HP ---
History of Present Illness Date of Service: 04/14/21 Chief Complaint: Open wound of the left lateral calf, status-post incision and drainage of abscess History of Wound: This is a 60-year-old male who was admitted to [facility] approximately 1 month prior to presentation with a large abscess on the left lateral calf. On February 11, 2020, he underwent incision and drainage of the abscess. He spent approximately 5 days in the hospital, and was subsequently discharged on Augmentin. The patient claims to sleep on a flat mattress at night. However, he suffers from chronic swelling and edema in both lower extremities. Additionally, he has a history of superficial thrombophlebitis in the left lower extremity, and has undergone a prior left lower extremity vein stripping procedure in the remote past. Patient has developed chronic skin changes in his lower extremities, which include hyperpigmentation and lipodermatosclerosis in the gaiter areas bilaterally. 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 The patient claims to be relatively active. Management the time of presentation included the use of a wet-to-dry gauze packing daily. It is noted that patient underwent a venous duplex examination during his hospitalization recently, that was negative for any evidence of thrombosis, but indicated valvular incompetence of the deep and superficial venous systems bilaterally. [facility] Medical History (Updated 03/31/21 @ 08:[address] Juan Alberto Muñoz MD) Chronic venous insufficiency Postphlebitic syndrome with inflammation Home Medications Augmentin 875-125 Tablet 875 mg PO BID 03/18/20 [History Last Taken Unknown] rosuvastatin 20 mg PO DAILY 03/18/20 [History Last Taken Unknown] Social History Smoking Status: Light Smoker (<10/day) Vital Signs Vital Signs Vital Signs: 04/14/21 07:53 Temperature 97.6 F L Temperature Source Temporal Pulse Rate 73 Respiratory Rate 18 Blood Pressure 157/70 H Blood Pressure Mean 99 Weight Weight: 246 lb Body Mass Index (BMI) 35.3 Physical Exam Const alert, oriented x3, no apparent distress and well nourished General Appearance: cooperative, comfortable and well developed Orientation / Consciousness: awake, oriented to person, oriented to place and oriented to time HEENT normocephalic and head/scalp atraumatic Head and Scalp: normal to inspection, normocephalic and atraumatic External Ear: external ears normal Eyes PERRL and EOMs intact bilaterally General Eye: normal appearance of both eyes Resp normal respiratory effort, normal air movement, no retractions and no use of accessory muscles Effort and Inspection: able to speak in complete sentences Extremity no calf tenderness Extremity Narrative: Slight edema is noted in the patient's left lower extremity. Chronic hyperpigmentation is also noted. Numerous large, bulging varicose veins are also noted. General Extremity: Negative for clubbing or cyanosis Skin Wound Narrative: The ulceration on the left lateral calf persists. It is slightly smaller in size. Dimensions are documented elsewhere. The base of the wound is generally pink and healthy in appearance. There is no sign of infection or cellulitis. There is a small amount of bioburden. Neuro oriented x3, CN's II-XII intact bilaterally, moves all extremities and no focal motor deficits Speech: speech normal Psych Appearance: grossly normal and appropriate Attitude: calm Activity / Motor Behavior: appropriate eye contact Speech: normal speech Mood & Affect: euthymic mood Thought Process: normal thought process Thought Content: normal thought content Attention / Concentration: attention grossly intact Debridement Note Debridement Note Post-Debridement Measurements and Additional Note: Post-Debridement Measurements/Treatment - Nurse 1 - General Ulcer Assessment Start: 04/07/21 07:54 Freq: Status: Active Protocol: DIGNA Activity Type Activity Date Activity User E-Sign Co-Sign Detail Recorded Client Recorded Date Recorded By Document 04/07/21 07:54 MW [id number] 04/07/21 07:55 MW Document 04/14/21 07:53 PL [id number] 04/14/21 07:57 PL 04/07/21 04/14/21 07:54 07:53 - Today's Visit Information Type of service Follow-up Visit Follow-up Visit (Physician/QUALITY LAB TECHNICIAN (Physician/QUALITY LAB TECHNICIAN ) ) Arrival Mode Ambulatory Ambulatory Transfer Assistance None None Accompanied by self Patient Identification Verified (Name & Yes Yes ) Patient Requires Transmission-Based No No Precautions Safety Precautions NA NA Height and Weight Body Mass Index (BMI) 35.3 35.3 BMI Classification Obese Obese Vital Signs Temperature (97.8 F-99.1 F) 97.8 F 97.6 F L Temperature Source Temporal Temporal Pulse Rate (60-100) 90 73 Pulse Location Monitor Respiratory Rate (12-18) 16 18 Respiratory rate source Observation Oxygen Delivery Method Room Air Blood Pressure (90/60-120/80) 143/73 H 157/70 H Blood Pressure Mean 96 99 Source Monitor Position Sitting Blood Pressure Location Left Arm History Since Last Visit- (Skip if this is Patient's initial visit) Have you changed medications since your No No last visit? Any new allergies or adverse reactions No No Had a fall/change in ADL's that may No No increase risk of falls Signs or symptoms of abuse and/or No No neglect since last visit Have you been in the hospital since your No No last visit? Has dressing in place as prescribed Yes Yes Has compression in place as prescribed N/A Yes Has offloadiing in place as prescribed N/A N/A Experienced any changes in pain level or No No management Left Footwear Regular Shoe Right Footwear Regular Shoe Pain Scale: 0-10 Numeric Is Patient Pain Free? Yes Yes WC - Nurse 1 - General Ulcer Measurement Start: 04/07/21 07:54 Freq: Status: Active Protocol: Activity Type Activity Date Activity User E-Sign Co-Sign Detail Recorded Client Recorded Date Recorded By Document 04/07/21 07:54 MW [id number] 04/07/21 07:55 MW Document 04/14/21 07:53 PL [id number] 04/14/21 07:57 PL 04/07/21 04/14/21 07:54 07:53 Wound Center Nurse 1 #1 Lateral LLE -Combined with other wound No No -Current Size (cm) - Length 1.1 1.0 -Current Size (cm) - Width 1.2 1.0 -Current Size (cm) - Depth 0.2 0.2 -Total Square Cm 1.32 1.00 -Photo Taken No No -Epithelialization None Present None Present -Tunneling No No -Undermining/Tunneling No No -Circular Undermining No No -Exudate Amt Small Medium -Exudate Type Serosanguineous Serosanguineous -Wound Margin Distinct, Outline Attached -Granulation Amt Medium (34-66%) Large (67-100%) -Granulation Quality [place] -Slough/Fibrin Yes Yes -Necrosis Amt Small (1-33%) Small (1-33%) -Necrotic Tissue Type Adherent Slough Adherent Slough -Structure Exposed N/A -Texture (Lois-wound Skin Appearance) Assessed, No Abnormality Localized Edema ,Scarring -Moisture (Lois-wound Skin Appearance) No Abnormality, No Abnormality Assessed -Color (Lois-wound Skin Appearance) No Abnormality, No Abnormality Hemosiderin Staining -Temperature (Lois-wound Skin No Abnormality No Abnormality Appearance) (Pt Warm) (Pt Warm) -Tenderness on Palpation (Lois-wound Yes Skin Appearance) -Ulcer Cleansing Rinsed/ Rinsed/ Irrigated with Irrigated with Saline Saline -Foul Odor after Cleansing No No -Anesthetic Used 5% Lidocaine 5% Lidocaine Gel Gel Lower Limb Edema Present No WC - Nurse 2 - General Ulcer CM Notes Start: 04/07/21 07:54 Freq: Status: Active Protocol: Activity Type Activity Date Activity User E-Sign Co-Sign Detail Recorded Client Recorded Date Recorded By Document 04/07/21 12:44 PL [id number] 04/07/21 12:46 PL 04/07/21 12:44 Wound Center Nurse 2 -Time 07:57 -Correct Patient Yes -Correct Side, Site, Position Yes -Correct Procedure Yes -Procedure Performed Yes -Type of Procedure Debridement -Clinical Debridement Subcutaneous -Tissue Removed Subcutaneous -Post Debridement (cm) - Length 1.1 -Post Debridement (cm) - Width 1.2 -Post Debridement (cm) - Depth 0.2 -Total Square (Post) (cm) 1.32 -Area of Debridement (cm) - Length 1.1 -Area of Debridement (cm) - Width 1.2 -Total Square (Area) (cm) 1.32 -Tunneling No -Undermining/Tunneling No -Circular Undermining No -Wound/Ulcer Outcome Not Healed -Ulcer Cleansing Rinsed/ Irrigated with Saline -Foul Odor after Cleansing No -Bioengineered Tissue No -Debridement - Subq, 1st 20sq cm Yes Pain Scale: 0-10 Numeric Is Patient Pain Free? Yes WC - Nurse 3 - General Ulcer D/C NN Start: 04/07/21 07:54 Freq: Status: Active Protocol: Activity Type Activity Date Activity User E-Sign Co-Sign Detail Recorded Client Recorded Date Recorded By Document 04/07/21 12:44 PL [id number] 04/07/21 12:46 PL 04/07/21 12:44 Is Patient Pain Free? Yes Wound Care Nurse 3 #1 Lateral LLE -Ulcer Cleansing Rinsed/ Irrigated with Saline -Foul Odor after Cleansing No -Other Dressing Dakins -Primary Dressing Covered/Secured with Dry Gauze & Roll Gauze, Secured with Tape Left -Compression Wrap Surepress ($) WC - Visit Discharge Discharge Condition Stable Ambulatory Status Ambulatory Transportation Private Auto Clinical Summary of Care Provided Yes Wound debrided: Left lateral calf Laterality: Left Type of Debridement: Excisional debridement Anesthesia Used: 5% Lidocaine Gel Depth: Down to and including healthy tissue and in the subcutaneous layer Percentage of wound debrided: 100 Instrument Used: 5mm curette Tissue Removed: Bioburden Severity: Fat Layer Exposed Amount of bleeding with debridement: Mild Bleeding Controlled with: Compression and gauze Patient tolerated procedure: Patient tolerated procedure well Assessment/Plan Assessment/Plan (1) Wound of left leg: CODE(S): S81.802A - Unspecified open wound, left lower leg, initial encounter QUALIFIERS: Encounter type: subsequent encounter Qualified Code(s): S81.802D - Unspecified open wound, left lower leg, subsequent encounter (2) Surgical wound present: CODE(S): T14.8XXA - Other injury of unspecified body region, initial encounter (3) 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: CODE(S): I83.229 - Varicose veins of left lower extremity with both ulcer of unspecified site and inflammation; L97.929 - Non-pressure chronic ulcer of unspecified part of left lower leg with unspecified severity (4) Chronic venous insufficiency: CODE(S): I87.2 - Venous insufficiency (chronic) (peripheral) (5) Postphlebitic syndrome with inflammation: CODE(S): I87.029 - Postthrombotic syndrome with inflammation of unspecified lower extremity (6) Leg swelling: CODE(S): M79.89 - Other specified soft tissue disorders (7) Leg edema: CODE(S): R60.0 - Localized edema (8) Abscess of left leg: CODE(S): L02.416 - Cutaneous abscess of left lower limb (9) Chronic venous insufficiency: CODE(S): I87.2 - Venous insufficiency (chronic) (peripheral) (10) Post-phlebitic dermatosis of both lower extremities: CODE(S): I87.093 - Postthrombotic syndrome with other complications of bilateral lower extremity (11) Hyperpigmentation of skin: CODE(S): L81.9 - Disorder of pigmentation, unspecified (12) Lipodermatosclerosis of both lower extremities: CODE(S): I83.11 - Varicose veins of right lower extremity with inflammation; I83.12 - Varicose veins of left lower extremity with inflammation (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 These are to include leg elevation. He is to continue sleeping on a flat mattress at night. His legs are to be elevated to heart level, or higher, even during daytime hours. This is to be implemented as much as possible. The patient has been advised to refrain from prolonged, idle standing and sitting. Activity has been encouraged. Implementation of the calf and foot muscle pumps has been explained. Weight loss is also been recommended. The patient has obtained graduated compression stockings of 20 to 30 mmHg compression. While the patient's willing compliance may be adequate, he does work long hours each day at the local [employer], which results in long hours of lower extremity dependency, thus enhancing venous hypertension. There is continued concern as to the patient's occupation and the demands for prolonged idle sitting, which is thought to be a contributing factor to the patient's lack of progress. He is currently working more than 50 hours/week, 10 hours/day. This has been discussed with the patient repeatedly. He admits to often working up to 82 hours/week. In his own words, the patient admits that his work schedule is excessive. We have obtained approval for the use of the Snap VAC for implementation of negative pressure wound therapy. This was implemented recently. However, we are to continue the use of 0.25% Dakin's solution, which will be used to moisten gauze, and applied topically on a daily basis. Thus far, it is proved to be of benefit. The patient is to use a SurePress compression wrap, which he will apply on a daily basis. Approval for the use of EpiFix and PuraPly were sought, but denied by the patient's insurance company several times. The patient is not eligible for any skin graft substitutes, based upon his insurance plan. The patient is to return in 1 week for reassessment. Once again, we have reinforced the need for compression, elevation, avoidance of prolonged idle sitting, etc. We will continue to monitor the patient's wound serially, and to assess the patient's progress. The patient's wound cultures were positive for Staph aureus and strep species, and the patient has completed a course of Augmentin 875 mg p.o. twice daily for a total of 10 days. Additionally, due to the persisting swelling, edema, and lymphedema in the patient's left lower extremity, as well as venous hypertension, we requested preauthorization for the use of pneumatic mechanical compression pumps to the lower extremities. Prior conservative treatments that have been tried include elevation, exercise, compression wraps, and patient education in lymphedema management. Despite these conservative treatments, the patient continues to present with lymphedema. I feel as though additional care in the form of long-term daily home compression pump therapy is warranted at this time in order to maintain proper management of this chronic condition. I am prescribing Lymphapress pneumatic compression pumps, with bilateral leg sleeves and appropriate number of expanders. This is a chronic condition and the device will be needed indefinitely. The prognosis is good with the use of this compression pump. Other modalities have failed. Therefore the patient appears to meet the medical criteria for the home medical equipment. We continue to await receipt of these pumps. Patient smokes approximately 1/2 pack of cigarettes per day, and has been advised to refrain from his smoking habit. Influenza vaccine was not administered today. Patient stands 5 feet 10 inches tall. He weighs 246 pounds. His BMI is 35.3, which places him in a class II obesity category. Weight loss has been recommended, and collaboration with the patient's primary care physician has been advised. Total time: 29 minutes.
[2021-04-21 08:03] VITALS: BP 135/68; PULSE 74; RESP 16; TEMP 36.5; BMI 35.3
--- NOTE | 2021-04-21 08:15 | HP.PCM_ITS ---
History of Present Illness Date of Service: 04/21/21 Chief Complaint: Open wound of the left lateral calf, status-post incision and drainage of abscess History of Wound: This is a 60-year-old male who was admitted to [facility] approximately 1 month prior to presentation with a large a bscess on the left lateral calf. On February 11, 2020, he underwent incision and drainage of the abscess. He spent approximately 5 days in the hospital, and was subsequently discharged on Augmentin. The patient claims to sleep on a flat mattress at night. However, he suffers from chronic swelling and edema in both lower extremities. Additionally, he has a history of superficial thrombophlebitis in the left lower extremity, and has undergone a prior left lower extremity vein stripping procedure in the remote past. Patient has developed chronic skin changes in his lower extremities, which include hyperpigmentation and lipodermatosclerosis in the gaiter areas bilaterally. 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 The patient claims to be relatively active. Management the time of presentation included the use of a wet-to-dry gauze packing daily. It is noted that patient underwent a venous duplex examination during his hospitalization recently, that was negative for any evidence of thrombosis, but indicated valvular incompetence of the deep and superficial venous systems bilaterally. [facility] Medical History (Updated 03/31/21 @ 08:[address] Juan Alberto Muñoz MD) Chronic venous insufficiency Postphlebitic syndrome with inflammation Home Medications Augmentin 875-125 Tablet 875 mg PO BID 03/18/20 [History Last Taken Unknown] rosuvastatin 20 mg PO DAILY 03/18/20 [History Last Taken Unknown] Social History Smoking Status: Light Smoker (<10/day) Vital Signs Vital Signs Vital Signs: 04/21/21 08:03 Temperature 97.7 F L Temperature Source Temporal Pulse Rate 74 Respiratory Rate 16 Blood Pressure 135/68 H Blood Pressure Mean 90 Blood Pressure Source Monitor Oxygen Delivery Method Room Air Weight Weight: 246 lb Body Mass Index (BMI) 35.3 Physical Exam Const alert, oriented x3, no apparent distress and well nourished General Appearance: cooperative, comfortable and well developed Orientation / Consciousness: awake, oriented to person, oriented to place and oriented to time HEENT normocephalic and head/scalp atraumatic Head and Scalp: normal to inspection, normocephalic and atraumatic External Ear: external ears normal Eyes PERRL and EOMs intact bilaterally General Eye: normal appearance of both eyes Resp normal respiratory effort, normal air movement, no retractions and no use of accessory muscles Effort and Inspection: able to speak in complete sentences Extremity no calf tenderness Extremity Narrative: Chronic venous changes persist in the patient's left lower extremity. Chronic hyperpigmentation and lipodermatosclerosis persist in the left gaiter area. There is slight edema. Numerous large, bulging varicosities are noted. General Extremity: Negative for clubbing or cyanosis Skin Wound Narrative: The wound on the left lateral calf persists. It is noticeably smaller in size. Dimensions are documented elsewhere. There is no sign of infection or cellulitis. There is a moderate amount of bioburden. The base of the wound is generally pink and healthy in appearance. Neuro oriented x3, CN's II-XII intact bilaterally, moves all extremities and no sensory deficits noted Speech: speech normal Psych Appearance: grossly normal and appropriate Attitude: calm Activity / Motor Behavior: appropriate eye contact Speech: normal speech Mood & Affect: euthymic mood Thought Process: normal thought process Thought Content: normal thought content Attention / Concentration: attention grossly intact Debridement Note Debridement Note Post-Debridement Measurements and Additional Note: Post-Debridement Measurements/Treatment - Nurse 1 - General Ulcer Assessment Start: 04/07/21 07:54 Freq: Status: Active Protocol: [email or web address].JAMEL Activity Type Activity Date Activity User E-Sign Co-Sign Detail Recorded Client Recorded Date Recorded By Document 04/07/21 07:54 MW [id number] 04/07/21 07:55 MW Document 04/14/21 07:53 PL [id number] 04/14/21 07:57 PL Document 04/21/21 08:03 [facility] [id number] 04/21/21 08:05 [facility] 04/07/21 04/14/21 04/21/21 07:54 07:53 08:03 - Today's Visit Information Type of service Follow-up Visit Follow-up Visit Follow-up Visit (Physician/SENSITIZER (Physician/SENSITIZER (Physician/SENSITIZER ) ) ) Arrival Mode Ambulatory Ambulatory Ambulatory Transfer Assistance None None None Accompanied by self Patient Identification Verified (Name & Yes Yes Yes ) Patient Requires Transmission-Based No No No Precautions Safety Precautions NA NA Height and Weight Body Mass Index (BMI) 35.3 35.3 35.3 BMI Classification Obese Obese Obese Vital Signs Temperature (97.8 F-99.1 F) 97.8 F 97.6 F L 97.7 F L Temperature Source Temporal Temporal Temporal Pulse Rate (60-100) 90 73 74 Pulse Location Monitor Monitor Respiratory Rate (12-18) 16 18 16 Respiratory rate source Observation Observation Oxygen Delivery Method Room Air Room Air Blood Pressure (90/60-120/80) 143/73 H 157/70 H 135/68 H Blood Pressure Mean 96 99 90 Source Monitor Monitor Position Sitting Blood Pressure Location Left Arm History Since Last Visit- (Skip if this is Patient's initial visit) Have you changed medications since your No No No last visit? Any new allergies or adverse reactions No No No Had a fall/change in ADL's that may No No No increase risk of falls Signs or symptoms of abuse and/or No No No neglect since last visit Have you been in the hospital since your No No No last visit? Has dressing in place as prescribed Yes Yes Yes Has compression in place as prescribed N/A Yes No Has offloadiing in place as prescribed N/A N/A N/A Experienced any changes in pain level or No No No management Left Footwear Regular Shoe Regular Shoe Right Footwear Regular Shoe Regular Shoe Pain Scale: 0-10 Numeric Is Patient Pain Free? Yes Yes Yes WC - Nurse 1 - General Ulcer Measurement Start: 04/07/21 07:54 Freq: Status: Active Protocol: Activity Type Activity Date Activity User E-Sign Co-Sign Detail Recorded Client Recorded Date Recorded By Document 04/07/21 07:54 MW [id number] 04/07/21 07:55 MW Document 04/14/21 07:53 PL [id number] 04/14/21 07:57 PL Document 04/21/21 08:03 [facility] [id number] 04/21/21 08:05 BM 04/07/21 04/14/21 04/21/21 07:54 07:53 08:03 Wound Center Nurse 1 #1 Lateral LLE -Combined with other wound No No No -Current Size (cm) - Length 1.1 1.0 1.2 -Current Size (cm) - Width 1.2 1.0 1 -Current Size (cm) - Depth 0.2 0.2 0.2 -Total Square Cm 1.32 1.00 1.2 -Photo Taken No No No -Epithelialization None Present None Present Small 1-33% -Tunneling No No No -Undermining/Tunneling No No No -Circular Undermining No No No -Exudate Amt Small Medium Small -Exudate Type Serosanguineous Serosanguineous Serosanguineous -Wound Margin Distinct, Distinct, Outline Outline Attached Attached -Granulation Amt Medium (34-66%) Large (67-100%) Large (67-100%) -Granulation Quality Sattley Sattley Pale,Red -Slough/Fibrin Yes Yes No -Necrosis Amt Small (1-33%) Small (1-33%) None Present (0 %) -Necrotic Tissue Type Adherent Slough Adherent Slough -Structure Exposed N/A -Texture (Lois-wound Skin Appearance) Assessed, No Abnormality Assessed, Localized Edema Scarring ,Scarring -Moisture (Lois-wound Skin Appearance) No Abnormality, No Abnormality Assessed,Dry/ Assessed Scaly -Color (Lois-wound Skin Appearance) No Abnormality, No Abnormality Assessed, Hemosiderin Hemosiderin Staining Staining -Temperature (Lois-wound Skin No Abnormality No Abnormality No Abnormality Appearance) (Pt Warm) (Pt Warm) (Pt Warm) -Tenderness on Palpation (Lois-wound Yes No Skin Appearance) -Ulcer Cleansing Rinsed/ Rinsed/ Rinsed/ Irrigated with Irrigated with Irrigated with Saline Saline Saline -Foul Odor after Cleansing No No No -Anesthetic Used 5% Lidocaine 5% Lidocaine 5% Lidocaine Gel Gel Gel Lower Limb Edema Present No WC - Nurse 2 - General Ulcer CM Notes Start: 04/07/21 07:54 Freq: Status: Active Protocol: Activity Type Activity Date Activity User E-Sign Co-Sign Detail Recorded Client Recorded Date Recorded By Document 04/07/21 12:44 PL [id number] 04/07/21 12:46 PL Document 04/14/21 08:32 PL [id number] 04/14/21 08:33 PL 04/07/21 04/14/21 12:44 08:32 Wound Center Nurse 2 #1 Lateral LLE -Time 07:57 08:12 -Correct Patient Yes Yes -Correct Side, Site, Position Yes Yes -Correct Procedure Yes Yes -Procedure Performed Yes Yes -Type of Procedure Debridement Debridement -Clinical Debridement Subcutaneous Subcutaneous -Tissue Removed Subcutaneous Subcutaneous -Post Debridement (cm) - Length 1.1 1.0 -Post Debridement (cm) - Width 1.2 1.0 -Post Debridement (cm) - Depth 0.2 0.2 -Total Square (Post) (cm) 1.32 1.00 -Area of Debridement (cm) - Length 1.1 1.0 -Area of Debridement (cm) - Width 1.2 1.0 -Total Square (Area) (cm) 1.32 1.00 -Tunneling No No -Undermining/Tunneling No No -Circular Undermining No No -Wound/Ulcer Outcome Not Healed Not Healed -Ulcer Cleansing Rinsed/ Rinsed/ Irrigated with Irrigated with Saline Saline -Foul Odor after Cleansing No No -Bioengineered Tissue No No -Debridement - Subq, 1st 20sq cm Yes Yes Pain Scale: 0-10 Numeric Is Patient Pain Free? Yes Yes - Nurse 3 - General Ulcer D/C NN Start: 04/07/21 07:54 Freq: Status: Active Protocol: Activity Type Activity Date Activity User E-Sign Co-Sign Detail Recorded Client Recorded Date Recorded By Document 04/07/21 12:44 PL [id number] 04/07/21 12:46 PL 04/07/21 12:44 Is Patient Pain Free? Yes Wound Care Nurse 3 #1 Lateral LLE -Ulcer Cleansing Rinsed/ Irrigated with Saline -Foul Odor after Cleansing No -Other Dressing Dakins -Primary Dressing Covered/Secured with Dry Gauze & Roll Gauze, Secured with Tape Left -Compression Wrap Surepress ($) WC - Visit Discharge Discharge Condition Stable Ambulatory Status Ambulatory Transportation Private Auto Clinical Summary of Care Provided Yes Wound debrided: Left lateral calf Laterality: Left Type of Debridement: Excisional debridement Anesthesia Used: 5% Lidocaine Gel Depth: Down to and including healthy tissue and in the subcutaneous layer Percentage of wound debrided: 100 Instrument Used: 5mm curette Severity: Fat Layer Exposed Amount of bleeding with debridement: Mild Bleeding Controlled with: Compression and gauze Patient tolerated procedure: Patient tolerated procedure well Assessment/Plan Assessment/Plan (1) 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: CODE(S): I83.229 - Varicose veins of left lower extremity with both ulcer of unspecified site and inflammation; L97.929 - Non-pressure chronic ulcer of unspecified part of left lower leg with unspecified severity (2) Chronic venous insufficiency: CODE(S): I87.2 - Venous insufficiency (chronic) (peripheral) (3) Postphlebitic syndrome with inflammation: CODE(S): I87.029 - Postthrombotic syndrome with inflammation of unspeci fied lower extremity (4) Leg swelling: CODE(S): M79.89 - Other specified soft tissue disorders (5) Leg edema: CODE(S): R60.0 - Localized edema (6) Abscess of left leg: CODE(S): L02.416 - Cutaneous abscess of left lower limb (7) Surgical wound present: CODE(S): T14.8XXA - Other injury of unspecified body region, initial enc ounter (8) Chronic venous insufficiency: CODE(S): I87.2 - Venous insufficiency (chronic) (peripheral) (9) Post-phlebitic dermatosis of both lower extremities: CODE(S): I87.093 - Postthrombotic syndrome with other complications of bilateral lower extremity (10) Lipodermatosclerosis of both lower extremities: CODE(S): I83.11 - Varicose veins of right lower extremity with inflammation; I83.12 - Varicose veins of left lower extremity with inflammation (11) Hyperpigmentation of skin: CODE(S): L81.9 - Disorder of pigmentation, unspecified (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: (13) Wound of left leg: CODE(S): S81.802A - Unspecified open wound, left lower leg, initial encounter QUALIFIERS: Encounter type: subsequent encounter Qualified Code(s): S81.802D - Unspecified open wound, left lower leg, subsequent encounter (14) Obesity (BMI 35.0-39.9 without comorbidity): CODE(S): E66.9 - Obesity, unspecified (15) Personal history of thrombophlebitis: CODE(S): Z86.72 - Personal history of thrombophlebitis (16) Tobacco abuse: CODE(S): Z72.0 - Tobacco use (17) Tobacco abuse counseling: CODE(S): Z71.6 - Tobacco abuse counseling (18) Lymphedema of left leg: CODE(S): I89.0 - Lymphedema, not elsewhere classified PLAN: The patient has been advised to continue conservative treatment measures. These are to include leg elevation. He is to continue sleeping on a flat mattress at night. His legs are to be elevated to heart level, or higher, even during daytime hours. This is to be implemented as much as possible. The patient has been advised to refrain from prolonged, idle standing and sitting. Activity has been encouraged. Implementation of the calf and foot muscle pumps has been explained. Weight loss is also been recommended. The patient has obtained graduated compression stockings of 20 to 30 mmHg compression. While the patient's willing compliance may be adequate, he does work long hours each day at the local [employer], which results in long hours of lower extremity dependency, thus enhancing venous hypertension. There is continued concern as to the patient's occupation and the demands for prolonged idle sitting, which is thought to be a contributing factor to the patient's lack of progress. He is currently working more than 50 hours/week, 10 hours/day. This has been discusse d with the patient repeatedly. He admits to often working up to 82 hours/week. In his own words, the patient admits that his work schedule is excessive. We have obtained approval for the use of the Snap VAC for implementation of negative pressure wound therapy. This was implemented recently. However, we are to continue the use of 0.25% Dakin's solution, which will be used to moisten gauze, and applied topically on a daily basis. Thus far, it is proved to be of benefit. The patient is to use a SurePress compression wrap, which he will apply on a daily basis. Approval for the use of EpiFix and PuraPly were sought, but denied by the patient's insurance company several times. The patient is not eligible for any skin graft substitutes, based upon his insurance plan. Once again, we have reinforced the need for compression, elevation, avoidance of prolonged idle sitting, etc. We will continue to monitor the patient's wound serially, and to assess the patient's progress. The patient's wound cultures were positive for Staph aureus and strep species, and the patient has completed a course of Augmentin 875 mg p.o. twice daily for a total of 10 days. Additionally, due to the persisting swelling, edema, and lymphedema in the patient's left lower extremity, as well as venous hypertension, we requested preauthorization for the use of pneumatic mechanical compression pumps to the lower extremities. Prior conservative treatments that have been tried include elevation, exercise, compression wraps, and patient education in lymphedema management. Despite these conservative treatments, the patient continues to present with lymphedema. I feel as though additional care in the form of long- term daily home compression pump therapy is warranted at this time in order to maintain proper management of this chronic condition. I am prescribing Lymphapress pneumatic compression pumps, with bilateral leg sleeves and appropriate number of expanders. This is a chronic condition and the device will be needed indefinitely. The prognosis is good with the use of this compression pump. Other modalities have failed. Therefore the patient appears to meet the medical criteria for the home medical equipment. We continue to await receipt of these pumps. Patient smokes approximately 1/2 pack of cigarettes per day, and has been advised to refrain from his smoking habit. Influenza vaccine was not administered today. Patient stands 5 feet 10 inches tall. He weighs 246 pounds. His BMI is 35.3, which places him in a class II obesity category. Weight loss has been recommended, and collaboration with the patient's primary care physician has been advised. The patient will be on vacation next week, so his follow-up evaluation will be scheduled for 2 weeks. Total time: 29 minutes.
== END 2021-05-02 23:59 ==
LOC: WC 08:00
PROVIDERS: PCP Family Medicine; Referring Provider Surgery; Visit Provider Surgery
DX: T81.89XA Other complications of procedures, not elsewhere classified, initial encounter (principal); I87.2 Venous insufficiency (chronic) (peripheral); L81.9 Disorder of pigmentation, unspecified; I89.0 Lymphedema, not elsewhere classified; R60.0 Localized edema; F17.210 Nicotine dependence, cigarettes, uncomplicated; E66.9 Obesity, unspecified; Z68.35 Body mass index [BMI] 35.0-35.9, adult; Z86.72 Personal history of thrombophlebitis; Z71.6 Tobacco abuse counseling
CPT/HCPCS: 11042

== ENCOUNTER 2021-06-02 09:00 | Outpatient (RCR) | payer OTHER, SELFPAY ==
[2021-05-03 00:22] VITALS: BP 135/68; PULSE 74; RESP 16; TEMP 36.5
[2021-05-05 07:57] VITALS: BP 159/78; PULSE 84; RESP 18; TEMP 36.6; BMI 35.3
--- NOTE | 2021-05-05 08:22 | PCM.WC.HP ---
History of Present Illness Date of Service: 05/05/21 Chief Complaint: Open wound of the left lateral calf, status-post incision and drainage of abscess History of Wound: This is a 60-year-old male who was admitted to [facility] approximately 1 month prior to presentation with a large abscess on the left lateral calf. On February 11, 2020, he underwent incision and drainage of the abscess. He spent approximately 5 days in the hospital, and was subsequently discharged on Augmentin. The patient claims to sleep on a flat mattress at night. However, he suffers from chronic swelling and edema in both lower extremities. Additionally, he has a history of superficial thrombophlebitis in the left lower extremity, and has undergone a prior left lower extremity vein stripping procedure in the remote past. Patient has developed chronic skin changes in his lower extremities, which include hyperpigmentation and lipodermatosclerosis in the gaiter areas bilaterally. 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 The patient claims to be relatively active. Management the time of presentation included the use of a wet-to-dry gauze packing daily. It is noted that patient underwent a venous duplex examination during his hospitalization recently, that was negative for any evidence of thrombosis, but indicated valvular incompetence of the deep and superficial venous systems bilaterally. [facility] Medical History Chronic venous insufficiency Postphlebitic syndrome with inflammation Home Medications Augmentin 875-125 Tablet 875 mg PO BID 03/18/20 [History Last Taken Unknown] rosuvastatin 20 mg PO DAILY 03/18/20 [History Last Taken Unknown] Social History Smoking Status: Light Smoker (<10/day) Vital Signs Vital Signs Vital Signs: 05/05/21 07:57 Temperature 97.8 F Temperature Source Temporal Pulse Rate 84 Respiratory Rate 18 Blood Pressure 159/78 H Blood Pressure Mean 105 Weight Weight: 246 lb Body Mass Index (BMI) 35.3 Physical Exam Const alert, oriented x3, no apparent distress and well nourished General Appearance: cooperative, comfortable and well developed Orientation / Consciousness: awake, oriented to person, oriented to place and oriented to time HEENT normocephalic and head/scalp atraumatic Head and Scalp: normal to inspection, normocephalic and atraumatic External Ear: external ears normal Eyes PERRL and EOMs intact bilaterally General Eye: normal appearance of both eyes Resp normal respiratory effort, normal air movement, no retractions and no use of accessory muscles Effort and Inspection: able to speak in complete sentences Extremity no calf tenderness Extremity Narrative: Leg and edema are noted in the patient's left lower extremity. Chronic hyperpigmentation and lipodermatosclerosis are noted in the left gaiter area. Scattered large varicosities are also noted. General Extremity: Negative for clubbing or cyanosis Skin Wound Narrative: The wound on the left lateral calf persists. It is smaller in size. Dimensions are documented elsewhere. Wound margins are well beveled. The base of the wound is generally pink and healthy in appearance. There is no sign of infection or cellulitis. There is a small amount of bioburden. Neuro oriented x3, CN's II-XII intact bilaterally, moves all extremities and no focal motor deficits Psych Appearance: grossly normal and appropriate Attitude: calm Activity / Motor Behavior: appropriate eye contact Speech: normal speech Mood & Affect: euthymic mood Thought Process: normal thought process Thought Content: normal thought content Attention / Concentration: attention grossly intact Debridement Note Debridement Note Post-Debridement Measurements and Additional Note: Post-Debridement Measurements/Treatment - Nurse 1 - General Ulcer Assessment Start: 05/05/21 07:57 Freq: Status: Active Protocol: WC.LOWISIAHT Activity Type Activity Date Activity User E-Sign Co-Sign Detail Recorded Client Recorded Date Recorded By Document 05/05/21 07:57 [id number] 05/05/21 08:02 05/05/21 07:57 - Today's Visit Information 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 of service 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 Any new allergies or adverse reactions No Had a fall/change in ADL's that may No increase risk of falls Signs or symptoms of abuse and/or No neglect since last visit Have you been in the hospital since your No last visit? Has dressing in place as prescribed Yes Has compression in place as prescribed Yes Has offloadiing in place as prescribed N/A Experienced any changes in pain level or No management Pain Scale: 0-10 Numeric Is Patient Pain Free? Yes WC - Nurse 1 - General Ulcer Measurement Start: 05/05/21 07:57 Freq: Status: Active Protocol: Activity Type Activity Date Activity User E-Sign Co-Sign Detail Recorded Client Recorded Date Recorded By Document 05/05/21 07:57 PL [id number] 05/05/21 08:02 PL 05/05/21 07:57 Wound Center Nurse 1 #1 Lateral LLE -Current Size (cm) - Length 1.0 -Current Size (cm) - Width 1.0 -Current Size (cm) - Depth 0.1 -Total Square Cm 1.00 -Photo Taken No -Epithelialization None Present -Tunneling No -Undermining/Tunneling No -Circular Undermining No -Exudate Amt Medium -Exudate Type Serosanguineous -Granulation Amt Large (67-100%) -Granulation Quality [place] -Slough/Fibrin Yes -Necrosis Amt Small (1-33%) -Necrotic Tissue Type Adherent Slough -Tenderness on Palpation (Lois-wound No Skin Appearance) -Ulcer Cleansing Rinsed/ Irrigated with Saline -Foul Odor after Cleansing No -Anesthetic Used 5% Lidocaine Gel Wound debrided: Left lateral calf Laterality: Left Type of Debridement: Excisional debridement Anesthesia Used: 5% Lidocaine Gel Depth: Down to and including healthy tissue and in the subcutaneous layer Percentage of wound debrided: 100 Instrument Used: 5mm curette Tissue Removed: Bioburden Severity: Fat Layer Exposed Amount of bleeding with debridement: Mild Bleeding Controlled with: Compression and gauze Patient tolerated procedure: Patient tolerated procedure well Assessment/Plan Assessment/Plan (1) 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: CODE(S): I83.229 - Varicose veins of left lower extremity with both ulcer of unspecified site and inflammation; L97.929 - Non-pressure chronic ulcer of unspecified part of left lower leg with unspecified severity (2) Chronic venous insufficiency: CODE(S): I87.2 - Venous insufficiency (chronic) (peripheral) (3) Postphlebitic syndrome with inflammation: CODE(S): I87.029 - Postthrombotic syndrome with inflammation of unspecified lower extremity (4) Leg swelling: CODE(S): M79.89 - Other specified soft tissue disorders (5) Leg edema: CODE(S): R60.0 - Localized edema (6) Abscess of left leg: CODE(S): L02.416 - Cutaneous abscess of left lower limb (7) Surgical wound present: CODE(S): T14.8XXA - Other injury of unspecified body region, initial encounter (8) Chronic venous insufficiency: CODE(S): I87.2 - Venous insufficiency (chronic) (peripheral) (9) Post-phlebitic dermatosis of both lower extremities: CODE(S): I87.093 - Postthrombotic syndrome with other complications of bilateral lower extremity (10) Hyperpigmentation of skin: CODE(S): L81.9 - Disorder of pigmentation, unspecified (11) Lipodermatosclerosis of both lower extremities: CODE(S): I83.11 - Varicose veins of right lower extremity with inflammation; I83.12 - Varicose veins of left lower extremity with inflammation (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: (13) Wound of left leg: CODE(S): S81.802A - Unspecified open wound, left lower leg, initial encounter QUALIFIERS: Encounter type: subsequent encounter Qualified Code(s): S81.802D - Unspecified open wound, left lower leg, subsequent encounter (14) Obesity (BMI 35.0-39.9 without comorbidity): CODE(S): E66.9 - Obesity, unspecified (15) Personal history of thrombophlebitis: CODE(S): Z86.72 - Personal history of thrombophlebitis (16) Tobacco abuse: CODE(S): Z72.0 - Tobacco use (17) Tobacco abuse counseling: CODE(S): Z71.6 - Tobacco abuse counseling (18) Lymphedema of left leg: CODE(S): I89.0 - Lymphedema, not elsewhere classified PLAN: The patient has been advised to continue conservative treatment measures. These are to include leg elevation. He is to continue sleeping on a flat mattress at night. His legs are to be elevated to heart level, or higher, even during daytime hours. This is to be implemented as much as possible. The patient has been advised to refrain from prolonged, idle standing and sitting. Activity has been encouraged. Implementation of the calf and foot muscle pumps has been explained. Weight loss is also been recommended. The patient has obtained graduated compression stockings of 20 to 30 mmHg compression. While the patient's willing compliance may be adequate, he does work long hours each day at the local [employer], which results in long hours of lower extremity dependency, thus enhancing venous hypertension. There is continued concern as to the patient's occupation and the demands for prolonged idle sitting, which is thought to be a contributing factor to the patient's lack of progress. He is currently working more than 50 hours/week, 10 hours/day. This has been discussed with the patient repeatedly. He admits to often working up to 82 hours/week. In his own words, the patient admits that his work schedule is excessive. We have obtained approval for the use of the Snap VAC for implementation of negative pressure wound therapy. This was implemented recently. However, we have been using 0.25% Dakin's solution, used to moisten gauze, and applied topically on a daily basis. Thus far, it is proved to be of benefit. Because of the recent improvement, we are now to transition to the use of a Dakin's wash daily, and the application of Promogran topically to the wound each day. The patient is to use a SurePress compression wrap, which he will apply on a daily basis. Approval for the use of EpiFix and PuraPly were sought, but denied by the patient's insurance company several times. The patient is not eligible for any skin graft substitutes, based upon his insurance plan. Once again, we have reinforced the need for compression, elevation, avoidance of prolonged idle sitting, etc. We will continue to monitor the patient's wound serially, and to assess the patient's progress. The patient's wound cultures were positive for Staph aureus and strep species, and the patient has completed a course of Augmentin 875 mg p.o. twice daily for a total of 10 days. Additionally, due to the persisting swelling, edema, and lymphedema in the patient's left lower extremity, as well as venous hypertension, we requested preauthorization for the use of pneumatic mechanical compression pumps to the lower extremities. Prior conservative treatments that have been tried include elevation, exercise, compression wraps, and patient education in lymphedema management. Despite these conservative treatments, the patient continues to present with lymphedema. I feel as though additional care in the form of long-term daily home compression pump therapy is warranted at this time in order to maintain proper management of this chronic condition. I am prescribing Lymphapress pneumatic compression pumps, with bilateral leg sleeves and appropriate number of expanders. This is a chronic condition and the device will be needed indefinitely. The prognosis is good with the use of this compression pump. Other modalities have failed. Therefore the patient appears to meet the medical criteria for the home medical equipment. We continue to await receipt of these pumps. Patient smokes approximately 1/2 pack of cigarettes per day, and has been advised to refrain from his smoking habit. Influenza vaccine was not administered today. Patient stands 5 feet 10 inches tall. He weighs 246 pounds. His BMI is 35.3, which places him in a class II obesity category. Weight loss has been recommended, and collaboration with the patient's primary care physician has been advised. The patient will return in 1 week for reevaluation. Total time: 29 minutes.
[2021-05-12 07:59] VITALS: BP 114/85; PULSE 92; RESP 18; TEMP 36.4; BMI 35.3
--- NOTE | 2021-05-12 08:28 | PCM.WC.HP ---
History of Present Illness Date of Service: 05/12/21 Chief Complaint: Open wound of the left lateral calf, status-post incision and drainage of abscess History of Wound: This is a 60-year-old male who was admitted to [facility] approximately 1 month prior to presentation with a large abscess on the left lateral calf. On February 11, 2020, he underwent incision and drainage of the abscess. He spent approximately 5 days in the hospital, and was subsequently discharged on Augmentin. The patient claims to sleep on a flat mattress at night. However, he suffers from chronic swelling and edema in both lower extremities. Additionally, he has a history of superficial thrombophlebitis in the left lower extremity, and has undergone a prior left lower extremity vein stripping procedure in the remote past. Patient has developed chronic skin changes in his lower extremities, which include hyperpigmentation and lipodermatosclerosis in the gaiter areas bilaterally. 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 The patient claims to be relatively active. Management the time of presentation included the use of a wet-to-dry gauze packing daily. It is noted that patient underwent a venous duplex examination during his hospitalization recently, that was negative for any evidence of thrombosis, but indicated valvular incompetence of the deep and superficial venous systems bilaterally. [facility] Medical History Chronic venous insufficiency Postphlebitic syndrome with inflammation Home Medications Augmentin 875-125 Tablet 875 mg PO BID 03/18/20 [History Last Taken Unknown] rosuvastatin 20 mg PO DAILY 03/18/20 [History Last Taken Unknown] Social History Smoking Status: Light Smoker (<10/day) Vital Signs Vital Signs Vital Signs: 05/12/21 07:59 Temperature 97.5 F L Temperature Source Temporal Pulse Rate 92 Respiratory Rate 18 Blood Pressure 114/85 H Blood Pressure Mean 94 Weight Weight: 246 lb Body Mass Index (BMI) 35.3 Physical Exam Const alert, oriented x3, no apparent distress and well nourished General Appearance: cooperative, comfortable and well developed Orientation / Consciousness: awake, oriented to person, oriented to place and oriented to time HEENT normocephalic and head/scalp atraumatic Head and Scalp: normal to inspection, normocephalic and atraumatic External Ear: external ears normal Eyes PERRL and EOMs intact bilaterally General Eye: normal appearance of both eyes Resp normal respiratory effort, normal air movement, no retractions and no use of accessory muscles Effort and Inspection: able to speak in complete sentences Extremity no calf tenderness Extremity Narrative: Slight swelling and edema are noted in the patient's lower extremities bilaterally. Multiple large varicosities are noted bilaterally in the lower extremities. Chronic hyperpigmentation and lipodermatosclerosis are noted in the gaiter areas bilaterally. General Extremity: Negative for clubbing or cyanosis Skin Wound Narrative: The wound on the left lateral calf persists. It is smaller in size. Dimensions are documented elsewhere. There is no sign of infection or cellulitis. There is a moderate amount of bioburden. The base of the wound is generally pink and healthy in appearance. Neuro oriented x3, CN's II-XII intact bilaterally, moves all extremities and no focal motor deficits Psych mental status grossly normal Appearance: grossly normal and appropriate Attitude: calm Activity / Motor Behavior: appropriate eye contact Speech: normal speech Mood & Affect: euthymic mood Thought Process: normal thought process Thought Content: normal thought content Attention / Concentration: attention grossly intact Debridement Note Debridement Note Post-Debridement Measurements and Additional Note: Post-Debridement Measurements/Treatment - Nurse 1 - General Ulcer Assessment Start: 05/05/21 07:57 Freq: Status: Active Protocol: WC.LOWEXT Activity Type Activity Date Activity User E-Sign Co-Sign Detail Recorded Client Recorded Date Recorded By Document 05/05/21 07:57 [id number] 05/05/21 08:02 Document 05/12/21 07:59 [id number] 05/12/21 08:05 PL 05/05/21 05/12/21 07:57 07:59 - Today's Visit Information Type of service Follow-up Visit 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 ) ) Arrival Mode Ambulatory Ambulatory Transfer Assistance None None Patient Identification Verified (Name & Yes Yes ) Patient Requires Transmission-Based No No Precautions Safety Precautions NA NA Height and Weight Body Mass Index (BMI) 35.3 35.3 BMI Classification Obese Obese Vital Signs Temperature (97.8 F-99.1 F) 97.8 F 97.5 F L Temperature Source Temporal Temporal Pulse Rate (60-100) 84 92 Respiratory Rate (12-18) 18 18 Blood Pressure (90/60-120/80) 159/78 H 114/85 H Blood Pressure Mean 105 94 History Since Last Visit- (Skip if this is Patient's initial visit) Have you changed medications since your No No last visit? Any new allergies or adverse reactions No No Had a fall/change in ADL's that may No No increase risk of falls Signs or symptoms of abuse and/or No No neglect since last visit Have you been in the hospital since your No No last visit? Has dressing in place as prescribed Yes Yes Has compression in place as prescribed Yes Yes Has offloadiing in place as prescribed N/A N/A Experienced any changes in pain level or No No management Pain Scale: 0-10 Numeric Is Patient Pain Free? Yes WC - Nurse 1 - General Ulcer Measurement Start: 05/05/21 07:57 Freq: Status: Active Protocol: Activity Type Activity Date Activity User E-Sign Co-Sign Detail Recorded Client Recorded Date Recorded By Document 05/05/21 07:57 PL [id number] 05/05/21 08:02 PL Document 05/12/21 07:59 PL [id number] 05/12/21 08:05 PL 05/05/21 05/12/21 07:57 07:59 Wound Center Nurse 1 #1 Lateral LLE -Combined with other wound No -Current Size (cm) - Length 1.0 0.8 -Current Size (cm) - Width 1.0 0.8 -Current Size (cm) - Depth 0.1 0.1 -Total Square Cm 1.00 0.64 -Photo Taken No No -Epithelialization None Present None Present -Tunneling No No -Undermining/Tunneling No No -Circular Undermining No No -Exudate Amt Medium Medium -Exudate Type Serosanguineous Serosanguineous -Granulation Amt Large (67-100%) Large (67-100%) -Granulation Quality [place] -Slough/Fibrin Yes Yes -Necrosis Amt Small (1-33%) Small (1-33%) -Necrotic Tissue Type Adherent Slough Adherent Slough -Texture (Lois-wound Skin Appearance) No Abnormality -Moisture (Lois-wound Skin Appearance) Dry/Scaly -Color (Lois-wound Skin Appearance) No Abnormality -Tenderness on Palpation (Lois-wound No No Skin Appearance) -Ulcer Cleansing Rinsed/ Rinsed/ Irrigated with Irrigated with Saline Saline -Foul Odor after Cleansing No No -Anesthetic Used 5% Lidocaine 5% Lidocaine Gel Gel WC - Nurse 2 - General Ulcer CM Notes Start: 05/05/21 07:57 Freq: Status: Active Protocol: Activity Type Activity Date Activity User E-Sign Co-Sign Detail Recorded Client Recorded Date Recorded By Document 05/05/21 11:54 PL [id number] 05/05/21 11:55 PL 05/05/21 11:54 Wound Center Nurse 2 -Time 08:17 -Correct Patient Yes -Correct Side, Site, Position Yes -Correct Procedure Yes -Procedure Performed Yes -Type of Procedure Debridement -Clinical Debridement Subcutaneous -Tissue Removed Subcutaneous -Post Debridement (cm) - Length 1.0 -Post Debridement (cm) - Width 0 -Post Debridement (cm) - Depth 0.1 -Total Square (Post) (cm) 0 -Area of Debridement (cm) - Length 1.0 -Area of Debridement (cm) - Width 1.0 -Total Square (Area) (cm) 1.00 -Tunneling No -Undermining/Tunneling No -Circular Undermining No -Wound/Ulcer Outcome Not Healed -Ulcer Cleansing Rinsed/ Irrigated with Saline -Foul Odor after Cleansing No -Bioengineered Tissue No -Bleeding Controlled with Pressure -Treatment Response Procedure Tolerated Well -Debridement - Subq, 1st 20sq cm Yes WC - Nurse 3 - General Ulcer D/C NN Start: 05/05/21 07:57 Freq: Status: Active Protocol: Activity Type Activity Date Activity User E-Sign Co-Sign Detail Recorded Client Recorded Date Recorded By Document 05/05/21 08:51 MAYTE [id number] 05/05/21 08:51 MAYTE 05/05/21 08:51 Wound Care Nurse 3 -Primary Dressing Applied Promogran [place] Matter -Primary Dressing Covered/Secured with Dry Gauze, Secured with Tape -Promogran [place] Matter 1 Left -Compression Wrap Surepress ($) Pain Scale: 0-10 Numeric Is Patient Pain Free? Yes WC - Visit Discharge Discharge Condition Stable Ambulatory Status Ambulatory Transportation Private Auto Wound debrided: Left lateral calf Laterality: Left Type of Debridement: Excisional debridement Anesthesia Used: 5% Lidocaine Gel Depth: Down to and including healthy tissue and in the subcutaneous layer Percentage of wound debrided: 100 Instrument Used: 5mm curette Tissue Removed: Bioburden Severity: Fat Layer Exposed Amount of bleeding with debridement: Mild Bleeding Controlled with: Compression and gauze Patient tolerated procedure: Patient tolerated procedure well Assessment/Plan Assessment/Plan (1) 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: CODE(S): I83.229 - Varicose veins of left lower extremity with both ulcer of unspecified site and inflammation; L97.929 - Non-pressure chronic ulcer of unspecified part of left lower leg with unspecified severity (2) Chronic venous insufficiency: CODE(S): I87.2 - Venous insufficiency (chronic) (peripheral) (3) Postphlebitic syndrome with inflammation: CODE(S): I87.029 - Postthrombotic syndrome with inflammation of unspecified lower extremity (4) Leg swelling: CODE(S): M79.89 - Other specified soft tissue disorders (5) Leg edema: CODE(S): R60.0 - Localized edema (6) Abscess of left leg: CODE(S): L02.416 - Cutaneous abscess of left lower limb (7) Surgical wound present: CODE(S): T14.8XXA - Other injury of unspecified body region, initial encounter (8) Chronic venous insufficiency: CODE(S): I87.2 - Venous insufficiency (chronic) (peripheral) (9) Post-phlebitic dermatosis of both lower extremities: CODE(S): I87.093 - Postthrombotic syndrome with other complications of bilateral lower extremity (10) Hyperpigmentation of skin: CODE(S): L81.9 - Disorder of pigmentation, unspecified (11) Lipodermatosclerosis of both lower extremities: CODE(S): I83.11 - Varicose veins of right lower extremity with inflammation; I83.12 - Varicose veins of left lower extremity with inflammation (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: (13) Wound of left leg: CODE(S): S81.802A - Unspecified open wound, left lower leg, initial encounter QUALIFIERS: Encounter type: subsequent encounter Qualified Code(s): S81.802D - Unspecified open wound, left lower leg, subsequent encounter (14) Obesity (BMI 35.0-39.9 without comorbidity): CODE(S): E66.9 - Obesity, unspecified (15) Personal history of thrombophlebitis: CODE(S): Z86.72 - Personal history of thrombophlebitis (16) Tobacco abuse: CODE(S): Z72.0 - Tobacco use (17) Tobacco abuse counseling: CODE(S): Z71.6 - Tobacco abuse counseling (18) Lymphedema of left leg: CODE(S): I89.0 - Lymphedema, not elsewhere classified PLAN: The patient has been advised to continue conservative treatment measures. These are to include leg elevation. He is to continue sleeping on a flat mattress at night. His legs are to be elevated to heart level, or higher, even during daytime hours. This is to be implemented as much as possible. The patient has been advised to refrain from prolonged, idle standing and sitting. Activity has been encouraged. Implementation of the calf and foot muscle pumps has been explained. Weight loss is also been recommended. The patient has obtained graduated compression stockings of 20 to 30 mmHg compression. While the patient's willing compliance may be adequate, he does work long hours each day at the local [employer], which results in long hours of lower extremity dependency, thus enhancing venous hypertension. There is continued concern as to the patient's occupation and the demands for prolonged idle sitting, which is thought to be a contributing factor to the patient's lack of progress. He is currently working more than 50 hours/week, 10 hours/day. This has been discussed with the patient repeatedly. He admits to often working up to 82 hours/week. In his own words, the patient admits that his work schedule is excessive. We have obtained approval for the use of the Snap VAC for implementation of negative pressure wound therapy. This was implemented recently. However, we have been using 0.25% Dakin's solution, used to moisten gauze, and applied topically on a daily basis. Thus far, it is proved to be of benefit. Because of the recent improvement, we are now to transition to the use of a Dakin's wash daily, and the application of Promogran topically to the wound each day. The patient is to use a SurePress compression wrap, which he will apply on a daily basis. Approval for the use of EpiFix and PuraPly were sought, but denied by the patient's insurance company several times. The patient is not eligible for any skin graft substitutes, based upon his insurance plan. Once again, we have reinforced the need for compression, elevation, avoidance of prolonged idle sitting, etc. We will continue to monitor the patient's wound serially, and to assess the patient's progress. The patient's wound cultures were positive for Staph aureus and strep species, and the patient has completed a course of Augmentin 875 mg p.o. twice daily for a total of 10 days. Additionally, due to the persisting swelling, edema, and lymphedema in the patient's left lower extremity, as well as venous hypertension, we requested preauthorization for the use of pneumatic mechanical compression pumps to the lower extremities. Prior conservative treatments that have been tried include elevation, exercise, compression wraps, and patient education in lymphedema management. Despite these conservative treatments, the patient continues to present with lymphedema. I feel as though additional care in the form of long-term daily home compression pump therapy is warranted at this time in order to maintain proper management of this chronic condition. I am prescribing Lymphapress pneumatic compression pumps, with bilateral leg sleeves and appropriate number of expanders. This is a chronic condition and the device will be needed indefinitely. The prognosis is good with the use of this compression pump. Other modalities have failed. Therefore the patient appears to meet the medical criteria for the home medical equipment. We continue to await receipt of these pumps. Patient smokes approximately 1/2 pack of cigarettes per day, and has been advised to refrain from his smoking habit. Influenza vaccine was not administered today. Patient stands 5 feet 10 inches tall. He weighs 246 pounds. His BMI is 35.3, which places him in a class II obesity category. Weight loss has been recommended, and collaboration with the patient's primary care physician has been advised. The patient will be on vacation next week, and will return in 2 weeks for reevaluation. Total time: 28 minutes.
[2021-05-26 07:53] VITALS: BP 160/75; PULSE 86; RESP 16; BMI 35.3
--- NOTE | 2021-05-26 08:35 | HP.PCM_ITS ---
History of Present Illness Date of Service: 05/26/21 Chief Complaint: Open wound of the left lateral calf, status-post incision and drainage of abscess History of Wound: This is a 60-year-old male who was admitted to [facility] approximately 1 month prior to presentation with a large a bscess on the left lateral calf. On February 11, 2020, he underwent incision and drainage of the abscess. He spent approximately 5 days in the hospital, and was subsequently discharged on Augmentin. The patient claims to sleep on a flat mattress at night. However, he suffers from chronic swelling and edema in both lower extremities. Additionally, he has a history of superficial thrombophlebitis in the left lower extremity, and has undergone a prior left lower extremity vein stripping procedure in the remote past. Patient has developed chronic skin changes in his lower extremities, which include hyperpigmentation and lipodermatosclerosis in the gaiter areas bilaterally. 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 The patient claims to be relatively active. Management the time of presentation included the use of a wet-to-dry gauze packing daily. It is noted that patient underwent a venous duplex examination during his hospitalization recently, that was negative for any evidence of thrombosis, but indicated valvular incompetence of the deep and superficial venous systems bilaterally. [facility] Medical History Chronic venous insufficiency Postphlebitic syndrome with inflammation Home Medications Augmentin 875-125 Tablet 875 mg PO BID 03/18/20 [History Last Taken Unknown] rosuvastatin 20 mg PO DAILY 03/18/20 [History Last Taken Unknown] Social History Smoking Status: Light Smoker (<10/day) Vital Signs Vital Signs Vital Signs: 05/26/21 07:53 Pulse Rate 86 Respiratory Rate 16 Blood Pressure 160/75 H Blood Pressure Mean 103 Blood Pressure Source Monitor Blood Pressure Position Sitting Blood Pressure Location Left Arm Oxygen Delivery Method Room Air Weight Weight: 246 lb Body Mass Index (BMI) 35.3 Physical Exam Const alert, oriented x3, no apparent distress and well nourished General Appearance: cooperative, comfortable, well kempt and well developed Orientation / Consciousness: awake, oriented to person, oriented to place and oriented to time HEENT normocephalic and head/scalp atraumatic Head and Scalp: normal to inspection, normocephalic and atraumatic External Ear: external ears normal Eyes PERRL and EOMs intact bilaterally General Eye: normal appearance of both eyes Resp normal respiratory effort, normal air movement, no retractions and no use of accessory muscles Effort and Inspection: able to speak in complete sentences Extremity no calf tenderness Extremity Narrative: Moderate swelling and edema are noted in the patient's lower extremities bilaterally, particularly on the right. Chronic venous skin changes are noted in the left lower extremity, with hyperpigmentation and lipodermatosclerosis. There are also multiple large, bulging varicosities in the left lower extremity. General Extremity: Negative for clubbing or cyanosis Skin Wound Narrative: The wound on the left lateral calf persists. It appears to be smaller in size. Dimensions are documented elsewhere. There is no sign of infection or cellulitis. There is a moderate amount of bioburden. Neuro oriented x3, CN's II-XII intact bilaterally and moves all extremities Sensorium / Orientation: awake, alert, oriented to person, oriented to place and oriented to time Psych Appearance: grossly normal and appropriate Attitude: calm Activity / Motor Behavior: appropriate eye contact Speech: normal speech Mood & Affect: euthymic mood Thought Process: normal thought process Thought Content: normal thought content Attention / Concentration: attention grossly intact Debridement Note Debridement Note Post-Debridement Measurements and Additional Note: Post-Debridement Measurements/Treatment - Nurse 1 - General Ulcer Assessment Start: 05/05/21 07:57 Freq: Status: Active Protocol: DIGNA Activity Type Activity Date Activity User E-Sign Co-Sign Detail Recorded Client Recorded Date Recorded By Document 05/05/21 07:57 [id number] 05/05/21 08:02 Document 05/12/21 07:59 [id number] 05/12/21 08:05 PL Document 05/26/21 07:53 [facility] [id number] 05/26/21 07:57 [facility] 05/05/21 05/12/21 05/26/21 07:57 07:59 07:53 - Today's Visit Information Type of service Follow-up Visit Follow-up Visit Follow-up Visit (Physician/CONSOLE ASSEMBLER (Physician/CONSOLE ASSEMBLER (Physician/CONSOLE ASSEMBLER ) ) ) Arrival Mode Ambulatory Ambulatory Ambulatory Transfer Assistance None None None Patient Identification Verified (Name & Yes Yes Yes ) Patient Requires Transmission-Based No No No Precautions Safety Precautions NA NA Height and Weight Body Mass Index (BMI) 35.3 35.3 35.3 BMI Classification Obese Obese Obese Vital Signs Temperature (97.8 F-99.1 F) 97.8 F 97.5 F L Temperature Source Temporal Temporal Pulse Rate (60-100) 84 92 86 Pulse Location Monitor Respiratory Rate (12-18) 18 18 16 Respiratory rate source Observation Oxygen Delivery Method Room Air Blood Pressure (90/60-120/80) 159/78 H 114/85 H 160/75 H Blood Pressure Mean 105 94 103 Source Monitor Position Sitting Blood Pressure Location Left Arm History Since Last Visit- (Skip if this is Patient's initial visit) Have you changed medications since your No No No last visit? Any new allergies or adverse reactions No No No Had a fall/change in ADL's that may No No No increase risk of falls Signs or symptoms of abuse and/or No No No neglect since last visit Have you been in the hospital since your No No last visit? Has dressing in place as prescribed Yes Yes Yes Has compression in place as prescribed Yes Yes N/A Has offloadiing in place as prescribed N/A N/A N/A Experienced any changes in pain level or No No No management Left Footwear Regular Shoe Right Footwear Regular Shoe Pain Scale: 0-10 Numeric Is Patient Pain Free? Yes Yes WC - Nurse 1 - General Ulcer Measurement Start: 05/05/21 07:57 Freq: Status: Active Protocol: Activity Type Activity Date Activity User E-Sign Co-Sign Detail Recorded Client Recorded Date Recorded By Document 05/05/21 07:57 [id number] 05/05/21 08:02 PL Document 05/12/21 07:59 [id number] 05/12/21 08:05 PL Document 05/26/21 07:53 [facility] [id number] 05/26/21 07:57 [facility] 05/05/21 05/12/21 05/26/21 07:57 07:59 07:53 Wound Center Nurse 1 #1 Lateral LLE -Combined with other wound No No -Current Size (cm) - Length 1.0 0.8 1.1 -Current Size (cm) - Width 1.0 0.8 0.8 -Current Size (cm) - Depth 0.1 0.1 0.2 -Total Square Cm 1.00 0.64 0.88 -Photo Taken No No -Epithelialization None Present None Present -Tunneling No No -Undermining/Tunneling No No -Circular Undermining No No -Exudate Amt Medium Medium Small -Exudate Type Serosanguineous Serosanguineous Serosanguineous -Wound Margin Distinct, Outline Attached -Granulation Amt Large (67-100%) Large (67-100%) Small (1-33%) -Granulation Quality East Bernard East Bernard [place] Bernard -Slough/Fibrin Yes Yes -Necrosis Amt Small (1-33%) Small (1-33%) Small (1-33%) -Necrotic Tissue Type Adherent Slough Adherent Slough Adherent Slough -Texture (Lois-wound Skin Appearance) No Abnormality Assessed, Scarring -Moisture (Lois-wound Skin Appearance) Dry/Scaly No Abnormality, Assessed -Color (Lois-wound Skin Appearance) No Abnormality No Abnormality, Assessed -Temperature (Lois-wound Skin No Abnormality Appearance) (Pt Warm) -Tenderness on Palpation (Lois-wound No No No Skin Appearance) -Ulcer Cleansing Rinsed/ Rinsed/ Rinsed/ Irrigated with Irrigated with Irrigated with Saline Saline Saline -Foul Odor after Cleansing No No No -Anesthetic Used 5% Lidocaine 5% Lidocaine 5% Lidocaine Gel Gel Gel Left Calf (cm) 44 Left Ankle (cm) 26.2 WC - Nurse 2 - General Ulcer CM Notes Start: 05/05/21 07:57 Freq: Status: Active Protocol: Activity Type Activity Date Activity User E-Sign Co-Sign Detail Recorded Client Recorded Date Recorded By Document 05/05/21 11:54 PL [id number] 05/05/21 11:55 PL Document 05/12/21 12:07 PL [id number] 05/12/21 12:08 PL Document 05/26/21 08:26 PL [id number] 05/26/21 08:27 PL 05/05/21 05/12/21 05/26/21 11:54 12:07 08:26 Wound Center Nurse 2 #1 Lateral LLE -Time 08:17 08:14 08:10 -Correct Patient Yes Yes Yes -Correct Side, Site, Position Yes Yes Yes -Correct Procedure Yes Yes Yes -Procedure Performed Yes Yes Yes -Type of Procedure Debridement Debridement Debridement -Clinical Debridement Subcutaneous Subcutaneous Subcutaneous -Tissue Removed Subcutaneous Subcutaneous Subcutaneous -Post Debridement (cm) - Length 1.0 0.8 1.1 -Post Debridement (cm) - Width 0 0.8 0.8 -Post Debridement (cm) - Depth 0.1 0.1 0.2 -Total Square (Post) (cm) 0 0.64 0.88 -Area of Debridement (cm) - Length 1.0 0.8 1.8 -Area of Debridement (cm) - Width 1.0 0.8 0.8 -Total Square (Area) (cm) 1.00 0.64 1.44 -Tunneling No No No -Undermining/Tunneling No No No -Circular Undermining No No No -Wound/Ulcer Outcome Not Healed Not Healed Not Healed -Ulcer Cleansing Rinsed/ Rinsed/ Rinsed/ Irrigated with Irrigated with Irrigated with Saline Saline Saline -Foul Odor after Cleansing No No No -Bioengineered Tissue No No No -Bleeding Controlled with Pressure NA NA -Treatment Response Procedure Procedure Procedure Tolerated Well Tolerated Well Tolerated Well -Debridement - Subq, 1st 20sq cm Yes Yes Yes - Nurse 3 - General Ulcer D/C NN Start: 05/05/21 07:57 Freq: Status: Active Protocol: Activity Type Activity Date Activity User E-Sign Co-Sign Detail Recorded Client Recorded Date Recorded By Document 05/05/21 08:51 KR [id number] 05/05/21 08:51 KR Document 05/12/21 12:07 PL [id number] 05/12/21 12:08 PL Document 05/26/21 08:16 KR [id number] 05/26/21 08:16 KR 05/05/21 05/12/21 05/26/21 08:51 12:07 08:16 Wound Care Nurse 3 #1 Lateral LLE -Ulcer Cleansing Rinsed/ Irrigated with Saline -Primary Dressing Applied Promogran [place] Matter -Other Dressing Promogran -Primary Dressing Covered/Secured with Dry Gauze, Dry Gauze & Dry Gauze, Secured with Roll Gauze, Secured with Tape Secured with Tape Tape -Promogran [place] Matter 1 Left -Compression Wrap Surepress ($) Surepress ($) Surepress ($) Pain Scale: 0-10 Numeric Is Patient Pain Free? Yes Yes - Visit Discharge Discharge Condition Stable Stable Stable Ambulatory Status Ambulatory Ambulatory Ambulatory Transportation Private Auto Private Auto Private Auto Clinical Summary of Care Provided Yes Wound debrided: Left lateral calf Laterality: Left Type of Debridement: Excisional debridement Anesthesia Used: 5% Lidocaine Gel Depth: Down to and including healthy tissue and in the subcutaneous layer Percentage of wound debrided: 100 Instrument Used: 5mm curette Tissue Removed: Bioburden Severity: Fat Layer Exposed Amount of bleeding with debridement: Mild Bleeding Controlled with: Compression and gauze Patient tolerated procedure: Patient tolerated procedure well Assessment/Plan Assessment/Plan (1) 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: CODE(S): I83.229 - Varicose veins of left lower extremity with both ulcer of unspecified site and inflammation; L97.929 - Non-pressure chronic ulcer of unspecified part of left lower leg with unspecified severity (2) Chronic venous insufficiency: CODE(S): I87.2 - Venous insufficiency (chronic) (peripheral) (3) Postphlebitic syndrome with inflammation: CODE(S): I87.029 - Postthrombotic syndrome with inflammation of unspecified lower extremity (4) Leg swelling: CODE(S): M79.89 - Other specified soft tissue disorders (5) Leg edema: CODE(S): R60.0 - Localized edema (6) Abscess of left leg: CODE(S): L02.416 - Cutaneous abscess of left lower limb (7) Surgical wound present: CODE(S): T14.8XXA - Other injury of unspecified body region, initial encounter (8) Chronic venous insufficiency: CODE(S): I87.2 - Venous insufficiency (chronic) (peripheral) (9) Post-phlebitic dermatosis of both lower extremities: CODE(S): I87.093 - Postthrombotic syndrome with other complications of bilateral lower extremity (10) Hyperpigmentation of skin: CODE(S): L81.9 - Disorder of pigmentation, unspecified (11) Lipodermatosclerosis of both lower extremities: CODE(S): I83.11 - Varicose veins of right lower extremity with inflammation; I83.12 - Varicose veins of left lower extremity with inflammation (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: (13) Wound of left leg: CODE(S): S81.802A - Unspecified open wound, left lower leg, initial encounter QUALIFIERS: Encounter type: subsequent encounter Qualified Code(s): S81.802D - Unspecified open wound, left lower leg, subsequent encounter (14) Personal history of thrombophlebitis: CODE(S): Z86.72 - Personal history of thrombophlebitis (15) Obesity (BMI 35.0-39.9 without comorbidity): CODE(S): E66.9 - Obesity, unspecified (16) Tobacco abuse: CODE(S): Z72.0 - Tobacco use (17) Tobacco abuse counseling: CODE(S): Z71.6 - Tobacco abuse counseling (18) Lymphedema of left leg: CODE(S): I89.0 - Lymphedema, not elsewhere classified PLAN: The patient has been advised to continue conservative treatment measures. These are to include leg elevation. He is to continue sleeping on a flat mattress at night. His legs are to be elevated to heart level, or higher, even during daytime hours. This is to be implemented as much as possible. The patient has been advised to refrain from prolonged, idle standing and sitting. Activity has been encouraged. Implementation of the calf and foot muscle pumps has been explained. Weight loss is also been recommended. The patient has obtained graduated compression stockings of 20 to 30 mmHg compression. While the patient's willing compliance may be adequate, he does work long hours each day at the local [employer], which results in long hours of lower extremity dependency, thus enhancing venous hypertension. There is continued concern as to the patient's occupation and the demands for prolonged idle sitting, which is thought to be a contributing factor to the patient's lack of progress. He is currently working more than 50 hours/week, 10 hours/day. This has been discussed with the patient repeatedly. It is noted that the patient's lower extremities are swollen and edematous today, suggesting the patient has lapsed somewhat in his level of compliance. In this regard, he has been once again advised to elevate his lower extremities as much as possible, use SurePress wraps on a daily basis, avoid prolonged idle sitting and standing, remain active, etc. He admits to often working up to 82 hours/week. In his own words, the patient admits that his work schedule is excessive. We have obtained approval for the use of the Snap VAC for implementation of negative pressure wound therapy. This was implemented recently. However, we have been using 0.25% Dakin's solution, used to moisten gauze, and applied topically on a daily basis. Thus far, it is proved to be of benefit. Because of the recent improvement, we are now to transition to the use of a Dakin's wash daily, and the application of Promogran topically to the wound each day. The patient is to use a SurePress compression wrap, which he will apply on a daily basis. Approval for the use of EpiFix and PuraPly were sought, but denied by the patient's insurance company several times. The patient is not eligible for any skin graft substitutes, based upon his insurance plan. Once again, we have reinforced the need for compression, elevation, avoidance of prolonged idle sitting, etc. We will continue to monitor the patient's wound serially, and to assess the patient's progress. The patient's wound cultures were positive for Staph aureus and strep species, and the patient has completed a course of Augmentin 875 mg p.o. twice daily for a total of 10 days. Additionally, due to the persisting swelling, edema, and lymphedema in the patient's left lower extremity, as well as venous hypertension, we requested preauthorization for the use of pneumatic mechanical compression pumps to the lower extremities. Prior conservative treatments that have been tried include elevation, exercise, compression wraps, and patient education in lymphedema management. Despite these conservative treatments, the patient continues to present with lymphedema. I feel as though additional care in the form of long-term daily home compr ession pump therapy is warranted at this time in order to maintain proper management of this chronic condition. I am prescribing Lymphapress pneumatic compression pumps, with bilateral leg sleeves and appropriate number of expanders. This is a chronic condition and the device will be needed indefinitely. The prognosis is good with the use of this compression pump. Other modalities have failed. Therefore the patient appears to meet the medical criteria for the home medical equipment. We continue to await receipt of these pumps. Patient smokes approximately 1/2 pack of cigarettes per day, and has been advised to refrain from his smoking habit. Influenza vaccine was not administered today. Patient stands 5 feet 10 inches tall. He weighs 246 pounds. His BMI is 35.3, which places him in a class II obesity category. Weight loss has been recommended, and collaboration with the patient's primary care physician has been advised. The patient will return in 1 week for reevaluation. Total time: 29 minutes.
[2021-06-02 09:03] VITALS: BP 143/73; PULSE 82; TEMP 36.3; BMI 35.3
--- NOTE | 2021-06-02 10:20 | HP.PCM_ITS ---
History of Present Illness Date of Service: 06/02/21 Chief Complaint: Open wound of the left lateral calf, status-post incision and drainage of abscess History of Wound: This is a 60-year-old male who was admitted to [facility] approximately 1 month prior to presentation with a large a bscess on the left lateral calf. On February 11, 2020, he underwent incision and drainage of the abscess. He spent approximately 5 days in the hospital, and was subsequently discharged on Augmentin. The patient claims to sleep on a flat mattress at night. However, he suffers from chronic swelling and edema in both lower extremities. Additionally, he has a history of superficial thrombophlebitis in the left lower extremity, and has undergone a prior left lower extremity vein stripping procedure in the remote past. Patient has developed chronic skin changes in his lower extremities, which include hyperpigmentation and lipodermatosclerosis in the gaiter areas bilaterally. 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 The patient claims to be relatively active. Management the time of presentation included the use of a wet-to-dry gauze packing daily. It is noted that patient underwent a venous duplex examination during his hospitalization recently, that was negative for any evidence of thrombosis, but indicated valvular incompetence of the deep and superficial venous systems bilaterally. [facility] Medical History Chronic venous insufficiency Postphlebitic syndrome with inflammation Home Medications Augmentin 875-125 Tablet 875 mg PO BID 03/18/20 [History Last Taken Unknown] rosuvastatin 20 mg PO DAILY 03/18/20 [History Last Taken Unknown] Social History Smoking Status: Light Smoker (<10/day) Vital Signs Vital Signs Vital Signs: 06/02/21 09:03 Temperature 97.4 F L Temperature Source Temporal Pulse Rate 82 Blood Pressure 143/73 H Blood Pressure Mean 96 Blood Pressure Source Monitor Blood Pressure Position Semi-Fowlers Blood Pressure Location Right Arm Weight Weight: 246 lb Body Mass Index (BMI) 35.3 Physical Exam Const alert, oriented x3, no apparent distress and well nourished General Appearance: cooperative, comfortable and well developed Orientation / Consciousness: awake, oriented to person, oriented to place and oriented to time HEENT normocephalic and head/scalp atraumatic Head and Scalp: normal to inspection, normocephalic and atraumatic External Ear: external ears normal Eyes PERRL and EOMs intact bilaterally General Eye: normal appearance of both eyes Resp normal respiratory effort, normal air movement, no retractions and no use of accessory muscles Effort and Inspection: able to speak in complete sentences Extremity no calf tenderness Extremity Narrative: Slight swelling and edema are noted in the patient's left lower extremity. Chronic hyperpigmentation and lipodermatosclerosis are noted in the left gaiter area. Several large, prominent varicosities are also noted. General Extremity: Negative for clubbing or cyanosis Skin Wound Narrative: The ulceration on the left lateral calf persists. It appears to be smaller in size. Dimensions are documented elsewhere. There is no sign of infection or cellulitis. There is a moderate amount of bioburden. Neuro oriented x3, CN's II-XII intact bilaterally, moves all extremities and no focal motor deficits Sensorium / Orientation: awake, alert, oriented to person, oriented to place and oriented to time Psych Appearance: grossly normal and appropriate Attitude: calm Activity / Motor Behavior: appropriate eye contact Speech: normal speech Mood & Affect: euthymic mood Thought Process: normal thought process Thought Content: normal thought content Attention / Concentration: attention grossly intact Debridement Note Debridement Note Post-Debridement Measurements and Additional Note: Post-Debridement Measurements/Treatment - Nurse 1 - General Ulcer Assessment Start: 05/05/21 07:57 Freq: Status: Active Protocol: KISHA.JAMEL Activity Type Activity Date Activity User E-Sign Co-Sign Detail Recorded Client Recorded Date Recorded By Document 05/05/21 07:57 PL [id number] 05/05/21 08:02 PL Document 05/12/21 07:59 PL [id number] 05/12/21 08:05 PL Document 05/26/21 07:53 [facility] [id number] 05/26/21 07:57 BM Document 06/02/21 09:03 KR [id number] 06/02/21 09:09 KR 05/05/21 05/12/21 05/26/21 07:57 07:59 07:53 - Today's Visit Information Type of service Follow-up Visit Follow-up Visit Follow-up Visit (Physician/MANDOLIN REPAIR PERSON (Physician/MANDOLIN REPAIR PERSON (Physician/MANDOLIN REPAIR PERSON ) ) ) Arrival Mode Ambulatory Ambulatory Ambulatory Transfer Assistance None None None Patient Identification Verified (Name & Yes Yes Yes ) Patient Requires Transmission-Based No No No Precautions Safety Precautions NA NA Height and Weight Body Mass Index (BMI) 35.3 35.3 35.3 BMI Classification Obese Obese Obese Vital Signs Temperature (97.8 F-99.1 F) 97.8 F 97.5 F L Temperature Source Temporal Temporal Pulse Rate (60-100) 84 92 86 Pulse Location Monitor Respiratory Rate (12-18) 18 18 16 Respiratory rate source Observation Oxygen Delivery Method Room Air Blood Pressure (90/60-120/80) 159/78 H 114/85 H 160/75 H Blood Pressure Mean 105 94 103 Source Monitor Position Sitting Blood Pressure Location Left Arm History Since Last Visit- (Skip if this is Patient's initial visit) Have you changed medications since your No No No last visit? Any new allergies or adverse reactions No No No Had a fall/change in ADL's that may No No No increase risk of falls Signs or symptoms of abuse and/or No No No neglect since last visit Have you been in the hospital since your No No last visit? Has dressing in place as prescribed Yes Yes Yes Has compression in place as prescribed Yes Yes N/A Has offloadiing in place as prescribed N/A N/A N/A Experienced any changes in pain level or No No No management Left Footwear Regular Shoe Right Footwear Regular Shoe Pain Scale: 0-10 Numeric Is Patient Pain Free? Yes Yes 06/02/21 09:03 WC - Today's Visit Information Type of service Follow-up Visit (Physician/MANDOLIN REPAIR PERSON ) Arrival Mode Ambulatory Transfer Assistance Patient Identification Verified (Name & Yes ) Patient Requires Transmission-Based Precautions Safety Precautions Height and Weight Body Mass Index (BMI) 35.3 BMI Classification Obese Vital Signs Temperature (97.8 F-99.1 F) 97.4 F L Temperature Source Temporal Pulse Rate (60-100) 82 Pulse Location Monitor Respiratory Rate (12-18) Respiratory rate source Oxygen Delivery Method Blood Pressure (90/60-120/80) 143/73 H Blood Pressure Mean 96 Source Monitor Position Semi-Fowlers Blood Pressure Location Right Arm History Since Last Visit- (Skip if this is Patient's initial visit) Have you changed medications since your No last visit? Any new allergies or adverse reactions No Had a fall/change in ADL's that may No increase risk of falls Signs or symptoms of abuse and/or No neglect since last visit Have you been in the hospital since your No last visit? Has dressing in place as prescribed Yes Has compression in place as prescribed N/A Has offloadiing in place as prescribed N/A Experienced any changes in pain level or No management Left Footwear Regular Shoe Right Footwear Regular Shoe Pain Scale: 0-10 Numeric Is Patient Pain Free? Yes WC - Nurse 1 - General Ulcer Measurement Start: 05/05/21 07:57 Freq: Status: Active Protocol: Activity Type Activity Date Activity User E-Sign Co-Sign Detail Recorded Client Recorded Date Recorded By Document 05/05/21 07:57 PL [id number] 05/05/21 08:02 PL Document 05/12/21 07:59 PL [id number] 05/12/21 08:05 PL Document 05/26/21 07:53 BMF [id number] 05/26/21 07:57 BMF Document 06/02/21 09:03 KR [id number] 06/02/21 09:09 KR 05/05/21 05/12/21 05/26/21 07:57 07:59 07:53 Wound Center Nurse 1 #1 Lateral LLE -Combined with other wound No No -Current Size (cm) - Length 1.0 0.8 1.1 -Current Size (cm) - Width 1.0 0.8 0.8 -Current Size (cm) - Depth 0.1 0.1 0.2 -Total Square Cm 1.00 0.64 0.88 -Photo Taken No No -Epithelialization None Present None Present -Tunneling No No -Undermining/Tunneling No No -Circular Undermining No No -Exudate Amt Medium Medium Small -Exudate Type Serosanguineous Serosanguineous Serosanguineous -Wound Margin Distinct, Outline Attached -Granulation Amt Large (67-100%) Large (67-100%) Small (1-33%) -Granulation Quality [place] -Slough/Fibrin Yes Yes -Necrosis Amt Small (1-33%) Small (1-33%) Small (1-33%) -Necrotic Tissue Type Adherent Slough Adherent Slough Adherent Slough -Texture (Lois-wound Skin Appearance) No Abnormality Assessed, Scarring -Moisture (Lois-wound Skin Appearance) Dry/Scaly No Abnormality, Assessed -Color (Lois-wound Skin Appearance) No Abnormality No Abnormality, Assessed -Temperature (Lois-wound Skin No Abnormality Appearance) (Pt Warm) -Tenderness on Palpation (Lois-wound No No No Skin Appearance) -Ulcer Cleansing Rinsed/ Rinsed/ Rinsed/ Irrigated with Irrigated with Irrigated with Saline Saline Saline -Foul Odor after Cleansing No No No -Anesthetic Used 5% Lidocaine 5% Lidocaine 5% Lidocaine Gel Gel Gel Left Calf (cm) 44 Left Ankle (cm) 26.2 06/02/21 09:03 Wound Center Nurse 1 #1 Lateral LLE -Combined with other wound -Current Size (cm) - Length 0.6 -Current Size (cm) - Width 0.7 -Current Size (cm) - Depth 0.2 -Total Square Cm 0.42 -Photo Taken -Epithelialization -Tunneling -Undermining/Tunneling -Circular Undermining -Exudate Amt Small -Exudate Type Serosanguineous -Wound Margin Distinct, Outline Attached -Granulation Amt Small (1-33%) -Granulation Quality Pale -Slough/Fibrin -Necrosis Amt Small (1-33%) -Necrotic Tissue Type Adherent Slough -Texture (Lois-wound Skin Appearance) Assessed, Scarring -Moisture (Lois-wound Skin Appearance) No Abnormality, Assessed -Color (Lois-wound Skin Appearance) No Abnormality, Assessed -Temperature (Lois-wound Skin No Abnormality Appearance) (Pt Warm) -Tenderness on Palpation (Lois-wound No Skin Appearance) -Ulcer Cleansing Rinsed/ Irrigated with Saline -Foul Odor after Cleansing No -Anesthetic Used 5% Lidocaine Gel Left Calf (cm) Left Ankle (cm) WC - Nurse 2 - General Ulcer CM Notes Start: 05/05/21 07:57 Freq: Status: Active Protocol: Activity Type Activity Date Activity User E-Sign Co-Sign Detail Recorded Client Recorded Date Recorded By Document 05/05/21 11:54 PL [id number] 05/05/21 11:55 PL Document 05/12/21 12:07 PL [id number] 05/12/21 12:08 PL Document 05/26/21 08:26 PL [id number] 05/26/21 08:27 PL 05/05/21 05/12/21 05/26/21 11:54 12:07 08:26 Wound Center Nurse 2 -Time 08:17 08:14 08:10 -Correct Patient Yes Yes Yes -Correct Side, Site, Position Yes Yes Yes -Correct Procedure Yes Yes Yes -Procedure Performed Yes Yes Yes -Type of Procedure Debridement Debridement Debridement -Clinical Debridement Subcutaneous Subcutaneous Subcutaneous -Tissue Removed Subcutaneous Subcutaneous Subcutaneous -Post Debridement (cm) - Length 1.0 0.8 1.1 -Post Debridement (cm) - Width 0 0.8 0.8 -Post Debridement (cm) - Depth 0.1 0.1 0.2 -Total Square (Post) (cm) 0 0.64 0.88 -Area of Debridement (cm) - Length 1.0 0.8 1.8 -Area of Debridement (cm) - Width 1.0 0.8 0.8 -Total Square (Area) (cm) 1.00 0.64 1.44 -Tunneling No No No -Undermining/Tunneling No No No -Circular Undermining No No No -Wound/Ulcer Outcome Not Healed Not Healed Not Healed -Ulcer Cleansing Rinsed/ Rinsed/ Rinsed/ Irrigated with Irrigated with Irrigated with Saline Saline Saline -Foul Odor after Cleansing No No No -Bioengineered Tissue No No No -Bleeding Controlled with Pressure NA NA -Treatment Response Procedure Procedure Procedure Tolerated Well Tolerated Well Tolerated Well -Debridement - Subq, 1st 20sq cm Yes Yes Yes WC - Nurse 3 - General Ulcer D/C NN Start: 05/05/21 07:57 Freq: Status: Active Protocol: Activity Type Activity Date Activity User E-Sign Co-Sign Detail Recorded Client Recorded Date Recorded By Document 05/05/21 08:51 KR [id number] 05/05/21 08:51 KR Document 05/12/21 12:07 PL [id number] 05/12/21 12:08 PL Document 05/26/21 08:16 KR [id number] 05/26/21 08:16 KR 05/05/21 05/12/21 05/26/21 08:51 12:07 08:16 Wound Care Nurse 3 #1 Lateral LLE -Ulcer Cleansing Rinsed/ Irrigated with Saline -Primary Dressing Applied Promogran [place] Matter -Other Dressing Promogran -Primary Dressing Covered/Secured with Dry Gauze, Dry Gauze & Dry Gauze, Secured with Roll Gauze, Secured with Tape Secured with Tape Tape -Promogran [place] Matter 1 Left -Compression Wrap Surepress ($) Surepress ($) Surepress ($) Pain Scale: 0-10 Numeric Is Patient Pain Free? Yes Yes WC - Visit Discharge Discharge Condition Stable Stable Stable Ambulatory Status Ambulatory Ambulatory Ambulatory Transportation Private Auto Private Auto Private Auto Clinical Summary of Care Provided Yes Wound debrided: Left lateral calf Laterality: Left Type of Debridement: Excisional debridement Anesthesia Used: 5% Lidocaine Gel Depth: Down to and including healthy tissue and in the subcutaneous layer Percentage of wound debrided: 100 Instrument Used: 5mm curette Tissue Removed: Bioburden Severity: Fat Layer Exposed Amount of bleeding with debridement: Mild Bleeding Controlled with: Compression and gauze Patient tolerated procedure: Patient tolerated procedure well Assessment/Plan Assessment/Plan (1) 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: CODE(S): I83.229 - Varicose veins of left lower extremity with both ulcer of unspecified site and inflammation; L97.929 - Non-pressure chronic ulcer of unspecified part of left lower leg with unspecified severity (2) Chronic venous insufficiency: CODE(S): I87.2 - Venous insufficiency (chronic) (peripheral) (3) Postphlebitic syndrome with inflammation: CODE(S): I87.029 - Postthrombotic syndrome with inflammation of unspecified lower extremity (4) Leg swelling: CODE(S): M79.89 - Other specified soft tissue disorders (5) Leg edema: CODE(S): R60.0 - Localized edema (6) Abscess of left leg: CODE(S): L02.416 - Cutaneous abscess of left lower limb (7) Surgical wound present: CODE(S): T14.8XXA - Other injury of unspecified body region, initial encounter (8) Chronic venous insufficiency: CODE(S): I87.2 - Venous insufficiency (chronic) (peripheral) (9) Post-phlebitic dermatosis of both lower extremities: CODE(S): I87.093 - Postthrombotic syndrome with other complications of bilateral lower extremity (10) Hyperpigmentation of skin: CODE(S): L81.9 - Disorder of pigmentation, unspecified (11) Lipodermatosclerosis of both lower extremities: CODE(S): I83.11 - Varicose veins of right lower extremity with inflammation; I83.12 - Varicose veins of left lower extremity with inflammation (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: (13) Wound of left leg: CODE(S): S81.802A - Unspecified open wound, left lower leg, initial encounter QUALIFIERS: Encounter type: subsequent encounter Qualified Code(s): S81.802D - Unspecified open wound, left lower leg, subsequent encounter (14) Obesity (BMI 35.0-39.9 without comorbidity): CODE(S): E66.9 - Obesity, unspecified (15) Personal history of thrombophlebitis: CODE(S): Z86.72 - Personal history of thrombophlebitis (16) Tobacco abuse: CODE(S): Z72.0 - Tobacco use (17) Tobacco abuse counseling: CODE(S): Z71.6 - Tobacco abuse counseling (18) Lymphedema of left leg: CODE(S): I89.0 - Lymphedema, not elsewhere classified PLAN: There appears to be an improvement since the patient's last visit. The patient has been advised to continue conservative treatment measures. These are to include leg elevation. He is to continue sleeping on a flat mattress at night. His legs are to be elevated to heart level, or higher, even during daytime hours. This is to be implemented as much as possible. The patient has been advised to refrain from prolonged, idle standing and sitting. Activity has been encouraged. Implementation of the calf and foot muscle pumps has been explained. Weight loss is also been recommended. The patient has obtained graduated compression stockings of 20 to 30 mmHg compression. While the patient's willing compliance may be adequate, he does work long hours each day at the local [employer], which results in long hours of lower extremity dependency, thus enhancing venous hypertension. There is continued concern as to the patient's occupation and the demands for prolonged idle sitting, which is thought to be a contributing factor to the patient's lack of progress. He is currently working more than 50 hours/week, 10 hours/day. This has been discussed with the patient repeatedly. It is noted that the patient's lower extremities are swollen and edematous today, suggesting the patient has lapsed somewhat in his level of compliance. In this regard, he has been once again advised to elevate his lower extremities as much as possible, use SurePress wraps on a daily basis, avoid prolonged idle sitting and standing, remain active, etc. He admits to often working up to 82 hours/week. In his own words, the patient admits that his work schedule is excessive. We have obtained approval for the use of the Snap VAC for implementation of negative pressure wound therapy. This was implemented recently. However, we have been using 0.25% Dakin's solution, used to moisten gauze, and applied topically on a daily basis. Thus far, it is proved to be of benefit. Because of the recent improvement, we are now to transition to the use of a Dakin's wash daily, and the application of Promogran topically to the wound each day. The patient is to use a SurePress compression wrap, which he will apply on a daily basis. Approval for the use of EpiFix and PuraPly were sought, but denied by the patient's insurance company several times. The patient is not eligible for any skin graft substitutes, based upon his insurance plan. Once again, we have reinforced the need for compression, elevation, avoidance of prolonged idle sitting, etc. We will continue to monitor the patient's wound serially, and to assess the patient's progress. The patient's wound cultures were positive for Staph aureus and strep species, and the patient has completed a course of Augmentin 875 mg p.o. twice daily for a total of 10 days. Additionally, due to the persisting swelling, edema, and lymphedema in the patient's left lower extremity, as well as venous hypertension, we requested preauthorization for the use of pneumatic mechanical compression pumps to the lower extremities. Prior conservative treatments that have been tried include elevation, exercise, compression wraps, and patient education in lymphedema management. Despite these conservative treatments, the patient continues to present with lymphedema. I feel as though additional care in the form of long-term daily home compression pump therapy is warranted at this time in order to maintain proper management of this chronic condition. I am prescribing Lymphapress pneumatic compression pumps, with bilateral leg sleeves and appropriate number of expanders. This is a chronic condition and the device will be needed indefinitely. The prognosis is good with the use of this compression pump. Other modalities have failed. Therefore the patient appears to meet the medical criteria for the home medical equipment. We continue to await receipt of these pumps. Patient smokes approximately 1/2 pack of cigarettes per day, and has been advised to refrain from his smoking habit. Influenza vaccine was not administered today. Patient stands 5 feet 10 inches tall. He weighs 246 pounds. His BMI is 35.3, which places him in a class II obesity category. Weight loss has been recommended, and collaboration with the patient's primary care physician has been advised. The patient will return in 1 week for reevalu ation. Total time: 28 minutes.
== END 2021-06-02 23:59 ==
LOC: WC 09:00
PROVIDERS: PCP Family Medicine; Referring Provider Surgery; Visit Provider Surgery
DX: I83.222 Varicose veins of left lower extremity with both ulcer of calf and inflammation (principal); L97.222 Non-pressure chronic ulcer of left calf with fat layer exposed; T81.89XA Other complications of procedures, not elsewhere classified, initial encounter; Y83.8 Other surgical procedures as the cause of abnormal reaction of the patient, or of later complication, without mention of misadventure at the time of the procedure; R60.0 Localized edema; F17.210 Nicotine dependence, cigarettes, uncomplicated; Z68.39 Body mass index [BMI] 39.0-39.9, adult; E66.9 Obesity, unspecified; L81.9 Disorder of pigmentation, unspecified; I89.0 Lymphedema, not elsewhere classified
CPT/HCPCS: 11042

== ENCOUNTER 2021-06-30 08:15 | Outpatient (RCR) | payer OTHER, SELFPAY ==
[2021-06-03 00:27] VITALS: BP 143/73; PULSE 82; RESP 16; TEMP 36.3; BMI 35.3
[2021-06-16 08:19] VITALS: BP 141/71; PULSE 87; TEMP 36.6; BMI 35.3
--- NOTE | 2021-06-16 08:47 | PCM.WC.HP ---
History of Present Illness Date of Service: 06/16/21 Chief Complaint: Open wound of the left lateral calf, status-post incision and drainage of abscess History of Wound: This is a 60-year-old male who was admitted to [facility] approximately 1 month prior to presentation with a large abscess on the left lateral calf. On February 11, 2020, he underwent incision and drainage of the abscess. He spent approximately 5 days in the hospital, and was subsequently discharged on Augmentin. The patient claims to sleep on a flat mattress at night. However, he suffers from chronic swelling and edema in both lower extremities. Additionally, he has a history of superficial thrombophlebitis in the left lower extremity, and has undergone a prior left lower extremity vein stripping procedure in the remote past. Patient has developed chronic skin changes in his lower extremities, which include hyperpigmentation and lipodermatosclerosis in the gaiter areas bilaterally. 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 The patient claims to be relatively active. Management the time of presentation included the use of a wet-to-dry gauze packing daily. It is noted that patient underwent a venous duplex examination during his hospitalization recently, that was negative for any evidence of thrombosis, but indicated valvular incompetence of the deep and superficial venous systems bilaterally. [facility] Medical History Chronic venous insufficiency Postphlebitic syndrome with inflammation Home Medications Augmentin 875-125 Tablet 875 mg PO BID 03/18/20 [History Last Taken Unknown] rosuvastatin 20 mg PO DAILY 03/18/20 [History Last Taken Unknown] Social History Smoking Status: Light Smoker (<10/day) Vital Signs Vital Signs Vital Signs: 06/16/21 08:19 Temperature 97.9 F Temperature Source Temporal Pulse Rate 87 Blood Pressure 141/71 H Blood Pressure Mean 94 Blood Pressure Source Monitor Weight Weight: 246 lb Body Mass Index (BMI) 35.3 Physical Exam Const alert, oriented x3, no apparent distress and well nourished General Appearance: cooperative, comfortable and well developed Orientation / Consciousness: awake, oriented to person, oriented to place and oriented to time HEENT normocephalic and head/scalp atraumatic Head and Scalp: normal to inspection, normocephalic and atraumatic External Ear: external ears normal Eyes PERRL and EOMs intact bilaterally General Eye: normal appearance of both eyes Resp normal respiratory effort, normal air movement, no retractions and no use of accessory muscles Effort and Inspection: able to speak in complete sentences Extremity no calf tenderness Extremity Narrative: Slight swelling and edema are noted in the patient's left lower extremity. Multiple, large, prominent varicose veins are noted below the left knee. Hyperpigmentation and lipodermatosclerosis are present. General Extremity: Negative for clubbing or cyanosis Skin Wound Narrative: The wound on the left lateral calf persists. It is smaller in size. Dimensions are documented elsewhere. There is no sign of infection or cellulitis. There is a moderate amount of bioburden. Neuro oriented x3, CN's II-XII intact bilaterally and moves all extremities Sensorium / Orientation: awake, alert, oriented to person, oriented to place and oriented to time Psych Appearance: grossly normal and appropriate Attitude: calm Activity / Motor Behavior: appropriate eye contact Speech: normal speech Mood & Affect: euthymic mood Thought Process: normal thought process Thought Content: normal thought content Attention / Concentration: attention grossly intact Debridement Note Debridement Note Wound debrided: Left lateral calf Laterality: Left Type of Debridement: Excisional debridement Anesthesia Used: 5% Lidocaine Gel Depth: Down to and including healthy tissue and in the subcutaneous layer Percentage of wound debrided: 100 Instrument Used: 5mm curette Tissue Removed: Bioburden Severity: Fat Layer Exposed Amount of bleeding with debridement: Mild Bleeding Controlled with: Compression and gauze Patient tolerated procedure: Patient tolerated procedure well Post-Debridement Measurements and Additional Note: Post-Debridement Measurements/Treatment - Nurse 1 - General Ulcer Assessment Start: 06/16/21 08:17 Freq: Status: Active Protocol: [email or web address].JAMEL Activity Type Activity Date Activity User E-Sign Co-Sign Detail Recorded Client Recorded Date Recorded By Document 06/16/21 08:19 SPENCER [id number] 06/16/21 08:21 SPENCER 06/16/21 08:19 - Today's Visit Information Type of service Follow-up Visit (Physician/HEADWAITRESS ) Arrival Mode Ambulatory Patient Identification Verified (Name & Yes ) Patient Requires Transmission-Based No Precautions Height and Weight Body Mass Index (BMI) 35.3 BMI Classification Obese Vital Signs Temperature (97.8 F-99.1 F) 97.9 F Temperature Source Temporal Pulse Rate (60-100) 87 Pulse Location Monitor Blood Pressure (90/60-120/80) 141/71 H Blood Pressure Mean 94 Source Monitor History Since Last Visit- (Skip if this is Patient's initial visit) Have you changed medications since your No last visit? Any new allergies or adverse reactions No Had a fall/change in ADL's that may No increase risk of falls Signs or symptoms of abuse and/or No neglect since last visit Have you been in the hospital since your No last visit? Has dressing in place as prescribed Yes Has compression in place as prescribed N/A Has offloadiing in place as prescribed N/A Experienced any changes in pain level or No management Left Footwear Regular Shoe Right Footwear Regular Shoe WC - Nurse 1 - General Ulcer Measurement Start: 06/16/21 08:17 Freq: Status: Active Protocol: Activity Type Activity Date Activity User E-Sign Co-Sign Detail Recorded Client Recorded Date Recorded By Document 06/16/21 08:19 SPENCER [id number] 06/16/21 08:21 SPENCER 06/16/21 08:19 Wound Center Nurse 1 #1 Lateral LLE -Combined with other wound No -Current Size (cm) - Length 0.8 -Current Size (cm) - Width 0.8 -Current Size (cm) - Depth 0.1 -Total Square Cm 0.64 -Photo Taken No -Tunneling No -Undermining/Tunneling No -Circular Undermining No -Change in Wound Grade/Stage No -Exudate Amt None Present -Wound Margin Distinct, Outline Attached -Granulation Quality N/A -Slough/Fibrin Yes -Necrosis Amt Medium (34-66%) -Necrotic Tissue Type Eschar -Structure Exposed N/A -Texture (Lois-wound Skin Appearance) No Abnormality, Assessed -Moisture (Lois-wound Skin Appearance) No Abnormality, Assessed -Color (Lois-wound Skin Appearance) No Abnormality, Assessed -Temperature (Lois-wound Skin No Abnormality Appearance) (Pt Warm) -Tenderness on Palpation (Lois-wound No Skin Appearance) -Ulcer Cleansing Rinsed/ Irrigated with Saline -Foul Odor after Cleansing No -Anesthetic Used 5% Lidocaine Gel WC - Nurse 2 - General Ulcer CM Notes Start: 06/16/21 08:17 Freq: Status: Active Protocol: Activity Type Activity Date Activity User E-Sign Co-Sign Detail Recorded Client Recorded Date Recorded By Document 06/16/21 08:32 PL [id number] 06/16/21 08:34 PL 06/16/21 08:32 Wound Center Nurse 2 -Time 08:15 -Correct Patient Yes -Correct Side, Site, Position Yes -Correct Procedure Yes -Procedure Performed Yes -Type of Procedure Debridement -Clinical Debridement Subcutaneous -Tissue Removed Subcutaneous -Post Debridement (cm) - Length 0.8 -Post Debridement (cm) - Width 0.8 -Post Debridement (cm) - Depth 0.1 -Total Square (Post) (cm) 0.64 -Area of Debridement (cm) - Length 0.8 -Area of Debridement (cm) - Width 0.8 -Total Square (Area) (cm) 0.64 -Tunneling No -Undermining/Tunneling No -Circular Undermining No -Wound/Ulcer Outcome Not Healed -Ulcer Cleansing Rinsed/ Irrigated with Saline -Foul Odor after Cleansing No -Bioengineered Tissue No -Bleeding Controlled with Pressure -Treatment Response Procedure Tolerated Well -Debridement - Subq, 1st 20sq cm Yes WC - Nurse 3 - General Ulcer D/C NN Start: 06/16/21 08:17 Freq: Status: Active Protocol: Activity Type Activity Date Activity User E-Sign Co-Sign Detail Recorded Client Recorded Date Recorded By Document 06/16/21 08:33 KR [id number] 06/16/21 08:34 MAYTE 06/16/21 08:33 Wound Care Nurse 3 -Primary Dressing Covered/Secured with Dry Gauze Left -Compression Wrap Surepress ($) Pain Scale: 0-10 Numeric Is Patient Pain Free? 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: CODE(S): I83.229 - Varicose veins of left lower extremity with both ulcer of unspecified site and inflammation; L97.929 - Non-pressure chronic ulcer of unspecified part of left lower leg with unspecified severity (2) Chronic venous insufficiency: CODE(S): I87.2 - Venous insufficiency (chronic) (peripheral) (3) Postphlebitic syndrome with inflammation: CODE(S): I87.029 - Postthrombotic syndrome with inflammation of unspecified lower extremity (4) Leg swelling: CODE(S): M79.89 - Other specified soft tissue disorders (5) Leg edema: CODE(S): R60.0 - Localized edema (6) Abscess of left leg: CODE(S): L02.416 - Cutaneous abscess of left lower limb (7) Surgical wound present: CODE(S): T14.8XXA - Other injury of unspecified body region, initial encounter (8) Chronic venous insufficiency: CODE(S): I87.2 - Venous insufficiency (chronic) (peripheral) (9) Post-phlebitic dermatosis of both lower extremities: CODE(S): I87.093 - Postthrombotic syndrome with other complications of bilateral lower extremity (10) Hyperpigmentation of skin: CODE(S): L81.9 - Disorder of pigmentation, unspecified (11) Lipodermatosclerosis of both lower extremities: CODE(S): I83.11 - Varicose veins of right lower extremity with inflammation; I83.12 - Varicose veins of left lower extremity with inflammation (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: (13) Wound of left leg: CODE(S): S81.802A - Unspecified open wound, left lower leg, initial encounter QUALIFIERS: Encounter type: subsequent encounter Qualified Code(s): S81.802D - Unspecified open wound, left lower leg, subsequent encounter (14) Obesity (BMI 35.0-39.9 without comorbidity): CODE(S): E66.9 - Obesity, unspecified (15) Personal history of thrombophlebitis: CODE(S): Z86.72 - Personal history of thrombophlebitis (16) Tobacco abuse: CODE(S): Z72.0 - Tobacco use (17) Tobacco abuse counseling: CODE(S): Z71.6 - Tobacco abuse counseling (18) Lymphedema of left leg: CODE(S): I89.0 - Lymphedema, not elsewhere classified PLAN: There appears to be an improvement since the patient's last visit. The patient has been advised to continue conservative treatment measures. These are to include leg elevation. He is to continue sleeping on a flat mattress at night. His legs are to be elevated to heart level, or higher, even during daytime hours. This is to be implemented as much as possible. The patient has been advised to refrain from prolonged, idle standing and sitting. Activity has been encouraged. Implementation of the calf and foot muscle pumps has been explained. Weight loss is also been recommended. The patient has obtained graduated compression stockings of 20 to 30 mmHg compression. While the patient's willing compliance may be adequate, he does work long hours each day at the local [employer], which results in long hours of lower extremity dependency, thus enhancing venous hypertension. There is continued concern as to the patient's occupation and the demands for prolonged idle sitting, which is thought to be a contributing factor to the patient's lack of progress. He is currently working more than 50 hours/week, 10 hours/day. This has been discussed with the patient repeatedly. It is noted that the patient's lower extremities are swollen and edematous today, suggesting the patient has lapsed somewhat in his level of compliance. In this regard, he has been once again advised to elevate his lower extremities as much as possible, use SurePress wraps on a daily basis, avoid prolonged idle sitting and standing, remain active, etc. He admits to often working up to 82 hours/week. In his own words, the patient admits that his work schedule is excessive. We have obtained approval for the use of the Snap VAC for implementation of negative pressure wound therapy. This was implemented recently. However, we have been using 0.25% Dakin's solution, used to moisten gauze, and applied topically on a daily basis. Thus far, it is proved to be of benefit. Because of the recent improvement, we are now to transition to the use of a Dakin's wash daily, and the application of Promogran topically to the wound each day. The patient is to use a SurePress compression wrap, which he will apply on a daily basis. Approval for the use of EpiFix and PuraPly were sought, but denied by the patient's insurance company several times. The patient is not eligible for any skin graft substitutes, based upon his insurance plan. Once again, we have reinforced the need for compression, elevation, avoidance of prolonged idle sitting, etc. We will continue to monitor the patient's wound serially, and to assess the patient's progress. The patient's wound cultures were positive for Staph aureus and strep species, and the patient has completed a course of Augmentin 875 mg p.o. twice daily for a total of 10 days. Additionally, due to the persisting swelling, edema, and lymphedema in the patient's left lower extremity, as well as venous hypertension, we requested preauthorization for the use of pneumatic mechanical compression pumps to the lower extremities. Prior conservative treatments that have been tried include elevation, exercise, compression wraps, and patient education in lymphedema management. Despite these conservative treatments, the patient continues to present with lymphedema. I feel as though additional care in the form of long-term daily home compression pump therapy is warranted at this time in order to maintain proper management of this chronic condition. I am prescribing Lymphapress pneumatic compression pumps, with bilateral leg sleeves and appropriate number of expanders. This is a chronic condition and the device will be needed indefinitely. The prognosis is good with the use of this compression pump. Other modalities have failed. Therefore the patient appears to meet the medical criteria for the home medical equipment. We continue to await receipt of these pumps. Patient smokes approximately 1/2 pack of cigarettes per day, and has been advised to refrain from his smoking habit. Influenza vaccine was not administered today. Patient stands 5 feet 10 inches tall. He weighs 246 pounds. His BMI is 35.3, which places him in a class II obesity category. Weight loss has been recommended, and collaboration with the patient's primary care physician has been advised. The patient will return in 1 week for reevaluation. Total time: 29 minutes.
[2021-06-23 08:18] VITALS: BP 163/73; PULSE 68; TEMP 36.1; BMI 35.3
--- NOTE | 2021-06-23 08:35 | HP.PCM_ITS ---
History of Present Illness Date of Service: 06/23/21 Chief Complaint: Open wound of the left lateral calf, status-post incision and drainage of abscess History of Wound: This is a 60-year-old male who was admitted to [facility] approximately 1 month prior to presentation with a large a bscess on the left lateral calf. On February 11, 2020, he underwent incision and drainage of the abscess. He spent approximately 5 days in the hospital, and was subsequently discharged on Augmentin. The patient claims to sleep on a flat mattress at night. However, he suffers from chronic swelling and edema in both lower extremities. Additionally, he has a history of superficial thrombophlebitis in the left lower extremity, and has undergone a prior left lower extremity vein stripping procedure in the remote past. Patient has developed chronic skin changes in his lower extremities, which include hyperpigmentation and lipodermatosclerosis in the gaiter areas bilaterally. 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 The patient claims to be relatively active. Management the time of presentation included the use of a wet-to-dry gauze packing daily. It is noted that patient underwent a venous duplex examination during his hospitalization recently, that was negative for any evidence of thrombosis, but indicated valvular incompetence of the deep and superficial venous systems bilaterally. [facility] Medical History Chronic venous insufficiency Postphlebitic syndrome with inflammation Home Medications Augmentin 875-125 Tablet 875 mg PO BID 03/18/20 [History Last Taken Unknown] rosuvastatin 20 mg PO DAILY 03/18/20 [History Last Taken Unknown] Social History Smoking Status: Light Smoker (<10/day) Vital Signs Vital Signs Vital Signs: 06/23/21 08:18 Temperature 97.0 F L Temperature Source Oral Pulse Rate 68 Blood Pressure 163/73 H Blood Pressure Mean 103 Blood Pressure Source Monitor Blood Pressure Position Semi-Fowlers Blood Pressure Location Right Arm Weight Weight: 246 lb Body Mass Index (BMI) 35.3 Physical Exam Const alert, oriented x3, no apparent distress and well nourished General Appearance: cooperative and well developed Orientation / Consciousness: awake, oriented to person, oriented to place and oriented to time HEENT normocephalic and head/scalp atraumatic Head and Scalp: normal to inspection, normocephalic and atraumatic External Ear: external ears normal Eyes PERRL and EOMs intact bilaterally General Eye: normal appearance of both eyes Resp normal respiratory effort, normal air movement, no retractions and no use of accessory muscles Effort and Inspection: able to speak in complete sentences Extremity no calf tenderness Extremity Narrative: Chronic hyperpigmentation and lipodermatosclerosis persist in the patient's distal left lower extremity. Multiple large bulging varicosities also remain. General Extremity: Negative for clubbing or cyanosis Skin Wound Narrative: The ulceration on the left lateral calf persists. It is little change in size or appearance. There is no sign of infection or cellulitis. There is a moderate amount of bioburden. Dimensions are documented elsewhere. Neuro oriented x3 and CN's II-XII intact bilaterally Sensorium / Orientation: awake, alert, oriented to person, oriented to place and oriented to time Psych Appearance: grossly normal and appropriate Attitude: calm Activity / Motor Behavior: appropriate eye contact Speech: normal speech Mood & Affect: euthymic mood Thought Process: normal thought process Thought Content: normal thought content Attention / Concentration: attention grossly intact Debridement Note Debridement Note Wound debrided: Left lateral calf Laterality: Left Type of Debridement: Excisional debridement Anesthesia Used: 5% Lidocaine Gel Depth: Down to and including healthy tissue and in the subcutaneous layer Percentage of wound debrided: 100 Instrument Used: 5mm curette Tissue Removed: Bioburden Severity: Fat Layer Exposed Amount of bleeding with debridement: Mild Bleeding Controlled with: Compression and gauze Patient tolerated procedure: Patient tolerated procedure well Post-Debridement Measurements and Additional Note: Post-Debridement Measurements/Treatment - Nurse 1 - General Ulcer Assessment Start: 06/16/21 08:17 Freq: Status: Active Protocol: DIGNA Activity Type Activity Date Activity User E-Sign Co-Sign Detail Recorded Client Recorded Date Recorded By Document 06/16/21 08:19 AK [id number] 06/16/21 08:21 AK Document 06/23/21 08:18 MAYTE [id number] 06/23/21 08:19 MAYTE 06/16/21 06/23/21 08:19 08:18 - Today's Visit Information Type of service Follow-up Visit Follow-up Visit (Physician/NET DEVELOPER CONTRACT (Physician/NET DEVELOPER CONTRACT ) ) Arrival Mode Ambulatory Ambulatory Patient Identification Verified (Name & Yes Yes ) Patient Requires Transmission-Based No Precautions Height and Weight Body Mass Index (BMI) 35.3 35.3 BMI Classification Obese Obese Vital Signs Temperature (97.8 F-99.1 F) 97.9 F 97.0 F L Temperature Source Temporal Oral Pulse Rate (60-100) 87 68 Pulse Location Monitor Monitor Blood Pressure (90/60-120/80) 141/71 H 163/73 H Blood Pressure Mean 94 103 Source Monitor Monitor Position Semi-Fowlers Blood Pressure Location Right Arm History Since Last Visit- (Skip if this is Patient's initial visit) Have you changed medications since your No No last visit? Any new allergies or adverse reactions No No Had a fall/change in ADL's that may No No increase risk of falls Signs or symptoms of abuse and/or No No neglect since last visit Have you been in the hospital since your No No last visit? Has dressing in place as prescribed Yes Yes Has compression in place as prescribed N/A N/A Has offloadiing in place as prescribed N/A N/A Experienced any changes in pain level or No No management Left Footwear Regular Shoe Regular Shoe Right Footwear Regular Shoe Regular Shoe Pain Scale: 0-10 Numeric Is Patient Pain Free? Yes WC - Nurse 1 - General Ulcer Measurement Start: 06/16/21 08:17 Freq: Status: Active Protocol: Activity Type Activity Date Activity User E-Sign Co-Sign Detail Recorded Client Recorded Date Recorded By Document 06/16/21 08:19 AK [id number] 06/16/21 08:21 AK Document 06/23/21 08:18 MAYTE [id number] 06/23/21 08:19 KR 06/16/21 06/23/21 08:19 08:18 Wound Center Nurse 1 #1 Lateral LLE -Combined with other wound No -Current Size (cm) - Length 0.8 0.5 -Current Size (cm) - Width 0.8 0.6 -Current Size (cm) - Depth 0.1 0.1 -Total Square Cm 0.64 0.30 -Photo Taken No -Tunneling No -Undermining/Tunneling No -Circular Undermining No -Change in Wound Grade/Stage No -Exudate Amt None Present Small -Exudate Type Serosanguineous -Wound Margin Distinct, Distinct, Outline Outline Attached Attached -Granulation Amt Small (1-33%) -Granulation Quality N/A [place] -Slough/Fibrin Yes -Necrosis Amt Medium (34-66%) Small (1-33%) -Necrotic Tissue Type Eschar Adherent Slough -Structure Exposed N/A -Texture (Lois-wound Skin Appearance) No Abnormality, Assessed, Assessed Scarring -Moisture (Lois-wound Skin Appearance) No Abnormality, Assessed,Dry/ Assessed Scaly -Color (Lois-wound Skin Appearance) No Abnormality, No Abnormality, Assessed Assessed -Temperature (Lois-wound Skin No Abnormality No Abnormality Appearance) (Pt Warm) (Pt Warm) -Tenderness on Palpation (Lois-wound No No Skin Appearance) -Ulcer Cleansing Rinsed/ Rinsed/ Irrigated with Irrigated with Saline Saline -Foul Odor after Cleansing No No -Anesthetic Used 5% Lidocaine 5% Lidocaine Gel Gel WC - Nurse 2 - General Ulcer CM Notes Start: 06/16/21 08:17 Freq: Status: Active Protocol: Activity Type Activity Date Activity User E-Sign Co-Sign Detail Recorded Client Recorded Date Recorded By Document 06/16/21 08:32 PL [id number] 06/16/21 08:34 PL 06/16/21 08:32 Wound Center Nurse 2 -Time 08:15 -Correct Patient Yes -Correct Side, Site, Position Yes -Correct Procedure Yes -Procedure Performed Yes -Type of Procedure Debridement -Clinical Debridement Subcutaneous -Tissue Removed Subcutaneous -Post Debridement (cm) - Length 0.8 -Post Debridement (cm) - Width 0.8 -Post Debridement (cm) - Depth 0.1 -Total Square (Post) (cm) 0.64 -Area of Debridement (cm) - Length 0.8 -Area of Debridement (cm) - Width 0.8 -Total Square (Area) (cm) 0.64 -Tunneling No -Undermining/Tunneling No -Circular Undermining No -Wound/Ulcer Outcome Not Healed -Ulcer Cleansing Rinsed/ Irrigated with Saline -Foul Odor after Cleansing No -Bioengineered Tissue No -Bleeding Controlled with Pressure -Treatment Response Procedure Tolerated Well -Debridement - Subq, 1st 20sq cm Yes WC - Nurse 3 - General Ulcer D/C NN Start: 06/16/21 08:17 Freq: Status: Active Protocol: Activity Type Activity Date Activity User E-Sign Co-Sign Detail Recorded Client Recorded Date Recorded By Document 06/16/21 08:33 MAYTE [id number] 06/16/21 08:34 MAYTE 06/16/21 08:33 Wound Care Nurse 3 -Primary Dressing Covered/Secured with Dry Gauze Left -Compression Wrap Surepress ($) Pain Scale: 0-10 Numeric Is Patient Pain Free? 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: CODE(S): I83.229 - Varicose veins of left lower extremity with both ulcer of unspecified site and inflammation; L97.929 - Non-pressure chronic ulcer of unspecified part of left lower leg with unspecified severity (2) Chronic venous insufficiency: CODE(S): I87.2 - Venous insufficiency (chronic) (peripheral) (3) Postphlebitic syndrome with inflammation: CODE(S): I87.029 - Postthrombotic syndrome with inflammation of unspecified lower extremity (4) Leg swelling: CODE(S): M79.89 - Other specified soft tissue disorders (5) Leg edema: CODE(S): R60.0 - Localized edema (6) Abscess of left leg: CODE(S): L02.416 - Cutaneous abscess of left lower limb (7) Surgical wound present: CODE(S): T14.8XXA - Other injury of unspecified body region, initial encounter (8) Chronic venous insufficiency: CODE(S): I87.2 - Venous insufficiency (chronic) (peripheral) (9) Post-phlebitic dermatosis of both lower extremities: CODE(S): I87.093 - Postthrombotic syndrome with other complications of bilateral lower extremity (10) Hyperpigmentation of skin: CODE(S): L81.9 - Disorder of pigmentation, unspecified (11) Lipodermatosclerosis of both lower extremities: CODE(S): I83.11 - Varicose veins of right lower extremity with inflamm ation; I83.12 - Varicose veins of left lower extremity with inflammation (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: (13) Wound of left leg: CODE(S): S81.802A - Unspecified open wound, left lower leg, initial encounter QUALIFIERS: Encounter type: subsequent encounter Qualified Code(s): S81.802D - Unspecified open wound, left lower leg, subsequent encounter (14) Obesity (BMI 35.0-39.9 without comorbidity): CODE(S): E66.9 - Obesity, unspecified (15) Personal history of thrombophlebitis: CODE(S): Z86.72 - Personal history of thrombophlebitis (16) Tobacco abuse: CODE(S): Z72.0 - Tobacco use (17) Tobacco abuse counseling: CODE(S): Z71.6 - Tobacco abuse counseling (18) Lymphedema of left leg: CODE(S): I89.0 - Lymphedema, not elsewhere classified PLAN: There appears to be an improvement since the patient's last visit. The patient has been advised to continue conservative treatment measures. These are to include leg elevation. He is to continue sleeping on a flat mattress at night. His legs are to be elevated to heart level, or higher, even during daytime hours. This is to be implemented as much as possible. The patient has been advised to refrain from prolonged, idle standing and sitting. Activity has been encouraged. Implementation of the calf and foot muscle pumps has been explained. Weight loss is also been recommended. The patient has obtained graduated compression stockings of 20 to 30 mmHg compression. While the patient's willing compliance may be adequate, he does work long hours each day at the local [employer], which results in long hours of lower extremity dependency, thus enhancing venous hypertension. There is continued concern as to the patient's occupation and the demands for prolonged idle sitting, which is thought to be a contributing factor to the patient's lack of progress. He is currently working more than 50 hours/week, 10 hours/day. This has been discussed with the patient repeatedly. It is noted that the patient's lower extremities are swollen and edematous today, suggesting the patient has lapsed somewhat in his level of compliance. In this regard, he has been once again advised to elevate his lower extremities as much as possible, use SurePress wraps on a daily basis, avoid prolonged idle sitting and standing, remain active, etc. He admits to often working up to 82 hours/week. In his own words, the patient admits that his work schedule is excessive. We have obtained approval for the use of the [facility] VAC for implementation of negative pressure wound therapy. This was implemented recently. However, we have been using 0.25% Dakin's solution, used to moisten gauze, and applied topically on a daily basis. Thus far, it is proved to be of benefit. Because of the recent improvement, we are now to transition to the use of a Dakin's wash daily, and the application of Promogran topically to the wound each day. The patient is to use a SurePress compression wrap, which he will apply on a daily basis. Appr oval for the use of EpiFix and PuraPly were sought, but denied by the patient's insurance company several times. The patient is not eligible for any skin graft substitutes, based upon his insurance plan. Once again, we have reinforced the need for compression, elevation, avoidance of prolonged idle sitting, etc. We will continue to monitor the patient's wound serially, and to assess the patient's progress. The patient's wound cultures were positive for Staph aureus and strep species, and the patient has completed a course of Augmentin 875 mg p.o. twice daily for a total of 10 days. Additionally, due to the persisting swelling, edema, and lymphedema in the patient's left lower extremity, as well as venous hypertension, we requested preauthorization for the use of pneumatic mechanical compression pumps to the lower extremities. Prior conservative treatments that have been tried include elevation, exercise, compression wraps, and patient education in lymphedema management. Despite these conservative treatments, the patient continues to present with lymphedema. I feel as though additional care in the form of long-term daily home compression pump therapy is warranted at this time in order to maintain proper management of this chronic condition. I am prescribing Lymphapress pneumatic compression pumps, with bilateral leg sleeves and appropriate number of expanders. This is a chronic condition and the device will be needed indefinitely. The prognosis is good with the use of this compression pump. Other modalities have failed. Therefore the patient appears to meet the medical criteria for the home medical equipment. We continue to await receipt of these pumps. Patient smokes approximately 1/2 pack of cigarettes per day, and has been advised to refrain from his smoking habit. Influenza vaccine was not administered today. Patient stands 5 feet 10 inches tall. He weighs 246 pounds. His BMI is 35.3, which places him in a class II obesity category. Weight loss has been recommended, and collaboration with the patient's primary care physician has been advised. The patient will return in 1 week for reevaluation. Total time: 28 minutes.
[2021-06-30 08:18] VITALS: BP 158/94; PULSE 74; TEMP 36.1; BMI 35.3
--- NOTE | 2021-06-30 08:58 | PCM.WC.HP ---
History of Present Illness Date of Service: 06/30/21 Chief Complaint: Open wound of the left lateral calf, status-post incision and drainage of abscess History of Wound: This is a 61-year-old male who was admitted to [facility] approximately 1 month prior to presentation with a large abscess on the left lateral calf. On February 11, 2020, he underwent incision and drainage of the abscess. He spent approximately 5 days in the hospital, and was subsequently discharged on Augmentin. The patient claims to sleep on a flat mattress at night. However, he suffers from chronic swelling and edema in both lower extremities. Additionally, he has a history of superficial thrombophlebitis in the left lower extremity, and has undergone a prior left lower extremity vein stripping procedure in the remote past. Patient has developed chronic skin changes in his lower extremities, which include hyperpigmentation and lipodermatosclerosis in the gaiter areas bilaterally. 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 The patient claims to be relatively active. Management the time of presentation included the use of a wet-to-dry gauze packing daily. It is noted that patient underwent a venous duplex examination during his hospitalization recently, that was negative for any evidence of thrombosis, but indicated valvular incompetence of the deep and superficial venous systems bilaterally. [facility] Medical History Chronic venous insufficiency Postphlebitic syndrome with inflammation Home Medications Augmentin 875-125 Tablet 875 mg PO BID 03/18/20 [History Last Taken Unknown] rosuvastatin 20 mg PO DAILY 03/18/20 [History Last Taken Unknown] Social History Smoking Status: Light Smoker (<10/day) Vital Signs Vital Signs Vital Signs: 06/30/21 08:18 Temperature 96.9 F L Temperature Source Oral Pulse Rate 74 Blood Pressure 158/94 H Blood Pressure Mean 115 Blood Pressure Source Monitor Blood Pressure Position Semi-Fowlers Blood Pressure Location Left Arm Weight Weight: 246 lb Body Mass Index (BMI) 35.3 Physical Exam Const alert, oriented x3, no apparent distress and well nourished General Appearance: cooperative, comfortable and well developed Orientation / Consciousness: awake, oriented to person, oriented to place and oriented to time HEENT normocephalic and head/scalp atraumatic Head and Scalp: normal to inspection, normocephalic and atraumatic External Ear: external ears normal Eyes PERRL and EOMs intact bilaterally General Eye: normal appearance of both eyes Resp normal respiratory effort, normal air movement, no retractions and no use of accessory muscles Effort and Inspection: able to speak in complete sentences Extremity no calf tenderness Extremity Narrative: Chronic skin changes persist on the patient's left lower extremity, in the gaiter area. These include hyperpigmentation and lipodermatosclerosis. Multiple large varicose veins are also noted. General Extremity: Negative for clubbing or cyanosis Skin Wound Narrative: The ulceration on the left lateral calf persists. It is slightly smaller in size. Dimensions are documented elsewhere. There is no sign of infection or cellulitis. There is a moderate amount of bioburden. Neuro oriented x3, CN's II-XII intact bilaterally and moves all extremities Sensorium / Orientation: awake, alert, oriented to person, oriented to place and oriented to time Psych Appearance: grossly normal and appropriate Attitude: calm Activity / Motor Behavior: appropriate eye contact Speech: normal speech Mood & Affect: euthymic mood Thought Process: normal thought process Thought Content: normal thought content Attention / Concentration: attention grossly intact Debridement Note Debridement Note Wound debrided: Left lateral calf Laterality: Left Type of Debridement: Excisional debridement Anesthesia Used: 5% Lidocaine Gel Depth: Down to and including healthy tissue and in the subcutaneous layer Percentage of wound debrided: 100 Instrument Used: 5mm curette Tissue Removed: Bioburden Severity: Fat Layer Exposed Amount of bleeding with debridement: Mild Bleeding Controlled with: Compression and gauze Patient tolerated procedure: Patient tolerated procedure well Post-Debridement Measurements and Additional Note: Post-Debridement Measurements/Treatment KISHA - Nurse 1 - General Ulcer Assessment Start: 06/16/21 08:17 Freq: Status: Active Protocol: DIGNA Activity Type Activity Date Activity User E-Sign Co-Sign Detail Recorded Client Recorded Date Recorded By Document 06/16/21 08:19 AK [id number] 06/16/21 08:21 AK Document 06/23/21 08:18 KR [id number] 06/23/21 08:19 KR Document 06/30/21 08:18 KR [id number] 06/30/21 08:20 KR 0906/23/21 06/30/21 08:19 08:18 08:18 WC - Today's Visit Information Type of service Follow-up Visit Follow-up Visit Initial Visit (Physician/ANATOMY AND PHYSIOLOGY INSTRUCTOR (Physician/ANATOMY AND PHYSIOLOGY INSTRUCTOR ) ) Arrival Mode Ambulatory Ambulatory Ambulatory Patient Identification Verified (Name & Yes Yes Yes ) Patient Requires Transmission-Based No Precautions Height and Weight Body Mass Index (BMI) 35.3 35.3 35.3 BMI Classification Obese Obese Obese Vital Signs Temperature (97.8 F-99.1 F) 97.9 F 97.0 F L 96.9 F L Temperature Source Temporal Oral Oral Pulse Rate (60-100) 87 68 74 Pulse Location Monitor Monitor Monitor Blood Pressure (90/60-120/80) 141/71 H 163/73 H 158/94 H Blood Pressure Mean 94 103 115 Source Monitor Monitor Monitor Position Semi-Fowlers Semi-Fowlers Blood Pressure Location Right Arm Left Arm History Since Last Visit- (Skip if this is Patient's initial visit) Have you changed medications since your No No No last visit? Any new allergies or adverse reactions No No No Had a fall/change in ADL's that may No No No increase risk of falls Signs or symptoms of abuse and/or No No No neglect since last visit Have you been in the hospital since your No No No last visit? Has dressing in place as prescribed Yes Yes Yes Has compression in place as prescribed N/A N/A N/A Has offloadiing in place as prescribed N/A N/A N/A Experienced any changes in pain level or No No No management Left Footwear Regular Shoe Regular Shoe Regular Shoe Right Footwear Regular Shoe Regular Shoe Regular Shoe Pain Scale: 0-10 Numeric Is Patient Pain Free? Yes Yes WC - Nurse 1 - General Ulcer Measurement Start: 06/16/21 08:17 Freq: Status: Active Protocol: Activity Type Activity Date Activity User E-Sign Co-Sign Detail Recorded Client Recorded Date Recorded By Document 06/16/21 08:19 AK [id number] 06/16/21 08:21 AK Document 06/23/21 08:18 KR [id number] 06/23/21 08:19 KR Document 06/30/21 08:18 KR [id number] 06/30/21 08:20 KR 06/16/21 06/23/21 06/30/21 08:19 08:18 08:18 Wound Center Nurse 1 #1 Lateral LLE -Combined with other wound No -Current Size (cm) - Length 0.8 0.5 0.5 -Current Size (cm) - Width 0.8 0.6 0.5 -Current Size (cm) - Depth 0.1 0.1 0.2 -Total Square Cm 0.64 0.30 0.25 -Photo Taken No -Tunneling No -Undermining/Tunneling No -Circular Undermining No -Change in Wound Grade/Stage No -Exudate Amt None Present Small Small -Exudate Type Serosanguineous Serosanguineous -Wound Margin Distinct, Distinct, Distinct, Outline Outline Outline Attached Attached Attached -Granulation Amt Small (1-33%) Small (1-33%) -Granulation Quality N/A Kermit Kermit -Slough/Fibrin Yes -Necrosis Amt Medium (34-66%) Small (1-33%) Small (1-33%) -Necrotic Tissue Type Eschar Adherent Slough Adherent Slough -Structure Exposed N/A -Texture (Lois-wound Skin Appearance) No Abnormality, Assessed, Assessed, Assessed Scarring Scarring -Moisture (Lois-wound Skin Appearance) No Abnormality, Assessed,Dry/ Assessed,Dry/ Assessed Scaly Scaly -Color (Lois-wound Skin Appearance) No Abnormality, No Abnormality, No Abnormality, Assessed Assessed Assessed -Temperature (Lois-wound Skin No Abnormality No Abnormality No Abnormality Appearance) (Pt Warm) (Pt Warm) (Pt Warm) -Tenderness on Palpation (Lois-wound No No No Skin Appearance) -Ulcer Cleansing Rinsed/ Rinsed/ Rinsed/ Irrigated with Irrigated with Irrigated with Saline Saline Saline -Foul Odor after Cleansing No No No -Anesthetic Used 5% Lidocaine 5% Lidocaine 5% Lidocaine Gel Gel Gel WC - Nurse 2 - General Ulcer CM Notes Start: 06/16/21 08:17 Freq: Status: Active Protocol: Activity Type Activity Date Activity User E-Sign Co-Sign Detail Recorded Client Recorded Date Recorded By Document 06/16/21 08:32 PL [id number] 06/16/21 08:34 PL Document 06/23/21 11:43 PL [id number] 06/23/21 11:43 PL Document 06/30/21 08:45 PL [id number] 06/30/21 08:46 PL 0906/23/21 06/30/21 08:32 11:43 08:45 Wound Center Nurse 2 -Time 08:15 08:23 08:27 -Correct Patient Yes Yes Yes -Correct Side, Site, Position Yes Yes Yes -Correct Procedure Yes Yes Yes -Procedure Performed Yes Yes -Type of Procedure Debridement Debridement -Clinical Debridement Subcutaneous Subcutaneous Subcutaneous -Tissue Removed Subcutaneous Subcutaneous Subcutaneous -Post Debridement (cm) - Length 0.8 0.6 0.5 -Post Debridement (cm) - Width 0.8 0.6 0.5 -Post Debridement (cm) - Depth 0.1 0.1 0.1 -Total Square (Post) (cm) 0.64 0.36 0.25 -Area of Debridement (cm) - Length 0.8 0.6 0.5 -Area of Debridement (cm) - Width 0.8 0.6 0.5 -Total Square (Area) (cm) 0.64 0.36 0.25 -Tunneling No No No -Undermining/Tunneling No No No -Circular Undermining No No No -Wound/Ulcer Outcome Not Healed Not Healed Not Healed -Ulcer Cleansing Rinsed/ Rinsed/ Rinsed/ Irrigated with Irrigated with Irrigated with Saline Saline Saline -Foul Odor after Cleansing No No No -Bioengineered Tissue No No No -Bleeding Controlled with Pressure -Treatment Response Procedure Tolerated Well -Debridement - Subq, 1st 20sq cm Yes Yes Yes - Nurse 3 - General Ulcer D/C NN Start: 06/16/21 08:17 Freq: Status: Active Protocol: Activity Type Activity Date Activity User E-Sign Co-Sign Detail Recorded Client Recorded Date Recorded By Document 06/16/21 08:33 KR [id number] 06/16/21 08:34 KR Document 06/23/21 08:37 KR [id number] 06/23/21 08:38 KR Document 06/30/21 08:47 AK [id number] 06/30/21 08:50 AK 06/16/21 06/23/21 06/30/21 08:33 08:37 08:47 Wound Care Nurse 3 #1 Lateral LLE -Ulcer Cleansing Rinsed/ Irrigated with Saline -Foul Odor after Cleansing No -Negative Pressure Wound Therapy N/A -Primary Dressing Applied Promogran Promogran -Primary Dressing Covered/Secured with Dry Gauze Dry Gauze,Dry Dry Gauze & Gauze & Roll Roll Gauze, Gauze,Secured Secured with with Tape Tape -Other Covering Sm. chema wrap -Promogran 1 0 Left -Lotion applied to leg before No compression wrap -Compression Wrap Surepress ($) Surepress ($) Pain Scale: 0-10 Numeric Is Patient Pain Free? 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: CODE(S): I83.229 - Varicose veins of left lower extremity with both ulcer of unspecified site and inflammation; L97.929 - Non-pressure chronic ulcer of unspecified part of left lower leg with unspecified severity (2) Chronic venous insufficiency: CODE(S): I87.2 - Venous insufficiency (chronic) (peripheral) (3) Postphlebitic syndrome with inflammation: CODE(S): I87.029 - Postthrombotic syndrome with inflammation of unspecified lower extremity (4) Leg swelling: CODE(S): M79.89 - Other specified soft tissue disorders (5) Leg edema: CODE(S): R60.0 - Localized edema (6) Abscess of left leg: CODE(S): L02.416 - Cutaneous abscess of left lower limb (7) Surgical wound present: CODE(S): T14.8XXA - Other injury of unspecified body region, initial encounter (8) Chronic venous insufficiency: CODE(S): I87.2 - Venous insufficiency (chronic) (peripheral) (9) Post-phlebitic dermatosis of both lower extremities: CODE(S): I87.093 - Postthrombotic syndrome with other complications of bilateral lower extremity (10) Hyperpigmentation of skin: CODE(S): L81.9 - Disorder of pigmentation, unspecified (11) Lipodermatosclerosis of both lower extremities: CODE(S): I83.11 - Varicose veins of right lower extremity with inflammation; I83.12 - Varicose veins of left lower extremity with inflammation (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: (13) Wound of left leg: CODE(S): S81.802A - Unspecified open wound, left lower leg, initial encounter QUALIFIERS: Encounter type: subsequent encounter Qualified Code(s): S81.802D - Unspecified open wound, left lower leg, subsequent encounter (14) Obesity (BMI 35.0-39.9 without comorbidity): CODE(S): E66.9 - Obesity, unspecified (15) Personal history of thrombophlebitis: CODE(S): Z86.72 - Personal history of thrombophlebitis (16) Tobacco abuse: CODE(S): Z72.0 - Tobacco use (17) Tobacco abuse counseling: CODE(S): Z71.6 - Tobacco abuse counseling (18) Lymphedema of left leg: CODE(S): I89.0 - Lymphedema, not elsewhere classified PLAN: There appears to be an improvement since the patient's last visit. The patient has been advised to continue conservative treatment measures. These are to include leg elevation. He is to continue sleeping on a flat mattress at night. His legs are to be elevated to heart level, or higher, even during daytime hours. This is to be implemented as much as possible. The patient has been advised to refrain from prolonged, idle standing and sitting. Activity has been encouraged. Implementation of the calf and foot muscle pumps has been explained. Weight loss is also been recommended. The patient has obtained graduated compression stockings of 20 to 30 mmHg compression. While the patient's willing compliance may be adequate, he does work long hours each day at the local [employer], which results in long hours of lower extremity dependency, thus enhancing venous hypertension. There is continued concern as to the patient's occupation and the demands for prolonged idle sitting, which is thought to be a contributing factor to the patient's lack of progress. He is currently working more than 50 hours/week, 10 hours/day. This has been discussed with the patient repeatedly. It is noted that the patient's lower extremities are swollen and edematous today, suggesting the patient has lapsed somewhat in his level of compliance. In this regard, he has been once again advised to elevate his lower extremities as much as possible, use SurePress wraps on a daily basis, avoid prolonged idle sitting and standing, remain active, etc. He admits to often working up to 82 hours/week, which is excessive, and contrary to the need for increasing elevation of the patient's lower extremities. We are to continue the use of a Dakin's wash daily, and the application of Promogran topically to the wound each day. The patient is to use a SurePress compression wrap, which he will apply on a daily basis. Approval for the use of EpiFix and PuraPly were sought, but denied by the patient's insurance company several times. The patient is not eligible for any skin graft substitutes, based upon his insurance plan. Once again, we have reinforced the need for compression, elevation, avoidance of prolonged idle sitting, etc. We will continue to monitor the patient's wound serially, and to assess the patient's progress. The patient's wound cultures were positive for Staph aureus and strep species, and the patient has completed a course of Augmentin 875 mg p.o. twice daily for a total of 10 days. Additionally, due to the persisting swelling, edema, and lymphedema in the patient's left lower extremity, as well as venous hypertension, we requested preauthorization for the use of pneumatic mechanical compression pumps to the lower extremities. Prior conservative treatments that have been tried include elevation, exercise, compression wraps, and patient education in lymphedema management. Despite these conservative treatments, the patient continues to present with lymphedema. I feel as though additional care in the form of long-term daily home compression pump therapy is warranted at this time in order to maintain proper management of this chronic condition. I am prescribing Lymphapress pneumatic compression pumps, with bilateral leg sleeves and appropriate number of expanders. This is a chronic condition and the device will be needed indefinitely. The prognosis is good with the use of this compression pump. Other modalities have failed. Therefore the patient appears to meet the medical criteria for the home medical equipment. We continue to await receipt of these pumps. Patient smokes approximately 1/2 pack of cigarettes per day, and has been advised to refrain from his smoking habit. Influenza vaccine was not administered today. Patient stands 5 feet 10 inches tall. He weighs 246 pounds. His BMI is 35.3, which places him in a class II obesity category. Weight loss has been recommended, and collaboration with the patient's primary care physician has been advised. The patient will return in 1 week for reevaluation. Total time: 29 minutes.
== END 2021-07-02 23:59 ==
LOC: WC 08:15
PROVIDERS: PCP Family Medicine; Referring Provider Surgery; Visit Provider Surgery
DX: I83.222 Varicose veins of left lower extremity with both ulcer of calf and inflammation (principal); L97.222 Non-pressure chronic ulcer of left calf with fat layer exposed; T81.89XA Other complications of procedures, not elsewhere classified, initial encounter; Y83.8 Other surgical procedures as the cause of abnormal reaction of the patient, or of later complication, without mention of misadventure at the time of the procedure; F17.200 Nicotine dependence, unspecified, uncomplicated; L02.416 Cutaneous abscess of left lower limb; L81.9 Disorder of pigmentation, unspecified; E66.9 Obesity, unspecified; Z68.35 Body mass index [BMI] 35.0-35.9, adult; I89.0 Lymphedema, not elsewhere classified
CPT/HCPCS: 11042

== ENCOUNTER 2021-07-28 08:15 | Outpatient (RCR) | payer OTHER, SELFPAY ==
[2021-07-03 00:21] VITALS: BP 158/94; PULSE 74; RESP 16; TEMP 36.1; BMI 35.3
[2021-07-07 08:12] VITALS: BP 156/77; PULSE 87; RESP 18; TEMP 36.1; BMI 35.3
--- NOTE | 2021-07-07 09:12 | HP.PCM_ITS ---
History of Present Illness Date of Service: 07/07/21 Chief Complaint: Open wound of the left lateral calf, status-post incision and drainage of abscess History of Wound: This is a 61-year-old male who was admitted to [facility] approximately 1 month prior to presentation with a large a bscess on the left lateral calf. On February 11, 2020, he underwent incision and drainage of the abscess. He spent approximately 5 days in the hospital, and was subsequently discharged on Augmentin. The patient claims to sleep on a flat mattress at night. However, he suffers from chronic swelling and edema in both lower extremities. Additionally, he has a history of superficial thrombophlebitis in the left lower extremity, and has undergone a prior left lower extremity vein stripping procedure in the remote past. Patient has developed chronic skin changes in his lower extremities, which include hyperpigmentation and lipodermatosclerosis in the gaiter areas bilaterally. 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 The patient claims to be relatively active. Management the time of presentation included the use of a wet-to-dry gauze packing daily. It is noted that patient underwent a venous duplex examination during his hospitalization recently, that was negative for any evidence of thrombosis, but indicated valvular incompetence of the deep and superficial venous systems bilaterally. [facility]LY [facility] Medical History Chronic venous insufficiency Postphlebitic syndrome with inflammation Home Medications Augmentin 875-125 Tablet 875 mg PO BID 03/18/20 [History Last Taken Unknown] rosuvastatin 20 mg PO DAILY 03/18/20 [History Last Taken Unknown] Social History Smoking Status: Light Smoker (<10/day) Vital Signs Vital Signs Vital Signs: 07/07/21 08:12 Temperature 97.0 F L Temperature Source Temporal Pulse Rate 87 Respiratory Rate 18 Blood Pressure 156/77 H Blood Pressure Mean 103 Blood Pressure Source Monitor Blood Pressure Position Semi-Fowlers Blood Pressure Location Left Arm Weight Weight: 246 lb Body Mass Index (BMI) 35.3 Physical Exam Const alert, oriented x3, no apparent distress and well nourished General Appearance: cooperative and well developed Orientation / Consciousness: awake, oriented to person, oriented to place and oriented to time HEENT normocephalic and head/scalp atraumatic Head and Scalp: normal to inspection, normocephalic and atraumatic External Ear: external ears normal Eyes PERRL and EOMs intact bilaterally General Eye: normal appearance of both eyes Resp normal respiratory effort, normal air movement, no retractions and no use of accessory muscles Effort and Inspection: able to speak in complete sentences Extremity no calf tenderness Extremity Narrative: Slight swelling and edema persist in the patient's left lower extremity. In addition, chronic lipodermatosclerosis and hyperpigmentation remain in the gaiter areas. Numerous prominent varicose veins are also present. General Extremity: Negative for clubbing or cyanosis Skin Wound Narrative: The ulceration on the left lateral calf persists. It appears to be smaller in size. Dimensions are documented elsewhere. There is no sign of infection or cellulitis. There is a moderate amount of bioburden. Neuro oriented x3, CN's II-XII intact bilaterally and moves all extremities Sensorium / Orientation: awake, alert, oriented to person, oriented to place and oriented to time Psych Appearance: grossly normal and appropriate Attitude: calm Activity / Motor Behavior: appropriate eye contact Speech: normal speech Mood & Affect: euthymic mood Thought Process: normal thought process Thought Content: normal thought content Attention / Concentration: attention grossly intact Debridement Note Debridement Note Wound debrided: Left lateral calf Laterality: Left Type of Debridement: Excisional debridement Anesthesia Used: 5% Lidocaine Gel Depth: Down to and including healthy tissue and in the subcutaneous layer Percentage of wound debrided: 100 Instrument Used: 3mm curette Tissue Removed: Bioburden Severity: Fat Layer Exposed Amount of bleeding with debridement: Mild Bleeding Controlled with: Compression and gauze Patient tolerated procedure: Patient tolerated procedure well Post-Debridement Measurements and Additional Note: Post-Debridement Measurements/Treatment KISHA - Nurse 1 - General Ulcer Assessment Start: 07/07/21 08:12 Freq: Status: Active Protocol: DIGNA Activity Type Activity Date Activity User E-Sign Co-Sign Detail Recorded Client Recorded Date Recorded By Document 07/07/21 08:12 MELISSA [id number] 07/07/21 08:15 MELISSA 07/07/21 08:12 KISHA - Today's Visit Information Type of service Follow-up Visit (Physician/[facility] TECHNICIAN ) Arrival Mode Ambulatory Patient Identification Verified (Name & Yes ) Patient Requires Transmission-Based No Precautions Height and Weight Body Mass Index (BMI) 35.3 BMI Classification Obese Vital Signs Temperature (97.8 F-99.1 F) 97.0 F L Temperature Source Temporal Pulse Rate (60-100) 87 Pulse Location Monitor Respiratory Rate (12-18) 18 Respiratory rate source Observation Blood Pressure (90/60-120/80) 156/77 H Blood Pressure Mean 103 Source Monitor Position Semi-Fowlers Blood Pressure Location Left Arm History Since Last Visit- (Skip if this is Patient's initial visit) Have you changed medications since your No last visit? Any new allergies or adverse reactions No Had a fall/change in ADL's that may No increase risk of falls Signs or symptoms of abuse and/or No neglect since last visit Have you been in the hospital since your No last visit? Has dressing in place as prescribed Yes Has compression in place as prescribed Yes Has offloadiing in place as prescribed N/A Experienced any changes in pain level or No management Left Footwear Regular Shoe Right Footwear Regular Shoe Pain Scale: 0-10 Numeric Is Patient Pain Free? Yes WC - Nurse 1 - General Ulcer Measurement Start: 07/07/21 08:12 Freq: Status: Active Protocol: Activity Type Activity Date Activity User E-Sign Co-Sign Detail Recorded Client Recorded Date Recorded By Document 07/07/21 08:12 MELISSA [id number] 07/07/21 08:15 MELISSA 07/07/21 08:12 Wound Center Nurse 1 #1 Lateral LLE -Combined with other wound No -Current Size (cm) - Length 0.6 -Current Size (cm) - Width 0.7 -Current Size (cm) - Depth 0.1 -Total Square Cm 0.42 -Photo Taken No -Epithelialization Small 1-33% -Undermining/Tunneling No -Circular Undermining No -Exudate Amt Medium -Exudate Type Serosanguineous -Wound Margin Flat & Intact -Granulation Amt Medium (34-66%) -Granulation Quality Red -Slough/Fibrin Yes -Necrosis Amt Small (1-33%) -Necrotic Tissue Type Adherent Slough -Structure Exposed N/A -Texture (Lois-wound Skin Appearance) Not Assessed -Moisture (Lois-wound Skin Appearance) Assessed -Color (Lois-wound Skin Appearance) Assessed -Temperature (Lois-wound Skin No Abnormality Appearance) (Pt Warm) -Tenderness on Palpation (Lois-wound No Skin Appearance) -Ulcer Cleansing Rinsed/ Irrigated with Saline -Foul Odor after Cleansing No -Anesthetic Used 5% Lidocaine Gel Lower Limb Edema Present Yes Left Calf (cm) 43.4 Left Ankle (cm) 26 WC - Nurse 2 - General Ulcer CM Notes Start: 07/07/21 08:12 Freq: Status: Active Protocol: Activity Type Activity Date Activity User E-Sign Co-Sign Detail Recorded Client Recorded Date Recorded By Document 07/07/21 08:32 PL [id number] 07/07/21 08:33 PL 07/07/21 08:32 Wound Center Nurse 2 #1 Lateral LLE -Time 08:22 -Correct Patient Yes -Correct Side, Site, Position Yes -Correct Procedure Yes -Procedure Performed Yes -Type of Procedure Debridement -Clinical Debridement Subcutaneous -Tissue Removed Subcutaneous -Post Debridement (cm) - Length 0.5 -Post Debridement (cm) - Width 0.5 -Post Debridement (cm) - Depth 0.1 -Total Square (Post) (cm) 0.25 -Area of Debridement (cm) - Length 0.5 -Area of Debridement (cm) - Width 0.5 -Total Square (Area) (cm) 0.25 -Tunneling No -Undermining/Tunneling No -Circular Undermining No -Wound/Ulcer Outcome Not Healed -Ulcer Cleansing Rinsed/ Irrigated with Saline -Foul Odor after Cleansing No -Bioengineered Tissue No -Bleeding Controlled with Pressure -Treatment Response Procedure Tolerated Well -Debridement - Subq, 1st 20sq cm Yes WC - Nurse 3 - General Ulcer D/C NN Start: 07/07/21 08:12 Freq: Status: Active Protocol: Activity Type Activity Date Activity User E-Sign Co-Sign Detail Recorded Client Recorded Date Recorded By Document 07/07/21 08:45 JF [id number] 07/07/21 08:46 MELISSA 07/07/21 08:45 Wound Care Nurse 3 -Ulcer Cleansing Rinsed/ Irrigated with Saline -Foul Odor after Cleansing No -Primary Dressing Applied Promogran -Primary Dressing Covered/Secured with Dry Gauze & Roll Gauze -Promogran 0 Left -Compression Wrap Surepress ($) Pain Scale: 0-10 Numeric Is Patient Pain Free? 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: CODE(S): I83.229 - Varicose veins of left lower extremity with both ulcer of unspecified site and inflammation; L97.929 - Non-pressure chronic ulcer of unspecified part of left lower leg with unspecified severity (2) Surgical wound present: CODE(S): T14.8XXA - Other injury of unspecified body region, initial encounter (3) Chronic venous insufficiency: CODE(S): I87.2 - Venous insufficiency (chronic) (peripheral) (4) Postphlebitic syndrome with inflammation: CODE(S): I87.029 - Postthrombotic syndrome with inflammation of unspecified lower extremity (5) Leg swelling: CODE(S): M79.89 - Other specified soft tissue disorders (6) Leg edema: CODE(S): R60.0 - Localized edema (7) Abscess of left leg: CODE(S): L02.416 - Cutaneous abscess of left lower limb (8) Chronic venous insufficiency: CODE(S): I87.2 - Venous insufficiency (chronic) (peripheral) (9) Post-phlebitic dermatosis of both lower extremities: CODE(S): I87.093 - Postthrombotic syndrome with other complications of bilateral lower extremity (10) Hyperpigmentation of skin: CODE(S): L81.9 - Disorder of pigmentation, unspecified (11) Lipodermatosclerosis of both lower extremities: CODE(S): I83.11 - Varicose veins of right lower extremity with inflammation; I83.12 - Varicose veins of left lower extremity with inflammation (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: (13) Wound of left leg: CODE(S): S81.802A - Unspecified open wound, left lower leg, initial encounter QUALIFIERS: Encounter type: subsequent encounter Qualified Code(s): S81.802D - Unspecified open wound, left lower leg, subsequent encounter (14) Obesity (BMI 35.0-39.9 without comorbidity): CODE(S): E66.9 - Obesity, unspecified (15) Personal history of thrombophlebitis: CODE(S): Z86.72 - Personal history of thrombophlebitis (16) Tobacco abuse: CODE(S): Z72.0 - Tobacco use (17) Tobacco abuse counseling: CODE(S): Z71.6 - Tobacco abuse counseling (18) Lymphedema of left leg: CODE(S): I89.0 - Lymphedema, not elsewhere classified PLAN: There appears to be an improvement since the patient's last visit. The patient has been advised to continue conservative treatment measures. These are to include leg elevation. He is to continue sleeping on a flat mattress at night. His legs are to be elevated to heart level, or higher, even during daytime hours. This is to be implemented as much as possible. The patient has been advised to refrain from prolonged, idle standing and sitting. Activity has been encouraged. Implementation of the calf and foot muscle pumps has been explained. Weight loss is also been recommended. While the patient's willing compliance may be adequate, he does work long hours each day at the local [employer], which results in long hours of lower extremity dependency, thus enhancing venous hypertension. There is continued concern as to the patient's occupation and the demands for prolonged idle sitting, which is thought to be a contributing factor to the patient's lack of progress. He is currently working more than 50 hours/week, 10 hours/day. This has been discussed with the patient repeatedly. It is noted that the patient's lower extremities are swollen and edematous today, suggesting the patient has lapsed somewhat in his level of compliance. In this regard, he has been once again advised to elevate his lower extremities as much as possible, use SurePress wraps on a daily basis, avoid prolonged idle sitting and standing, remain active, etc. He admits to often working up to 82 hours/week, which is excessive, and contrary to the need for increasing elevation of the patient's lower extremities. We are to continue the use of a Dakin's wash daily, and the application of Promogran topically to the wound each day. The patient is to use a SurePress compression wrap, which he will apply on a daily basis. Approval for the use of EpiFix and PuraPly were sought, but denied by the patient's insurance company several times. The patient is not eligible for any skin graft substitutes, based upon his insurance plan. Once again, we have reinforced the need for compression, elevation, avoidance of prolonged idle sitting, etc. We will continue to monitor the patient's wound serially, and to assess the patient's progress. The patient's wound cultures were positive for Staph aureus and strep species, and the patient has completed a course of Augmentin 875 mg p.o. twice daily for a total of 10 days. Additionally, due to the persisting swelling, edema, and lymphedema in the patient's left lower extremity, as well as venous hypertension, we requested preauthorization for the use of pneumatic mechanical compression pumps to the lower extremities. Prior conservative treatments that have been tried include elevation, exercise, compression wraps, and patient education in lymphedema management. Despite these conservative treatments, the patient continues to present with lymphedema. I feel as though additional care in the form of long- term daily home compression pump therapy is warranted at this time in order to maintain proper management of this chronic condition. I am prescribing Lymphapress pneumatic compression pumps, with bilateral leg sleeves and appropriate number of expanders. This is a chronic condition and the device will be needed indefinitely. The prognosis is good with the use of this compression pump. Other modalities have failed. Therefore the patient appears to meet the medical criteria for the home medical equipment. We continue to await receipt of these pumps. Patient smokes approximately 1/2 pack of cigarettes per day, and has been advised to refrain from his smoking habit. Influenza vaccine was not administered today. Patient stands 5 feet 10 inches tall. He weighs 246 pounds. His BMI is 35.3, which places him in a class II obesity category. Weight loss has been recommended, and collaboration with the patient's primary care physician has been advised. The patient will return in 1 week for reevaluation. Total time: 28 minutes.
[2021-07-14 08:10] VITALS: TEMP 36.1; BMI 35.3
--- NOTE | 2021-07-14 08:44 | PCM.WC.HP ---
History of Present Illness Date of Service: 07/14/21 Chief Complaint: Open wound of the left lateral calf, status-post incision and drainage of abscess History of Wound: This is a 61-year-old male who was admitted to [facility] approximately 1 month prior to presentation with a large abscess on the left lateral calf. On February 11, 2020, he underwent incision and drainage of the abscess. He spent approximately 5 days in the hospital, and was subsequently discharged on Augmentin. The patient claims to sleep on a flat mattress at night. However, he suffers from chronic swelling and edema in both lower extremities. Additionally, he has a history of superficial thrombophlebitis in the left lower extremity, and has undergone a prior left lower extremity vein stripping procedure in the remote past. Patient has developed chronic skin changes in his lower extremities, which include hyperpigmentation and lipodermatosclerosis in the gaiter areas bilaterally. 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 The patient claims to be relatively active. Management the time of presentation included the use of a wet-to-dry gauze packing daily. It is noted that patient underwent a venous duplex examination during his hospitalization recently, that was negative for any evidence of thrombosis, but indicated valvular incompetence of the deep and superficial venous systems bilaterally. [facility] Medical History Chronic venous insufficiency Postphlebitic syndrome with inflammation Home Medications Augmentin 875-125 Tablet 875 mg PO BID 03/18/20 [History Last Taken Unknown] rosuvastatin 20 mg PO DAILY 03/18/20 [History Last Taken Unknown] Social History Smoking Status: Light Smoker (<10/day) Vital Signs Vital Signs Vital Signs: 07/14/21 08:10 Temperature 97.0 F L Temperature Source Temporal Weight Weight: 246 lb Body Mass Index (BMI) 35.3 Physical Exam Const alert, oriented x3, no apparent distress and well nourished General Appearance: cooperative, comfortable and well developed Orientation / Consciousness: awake, oriented to person, oriented to place and oriented to time HEENT normocephalic and head/scalp atraumatic Head and Scalp: normal to inspection, normocephalic and atraumatic External Ear: external ears normal Eyes PERRL and EOMs intact bilaterally General Eye: normal appearance of both eyes Resp normal respiratory effort, normal air movement, no retractions and no use of accessory muscles Effort and Inspection: able to speak in complete sentences Extremity no calf tenderness Extremity Narrative: Chronic changes persist in the patient's left lower extremity. There is mild swelling and edema. Chronic hyperpigmentation and lipodermatosclerosis are noted in the left gaiter area. Multiple large, prominent varicose veins are also noted. General Extremity: Negative for clubbing or cyanosis Skin Wound Narrative: The ulceration on the left lateral calf persists. It is smaller in size. There is no sign of infection or cellulitis. There is a moderate amount of bioburden. Dimensions are documented elsewhere. Neuro oriented x3, CN's II-XII intact bilaterally and moves all extremities Sensorium / Orientation: awake, alert, oriented to person, oriented to place and oriented to time Psych Appearance: grossly normal and appropriate Attitude: calm Activity / Motor Behavior: appropriate eye contact Speech: normal speech Mood & Affect: euthymic mood Thought Process: normal thought process Thought Content: normal thought content Attention / Concentration: attention grossly intact Debridement Note Debridement Note Wound debrided: Left lateral calf Laterality: Left Type of Debridement: Excisional debridement Anesthesia Used: 5% Lidocaine Gel Depth: Down to and including healthy tissue and in the subcutaneous layer Percentage of wound debrided: 100 Instrument Used: 3mm curette Tissue Removed: Bioburden Severity: Fat Layer Exposed Amount of bleeding with debridement: Mild Bleeding Controlled with: Compression and gauze Patient tolerated procedure: Patient tolerated procedure well Post-Debridement Measurements and Additional Note: Post-Debridement Measurements/Treatment - Nurse 1 - General Ulcer Assessment Start: 07/07/21 08:12 Freq: Status: Active Protocol: DIGNA Activity Type Activity Date Activity User E-Sign Co-Sign Detail Recorded Client Recorded Date Recorded By Document 07/07/21 08:12 MELISSA [id number] 07/07/21 08:15 MELISSA Document 07/14/21 08:10 MAYTE [id number] 07/14/21 08:12 MAYTE 07/07/21 07/14/21 08:12 08:10 - Today's Visit Information Type of service Follow-up Visit Follow-up Visit (Physician/UNEMPLOYMENT 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 (Physician/UNEMPLOYMENT INSPECTOR ) ) Arrival Mode Ambulatory Ambulatory Patient Identification Verified (Name & Yes Yes ) Patient Requires Transmission-Based No Precautions Height and Weight Body Mass Index (BMI) 35.3 35.3 BMI Classification Obese Obese Vital Signs Temperature (97.8 F-99.1 F) 97.0 F L 97.0 F L Temperature Source Temporal Temporal Pulse Rate (60-100) 87 Pulse Location Monitor Respiratory Rate (12-18) 18 Respiratory rate source Observation Blood Pressure (90/60-120/80) 156/77 H Blood Pressure Mean 103 Source Monitor Position Semi-Fowlers Blood Pressure Location Left Arm History Since Last Visit- (Skip if this is Patient's initial visit) Have you changed medications since your No No last visit? Any new allergies or adverse reactions No No Had a fall/change in ADL's that may No No increase risk of falls Signs or symptoms of abuse and/or No No neglect since last visit Have you been in the hospital since your No No last visit? Has dressing in place as prescribed Yes Yes Has compression in place as prescribed Yes Yes Has offloadiing in place as prescribed N/A N/A Experienced any changes in pain level or No No management Left Footwear Regular Shoe Regular Shoe Right Footwear Regular Shoe Regular Shoe Pain Scale: 0-10 Numeric Is Patient Pain Free? Yes Yes - Nurse 1 - General Ulcer Measurement Start: 07/07/21 08:12 Freq: Status: Active Protocol: Activity Type Activity Date Activity User E-Sign Co-Sign Detail Recorded Client Recorded Date Recorded By Document 07/07/21 08:12 [id number] 07/07/21 08:15 Document 07/14/21 08:10 KR [id number] 07/14/21 08:12 KR 07/07/21 07/14/21 08:12 08:10 Wound Center Nurse 1 #1 Lateral LLE -Combined with other wound No -Current Size (cm) - Length 0.6 0.4 -Current Size (cm) - Width 0.7 0.4 -Current Size (cm) - Depth 0.1 0.1 -Total Square Cm 0.42 0.16 -Photo Taken No -Epithelialization Small 1-33% -Undermining/Tunneling No -Circular Undermining No -Exudate Amt Medium None Present -Exudate Type Serosanguineous -Wound Margin Flat & Intact Distinct, Outline Attached -Granulation Amt Medium (34-66%) -Granulation Quality Red -Slough/Fibrin Yes -Necrosis Amt Small (1-33%) None Present (0 %) -Necrotic Tissue Type Adherent Slough -Structure Exposed N/A -Texture (Lois-wound Skin Appearance) Not Assessed Assessed, Scarring -Moisture (Lois-wound Skin Appearance) Assessed Assessed,Dry/ Scaly -Color (Lois-wound Skin Appearance) Assessed No Abnormality, Assessed -Temperature (Lois-wound Skin No Abnormality No Abnormality Appearance) (Pt Warm) (Pt Warm) -Tenderness on Palpation (Lois-wound No No Skin Appearance) -Ulcer Cleansing Rinsed/ Rinsed/ Irrigated with Irrigated with Saline Saline -Foul Odor after Cleansing No No -Anesthetic Used 5% Lidocaine 5% Lidocaine Gel Gel Lower Limb Edema Present Yes Left Calf (cm) 43.4 Left Ankle (cm) 26 WC - Nurse 2 - General Ulcer CM Notes Start: 07/07/21 08:12 Freq: Status: Active Protocol: Activity Type Activity Date Activity User E-Sign Co-Sign Detail Recorded Client Recorded Date Recorded By Document 07/07/21 08:32 PL [id number] 07/07/21 08:33 PL Document 07/14/21 08:42 PL [id number] 07/14/21 08:43 PL 07/07/21 07/14/21 08:32 08:42 Wound Center Nurse 2 -Time 08:22 08:34 -Correct Patient Yes Yes -Correct Side, Site, Position Yes Yes -Correct Procedure Yes Yes -Procedure Performed Yes Yes -Type of Procedure Debridement Debridement -Clinical Debridement Subcutaneous Subcutaneous -Tissue Removed Subcutaneous Subcutaneous -Post Debridement (cm) - Length 0.5 0.4 -Post Debridement (cm) - Width 0.5 0.4 -Post Debridement (cm) - Depth 0.1 0.1 -Total Square (Post) (cm) 0.25 0.16 -Area of Debridement (cm) - Length 0.5 0.4 -Area of Debridement (cm) - Width 0.5 0.4 -Total Square (Area) (cm) 0.25 0.16 -Tunneling No No -Undermining/Tunneling No No -Circular Undermining No No -Wound/Ulcer Outcome Not Healed Not Healed -Ulcer Cleansing Rinsed/ Rinsed/ Irrigated with Irrigated with Saline Saline -Foul Odor after Cleansing No No -Bioengineered Tissue No No -Bleeding Controlled with Pressure Pressure -Treatment Response Procedure Procedure Tolerated Well Tolerated Well -Debridement - Subq, 1st 20sq cm Yes Yes WC - Nurse 3 - General Ulcer D/C NN Start: 07/07/21 08:12 Freq: Status: Active Protocol: Activity Type Activity Date Activity User E-Sign Co-Sign Detail Recorded Client Recorded Date Recorded By Document 07/07/21 08:45 MELISSA [id number] 07/07/21 08:46 MELISSA 07/07/21 08:45 Wound Care Nurse 3 -Ulcer Cleansing Rinsed/ Irrigated with Saline -Foul Odor after Cleansing No -Primary Dressing Applied Promogran -Primary Dressing Covered/Secured with Dry Gauze & Roll Gauze -Promogran 0 Left -Compression Wrap Surepress ($) Pain Scale: 0-10 Numeric Is Patient Pain Free? 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: CODE(S): I83.229 - Varicose veins of left lower extremity with both ulcer of unspecified site and inflammation; L97.929 - Non-pressure chronic ulcer of unspecified part of left lower leg with unspecified severity (2) Chronic venous insufficiency: CODE(S): I87.2 - Venous insufficiency (chronic) (peripheral) (3) Postphlebitic syndrome with inflammation: CODE(S): I87.029 - Postthrombotic syndrome with inflammation of unspecified lower extremity (4) Leg swelling: CODE(S): M79.89 - Other specified soft tissue disorders (5) Leg edema: CODE(S): R60.0 - Localized edema (6) Abscess of left leg: CODE(S): L02.416 - Cutaneous abscess of left lower limb (7) Surgical wound present: CODE(S): T14.8XXA - Other injury of unspecified body region, initial encounter (8) Chronic venous insufficiency: CODE(S): I87.2 - Venous insufficiency (chronic) (peripheral) (9) Post-phlebitic dermatosis of both lower extremities: CODE(S): I87.093 - Postthrombotic syndrome with other complications of bilateral lower extremity (10) Hyperpigmentation of skin: CODE(S): L81.9 - Disorder of pigmentation, unspecified (11) Lipodermatosclerosis of both lower extremities: CODE(S): I83.11 - Varicose veins of right lower extremity with inflammation; I83.12 - Varicose veins of left lower extremity with inflammation (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: (13) Wound of left leg: CODE(S): S81.802A - Unspecified open wound, left lower leg, initial encounter QUALIFIERS: Encounter type: subsequent encounter Qualified Code(s): S81.802D - Unspecified open wound, left lower leg, subsequent encounter (14) Necrosis: CODE(S): I96 - Gangrene, not elsewhere classified (15) Obesity (BMI 35.0-39.9 without comorbidity): CODE(S): E66.9 - Obesity, unspecified (16) Personal history of thrombophlebitis: CODE(S): Z86.72 - Personal history of thrombophlebitis (17) Tobacco abuse: CODE(S): Z72.0 - Tobacco use (18) Tobacco abuse counseling: CODE(S): Z71.6 - Tobacco abuse counseling (19) Lymphedema of left leg: CODE(S): I89.0 - Lymphedema, not elsewhere classified PLAN: There appears to be an improvement since the patient's last visit. The patient has been advised to continue conservative treatment measures. These are to include leg elevation. He is to continue sleeping on a flat mattress at night. His legs are to be elevated to heart level, or higher, even during daytime hours. This is to be implemented as much as possible. The patient has been advised to refrain from prolonged, idle standing and sitting. Activity has been encouraged. Implementation of the calf and foot muscle pumps has been explained. Weight loss is also been recommended. While the patient's willing compliance may be adequate, he does work long hours each day at the local [employer], which results in long hours of lower extremity dependency, thus enhancing venous hypertension. There is continued concern as to the patient's occupation and the demands for prolonged idle sitting, which is thought to be a contributing factor to the patient's lack of progress. He is currently working more than 50 hours/week, 10 hours/day. This has been discussed with the patient repeatedly. It is noted that the patient's lower extremities are swollen and edematous today, suggesting the patient has lapsed somewhat in his level of compliance. In this regard, he has been once again advised to elevate his lower extremities as much as possible, use SurePress wraps on a daily basis, avoid prolonged idle sitting and standing, remain active, etc. He admits to often working up to 82 hours/week, which is excessive, and contrary to the need for increasing elevation of the patient's lower extremities. We are to continue the use of a Dakin's wash daily, and the application of Promogran topically to the wound each day. The patient is to use a SurePress compression wrap, which he will apply on a daily basis. Approval for the use of EpiFix and PuraPly were sought, but denied by the patient's insurance company several times. The patient is not eligible for any skin graft substitutes, based upon his insurance plan. Once again, we have reinforced the need for compression, elevation, avoidance of prolonged idle sitting, etc. We will continue to monitor the patient's wound serially, and to assess the patient's progress. The patient's wound cultures were positive for Staph aureus and strep species, and the patient has completed a course of Augmentin 875 mg p.o. twice daily for a total of 10 days. Additionally, due to the persisting swelling, edema, and lymphedema in the patient's left lower extremity, as well as venous hypertension, we requested preauthorization for the use of pneumatic mechanical compression pumps to the lower extremities. Prior conservative treatments that have been tried include elevation, exercise, compression wraps, and patient education in lymphedema management. Despite these conservative treatments, the patient continues to present with lymphedema. I feel as though additional care in the form of long-term daily home compression pump therapy is warranted at this time in order to maintain proper management of this chronic condition. I am prescribing Lymphapress pneumatic compression pumps, with bilateral leg sleeves and appropriate number of expanders. This is a chronic condition and the device will be needed indefinitely. The prognosis is good with the use of this compression pump. Other modalities have failed. Therefore the patient appears to meet the medical criteria for the home medical equipment. We continue to await receipt of these pumps. Patient smokes approximately 1/2 pack of cigarettes per day, and has been advised to refrain from his smoking habit. Influenza vaccine was not administered today. Patient stands 5 feet 10 inches tall. He weighs 246 pounds. His BMI is 35.3, which places him in a class II obesity category. Weight loss has been recommended, and collaboration with the patient's primary care physician has been advised. The patient will return in 1 week for reevaluation. Total time: 29 minutes.
[2021-07-14 08:47] VITALS: BP 153/71; PULSE 71
[2021-07-21 08:11] VITALS: BP 164/80; PULSE 78; TEMP 36; BMI 35.3
--- NOTE | 2021-07-21 08:38 | PCM.WC.HP ---
History of Present Illness Date of Service: 07/21/21 Chief Complaint: Open wound of the left lateral calf, status-post incision and drainage of abscess History of Wound: This is a 61-year-old male who was admitted to [facility] approximately 1 month prior to presentation with a large abscess on the left lateral calf. On February 11, 2020, he underwent incision and drainage of the abscess. He spent approximately 5 days in the hospital, and was subsequently discharged on Augmentin. The patient claims to sleep on a flat mattress at night. However, he suffers from chronic swelling and edema in both lower extremities. Additionally, he has a history of superficial thrombophlebitis in the left lower extremity, and has undergone a prior left lower extremity vein stripping procedure in the remote past. Patient has developed chronic skin changes in his lower extremities, which include hyperpigmentation and lipodermatosclerosis in the gaiter areas bilaterally. 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 The patient claims to be relatively active. Management the time of presentation included the use of a wet-to-dry gauze packing daily. It is noted that patient underwent a venous duplex examination during his hospitalization recently, that was negative for any evidence of thrombosis, but indicated valvular incompetence of the deep and superficial venous systems bilaterally. [facility] Medical History Chronic venous insufficiency Postphlebitic syndrome with inflammation Home Medications Augmentin 875-125 Tablet 875 mg PO BID 03/18/20 [History Last Taken Unknown] rosuvastatin 20 mg PO DAILY 03/18/20 [History Last Taken Unknown] Social History Smoking Status: Light Smoker (<10/day) Vital Signs Vital Signs Vital Signs: 07/21/21 08:11 Temperature 96.8 F L Temperature Source Temporal Pulse Rate 78 Blood Pressure 164/80 H Blood Pressure Mean 108 Blood Pressure Source Monitor Weight Weight: 246 lb Body Mass Index (BMI) 35.3 Physical Exam Const alert, oriented x3, no apparent distress and well nourished General Appearance: cooperative, comfortable and well developed Orientation / Consciousness: awake, oriented to person, oriented to place and oriented to time HEENT normocephalic and head/scalp atraumatic Head and Scalp: normal to inspection, normocephalic and atraumatic External Ear: external ears normal Eyes PERRL and EOMs intact bilaterally General Eye: normal appearance of both eyes Resp normal respiratory effort, normal air movement, no retractions and no use of accessory muscles Effort and Inspection: able to speak in complete sentences Extremity no calf tenderness Extremity Narrative: Chronic venous changes are noted in the left lower extremity. Multiple large varicose veins are noted. Chronic hyperpigmentation and lipodermatosclerosis are noted in the left gaiter area. Slight swelling is also noted. General Extremity: Negative for clubbing or cyanosis Skin Wound Narrative: The wound on the left lateral calf persists. It is little changed in size or appearance. There is a moderate amount of bioburden. There is no sign of infection or cellulitis. Dimensions are documented elsewhere. Neuro oriented x3, CN's II-XII intact bilaterally, moves all extremities and no sensory deficits noted Sensorium / Orientation: awake, alert, oriented to person, oriented to place and oriented to time Psych Appearance: grossly normal and appropriate Attitude: calm Activity / Motor Behavior: appropriate eye contact Speech: normal speech Mood & Affect: euthymic mood Thought Process: normal thought process Thought Content: normal thought content Attention / Concentration: attention grossly intact Debridement Note Debridement Note Wound debrided: Left lateral calf Laterality: Left Type of Debridement: Excisional debridement Anesthesia Used: 5% Lidocaine Gel Depth: Down to and including healthy tissue and in the subcutaneous layer Percentage of wound debrided: 100 Instrument Used: 5mm curette Tissue Removed: Bioburden Severity: Fat Layer Exposed Amount of bleeding with debridement: Mild Bleeding Controlled with: Compression and gauze Patient tolerated procedure: Patient tolerated procedure well Post-Debridement Measurements and Additional Note: Post-Debridement Measurements/Treatment KISHA - Nurse 1 - General Ulcer Assessment Start: 07/07/21 08:12 Freq: Status: Active Protocol: DIGNA Activity Type Activity Date Activity User E-Sign Co-Sign Detail Recorded Client Recorded Date Recorded By Document 07/07/21 08:12 JF [id number] 07/07/21 08:15 JF Document 07/14/21 08:10 KR [id number] 07/14/21 08:12 KR Document 07/21/21 08:11 AK [id number] 07/21/21 08:17 AK 07/07/21 07/14/2107/21/21 08:12 08:10 08:11 - Today's Visit Information Type of service Follow-up Visit Follow-up Visit Follow-up Visit (Physician/SURVEYING OR SPATIAL SCIENCE TECHNICIAN (Physician/SURVEYING OR SPATIAL SCIENCE TECHNICIAN (Physician/SURVEYING OR SPATIAL SCIENCE TECHNICIAN ) ) ) Arrival Mode Ambulatory Ambulatory Ambulatory Patient Identification Verified (Name & Yes Yes Yes ) Patient Requires Transmission-Based No No Precautions Safety Precautions NA Height and Weight Body Mass Index (BMI) 35.3 35.3 35.3 BMI Classification Obese Obese Obese Vital Signs Temperature (97.8 F-99.1 F) 97.0 F L 97.0 F L 96.8 F L Temperature Source Temporal Temporal Temporal Pulse Rate (60-100) 87 78 Pulse Location Monitor Monitor Respiratory Rate (12-18) 18 Respiratory rate source Observation Blood Pressure (90/60-120/80) 156/77 H 164/80 H Blood Pressure Mean 103 108 Source Monitor Monitor Position Semi-Fowlers Blood Pressure Location Left Arm History Since Last Visit- (Skip if this is Patient's initial visit) Have you changed medications since your No No No last visit? Any new allergies or adverse reactions No No No Had a fall/change in ADL's that may No No No increase risk of falls Signs or symptoms of abuse and/or No No No neglect since last visit Have you been in the hospital since your No No No last visit? Has dressing in place as prescribed Yes Yes Yes Has compression in place as prescribed Yes Yes Yes Has offloadiing in place as prescribed N/A N/A N/A Experienced any changes in pain level or No No No management Left Footwear Regular Shoe Regular Shoe Regular Shoe Right Footwear Regular Shoe Regular Shoe Regular Shoe Pain Scale: 0-10 Numeric Is Patient Pain Free? Yes Yes - Nurse 1 - General Ulcer Measurement Start: 07/07/21 08:12 Freq: Status: Active Protocol: Activity Type Activity Date Activity User E-Sign Co-Sign Detail Recorded Client Recorded Date Recorded By Document 07/07/21 08:12 JF [id number] 07/07/21 08:15 JF Document 07/14/21 08:10 KR [id number] 07/14/21 08:12 KR Document 07/21/21 08:11 AK [id number] 07/21/21 08:17 AK 07/07/21 07/14/21 07/21/21 08:12 08:10 08:11 Wound Center Nurse 1 #1 Lateral LLE -Combined with other wound No No -Current Size (cm) - Length 0.6 0.4 0.9 -Current Size (cm) - Width 0.7 0.4 0.7 -Current Size (cm) - Depth 0.1 0.1 0.1 -Total Square Cm 0.42 0.16 0.63 -Photo Taken No No -Epithelialization Small 1-33% -Tunneling No -Undermining/Tunneling No No -Circular Undermining No No -Change in Wound Grade/Stage No -Exudate Amt Medium None Present None Present -Exudate Type Serosanguineous -Wound Margin Flat & Intact Distinct, Distinct, Outline Outline Attached Attached -Granulation Amt Medium (34-66%) None Present (0 %) -Granulation Quality Red -Slough/Fibrin Yes No -Necrosis Amt Small (1-33%) None Present (0 None Present (0 %) %) -Necrotic Tissue Type Adherent Slough -Structure Exposed N/A N/A -Texture (Lois-wound Skin Appearance) Not Assessed Assessed, No Abnormality, Scarring Assessed -Moisture (Lois-wound Skin Appearance) Assessed Assessed,Dry/ Assessed,Dry/ Scaly Scaly -Color (Lois-wound Skin Appearance) Assessed No Abnormality, No Abnormality, Assessed Assessed -Temperature (Lois-wound Skin No Abnormality No Abnormality No Abnormality Appearance) (Pt Warm) (Pt Warm) (Pt Warm) -Tenderness on Palpation (Lois-wound No No No Skin Appearance) -Ulcer Cleansing Rinsed/ Rinsed/ Rinsed/ Irrigated with Irrigated with Irrigated with Saline Saline Saline -Foul Odor after Cleansing No No No -Anesthetic Used 5% Lidocaine 5% Lidocaine 4% Lidocaine Gel Gel Solution Lower Limb Edema Present Yes No Left Calf (cm) 43.4 46 Left Ankle (cm) 26 26 WC - Nurse 2 - General Ulcer CM Notes Start: 07/07/21 08:12 Freq: Status: Active Protocol: Activity Type Activity Date Activity User E-Sign Co-Sign Detail Recorded Client Recorded Date Recorded By Document 07/07/21 08:32 PL [id number] 07/07/21 08:33 PL Document 07/14/21 08:42 PL [id number] 07/14/21 08:43 PL 07/07/21 07/14/21 08:32 08:42 Wound Center Nurse 2 #1 Lateral LLE -Time 08:22 08:34 -Correct Patient Yes Yes -Correct Side, Site, Position Yes Yes -Correct Procedure Yes Yes -Procedure Performed Yes Yes -Type of Procedure Debridement Debridement -Clinical Debridement Subcutaneous Subcutaneous -Tissue Removed Subcutaneous Subcutaneous -Post Debridement (cm) - Length 0.5 0.4 -Post Debridement (cm) - Width 0.5 0.4 -Post Debridement (cm) - Depth 0.1 0.1 -Total Square (Post) (cm) 0.25 0.16 -Area of Debridement (cm) - Length 0.5 0.4 -Area of Debridement (cm) - Width 0.5 0.4 -Total Square (Area) (cm) 0.25 0.16 -Tunneling No No -Undermining/Tunneling No No -Circular Undermining No No -Wound/Ulcer Outcome Not Healed Not Healed -Ulcer Cleansing Rinsed/ Rinsed/ Irrigated with Irrigated with Saline Saline -Foul Odor after Cleansing No No -Bioengineered Tissue No No -Bleeding Controlled with Pressure Pressure -Treatment Response Procedure Procedure Tolerated Well Tolerated Well -Debridement - Subq, 1st 20sq cm Yes Yes WC - Nurse 3 - General Ulcer D/C NN Start: 07/07/21 08:12 Freq: Status: Active Protocol: Activity Type Activity Date Activity User E-Sign Co-Sign Detail Recorded Client Recorded Date Recorded By Document 07/07/21 08:45 MELISSA [id number] 07/07/21 08:46 JF Document 07/14/21 08:47 KR [id number] 07/14/21 08:48 KR Document 07/21/21 08:33 AK [id number] 07/21/21 08:34 AK 07/07/21 07/14/21 07/21/21 08:45 08:47 08:33 Wound Care Nurse 3 #1 Lateral LLE -Ulcer Cleansing Rinsed/ Rinsed/ Rinsed/ Irrigated with Irrigated with Irrigated with Saline Saline Saline -Foul Odor after Cleansing No No -Negative Pressure Wound Therapy N/A -Primary Dressing Applied Promogran Promogran -Primary Dressing Covered/Secured with Dry Gauze & Dry Gauze,Dry Dry Gauze, Roll Gauze Gauze & Roll Secured with Gauze,Secured Tape with Tape -Promogran 0 0 Left -Lotion applied to leg before No compression wrap -Compression Wrap Surepress ($) Surepress ($) -Stockings Yes -Other own Vital Signs Pulse Rate (60-100) 71 Pulse Location Monitor Blood Pressure (90/60-120/80) 153/71 H Blood Pressure Mean 98 Source Monitor Position Semi-Fowlers Blood Pressure Location Right Arm Pain Scale: 0-10 Numeric Is Patient Pain Free? 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: CODE(S): I83.229 - Varicose veins of left lower extremity with both ulcer of unspecified site and inflammation; L97.929 - Non-pressure chronic ulcer of unspecified part of left lower leg with unspecified severity (2) Chronic venous insufficiency: CODE(S): I87.2 - Venous insufficiency (chronic) (peripheral) (3) Postphlebitic syndrome with inflammation: CODE(S): I87.029 - Postthrombotic syndrome with inflammation of unspecified lower extremity (4) Leg swelling: CODE(S): M79.89 - Other specified soft tissue disorders (5) Leg edema: CODE(S): R60.0 - Localized edema (6) Abscess of left leg: CODE(S): L02.416 - Cutaneous abscess of left lower limb (7) Surgical wound present: CODE(S): T14.8XXA - Other injury of unspecified body region, initial encounter (8) Chronic venous insufficiency: CODE(S): I87.2 - Venous insufficiency (chronic) (peripheral) (9) Post-phlebitic dermatosis of both lower extremities: CODE(S): I87.093 - Postthrombotic syndrome with other complications of bilateral lower extremity (10) Hyperpigmentation of skin: CODE(S): L81.9 - Disorder of pigmentation, unspecified (11) Lipodermatosclerosis of both lower extremities: CODE(S): I83.11 - Varicose veins of right lower extremity with inflammation; I83.12 - Varicose veins of left lower extremity with inflammation (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: (13) Wound of left leg: CODE(S): S81.802A - Unspecified open wound, left lower leg, initial encounter QUALIFIERS: Encounter type: subsequent encounter Qualified Code(s): S81.802D - Unspecified open wound, left lower leg, subsequent encounter (14) Obesity (BMI 35.0-39.9 without comorbidity): CODE(S): E66.9 - Obesity, unspecified (15) Personal history of thrombophlebitis: CODE(S): Z86.72 - Personal history of thrombophlebitis (16) Tobacco abuse: CODE(S): Z72.0 - Tobacco use (17) Tobacco abuse counseling: CODE(S): Z71.6 - Tobacco abuse counseling PLAN: There appears to be slight improvement since the patient's last visit. The patient has been advised to continue conservative treatment measures. These are to include leg elevation. He is to continue sleeping on a flat mattress at night. His legs are to be elevated to heart level, or higher, even during daytime hours. This is to be implemented as much as possible. The patient has been advised to refrain from prolonged, idle standing and sitting. Activity has been encouraged. Implementation of the calf and foot muscle pumps has been explained. Weight loss is also been recommended. 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 There is continued concern as to the patient's occupation and the demands for prolonged idle sitting, which is thought to be a contributing factor to the patient's lack of progress. He works more than 50 hours/week, 10 hours/day. This has been discussed with the patient repeatedly. The patient has been advised to elevate his lower extremities as much as possible, and to use a graduated compression stockings of 20 to 30 mmHg compression on a daily basis, avoid prolonged idle sitting and standing, remain active, etc. We are to continue the use of a Dakin's wash daily, and the application of Promogran topically to the wound each day. Approval for the use of EpiFix and PuraPly were sought, but denied by the patient's insurance company several times. The patient is not eligible for any skin graft substitutes, based upon his insurance plan. Once again, we have reinforced the need for compression, elevation, avoidance of prolonged idle sitting, etc. We will continue to monitor the patient's wound serially, and to assess the patient's progress. The patient smokes approximately 1/2 pack of cigarettes per day, and has been advised to refrain from his smoking habit. Influenza vaccine was not administered today. Patient stands 5 feet 10 inches tall. He weighs 246 pounds. His BMI is 35.3, which places him in a class II obesity category. Weight loss has been recommended, and collaboration with the patient's primary care physician has been advised. The patient will return in 1 week for reevaluation. Total time: 28 minutes.
[2021-07-28 08:23] VITALS: BP 151/77; PULSE 79; RESP 16; TEMP 36.4; BMI 35.3
--- NOTE | 2021-07-28 08:41 | HP.PCM_ITS ---
History of Present Illness Date of Service: 07/28/21 Chief Complaint: Open wound of the left lateral calf, status-post incision and drainage of abscess History of Wound: This is a 61-year-old male who was admitted to [facility] approximately 1 month prior to presentation with a large a bscess on the left lateral calf. On February 11, 2020, he underwent incision and drainage of the abscess. He spent approximately 5 days in the hospital, and was subsequently discharged on Augmentin. The patient claims to sleep on a flat mattress at night. However, he suffers from chronic swelling and edema in both lower extremities. Additionally, he has a history of superficial thrombophlebitis in the left lower extremity, and has undergone a prior left lower extremity vein stripping procedure in the remote past. Patient has developed chronic skin changes in his lower extremities, which include hyperpigmentation and lipodermatosclerosis in the gaiter areas bilaterally. 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 The patient claims to be relatively active. Management the time of presentation included the use of a wet-to-dry gauze packing daily. It is noted that patient underwent a venous duplex examination during his hospitalization recently, that was negative for any evidence of thrombosis, but indicated valvular incompetence of the deep and superficial venous systems bilaterally. [facility] Medical History Chronic venous insufficiency Postphlebitic syndrome with inflammation Home Medications Augmentin 875-125 Tablet 875 mg PO BID 03/18/20 [History Last Taken Unknown] rosuvastatin 20 mg PO DAILY 03/18/20 [History Last Taken Unknown] Social History Smoking Status: Light Smoker (<10/day) Vital Signs Vital Signs Vital Signs: 07/28/21 08:23 Temperature 97.6 F L Temperature Source Temporal Pulse Rate 79 Respiratory Rate 16 Blood Pressure 151/77 H Blood Pressure Mean 101 Blood Pressure Source Monitor Blood Pressure Position Sitting Blood Pressure Location Right Forearm Oxygen Delivery Method Room Air Weight Weight: 246 lb Body Mass Index (BMI) 35.3 Physical Exam Const alert, oriented x3, no apparent distress and well nourished General Appearance: cooperative and well developed Orientation / Consciousness: awake, oriented to person, oriented to place and oriented to time HEENT normocephalic and head/scalp atraumatic Head and Scalp: normal to inspection, normocephalic and atraumatic External Ear: external ears normal Eyes PERRL and EOMs intact bilaterally General Eye: normal appearance of both eyes Resp normal respiratory effort, normal air movement, no retractions and no use of accessory muscles Effort and Inspection: able to speak in complete sentences Extremity no calf tenderness General Extremity: Negative for clubbing or cyanosis Skin Wound Narrative: Slight swelling and edema are noted in the patient's left lower extremity. Multiple prominent varicosities are also noted. Chronic skin changes persist, namely hyperpigmentation and lipodermatosclerosis in the gaiter area. The wound on the left lateral calf persists, but is smaller in size. Dimensions are documented elsewhere. There is no sign of infection or cellulitis. There is a moderate amount of bioburden. Neuro oriented x3, CN's II-XII intact bilaterally and moves all extremities Sensorium / Orientation: awake, alert, oriented to person, oriented to place and oriented to time Psych Appearance: grossly normal and appropriate Attitude: calm Activity / Motor Behavior: appropriate eye contact Speech: normal speech Mood & Affect: euthymic mood Thought Process: normal thought process Thought Content: normal thought content Attention / Concentration: attention grossly intact Debridement Note Debridement Note Wound debrided: Left lateral calf Laterality: Left Type of Debridement: Excisional debridement Anesthesia Used: 5% Lidocaine Gel Depth: Down to and including healthy tissue and in the subcutaneous layer Percentage of wound debrided: 100 Instrument Used: 3mm curette Severity: Fat Layer Exposed Amount of bleeding with debridement: Mild Bleeding Controlled with: Compression and gauze Patient tolerated procedure: Patient tolerated procedure well Post-Debridement Measurements and Additional Note: Post-Debridement Measurements/Treatment WC - Nurse 1 - General Ulcer Assessment Start: 07/07/21 08:12 Freq: Status: Active Protocol: DIGNA Activity Type Activity Date Activity User E-Sign Co-Sign Detail Recorded Client Recorded Date Recorded By Document 07/07/21 08:12 JF [id number] 07/07/21 08:15 JF Document 07/14/21 08:10 KR [id number] 07/14/21 08:12 KR Document 07/21/21 08:11 AK [id number] 07/21/21 08:17 AK Document 07/28/21 08:23 BMF [id number] 07/28/21 08:29 [facility] 07/07/21 07/14/21 07/21/21 08:12 08:10 08:11 - Today's Visit Information Type of service Follow-up Visit Follow-up Visit Follow-up Visit (Physician/MILLER DISTILLERY (Physician/MILLER DISTILLERY (Physician/MILLER DISTILLERY ) ) ) Arrival Mode Ambulatory Ambulatory Ambulatory Transfer Assistance Patient Identification Verified (Name & Yes Yes Yes ) Patient Requires Transmission-Based No No Precautions Safety Precautions NA Height and Weight Body Mass Index (BMI) 35.3 35.3 35.3 BMI Classification Obese Obese Obese Vital Signs Temperature (97.8 F-99.1 F) 97.0 F L 97.0 F L 96.8 F L Temperature Source Temporal Temporal Temporal Pulse Rate (60-100) 87 78 Pulse Location Monitor Monitor Respiratory Rate (12-18) 18 Respiratory rate source Observation Oxygen Delivery Method Blood Pressure (90/60-120/80) 156/77 H 164/80 H Blood Pressure Mean 103 108 Source Monitor Monitor Position Semi-Fowlers Blood Pressure Location Left Arm History Since Last Visit- (Skip if this is Patient's initial visit) Have you changed medications since your No No No last visit? Any new allergies or adverse reactions No No No Had a fall/change in ADL's that may No No No increase risk of falls Signs or symptoms of abuse and/or No No No neglect since last visit Have you been in the hospital since your No No No last visit? Has dressing in place as prescribed Yes Yes Yes Has compression in place as prescribed Yes Yes Yes Has offloadiing in place as prescribed N/A N/A N/A Experienced any changes in pain level or No No No management Left Footwear Regular Shoe Regular Shoe Regular Shoe Right Footwear Regular Shoe Regular Shoe Regular Shoe Pain Scale: 0-10 Numeric Is Patient Pain Free? Yes Yes 07/28/21 08:23 WC - Today's Visit Information Type of service Follow-up Visit (Physician/MILLER DISTILLERY ) Arrival Mode Ambulatory Transfer Assistance None Patient Identification Verified (Name & Yes ) Patient Requires Transmission-Based No Precautions Safety Precautions Height and Weight Body Mass Index (BMI) 35.3 BMI Classification Obese Vital Signs Temperature (97.8 F-99.1 F) 97.6 F L Temperature Source Temporal Pulse Rate (60-100) 79 Pulse Location Monitor Respiratory Rate (12-18) 16 Respiratory rate source Observation Oxygen Delivery Method Room Air Blood Pressure (90/60-120/80) 151/77 H Blood Pressure Mean 101 Source Monitor Position Sitting Blood Pressure Location Right Forearm History Since Last Visit- (Skip if this is Patient's initial visit) Have you changed medications since your No last visit? Any new allergies or adverse reactions No Had a fall/change in ADL's that may No increase risk of falls Signs or symptoms of abuse and/or No neglect since last visit Have you been in the hospital since your No last visit? Has dressing in place as prescribed Yes Has compression in place as prescribed Yes Has offloadiing in place as prescribed N/A Experienced any changes in pain level or No management Left Footwear Regular Shoe Right Footwear Regular Shoe Pain Scale: 0-10 Numeric Is Patient Pain Free? Yes WC - Nurse 1 - General Ulcer Measurement Start: 07/07/21 08:12 Freq: Status: Active Protocol: Activity Type Activity Date Activity User E-Sign Co-Sign Detail Recorded Client Recorded Date Recorded By Document 07/07/21 08:12 JF [id number] 07/07/21 08:15 JF Document 07/14/21 08:10 KR [id number] 07/14/21 08:12 KR Document 07/21/21 08:11 AK [id number] 07/21/21 08:17 AK Document 07/28/21 08:23 BMF [id number] 07/28/21 08:29 BMF 07/07/21 07/14/21 07/21/21 08:12 08:10 08:11 Wound Center Nurse 1 #1 Lateral LLE -Combined with other wound No No -Current Size (cm) - Length 0.6 0.4 0.9 -Current Size (cm) - Width 0.7 0.4 0.7 -Current Size (cm) - Depth 0.1 0.1 0.1 -Total Square Cm 0.42 0.16 0.63 -Date of Last Picture (Recall this field) -Photo Taken No No -Epithelialization Small 1-33% -Tunneling No -Undermining/Tunneling No No -Circular Undermining No No -Change in Wound Grade/Stage No -Exudate Amt Medium None Present None Present -Exudate Type Serosanguineous -Wound Margin Flat & Intact Distinct, Distinct, Outline Outline Attached Attached -Granulation Amt Medium (34-66%) None Present (0 %) -Granulation Quality Red -Slough/Fibrin Yes No -Necrosis Amt Small (1-33%) None Present (0 None Present (0 %) %) -Necrotic Tissue Type Adherent Slough -Structure Exposed N/A N/A -Texture (Lois-wound Skin Appearance) Not Assessed Assessed, No Abnormality, Scarring Assessed -Moisture (Lois-wound Skin Appearance) Assessed Assessed,Dry/ Assessed,Dry/ Scaly Scaly -Color (Lois-wound Skin Appearance) Assessed No Abnormality, No Abnormality, Assessed Assessed -Temperature (Lois-wound Skin No Abnormality No Abnormality No Abnormality Appearance) (Pt Warm) (Pt Warm) (Pt Warm) -Tenderness on Palpation (Lois-wound No No No Skin Appearance) -Ulcer Cleansing Rinsed/ Rinsed/ Rinsed/ Irrigated with Irrigated with Irrigated with Saline Saline Saline -Foul Odor after Cleansing No No No -Anesthetic Used 5% Lidocaine 5% Lidocaine 4% Lidocaine Gel Gel Solution Lower Limb Edema Present Yes No Left Calf (cm) 43.4 46 Left Ankle (cm) 07/28/21 08:23 Wound Center Nurse 1 #1 Lateral LLE -Combined with other wound No -Current Size (cm) - Length 0.5 -Current Size (cm) - Width 0.5 -Current Size (cm) - Depth 0.2 -Total Square Cm 0.25 -Date of Last Picture (Recall this 07/28/21 field) -Photo Taken Yes -Epithelialization Small 1-33% -Tunneling No -Undermining/Tunneling No -Circular Undermining No -Change in Wound Grade/Stage -Exudate Amt Small -Exudate Type Serosanguineous -Wound Margin Distinct, Outline Attached -Granulation Amt Large (67-100%) -Granulation Quality [place] -Slough/Fibrin Yes -Necrosis Amt Small (1-33%) -Necrotic Tissue Type Adherent Slough -Structure Exposed -Texture (Lois-wound Skin Appearance) Assessed,Callus ,Scarring -Moisture (Lois-wound Skin Appearance) Assessed,Dry/ Scaly -Color (Lois-wound Skin Appearance) Assessed -Temperature (Lois-wound Skin No Abnormality Appearance) (Pt Warm) -Tenderness on Palpation (Lois-wound No Skin Appearance) -Ulcer Cleansing Rinsed/ Irrigated with Saline -Foul Odor after Cleansing No -Anesthetic Used 5% Lidocaine Gel Lower Limb Edema Present Yes Left Calf (cm) Left Ankle (cm) WC - Nurse 2 - General Ulcer CM Notes Start: 07/07/21 08:12 Freq: Status: Active Protocol: Activity Type Activity Date Activity User E-Sign Co-Sign Detail Recorded Client Recorded Date Recorded By Document 07/07/21 08:32 PL [id number] 07/07/21 08:33 PL Document 07/14/21 08:42 PL [id number] 07/14/21 08:43 PL Document 07/21/21 09:24 PL [id number] 07/21/21 09:25 PL 07/07/21 07/14/21 07/21/21 08:32 08:42 09:24 Wound Center Nurse 2 #1 Lateral LLE -Time 08:22 08:34 08:25 -Correct Patient Yes Yes Yes -Correct Side, Site, Position Yes Yes Yes -Correct Procedure Yes Yes Yes -Procedure Performed Yes Yes Yes -Type of Procedure Debridement Debridement Debridement -Clinical Debridement Subcutaneous Subcutaneous Subcutaneous -Tissue Removed Subcutaneous Subcutaneous Subcutaneous -Post Debridement (cm) - Length 0.5 0.4 0.5 -Post Debridement (cm) - Width 0.5 0.4 0.4 -Post Debridement (cm) - Depth 0.1 0.1 0.1 -Total Square (Post) (cm) 0.25 0.16 0.20 -Area of Debridement (cm) - Length 0.5 0.4 0.5 -Area of Debridement (cm) - Width 0.5 0.4 0.4 -Total Square (Area) (cm) 0.25 0.16 0.20 -Tunneling No No No -Undermining/Tunneling No No No -Circular Undermining No No No -Wound/Ulcer Outcome Not Healed Not Healed Not Healed -Ulcer Cleansing Rinsed/ Rinsed/ Rinsed/ Irrigated with Irrigated with Irrigated with Saline Saline Saline -Foul Odor after Cleansing No No No -Bioengineered Tissue No No No -Bleeding Controlled with Pressure Pressure Pressure -Treatment Response Procedure Procedure Procedure Tolerated Well Tolerated Well Tolerated Well -Debridement - Subq, 1st 20sq cm Yes Yes Yes WC - Nurse 3 - General Ulcer D/C NN Start: 07/07/21 08:12 Freq: Status: Active Protocol: Activity Type Activity Date Activity User E-Sign Co-Sign Detail Recorded Client Recorded Date Recorded By Document 07/07/21 08:45 MELISSA [id number] 07/07/21 08:46 JF Document 07/14/21 08:47 KR [id number] 07/14/21 08:48 KR Document 07/21/21 08:33 AK [id number] 07/21/21 08:34 AK 07/07/21 07/14/21 07/21/21 08:45 08:47 08:33 Wound Care Nurse 3 #1 Lateral LLE -Ulcer Cleansing Rinsed/ Rinsed/ Rinsed/ Irrigated with Irrigated with Irrigated with Saline Saline Saline -Foul Odor after Cleansing No No -Negative Pressure Wound Therapy N/A -Primary Dressing Applied Promogran Promogran -Primary Dressing Covered/Secured with Dry Gauze & Dry Gauze,Dry Dry Gauze, Roll Gauze Gauze & Roll Secured with Gauze,Secured Tape with Tape -Promogran 0 0 Left -Lotion applied to leg before No compression wrap -Compression Wrap Surepress ($) Surepress ($) -Stockings Yes -Other own Vital Signs Pulse Rate (60-100) 71 Pulse Location Monitor Blood Pressure (90/60-120/80) 153/71 H Blood Pressure Mean 98 Source Monitor Position Semi-Fowlers Blood Pressure Location Right Arm Pain Scale: 0-10 Numeric Is Patient Pain Free? 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: CODE(S): I83.229 - Varicose veins of left lower extremity with both ulcer of unspecified site and inflammation; L97.929 - Non-pressure chronic ulcer of unspecified part of left lower leg with unspecified severity (2) Chronic venous insufficiency: CODE(S): I87.2 - Venous insufficiency (chronic) (peripheral) (3) Postphlebitic syndrome with inflammation: CODE(S): I87.029 - Postthrombotic syndrome with inflammation of u nspecified lower extremity (4) Leg swelling: CODE(S): M79.89 - Other specified soft tissue disorders (5) Leg edema: CODE(S): R60.0 - Localized edema (6) Abscess of left leg: CODE(S): L02.416 - Cutaneous abscess of left lower limb (7) Surgical wound present: CODE(S): T14.8XXA - Other injury of unspecified body region, initial encounter (8) Chronic venous insufficiency: CODE(S): I87.2 - Venous insufficiency (chronic) (peripheral) (9) Post-phlebitic dermatosis of both lower extremities: CODE(S): I87.093 - Postthrombotic syndrome with other complications of bilateral lower extremity (10) Hyperpigmentation of skin: CODE(S): L81.9 - Disorder of pigmentation, unspecified (11) Lipodermatosclerosis of both lower extremities: CODE(S): I83.11 - Varicose veins of right lower extremity with inflammation; I83.12 - Varicose veins of left lower extremity with inflammation (12) Wound of left leg: CODE(S): S81.802A - Unspecified open wound, left lower leg, initial encounter QUALIFIERS: Encounter type: subsequent encounter Qualified Code(s): S81.802D - Unspecified open wound, left lower leg, subsequent encounter (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 The patient has been advised to continue conservative treatment measures. These are to include leg elevation. He is to continue sleeping on a flat mattress at night. His legs are to be elevated to heart level, or higher, even during daytime hours. This is to be implemented as much as possible. The patient has been advised to refrain from prolonged, idle standing and sitting. Activity has been encouraged. Implementation of the calf and foot muscle pumps has been explained. Weight loss is also been recommended. 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 There is continued concern as to the patient's occupation and the demands for prolonged idle sitting, which is thought to be a contributing factor to the patient's lack of progress. He works more than 50 hours/week, 10 hours/day. This has been discussed with the patient repeatedly. The patient has been advised to elevate his lower extremities as much as possible, and to use a graduated compression stockings of 20 to 30 mmHg compression on a daily basis, avoid prolonged idle sitting and standing, remain active, etc. We are to continue the use of a Dakin's wash daily, and the application of Promogran topically to the wound each day. Approval for the use of EpiFix and PuraPly were sought, but denied by the patient's insurance company several times. The patient is not eligible for any skin graft substitutes, based upon his insurance plan. Once again, we have reinforced the need for compression, elevation, avoidance of prolonged idle sitting, etc. We will contin ue to monitor the patient's wound serially, and to assess the patient's progress. The patient smokes approximately 1/2 pack of cigarettes per day, and has been advised to refrain from his smoking habit. Influenza vaccine was not administered today. Patient stands 5 feet 10 inches tall. He weighs 246 pounds. His BMI is 35.3, which places him in a class II obesity category. Weight loss has been recommended, and collaboration with the patient's primary care physician has been advised. The patient will return in 1 week for reevaluation. Total time: 29 minutes.
== END 2021-08-02 23:59 ==
LOC: WC 08:15
PROVIDERS: PCP Family Medicine; Referring Provider Surgery; Visit Provider Surgery
DX: I83.222 Varicose veins of left lower extremity with both ulcer of calf and inflammation (principal); L97.222 Non-pressure chronic ulcer of left calf with fat layer exposed; T81.89XA Other complications of procedures, not elsewhere classified, initial encounter; Y83.8 Other surgical procedures as the cause of abnormal reaction of the patient, or of later complication, without mention of misadventure at the time of the procedure; E66.9 Obesity, unspecified; Z68.35 Body mass index [BMI] 35.0-35.9, adult; I89.0 Lymphedema, not elsewhere classified; F17.210 Nicotine dependence, cigarettes, uncomplicated; L02.416 Cutaneous abscess of left lower limb
CPT/HCPCS: 11042

== ENCOUNTER 2021-08-25 08:15 | Outpatient (RCR) | payer OTHER, SELFPAY ==
[2021-08-03 00:17] VITALS: BP 151/77; PULSE 79; RESP 16; TEMP 36.4; BMI 35.3
[2021-08-04 08:19] VITALS: BP 153/79; PULSE 88; RESP 16; TEMP 36.3; BMI 35.3
--- NOTE | 2021-08-04 08:37 | PCM.WC.HP ---
History of Present Illness Date of Service: 08/04/21 Chief Complaint: Open wound of the left lateral calf, status-post incision and drainage of abscess History of Wound: This is a 61-year-old male who was admitted to [facility] approximately 1 month prior to presentation with a large abscess on the left lateral calf. On February 11, 2020, he underwent incision and drainage of the abscess. He spent approximately 5 days in the hospital, and was subsequently discharged on Augmentin. The patient claims to sleep on a flat mattress at night. However, he suffers from chronic swelling and edema in both lower extremities. Additionally, he has a history of superficial thrombophlebitis in the left lower extremity, and has undergone a prior left lower extremity vein stripping procedure in the remote past. Patient has developed chronic skin changes in his lower extremities, which include hyperpigmentation and lipodermatosclerosis in the gaiter areas bilaterally. 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 The patient claims to be relatively active. Management the time of presentation included the use of a wet-to-dry gauze packing daily. It is noted that patient underwent a venous duplex examination during his hospitalization recently, that was negative for any evidence of thrombosis, but indicated valvular incompetence of the deep and superficial venous systems bilaterally. [facility] Medical History Chronic venous insufficiency Postphlebitic syndrome with inflammation Home Medications Augmentin 875-125 Tablet 875 mg PO BID 03/18/20 [History Last Taken Unknown] rosuvastatin 20 mg PO DAILY 03/18/20 [History Last Taken Unknown] Social History Smoking Status: Light Smoker (<10/day) Vital Signs Vital Signs Vital Signs: 08/04/21 08:19 Temperature 97.3 F L Temperature Source Temporal Pulse Rate 88 Respiratory Rate 16 Blood Pressure 153/79 H Blood Pressure Mean 103 Blood Pressure Source Monitor Blood Pressure Position Sitting Blood Pressure Location Left Arm Oxygen Delivery Method Room Air Weight Weight: 246 lb Body Mass Index (BMI) 35.3 Physical Exam Const alert, oriented x3, no apparent distress and well nourished General Appearance: cooperative and well developed Orientation / Consciousness: awake, oriented to person, oriented to place and oriented to time HEENT normocephalic and head/scalp atraumatic Head and Scalp: normal to inspection, normocephalic and atraumatic External Ear: external ears normal Eyes PERRL and EOMs intact bilaterally General Eye: normal appearance of both eyes Resp normal respiratory effort, normal air movement, no retractions and no use of accessory muscles Effort and Inspection: able to speak in complete sentences Extremity no calf tenderness Extremity Narrative: Chronic venous just persist in the patient's left lower extremity. These include large, bulging varicose veins, as well as hyperpigmentation and lipodermatosclerosis in the gaiter area. Very slight swelling is also noted. General Extremity: Negative for clubbing or cyanosis Skin Wound Narrative: The wound persists on the left lateral calf. It is smaller in size. There is a moderate amount of bioburden. There is no sign of infection or cellulitis. Dimensions are documented elsewhere. Neuro oriented x3, CN's II-XII intact bilaterally and moves all extremities Sensorium / Orientation: awake, alert, oriented to person, oriented to place and oriented to time Psych Appearance: grossly normal and appropriate Attitude: calm Activity / Motor Behavior: appropriate eye contact Speech: normal speech Mood & Affect: euthymic mood Thought Process: normal thought process Thought Content: normal thought content Attention / Concentration: attention grossly intact Debridement Note Debridement Note Wound debrided: Left lateral calf Laterality: Left Type of Debridement: Excisional debridement Anesthesia Used: 5% Lidocaine Gel Depth: Down to and including healthy tissue and in the subcutaneous layer Percentage of wound debrided: 100 Instrument Used: 3mm curette Tissue Removed: Bioburden Amount of bleeding with debridement: Mild Bleeding Controlled with: Compression and gauze Patient tolerated procedure: Patient tolerated procedure well Post-Debridement Measurements and Additional Note: Post-Debridement Measurements/Treatment KISHA - Nurse 1 - General Ulcer Assessment Start: 08/04/21 08:19 Freq: Status: Active Protocol: DIGNA Activity Type Activity Date Activity User E-Sign Co-Sign Detail Recorded Client Recorded Date Recorded By Document 08/04/21 08:19 LIVIA [id number] 08/04/21 08:21 MW 08/04/21 08:19 KISHA - Today's Visit Information Type of service Follow-up Visit (Physician/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 DEALER ) Arrival Mode Ambulatory Transfer Assistance None Accompanied by SELF Patient Identification Verified (Name & Yes ) Patient Requires Transmission-Based No Precautions Safety Precautions NA Height and Weight Body Mass Index (BMI) 35.3 BMI Classification Obese Vital Signs Temperature (97.8 F-99.1 F) 97.3 F L Temperature Source Temporal Pulse Rate (60-100) 88 Pulse Location Monitor Respiratory Rate (12-18) 16 Respiratory rate source Observation Oxygen Delivery Method Room Air Blood Pressure (90/60-120/80) 153/79 H Blood Pressure Mean 103 Source Monitor Position Sitting Blood Pressure Location Left Arm History Since Last Visit- (Skip if this is Patient's initial visit) Have you changed medications since your No last visit? Any new allergies or adverse reactions No Had a fall/change in ADL's that may No increase risk of falls Signs or symptoms of abuse and/or No neglect since last visit Have you been in the hospital since your No last visit? Has dressing in place as prescribed Yes Has compression in place as prescribed Yes Has offloadiing in place as prescribed N/A Experienced any changes in pain level or No management Left Footwear Regular Shoe Right Footwear Regular Shoe Pain Scale: 0-10 Numeric Is Patient Pain Free? Yes WC - Nurse 1 - General Ulcer Measurement Start: 08/04/21 08:19 Freq: Status: Active Protocol: Activity Type Activity Date Activity User E-Sign Co-Sign Detail Recorded Client Recorded Date Recorded By Document 08/04/21 08:19 MW [id number] 08/04/21 08:21 MW 08/04/21 08:19 Wound Center Nurse 1 #1 Lateral LLE -Combined with other wound No -Current Size (cm) - Length 0.1 -Current Size (cm) - Width 0.1 -Current Size (cm) - Depth 0.1 -Total Square Cm 0.01 -Photo Taken No -Epithelialization Medium 34-66% -Tunneling No -Undermining/Tunneling No -Circular Undermining No -Exudate Amt None Present -Wound Margin Flat & Intact -Granulation Amt None Present (0 %) -Granulation Quality N/A -Slough/Fibrin Yes -Necrosis Amt Large (67-100%) -Necrotic Tissue Type Adherent Slough -Structure Exposed N/A -Texture (Lois-wound Skin Appearance) Assessed, Scarring -Moisture (Lois-wound Skin Appearance) Assessed,Dry/ Scaly -Color (Lois-wound Skin Appearance) No Abnormality, Assessed -Temperature (Lois-wound Skin No Abnormality Appearance) (Pt Warm) -Tenderness on Palpation (Lois-wound No Skin Appearance) -Ulcer Cleansing Rinsed/ Irrigated with Saline -Foul Odor after Cleansing No -Anesthetic Used 4% Lidocaine Solution Lower Limb Edema Present Yes Left Calf (cm) 42.0 Left Ankle (cm) 24.2 WC - Nurse 3 - General Ulcer D/C NN Start: 08/04/21 08:19 Freq: Status: Active Protocol: Activity Type Activity Date Activity User E-Sign Co-Sign Detail Recorded Client Recorded Date Recorded By Document 08/04/21 08:36 DL [id number] 08/04/21 08:37 DL 08/04/21 08:36 Wound Care Nurse 3 #1 Lateral LLE -Ulcer Cleansing Rinsed/ Irrigated with Saline -Foul Odor after Cleansing No -Primary Dressing Applied Promogran -Primary Dressing Covered/Secured with Dry Gauze & Roll Gauze, Secured with Tape -Promogran 1 Treatment Response Procedure Tolerated Well Pain Scale: 0-10 Numeric Is Patient Pain Free? 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: CODE(S): I83.229 - Varicose veins of left lower extremity with both ulcer of unspecified site and inflammation; L97.929 - Non-pressure chronic ulcer of unspecified part of left lower leg with unspecified severity (2) Chronic venous insufficiency: CODE(S): I87.2 - Venous insufficiency (chronic) (peripheral) (3) Postphlebitic syndrome with inflammation: CODE(S): I87.029 - Postthrombotic syndrome with inflammation of unspecified lower extremity (4) Leg swelling: CODE(S): M79.89 - Other specified soft tissue disorders (5) Leg edema: CODE(S): R60.0 - Localized edema (6) Abscess of left leg: CODE(S): L02.416 - Cutaneous abscess of left lower limb (7) Surgical wound present: CODE(S): T14.8XXA - Other injury of unspecified body region, initial encounter (8) Chronic venous insufficiency: CODE(S): I87.2 - Venous insufficiency (chronic) (peripheral) (9) Post-phlebitic dermatosis of both lower extremities: CODE(S): I87.093 - Postthrombotic syndrome with other complications of bilateral lower extremity (10) Hyperpigmentation of skin: CODE(S): L81.9 - Disorder of pigmentation, unspecified (11) Lipodermatosclerosis of both lower extremities: CODE(S): I83.11 - Varicose veins of right lower extremity with inflammation; I83.12 - Varicose veins of left lower extremity with inflammation (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: (13) Wound of left leg: CODE(S): S81.802A - Unspecified open wound, left lower leg, initial encounter QUALIFIERS: Encounter type: subsequent encounter Qualified Code(s): S81.802D - Unspecified open wound, left lower leg, subsequent encounter (14) Obesity (BMI 35.0-39.9 without comorbidity): CODE(S): E66.9 - Obesity, unspecified (15) Personal history of thrombophlebitis: CODE(S): Z86.72 - Personal history of thrombophlebitis (16) Tobacco abuse: CODE(S): Z72.0 - Tobacco use (17) Tobacco abuse counseling: CODE(S): Z71.6 - Tobacco abuse counseling (18) Lymphedema of left leg: CODE(S): I89.0 - Lymphedema, not elsewhere classified PLAN: There appears to be improvement since the patient's last visit. The patient has been advised to continue conservative treatment measures. These are to include leg elevation. He is to continue sleeping on a flat mattress at night. His legs are to be elevated to heart level, or higher, even during daytime hours. This is to be implemented as much as possible. The patient has been advised to refrain from prolonged, idle standing and sitting. Activity has been encouraged. Implementation of the calf and foot muscle pumps has been explained. Weight loss is also been recommended. 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 There is continued concern as to the patient's occupation and the demands for prolonged idle sitting, which is thought to be a contributing factor to the patient's lack of progress. He works more than 50 hours/week, 10 hours/day. This has been discussed with the patient repeatedly. The patient has been advised to elevate his lower extremities as much as possible, and to use a graduated compression stockings of 20 to 30 mmHg compression on a daily basis, avoid prolonged idle sitting and standing, remain active, etc. We are to continue the use of a Dakin's wash daily, and the application of Promogran topically to the wound each day. Approval for the use of EpiFix and PuraPly were sought, but denied by the patient's insurance company several times. The patient is not eligible for any skin graft substitutes, based upon his insurance plan. Once again, we have reinforced the need for compression, elevation, avoidance of prolonged idle sitting, etc. We will continue to monitor the patient's wound serially, and to assess the patient's progress. The patient smokes approximately 1/2 pack of cigarettes per day, and has been advised to refrain from his smoking habit. Influenza vaccine was not administered today. Patient stands 5 feet 10 inches tall. He weighs 246 pounds. His BMI is 35.3, which places him in a class II obesity category. Weight loss has been recommended, and collaboration with the patient's primary care physician has been advised. The patient will return in 1 week for reevaluation. Total time: 28 minutes.
[2021-08-11 08:13] VITALS: BP 142/81; PULSE 82; RESP 16; TEMP 35.7; BMI 35.3
--- NOTE | 2021-08-11 08:24 | HP.PCM_ITS ---
History of Present Illness Date of Service: 08/11/21 Chief Complaint: Open wound of the left lateral calf, status-post incision and drainage of abscess History of Wound: This is a 61-year-old male who was admitted to [facility] approximately 1 month prior to presentation with a large a bscess on the left lateral calf. On February 11, 2020, he underwent incision and drainage of the abscess. He spent approximately 5 days in the hospital, and was subsequently discharged on Augmentin. The patient claims to sleep on a flat mattress at night. However, he suffers from chronic swelling and edema in both lower extremities. Additionally, he has a history of superficial thrombophlebitis in the left lower extremity, and has undergone a prior left lower extremity vein stripping procedure in the remote past. Patient has developed chronic skin changes in his lower extremities, which include hyperpigmentation and lipodermatosclerosis in the gaiter areas bilaterally. 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 The patient claims to be relatively active. Management the time of presentation included the use of a wet-to-dry gauze packing daily. It is noted that patient underwent a venous duplex examination during his hospitalization recently, that was negative for any evidence of thrombosis, but indicated valvular incompetence of the deep and superficial venous systems bilaterally. [facility] Medical History Chronic venous insufficiency Postphlebitic syndrome with inflammation Home Medications Augmentin 875-125 Tablet 875 mg PO BID 03/18/20 [History Last Taken Unknown] rosuvastatin 20 mg PO DAILY 03/18/20 [History Last Taken Unknown] Social History Smoking Status: Light Smoker (<10/day) Vital Signs Vital Signs Vital Signs: 08/11/21 08:13 Temperature 96.3 F L Temperature Source Temporal Pulse Rate 82 Respiratory Rate 16 Blood Pressure 142/81 H Blood Pressure Mean 101 Blood Pressure Source Monitor Blood Pressure Position Sitting Blood Pressure Location Left Arm Oxygen Delivery Method Room Air Weight Weight: 246 lb Body Mass Index (BMI) 35.3 Physical Exam Const alert, oriented x3, no apparent distress and well nourished General Appearance: cooperative and well developed Orientation / Consciousness: awake, oriented to person, oriented to place and oriented to time HEENT normocephalic and head/scalp atraumatic Head and Scalp: normal to inspection, normocephalic and atraumatic External Ear: external ears normal Eyes PERRL and EOMs intact bilaterally General Eye: normal appearance of both eyes Resp normal respiratory effort, normal air movement, no retractions and no use of accessory muscles Effort and Inspection: able to speak in complete sentences Extremity no calf tenderness General Extremity: Negative for clubbing or cyanosis Skin Wound Narrative: Very slight swelling and edema are noted in the patient's left lower extremity. Chronic hyperpigmentation is noted, as well as scattered large varicosities. The ulceration on the left lateral calf persists, but is quite small in size. It has decreased in size significantly. Dimensions are documented elsewhere. There is no sign of infection or cellulitis. There is a small amount of bioburden. Neuro oriented x3 and CN's II-XII intact bilaterally Sensorium / Orientation: awake, alert, oriented to person, oriented to place and oriented to time Psych Appearance: grossly normal and appropriate Attitude: calm Activity / Motor Behavior: appropriate eye contact Speech: normal speech Mood & Affect: euthymic mood Thought Process: normal thought process Thought Content: normal thought content Attention / Concentration: attention grossly intact Debridement Note Debridement Note Wound debrided: Left lateral calf Laterality: Left Type of Debridement: Excisional debridement Anesthesia Used: 5% Lidocaine Gel Depth: Down to and including healthy tissue and in the subcutaneous layer Percentage of wound debrided: 100 Instrument Used: 3mm curette Tissue Removed: Bioburden Severity: Fat Layer Exposed Amount of bleeding with debridement: Mild Bleeding Controlled with: Compression and gauze Patient tolerated procedure: Patient tolerated procedure well Post-Debridement Measurements and Additional Note: Post-Debridement Measurements/Treatment - Nurse 1 - General Ulcer Assessment Start: 08/04/21 08:19 Freq: Status: Active Protocol: DIGNA Activity Type Activity Date Activity User E-Sign Co-Sign Detail Recorded Client Recorded Date Recorded By Document 08/04/21 08:19 [id number] 08/04/21 08:21 Document 08/11/21 08:13 [facility] [id number] 08/11/21 08:16 BM 08/04/21 08/11/21 08:19 08:13 - Today's Visit Information Type of service Follow-up Visit Follow-up Visit (Physician/PARANORMAL INVESTIGATOR (Physician/PARANORMAL INVESTIGATOR ) ) Arrival Mode Ambulatory Ambulatory Transfer Assistance None None Accompanied by SELF Patient Identification Verified (Name & Yes Yes ) Patient Requires Transmission-Based No No Precautions Safety Precautions NA Height and Weight Body Mass Index (BMI) 35.3 35.3 BMI Classification Obese Obese Vital Signs Temperature (97.8 F-99.1 F) 97.3 F L 96.3 F L Temperature Source Temporal Temporal Pulse Rate (60-100) 88 82 Pulse Location Monitor Monitor Respiratory Rate (12-18) 16 16 Respiratory rate source Observation Observation Oxygen Delivery Method Room Air Room Air Blood Pressure (90/60-120/80) 153/79 H 142/81 H Blood Pressure Mean 103 101 Source Monitor Monitor Position Sitting Sitting Blood Pressure Location Left Arm Left Arm History Since Last Visit- (Skip if this is Patient's initial visit) Have you changed medications since your No No last visit? Any new allergies or adverse reactions No No Had a fall/change in ADL's that may No No increase risk of falls Signs or symptoms of abuse and/or No No neglect since last visit Have you been in the hospital since your No No last visit? Has dressing in place as prescribed Yes Yes Has compression in place as prescribed Yes Yes Has offloadiing in place as prescribed N/A N/A Experienced any changes in pain level or No No management Left Footwear Regular Shoe Regular Shoe Right Footwear Regular Shoe Regular Shoe Pain Scale: 0-10 Numeric Is Patient Pain Free? Yes Yes WC - Nurse 1 - General Ulcer Measurement Start: 08/04/21 08:19 Freq: Status: Active Protocol: Activity Type Activity Date Activity User E-Sign Co-Sign Detail Recorded Client Recorded Date Recorded By Document 08/04/21 08:19 [id number] 08/04/21 08:21 MW Document 08/11/21 08:13 [facility] [id number] 08/11/21 08:16 BM 08/04/21 08/11/21 08:19 08:13 Wound Center Nurse 1 #1 Lateral LLE -Combined with other wound No No -Current Size (cm) - Length 0.1 0.1 -Current Size (cm) - Width 0.1 0.1 -Current Size (cm) - Depth 0.1 0.1 -Total Square Cm 0.01 0.01 -Photo Taken No No -Epithelialization Medium 34-66% Small 1-33% -Tunneling No No -Undermining/Tunneling No No -Circular Undermining No No -Exudate Amt None Present Small -Exudate Type Serosanguineous -Wound Margin Flat & Intact Flat & Intact -Granulation Amt None Present (0 Large (67-100%) %) -Granulation Quality N/A Red -Slough/Fibrin Yes No -Necrosis Amt Large (67-100%) None Present (0 %) -Necrotic Tissue Type Adherent Slough -Structure Exposed N/A -Texture (Lois-wound Skin Appearance) Assessed, Assessed, Scarring Scarring -Moisture (Lois-wound Skin Appearance) Assessed,Dry/ Assessed,Dry/ Scaly Scaly -Color (Lois-wound Skin Appearance) No Abnormality, Assessed Assessed -Temperature (Lois-wound Skin No Abnormality No Abnormality Appearance) (Pt Warm) (Pt Warm) -Tenderness on Palpation (Lois-wound No No Skin Appearance) -Ulcer Cleansing Rinsed/ Rinsed/ Irrigated with Irrigated with Saline Saline -Foul Odor after Cleansing No No -Anesthetic Used 4% Lidocaine 5% Lidocaine Solution Gel Lower Limb Edema Present Yes Yes Left Calf (cm) 42.0 38 Left Ankle (cm) 24.2 24 WC - Nurse 2 - General Ulcer CM Notes Start: 08/04/21 08:19 Freq: Status: Active Protocol: Activity Type Activity Date Activity User E-Sign Co-Sign Detail Recorded Client Recorded Date Recorded By Document 08/04/21 08:44 PL [id number] 08/04/21 08:47 PL 08/04/21 08:44 Wound Center Nurse 2 #1 Lateral LLE -Time 08:30 -Correct Patient Yes -Correct Side, Site, Position Yes -Correct Procedure Yes -Procedure Performed Yes -Type of Procedure Debridement -Clinical Debridement Subcutaneous -Tissue Removed Subcutaneous -Post Debridement (cm) - Length 0.2 -Post Debridement (cm) - Width 0.2 -Post Debridement (cm) - Depth 0.1 -Total Square (Post) (cm) 0.04 -Area of Debridement (cm) - Length 0.2 -Area of Debridement (cm) - Width 0.2 -Total Square (Area) (cm) 0.04 -Tunneling No -Undermining/Tunneling No -Circular Undermining No -Wound/Ulcer Outcome Not Healed -Ulcer Cleansing Rinsed/ Irrigated with Saline -Foul Odor after Cleansing No -Bioengineered Tissue No -Bleeding Controlled with Pressure -Treatment Response Procedure Tolerated Well -Debridement - Subq, 1st 20sq cm Yes WC - Nurse 3 - General Ulcer D/C NN Start: 08/04/21 08:19 Freq: Status: Active Protocol: Activity Type Activity Date Activity User E-Sign Co-Sign Detail Recorded Client Recorded Date Recorded By Document 08/04/21 08:36 DL [id number] 08/04/21 08:37 DL 08/04/21 08:36 Wound Care Nurse 3 -Ulcer Cleansing Rinsed/ Irrigated with Saline -Foul Odor after Cleansing No -Primary Dressing Applied Promogran -Primary Dressing Covered/Secured with Dry Gauze & Roll Gauze, Secured with Tape -Promogran 1 Treatment Response Procedure Tolerated Well Pain Scale: 0-10 Numeric Is Patient Pain Free? 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: CODE(S): I83.229 - Varicose veins of left lower extremity with both ulcer of unspecified site and inflammation; L97.929 - Non-pressure chronic ulcer of unspecified part of left lower leg with unspecified severity (2) Chronic venous insufficiency: CODE(S): I87.2 - Venous insufficiency (chronic) (peripheral) (3) Postphlebitic syndrome with inflammation: CODE(S): I87.029 - Postthrombotic syndrome with inflammation of unspecified lower extremity (4) Leg edema: CODE(S): R60.0 - Localized edema (5) Leg swelling: CODE(S): M79.89 - Other specified soft tissue disorders (6) Abscess of left leg: CODE(S): L02.416 - Cutaneous abscess of left lower limb (7) Surgical wound present: CODE(S): T14.8XXA - Other injury of unspecified body region, initial encounter (8) Chronic venous insufficiency: CODE(S): I87.2 - Venous insufficiency (chronic) (peripheral) (9) Post-phlebitic dermatosis of both lower extremities: CODE(S): I87.093 - Postthrombotic syndrome with other complications of bilateral lower extremity (10) Hyperpigmentation of skin: CODE(S): L81.9 - Disorder of pigmentation, unspecified (11) Lipodermatosclerosis of both lower extremities: CODE(S): I83.11 - Varicose veins of right lower extremity with inflammation; I83.12 - Varicose veins of left lower extremity with inflammation (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: (13) Wound of left leg: CODE(S): S81.802A - Unspecified open wound, left lower leg, initial encounter QUALIFIERS: Encounter type: subsequent encounter Qualified Code(s): S81.802D - Unspecified open wound, left lower leg, subsequent encounter (14) Obesity (BMI 35.0-39.9 without comorbidity): CODE(S): E66.9 - Obesity, unspecified (15) Personal history of thrombophlebitis: CODE(S): Z86.72 - Personal history of thrombophlebitis (16) Tobacco abuse: CODE(S): Z72.0 - Tobacco use (17) Tobacco abuse counseling: CODE(S): Z71.6 - Tobacco abuse counseling PLAN: There appears to be improvement since the patient's last visit. The patient has been advised to continue conservative treatment measures. These are to include leg elevation. He is to continue sleeping on a flat mattress at night. His legs are to be elevated to heart level, or higher, even during daytime hours. This is to be implemented as much as possible. The patient has been advised to refrain from prolonged, idle standing and sitting. Activity has been encouraged. Implementation of the calf and foot muscle pumps has been explained. Weight loss is also been recommended. 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 There is continued concern as to the patient's occupation and the demands for prolonged idle sitting, which is thought to be a contributing factor to the patient's lack of progress. He works more than 50 hours/week, 10 hours/day. This has been discussed with the patient repeatedly. The patient has been advised to elevate his lower extremities as much as possible, and to use a graduated compression stockings of 20 to 30 mmHg compression on a daily basis, avoid prolonged idle sitting and standing, remain active, etc. We are to continue the use of a Dakin's wash daily, and the application of Promogran topically to the wound each day. Approval for the use of EpiFix and PuraPly were sought, but denied by the patient's insurance company several times. The patient is not eligible for any skin graft substitutes, based upon his insurance plan. Once again, we have reinforced the need for compression, elevation, avoidance of prolonged idle sitting, etc. We will continue to monitor the patient's wound serially, and to assess the patient's progress. The patient smokes approximately 1/2 pack of cigarettes per day, and has been advised to refrain from his smoking habit. Influenza vaccine was not administered today. Patient stands 5 feet 10 inches tall. He weighs 246 pounds. His BMI is 35.3, which places him in a class II obesity category. Weight loss has been recommended, and collaboration with the patient's primary care physician has been advised. The patient will return in 2 weeks for reevaluation. Total time: 29 minutes.
[2021-08-25 08:14] VITALS: BP 160/78; PULSE 85; RESP 16; TEMP 36.1; BMI 35.3
--- NOTE | 2021-08-25 08:41 | PCM.WC.HP ---
History of Present Illness Date of Service: 08/25/21 Chief Complaint: Open wound of the left lateral calf, status-post incision and drainage of abscess History of Wound: This is a 61-year-old male who was admitted to [facility] approximately 1 month prior to presentation with a large abscess on the left lateral calf. On February 11, 2020, he underwent incision and drainage of the abscess. He spent approximately 5 days in the hospital, and was subsequently discharged on Augmentin. The patient claims to sleep on a flat mattress at night. However, he suffers from chronic swelling and edema in both lower extremities. Additionally, he has a history of superficial thrombophlebitis in the left lower extremity, and has undergone a prior left lower extremity vein stripping procedure in the remote past. Patient has developed chronic skin changes in his lower extremities, which include hyperpigmentation and lipodermatosclerosis in the gaiter areas bilaterally. 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 The patient claims to be relatively active. Management the time of presentation included the use of a wet-to-dry gauze packing daily. It is noted that patient underwent a venous duplex examination during his hospitalization recently, that was negative for any evidence of thrombosis, but indicated valvular incompetence of the deep and superficial venous systems bilaterally. PENDING SALE TO [facility] Medical History Chronic venous insufficiency Postphlebitic syndrome with inflammation Home Medications Augmentin 875-125 Tablet 875 mg PO BID 03/18/20 [History Last Taken Unknown] rosuvastatin 20 mg PO DAILY 03/18/20 [History Last Taken Unknown] Social History Smoking Status: Light Smoker (<10/day) Vital Signs Vital Signs Vital Signs: 08/25/21 08:14 Temperature 96.9 F L Temperature Source Temporal Pulse Rate 85 Respiratory Rate 16 Blood Pressure 160/78 H Blood Pressure Mean 105 Blood Pressure Source Monitor Blood Pressure Position Sitting Blood Pressure Location Left Arm Oxygen Delivery Method Room Air Weight Weight: 246 lb Body Mass Index (BMI) 35.3 Physical Exam Const alert, oriented x3, no apparent distress and well nourished General Appearance: cooperative and well developed Orientation / Consciousness: awake, oriented to person, oriented to place and oriented to time HEENT normocephalic and head/scalp atraumatic Head and Scalp: normal to inspection, normocephalic and atraumatic External Ear: external ears normal Eyes PERRL and EOMs intact bilaterally General Eye: normal appearance of both eyes Resp normal respiratory effort, normal air movement, no retractions and no use of accessory muscles Effort and Inspection: able to speak in complete sentences Extremity no calf tenderness Extremity Narrative: The wound on the left lateral calf is now completely healed and epithelialized. Nonetheless, multiple large, prominent varicose veins persist. Lipodermatosclerosis and hyperpigmentation also persist in the left gaiter area. There is slight swelling. General Extremity: Negative for clubbing or cyanosis Neuro oriented x3 and CN's II-XII intact bilaterally Psych Appearance: grossly normal and appropriate Attitude: calm Activity / Motor Behavior: appropriate eye contact Speech: normal speech Mood & Affect: euthymic mood Thought Process: normal thought process Thought Content: normal thought content Attention / Concentration: attention grossly intact Debridement Note Debridement Note No debridement was completed: No debridement was completed today Post-Debridement Measurements and Additional Note: Post-Debridement Measurements/Treatment - Nurse 1 - General Ulcer Assessment Start: 08/04/21 08:19 Freq: Status: Active Protocol: [email or web address].[email or web address] Activity Type Activity Date Activity User E-Sign Co-Sign Detail Recorded Client Recorded Date Recorded By Document 08/04/21 08:19 [id number] 08/04/21 08:21 Document 08/11/21 08:13 [facility] [id number] 08/11/21 08:16 [facility] Document 08/25/21 08:14 UT [id number] 08/25/21 08:20 UT 08/04/21 08/11/21 08/25/21 08:19 08:13 08:14 - Today's Visit Information Type of service Follow-up Visit Follow-up Visit Follow-up Visit (Physician/STAFF NURSE ICU RESOURCE TEAM (Physician/STAFF NURSE ICU RESOURCE TEAM (Physician/STAFF NURSE ICU RESOURCE TEAM ) ) ) Arrival Mode Ambulatory Ambulatory Ambulatory Transfer Assistance None None None Accompanied by SELF Patient Identification Verified (Name & Yes Yes Yes ) Patient Requires Transmission-Based No No No Precautions Safety Precautions NA Height and Weight Body Mass Index (BMI) 35.3 35.3 35.3 BMI Classification Obese Obese Obese Vital Signs Temperature (97.8 F-99.1 F) 97.3 F L 96.3 F L 96.9 F L Temperature Source Temporal Temporal Temporal Pulse Rate (60-100) 88 82 85 Pulse Location Monitor Monitor Monitor Respiratory Rate (12-18) 16 16 16 Respiratory rate source Observation Observation Observation Oxygen Delivery Method Room Air Room Air Room Air Blood Pressure (90/60-120/80) 153/79 H 142/81 H 160/78 H Blood Pressure Mean 103 101 105 Source Monitor Monitor Monitor Position Sitting Sitting Sitting Blood Pressure Location Left Arm Left Arm Left Arm History Since Last Visit- (Skip if this is Patient's initial visit) Have you changed medications since your No No No last visit? Any new allergies or adverse reactions No No No Had a fall/change in ADL's that may No No No increase risk of falls Signs or symptoms of abuse and/or No No No neglect since last visit Have you been in the hospital since your No No No last visit? Has dressing in place as prescribed Yes Yes Yes Has compression in place as prescribed Yes Yes Yes Has offloadiing in place as prescribed N/A N/A N/A Experienced any changes in pain level or No No No management Left Footwear Regular Shoe Regular Shoe Regular Shoe Right Footwear Regular Shoe Regular Shoe Regular Shoe Pain Scale: 0-10 Numeric Is Patient Pain Free? Yes Yes Yes WC - Nurse 1 - General Ulcer Measurement Start: 08/04/21 08:19 Freq: Status: Active Protocol: Activity Type Activity Date Activity User E-Sign Co-Sign Detail Recorded Client Recorded Date Recorded By Document 08/04/21 08:19 [id number] 08/04/21 08:21 Document 08/11/21 08:13 [facility] [id number] 08/11/21 08:16 [facility] Document 08/25/21 08:14 AK [id number] 08/25/21 08:20 AK 08/04/21 08/11/21 08/25/21 08:19 08:13 08:14 Wound Center Nurse 1 #1 Lateral LLE -Combined with other wound No No No -Current Size (cm) - Length 0.1 0.1 0.5 -Current Size (cm) - Width 0.1 0.1 0.5 -Current Size (cm) - Depth 0.1 0.1 0.1 -Total Square Cm 0.01 0.01 0.25 -Photo Taken No No No -Epithelialization Medium 34-66% Small 1-33% None Present -Tunneling No No No -Undermining/Tunneling No No No -Circular Undermining No No No -Exudate Amt None Present Small None Present -Exudate Type Serosanguineous -Wound Margin Flat & Intact Flat & Intact Distinct, Outline Attached -Granulation Amt None Present (0 Large (67-100%) None Present (0 %) %) -Granulation Quality N/A Red -Slough/Fibrin Yes No Yes -Necrosis Amt Large (67-100%) None Present (0 Small (1-33%) %) -Necrotic Tissue Type Adherent Slough Eschar -Structure Exposed N/A -Texture (Lois-wound Skin Appearance) Assessed, Assessed, Assessed, Scarring Scarring Scarring -Moisture (Lois-wound Skin Appearance) Assessed,Dry/ Assessed,Dry/ Assessed,Dry/ Scaly Scaly Scaly -Color (Lois-wound Skin Appearance) No Abnormality, Assessed Assessed Assessed -Temperature (Lois-wound Skin No Abnormality No Abnormality No Abnormality Appearance) (Pt Warm) (Pt Warm) (Pt Warm) -Tenderness on Palpation (Lois-wound No No No Skin Appearance) -Ulcer Cleansing Rinsed/ Rinsed/ Soap and Water Irrigated with Irrigated with Saline Saline -Foul Odor after Cleansing No No No -Anesthetic Used 4% Lidocaine 5% Lidocaine 5% Lidocaine Solution Gel Gel Lower Limb Edema Present Yes Yes Yes Left Calf (cm) 42.0 38 41 Left Ankle (cm) 24.2 24 26.5 WC - Nurse 2 - General Ulcer CM Notes Start: 08/04/21 08:19 Freq: Status: Active Protocol: Activity Type Activity Date Activity User E-Sign Co-Sign Detail Recorded Client Recorded Date Recorded By Document 08/04/21 08:44 PL [id number] 08/04/21 08:47 PL Document 08/11/21 08:28 PL [id number] 08/11/21 08:29 PL 08/04/21 08/11/21 08:44 08:28 Wound Center Nurse 2 #1 Lateral LLE -Time 08:30 08:22 -Correct Patient Yes Yes -Correct Side, Site, Position Yes Yes -Correct Procedure Yes Yes -Procedure Performed Yes Yes -Type of Procedure Debridement Debridement -Clinical Debridement Subcutaneous Subcutaneous -Tissue Removed Subcutaneous Subcutaneous -Post Debridement (cm) - Length 0.2 0.2 -Post Debridement (cm) - Width 0.2 0.1 -Post Debridement (cm) - Depth 0.1 0.1 -Total Square (Post) (cm) 0.04 0.02 -Area of Debridement (cm) - Length 0.2 0.2 -Area of Debridement (cm) - Width 0.2 0.1 -Total Square (Area) (cm) 0.04 0.02 -Tunneling No No -Undermining/Tunneling No No -Circular Undermining No No -Wound/Ulcer Outcome Not Healed Not Healed -Ulcer Cleansing Rinsed/ Rinsed/ Irrigated with Irrigated with Saline Saline -Foul Odor after Cleansing No Yes, Due to Product Use -Bioengineered Tissue No No -Bleeding Controlled with Pressure Pressure -Treatment Response Procedure Procedure Tolerated Well Tolerated Well -Debridement - Subq, 1st 20sq cm Yes Yes - Nurse 3 - General Ulcer D/C NN Start: 08/04/21 08:19 Freq: Status: Active Protocol: Activity Type Activity Date Activity User E-Sign Co-Sign Detail Recorded Client Recorded Date Recorded By Document 08/04/21 08:36 DL [id number] 08/04/21 08:37 DL Document 08/11/21 08:29 BM [id number] 08/11/21 08:30 [facility] 08/04/21 08/11/21 08:36 08:29 Wound Care Nurse 3 #1 Lateral LLE -Ulcer Cleansing Rinsed/ Rinsed/ Irrigated with Irrigated with Saline Saline -Foul Odor after Cleansing No No -Primary Dressing Applied Promogran -Other Dressing promogran -Primary Dressing Covered/Secured with Dry Gauze & Dry Gauze & Roll Gauze, Roll Gauze, Secured with Secured with Tape Tape -Other 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: CODE(S): I83.229 - Varicose veins of left lower extremity with both ulcer of unspecified site and inflammation; L97.929 - Non-pressure chronic ulcer of unspecified part of left lower leg with unspecified severity (2) Chronic venous insufficiency: CODE(S): I87.2 - Venous insufficiency (chronic) (peripheral) (3) Postphlebitic syndrome with inflammation: CODE(S): I87.029 - Postthrombotic syndrome with inflammation of unspecified lower extremity (4) Leg swelling: CODE(S): M79.89 - Other specified soft tissue disorders (5) Leg edema: CODE(S): R60.0 - Localized edema (6) Abscess of left leg: CODE(S): L02.416 - Cutaneous abscess of left lower limb (7) Surgical wound present: CODE(S): T14.8XXA - Other injury of unspecified body region, initial encounter (8) Chronic venous insufficiency: CODE(S): I87.2 - Venous insufficiency (chronic) (peripheral) (9) Post-phlebitic dermatosis of both lower extremities: CODE(S): I87.093 - Postthrombotic syndrome with other complications of bilateral lower extremity (10) Hyperpigmentation of skin: CODE(S): L81.9 - Disorder of pigmentation, unspecified (11) Lipodermatosclerosis of both lower extremities: CODE(S): I83.11 - Varicose veins of right lower extremity with inflammation; I83.12 - Varicose veins of left lower extremity with inflammation (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: (13) Wound of left leg: CODE(S): S81.802A - Unspecified open wound, left lower leg, initial encounter QUALIFIERS: Encounter type: subsequent encounter Qualified Code(s): S81.802D - Unspecified open wound, left lower leg, subsequent encounter (14) Obesity (BMI 35.0-39.9 without comorbidity): CODE(S): E66.9 - Obesity, unspecified (15) Personal history of thrombophlebitis: CODE(S): Z86.72 - Personal history of thrombophlebitis (16) Tobacco abuse: CODE(S): Z72.0 - Tobacco use (17) Tobacco abuse counseling: CODE(S): Z71.6 - Tobacco abuse counseling (18) Lymphedema of left leg: CODE(S): I89.0 - Lymphedema, not elsewhere classified PLAN: The wound on the patient's left lateral calf is now completely healed and epithelialized. Therefore, the patient is to be discharged. He will follow-up henceforth on an as-needed basis. He is in possession of graduated compression stockings of 20 to 30 mmHg compression, knee-high length. He is to continue wearing these daily. He is to continue implementing other conservative treatment measures which have been previously implemented. These include leg elevation is much as possible. Leg elevation is to be to heart level, or higher. Activity has been encouraged. Prolonged idle sitting has been discouraged. Weight loss measures have been encouraged. The use of anti-inflammatory medications as necessary has also been discussed. The patient has been advised to contact my office for an appointment in October 2021. At that time, we will further discuss the option of endovenous ablation procedures for his left lower extremity. He has stigmata, manifestations, and symptoms consistent with chronic venous insufficiency, which is quite severe, with lipodermatosclerosis, hyperpigmentation, large varicose veins, etc. It is anticipated that the patient's venous disease will be a long-term problem. Superficial venous ablation would appear to be indicated given the severity of the patient's venous disease. Therefore, the patient has been advised to follow-up on an outpatient basis in October 2021 for a further discussion of the interventional options. In the interim, conservative treatment measures are to be continued. Total time: 28 minutes.
== END 2021-08-25 11:05 | disposition home or self-care (01) ==
LOC: WC 08:15
PROVIDERS: PCP Family Medicine; Referring Provider Surgery; Visit Provider Surgery
DX: I83.222 Varicose veins of left lower extremity with both ulcer of calf and inflammation (principal); L97.222 Non-pressure chronic ulcer of left calf with fat layer exposed; T81.89XA Other complications of procedures, not elsewhere classified, initial encounter; Y83.8 Other surgical procedures as the cause of abnormal reaction of the patient, or of later complication, without mention of misadventure at the time of the procedure; F17.210 Nicotine dependence, cigarettes, uncomplicated; L02.416 Cutaneous abscess of left lower limb; L81.9 Disorder of pigmentation, unspecified; E66.9 Obesity, unspecified; I89.0 Lymphedema, not elsewhere classified
CPT/HCPCS: 11042; 99213; G0463